=== PATIENT | male | born 1985 | race Hispanic/Latino ===

== ENCOUNTER 2018-01-29 18:46 | Emergency (ER) | payer OTHER ==
[2018-01-29] MEDS ORDERED: NA CHLORIDE 0.9% 1,000 ML ONE (20:06)
[2018-01-29 20:13] LABS: Urine Blood TRACE (NEG); Urine Glucose NEGATIVE (NEG); Urine Protein NEGATIVE (NEG); Urine pH 6.5 (5.0-7.0)
[2018-01-29 20:18] LABS: Absolute Lymphocytes (CBC) 1.5 K/uL (0.7-4.9); Absolute Monocytes 0.7 K/uL (0.1-1.3); Absolute Neutrophil 8.8 K/uL (1.8-8.0); Basophils % 0.4 % (0-1.3); Eosinophils % 1.3 % (0-4.4); Hematocrit 43.5 % (39.6-49.0); Lymphocytes % 13.2 % (15.3-44.8); MCH 30.4 pg (27.0-35.0); MCV 90.3 fL (80-100); MPV 7.7 fL (7.6-11.3); RBC Red Blood Cell Count 4.82 M/uL (4.33-5.43)
[2018-01-29 20:22] LABS: Urine Bacteria <20 /HPF (NONE SEEN); Urine Culture Reflex Order REFLEXED; Urine RBC <5 /HPF (NONE SEEN)
[2018-01-29] MEDS ORDERED: MORPHINE 4 MG/ML SYR ONE (20:40)
[2018-01-29] MEDS ORDERED: ONDANSETRON 4 MG/2 ML VIAL ONE (20:40)
[2018-01-29 20:46] LABS: ALT/SGPT 59 U/L (12-78); AST/SGOT 32 U/L (15-37); Albumin 3.9 g/dL (3.4-5.0); Alkaline Phosphatase 160 U/L (45-117); Amylase Level 64 U/L (25-115); BUN Blood Urea Nitrogen 10 mg/dL (7-18); Bicarbonate 28 mmol/L (21-32); Bilirubin Direct < 0.1 mg/dL (0-0.2); Bilirubin Total 0.4 mg/dL (0.2-1.0); Glucose Level 88 mg/dL (74-106); Lipase 116 U/L (73-393); Potassium 3.8 mmol/L (3.5-5.1); Protein, Total 8.5 g/dL (6.4-8.2); Sodium Level 140 mmol/L (136-145)
--- NOTE | 2018-01-29 21:21 | EDPHYS ---
Physician Documentation [facility] Name: Aidan East Age: 32 yrs Sex: Male : 1985 Arrival Date: 01/29/2018 Time: 18:48 Bed 20 Private MD: ED Physician Manuel Jackson Historical: - Allergies: 01/29 19:04 No Known Allergies; sv - Home Meds: 19:04 None [Active]; sv - PMHx: 19:04 paraplegic; UTI; sv - PSHx: 19:04 T12 vertebrae; sv - Immunization history:: Adult Immunizations up to date. - Social history:: Smoking status: Patient/guardian denies using tobacco. - Ebola Screening: : No symptoms or risks identified at this time. Vital Signs: 19:04 BP 124 / 90; Pulse 126; Resp 18; Temp 98.6(O); Pulse Ox 96% ; Weight 113.4 kg (R); sv 20:18 BP 127 / 84; Pulse 104; Resp 16 S; Pulse Ox 97% on R/A; jd3 21:23 BP 136 / 78; Pulse 100; Resp 15 S; Pulse Ox 96% on R/A; jd3 MDM: 19:08 Medical screening is not applicable. 01/29 19:18 Order name: Amylase, Serum; Complete Time: 20:56 v 01/29 19:18 Order name: Basic Metabolic Panel; Complete Time: 20:56 v 01/29 19:18 Order name: CBC with Diff; Complete Time: 20:56 v 01/29 19:18 Order name: Creatinine for Radiology; Complete Time: 20:56 v 01/29 19:18 Order name: Hepatic Function; Complete Time: 20:56 v 01/29 19:18 Order name: Lipase; Complete Time: 20:56 v 01/29 19:18 Order name: Urine Microscopic Only; Complete Time: 20:25 v 01/29 19:18 Order name: IV Saline Lock; Complete Time: 20:08 v 01/29 19:18 Order name: Labs collected and sent; Complete Time: 20:08 v 01/29 20:04 Order name: Urine Dipstick--Ancillary (enter results); Complete Time: 20:25 rg2 01/29 20:23 Order name: Urine Culture EDVA 01/29 19:18 Order name: Urine Dipstick-Ancillary (obtain specimen); Complete Time: 20:09 kav Administered Medications: 20:08 Drug: NS 0.9% 1000 ml Route: IV; Rate: 1 bolus; Site: right antecubital; jd3 21:24 Follow up: Response: No adverse reaction; IV Status: Completed infusion; IV Intake: jd3 1000ml 20:41 Drug: Zofran 4 mg Route: IVP; Site: right antecubital; jd3 21:24 Follow up: Response: No adverse reaction jd3 20:41 Drug: morphine 4 mg Route: IVP; Site: right antecubital; jd3 21:24 Follow up: Response: No adverse reaction jd3 Disposition: 01/29/18 20:57 Discharged to Home. Impression: Urinary tract infection, site not specified. - Condition is Stable. - Discharge Instructions: Urinary Tract Infection, Adult, [id number], Antibiotic Medicine, [id number]. - Prescriptions for Zofran 4 mg Oral Tablet - take 1 tablet by ORAL route every 12 hours As needed; 20 tablet. Tramadol 50 mg Oral Tablet - take 1 tablet by ORAL route every 8 hours as needed; 12 tablet. - Medication Reconciliation Form, Thank You Letter, Antibiotic Education form. - Follow up: Private Physician; When: 2 - 3 days; Reason: If symptoms return, Recheck today's complaints, Continuance of care, Re-evaluation by your physician. - Problem is new. - Symptoms have improved. - Notes: Continue to take the Cipro antibiotic prescribed to you by your PCP/[facility] Addendum: 02/27/2018 06:19 Addendum: ROS: Constitutional,ENT, Dental, Breast, CV, Respiratory, GI, HEM/ONC, OB, k av Musculoskeletal, Neuro, Endocrine, Infectious Disease, Mental Health, Integumentary are negative. C/O : fever, chills, rigors, urinary urgency. Exam: Head, Eyes, ENT, Mouth/Dental, Neck, Respiratory, CV, GI, Lymphatic, Integumentary, Musculoskeletal, Neuro, Psychiatric. Differential DX: UTI, Pyelonephritis, Cystitis. 03/05/2018 07:05 Co-signature as Attending Physician, Manuel Jackson MD. r n Signatures: Dispatcher [employer] Olive Mckoy RN RN Kristen Flor, PRECISION MECHANICAL INSTRUMENT MAKER PRECISION MECHANICAL INSTRUMENT MAKER Manuel Madrid MD MD rn Davies, Jonathon, RN RN jd3 Corrections: (The following items were deleted from the chart) 01/29 21:25 20:57 01/29/2018 20:57 Discharged to Home. Impression: Urinary tract infection, site jd3 not specified. Condition is Stable. Forms are Medication Reconciliation Form, Thank You Letter, Antibiotic Education, Prescription Opioid Use. Follow up: Private Physician; When: 2 - 3 days; Reason: If symptoms return, Recheck today's complaints, Continuance of care, Re-evaluation by your physician. Problem is new. Symptoms have improved. kav
--- NOTE | 2018-01-29 21:21 | ER ---
Nurse's Notes [facility] Name: Aidan East Age: 32 yrs Sex: Male : 1985 Arrival Date: 01/29/2018 Time: 18:48 Bed 20 Private MD: Diagnosis: Urinary tract infection, site not specified Presentation: 01/29 19:02 Presenting complaint: Patient states: that he uses condom caths and was incontinent sv yesterday. Pt stated that he started having chills today. Hx of urosepsis. Transition of care: patient was not received from another setting of care. Onset of symptoms was January 29, 2018. Care prior to arrival: None. 19:02 Method Of Arrival: Wheelchair sv 19:02 Acuity: SPIKE 3 sv 19:45 Risk Assessment: Do you want to hurt yourself or someone else? Patient reports no jd3 desire to harm self or others. Initial Sepsis Screen: Does the patient meet any 2 criteria? HR > 90 bpm. Yes Does the patient have a suspected source of infection? No. Patient's initial sepsis screen is negative. Historical: - Allergies: 19:04 No Known Allergies; sv - Home Meds: 19:04 None [Active]; sv - PMHx: 19:04 paraplegic; UTI; sv - PSHx: 19:04 T12 vertebrae; sv - Immunization history:: Adult Immunizations up to date. - Social history:: Smoking status: Patient/guardian denies using tobacco. - Ebola Screening: : No symptoms or risks identified at this time. Screenin:44 Abuse screen: Denies threats or abuse. Nutritional screening: No deficits noted. jd3 Tuberculosis screening: No symptoms or risk factors identified. Fall Risk Ambulatory Aid- Crutches/Cane/Walker (15 pts). Gait- Normal/Bed Rest/Wheelchair (0 pts) Mental Status- Oriented to own ability (0 pts). Total Kuhn Fall Scale indicates No Risk (0-24 pts). Assessment: 19:43 General: Appears in no apparent distress. uncomfortable, Behavior is calm, cooperative, jd3 appropriate for age. Pain: Denies pain. Neuro: Level of Consciousness is awake, alert, obeys commands, Oriented to person, place, time, situation, Appropriate for age. Cardiovascular: Capillary refill < 3 seconds Patient's skin is warm and dry. Respiratory: Airway is patent Respiratory effort is even, unlabored, Respiratory pattern is regular, symmetrical. GI: No signs and/or symptoms were reported involving the gastrointestinal system. : Reports burning with urination, incontinence, history of urosepsis. EENT: No signs and/or symptoms were reported regarding the EENT system. Derm: No signs and/or symptoms reported regarding the dermatologic system. 20:30 Reassessment: Patient appears in no apparent distress at this time. Patient and/or jd3 family updated on plan of care and expected duration. Pain level reassessed. Patient is alert, oriented x 3, equal unlabored respirations, skin warm/dry/pink. 21:22 Reassessment: Patient appears in no apparent distress at this time. Patient and/or jd3 family updated on plan of care and expected duration. Pain level reassessed. Patient is alert, oriented x 3, equal unlabored respirations, skin warm/dry/pink. pt reported understanding of discharge instructions. Vital Signs: 19:04 BP 124 / 90; Pulse 126; Resp 18; Temp 98.6(O); Pulse Ox 96% ; Weight 113.4 kg (R); sv 20:18 BP 127 / 84; Pulse 104; Resp 16 S; Pulse Ox 97% on R/A; jd3 21:23 BP 136 / 78; Pulse 100; Resp 15 S; Pulse Ox 96% on R/A; jd3 ED Course: 18:48 Patient arrived in ED. rg4 19:04 Triage completed. sv 19:05 Arm band placed on right wrist. sv 19:08 Kristen Wasserman FNP is PHCP. kav 19:08 Manuel Jackson MD is Attending Physician. kav 19:22 Mitchell Ortiz RN is Primary Nurse. jd3 19:45 Patient has correct armband on for positive identification. Bed in low position. Call jd3 light in reach. Side rails up X 1. 19:57 Inserted saline lock: 20 gauge in right antecubital area, using aseptic technique. jd3 Blood collected. 21:21 No provider procedures requiring assistance completed. IV discontinued, intact, jd3 bleeding controlled, No redness/swelling at site. Pressure dressing applied. Administered Medications: 20:08 Drug: NS 0.9% 1000 ml Route: IV; Rate: 1 bolus; Site: right antecubital; jd3 21:24 Follow up: Response: No adverse reaction; IV Status: Completed infusion; IV Intake: jd3 1000ml 20:41 Drug: Zofran 4 mg Route: IVP; Site: right antecubital; jd3 21:24 Follow up: Response: No adverse reaction jd3 20:41 Drug: morphine 4 mg Route: IVP; Site: right antecubital; jd3 21:24 Follow up: Response: No adverse reaction jd3 Intake: 21:24 IV: 1000ml; Total: 1000ml. jd3 Outcome: 20:57 Discharge ordered by . sukhwinder 21:21 Discharged to home via wheelchair, with family. jd3 21:21 Condition: stable 21:21 Discharge instructions given to patient, Instructed on discharge instructions, follow up and referral plans. medication usage, Demonstrated understanding of instructions, follow-up care, medications, Prescriptions given X 2. 21:25 Patient left the ED. jd3 Signatures: Olive Looney, RN RN Kristen Flor, ASSOCIATE DIRECTOR OF NURSING ASSOCIATE DIRECTOR OF NURSING Margi Rosales 4 Mitchell Ortiz RN RN jd3 Corrections: (The following items were deleted from the chart) 19:05 19:04 BP 124 / 90; Pulse 126bpm; Resp 18bpm; Pulse Ox 96%; 113.4 kg Reported; sv sv
[2018-01-29 22:19] VITALS: TEMP 98.6
[2018-01-29 22:21] VITALS: BP 136/78; O2SAT 96
== END 2018-01-29 21:25 | disposition home or self-care (01) ==
LOC: ER 18:46
DX: N39.0 Urinary tract infection, site not specified (principal)
CPT/HCPCS: 36415; 80048; 80076; 81003; 81015; 82150; 83690; 85025; 87077; 87086; 87088; 87186; 96361; 96374; 96375; 99284; J2405; J7030

== ENCOUNTER 2018-07-11 15:46 | Observation (INO) | payer OTHER ==
[2018-07-11] MEDS ORDERED: ONDANSETRON 4 MG/2 ML VIAL ONE (18:40)
[2018-07-11] MEDS ORDERED: FENTANYL CITR 100 MCG/2 ML ONE (18:40)
[2018-07-11] MEDS ORDERED: NA CHLORIDE 0.9% 1,000 ML ONE ×2 (18:40→20:34)
[2018-07-11 18:46] LABS: Absolute Lymphocytes (CBC) 1.8 K/uL (0.7-4.9); Absolute Monocytes 1.1 K/uL (0.1-1.3); Absolute Neutrophil 16.5 K/uL (1.8-8.0); Basophils % 0.4 % (0-1.3); Eosinophils % 0.4 % (0-4.4); Hematocrit 42.6 % (39.6-49.0); Lymphocytes % 9.2 % (15.3-44.8); MPV 7.6 fL (7.6-11.3); Monocytes % 5.7 % (3.3-12.3); RBC Red Blood Cell Count 4.79 M/uL (4.33-5.43)
[2018-07-11 19:03] LABS: ALT/SGPT 72 U/L (12-78); AST/SGOT 36 U/L (15-37); Alkaline Phosphatase 203 U/L (45-117); BUN Blood Urea Nitrogen 9 mg/dL (7-18); Bicarbonate 24 mmol/L (21-32); Bilirubin Direct 0.2 mg/dL (0-0.2); Bilirubin Total 0.7 mg/dL (0.2-1.0); Glucose Level 99 mg/dL (74-106); Lipase 70 U/L (73-393); Protein, Total 9.2 g/dL (6.4-8.2); Sodium Level 133 mmol/L (136-145)
[2018-07-11 20:20] LABS: Urine Bacteria <20 /HPF (NONE SEEN); Urine Culture Reflex Order REFLEXED; Urine RBC <5 /HPF (NONE SEEN)
[2018-07-11 20:21] LABS: Urine Blood NEGATIVE (NEG); Urine Glucose NEGATIVE (NEG); Urine Protein 1+ (NEG); Urine pH 7.5 (5.0-7.0)
[2018-07-11 20:21] LABS: Urine Mucus 2+ /HPF (NONE SEEN); Urine Sperm PRESENT (NONE SEEN)
[2018-07-11] MEDS ORDERED: ACETAMINOPHEN 500 MG TAB ONE (20:34)
--- NOTE | 2018-07-11 20:49 | EDPHYS ---
Physician Documentation [facility] Name: Aidan East Age: 33 yrs Sex: Male : 1985 Arrival Date: 07/11/2018 Time: 15:51 Bed 15 Private MD: ED Physician Angelo Lopez HPI: 07/11 18:00 This 33 yrs old Male presents to ER via Wheelchair with complaints of Urinary cp Problem, Fever. 18:00 The patient presents with flank pain, urinary symptoms. cp 18:00 Onset: The symptoms/episode began/occurred gradually. cp 18:00 Associated signs and symptoms: Pertinent positives: abdominal pain, fever, Pertinent cp negatives: constipation, diarrhea, vomiting. Severity of symptoms: in the emergency department the symptoms are unchanged, despite home interventions. Patient reports he has been taking prescribed Sulfa antibiotic for symptoms. Historical: - Allergies: 16:00 No Known Allergies; hj - Home Meds: 16:00 Sulfasalazine Oral [Active]; hj - PMHx: 16:00 paraplegic; UTI; hj - PSHx: 16:00 T12 vertebrae; hj - Immunization history:: Adult Immunizations up to date. - Social history:: Smoking status: Patient uses tobacco products, Patient uses alcohol. - Ebola Screening: : Patient negative for fever greater than or equal to 101.5 degrees Fahrenheit, and additional compatible Ebola Virus Disease symptoms Patient denies exposure to infectious person Patient denies travel to an Ebola-affected area in the 21 days before illness onset. ROS: 18:05 Constitutional: Positive for chills, fever, Negative for body aches, poor PO intake. cp 18:05 Eyes: Negative for injury, pain, redness, and discharge. cp 18:05 ENT: Negative for drainage from ear(s), ear pain, sore throat, difficulty swallowing, difficulty handling secretions. 18:05 Cardiovascular: Negative for chest pain. 18:05 Respiratory: Negative for cough, shortness of breath, wheezing. 18:05 Abdomen/GI: Positive for abdominal pain. 18:05 Back: Positive for flank pain. 18:05 : Positive for urinary symptoms. 18:05 Skin: Negative for cellulitis, rash. 18:05 All other systems are negative. Exam: 18:12 Constitutional: The patient appears in no acute distress, alert, awake, non-toxic, well cp developed, well nourished, febrile. 18:12 Head/Face: Normocephalic, atraumatic. Eyes: Pupils equal round and reactive to light, cp extra-ocular motions intact. Lids and lashes normal. Conjunctiva and sclera are non-icteric and not injected. Cornea within normal limits. Periorbital areas with no swelling, redness, or edema. ENT: Nares patent. No nasal discharge, no septal abnormalities noted. Tympanic membranes are normal and external auditory canals are clear. Oropharynx with no redness, swelling, or masses, exudates, or evidence of obstruction, uvula midline. Mucous membranes moist. Chest/axilla: Normal chest wall appearance and motion. Nontender with no deformity. No lesions are appreciated. 18:12 Cardiovascular: Rate: tachycardic, Rhythm: regular. 18:12 Respiratory: the patient does not display signs of respiratory distress, Respirations: normal, no use of accessory muscles, no retractions, no splinting, no tachypnea, Breath sounds: are clear throughout, no decreased breath sounds, no stridor, no wheezing. 18:12 Abdomen/GI: Inspection: abdomen appears normal, Bowel sounds: active, all quadrants, Palpation: soft, in all quadrants, moderate abdominal tenderness, in the right lower quadrant and left lower quadrant, rebound tenderness, is not appreciated, involuntary guarding, is not appreciated. 18:12 Back: CVA tenderness, is noted on the left. 18:12 Skin: cellulitis, is not appreciated, no rash present. 18:12 Neuro: Orientation: to person, place \T\ time. Mentation: is normal. Vital Signs: 16:00 BP 103 / 70; Pulse 118; Resp 18; Temp 100.0(O); Pulse Ox 99% on R/A; Weight 117.93 kg; hj Height 6 ft. 1 in. (185.42 cm); Pain 0/10; 18:20 BP 129 / 82; Pulse 121; Resp 20; Temp 99.8(O); Pulse Ox 97% on R/A; mh5 19:13 BP 128 / 65; Pulse 114; Resp 20 S; Temp 101.6(O); Pulse Ox 96% on R/A; cc3 20:35 BP 126 / 67; Pulse 109; Resp 18 S; Pulse Ox 96% on R/A; cc3 21:18 BP 125 / 73; Pulse 110; Resp 18 S; Pulse Ox 97% on R/A; cc3 22:25 BP 112 / 77; Pulse 108; Resp 19 S; Temp 99.8(O); Pulse Ox 96% on R/A; cc3 16:00 Body Mass Index 34.30 (117.93 kg, 185.42 cm) hj MDM: 17:32 Patient medically screened. cp 18:00 Differential diagnosis: UTI, urinary retention, Tejada catheter problem, prostatitis, cp urethritis, sepsis, pyelonephritis, renal stone. 20:45 Data reviewed: vital signs, nurses notes, lab test result(s), and as a result, I will cp admit patient. 20:45 Counseling: I had a detailed discussion with the patient and/or guardian regarding: the cp historical points, exam findings, and any diagnostic results supporting the discharge/admit diagnosis, lab results. Physician consultation: Melanie Castano MD was called at 20:45, was contacted at 20:45, regarding admission, to the medical/surgical unit. patient's condition. 07/11 17:53 Order name: Urine Microscopic Only; Complete Time: 20:34 cp 07/11 17:53 Order name: Basic Metabolic Panel; Complete Time: 19:57 cp 07/11 17:53 Order name: CBC with Diff; Complete Time: 19:01 cp 07/11 19:01 Interpretation: Normal except: WBC 19.6; MOISE% 84.3; LYM% 9.2; NEUT A 16.5. cp 07/11 17:53 Order name: Creatinine for Radiology; Complete Time: 19:57 cp 07/11 17:53 Order name: Hepatic Function; Complete Time: 19:57 cp 07/11 17:53 Order name: Lipase; Complete Time: 19:57 cp 07/11 17:53 Order name: Blood Culture Adult (2) cp 07/11 17:53 Order name: Procalcitonin; Complete Time: 19:57 cp 07/11 17:53 Order name: Lactate; Complete Time: 19:57 cp 07/11 19:38 Order name: Urine Dipstick--Ancillary (enter results); Complete Time: 20:34 em1 07/11 20:21 Order name: Urine Culture EDMS 07/11 21:19 Order name: Urinalysis EDMS 07/11 21:19 Order name: CBC with Automated Diff EDMS 07/11 21:19 Order name: CBC with Automated Diff EDMS 07/11 17:53 Order name: Urine Dipstick-Ancillary (obtain specimen); Complete Time: 20:09 cp 07/11 17:53 Order name: IV Saline Lock; Complete Time: 18:40 cp 07/11 20:49 Order name: CT Stone Protocol; Complete Time: 21:46 cp 07/11 21:47 Interpretation: Report reviewed. cp 07/11 21:19 Order name: NPO EDMS 07/11 21:19 Order name: Comprehensive Metabolic Panel EDMS 07/11 21:19 Order name: Comprehensive Metabolic Panel EDMS 07/11 21:19 Order name: Magnesium EDMS 07/11 21:19 Order name: Magnesium EDMS 07/11 21:19 Order name: Phosphorus EDMS 07/11 21:19 Order name: Phosphorus EDMS 07/11 17:53 Order name: Labs collected and sent; Complete Time: 18:40 cp Administered Medications: 18:40 Drug: fentaNYL (PF) 50 mcg Route: IVP; Site: right antecubital; la1 19:15 Follow up: Response: No adverse reaction cc3 18:40 Drug: Zofran 4 mg Route: IVP; Site: right antecubital; la1 19:15 Follow up: Response: No adverse reaction cc3 18:40 Drug: NS 0.9% 1000 ml Route: IV; Rate: 1 bolus; Site: right antecubital; la1 19:45 Follow up: Response: No adverse reaction; IV Status: Completed infusion; IV Intake: cc3 1000ml 20:20 Drug: Tylenol 1000 mg Route: PO; cc3 21:00 Follow up: Response: No adverse reaction cc3 20:25 Drug: NS 0.9% 1000 ml Route: IV; Rate: 1 bolus; Site: right antecubital; cc3 21:30 Follow up: Response: No adverse reaction; IV Status: Completed infusion; IV Intake: cc3 1000ml 21:30 Drug: Rocephin - (cefTRIAXone) 1 grams Route: IVPB; Infused Over: 30 mins; Site: right cc3 antecubital; 22:00 Follow up: Response: No adverse reaction; IV Status: Completed infusion; IV Intake: [id number] Disposition: 07/11/18 20:48 Hospitalization ordered by Melanie Castano for Observation. Preliminary diagnosis is Urinary tract infection, site not specified. - Bed requested for Telemetry/MedSurg (observation). - Status is Observation. cc3 - Condition is Stable. - Problem is new. - Symptoms have improved. UTI on Admission? No Addendum: 07/22/2018 08:20 Co-signature as Attending Physician, Angelo Lopez MD I agree with the assessment and k plan of care. Signatures: Dispatcher [employer] EDPA Angelo Lopez MD MD [facility] Richard Atwood RN RN la1 Navjot Gonzalez RN RN Yobany Muse PA PA cp Garcia, Cindy, RN RN Zakiya Lino cc3 Corrections: (The following items were deleted from the chart) 07/11 20:11 20:03 Tejada ordered. cp cc3 21:45 20:48 Hospitalization Ordered by Melanie Castano MD for Observation. Preliminary cg diagnosis is Urinary tract infection, site not specified. Bed requested for Telemetry/MedSurg (observation). Status is Observation. Condition is Stable. Problem is new. Symptoms have improved. UTI on Admission? No. cp 22:48 21:45 07/11/2018 20:48 Hospitalization Ordered by Melanie Castano MD for Observation. cc3 Preliminary diagnosis is Urinary tract infection, site not specified. Bed requested for Telemetry/MedSurg (observation). Status is Observation. Condition is Stable. Problem is new. Symptoms have improved. UTI on Admission? No.
--- NOTE | 2018-07-11 20:49 | ER ---
Nurse's Notes [facility] Name: Aidan East Age: 33 yrs Sex: Male : 1985 Arrival Date: 07/11/2018 Time: 15:51 Bed 15 Private MD: Diagnosis: Urinary tract infection, site not specified Presentation: 07/11 15:57 Presenting complaint: Patient states: im paralyze waist down, i have fever for 2 days, hj i think its UTI, i used condom cath; reports nausea; leonardo been taking sulfa oral for UTI and its seems its not helping;. Transition of care: patient was not received from another setting of care. Onset of symptoms was July 11, 2018. Risk Assessment: Do you want to hurt yourself or someone else? Patient reports no desire to harm self or others. Initial Sepsis Screen: Does the patient meet any 2 criteria? Yes Does the patient have a suspected source of infection? Yes: Catheter related infection ([place]/dialysis/PICC/central line). Care prior to arrival: None. 15:57 Method Of Arrival: Wheelchair 15:57 Acuity: SPIKE 3 hj Triage Assessment: 16:00 General: Appears in no apparent distress. uncomfortable, Behavior is calm, cooperative, hj appropriate for age. Pain: Denies pain. Historical: - Allergies: 16:00 No Known Allergies; hj - Home Meds: 16:00 Sulfasalazine Oral [Active]; hj - PMHx: 16:00 paraplegic; UTI; hj - PSHx: 16:00 T12 vertebrae; hj - Immunization history:: Adult Immunizations up to date. - Social history:: Smoking status: Patient uses tobacco products, Patient uses alcohol. - Ebola Screening: : Patient negative for fever greater than or equal to 101.5 degrees Fahrenheit, and additional compatible Ebola Virus Disease symptoms Patient denies exposure to infectious person Patient denies travel to an Ebola-affected area in the 21 days before illness onset. Screenin:00 Abuse screen: Denies threats or abuse. Denies injuries from another. Nutritional hj screening: No deficits noted. Tuberculosis screening: No symptoms or risk factors identified. Fall Risk None identified. Assessment: 18:39 General: Appears in no apparent distress. Behavior is calm, cooperative. Pain: la1 Complains of pain in left low back Pain. Neuro: Level of Consciousness is awake, alert, obeys commands, Oriented to person, place, time, situation. Cardiovascular: Capillary refill < 3 seconds Patient's skin is warm and dry. Respiratory: Airway is patent Respiratory effort is even, unlabored, Respiratory pattern is regular, symmetrical, Breath sounds are clear bilaterally. GI: Abdomen is non-distended, obese, Bowel sounds present X 4 quads. Abd is soft and non tender X 4 quads. : [place] in place. 19:15 Reassessment: Patient appears in no apparent distress at this time. Patient and/or cc3 family updated on plan of care and expected duration. Pain level reassessed. Patient is alert, oriented x 3, equal unlabored respirations, skin warm/dry/pink. Received this male patient from morning shift LANCE Ramos as a case of fever. 20:20 Reassessment: Patient appears in no apparent distress at this time. Patient and/or cc3 family updated on plan of care and expected duration. Pain level reassessed. Patient is alert, oriented x 3, equal unlabored respirations, skin warm/dry/pink. 21:23 Reassessment: Patient appears in no apparent distress at this time. Patient and/or cc3 family updated on plan of care and expected duration. Pain level reassessed. Patient is alert, oriented x 3, equal unlabored respirations, skin warm/dry/pink. 22:25 Reassessment: Patient appears in no apparent distress at this time. Patient and/or cc3 family updated on plan of care and expected duration. Pain level reassessed. Patient is alert, oriented x 3, equal unlabored respirations, skin warm/dry/pink. Room available to 416, report handed over to LANCE Wheat for continuity of care. 22:40 Reassessment: Patient left ER for admission vitally stable by stretcher escorted by ED cc3 fanta Reddy. Vital Signs: 16:00 BP 103 / 70; Pulse 118; Resp 18; Temp 100.0(O); Pulse Ox 99% on R/A; Weight 117.93 kg; hj Height 6 ft. 1 in. (185.42 cm); Pain 0/10; 18:20 BP 129 / 82; Pulse 121; Resp 20; Temp 99.8(O); Pulse Ox 97% on R/A; 5 19:13 BP 128 / 65; Pulse 114; Resp 20 S; Temp 101.6(O); Pulse Ox 96% on R/A; cc3 20:35 BP 126 / 67; Pulse 109; Resp 18 S; Pulse Ox 96% on R/A; cc3 21:18 BP 125 / 73; Pulse 110; Resp 18 S; Pulse Ox 97% on R/A; cc3 22:25 BP 112 / 77; Pulse 108; Resp 19 S; Temp 99.8(O); Pulse Ox 96% on R/A; cc3 16:00 Body Mass Index 34.30 (117.93 kg, 185.42 cm) hj ED Course: 15:51 Patient arrived in ED. mr 15:59 Triage completed. hj 16:00 Arm band placed on left wrist. hj 16:00 Patient has correct armband on for positive identification. Call light in reach. Side hj rails up X 1. 17:31 Yobany Muse PA is PHCP. cp 17:31 Angelo Lopez MD is Attending Physician. cp 18:19 Richard Atwood RN is Primary Nurse. la1 18:24 Bed in low position. Pulse ox on. NIBP on. mh5 18:39 No provider procedures requiring assistance completed. Inserted saline lock: 20 gauge la1 in right antecubital area, using aseptic technique. Blood collected. 20:48 Melanie Castano MD is Hospitalizing Provider. cp 21:[address] via stretcher. kc3 21:09 CT completed. Patient tolerated procedure well. Patient moved back from CT. kc3 21:09 CT Stone Protocol In Process Unspecified. EDMS 22:25 Patient admitted, IV remains in place. cc3 Administered Medications: 18:40 Drug: fentaNYL (PF) 50 mcg Route: IVP; Site: right antecubital; la1 19:15 Follow up: Response: No adverse reaction cc3 18:40 Drug: Zofran 4 mg Route: IVP; Site: right antecubital; la1 19:15 Follow up: Response: No adverse reaction cc3 18:40 Drug: NS 0.9% 1000 ml Route: IV; Rate: 1 bolus; Site: right antecubital; la1 19:45 Follow up: Response: No adverse reaction; IV Status: Completed infusion; IV Intake: cc3 1000ml 20:20 Drug: Tylenol 1000 mg Route: PO; cc3 21:00 Follow up: Response: No adverse reaction cc3 20:25 Drug: NS 0.9% 1000 ml Route: IV; Rate: 1 bolus; Site: right antecubital; cc3 21:30 Follow up: Response: No adverse reaction; IV Status: Completed infusion; IV Intake: cc3 1000ml 21:30 Drug: Rocephin - (cefTRIAXone) 1 grams Route: IVPB; Infused Over: 30 mins; Site: right cc3 antecubital; 22:00 Follow up: Response: No adverse reaction; IV Status: Completed infusion; IV Intake: [id number] Intake: 19:45 IV: 1000ml; Total: 1000ml. cc3 21:30 IV: 1000ml; Total: 2000ml. cc3 22:00 IV: 50ml; Total: 2050ml. cc3 Outcome: 20:48 Decision to Hospitalize by Provider. cp 22:25 Admitted to Tele accompanied by tech, via stretcher, room 416, with chart, Report cc3 called to LANCE Wheat 22:25 Condition: stable 22:25 Instructed on the need for admit, Demonstrated understanding of instructions. 22:48 Patient left the ED. cc3 Signatures: Dispatcher [employer] LUBA SuttonDidi Lee RN RN Navjot Simeon RN RN Yobany Lin PA PA cp Martinez, Maria Quyen Wood 3 Zakiya Lino cc3 Corrections: (The following items were deleted from the chart) 16:02 16:00 Pulse 118bpm; Resp 18bpm; Pulse Ox 99% RA; Temp 100.0F Oral; 117.93 kg; Height 6 hj ft. 1 in.; BMI: 34.3; Pain 0/10; hj
[2018-07-11] MEDS ORDERED: CEFTRIAXONE 1000 MG/VIAL ONE (21:07)
[2018-07-11] MEDS ORDERED: NA CHLORIDE 0.9% 50 ML IV ONE (21:07)
[2018-07-11] MEDS ORDERED: ONDANSETRON 4 MG/2 ML VIAL IV PRN (21:07)
[2018-07-11] MEDS ORDERED: ACETAMINOPHEN 500 MG TAB PO PRN (21:07)
[2018-07-11] MEDS ORDERED: MAGNESIUM HYDROXIDE 8% 30 ML PO PRN (21:07)
--- NOTE | 2018-07-11 21:35 | RAD REPORT ---
EXAM DESCRIPTION: CT - Stone Protocol - 07/11/2018 9:09 pm CLINICAL HISTORY: Flank pain. FLANK PAIN COMPARISON: <Comparisons> TECHNIQUE: Axial images were obtained without oral or IV contrast. Lack of contrast limits solid org an and vascular assessment. The [id number] spans the entirety of the system partially obscuring uppermost abdomen and lung bases. Coronal reformatted images were obtained and reviewed. All CT scans are performed using dose optimization technique as appropriate and may include automated exposure control or mA/KV adjustment according to patient size. FINDINGS: The lower lung canchola are clear. Imaged portions of the liver and spleen show no suspicious findings on non-contrast imaging. The panc reas and adrenal glands are normal. No pathologic lymphadenopathy in the abdomen or pelvis. No urinary tract stones or obstructive uropathy. No bowel obstruction, free air, free fluid or abscess. Normal appendix noted. Prominent hardware is present spanning T11-L1 with old T12 compression fracture noted. IVC filter is noted. IMPRESSION: No urinary tract stones or obstructive uropathy.
[2018-07-11] MEDS ORDERED: VANCOMYCIN 1.25 GM in NA CHLORIDE 0.9% 250 ML IVPB SCH (22:00)
[2018-07-11] MEDS ORDERED: VANCOMYCIN 1 GM/VIAL ONE (23:37)
[2018-07-11] MEDS ORDERED: VANCOMYCIN 500 MG/VIAL ONE (23:38)
[2018-07-11] MEDS ORDERED: NA CHLORIDE 0.9% 100 ML ONE (23:40)
[2018-07-11] MEDS: NA CHLORIDE 0.9% 1,000 ML IV SCH (23:47)
[2018-07-11] MEDS: Levofloxacin500mg IV 500 MG/100 ML BAG IV SCH (23:47)
[2018-07-12 01:10] VITALS: BMI 36.1
[2018-07-12] MEDS: MORPHINE 4 MG/ML SYR IV PRN ×4 (01:29→22:10)
[2018-07-12 06:03] LABS: ALT/SGPT 51 U/L (12-78); AST/SGOT 21 U/L (15-37); Albumin 3.2 g/dL (3.4-5.0); Alkaline Phosphatase 163 U/L (45-117); BUN Blood Urea Nitrogen 7 mg/dL (7-18); Bicarbonate 23 mmol/L (21-32); Bilirubin Total 0.9 mg/dL (0.2-1.0); Glucose Level 94 mg/dL (74-106); Magnesium 2.3 mg/dL (1.8-2.4); Phosphorus 2.5 mg/dL (2.5-4.9); Potassium 3.8 mmol/L (3.5-5.1); Protein, Total 7.3 g/dL (6.4-8.2); Sodium Level 138 mmol/L (136-145)
[2018-07-12 06:08] LABS: Absolute Lymphocytes (CBC) 2.8 K/uL (0.7-4.9); Absolute Monocytes 1.2 K/uL (0.1-1.3); Absolute Neutrophil 10.2 K/uL (1.8-8.0); Basophils % 0.3 % (0-1.3); Eosinophils % 1.4 % (0-4.4); Hematocrit 36.9 % (39.6-49.0); Lymphocytes % 19.4 % (15.3-44.8); MPV 7.8 fL (7.6-11.3); Monocytes % 8.5 % (3.3-12.3); RBC Red Blood Cell Count 4.18 M/uL (4.33-5.43)
[2018-07-12] MEDS ORDERED: KCL 20 MEQ/100 mL IVPB 20 MEQ/100 ML BAG IV SCH (07:00)
[2018-07-12] MEDS: ENOXAPARIN 40 MG/0.4 ML SQ SCH (08:40)
[2018-07-12] MEDS: VANCOMYCIN 1.75 GM in NA CHLORIDE 0.9% 500 ML IVPB SCH ×2 (10:57→22:09)
[2018-07-12 11:13] LABS: Urine Appearance CLEAR; Urine Bilirubin NEGATIVE (NEG); Urine Blood NEGATIVE (NEG); Urine Color YELLOW; Urine Glucose NEGATIVE (NEG); Urine Protein NEGATIVE (NEG); Urine pH 6.5 (5.0-7.0)
[2018-07-12 11:15] LABS: Urine Microscopic Reflex ORDER UMIC
[2018-07-12 11:23] LABS: Urine Bacteria <20 /HPF (NONE SEEN); Urine Culture Reflex Order REFLEXED; Urine RBC <5 /HPF (NONE SEEN)
[2018-07-12] MEDS: NA CHLORIDE 0.9% 1,000 ML IV SCH ×2 (16:34→22:09)
--- NOTE | 2018-07-12 18:08 | P.PN ---
Subjective Date of Service: 07/12/18 Patient seen and examined at bedside with RN. Chart reviewed. Case discussed with patient at bedside. This morning no complaints to offer. Review of Systems 10-point ROS is otherwise unremarkable Physical Examination - Vital Signs Temperature: 97.6 F Blood Pressure: 116/68 Pulse: 89 Respirations: 22 Pulse Ox (%): 98 - Physical Exam General: Alert, In no apparent distress HEENT: Atraumatic, PERRLA, EOMI Neck: Supple, JVD not distended Respiratory: Clear to auscultation bilaterally, Normal air movement Cardiovascular: Regular rate/rhythm, Normal S1 S2 Gastrointestinal: Normal bowel sounds, No tenderness Musculoskeletal: Other (Paraplegia) Integumentary: No rashes Neurological: Normal speech, Normal affect Lymphatics: No axilla or inguinal lymphadenopathy - Studies Laboratory Data (last 24 hrs) 07/11/18 18:35: Creatinine 0.85 07/11/18 18:35: WBC 19.6 H, Hgb 14.3, Hct 42.6, Plt Count 351 07/11/18 18:35: Sodium 133 L, Potassium 4.0, BUN 9, Creatinine 0.94, Glucose 99 , Total Bilirubin 0.7, AST 36, ALT 72, Alkaline Phosphatase 203 H, Lipase 70 L Medications List Reviewed: Yes Assessment And Plan - Current Problems (Diagnosis) (1) UTI (urinary tract infection) Onset Date: 12/28/15 Current Visit: No Status: Chronic Plan: UTI most likely secondary to frequent catheterization. -past medical history of multi-drug resistant bacteria -currently on IV vancomycin and Levaquin will continue at this time -urine cultures are pending at this time Qualifiers: Urinary tract infection type: acute cystitis Hematuria presence: without hematuria Qualified Code(s): N30.00 - Acute cystitis without hematuria (2) HTN (hypertension) Onset Date: 04/22/17 Current Visit: No Status: Chronic Qualifiers: Hypertension type: essential hypertension (3) History of paraplegia Current Visit: No Status: Chronic (4) Tobacco abuse Onset Date: 06/27/17 Current Visit: No Status: Chronic - Plan Pending clinical improvement at this time. Pending urine culture. Will change antibiotics appropriate to the sensitivity and growth. Discharge Plan: Home Plan to discharge in: 48 Hours - Code Status/Comfort Care Code Status Assessed: Yes Critical Care: No
[2018-07-12] MEDS: Levofloxacin500mg IV 500 MG/100 ML BAG IV SCH (21:02)
--- NOTE | 2018-07-12 21:21 | P.HP ---
Certification for Inpatient Patient admitted to: Observation With expected LOS: <2 Midnights Patient will require the following post-hospital care: None Practitioner: I am a practitioner with admitting privileges, knowledge of patient current condition, hospital course, and medical plan of care. Services: Services provided to patient in accordance with Admission requirements found in Title 42 Section 412.3 of the Code of Federal Regulations Patient History Date of Service: 07/11/18 Reason for admission: [id number] resistant History of Present Illness: patient is a 33-year-old gentleman with a history of paraplegia. He has been having fever, shakes, and chills. He came into the hospital as he has had repeated the UTIs. He felt like that was going on with him. It is in the emergency room his workup did confirm the urinary tract infection. He has had multiple admissions for multi-drug resistant UTI. He will be started on IV antibiotics and will wait for his culture results. Allergies No Known Allergies Allergy (Verified 04/19/17 23:19) Home Medications: NK [No Home Meds] 07/12/18 - Past Medical/Surgical History Has patient received pneumonia vaccine in the past: No Diabetic: No -: Chronic recurrent UTI -: Paraplegia to the lower extremity -: Previous work related injury causing paraplegia -: Tobacco abuse -: T12 fx surgery -: IVC Filter(spine) Psychosocial/ Personal History: He is single. Has no children, he currently lives by himself. - Social History Smoking Status: Current every day smoker Alcohol use: No CD- Drugs: No Caffeine use: No Place of Residence: Home Review of Systems 10-point ROS is otherwise unremarkable Physical Examination - Vital Signs Temperature: 97.6 F Blood Pressure: 116/68 Pulse: 89 Respirations: 22 Pulse Ox (%): 98 - Physical Exam General: Alert, In no apparent distress, Oriented x3 HEENT: Atraumatic, PERRLA, Mucous membr. moist/pink, EOMI, Sclerae nonicteric Neck: Supple, 2+ carotid pulse no bruit, No LAD, Without JVD or thyroid abnormality Respiratory: Clear to auscultation bilaterally, Normal air movement Cardiovascular: Regular rate/rhythm, Normal S1 S2 Gastrointestinal: Normal bowel sounds, Soft and benign, Non-distended, No tenderness Musculoskeletal: No clubbing, No swelling, No tenderness Integumentary: No rashes Neurological: Normal gait, Normal speech, Normal strength at 5/5 x4 extr, Normal tone, Normal affect Lymphatics: No axilla or inguinal lymphadenopathy Assessment & Plan - Problems (Diagnosis) (1) Bacteremia Onset Date: 04/22/17 Current Visit: No Status: Acute (2) Fever Onset Date: 12/28/15 Current Visit: No Status: Acute (3) Leukocytosis Onset Date: 12/28/15 Current Visit: No Status: Acute (4) Sepsis Onset Date: 04/22/17 Current Visit: No Status: Acute Qualifiers: (5) UTI (urinary tract infection) Onset Date: 02/17/16 Current Visit: No Status: Acute Qualifiers: Urinary tract infection type: catheter-associated UTI Indwelling urinary catheter type: unspecified Encounter type: subsequent encounter (6) HTN (hypertension) Onset Date: 04/22/17 Current Visit: No Status: Chronic Qualifiers: Hypertension type: essential hypertension (7) Obesity Onset Date: 06/27/17 Current Visit: No Status: Chronic - Plan Plan: 1. IV antibiotics 2. IV fluids 3. Monitor vitals closely 4. Await urine culture results 5. Blood cultures pending 6. Monitor electrolytes and labs 7. GI and DVT prophylaxis Discharge Plan: Home Plan to discharge in: Greater than 2 days - Advance Directives Does patient have a Living Will: No Does patient have a Durable POA for Healthcare: No - Code Status/Comfort Care Code Status Assessed: Yes Code Status: Full Code Critical Care: No Time Spent Managing PTS Care (In Minutes): 55
[2018-07-12] MEDS: ALPRAZOLAM 0.25 MG TABLET PO PRN (22:10)
[2018-07-13 06:45] LABS: BUN Blood Urea Nitrogen 6 mg/dL (7-18); Bicarbonate 23 mmol/L (21-32); Glucose Level 95 mg/dL (74-106); Potassium 3.7 mmol/L (3.5-5.1); Sodium Level 139 mmol/L (136-145)
[2018-07-13] MEDS: ENOXAPARIN 40 MG/0.4 ML SQ SCH (08:54)
[2018-07-13] MEDS: MORPHINE 4 MG/ML SYR IV PRN ×2 (08:57→21:43)
[2018-07-13] MEDS ORDERED: POTASSIUM 25 MEQ EFFERV TAB PO ONE (09:00)
[2018-07-13] MEDS: VANCOMYCIN 1.75 GM in NA CHLORIDE 0.9% 500 ML IVPB SCH (10:22)
--- NOTE | 2018-07-13 12:35 | P.PN ---
Subjective Date of Service: 07/13/18 Chief Complaint: [id number] resistant Patient seen and examined at bedside with RN. Chart reviewed. Case discussed with patient at bedside. This morning no complaints to offer. Review of Systems 10-point ROS is otherwise unremarkable Physical Examination - Vital Signs Temperature: 97.5 F Blood Pressure: 125/71 Pulse: 84 Respirations: 16 Pulse Ox (%): 96 - Physical Exam General: Alert, In no apparent distress HEENT: Atraumatic, PERRLA, EOMI Neck: Supple, JVD not distended Respiratory: Clear to auscultation bilaterally, Normal air movement Cardiovascular: Regular rate/rhythm, Normal S1 S2 Gastrointestinal: Normal bowel sounds, No tenderness Musculoskeletal: Other (BL parapelgia ) Integumentary: No rashes Neurological: Normal speech, Normal tone, Normal affect Lymphatics: No axilla or inguinal lymphadenopathy - Studies Microbiology Data (last 24 hrs): 07/11/18 19:31 Clean Catch Urine [place] Count - Final BETWEEN 10,000 & 100,000 CFU/ML 07/11/18 19:31 Clean Catch Urine - Final MIXED MELANIA. Medications List Reviewed: Yes Assessment And Plan - Current Problems (Diagnosis) (1) UTI (urinary tract infection) Onset Date: 12/28/15 Current Visit: No Status: Chronic Plan: UTI most likely secondary to frequent catheterization. -past medical history of multi-drug resistant bacteria -currently on IV vancomycin and Levaquin will continue at this time -urine cultures with MIxed Melania. Will Repeat the Urine Culture Qualifiers: Urinary tract infection type: acute cystitis Hematuria presence: without hematuria Qualified Code(s): N30.00 - Acute cystitis without hematuria (2) HTN (hypertension) Onset Date: 04/22/17 Current Visit: No Status: Chronic Qualifiers: Hypertension type: essential hypertension (3) History of paraplegia Current Visit: No Status: Chronic (4) Tobacco abuse Onset Date: 06/27/17 Current Visit: No Status: Chronic - Plan Pending clinical improvement at this time. Pending urine culture. Will change antibiotics appropriate to the sensitivity and growth. Discharge Plan: Home Plan to discharge in: 48 Hours - Code Status/Comfort Care Code Status Assessed: Yes Critical Care: No
[2018-07-13] MEDS: NA CHLORIDE 0.9% 1,000 ML IV SCH (14:00)
[2018-07-13 20:59] VITALS: O2SAT 99
[2018-07-13] MEDS: Levofloxacin500mg IV 500 MG/100 ML BAG IV SCH (21:43)
[2018-07-13] MEDS: ALPRAZOLAM 0.25 MG TABLET PO PRN (21:43)
[2018-07-14] MEDS: VANCOMYCIN 1.75 GM in NA CHLORIDE 0.9% 500 ML IVPB SCH ×3 (00:21→23:39)
[2018-07-14] MEDS: NA CHLORIDE 0.9% 1,000 ML IV SCH ×2 (03:20→18:24)
[2018-07-14 07:10] LABS: BUN Blood Urea Nitrogen 6 mg/dL (7-18); Bicarbonate 26 mmol/L (21-32); Glucose Level 102 mg/dL (74-106); Sodium Level 141 mmol/L (136-145)
[2018-07-14] MEDS: ENOXAPARIN 40 MG/0.4 ML SQ SCH (08:57)
[2018-07-14 10:09] LABS: Absolute Lymphocytes (CBC) 1.8 K/uL (0.7-4.9); Absolute Monocytes 0.5 K/uL (0.1-1.3); Absolute Neutrophil 6.2 K/uL (1.8-8.0); Basophils % 0.4 % (0-1.3); Eosinophils % 3.3 % (0-4.4); Hematocrit 37.8 % (39.6-49.0); Lymphocytes % 20.1 % (15.3-44.8); MPV 7.1 fL (7.6-11.3); Monocytes % 6.1 % (3.3-12.3); RBC Red Blood Cell Count 4.25 M/uL (4.33-5.43)
[2018-07-14] MEDS: MORPHINE 4 MG/ML SYR IV PRN ×2 (13:55→20:34)
--- NOTE | 2018-07-14 14:47 | P.PN ---
Subjective Date of Service: 07/14/18 Chief Complaint: IGD-[id number]-nlxj resistant Patient seen and examined at bedside with RN. Chart reviewed. Case discussed with patient at bedside. This morning no complaints to offer. Review of Systems 10-point ROS is otherwise unremarkable Physical Examination - Vital Signs Temperature: 97.7 F Blood Pressure: 123/71 Pulse: 94 Respirations: 16 Pulse Ox (%): 100 - Physical Exam General: Alert, In no apparent distress HEENT: Atraumatic, PERRLA, EOMI Neck: Supple, JVD not distended Respiratory: Clear to auscultation bilaterally, Normal air movement Cardiovascular: Regular rate/rhythm, Normal S1 S2 Gastrointestinal: Normal bowel sounds, No tenderness Musculoskeletal: Other (Paraplegic) Integumentary: No rashes Neurological: Normal speech, Normal tone, Normal affect Lymphatics: No axilla or inguinal lymphadenopathy - Studies Medications List Reviewed: Yes Assessment And Plan - Current Problems (Diagnosis) (1) UTI (urinary tract infection) Onset Date: 12/28/15 Current Visit: No Status: Chronic Plan: UTI most likely secondary to frequent catheterization. -past medical history of multi-drug resistant bacteria -currently on IV vancomycin and Levaquin will continue at this time -urine cultures with MIxed Melania. -Repeated Urine Culture pending Qualifiers: Urinary tract infection type: acute cystitis Hematuria presence: without hematuria Qualified Code(s): N30.00 - Acute cystitis without hematuria (2) HTN (hypertension) Onset Date: 04/22/17 Current Visit: No Status: Chronic Qualifiers: Hypertension type: essential hypertension (3) History of paraplegia Current Visit: No Status: Chronic (4) Tobacco abuse Onset Date: 06/27/17 Current Visit: No Status: Chronic - Plan Pending clinical improvement at this time. Pending urine culture. Will change antibiotics appropriate to the sensitivity and growth. Discharge Plan: Home Plan to discharge in: 48 Hours - Code Status/Comfort Care Code Status Assessed: Yes Critical Care: No
[2018-07-14] MEDS: Levofloxacin500mg IV 500 MG/100 ML BAG IV SCH (20:34)
[2018-07-15] MEDS: NA CHLORIDE 0.9% 1,000 ML IV SCH (05:39)
[2018-07-15] MEDS: ENOXAPARIN 40 MG/0.4 ML SQ SCH (08:46)
[2018-07-15] MEDS ORDERED: VANCOMYCIN 2 GM in NA CHLORIDE 0.9% 500 ML IVPB SCH (10:00)
[2018-07-15 13:12] VITALS: BP 133/74; TEMP 97.7
--- NOTE | 2018-07-15 14:24 | P.DS ---
Admission Date: 07/11/18 Discharge Date: 07/15/18 Disposition: ROUTINE DISCHARGE Discharge Condition: GOOD Reason for Admission: [id number] resistant - Problems (1) UTI (urinary tract infection) Onset Date: 12/28/15 Current Visit: No Status: Chronic Qualifiers: Urinary tract infection type: acute cystitis Hematuria presence: without hematuria Qualified Code(s): N30.00 - Acute cystitis without hematuria (2) HTN (hypertension) Onset Date: 04/22/17 Current Visit: No Status: Chronic Qualifiers: Hypertension type: essential hypertension (3) History of paraplegia Current Visit: No Status: Chronic (4) Tobacco abuse Onset Date: 06/27/17 Current Visit: No Status: Chronic Brief History of Present Illness: patient is a 33-year-old gentleman with a history of paraplegia. He has been having fever, shakes, and chills. He came into the hospital as he has had repeated the UTIs. He felt like that was going on with him. It is in the emergency room his workup did confirm the urinary tract infection. He has had multiple admissions for multi-drug resistant UTI. He will be started on IV antibiotics and will wait for his culture results. Hospital Course: Overall during the hospital stay patient remained stable Patient was initially admitted to the hospital for elevated white count along with UA consistent with UTI. Given the history of multidrug resistant UTI patient was started on IV vancomycin. Urine cultures were collected. Initial cultures were contaminated and his repeat urine culture was done at that time no growth was noted on the repeat urine culture. Patient however given the extensive history of multi-drug resistant UTI was then discharged home on Augmentin and Macrobid to cover for staph aureus along with E. coli that patient grew before in his urine. Patient had marked improvement in his symptoms and thus was discharged home under stable condition. Vital Signs/Physical Exam: Temp Pulse Resp BP Pulse Ox 97.7 F 78 16 133/74 98 07/15/18 12:00 07/15/18 12:07/15/18 12:07/15/18 12:07/15/18 12:00 General: Alert, In no apparent distress HEENT: Atraumatic, PERRLA, EOMI Neck: Supple, JVD not distended Respiratory: Clear to auscultation bilaterally, Normal air movement Cardiovascular: Regular rate/rhythm, Normal S1 S2 Gastrointestinal: Normal bowel sounds, No tenderness Musculoskeletal: No tenderness Integumentary: No rashes Neurological: Normal speech, Normal tone, Normal affect Lymphatics: No axilla or inguinal lymphadenopathy Laboratory Data at Discharge: WBC 8.9 K/uL (4.3-10.9) D 07/14/18 09:48 Hgb 12.8 g/dL (13.6-17.9) L 07/14/18 09:48 Hct 37.8 % (39.6-49.0) L 07/14/18 09:48 Plt Count 373 K/uL (152-406) 07/14/18 09:48 Sodium 141 mmol/L (136-145) 07/14/18 06:39 Potassium 4.0 mmol/L (3.5-5.1) 07/14/18 06:39 BUN 6 mg/dL (7-18) L 07/14/18 06:39 Creatinine 0.50 mg/dL (0.55-1.3) L 07/14/18 06:39 Glucose 102 mg/dL (74-106) 07/14/18 06:39 Phosphorus 2.5 mg/dL (2.5-4.9) 07/12/18 04:57 Magnesium 2.3 mg/dL (1.8-2.4) 07/12/18 04:57 Total Bilirubin 0.9 mg/dL (0.2-1.0) 07/12/18 04:57 AST 21 U/L (15-37) 07/12/18 04:57 ALT 51 U/L (12-78) 07/12/18 04:57 Alkaline Phosphatase 163 U/L (45-117) H 07/12/18 04:57 Lipase 70 U/L (73-393) L 07/11/18 18:35 Home Medications: Amoxicillin/Potassium Clav [Augmentin 875-125 Tablet] 1 each PO BID #28 tablet 07/15/18 Nitrofuran Macro [Macrobid*] 100 mg PO BID #28 cap 07/15/18 New Medications: Amoxicillin/Potassium Clav [Augmentin 875-125 Tablet] 1 each PO BID #28 tablet Nitrofuran Macro [Macrobid*] 100 mg PO BID #28 cap Patient Discharge Instructions: Please f.u with PCP and Urology in 1 to 2 week post discharge. You initial Urine Culture was contaminated and Repeat Culture was negative. However given the History of past UTI. You will need to take. Augmentin 1 pill BID for 14 days. Macrobid 1pill BID for 14 days Diet: Regular Activity: Ad matthew Followup: Blanquita Lilly MD [ACTIVE - CAN ADMIT] - 1 Week
== END 2018-07-15 15:30 | disposition home or self-care (01) ==
LOC: ER 15:46 → ERHOLD 21:47 → 4TH 22:32
PROVIDERS: ADMIT Hospitalist; ATTEND Hospitalist
DX: N30.00 Acute cystitis without hematuria (principal); I10 Essential (primary) hypertension; F17.210 Nicotine dependence, cigarettes, uncomplicated; G82.20 Paraplegia, unspecified; E66.9 Obesity, unspecified; Z68.36 Body mass index [BMI] 36.0-36.9, adult
CPT/HCPCS: 36415; 74176; 76377; 80048; 80053; 80076; 80202; 81003; 81015; 83605; 83690; 83735; 84100; 84145; 85025; 87040; 87086; 87088; 96361; 96365; 96375; 99285; G0378; J1650; J2405; J3010; J7030

== ENCOUNTER 2018-08-12 15:43 | Emergency (ER) | payer OTHER ==
--- NOTE | 2018-08-12 16:37 | RAD REPORT ---
EXAM DESCRIPTION: US - Scrotum Testicles - 08/12/2018 4:29 pm CLINICAL HISTORY: redness/swelling COMPARISON: Scrotum Testicles dated 07/11/2016 FINDINGS: The right testicle 4.3 x 2.3 x 1.8 cm. No intratesticular masses or evidence of testicular torsion. Microlithiasis noted. The left testicle 5.1 x 3.7 x 3.0 cm. No intratesticular masses or evidence of testicular torsion. Mi crolithiasis noted. Left epididymis is increased in size with elevated Doppler blood flow demonstrated. Right epididymiti s is normal. Moderate chronic left hydrocele suspected. IMPRESSION: Left epididymitis is suspected. No intratesticular mass or evidence of testicular torsio n. Bilateral testicular microlithiasis.
--- NOTE | 2018-08-12 16:50 | ER ---
Nurse's Notes [facility] Name: Aidan East Age: 33 yrs Sex: Male : 1985 Arrival Date: 08/12/2018 Time: 15:46 Bed 25 Private MD: Diagnosis: Epididymitis Presentation: 08/12 15:53 Presenting complaint: Patient states: Left testicle swelling and redness for 2 days. aj Patient reports frequent UTI's. Transition of care: patient was not received from another setting of care. Onset of symptoms was August 10, 2018. Risk Assessment: Do you want to hurt yourself or someone else? Patient reports no desire to harm self or others. Initial Sepsis Screen: Does the patient meet any 2 criteria? No. Patient's initial sepsis screen is negative. Does the patient have a suspected source of infection? No. Patient's initial sepsis screen is negative. Care prior to arrival: None. 15:53 Method Of Arrival: Wheelchair 15:53 Acuity: SPIKE 3 aj Triage Assessment: 15:54 General: Appears in no apparent distress. comfortable, Behavior is calm, cooperative, aj appropriate for age. Pain: Denies pain. Neuro: Level of Consciousness is awake, alert, obeys commands, Oriented to person, place, time, situation, Appropriate for age. Respiratory: Airway is patent Respiratory effort is even, unlabored, Respiratory pattern is regular, symmetrical. Derm: Skin is intact, is healthy with good turgor, Skin is pink, warm \T\ dry. normal. Historical: - Allergies: 15:54 No Known Allergies; aj - Home Meds: 15:54 None [Active]; aj - PMHx: 15:54 paraplegic; UTI; aj - PSHx: 15:54 T12 vertebrae; aj - Immunization history:: Adult Immunizations up to date. - Social history:: Smoking status: Patient/guardian denies using tobacco. - Ebola Screening: : Patient negative for fever greater than or equal to 101.5 degrees Fahrenheit, and additional compatible Ebola Virus Disease symptoms Patient denies exposure to infectious person Patient denies travel to an Ebola-affected area in the 21 days before illness onset No symptoms or risks identified at this time. - Family history:: not pertinent. - Hospitalizations: : No recent hospitalization is reported. Screenin:30 Abuse screen: Denies threats or abuse. Denies injuries from another. Nutritional rv screening: No deficits noted. Tuberculosis screening: No symptoms or risk factors identified. Fall Risk None identified. Assessment: 16:27 General: Appears in no apparent distress. comfortable, Behavior is calm, cooperative. rv Pain: Complains of pain in pelvis. Pain: Pain currently is 5 out of 10 on a pain scale. Neuro: Level of Consciousness is awake, alert, obeys commands, Oriented to person, place, time, situation. Cardiovascular: Capillary refill < 3 seconds. Respiratory: Airway is patent. GI: No signs and/or symptoms were reported involving the gastrointestinal system. : Reports Scrotal pain: sudden onset. EENT: No signs and/or symptoms were reported regarding the EENT system. Derm: Skin is intact. Musculoskeletal: No signs and/or symptoms reported regarding the musculoskeletal system. Vital Signs: 15:54 BP 148 / 78; Pulse 118; Resp 20; Temp 98.0; Pulse Ox 98% on R/A; Weight 117.93 kg; aj Height 6 ft. 1 in. (185.42 cm); 16:30 BP 156 / 92; Pulse 102; Resp 18; Pulse Ox 97% on R/A; rv 15:54 Body Mass Index 34.30 (117.93 kg, 185.42 cm) aj ED Course: 15:46 Patient arrived in ED. rg4 15:54 Triage completed. aj 15:54 Arm band placed on right wrist. Patient placed in an exam room. aj 15:56 Manuel Jackson MD is Attending Physician. rn 16:25 Ultrasound completed. Patient tolerated well. cy 16:30 US Scrotum Testicles In Process Unspecified. EDMS 16:30 Patient has correct armband on for positive identification. Bed in low position. Call rv light in reach. Side rails up X2. Pulse ox on. NIBP on. 16:49 Blanquita Lilly MD is Referral Physician. rn 17:02 No provider procedures requiring assistance completed. Patient did not have IV access rv during this emergency room visit. Administered Medications: 17:02 Drug: LevaQUIN 500 mg Route: PO; rv 17:02 Follow up: Response: Medication administered at discharge. rv Outcome: 16:49 Discharge ordered by . rn 17:02 Discharged to home via wheelchair. rv 17:02 Condition: good 17:02 Discharge instructions given to patient, Instructed on discharge instructions, follow up and referral plans. medication usage, Demonstrated understanding of instructions, follow-up care, medications, Prescriptions given X 2. 17:03 Patient left the ED. rv Signatures: Dispatcher [employer] EDAna Paula Damico, RN RN Manuel Ladd MD MD rn Garcia, Rubi rg4 Zhane Mcmullen Ronaldo, RN RN rv
--- NOTE | 2018-08-12 16:50 | EDPHYS ---
Physician Documentation [facility] Name: Aidan East Age: 33 yrs Sex: Male : 1985 Arrival Date: 08/12/2018 Time: 15:46 Bed 25 Private MD: ED Physician Manuel Jackson HPI: 08/12 16:10 This 33 yrs old Male presents to ER via Wheelchair with complaints of rn Testicular Swelling. 16:10 The patient presents with swelling, tenderness. Onset: The symptoms/episode rn began/occurred 3 day(s) ago. Modifying factors: The symptoms are alleviated by nothing, the symptoms are aggravated by pressure. Severity of symptoms: At their worst the symptoms were mild, in the emergency department the symptoms are unchanged. The patient has not experienced similar symptoms in the past. Reports swelling and pain to left scrotum/testicle, no fever, reports paraplegic and gets frequent UTI. No trauma. . Historical: - Allergies: 15:54 No Known Allergies; aj - Home Meds: 15:54 None [Active]; aj - PMHx: 15:54 paraplegic; UTI; - PSHx: 15:54 T12 vertebrae; aj - Immunization history:: Adult Immunizations up to date. - Social history:: Smoking status: Patient/guardian denies using tobacco. - Ebola Screening: : Patient negative for fever greater than or equal to 101.5 degrees Fahrenheit, and additional compatible Ebola Virus Disease symptoms Patient denies exposure to infectious person Patient denies travel to an Ebola-affected area in the 21 days before illness onset No symptoms or risks identified at this time. - Family history:: not pertinent. - Hospitalizations: : No recent hospitalization is reported. ROS: 16:10 Constitutional: Negative for fever, chills, and weight loss, Eyes: Negative for injury, rn pain, redness, and discharge, Cardiovascular: Negative for chest pain, palpitations, and edema, Respiratory: Negative for shortness of breath, cough, wheezing, and pleuritic chest pain, Abdomen/GI: Negative for abdominal pain, nausea, vomiting, diarrhea, and constipation, : + left scrotal swelling and redness MS/Extremity: Negative for injury and deformity, Skin: Negative for injury, rash, and discoloration, Neuro: Negative for headache, weakness, numbness, tingling, and seizure. Exam: 16:10 Constitutional: This is a well developed, well nourished patient who is awake, alert, rn and in no acute distress. Male : + left hemiscrotum with swelling and firmness, no fluctuance Vital Signs: 15:54 BP 148 / 78; Pulse 118; Resp 20; Temp 98.0; Pulse Ox 98% on R/A; Weight 117.93 kg; aj Height 6 ft. 1 in. (185.42 cm); 16:30 BP 156 / 92; Pulse 102; Resp 18; Pulse Ox 97% on R/A; rv 15:54 Body Mass Index 34.30 (117.93 kg, 185.42 cm) aj MDM: 15:56 Patient medically screened. rn 16:48 Differential diagnosis: UTI, urethritis. Data reviewed: vital signs, nurses notes, environmental laboratory technician test result(s), radiologic studies, ultrasound, and as a result, I will discharge patient. Counseling: I had a detailed discussion with the patient and/or guardian regarding: the historical points, exam findings, and any diagnostic results supporting the discharge/admit diagnosis, lab results, radiology results, the need for outpatient follow up, to return to the emergency department if symptoms worsen or persist or if there are any questions or concerns that arise at home. Special discussion: I discussed with the patient/guardian in detail that at this point there is no indication for admission to the hospital. It is understood, however, that if the symptoms persist or worsen the patient needs to return immediately for re-evaluation. 08/12 15:58 Order name: US Scrotum Testicles; Complete Time: 16:45 rn Administered Medications: 17:02 Drug: LevaQUIN 500 mg Route: PO; rv 17:02 Follow up: Response: Medication administered at discharge. rv Disposition: 08/12/18 16:49 Discharged to Home. Impression: Epididymitis. - Condition is Stable. - Discharge Instructions: Epididymitis. - Prescriptions for Levaquin 500 mg Oral Tablet - take 1 tablet by ORAL route once daily for 10 days; 10 tablet. Tylenol- Codeine #3 300-30 mg Oral Tablet - take 1 tablet by ORAL route every 6 hours As needed; 15 tablet. - Medication Reconciliation Form, Thank You Letter, Antibiotic Education, Prescription Opioid Use form. - Follow up: Blanquita Lilly MD; When: As needed; Reason: Recheck today's complaints, Re-evaluation by your physician. - Problem is new. - Symptoms have improved. Signatures: Dispatcher [employer] Ana Paula Castano RN Manuel Jernigan MD MD rn Vicente, Ronaldo, RN RN rv Corrections: (The following items were deleted from the chart) 17:03 16:49 08/12/2018 16:49 Discharged to Home. Impression: Epididymitis. Condition is rv Stable. Forms are Medication Reconciliation Form, Thank You Letter, Antibiotic Education, Prescription Opioid Use. Follow up: Blanquita Lilly; When: As needed; Reason: Recheck today's complaints, Re-evaluation by your physician. Problem is new. Symptoms have improved. rn
[2018-08-12] MEDS ORDERED: levoFLOXacin 500 MG TAB ONE (17:09)
[2018-08-12 18:29] VITALS: TEMP 98
[2018-08-12 18:30] VITALS: BP 156/92; O2SAT 97
== END 2018-08-12 17:03 | disposition home or self-care (01) ==
LOC: ER 15:43
DX: N45.1 Epididymitis (principal); G82.20 Paraplegia, unspecified
CPT/HCPCS: 76870; 99284

== ENCOUNTER 2018-09-28 12:11 | Observation (INO) | payer OTHER ==
[2018-09-28 13:47] LABS: Absolute Lymphocytes (CBC) 0.9 K/uL (0.7-4.9); Absolute Monocytes 1.2 K/uL (0.1-1.3); Absolute Neutrophil 19.3 K/uL (1.8-8.0); Basophils % 0.1 % (0-1.3); Eosinophils % 0.1 % (0-4.4); Hematocrit 43.1 % (39.6-49.0); Lymphocytes % 4.2 % (15.3-44.8); MPV 7.9 fL (7.6-11.3); Monocytes % 5.6 % (3.3-12.3); RBC Red Blood Cell Count 4.88 M/uL (4.33-5.43)
[2018-09-28] MEDS ORDERED: ONDANSETRON 4 MG/2 ML VIAL ONE (13:51)
[2018-09-28] MEDS ORDERED: MORPHINE 2 MG/ML SYR ONE (13:51)
[2018-09-28] MEDS ORDERED: NA CHLORIDE 0.9% 1,000 ML ONE ×2 (13:51→15:01)
[2018-09-28 13:54] LABS: BUN Blood Urea Nitrogen 10 mg/dL (7-18); Bicarbonate 23 mmol/L (21-32); Glucose Level 105 mg/dL (74-106); Potassium 3.5 mmol/L (3.5-5.1); Sodium Level 138 mmol/L (136-145)
[2018-09-28 14:29] LABS: Blood Morphology Comment NOT SEEN (NOT SEEN); Platelet Estimate ADEQ
--- NOTE | 2018-09-28 14:54 | ER ---
Nurse's Notes [facility] Name: Aidan East Age: 33 yrs Sex: Male : 1985 Arrival Date: 09/28/2018 Time: 12:13 Bed 23 Private MD: Diagnosis: Urinary tract infection, site not specified;Elevated white blood cell count;Dehydration Presentation: 09/28 12:16 Presenting complaint: Patient states: i have condom cath, i woke today with chills and hj nausea and vomiting; i feel weak too; i think i have UTI;. Transition of care: patient was not received from another setting of care. Onset of symptoms was September 28, 2018. Risk Assessment: Do you want to hurt yourself or someone else? Patient reports no desire to harm self or others. Initial Sepsis Screen: Does the patient meet any 2 criteria? RR > 20 per min. HR > 90 bpm. Yes Does the patient have a suspected source of infection? Yes: Dysuria/Frequency/Urgency/UTI. Care prior to arrival: None. 12:16 Method Of Arrival: Ambulatory 12:16 Acuity: SPIKE 3 hj Triage Assessment: 12:18 General: Appears in no apparent distress. uncomfortable, Behavior is calm, cooperative, hj appropriate for age. Pain: Complains of pain in back and pelvis. GI: Reports nausea. Historical: - Allergies: 12:18 No Known Allergies; hj - Home Meds: 12:18 None [Active]; hj - PMHx: 12:18 paraplegic; UTI; hj - PSHx: 12:18 T12 vertebrae; hj - Immunization history:: Adult Immunizations up to date. - Social history:: Smoking status: Patient uses tobacco products, Patient uses alcohol. - Ebola Screening: : Patient negative for fever greater than or equal to 101.5 degrees Fahrenheit, and additional compatible Ebola Virus Disease symptoms Patient denies exposure to infectious person Patient denies travel to an Ebola-affected area in the 21 days before illness onset. Screenin:18 Abuse screen: Denies threats or abuse. Denies injuries from another. Nutritional hj screening: No deficits noted. Tuberculosis screening: No symptoms or risk factors identified. Fall Risk None identified. Assessment: 12:18 GI: Abdomen is non-distended, obese. hj 12:59 General: Appears in no apparent distress. comfortable, Behavior is calm, cooperative, ca1 appropriate for age. Pain: Complains of pain in left low back Pain does not radiate. Pain currently is 7 out of 10 on a pain scale. Quality of pain is described as throbbing, Pain began 4 hours ago. Is continuous. Neuro: Level of Consciousness is awake, alert, obeys commands, Oriented to person, place, time, situation. Cardiovascular: Heart tones S1 S2 Capillary refill < 3 seconds Patient's skin is warm and dry. Respiratory: Airway is patent Respiratory effort is even, unlabored, Breath sounds are clear bilaterally. GI: Abdomen is round non-distended, Bowel sounds present X 4 quads. Abd is soft X 4 quads Abdomen is tender to palpation in left lower quadrant. : condom cath Urine is cloudy. EENT: No deficits noted. No signs and/or symptoms were reported regarding the EENT system. Derm: Skin is intact, is healthy with good turgor, Skin is pink, warm \T\ dry. Musculoskeletal: Capillary refill < 3 seconds, Range of motion: limited in waist down. 13:57 Reassessment: CRITICAL LAB RESULTS: 21.5 WBC reported to LANCE Page and JANUARY Cruz. tw2 13:59 Reassessment: Critical LAB WBC 21.5. Notified provider. ca1 14:30 Reassessment: Patient appears in no apparent distress at this time. Patient and/or ca1 family updated on plan of care and expected duration. Pain level reassessed. Patient is alert, oriented x 3, equal unlabored respirations, skin warm/dry/pink. 14:50 Reassessment: Dr. Moya at bedside discussing plan of care. ca1 15:00 Reassessment: Pt to CT scan. ca1 15:20 Reassessment: Patient appears in no apparent distress at this time. Patient and/or ca1 family updated on plan of care and expected duration. Pain level reassessed. Patient is alert, oriented x 3, equal unlabored respirations, skin warm/dry/pink. Awaiting room assignment. 16:01 Reassessment: Patient appears in no apparent distress at this time. Patient is alert, ca1 oriented x 3, equal unlabored respirations, skin warm/dry/pink. 16:04 Reassessment: Called report at 4th floor. RN will call back as soon as available. She ca1 is still receiving report for another pt. 17:13 Reassessment: Patient appears in no apparent distress at this time. Patient is alert, ca1 oriented x 3, equal unlabored respirations, skin warm/dry/pink. Pt stable Ox4. Voided through straight cath. Patient states feeling better. Vital Signs: 12:19 BP 114 / 60; Pulse 131; Resp 18; Temp 99.6(O); Pulse Ox 98% on R/A; Weight 117.93 kg; hj Height 6 ft. 2 in. (187.96 cm); Pain 8/10; 12:59 BP 122 / 87; Pulse 116; Resp 19; Pulse Ox 97% on R/A; ca1 13:30 BP 105 / 76; Pulse 112; Resp 19; Pulse Ox 98% on R/A; ca1 14:00 BP 106 / 67; Pulse 108; Resp 19; Pulse Ox 96% on R/A; ca1 15:20 BP 133 / 87; Pulse 105; Resp 19; Pulse Ox 98% on R/A; ca1 16:01 BP 138 / 87; Pulse 110; Resp 19; Pulse Ox 95% on R/A; ca1 16:55 BP 128 / 85; Pulse 104; Resp 19; Pulse Ox 99% on R/A; ca1 17:11 Temp 99.2(O); ca1 12:19 Body Mass Index 33.38 (117.93 kg, 187.96 cm) ED Course: 12:13 Patient arrived in ED. mr 12:17 Triage completed. hj 12:18 Arm band placed on right wrist. hj 12:19 Patient has correct armband on for positive identification. Bed in low position. Call light in reach. Side rails up X 1. 12:50 Kaylee Wild, LANCE is Primary Nurse. ca1 12:52 Christiana Ellison FNP-C is PHCP. kb 12:52 Yobany Lord MD is Attending Physician. kb 12:59 Pulse ox on. NIBP on. ca1 13:23 Initial lab(s) drawn, by oh, sent to lab. First set of blood cultures drawn by oh. lt1 13:32 Inserted saline lock: 22 gauge in right antecubital area, using aseptic technique. lt1 13:55 Second set of blood cultures drawn by oh. lt1 14:10 Straight cath inserted, using sterile technique, 16 Fr. Specimen obtained. Returned ca1 cherie urine. Patient tolerated well. 14:53 Cody Moya DO is Hospitalizing Provider. kb 15:12 CT Abd/Pelvis - W/Contrast In Process Unspecified. EDMS 15:13 CT completed. Patient tolerated procedure well. Patient moved back from CT. kw1 15:20 Diet: Patient given water. Tolerated well. ca1 16:03 No provider procedures requiring assistance completed. Patient admitted, IV remains in ca1 place. Administered Medications: 13:42 Drug: NS 0.9% 1000 ml Route: IV; Rate: 1000 ml; Site: right antecubital; ca1 17:15 Follow up: IV Status: Completed infusion ca1 13:44 Drug: Zofran 4 mg Route: IVP; Site: right antecubital; ca1 15:18 Follow up: Response: No adverse reaction; Nausea is decreased ca1 13:46 Drug: morphine 2 mg Route: IVP; Site: right antecubital; ca1 15:18 Follow up: Response: No adverse reaction; Pain is decreased ca1 14:40 Drug: NS 0.9% 1000 ml Route: IV; Rate: 1000 ml; Site: right antecubital; ca1 17:15 Follow up: IV Status: Completed infusion ca1 14:48 Drug: Rocephin 1 grams Route: IV; Rate: calculated rate; Site: right antecubital; ca1 15:17 Follow up: Response: No adverse reaction; IV Status: Completed infusion; IVP per ca1 pharmacy protocol Intake: 16:55 condom cath ca1 Output: 14:10 Urine: 230ml (Straight Cath); Total: 230ml. ca1 16:55 Urine: 650ml (Voided); Total: 880ml. ca1 16:55 condom cath ca1 Outcome: 14:54 Decision to Hospitalize by Provider. kb 17:12 Admitted to Tele accompanied by tech, via stretcher, room 413, with chart, Report ca1 called to Kimmy Marquez RN 17:12 Condition: stable 17:12 Instructed on the need for admit, Demonstrated understanding of instructions. 17:51 Patient left the ED. ca1 Signatures: Dispatcher [employer] EDMS Christiana Ellison, JOSE DEVRIES-Didi Quintana Navjot Gonzalez RN Alyssa Sanchez RN RN 2 Zuleyma Mensah kw1 Kaylee Wild RN RN ca1 Ang, Katie lt1 Corrections: (The following items were deleted from the chart) 12: 12:16 Initial Sepsis Screen: Does the patient meet any 2 criteria? No. Patient's hj initial sepsis screen is negative. Does the patient have a suspected source of infection? No. Patient's initial sepsis screen is negative. 12:16 Acuity: SPIKE 4 hj hj 12:19 Pulse 115bpm; Resp 18bpm; Pulse Ox 98% RA; Temp 99.6F Oral; 117.93 kg; Height 6 hj ft. 2 in.; BMI: 33.3; Pain 8/10; hj 12: 12:19 Pulse 131bpm; Resp 18bpm; Pulse Ox 98% RA; Temp 99.6F Oral; 117.93 kg; Height 6 hj ft. 2 in.; BMI: 33.3; Pain 8/10; hj 12: 12:19 Pulse 131bpm; Resp 18bpm; Pulse Ox 98% RA; Temp 99.6F Oral; 117.93 kg; Height 6 hj ft. 2 in.; BMI: 33.3; Pain 8/10; hj
--- NOTE | 2018-09-28 14:54 | EDPHYS ---
Physician Documentation [facility] Name: Aidan East Age: 33 yrs Sex: Male : 1985 Arrival Date: 09/28/2018 Time: 12:13 Bed 23 Private MD: ED Physician Yobany Lord HPI: 09/28 13:25 This 33 yrs old Male presents to ER via Ambulatory with complaints of Fever, kb Urinary Problem, Vomiting. 13:25 The patient reports fever, not measured (subjective), with an emergency department kb temperature of 99.6 degrees Fahrenheit. Onset: The symptoms/episode began/occurred this morning. Modifying factors: there are no obvious modifying factors. Associated signs and symptoms: Pertinent positives: chills, nausea, vomiting, Pertinent negatives: abdominal pain, altered mental status. Severity of symptoms: At their worst the symptoms were mild in the emergency department the symptoms are unchanged. The patient has experienced similar episodes in the past. The patient has not recently seen a physician. pt reports he has had fever, chills and vomiting this morning. States he believes it is a UTI because this is what normally happens. States he has had urosepsis before so he was trying to catch it before he got septic. . Historical: - Allergies: 12:18 No Known Allergies; hj - Home Meds: 12:18 None [Active]; hj - PMHx: 12:18 paraplegic; UTI; hj - PSHx: 12:18 T12 vertebrae; hj - Immunization history:: Adult Immunizations up to date. - Social history:: Smoking status: Patient uses tobacco products, Patient uses alcohol. - Ebola Screening: : Patient negative for fever greater than or equal to 101.5 degrees Fahrenheit, and additional compatible Ebola Virus Disease symptoms Patient denies exposure to infectious person Patient denies travel to an Ebola-affected area in the 21 days before illness onset. ROS: 13:28 ENT: Negative for injury, pain, and discharge, Neck: Negative for injury, pain, and kb swelling, Cardiovascular: Negative for chest pain, palpitations, and edema, Respiratory: Negative for shortness of breath, cough, wheezing, and pleuritic chest pain, Back: Negative for injury and pain, : Negative for injury, bleeding, discharge, and swelling, MS/Extremity: Negative for injury and deformity, Skin: Negative for injury, rash, and discoloration, Neuro: Negative for headache, weakness, numbness, tingling, and seizure. 13:28 Constitutional: Positive for chills, fever, Negative for body aches, fatigue, malaise, poor PO intake, weight loss. 13:28 Abdomen/GI: Positive for nausea and vomiting, Negative for abdominal pain, diarrhea, constipation, abdominal cramps, abdominal distension, anorexia. Exam: 13:28 Constitutional: This is a well developed, well nourished patient who is awake, alert, kb and in no acute distress. Head/Face: Normocephalic, atraumatic. ENT: Nares patent. No nasal discharge, no septal abnormalities noted. Tympanic membranes are normal and external auditory canals are clear. Oropharynx with no redness, swelling, or masses, exudates, or evidence of obstruction, uvula midline. Mucous membranes moist. Neck: Trachea midline, no thyromegaly or masses palpated, and no cervical lymphadenopathy. Supple, full range of motion without nuchal rigidity, or vertebral point tenderness. No Meningismus. Chest/axilla: Normal chest wall appearance and motion. Nontender with no deformity. No lesions are appreciated. Cardiovascular: Regular rate and rhythm with a normal S1 and S2. No gallops, murmurs, or rubs. Normal PMI, no JVD. No pulse deficits. Respiratory: Lungs have equal breath sounds bilaterally, clear to auscultation and percussion. No rales, rhonchi or wheezes noted. No increased work of breathing, no retractions or nasal flaring. Back: No spinal tenderness. No costovertebral tenderness. Full range of motion. Skin: Warm, dry with normal turgor. Normal color with no rashes, no lesions, and no evidence of cellulitis. MS/ Extremity: Pulses equal, no cyanosis. Neurovascular intact. Full, normal range of motion. 13:28 Abdomen/GI: Inspection: obese Bowel sounds: normal, in all quadrants, Palpation: soft, in all quadrants, mild abdominal tenderness, in the suprapubic area, right lower quadrant and left lower quadrant. 13:29 Neuro: Exam negative for acute changes. kb Vital Signs: 12:19 BP 114 / 60; Pulse 131; Resp 18; Temp 99.6(O); Pulse Ox 98% on R/A; Weight 117.93 kg; hj Height 6 ft. 2 in. (187.96 cm); Pain 8/10; 12:59 BP 122 / 87; Pulse 116; Resp 19; Pulse Ox 97% on R/A; ca1 13:30 BP 105 / 76; Pulse 112; Resp 19; Pulse Ox 98% on R/A; ca1 14:00 BP 106 / 67; Pulse 108; Resp 19; Pulse Ox 96% on R/A; ca1 15:20 BP 133 / 87; Pulse 105; Resp 19; Pulse Ox 98% on R/A; ca1 16:01 BP 138 / 87; Pulse 110; Resp 19; Pulse Ox 95% on R/A; ca1 16:55 BP 128 / 85; Pulse 104; Resp 19; Pulse Ox 99% on R/A; ca1 17:11 Temp 99.2(O); ca1 12:19 Body Mass Index 33.38 (117.93 kg, 187.96 cm) hj MDM: 12:52 Patient medically screened. kb 13:28 Data reviewed: vital signs, nurses notes. Data interpreted: Pulse oximetry: on room air kb is 97 %. Interpretation: normal. 14:49 Counseling: I had a detailed discussion with the patient and/or guardian regarding: the kb historical points, exam findings, and any diagnostic results supporting the discharge/admit diagnosis, lab results, radiology results, the need for further work-up and treatment in the hospital. Physician consultation: Cody Moya DO was contacted at 14:49, regarding admission, to the medical/surgical unit. patient's condition, in the emergency department to see patient at 14:50. 09/28 12:23 Order name: Urine Microscopic Only; Complete Time: 16:25 hj 09/28 12:23 Order name: Urine Culture 09/28 13:05 Order name: CBC with Diff; Complete Time: 14:32 kb 09/28 13:05 Order name: Basic Metabolic Panel; Complete Time: 14:02 kb 09/28 13:05 Order name: Procalcitonin; Complete Time: 14:35 kb 09/28 13:05 Order name: Lactate; Complete Time: 14:02 kb 09/28 13:05 Order name: Blood Culture Adult (2) kb 09/28 13:58 Order name: Manual Differential; Complete Time: 14:32 EDMS 09/28 14:36 Order name: CT Abd/Pelvis - W/Contrast; Complete Time: 15:39 kb 09/28 15:08 Order name: Urine Dipstick--Ancillary (enter results); Complete Time: 16:25 bd 09/28 12:23 Order name: Urine Dipstick-Ancillary (obtain specimen); Complete Time: 14:24 hj 09/28 13:05 Order name: IV Start; Complete Time: 13:28 kb 09/28 14:24 Order name: Straight Cath; Complete Time: 14:24 ca1 Administered Medications: 13:42 Drug: NS 0.9% 1000 ml Route: IV; Rate: 1000 ml; Site: right antecubital; ca1 17:15 Follow up: IV Status: Completed infusion ca1 13:44 Drug: Zofran 4 mg Route: IVP; Site: right antecubital; ca1 15:18 Follow up: Response: No adverse reaction; Nausea is decreased ca1 13:46 Drug: morphine 2 mg Route: IVP; Site: right antecubital; ca1 15:18 Follow up: Response: No adverse reaction; Pain is decreased ca1 14:40 Drug: NS 0.9% 1000 ml Route: IV; Rate: 1000 ml; Site: right antecubital; ca1 17:15 Follow up: IV Status: Completed infusion ca1 14:48 Drug: Rocephin 1 grams Route: IV; Rate: calculated rate; Site: right antecubital; ca1 15:17 Follow up: Response: No adverse reaction; IV Status: Completed infusion; IVP per ca1 pharmacy protocol Disposition: 09/29 07:28 Co-signature as Attending Physician, Yobany Lord MD I agree with the assessment and uyen plan of care. Disposition: 09/28/18 14:54 Hospitalization ordered by Cody Moya for Inpatient Admission. Preliminary diagnosis are Urinary tract infection, site not specified, Elevated white blood cell count, Dehydration. - Bed requested for Telemetry/MedSurg (Inpatient). - Status is Inpatient Admission. ca1 - Condition is Stable. - Problem is new. - Symptoms are unchanged. UTI on Admission? 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 EDAZ EDMS 12: 12:23 Urine Culture ordered. [facility] EDMS 13:29 13:28 Constitutional: This is a well developed, well nourished patient who is awake, kb alert, and in no acute distress. Head/Face: Normocephalic, atraumatic. ENT: Nares patent. No nasal discharge, no septal abnormalities noted. Tympanic membranes are normal and external auditory canals are clear. Oropharynx with no redness, swelling, or masses, exudates, or evidence of obstruction, uvula midline. Mucous membranes moist. Neck: Trachea midline, no thyromegaly or masses palpated, and no cervical lymphadenopathy. Supple, full range of motion without nuchal rigidity, or vertebral point tenderness. No Meningismus. Chest/axilla: Normal chest wall appearance and motion. Nontender with no deformity. No lesions are appreciated. Cardiovascular: Regular rate and rhythm with a normal S1 and S2. No gallops, murmurs, or rubs. Normal PMI, no JVD. No pulse deficits. Respiratory: Lungs have equal breath sounds bilaterally, clear to auscultation and percussion. No rales, rhonchi or wheezes noted. No increased work of breathing, no retractions or nasal flaring. Back: No spinal tenderness. No costovertebral tenderness. Full range of motion. Skin: Warm, dry with normal turgor. Normal color with no rashes, no lesions, and no evidence of cellulitis. MS/ Extremity: Pulses equal, no cyanosis. Neurovascular intact. Full, normal range of motion. Neuro: Awake and alert, GCS 15, oriented to person, place, time, and situation. Cranial nerves II-XII grossly intact. Motor strength 5/5 in all extremities. Sensory grossly intact. Cerebellar exam normal. Normal gait. kb 15:14 14:54 Hospitalization Ordered by Cody Moya DO for Inpatient Admission. Preliminary kb diagnosis is Urinary tract infection, site not specified; Elevated white blood cell count. Bed requested for Telemetry/MedSurg (Inpatient). Status is Inpatient Admission. Condition is Stable. Problem is new. Symptoms are unchanged. UTI on Admission? Yes. kb 15:58 15:14 09/28/2018 14:54 Hospitalization Ordered by Cody Moya DO for Inpatient bd Admission. Preliminary diagnosis is Urinary tract infection, site not specified; Elevated white blood cell count; Dehydration. Bed requested for Telemetry/MedSurg (Inpatient). Status is Inpatient Admission. Condition is Stable. Problem is new. Symptoms are unchanged. UTI on Admission? Yes. kb 17:51 15:58 09/28/2018 14:54 Hospitalization Ordered by Cody Moya DO for Inpatient ca1 Admission. Preliminary diagnosis is Urinary tract infection, site not specified; Elevated white blood cell count; Dehydration. Bed requested for Telemetry/MedSurg (Inpatient). Status is Inpatient Admission. Condition is Stable. Problem is new. Symptoms are unchanged. UTI on Admission? Yes. bd
[2018-09-28] MEDS ORDERED: CEFTRIAXONE/SWI 1gm 1 GM/10 ML SYR ONE (14:55)
--- NOTE | 2018-09-28 15:38 | RAD REPORT ---
EXAM DESCRIPTION: CTAbdomen Pelvis W Contrast - 09/28/2018 3:12 pm CLINICAL HISTORY: Abdominal pain. iv contrast only;Abd pain COMPARISON: Abdomen Pelvis W Contrast dated 02/17/2016; Abdomen Pelvis W Contrast dated 12/27/2015 ; CT ABD PELVIS W CONTRAST dated 05/30/2013 TECHNIQUE: Biphasic CT imaging of the abdomen and pelvis was performed with 100 ml non-ionic IV cont rast. All CT scans are performed using dose optimization technique as appropriate and may include automated exposure control or mA/KV adjustment according to patient size. FINDINGS: The lung bases are clear. The liver demonstrates diffuse fatty infiltration. The spleen, pancreas, adrenal glands and kidneys a re within normal limits. IVC filter in place. No bowel obstruction, free air, free fluid or abscess. The appendix is normal. A few mildly promine nt inguinal lymph nodes are present bilaterally, likely reactive. No suspicious bony findings. Spinal fusion hardware noted upper lumbar spine. IMPRESSION: No acute intra-abdominal or pelvic finding.
[2018-09-28 16:05] LABS: Urine Bacteria 20-50 /HPF (NONE SEEN)
[2018-09-28 16:06] LABS: Urine Culture Reflex Order REFLEXED; Urine RBC <5 /HPF (NONE SEEN)
[2018-09-28 16:06] LABS: Urine Blood TRACE (NEG); Urine Glucose NEGATIVE (NEG); Urine Protein NEGATIVE (NEG); Urine Specific Gravity 1.015 (1.005-1.030)
--- NOTE | 2018-09-28 16:33 | P.HP ---
Certification for Inpatient Patient admitted to: Inpatient With expected LOS: >2 Midnights Patient will require the following post-hospital care: None Practitioner: I am a practitioner with admitting privileges, knowledge of patient current condition, hospital course, and medical plan of care. Services: Services provided to patient in accordance with Admission requirements found in Title 42 Section 412.3 of the Code of Federal Regulations Patient History Date of Service: 09/28/18 Primary Care Provider: Paul Burrell Reason for admission: Chills, UTI like symptoms History of Present Illness: 33-year-old male with history of paraplegia below T12. Patient also reports history of UTI in the past. Patient reports chills, nausea and vomiting today. With his history of UTIs in the past, patient came to the ER for further evaluation. Patient was concerned for UTI. In the ER patient evaluated. White count 21.5, hemoglobin 14. Blood pressure stable. Patient slightly tachycardic. Sodium 138, potassium 3.5, BUN of 10, creatinine 0.7 with a GFR greater than 90. Urinalysis showed bacteria. Patient admitted for treatment. Patient given IV fluids in the emergency room. When I saw the patient ER, he appeared stable. He did not appear septic.. Allergies No Known Allergies Allergy (Verified 04/19/17 23:19) Home medications list reviewed: Yes Home Medications: Amoxicillin/Potassium Clav [Augmentin 875-125 Tablet] 1 each PO BID #28 tablet 07/15/18 Nitrofuran Macro [Macrobid*] 100 mg PO BID #28 cap 07/15/18 - Past Medical/Surgical History Diabetic: No -: Chronic recurrent UTI -: Paraplegia to the lower extremity -: Previous work related injury causing T12 paraplegia -: Tobacco abuse -: History of IVC filter placed -: T12 fx surgery -: IVC Filter(spine) Psychosocial/ Personal History: He is single. Has no children, he currently lives by himself. - Family History Family History: Reviewed- Non-Contributory - Social History Smoking Status: Heavy Tobacco smoker (>10 cigarettes/day) Alcohol use: Yes CD- Drugs: No Caffeine use: No Place of Residence: Home Review of Systems General: Chills, Weakness, As per HPI Eyes: Unremarkable ENT: Unremarkable Respiratory: Unremarkable Cardiovascular: Unremarkable Gastrointestinal: Nausea, Vomiting, As per HPI Genitourinary: Frequency, As per HPI Musculoskeletal: Unremarkable Integumentary: Unremarkable Neurological: Unremarkable Lymphatics: Unremarkable Physical Examination - Physical Exam General: Alert, In no apparent distress, Oriented x3, Cooperative HEENT: Atraumatic, Normocephalic, PERRLA, Mucous membr. moist/pink Neck: Supple, No Thyromegaly Respiratory: Clear to auscultation bilaterally, Normal air movement Cardiovascular: Normal pulses, Regular rate/rhythm Gastrointestinal: Normal bowel sounds, Soft and benign, Non-distended, No tenderness, No masses, No rebound, No guarding Musculoskeletal: No erythema, No tenderness, No warmth Integumentary: No erythema, No warmth, No cyanosis Neurological: Other (paraplegic below T12. Patient uses condom catheter) - Studies Laboratory Data (last 24 hrs) 09/28/18 13:23: Sodium 138, Potassium 3.5, BUN 10, Creatinine 0.76, Glucose 105 09/28/18 13:23: WBC 21.5 H*, Hgb 14.4, Hct 43.1, Plt Count 319 Assessment and Plan - Plan Impression: UTI with history of recurrent UTI complicated with history of T12 paraplegia from prior work accident Nausea and vomiting with dehydration Tobacco abuse Plan: UTI with history of recurrent UTI complicated with history of T12 paraplegia from prior work accident: Patient will be admitted. Will start IV fluids. Antibiotics started. Will await urine and blood culture results. Patient uses condom catheter. Anticipate improvement. Likely discharge in the next 48-72 hr once urine culture obtained. Nausea and vomiting with dehydration: Continue IV fluids. Will monitor closely. Tobacco abuse: Will address lifestyle modification education and tobacco cessation. Discharge Plan: Home Plan to discharge in: Greater than 2 days - Advance Directives Does patient have a Living Will: No Does patient have a Durable POA for Healthcare: No - Code Status/Comfort Care Code Status Assessed: Yes (Patient is full code.) Time Spent Managing Pts Care (In Minutes): 55
[2018-09-28] MEDS ORDERED: ONDANSETRON 4 MG/2 ML VIAL IV PRN (17:17)
[2018-09-28] MEDS ORDERED: HYDROCODONE/APAP 7.5/325 MG TAB PO PRN (17:17)
[2018-09-28 18:06] VITALS: BMI 33.5
[2018-09-28 18:08] LABS: Thyroid Stimulating Hormone 0.61 uIU/mL (0.360-3.740)
[2018-09-28] MEDS: NA CHLORIDE 0.9% 1,000 ML IV SCH (18:25)
[2018-09-28] MEDS: ACETAMINOPHEN 500 MG TAB PO PRN (18:25)
[2018-09-28] MEDS: ENOXAPARIN 40 MG/0.4 ML SQ SCH (18:26)
[2018-09-28] MEDS: TRAMADOL HCL 50 MG TAB PO PRN (18:26)
[2018-09-28] MEDS ORDERED: POTASSIUM CL SA 10 MEQ TAB PO ONE (21:00)
[2018-09-28] MEDS: FAMOTIDINE 20 MG TAB PO SCH (21:59)
[2018-09-29] MEDS: ACETAMINOPHEN 500 MG TAB PO PRN ×2 (01:50→22:02)
[2018-09-29] MEDS: NA CHLORIDE 0.9% 1,000 ML IV SCH ×3 (01:51→17:17)
[2018-09-29 06:37] LABS: Absolute Lymphocytes (CBC) 1.2 K/uL (0.7-4.9); Absolute Monocytes 0.6 K/uL (0.1-1.3); Absolute Neutrophil 10.5 K/uL (1.8-8.0); Basophils % 0.2 % (0-1.3); Eosinophils % 0.3 % (0-4.4); Lymphocytes % 9.7 % (15.3-44.8); Monocytes % 4.9 % (3.3-12.3); RBC Red Blood Cell Count 4.32 M/uL (4.33-5.43)
[2018-09-29 07:21] LABS: BUN Blood Urea Nitrogen 7 mg/dL (7-18); Bicarbonate 24 mmol/L (21-32); Glucose Level 101 mg/dL (74-106); Magnesium 2.1 mg/dL (1.8-2.4); Potassium 3.7 mmol/L (3.5-5.1); Sodium Level 140 mmol/L (136-145)
[2018-09-29] MEDS ORDERED: POTASSIUM 25 MEQ EFFERV TAB PO ONE (09:17)
[2018-09-29] MEDS: ENOXAPARIN 40 MG/0.4 ML SQ SCH (09:23)
[2018-09-29] MEDS: CEFTRIAXONE/SWI 1gm 1 GM/10 ML SYR IVP SCH (09:23)
[2018-09-29] MEDS: FAMOTIDINE 20 MG TAB PO SCH ×2 (09:23→20:24)
[2018-09-29] MEDS: TRAMADOL HCL 50 MG TAB PO PRN ×2 (09:23→18:57)
--- NOTE | 2018-09-29 13:58 | P.PN ---
Subjective Date of Service: 09/29/18 Primary Care Provider: Kake Ashanti Chief Complaint: Chills, UTI like symptoms Subjective: No C/O voiced, Improving Patient seen and examined at bedside. No family at bedside. Chart reviewed and case discussed with nursing staff. No acute events noted overnight. Review of Systems 10-point ROS is otherwise unremarkable Physical Examination - Vital Signs Temperature: 98.4 F Blood Pressure: 124/81 Pulse: 97 Respirations: 16 Pulse Ox (%): 100 - Physical Exam General: Alert, In no apparent distress, Oriented x3 HEENT: Atraumatic, PERRLA, EOMI Neck: Supple, JVD not distended Respiratory: Clear to auscultation bilaterally, Normal air movement Cardiovascular: Regular rate/rhythm, Normal S1 S2 Gastrointestinal: Normal bowel sounds, No tenderness Musculoskeletal: No tenderness Integumentary: No rashes Neurological: Normal affect, Other (Paraplegia below T12, uses condom cath) Lymphatics: No axilla or inguinal lymphadenopathy - Studies Laboratory Data (last 24 hrs) 09/28/18 13:23: Sodium 138, Potassium 3.5, BUN 10, Creatinine 0.76, Glucose 105 09/28/18 13:23: WBC 21.5 H*, Hgb 14.4, Hct 43.1, Plt Count 319 Assessment And Plan - Plan UTI History of recurrent UTI History of T12 paraplegia from prior work accident: Continue IV antibiotics with Rocephin, pending urine cultures. Patient continues to use condom catheter. Doing well otherwise. Anticipate discharge once cultures are finalized. Nausea and vomiting with dehydration: Resolved. Tolerating PO diet. Discontinue IV fluids. Tobacco abuse: counseled on tobacco cessation. DVT prophylaxis: Lovenox GI prophylaxis: None Diet: Regular Dispo: Pending cultures. Discharge Plan: Home Plan to discharge in: 24 Hours
[2018-09-30] MEDS: NA CHLORIDE 0.9% 1,000 ML IV SCH ×2 (04:43→09:17)
[2018-09-30 05:39] LABS: Absolute Lymphocytes (CBC) 1.4 K/uL (0.7-4.9); Absolute Monocytes 0.9 K/uL (0.1-1.3); Absolute Neutrophil 5.8 K/uL (1.8-8.0); Basophils % 0.4 % (0-1.3); Eosinophils % 3.1 % (0-4.4); Hematocrit 38.4 % (39.6-49.0); Lymphocytes % 16.7 % (15.3-44.8); MPV 8.1 fL (7.6-11.3); Monocytes % 11.2 % (3.3-12.3); RBC Red Blood Cell Count 4.35 M/uL (4.33-5.43)
[2018-09-30 05:53] LABS: BUN Blood Urea Nitrogen 6 mg/dL (7-18); Bicarbonate 26 mmol/L (21-32); Glucose Level 106 mg/dL (74-106); Magnesium 2.1 mg/dL (1.8-2.4); Potassium 3.6 mmol/L (3.5-5.1); Sodium Level 141 mmol/L (136-145)
[2018-09-30 08:04] VITALS: O2SAT 98
[2018-09-30] MEDS ORDERED: POTASSIUM 25 MEQ EFFERV TAB PO ONE (09:00)
[2018-09-30] MEDS: ENOXAPARIN 40 MG/0.4 ML SQ SCH (09:43)
[2018-09-30] MEDS: FAMOTIDINE 20 MG TAB PO SCH (09:44)
[2018-09-30] MEDS: CEFTRIAXONE/SWI 1gm 1 GM/10 ML SYR IVP SCH (09:44)
[2018-09-30] MEDS: TRAMADOL HCL 50 MG TAB PO PRN (09:57)
--- NOTE | 2018-09-30 11:14 | P.DS ---
Admission Date: 09/28/18 Discharge Date: 09/30/18 Primary Care Provider: [place] Ashanti Disposition: ROUTINE DISCHARGE Discharge Condition: GOOD Reason for Admission: Chills, UTI like symptoms Procedures: EXAM DESCRIPTION: CTAbdomen Pelvis W Contrast - 09/28/2018 3:12 pm TECHNIQUE: Biphasic CT imaging of the abdomen and pelvis was performed with 100 ml non-ionic IV contrast. All CT scans are performed using dose optimization technique as appropriate and may include automated exposure control or mA/KV adjustment according to patient size. FINDINGS: The lung bases are clear. The liver demonstrates diffuse fatty infiltration. The spleen, pancreas, adrenal glands and kidneys are within normal limits. IVC filter in place. No bowel obstruction, free air, free fluid or abscess. The appendix is normal. A few mildly prominent inguinal lymph nodes are present bilaterally, likely reactive. No suspicious bony findings. Spinal fusion hardware noted upper lumbar spine. IMPRESSION: No acute intra-abdominal or pelvic finding. Brief History of Present Illness: 33-year-old male with history of paraplegia below T12. Patient also reports history of UTI in the past. Patient reports chills, nausea and vomiting today. With his history of UTIs in the past, patient came to the ER for further evaluation. Patient was concerned for UTI. In the ER patient evaluated. White count 21.5, hemoglobin 14. Blood pressure stable. Patient slightly tachycardic. Sodium 138, potassium 3.5, BUN of 10, creatinine 0.7 with a GFR greater than 90. Urinalysis showed bacteria. Patient admitted for treatment. Patient given IV fluids in the emergency room. When I saw the patient ER, he appeared stable. He did not appear septic. Hospital Course: Patient was admitted for chills, nausea and vomiting. He does have a history of recurrent urinary tract infections in the past, likely secondary to his paraplegia below T 12. He was started on IV antibiotics and IV fluids. He did not have any evidence of sepsis. His white count improved with the IV antibiotics, clinically his symptoms also resolved. His urine culture grew Serratia sensitive to oral Bactrim. He was transitioned from IV Rocephin to oral Bactrim for a 5 day course. He was then discharged with prescription for oral antibiotics. He remained hemodynamically stable throughout the stay. Vital Signs/Physical Exam: Temp Pulse Resp BP Pulse Ox 97.1 F 78 18 156/104 H 98 09/30/18 08:00 09/30/18 08:00 09/30/18 08:00 09/30/18 08:00 09/30/18 08:00 General: Alert, In no apparent distress, Oriented x3 HEENT: Atraumatic, PERRLA, EOMI Neck: Supple, JVD not distended Respiratory: Clear to auscultation bilaterally, Normal air movement Cardiovascular: Regular rate/rhythm, Normal S1 S2 Gastrointestinal: Normal bowel sounds, No tenderness Musculoskeletal: No tenderness Integumentary: No rashes Neurological: Normal speech, Normal tone, Normal affect, Other (Paraplegia below T12) Laboratory Data at Discharge: WBC 8.5 K/uL (4.3-10.9) D 09/30/18 04:58 Hgb 12.8 g/dL (13.6-17.9) L 09/30/18 04:58 Hct 38.4 % (39.6-49.0) L 09/30/18 04:58 Plt Count 268 K/uL (152-406) 09/30/18 04:58 Sodium 141 mmol/L (136-145) 09/30/18 04:58 Potassium 3.6 mmol/L (3.5-5.1) 09/30/18 04:58 BUN 6 mg/dL (7-18) L 09/30/18 04:58 Creatinine 0.64 mg/dL (0.55-1.3) 09/30/18 04:58 Glucose 106 mg/dL (74-106) 09/30/18 04:58 Magnesium 2.1 mg/dL (1.8-2.4) 09/30/18 04:58 Home Medications: Sulfamethoxazole/Trimethoprim [Bactrim Ds Tablet] 1 each PO BID #10 tablet 09/30 New Medications: Sulfamethoxazole/Trimethoprim [Bactrim Ds Tablet] 1 each PO BID #10 tablet Patient Discharge Instructions: Please follow up with your primary care physician in 1 week. Please follow up with your urologist in 1-2 weeks. New medications: Bactrim, an antibiotic for your urinary tract infection. Please return to the emergency room for worsening symptoms Diet: AHA Activity: Ad matthew Followup: Luanne Smith MD [Primary Care Provider] - Time spent managing pt's care (in minutes): 55
[2018-09-30 13:55] VITALS: BP 144/98; TEMP 97.8
== END 2018-09-30 13:30 | disposition home or self-care (01) ==
LOC: ER 12:11 → INTOOBSV 15:15 → ERHOLD 15:15 → 4TH 17:14
PROVIDERS: ADMIT Family Medicine; ATTEND Family Medicine
DX: N39.0 Urinary tract infection, site not specified (principal); R11.2 Nausea with vomiting, unspecified; E86.0 Dehydration; G82.20 Paraplegia, unspecified; F17.210 Nicotine dependence, cigarettes, uncomplicated
CPT/HCPCS: 36415; 51702; 74177; 80048; 81003; 81015; 83605; 83735; 84145; 84439; 84443; 85025; 87040; 87077; 87086; 87088; 87186; 96361; 96365; 96375; 99285; G0378; J0696; J1650; J2270; J2405; J7030; Q9967

== ENCOUNTER 2018-11-14 15:20 | Inpatient (IN) | payer OTHER ==
[2018-11-14] MEDS ORDERED: NA CHLORIDE 0.9% 1,000 ML ONE ×3 (17:32→18:46)
[2018-11-14 17:45] LABS: Urine Bacteria >50 /HPF (NONE SEEN); Urine RBC 20-50 /HPF (NONE SEEN)
[2018-11-14 17:46] LABS: Urine Culture Reflex Order NOT NEEDED; Urine White Blood Cell Casts 0-5 /LPF (NONE SEEN)
[2018-11-14 18:01] LABS: Absolute Lymphocytes (CBC) 0.9 K/uL (0.7-4.9); Absolute Monocytes 0.8 K/uL (0.1-1.3); Absolute Neutrophil 19.2 K/uL (1.8-8.0); Basophils % 0.1 % (0-1.3); Eosinophils % 0.2 % (0-4.4); Lymphocytes % 4.3 % (15.3-44.8); MPV 8.1 fL (7.6-11.3); Monocytes % 3.8 % (3.3-12.3); RBC Red Blood Cell Count 4.92 M/uL (4.33-5.43)
[2018-11-14] MEDS ORDERED: FENTANYL CITR 100 MCG/2 ML ONE (18:01)
[2018-11-14] MEDS ORDERED: ACETAMINOPHEN 500 MG TAB ONE (18:16)
[2018-11-14 18:17] LABS: ALT/SGPT 51 U/L (12-78); AST/SGOT 33 U/L (15-37); Alkaline Phosphatase 164 U/L (45-117); BUN Blood Urea Nitrogen 9 mg/dL (7-18); Bicarbonate 23 mmol/L (21-32); Bilirubin Direct 0.1 mg/dL (0-0.2); Bilirubin Total 0.7 mg/dL (0.2-1.0); Glucose Level 94 mg/dL (74-106); Potassium 3.4 mmol/L (3.5-5.1); Protein, Total 8.3 g/dL (6.4-8.2); Sodium Level 139 mmol/L (136-145)
[2018-11-14] MEDS ORDERED: POTASSIUM 25 MEQ EFFERV TAB ONE (18:46)
[2018-11-14] MEDS ORDERED: CEFTRIAXONE/SWI 1gm 1 GM/10 ML SYR ONE (18:46)
[2018-11-14 18:59] LABS: Blood Morphology Comment NOT SEEN (NOT SEEN); Platelet Estimate ADEQ
--- NOTE | 2018-11-14 19:41 | ER ---
Nurse's Notes [facility] Name: Aidan East Age: 33 yrs Sex: Male : 1985 Arrival Date: 11/14/2018 Time: 15:26 Bed 19 Private MD: Diagnosis: Other specified sepsis;Urinary tract infection, site not specified Presentation: 11/14 16:22 Presenting complaint: Patient states: i have fever and the shakes and i think i have a tw2 UTI, i have a chronic uti so i know, frequency urgency burning with urination. Transition of care: patient was not received from another setting of care. Onset of symptoms was November 14, 2018. Risk Assessment: Do you want to hurt yourself or someone else? Patient reports no desire to harm self or others. Initial Sepsis Screen: Does the patient meet any 2 criteria? HR > 90 bpm. No. Patient's initial sepsis screen is negative. Does the patient have a suspected source of infection? Yes: Dysuria/Frequency/Urgency/UTI. Care prior to arrival: None. 16:22 Method Of Arrival: Wheelchair tw2 16:22 Acuity: SPIKE 2 tw2 Triage Assessment: 16:23 General: Appears uncomfortable, Behavior is calm, cooperative, appropriate for age. tw2 Pain: Complains of pain in low back area, left low back and right low back. GI: Reports lower abdominal pain, nausea, vomiting. : Reports burning with urination, urinary frequency, since this morning. Historical: - Allergies: 16:24 No Known Allergies; tw2 - Home Meds: 16:24 None [Active]; tw2 - PMHx: 16:24 paraplegic; UTI; tw2 - PSHx: 16:24 T12 vertebrae; tw2 - Immunization history:: Adult Immunizations up to date. - Social history:: Smoking status: Patient/guardian denies using tobacco, Patient uses alcohol, occasionally. - Ebola Screening: : Patient denies travel to an Ebola-affected area in the 21 days before illness onset. Screenin:05 Abuse screen: Denies threats or abuse. Nutritional screening: No deficits noted. em Tuberculosis screening: No symptoms or risk factors identified. Fall Risk None identified. Assessment: 17:05 General: Appears in no apparent distress. comfortable, Behavior is calm, cooperative, em Reports fever for 0-12 hours. Pain: Complains of pain in low back area Pain currently is 8 out of 10 on a pain scale. Neuro: Level of Consciousness is awake, alert, obeys commands, Oriented to person, place, time, situation. Cardiovascular: Capillary refill < 3 seconds Patient's skin is warm and dry. Respiratory: Airway is patent Respiratory effort is even, unlabored, Respiratory pattern is regular, symmetrical. GI: Abdomen is flat, Reports nausea, vomiting, Patient currently denies abdominal pain. Derm: Skin is intact, is healthy with good turgor, Skin is pink, warm \T\ dry. Musculoskeletal: Capillary refill < 3 seconds, Range of motion: intact in all extremities. 18:10 Reassessment: Patient appears in no apparent distress at this time. Patient and/or em family updated on plan of care and expected duration. Pain level reassessed. Patient is alert, oriented x 3, equal unlabored respirations, skin warm/dry/pink. pending room assignment. 19:21 Reassessment: Patient appears in no apparent distress at this time. Patient and/or cc3 family updated on plan of care and expected duration. Pain level reassessed. Patient is alert, oriented x 3, equal unlabored respirations, skin warm/dry/pink. Received this male patient from morning shift [facility] as a case of UTI for admission, awaiting admission orders. With IV cannula gauge 20 at the left ACV with ongoing 3 liters of NS bolus infusing well. Patient denies pain at this time. Patient states feeling better. 20:30 Reassessment: Patient appears in no apparent distress at this time. Patient and/or cc3 family updated on plan of care and expected duration. Pain level reassessed. Patient is alert, oriented x 3, equal unlabored respirations, skin warm/dry/pink. Repeat lactate level taken and sent to laboratory. 21:20 Reassessment: Patient appears in no apparent distress at this time. Patient and/or cc3 family updated on plan of care and expected duration. Pain level reassessed. Patient is alert, oriented x 3, equal unlabored respirations, skin warm/dry/pink. RT came to do ABG but he said patient refused so RT said he will inform Dr. Castano. 21:28 Reassessment: Room available in 416, report called and handed over to LANCE Flowers cc3 for continuity of care and management. Patient denies pain at this time. Patient states feeling better. 21:50 Reassessment: Patient appears in no apparent distress at this time. Patient and/or cc3 family updated on plan of care and expected duration. Pain level reassessed. Patient is alert, oriented x 3, equal unlabored respirations, skin warm/dry/pink. Patient left ER for admission vitally stable by stretcher escorted by supply tech Charly. Patient denies pain at this time. Patient states feeling better. Vital Signs: 16:24 BP 128 / 86; Pulse 126; Resp 19; Temp 98.9(O); Pulse Ox 98% on R/A; Weight 117.93 kg tw2 (R); Height 6 ft. 2 in. (187.96 cm) (R); Pain 8/10; 17:15 BP 126 / 70; Pulse 134; Resp 20; Pulse Ox 99% on R/A; em 17:55 BP 115 / 75; Pulse 114; Resp 19; Temp 100.7; Pulse Ox 97% on R/A; ms 19:20 BP 119 / 77; Pulse 110; Resp 20 S; Temp 99.9(O); Pulse Ox 96% on R/A; cc3 20:45 BP 100 / 66; Pulse 114; Resp 20 S; Temp 98.5(O); Pulse Ox 97% on R/A; cc3 21:23 BP 122 / 63; Pulse 104; Resp 20 S; Pulse Ox 97% on R/A; cc3 16:24 Body Mass Index 33.38 (117.93 kg, 187.96 cm) tw2 ED Course: 15:26 Patient arrived in ED. mr 16:23 Triage completed. tw2 16:23 Arm band placed on. tw2 16:58 Yobany Muse PA is PHCP. cp 16:58 Angelo Lopez MD is Attending Physician. cp 17:00 Satnam Sandoval LVN is Primary Nurse. em 17:10 Patient has correct armband on for positive identification. Placed in gown. Bed in low em position. Call light in reach. Pulse ox on. NIBP on. 17:47 Second set of blood cultures drawn. ms 19:40 Melanie Castano MD is Hospitalizing Provider. cp 21:28 No provider procedures requiring assistance completed. Patient admitted, IV remains in cc3 place. Administered Medications: 17:31 Drug: NS 0.9% 1000 ml Route: IV; Rate: 1 bolus; Site: left antecubital; em 18:00 Drug: fentaNYL (PF) 25 mcg Route: IVP; Site: left antecubital; iw 18:41 Follow up: Response: No adverse reaction; Pain is decreased em 18:07 Drug: Tylenol 1000 mg Route: PO; em 19:16 Follow up: Response: No adverse reaction; Temperature is decreased cc3 18:08 Drug: NS 0.9% 1000 ml Route: IV; Rate: 1 bolus; Site: left antecubital; em 19:05 Follow up: Response: No adverse reaction; IV Status: Completed infusion; IV Intake: cc3 1000ml 18:40 Drug: NS 0.9% 1000 ml Route: IV; Rate: 1 bolus; Site: left antecubital; em 19:45 Follow up: Response: No adverse reaction; IV Status: Completed infusion; IV Intake: cc3 1000ml 18:40 Drug: Potassium Effervescent Tablet 25 mEq Route: PO; em 19:15 Follow up: Response: No adverse reaction cc3 18:41 Drug: fentaNYL (PF) 25 mcg Route: IVP; Site: left antecubital; em 19:16 Follow up: Response: No adverse reaction; Pain is decreased cc3 18:45 Drug: Rocephin - (cefTRIAXone) 1 grams Route: IVPB; Infused Over: 30 mins; Site: left iw antecubital; 19:15 Follow up: Response: No adverse reaction; IV Status: Completed infusion cc3 20:00 Drug: Zofran 4 mg Route: IVP; Site: left antecubital; cc3 21:00 Follow up: Response: No adverse reaction; Nausea is decreased cc3 Intake: 19:05 IV: 1000ml; Total: 1000ml. cc3 19:45 IV: 1000ml; Total: 2000ml. cc3 Outcome: 19:41 Decision to Hospitalize by Provider. cp 21:28 Admitted to Tele accompanied by fanta, via stretcher, room 416, with chart, Report cc3 called to LANCE Flowers 21:28 Condition: stable 21:28 Instructed on the need for admit, Demonstrated understanding of instructions. 22:01 Patient left the ED. cc3 Signatures: Didi Sutton mr Jaime, Satnam, LINOTYPER LINOTYPER em Angela Morse RN RN Edwina Tolbert ms Yobany Muse PA PA cp Wise, Tara, RN RN tw2 Zakiya Lino cc3 Corrections: (The following items were deleted from the chart) 21:23 21:22 BP 100 / 66; Pulse 114bpm; Resp 20bpm; Spontaneous; Pulse Ox 97% RA; Temp 98.5F cc3 Oral; cc3
--- NOTE | 2018-11-14 19:41 | EDPHYS ---
Physician Documentation [facility] Name: Aidan East Age: 33 yrs Sex: Male : 1985 Arrival Date: 11/14/2018 Time: 15:26 Bed 19 Private MD: ED Physician Angelo Lopez HPI: 11/14 17:35 This 33 yrs old Male presents to ER via Wheelchair with complaints of Urinary cp Problem, Fever, Vomiting. 17:35 The patient presents with urinary symptoms, urinary frequency, burning. cp 17:35 Onset: The symptoms/episode began/occurred yesterday. Associated signs and symptoms: cp Pertinent positives: fever. 17:35 Severity of symptoms: in the emergency department the symptoms are unchanged, despite cp home interventions. Historical: - Allergies: 16:24 No Known Allergies; tw2 - Home Meds: 16:24 None [Active]; tw2 - PMHx: 16:24 paraplegic; UTI; tw2 - PSHx: 16:24 T12 vertebrae; tw2 - Immunization history:: Adult Immunizations up to date. - Social history:: Smoking status: Patient/guardian denies using tobacco, Patient uses alcohol, occasionally. - Ebola Screening: : Patient denies travel to an Ebola-affected area in the 21 days before illness onset. ROS: 17:40 Constitutional: Positive for chills, Negative for fever, poor PO intake. cp 17:40 Eyes: Negative for injury, pain, redness, and discharge. cp 17:40 ENT: Negative for ear pain, sore throat, difficulty swallowing, difficulty handling secretions. 17:40 Cardiovascular: Negative for chest pain. 17:40 Respiratory: Negative for cough, shortness of breath, wheezing. 17:40 Abdomen/GI: Positive for abdominal pain, nausea, Negative for vomiting, diarrhea, constipation, black/tarry stool, rectal bleeding. 17:40 : Positive for urinary frequency, burning with urination, Negative for testicular pain 17:40 Skin: Negative for rash. 17:40 Neuro: Negative for altered mental status, headache, weakness. 17:40 All other systems are negative. Exam: 17:45 Constitutional: The patient appears in no acute distress, alert, awake, non-toxic, well cp developed, well nourished, uncomfortable. 17:45 Head/Face: Normocephalic, atraumatic. cp 17:45 Eyes: Periorbital structures: appear normal, Conjunctiva: normal, no exudate, no injection, Sclera: no appreciated abnormality, Lids and lashes: appear normal, bilaterally. 17:45 ENT: External ear(s): are unremarkable, Ear canal(s): are normal, clear, TM's: dullness, bilaterally, Nose: is normal, Mouth: Lips: moist, Oral mucosa: pink and intact, moist, Posterior pharynx: is normal, airway is patent, no erythema, no exudate. 17:45 Neck: ROM/movement: is normal, is supple, without pain, no range of motions limitations, no meningismus, no nuchal rigidity. 17:45 Chest/axilla: Inspection: normal, Palpation: is normal, no crepitus, no tenderness. 17:45 Cardiovascular: Rate: tachycardic, Rhythm: regular. 17:45 Respiratory: the patient does not display signs of respiratory distress, Respirations: normal, no use of accessory muscles, no retractions, no splinting, no tachypnea, labored breathing, is not present, Breath sounds: are clear throughout, no decreased breath sounds, no stridor, no wheezing. 17:45 Abdomen/GI: Inspection: abdomen appears normal, Palpation: abdomen is soft and non-tender, in all quadrants, rebound tenderness, is not appreciated, voluntary guarding, is not appreciated, involuntary guarding, is not appreciated. 17:45 Skin: no rash present. Vital Signs: 16:24 BP 128 / 86; Pulse 126; Resp 19; Temp 98.9(O); Pulse Ox 98% on R/A; Weight 117.93 kg tw2 (R); Height 6 ft. 2 in. (187.96 cm) (R); Pain 8/10; 17:15 BP 126 / 70; Pulse 134; Resp 20; Pulse Ox 99% on R/A; em 17:55 BP 115 / 75; Pulse 114; Resp 19; Temp 100.7; Pulse Ox 97% on R/A; ms 19:20 BP 119 / 77; Pulse 110; Resp 20 S; Temp 99.9(O); Pulse Ox 96% on R/A; cc3 20:45 BP 100 / 66; Pulse 114; Resp 20 S; Temp 98.5(O); Pulse Ox 97% on R/A; cc3 21:23 BP 122 / 63; Pulse 104; Resp 20 S; Pulse Ox 97% on R/A; cc3 16:24 Body Mass Index 33.38 (117.93 kg, 187.96 cm) tw2 MDM: 16:58 Patient medically screened. 19:40 Data reviewed: vital signs, nurses notes, lab test result(s), I have discussed the patient's presentation/case with the attending Emergency Department Physician; and as a result, I will admit patient. 19:40 Physician consultation: Melanie Castano MD was called at 19:40, was contacted at 19:40, regarding admission, to the medical/surgical unit. patient's condition. 11/14 15:30 Order name: Urine Culture [facility] 11/14 15:30 Order name: Urine Microscopic Only; Complete Time: 18:29 [facility] 11/14 18:29 Interpretation: Normal except: UWBC LOADED; URBC 20-50; UBACT >50; SQEPI 5-10. 11/14 15:31 Order name: Urine Culture [facility] 11/14 17:34 Order name: CBC with Diff 11/14 17:34 Order name: BMP; Complete Time: 18:29 11/14 18:29 Interpretation: Normal except: K 3.4. 11/14 17:34 Order name: LFT's; Complete Time: 18:29 11/14 17:34 Order name: Procalcitonin; Complete Time: 19:36 11/14 19:36 Interpretation: Abnormal: Procalcitonin 0.92; Reviewed. 11/14 17:34 Order name: Blood Culture Adult (2) 11/14 17:34 Order name: Lactate; Complete Time: 18:29 11/14 17:34 Order name: CBC with Automated Diff; Complete Time: 19:36 [facility] 11/14 18:24 Order name: Manual Differential; Complete Time: 19:36 [facility] 11/14 20:39 Order name: Lactate [facility] 11/14 20:41 Order name: ABG Arterial Blood Gas [facility] 11/14 21:01 Order name: Lactate Sepsis 2 HR Follow-up [facility] 11/14 15:30 Order name: Urine Dipstick-Ancillary (obtain specimen); Complete Time: 17:16 snw 11/14 20:40 Order name: CONS Pharmacy Consult [facility] 11/14 20:40 Order name: CONS Infection Control Cons [facility] 11/14 20:40 Order name: Social Service Consult [facility] 11/14 20:42 Order name: CONS Pharmacy Consult EDMS Administered Medications: 17:31 Drug: NS 0.9% 1000 ml Route: IV; Rate: 1 bolus; Site: left antecubital; em 18:00 Drug: fentaNYL (PF) 25 mcg Route: IVP; Site: left antecubital; iw 18:41 Follow up: Response: No adverse reaction; Pain is decreased em 18:07 Drug: Tylenol 1000 mg Route: PO; em 19:16 Follow up: Response: No adverse reaction; Temperature is decreased cc3 18:08 Drug: NS 0.9% 1000 ml Route: IV; Rate: 1 bolus; Site: left antecubital; em 19:05 Follow up: Response: No adverse reaction; IV Status: Completed infusion; IV Intake: cc3 1000ml 18:40 Drug: NS 0.9% 1000 ml Route: IV; Rate: 1 bolus; Site: left antecubital; em 19:45 Follow up: Response: No adverse reaction; IV Status: Completed infusion; IV Intake: cc3 1000ml 18:40 Drug: Potassium Effervescent Tablet 25 mEq Route: PO; em 19:15 Follow up: Response: No adverse reaction cc3 18:41 Drug: fentaNYL (PF) 25 mcg Route: IVP; Site: left antecubital; em 19:16 Follow up: Response: No adverse reaction; Pain is decreased cc3 18:45 Drug: Rocephin - (cefTRIAXone) 1 grams Route: IVPB; Infused Over: 30 mins; Site: left iw antecubital; 19:15 Follow up: Response: No adverse reaction; IV Status: Completed infusion cc3 20:00 Drug: Zofran 4 mg Route: IVP; Site: left antecubital; cc3 21:00 Follow up: Response: No adverse reaction; Nausea is decreased cc3 Disposition: 11/15 19:16 Co-signature as Attending Physician, Angelo Lopez MD I agree with the assessment and kdr plan of care. Disposition: 11/14/18 19:41 Hospitalization ordered by Melanie Castano for Inpatient Admission. Preliminary diagnosis are Other specified sepsis, Urinary tract infection, site not specified. - Bed requested for Telemetry/MedSurg (Inpatient). - Status is Inpatient Admission. cc3 - Condition is Stable. - Problem is new. - Symptoms have improved. UTI on Admission? Yes Signatures: Dispatcher [employer] EDMS Angelo Lopez MD MD [facility] Rashmi Mccullough, AIRPORT LOCATION MANAGER-C AIRPORT LOCATION MANAGER-[employer] Gayla Esposito, RN RN fc Satnam Sandoval, RETAIL COVERAGE MERCHANDISER RETAIL COVERAGE MERCHANDISER em Angela Morse RN RN iw Yobany Muse PA PA cp Alyssa Ramsay RN RN tw2 Zakiya Lino cc3 Corrections: (The following items were deleted from the chart) 11/14 21: 19:41 Hospitalization Ordered by Melanie Castano MD for Inpatient Admission. Preliminary fc diagnosis is Other specified sepsis; Urinary tract infection, site not specified. Bed requested for Telemetry/MedSurg (Inpatient). Status is Inpatient Admission. Condition is Stable. Problem is new. Symptoms have improved. UTI on Admission? Yes. cp 22:01 21:01 11/14/2018 19:41 Hospitalization Ordered by Melanei Castano MD for Inpatient cc3 Admission. Preliminary diagnosis is Other specified sepsis; Urinary tract infection, site not specified. Bed requested for Telemetry/MedSurg (Inpatient). Status is Inpatient Admission. Condition is Stable. Problem is new. Symptoms have improved. UTI on Admission? Yes. fc
[2018-11-14] MEDS ORDERED: ONDANSETRON 4 MG/2 ML VIAL ONE (20:17)
[2018-11-14] MEDS ORDERED: CEFEPIME 1 GM/10 ML SYR IV SCH (20:45)
[2018-11-14 22:03] VITALS: BMI 35.6
[2018-11-14] MEDS: Levofloxacin500mg IV 500 MG/100 ML BAG IV SCH (22:19)
[2018-11-14] MEDS: NA CHLORIDE 0.9% 1,000 ML IV SCH (22:19)
[2018-11-14] MEDS ORDERED: CEFEPIME 1 GM in NA CHLORIDE 0.9% 100 ML IV ONE (23:00)
[2018-11-14] MEDS ORDERED: CEFEPIME 1 GM/100 ML BAG IV ONE (23:24)
[2018-11-15 01:38] LABS: Urine Appearance CLEAR; Urine Bilirubin NEGATIVE (NEG); Urine Blood NEGATIVE (NEG); Urine Color YELLOW; Urine Glucose NEGATIVE (NEG); Urine Protein NEGATIVE (NEG); Urine Urobilinogen 0.2 mg/dL (0.2-1.0); Urine pH 7.5 (5.0-7.0)
[2018-11-15 01:42] LABS: Urine Microscopic Reflex ORDER UMIC
[2018-11-15 01:51] LABS: Urine Bacteria <20 /HPF (NONE SEEN); Urine Culture Reflex Order NOT NEEDED; Urine RBC <5 /HPF (NONE SEEN)
[2018-11-15 06:10] LABS: Absolute Lymphocytes (CBC) 1.5 K/uL (0.7-4.9); Absolute Monocytes 0.9 K/uL (0.1-1.3); Absolute Neutrophil 15.5 K/uL (1.8-8.0); Basophils % 0.2 % (0-1.3); Eosinophils % 0.4 % (0-4.4); Hematocrit 38.2 % (39.6-49.0); Lymphocytes % 8.4 % (15.3-44.8); Monocytes % 4.8 % (3.3-12.3); RBC Red Blood Cell Count 4.34 M/uL (4.33-5.43)
[2018-11-15 06:20] LABS: BUN Blood Urea Nitrogen 6 mg/dL (7-18); Bicarbonate 24 mmol/L (21-32); Glucose Level 99 mg/dL (74-106); Magnesium 1.9 mg/dL (1.8-2.4); Phosphorus 2.1 mg/dL (2.5-4.9); Potassium 3.5 mmol/L (3.5-5.1); Sodium Level 141 mmol/L (136-145)
[2018-11-15] MEDS: FENTANYL CITR 100 MCG/2 ML IV PRN ×3 (06:27→22:13)
[2018-11-15] MEDS: PANTOPRAZOLE 40MG TABLET PO SCH (06:29)
[2018-11-15] MEDS: NA CHLORIDE 0.9% 1,000 ML IV SCH ×3 (06:30→20:39)
[2018-11-15] MEDS: ENOXAPARIN 30 MG/0.3 ML SQ SCH (08:28)
--- NOTE | 2018-11-15 08:41 | P.HP ---
Certification for Inpatient Patient admitted to: Inpatient With expected LOS: >2 Midnights Patient will require the following post-hospital care: None Practitioner: I am a practitioner with admitting privileges, knowledge of patient current condition, hospital course, and medical plan of care. Services: Services provided to patient in accordance with Admission requirements found in Title 42 Section 412.3 of the Code of Federal Regulations Patient History Date of Service: 11/14/18 Reason for admission: UTI/systemic inflammatory response syndrome History of Present Illness: Patient is a 33-year-old gentleman who is well known to me from prior admissions. He suffered a work related injury and suffered a T12 vertebral fracture which resulted in him becoming paraplegic. He would use a condom catheter and he has had bladder dysfunction since this time. He has had frequent UTIs. Yesterday he was also tachycardic and tachypneic along with having fevers and a leukocytosis. Hemodynamically however he remained stable. Patient was given aggressive IV fluid boluses. Patient was given IV antibiotics. Patient is clinically feeling better. Will admit him to the hospital for further treatment. Allergies No Known Allergies Allergy (Verified 04/19/17 23:19) Home Medications: NK [No Home Meds] 11/14/18 - Past Medical/Surgical History Diabetic: No -: Chronic recurrent UTI -: Paraplegia to the lower extremity -: Previous work related injury causing T12 paraplegia -: Tobacco abuse -: History of IVC filter placed -: T12 fx surgery -: IVC Filter(spine) Psychosocial/ Personal History: He is single. Has no children, he currently lives by himself. - Family History Father History Unknown: Yes Mother History Unknown: Yes - Social History Smoking Status: Current some day smoker Alcohol use: Yes CD- Drugs: Yes Caffeine use: Yes Place of Residence: Home Review of Systems 10-point ROS is otherwise unremarkable Physical Examination - Vital Signs Temperature: 98.4 F Blood Pressure: 121/84 Pulse: 100 Respirations: 16 Pulse Ox (%): 99 - Physical Exam General: Alert, In no apparent distress, Oriented x3 HEENT: Atraumatic, PERRLA, Mucous membr. moist/pink, EOMI, Sclerae nonicteric Neck: Supple, 2+ carotid pulse no bruit, No LAD, Without JVD or thyroid abnormality Respiratory: Clear to auscultation bilaterally, Normal air movement Cardiovascular: Regular rate/rhythm, Normal S1 S2, No murmurs Gastrointestinal: Normal bowel sounds, Soft and benign, Non-distended, Tenderness Musculoskeletal: No clubbing, No swelling, No tenderness Integumentary: No rashes Neurological: Normal speech, Sensation intact, Cranial nerves 3-12 intact, Abnormal gait, Abnormal strength, Abnormal tone Lymphatics: No axilla or inguinal lymphadenopathy - Studies Laboratory Data (last 24 hrs) 11/14/18 17:25: Sodium 139, Potassium 3.4 L, BUN 9, Creatinine 0.93, Glucose 94 , Total Bilirubin 0.7, AST 33, ALT 51, Alkaline Phosphatase 164 H 11/14/18 17:25: WBC 21.0 H*, Hgb 14.6, Hct 43.0, Plt Count 347 Assessment & Plan - Plan Plan: 1. Aggressive IV hydration 2. Broad antibiotic coverage 3. Await urine culture 4. Monitor labs closely 5. Repeat procalcitonin and lactic acid as needed 6. Patient hemodynamically stable and is not in shock however patient did have systemic inflammatory response syndrome it will need to be monitor closely 7. GI and DVT prophylaxis Discharge Plan: Home Plan to discharge in: Greater than 2 days - Advance Directives Does patient have a Living Will: No Does patient have a Durable POA for Healthcare: Yes - Code Status/Comfort Care Code Status Assessed: Yes Code Status: Full Code Critical Care: No Time Spent Managing PTS Care (In Minutes): 45
[2018-11-15] MEDS ORDERED: CEFEPIME 1 GM/10 ML SYR IV SCH (09:00)
[2018-11-15] MEDS: CEFEPIME/SWI 1gm 10 ML IV SCH ×2 (09:38→16:08)
[2018-11-15] MEDS ORDERED: POTASSIUM PHOS 30 MM in NA CHLORIDE 0.9% 500 ML IV ONE (10:00)
--- NOTE | 2018-11-15 11:54 | P.PN ---
Subjective Date of Service: 11/15/18 Chief Complaint: UTI/systemic inflammatory response syndrome Pt seen and examined at bedside. Chart Reviewed. Denies fever, chills, N/V at this time Review of Systems 10-point ROS is otherwise unremarkable Physical Examination - Vital Signs Temperature: 98.4 F Blood Pressure: 121/84 Pulse: 100 Respirations: 16 Pulse Ox (%): 99 - Physical Exam General: Alert, In no apparent distress HEENT: Atraumatic, PERRLA, EOMI Neck: Supple, JVD not distended Respiratory: Clear to auscultation bilaterally, Normal air movement Cardiovascular: Regular rate/rhythm, Normal S1 S2 Gastrointestinal: Normal bowel sounds, No tenderness Musculoskeletal: Other (paraplegic) Integumentary: No rashes Neurological: Normal speech, Normal tone, Normal affect Lymphatics: No axilla or inguinal lymphadenopathy - Studies Laboratory Data (last 24 hrs) 11/14/18 17:25: Sodium 139, Potassium 3.4 L, BUN 9, Creatinine 0.93, Glucose 94 , Total Bilirubin 0.7, AST 33, ALT 51, Alkaline Phosphatase 164 H 11/14/18 17:25: WBC 21.0 H*, Hgb 14.6, Hct 43.0, Plt Count 347 Medications List Reviewed: Yes Assessment And Plan - Current Problems (Diagnosis) (1) Sepsis Onset Date: 04/22/17 Current Visit: No Status: Acute Plan: Sepsis 2.2 to UTI. -Elevated WBC and LA on Admission -Started on IV abx - cefepime and Levaquin -IV fluids as well -Blood culture and urine culture collected -Will await Results Qualifiers: Sepsis type: sepsis due to unspecified organism Qualified Code(s): A41.9 - Sepsis, unspecified organism (2) UTI (urinary tract infection) Onset Date: 02/17/16 Current Visit: No Status: Acute Plan: H/o of recurrent UTI -Pt straight Caths due to be paraplegic -Urine culture pending -On IV abx for now Qualifiers: Urinary tract infection type: catheter-associated UTI Indwelling urinary catheter type: unspecified Encounter type: subsequent encounter (3) HTN (hypertension) Onset Date: 04/22/17 Current Visit: No Status: Chronic Qualifiers: Hypertension type: essential hypertension (4) History of paraplegia Current Visit: No Status: Chronic (5) Obesity Onset Date: 06/27/17 Current Visit: No Status: Chronic (6) Tobacco abuse Onset Date: 06/27/17 Current Visit: No Status: Chronic Discharge Plan: Home Plan to discharge in: 48 Hours - Code Status/Comfort Care Code Status Assessed: Yes Critical Care: No
[2018-11-15] MEDS: Levofloxacin500mg IV 500 MG/100 ML BAG IV SCH (20:38)
[2018-11-16] MEDS: CEFEPIME/SWI 1gm 10 ML IV SCH ×2 (01:00→07:52)
[2018-11-16 05:43] LABS: BUN Blood Urea Nitrogen 6 mg/dL (7-18); Bicarbonate 24 mmol/L (21-32); Glucose Level 104 mg/dL (74-106); Magnesium 2.1 mg/dL (1.8-2.4); Phosphorus 2.8 mg/dL (2.5-4.9); Potassium 3.6 mmol/L (3.5-5.1); Sodium Level 142 mmol/L (136-145)
[2018-11-16 05:50] LABS: Absolute Lymphocytes (CBC) 1.6 K/uL (0.7-4.9); Absolute Monocytes 0.9 K/uL (0.1-1.3); Absolute Neutrophil 7.1 K/uL (1.8-8.0); Basophils % 0.4 % (0-1.3); Eosinophils % 1.9 % (0-4.4); Lymphocytes % 16.1 % (15.3-44.8); MPV 8.1 fL (7.6-11.3); Monocytes % 9.1 % (3.3-12.3); RBC Red Blood Cell Count 4.32 M/uL (4.33-5.43)
[2018-11-16] MEDS: FENTANYL CITR 100 MCG/2 ML IV PRN ×2 (06:33→22:32)
[2018-11-16] MEDS: NA CHLORIDE 0.9% 1,000 ML IV SCH ×3 (06:33→20:09)
[2018-11-16] MEDS: PANTOPRAZOLE 40MG TABLET PO SCH (06:34)
[2018-11-16] MEDS: ENOXAPARIN 30 MG/0.3 ML SQ SCH (07:54)
--- NOTE | 2018-11-16 10:02 | P.PN ---
Subjective Date of Service: 11/16/18 Chief Complaint: UTI/systemic inflammatory response syndrome Pt seen and examined at bedside. Chart Reviewed. Denies fever, chills, N/V at this time Review of Systems 10-point ROS is otherwise unremarkable Physical Examination - Vital Signs Temperature: 97.5 F Blood Pressure: 148/89 Pulse: 80 Respirations: 12 Pulse Ox (%): 96 - Physical Exam General: Alert, In no apparent distress HEENT: Atraumatic, PERRLA, EOMI Neck: Supple, JVD not distended Respiratory: Clear to auscultation bilaterally, Normal air movement Cardiovascular: Regular rate/rhythm, Normal S1 S2 Gastrointestinal: Normal bowel sounds, No tenderness Musculoskeletal: Other (Paraplegic) Integumentary: No rashes Neurological: Normal speech, Normal tone, Normal affect Lymphatics: No axilla or inguinal lymphadenopathy - Studies Microbiology Data (last 24 hrs): 11/14/18 17:13 Clean Catch Urine Dazey Count - Final BETWEEN 10,000 & 100,000 CFU/ML 11/14/18 17:13 Clean Catch Urine - Final Serratia Marcescens Medications List Reviewed: Yes Assessment And Plan - Current Problems (Diagnosis) (1) Sepsis Onset Date: 04/22/17 Current Visit: No Status: Acute Plan: Sepsis 2.2 to UTI. -Elevated WBC and LA on Admission -Urine culture + for serrtia sensitive to Levaquin -Blood culture pending at this time -Will await Results Qualifiers: Sepsis type: sepsis due to unspecified organism Qualified Code(s): A41.9 - Sepsis, unspecified organism (2) UTI (urinary tract infection) Onset Date: 02/17/16 Current Visit: No Status: Acute Plan: H/o of recurrent UTI -Pt straight Caths due to be paraplegic -Urine culture + serretia -Switched Levaquin 500mg PO Qualifiers: Urinary tract infection type: catheter-associated UTI Indwelling urinary catheter type: unspecified Encounter type: subsequent encounter (3) HTN (hypertension) Onset Date: 04/22/17 Current Visit: No Status: Chronic Qualifiers: Hypertension type: essential hypertension (4) History of paraplegia Current Visit: No Status: Chronic (5) Obesity Onset Date: 06/27/17 Current Visit: No Status: Chronic (6) Tobacco abuse Onset Date: 06/27/17 Current Visit: No Status: Chronic - Plan Pending Improvement. Blood Culture pending will await results Discharge Plan: Home Plan to discharge in: 24 Hours - Code Status/Comfort Care Code Status Assessed: Yes Critical Care: No
[2018-11-16] MEDS ORDERED: levoFLOXacin 500 MG TAB PO SCH (18:00)
[2018-11-17] MEDS: FENTANYL CITR 100 MCG/2 ML IV PRN (05:32)
[2018-11-17] MEDS: PANTOPRAZOLE 40MG TABLET PO SCH (05:33)
[2018-11-17 06:16] LABS: Absolute Monocytes 0.7 K/uL (0.1-1.3); Absolute Neutrophil 5.4 K/uL (1.8-8.0); Basophils % 0.5 % (0-1.3); Eosinophils % 3.1 % (0-4.4); Hematocrit 36.8 % (39.6-49.0); MPV 7.5 fL (7.6-11.3); Monocytes % 8.2 % (3.3-12.3)
[2018-11-17 06:38] LABS: BUN Blood Urea Nitrogen 8 mg/dL (7-18); Bicarbonate 26 mmol/L (21-32); Glucose Level 99 mg/dL (74-106); Phosphorus 3.1 mg/dL (2.5-4.9); Potassium 3.4 mmol/L (3.5-5.1); Sodium Level 143 mmol/L (136-145)
[2018-11-17] MEDS: ENOXAPARIN 30 MG/0.3 ML SQ SCH (09:20)
[2018-11-17] MEDS: NA CHLORIDE 0.9% 1,000 ML IV SCH (09:20)
[2018-11-17 10:58] VITALS: O2SAT 97
--- NOTE | 2018-11-17 11:11 | P.DS ---
Admission Date: 11/14/18 Discharge Date: 11/17/18 Primary Care Provider: [facility] Disposition: ROUTINE DISCHARGE Discharge Condition: GOOD Reason for Admission: UTI/systemic inflammatory response syndrome Consultations: none Procedures: Medical Problem List: Sepsis secondary to recurrent UTI, urine culture positive for Serratia, complicated with history of paraplegia related to work injury, uses condom catheter Tobacco abuse Obesity, BMI 35 Brief History of Present Illness: 33-year-old male presented to the emergency room with fever. Patient with history of recurrent UTI with underlying paraplegia related to work related accident. Patient found to have sepsis. Patient admitted for treatment. Hospital Course: Patient presented with sepsis secondary to recurrent UTI. Patient with complicated history of paraplegia related to work injury in the distant past. Patient uses condom catheter. Patient was treated for sepsis. Urine culture positive for Serratia. Patient has done well with treatment. No further fever noted. White count improved. Patient remains stable at discharge. At discharge patient will continue with Levaquin 500 mg daily for 7 days. UTI prevention will be enforced. Patient will continue with condom catheter daily. [place] precautions will be taught. Patient will follow up with his PCP in 1-2 weeks to follow up this hospitalization. Tobacco cessation education will be provided. Lifestyle modification education will be provided at discharge. Vital Signs/Physical Exam: Temp Pulse Resp BP Pulse Ox 97.3 F 76 18 138/68 96 11/17/18 08:00 11/17/18 08:00 11/17/18 08:00 11/17/18 08:00 11/17/18 08:00 General: Alert, In no apparent distress, Oriented x3, Cooperative HEENT: Atraumatic Neck: Supple Respiratory: Clear to auscultation bilaterally, Normal air movement Cardiovascular: Normal pulses, Regular rate/rhythm Gastrointestinal: Normal bowel sounds, Soft and benign, Non-distended Other Physical/Emotional Findings: A condom catheter in place. Patient is wheelchair-bound. Laboratory Data at Discharge: WBC 8.5 K/uL (4.3-10.9) 11/17/18 05:57 Hgb 12.8 g/dL (13.6-17.9) L 11/17/18 05:57 Hct 36.8 % (39.6-49.0) L 11/17/18 05:57 Plt Count 281 K/uL (152-406) 11/17/18 05:57 Sodium 143 mmol/L (136-145) 11/17/18 05:57 Potassium 3.4 mmol/L (3.5-5.1) L 11/17/18 05:57 BUN 8 mg/dL (7-18) 11/17/18 05:57 Creatinine 0.57 mg/dL (0.55-1.3) 11/17/18 05:57 Glucose 99 mg/dL (74-106) 11/17/18 05:57 Phosphorus 3.1 mg/dL (2.5-4.9) 11/17/18 05:57 Magnesium 2.0 mg/dL (1.8-2.4) 11/17/18 05:57 Total Bilirubin 0.7 mg/dL (0.2-1.0) 11/14/18 17:25 AST 33 U/L (15-37) 11/14/18 17:25 ALT 51 U/L (12-78) 11/14/18 17:25 Alkaline Phosphatase 164 U/L (45-117) H 11/14/18 17:25 Home Medications: levoFLOXacin [Levaquin*] 500 mg PO DAILY 6PM #7 tab 11/17/18 New Medications: levoFLOXacin [Levaquin*] 500 mg PO DAILY 6PM #7 tab Patient Discharge Instructions: 1. Recommend to follow up with a PCP to establish care and follow up this hospitalization. 2. Patient presented with sepsis secondary to recurrent UTI. Patient with complicated history of paraplegia related to work injury in the distant past. Patient uses condom catheter. Patient was treated for sepsis. Urine culture positive for Serratia. Patient has done well with treatment. No further fever noted. White count improved. Patient remains stable at discharge. At discharge patient will continue with Levaquin 500 mg daily for 7 days. UTI prevention will be enforced. Patient will continue with condom catheter daily. [place] precautions will be taught. Patient will follow up with his PCP in 1-2 weeks to follow up this hospitalization. 3. Tobacco cessation education will be provided. Lifestyle modification education will be provided at discharge. Diet: AHA Activity: Fall precautions Time spent managing pt's care (in minutes): 55
[2018-11-17 13:38] VITALS: BP 144/81; TEMP 97.4
== END 2018-11-17 12:35 | disposition home or self-care (01) | DRG 872 ==
LOC: ER 15:20 → ERHOLD 20:46 → 4TH 21:34
PROVIDERS: ADMIT Hospitalist; ATTEND Hospitalist
DX: A41.9 Sepsis, unspecified organism (principal); N39.0 Urinary tract infection, site not specified; G82.20 Paraplegia, unspecified; E66.9 Obesity, unspecified; Z68.35 Body mass index [BMI] 35.0-35.9, adult; F17.210 Nicotine dependence, cigarettes, uncomplicated; Z99.3 Dependence on wheelchair
CPT/HCPCS: 36415; 80048; 80076; 81003; 81015; 82962; 83605; 83735; 84100; 84145; 85025; 87040; 87077; 87086; 87088; 87186; 94760; 96361; 96365; 96367; 96375; 99285; G0378; J0692; J0696; J1650; J2405; J3010; J7030

== ENCOUNTER 2021-04-17 06:24 | Emergency (ER) | payer OTHER ==
[2021-04-17 06:51] LABS: Absolute Lymphocytes (CBC) 2.1 K/uL (0.7-4.9); Basophils % 0.2 % (0-1.3); Hematocrit 46.7 % (39.6-49.0); Lymphocytes % 11.3 % (15.3-44.8); MPV 6.9 fL (7.6-11.3)
[2021-04-17] MEDS ORDERED: NA CHLORIDE 0.9% 2,000 ML ONE (07:00)
[2021-04-17] MEDS ORDERED: ACETAMINOPHEN 500 MG TAB ONE (07:00)
[2021-04-17 07:17] LABS: Protime INR 1.21
[2021-04-17] MEDS ORDERED: ONDANSETRON 4 MG/2 ML VIAL ONE ×2 (07:21→12:11)
[2021-04-17] MEDS ORDERED: MORPHINE 4 MG/ML SYR ONE ×3 (07:21→12:11)
[2021-04-17 07:23] LABS: ALT/SGPT 29 U/L (12-78); Albumin 3.3 g/dL (3.4-5.0); Alkaline Phosphatase 164 U/L (45-117); Amylase 57 U/L (25-115); BUN Blood Urea Nitrogen 10 mg/dL (7-18); Bicarbonate 27 mmol/L (21-32); Bilirubin Direct 0.1 mg/dL (0-0.2); Bilirubin Total 0.5 mg/dL (0.2-1.0); Creatine Phosphokinase 123 U/L (39-308); Glucose Level 106 mg/dL (74-106); Lipase 88 U/L (73-393); Protein, Total 8.8 g/dL (6.4-8.2); Sodium Level 138 mmol/L (136-145); Troponin (Emerg Dept Use Only) < 0.02 ng/mL (0.0-0.045)
[2021-04-17 07:24] LABS: AST/SGOT 21 U/L (15-37); CKMB Creatine Kinase MB < 1.0 ng/mL (1.0-3.6); Potassium 4.1 mmol/L (3.5-5.1)
[2021-04-17] MEDS ORDERED: CLINDAMYCIN 900MG/D5W 900 MG/50 ML IVPB IV ONE (07:41)
[2021-04-17] MEDS ORDERED: CEFEPIME 1 GM/VIAL ONE (07:41)
[2021-04-17] MEDS ORDERED: NA CHLORIDE 0.9% 100 ML ONE (07:41)
[2021-04-17] MEDS ORDERED: Levofloxacin 750mg IV 750 MG/150 ML BAG IV ONE (07:42)
--- NOTE | 2021-04-17 08:03 | RAD REPORT ---
EXAM DESCRIPTION: CT - Abdomen Pelvis W Contrast - 04/17/2021 7:43 am CLINICAL HISTORY: ABD PAIN COMPARISON: Abdomen Pelvis W Contrast dated 09/28/2018; Scrotum Testicles dated 04/17/2021 TECHNIQUE: Biphasic, helical CT imaging of the abdomen and pelvis was performed following 100 ml non -ionic IV contrast. No oral contrast administered. All CT scans are performed using dose optimization technique as appropriate and may include automated exposure control or mA/KV adjustment according to patient size. FINDINGS: No suspicious findings in the lung bases. The liver, spleen, and pancreas show no suspicious findings. Gallbladder and biliary tree are also wi thout suspicious finding. Symmetric renal function is seen with no hydronephrosis or suspicious renal mass. No pyelonephritis o r acute parenchymal process. No bladder abnormalities. No adrenal abnormalities. Imaging included the scrotum where an enlarged enhancing left epididymis was seen. This epididymitis pattern matches the separately reported ultrasound. Fat extends in the origin of each inguinal canal. No bowel involvemen t. No dilated bowel loops or bowel wall thickening. Appendix is normal. No free air, free fluid or pneum atosis. No mass or bulky lymphadenopathy. Psoas and paraspinal musculature show atrophy changes. Muscles of the pelvis are also atrophic compar ed to what is typically seen. No bone destructive changes are seen. There is increased soft tissue be tween the left ischium and the skin surface. Correlation can be made with physical exam findings rega rding left lower gluteal decubitus ulcer and associated inflammatory change. IVC filter in place. IMPRESSION: Left epididymitis pattern is identified matching the CT finding. Increased soft tissue between the lower left gluteal skin surface and the left ischium. Correlation i s needed with any decubitus ulcer findings. No bone destruction identifiable.
[2021-04-17 08:35] LABS: Urine Blood 2+ (Negative); Urine Glucose Negative (Negative); Urine Protein Negative (Negative)
--- NOTE | 2021-04-17 08:35 | RAD REPORT ---
EXAM DESCRIPTION: RAD - Chest Single View - 04/17/2021 8:02 am CLINICAL HISTORY: FEVER COMPARISON: June 2017 TECHNIQUE: AP portable chest image was obtained 04/17/2021 8:02 am . FINDINGS: No mass or consolidation. Interstitial markings are accentuated by shallow inspiration. In terstitial pattern is not clearly different when adjusting for technique. Minimal interstitial infilt rate is still possible given the baseline pattern. Heart and vasculature are normal. No measurable pl eural effusion and no pneumothorax. No acute bony abnormality seen. No acute aortic findings suspecte d. IMPRESSION: No focal consolidation to suspect bacterial pneumonia. Chest pattern does not raise susp icion for COVID-19 pneumonia. Slight increase in bibasilar opacification present. This is not clearly different from comparison but could potentially mask very minimal interstitial infiltrate.
--- NOTE | 2021-04-17 08:54 | ER ---
Nurse's Notes [facility] Name: Aidan East Age: 36 yrs Sex: Male : 1985 Arrival Date: 04/17/2021 Time: 06:26 Bed 8 Private MD: Diagnosis: UTI/ Urinary tract infection, site not specified;Epididymitis Presentation: 04/17 06:20 Chief complaint: EMS states: Called for patient with complaint of fever, chills, lp1 shaking; Reports hx of sepsis related to urine; Patient has partial paralysis, condom catheter in place; reports testicular swelling that began yesterday. 06:20 Coronavirus screen: chills, fever. Ebola Screen: No symptoms or risks identified at [facility] this time. Initial Sepsis Screen: Does the patient meet any 2 criteria? Temp <36.0*C (96.8*F)) or > 38.3*C (100.9*F). HR > 90 bpm. Yes Does the patient have a suspected source of infection? Yes: Catheter related infection ([place]/dialysis/PICC/central line). Risk Assessment: Do you want to hurt yourself or someone else? Patient reports no desire to harm self or others. Onset of symptoms was April 17, 2021. 06:20 Method Of Arrival: EMS: [place] [id number] 06:20 Acuity: SPIKE 2 lp1 Historical: - Allergies: 06:50 No Known Allergies; lp1 - Home Meds: 06:50 None [Active]; lp1 - PMHx: 06:50 paraplegic; UTI; lp1 - PSHx: 06:50 T12 surgery; lp1 - Immunization history:: Adult Immunizations up to date. - Social history:: Smoking status: Patient reports the use of cigarette tobacco products, smokes one-half pack cigarettes per day. Screenin:51 Abuse screen: Denies threats or abuse. Denies injuries from another. Nutritional lp1 screening: No deficits noted. Tuberculosis screening: No symptoms or risk factors identified. Fall Risk Total Kuhn Fall Scale indicates High Risk Score (45 or more points). Fall prevention measures have been instituted. Side Rails Up X 2 Frequent Obs/Assessments Occuring As available patient and family educated on Fall Prevention Program and Strategies. Assessment: 06:45 General: Appears ill, Behavior is appropriate for age. Pain: Complains of pain in lp1 abdomen Pain currently is 7 out of 10 on a pain scale. Quality of pain is described as sharp. Neuro: Level of Consciousness is awake, alert, obeys commands, Oriented to person, place, situation. Cardiovascular: Patient's skin is warm and dry. Respiratory: Respiratory effort is even, Respiratory pattern is regular, Breath sounds are clear bilaterally. GI: Abdomen is round Reports nausea. : condom catheter in place Reports burning with urination, pain in suprapubic area left testicular swelling. EENT: No signs and/or symptoms were reported regarding the EENT system. Derm: Skin is intact, Skin is dry, Skin is normal. Musculoskeletal: paralysis to lower extremities. 07:37 Reassessment: Pt to CT via stretcher. jl7 08:45 Reassessment: JANUARY Zayas at bedside discussing results and POC. jl7 11:52 Reassessment: [facility] AT B/S FOR TRANSPORT. bp Vital Signs: 06:20 BP 151 / 88; Pulse 120; Resp 19; Temp 101.5(O); Pulse Ox 100% on R/A; Weight 116.12 kg lp1 (R); Height 6 ft. 2 in. (187.96 cm); Pain 7/10; 07:30 BP 137 / 89; Pulse 118; Resp 19; Pulse Ox 97% ; jl7 08:05 BP 128 / 85; Pulse 112; Resp 15; Temp 100.6; Pulse Ox 99% ; Pain 7/10; jl7 08:45 BP 130 / 73; Pulse 117; Resp 15; Pulse Ox 99% ; jl7 09:30 BP 134 / 88; Pulse 122; Resp 15; Temp 100.7; Pulse Ox 100% ; jl7 10:00 BP 146 / 91; Pulse 130; Resp 19; Temp 102.7; Pulse Ox 99% on R/A; jl7 10:45 BP 163 / 86; Pulse 130; Resp 15; Pulse Ox 99% ; jl7 11:15 BP 148 / 84; Pulse 130; Resp 15; Pulse Ox 97% ; jl7 06:20 Body Mass Index 32.87 (116.12 kg, 187.96 cm) lp1 ED Course: 06:26 Patient arrived in ED. wm 06:28 Marquez Mustafa NP is PHCP. pm1 06:28 Yobany Lord MD is Attending Physician. pm1 06:35 Inserted saline lock: 20 gauge in right antecubital area, using aseptic technique. lp1 Blood collected. 06:35 First set of blood cultures drawn. lp1 06:47 Arm band placed on. lp1 06:50 Triage completed. lp1 06:51 Patient has correct armband on for positive identification. Bed in low position. lp1 court monitor on. Pulse ox on. NIBP on. 07:06 Delon Santiago RN is Primary Nurse. jl7 07:30 Bladder scan completed. 563. jl7 07:43 CT Abd/Pelvis - IV Contrast Only In Process Unspecified. EDMS 08:01 Chest Single View XRAY In Process Unspecified. EDMS 08:10 [place] cath inserted, using sterile technique, 16 Fr., by wi, balloon inflated, to jl7 gravity drainage, urine specimen collected. returned cloudy urine. Patient tolerated well. 08:10 Urine collected: [place] catheter specimen, cloudy. jl7 08:30 Inserted saline lock: 22 gauge in right hand, using aseptic technique. jl7 08:38 Attending Physician role handed off by Yobany Lord MD kdr 08:38 Angelo Lopez MD is Attending Physician. kdr 08:50 US Scrotum Testicles In Process Unspecified. EDMS 10:38 Inserted saline lock: 22 gauge in left hand, using aseptic technique. jl7 12:26 No provider procedures requiring assistance completed. Patient transferred, IV remains jl7 in place. intact, No redness/swelling at site. Administered Medications: 06:35 Drug: Acetaminophen 1000 mg Route: PO; lp1 08:53 Follow up: Response: No adverse reaction; Temperature is decreased jl7 06:48 Drug: NS 0.9% (30 ml/kg) 30 ml/kg Route: IV; Rate: bolus; Site: right antecubital; lp1 07:00 Drug: morphine 4 mg Route: IVP; Site: right antecubital; lp1 07:34 Follow up: Response: No adverse reaction; Pain is decreased jl7 07:01 Drug: Zofran (Ondansetron) 4 mg Route: IVP; Site: right antecubital; lp1 07:34 Follow up: Response: No adverse reaction jl7 07:25 Drug: Clindamycin 900 mg Route: IVPB; Infused Over: 30 mins; Site: right antecubital; jl7 07:35 Follow up: IV Pause: 04/17/2021 07:35; IV Pause Reason: Patient to CT jl7 07:50 Follow up: IV Resume: 04/17/2021 07:50; IV Resume Reason: Patient returned from CT jl7 08:10 Follow up: Response: No adverse reaction; IV Status: Completed infusion jl7 08:10 Follow up: IV Intake: 50ml jl7 07:58 Drug: NS 0.9% (30 ml/kg) 30 ml/kg Route: IV; Rate: bolus; Site: right antecubital; jl7 11:51 Follow up: IV Status: Completed infusion; IV Intake: 3500ml bp 08:10 Drug: morphine 4 mg Route: IVP; Site: right antecubital; jl7 08:45 Follow up: Response: No adverse reaction; Pain is decreased jl7 08:20 Drug: Cefepime 1 grams Route: IVPB; Rate: 200 ml/hr; Infused Over: 30 mins; Site: right jl7 antecubital; 08:50 Follow up: IV Status: Completed infusion jl7 08:50 Follow up: IV Intake: 100ml jl7 08:30 Drug: LevaQUIN (levofloxacin) 750 mg Volume: 150 ml; Route: IVPB; Infused Over: 90 jl7 mins; Site: right antecubital; 09:59 Follow up: Response: No adverse reaction; IV Status: Completed infusion jl7 09:59 Follow up: IV Intake: 150ml jl7 10:17 Drug: Ibuprofen 800 mg Route: PO; jl7 11:50 Follow up: Response: Temperature is unchanged bp 12:25 Follow up: Response: No adverse reaction jl7 10:35 Drug: NS 0.9% 1000 ml Route: IV; Rate: 125 ml/hr; Site: left hand; jl7 11:51 Follow up: IV Status: Infusion continued upon transfer bp 12:25 Follow up: IV Status: Infusion continued upon transfer jl7 11:49 Drug: morphine 4 mg Route: IVP; Site: right hand; bp 12:25 Follow up: Response: Medication administered at discharge. jl7 11:50 Drug: Zofran (Ondansetron) 4 mg Route: IVP; Site: right hand; bp 12:25 Follow up: Response: No adverse reaction jl7 Intake: 08:10 IV: 50ml; Total: 50ml. jl7 08:50 IV: 100ml; Total: 150ml. jl7 09:59 IV: 150ml; Total: 300ml. jl7 11:51 IV: 3500ml; Total: 3800ml. bp Outcome: 08:54 ER care complete, transfer ordered by . pm1 12:26 Transferred by ground EMS to [facility], Transfer form completed. jl7 X-rays sent w/ patient. 12:26 Condition: stable 12:26 Discharge instructions given to patient, Instructed on the need for transfer, Demonstrated understanding of instructions. 12:26 Patient left the ED. jl7 Signatures: Dispatcher [employer] EDMS Angelo Lopez MD MD [facility] Katt Chau RN RN lp1 Marquez Mustafa, JANUARY INTERACTIVE DEVELOPER pm1 Delon Santiago RN RN jl7 Matthew Kennedy RN RN Yeni Rubin Corrections: (The following items were deleted from the chart) 09:58 08:45 LevaQUIN (levofloxacin) 750 mg 150 ml IVPB in right antecubital over 90 mins 150 jl7 ml jl7 09:58 08:00 LevaQUIN (levofloxacin) 750 mg 150 ml IVPB in right antecubital over 90 mins 150 jl7 ml jl7
--- NOTE | 2021-04-17 08:55 | EDPHYS ---
Physician Documentation [facility] Name: Aidan East Age: 36 yrs Sex: Male : 1985 Arrival Date: 04/17/2021 Time: 06:26 Bed 8 Private MD: ED Physician Angelo Lopez HPI: 04/17 07:01 This 36 yrs old Male presents to ER via EMS with complaints of Testicular pm1 Swelling. 07:01 The patient presents with swelling, of the left testicle, tenderness, of the left pm1 testicle. Onset: The symptoms/episode began/occurred yesterday. Modifying factors: The symptoms are alleviated by nothing, the symptoms are aggravated by nothing. Associated signs and symptoms: Pertinent positives: abdominal pain, Chills, Pertinent negatives: diarrhea, dysuria, nausea, vomiting. Severity of symptoms: in the emergency department the symptoms are actually worse. The patient has experienced similar episodes in the past, a few times. The patient has not recently seen a physician. Historical: - Allergies: 06:50 No Known Allergies; lp1 - Home Meds: 06:50 None [Active]; lp1 - PMHx: 06:50 paraplegic; UTI; lp1 - PSHx: 06:50 T12 surgery; lp1 - Immunization history:: Adult Immunizations up to date. - Social history:: Smoking status: Patient reports the use of cigarette tobacco products, smokes one-half pack cigarettes per day. ROS: 07:01 Cardiovascular: Negative for chest pain, palpitations, and edema, Respiratory: Negative pm1 for shortness of breath, cough, wheezing, and pleuritic chest pain. 07:01 Back: Negative for injury and pain. 07:01 MS/Extremity: Negative for injury and deformity, Skin: Negative for injury, rash, and discoloration. 07:01 Constitutional: Positive for chills, Negative for poor PO intake. 07:01 Abdomen/GI: Positive for abdominal pain, of the suprapubic area, Negative for nausea, vomiting, and diarrhea. 07:01 : Positive for testicular pain and swelling to left testicle, Negative for urinary symptoms, flank pain. 07:01 All other systems are negative. Exam: 07:01 Constitutional: This is a well developed, well nourished patient who is awake, alert, pm1 and in no acute distress. Head/Face: Normocephalic, atraumatic. 07:01 Back: No spinal tenderness. No costovertebral tenderness. Full range of motion. Skin: Warm, dry with normal turgor. Normal color with no rashes, and no evidence of cellulitis. 07:01 Eyes: Exam is negative for acute changes, Extraocular movements: intact throughout, Sclera: no acute changes, icterus, is not appreciated. 07:01 ENT: Exam is negative for acute changes, Mouth: no acute changes, Lips: normal, moist, Oral mucosa: normal, pink and intact, moist. 07:01 Cardiovascular: Rate: tachycardic, Rhythm: regular, Pulses: no pulse deficits are appreciated, Heart sounds: normal, normal S1and S2, Edema: is not appreciated. 07:01 Respiratory: Exam negative for acute changes, respiratory distress, shortness of breath, Breath sounds: are clear throughout. 07:01 Abdomen/GI: Inspection: abdomen appears normal, Palpation: soft, in all quadrants, mild abdominal tenderness, in the suprapubic area. 07:39 : Bladder: tenderness, suprapubic area, 563 mL. pm1 08:42 Skin: Appearance: normal except for affected area, Stage two pressure ulcer present to pm1 upper left buttocks 3 cm x 2 cm. 3 sub-centimeter stage two pressure ulcers present to coccyx area. No surrounding cellulitis present or discharge from pressure ulcers. Vital Signs: 06:20 BP 151 / 88; Pulse 120; Resp 19; Temp 101.5(O); Pulse Ox 100% on R/A; Weight 116.12 kg lp1 (R); Height 6 ft. 2 in. (187.96 cm); Pain 7/10; 07:30 BP 137 / 89; Pulse 118; Resp 19; Pulse Ox 97% ; jl7 08:05 BP 128 / 85; Pulse 112; Resp 15; Temp 100.6; Pulse Ox 99% ; Pain 7/10; jl7 08:45 BP 130 / 73; Pulse 117; Resp 15; Pulse Ox 99% ; jl7 09:30 BP 134 / 88; Pulse 122; Resp 15; Temp 100.7; Pulse Ox 100% ; jl7 10:00 BP 146 / 91; Pulse 130; Resp 19; Temp 102.7; Pulse Ox 99% on R/A; jl7 10:45 BP 163 / 86; Pulse 130; Resp 15; Pulse Ox 99% ; jl7 11:15 BP 148 / 84; Pulse 130; Resp 15; Pulse Ox 97% ; jl7 06:20 Body Mass Index 32.87 (116.12 kg, 187.96 cm) lp1 MDM: 06:28 Patient medically screened. pm1 07:48 Data reviewed: vital signs. Data interpreted: Pulse oximetry: on room air is 97 %. pm1 Interpretation: normal. 08:38 ED course: I reviewed the lab data and patient presentation with the ELIESER provider. We kdr discussed the need for admission versus transfer. Since we do not have urology salesperson terrazzo tiles today, we will need to transfer the patient for observation and further evaluation and treatment. 08:48 Counseling: I had a detailed discussion with the patient and/or guardian regarding: the pm1 historical points, exam findings, and any diagnostic results supporting the discharge/admit diagnosis, lab results, radiology results, the need to transfer to another facility, [facility] does not immediately have the required specialist, No urology present. 08:48 Differential diagnosis: nonspecific abdominal pain, UTI, urinary retention, [place] pm1 catheter problem, epididymitis, torsion. 09:57 Physician consultation: MD Soriano was contacted at 09:57, regarding regarding transfer, pm1 patient's condition, and will see patient. 18:18 ED course: Contact phone for urologist [phone] for blood and urine cultures. pm1 04/17 06:31 Order name: Amylase, Serum; Complete Time: 07:43 pm1 04/17 06:31 Order name: Basic Metabolic Panel; Complete Time: 07:43 pm1 04/17 06:31 Order name: Blood Culture Adult (2) pm1 04/17 06:31 Order name: CBC with Diff; Complete Time: 06:55 pm1 04/17 06:31 Order name: CPK; Complete Time: 07:43 pm1 04/17 06:31 Order name: Ckmb; Complete Time: 07:43 pm1 04/17 06:31 Order name: LFT's; Complete Time: 07:43 pm1 04/17 06:31 Order name: Lactate; Complete Time: 07:43 pm1 04/17 06:31 Order name: Lipase; Complete Time: 07:43 pm1 10/11 06:31 Order name: Procalcitonin; Complete Time: 07:55 pm1 04/17 06:31 Order name: Protime (+inr); Complete Time: 07:43 pm1 04/17 06:31 Order name: Ptt, Activated; Complete Time: 07:43 pm1 04/17 06:31 Order name: Troponin (emerg Dept Use Only); Complete Time: 07:43 pm1 04/17 06:31 Order name: Urine Culture pm1 04/17 06:29 Order name: US Scrotum Testicles; Complete Time: 09:07 pm1 04/17 06:31 Order name: Urine Microscopic Only; Complete Time: 10:13 pm1 04/17 06:31 Order name: Chest Single View XRAY; Complete Time: 08:41 pm1 04/17 06:35 Order name: CT Abd/Pelvis - IV Contrast Only; Complete Time: 08:10 pm1 04/17 08:35 Order name: Urine Dipstick-Ancillary; Complete Time: 08:41 EDMS 04/17 09:06 Order name: SARS-COV-2 RT PCR; Complete Time: 10:13 EDMS 04/17 06:31 Order name: Accucheck; Complete Time: 07:34 pm1 04/17 06:31 Order name: Cardiac monitoring; Complete Time: 06:46 pm1 04/17 06:31 Order name: Cath; Complete Time: 08:55 pm1 04/17 06:31 Order name: EKG - Nurse/Tech; Complete Time: 06:46 pm1 04/17 06:31 Order name: IV Saline Lock - Large Bore; Complete Time: 06:46 pm1 04/17 06:31 Order name: Labs collected and sent; Complete Time: 06:46 pm1 04/17 06:31 Order name: O2 Per Protocol; Complete Time: 06:46 pm1 04/17 06:31 Order name: O2 Sat Monitoring; Complete Time: 06:46 pm1 04/17 06:31 Order name: Urine Dipstick-Ancillary (obtain specimen); Complete Time: 08:37 pm1 04/17 06:34 Order name: Bladder Scanner; Complete Time: 07:35 pm1 04/17 09:25 Order name: NPO; Complete Time: 09:27 pm1 Administered Medications: 06:35 Drug: Acetaminophen 1000 mg Route: PO; lp1 08:53 Follow up: Response: No adverse reaction; Temperature is decreased jl7 06:48 Drug: NS 0.9% (30 ml/kg) 30 ml/kg Route: IV; Rate: bolus; Site: right antecubital; lp1 07:00 Drug: morphine 4 mg Route: IVP; Site: right antecubital; lp1 07:34 Follow up: Response: No adverse reaction; Pain is decreased jl7 07:01 Drug: Zofran (Ondansetron) 4 mg Route: IVP; Site: right antecubital; lp1 07:34 Follow up: Response: No adverse reaction jl7 07:25 Drug: Clindamycin 900 mg Route: IVPB; Infused Over: 30 mins; Site: right antecubital; jl7 07:35 Follow up: IV Pause: 04/17/2021 07:35; IV Pause Reason: Patient to CT jl7 07:50 Follow up: IV Resume: 04/17/2021 07:50; IV Resume Reason: Patient returned from CT jl7 08:10 Follow up: Response: No adverse reaction; IV Status: Completed infusion jl7 08:10 Follow up: IV Intake: 50ml jl7 07:58 Drug: NS 0.9% (30 ml/kg) 30 ml/kg Route: IV; Rate: bolus; Site: right antecubital; jl7 11:51 Follow up: IV Status: Completed infusion; IV Intake: 3500ml bp 08:10 Drug: morphine 4 mg Route: IVP; Site: right antecubital; jl7 08:45 Follow up: Response: No adverse reaction; Pain is decreased jl7 08:20 Drug: Cefepime 1 grams Route: IVPB; Rate: 200 ml/hr; Infused Over: 30 mins; Site: right jl7 antecubital; 08:50 Follow up: IV Status: Completed infusion jl7 08:50 Follow up: IV Intake: 100ml jl7 08:30 Drug: LevaQUIN (levofloxacin) 750 mg Volume: 150 ml; Route: IVPB; Infused Over: 90 jl7 mins; Site: right antecubital; 09:59 Follow up: Response: No adverse reaction; IV Status: Completed infusion jl7 09:59 Follow up: IV Intake: 150ml jl7 10:17 Drug: Ibuprofen 800 mg Route: PO; jl7 11:50 Follow up: Response: Temperature is unchanged bp 12:25 Follow up: Response: No adverse reaction jl7 10:35 Drug: NS 0.9% 1000 ml Route: IV; Rate: 125 ml/hr; Site: left hand; jl7 11:51 Follow up: IV Status: Infusion continued upon transfer bp 12:25 Follow up: IV Status: Infusion continued upon transfer jl7 11:49 Drug: morphine 4 mg Route: IVP; Site: right hand; bp 12:25 Follow up: Response: Medication administered at discharge. jl7 11:50 Drug: Zofran (Ondansetron) 4 mg Route: IVP; Site: right hand; bp 12:25 Follow up: Response: No adverse reaction jl7 Disposition: 04/18 08:38 Co-signature as Attending Physician, Angelo Lopez MD I agree with the assessment and kdr plan of care. Disposition Summary: 04/17/21 08:54 Transfer Ordered Transfer Location: Other Acute Care Facility pm1 Reason: Specialty pm1 Condition: Stable pm1 Problem: new pm1 Symptoms: have improved pm1 Accepting Physician: (04/17/21 12:26) jl7 Diagnosis - UTI/ Urinary tract infection, site not specified pm1 - Epididymitis pm1 Forms: - Medication Reconciliation Form pm1 - SBAR form pm1 Signatures: Dispatcher [employer] EDAngelo Machado MD MD kdr Katt Chau RN RN lp1 Marquez Mustafa, CONCERT MANAGER CONCERT MANAGER pm1 Delon Santiago RN RN jl7 Matthew Kennedy RN RN bp Corrections: (The following items were deleted from the chart) 04/17 08:48 08:42 Skin: Appearance: normal except for affected area, Stage two pressure ulcer pm1 present to upper left buttocks 3 cm x 2 cm. 3 sub-centimeter stage two pressure ulcers present to coccyx area. pm1 09:07 07:59 CORONAVIRUS+MR.LAB.RUBENZ ordered. EDMS EDMS 12:26 08:54 pmHugo jl7
--- NOTE | 2021-04-17 08:59 | RAD REPORT ---
EXAM DESCRIPTION: US - Scrotum Testicles - 04/17/2021 8:50 am CLINICAL HISTORY: Swelling;Pain COMPARISON: Scrotum Testicles dated 08/12/2018 FINDINGS: Testicular microlithiasis noted. In the central portion of the right testicle there is a 5 mm hypoechoic focus present. On review of prior imaging this was questionably present. No other righ t intratesticular abnormality seen. Blood flow was unremarkable. No left testicular mass. No abnormal blood flow within the left testicle. No right epididymis abnormality. Left epididymis is enlarged and hyperemic. Small left hydrocele is p resent. IMPRESSION: Left epididymitis. Small 5 mm hypoechoic focus in the central right testicle is identified and was questionably present on the 2019 comparison with no change in size. True or worrisome right testicular mass is felt to be unlikely. However, follow-up sonography as emerson anted with re-evaluation in 6 months recommended.
[2021-04-17 09:58] LABS: Urine Bacteria LOADED /HPF (NONE SEEN); Urine Mucus 1+ /HPF (NONE SEEN); Urine Urothelial Cells <5 /HPF (NONE SEEN)
[2021-04-17] MEDS ORDERED: NA CHLORIDE 0.9% 1,000 ML ONE (10:28)
[2021-04-17] MEDS ORDERED: IBUPROFEN 400 MG TAB ONE (10:38)
[2021-04-17 12:43] VITALS: TEMP 102.7
[2021-04-17 12:46] VITALS: BP 148/84; O2SAT 97
--- NOTE | 2021-04-19 16:41 | EKG ---
Test Date: 2021-04-17 Test Time: 06:35:22 Liquid Compounder: CONY MEASUREMENT RESULTS: Intervals: Rate: 118 UT: 170 QRSD: 100 QT: 312 QTc: 437 [place]: P: 47 UT: 170 QRS: 97 T: 40 INTERPRETIVE STATEMENTS: Sinus tachycardia Possible Left atrial enlargement Rightward axis Inferior infarct, age undetermined Abnormal ECG Compared to ECG 02/17/2016 04:45:28 Right-axis deviation now present Myocardial infarct finding now present ST (T wave) deviation no longer present Electronically Signed On 04-19-21 16:36:16 CDT by Yaya Frias
== END 2021-04-17 12:26 ==
LOC: ER 06:24
DX: N45.1 Epididymitis (principal); N39.0 Urinary tract infection, site not specified; F17.210 Nicotine dependence, cigarettes, uncomplicated; Z20.822 Contact with and (suspected) exposure to COVID-19
CPT/HCPCS: 93005; 87040 ×2; 87088; 85025; 87086; 80048; 36415; 82150; 82550; 85610; 80076; 83605; 85730; 87077; 87186; 84484; 82553; 83690; 84145; 74177; 71045; 76870; 51702; 99285; U0003; Q9967; J7030 ×2; J2405 ×2; J0692; 81003; 81015; 96361; 96365; 96367; 96368; 96375

== ENCOUNTER 2022-03-14 00:10 | Inpatient (IN) | payer OTHER ==
--- OUTSIDE RECORDS SUMMARY | 2022-03-14 00:15 | XMS REPORT | Continuity of Care Document ---
:1985 Author Organization [facility] t Address [address] [place] [place] [address] Care Team Providers Name Role Phone Gabriella Giles Primary Care Physician Thee Stein MD Attending Clinician MEGAN PARKER Attending Clinician Unavailable Christie CONNOR, Paulie Attending Clinician Indu Gambino MD Attending Clinician Megan Parker MD Attending Clinician PAULIE SORIANO Attending Clinician Unavailable INDU GAMBINO Admitting Clinician Unavailable Payers Payer Name Policy Type Policy Number Effective Date Expiration Date maryam [facility] [id number] 2021 00:00:00 PLAN Problems Condition Condition Condition Status Onset Resolution Last Treating Co mments Source Name Details Category Date Date Treatment Clinician Date 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 Added automatic ally from request for surgery [id number] History of History of Disease Active U nivers paraplegia paraplegia 1-13 it y of 00:00: [place] 00 Medical Branch Infection Infection Disease Active Uni vers due to due to 1-11 ity of ESBL-produ [place]BL[place]produ [place] Medical [place] Br anch a coli a coli Pressure Pressure Disease Active 2020-07 Unive rs ulcer ulcer 2-27 ity of 00:00: [place] [address] Medical Branch Epididymit Epididymit Disease Active 2020-[address] [facility] is 0-11 [facility] 00:[facility]: [address] Obesity Obesity Disease Active 2016-07 Univers 2-21 ity of 00:00: [place] 00 Medical Branch Tobacco Tobacco Disease Active 2016-07 Univers abuse abuse 2-21 ity of 00:00: [place] 00 Medical Branch HTN HTN Disease Active 2016-07 Univers (hypertens (hypertens 0-16 it y of ion) ion) 00:00: [place] 00 Medical Branch Sepsis Sepsis Disease Active 2016-07 Univers 0-16 ity of 00:00: [place] [facility] Bacteremia Bacteremia Disease Active 2016-07 U nivers 0-16 ity of 00:00: [place] 00 Medical Branch Ureteritis Ureteritis Disease Active U nivers 8-12 ity of 00:00: [place] [address] Medical Branch UTI UTI Disease Active Univers (urinary (urinary 6-22 ity of tract tract 00:00: [place] infection) infection) 00 Ks dical Branch Fever Fever Disease Active Univers 6-22 ity of 00:00: [place] [address] Medical Branch Leukocytos Leukocytos Disease Active U nivers is is 6-22 ity of 00:00: [place] [address] Medical Branch Allergies, Adverse Reactions, Alerts Allergy Allergy Status Severity Reaction(s) Onset Inactive Treating Comm ents Source Name Type Date Date Clinician NO KNOWN Allergy Active [facility] Social History Social Habit Start Date Stop Date Quantity Comments Source History of 2022-02-20 Cigarette Smoker Universi ty of tobacco use 00:00:00 [place] [facility] History SDOH University o f Alcohol Frequency [place] M edical Branch History SDOH University o f Alcohol Std [place] Medical Drinks Branch History SDOH University o f Alcohol Binge [place] Medic al Branch Exposure to 2022-02-13 2022-02-23 Not sure University of SARS-CoV-2 00:00:00 16:02:00 [facility] (event) Branch Tobacco Comment 2022-01-25 2022-01-25 3 cigarettes Univers ity of 00:00:00 00:00:00 daily. Stopped [place] Medi jd 07/18/21. Branch Tobacco use and 2021-04-17 2021-04-[address] Nora kes exposure 00:00:00 00:00:00 [facility] Alcohol intake 2021-04-17 2021-04-17 Ex-drinker GENEVIEVE St Jennifer es 00:00:00 00:00:00 (finding) [facility] Alcohol Comment 2017-06-17 2017-06-17 3 per week Universit y of 00:00:00 00:00:00 [facility] Sex Assigned At [birth year] GENEVIEVE Veras kes 00:00:00 00:00:00 [facility] Center Smoking Status Start Date Stop Date Source Smokes tobacco daily 2022-02-22 00:00:00 Univers ity of [facility] Never smoker GENEVIEVE Veraskeyona [facility] Center Medications Ordered Filled Start Stop Current Ordering Indication Dosage Frequency Signature Comments Components Source Medication Medication Date Date Medication? Clinician (SIG) Name Name [facility] Yes [id number] Apply to [place] [address] [phone] [id number] affected ity of unit/gram 00:00: area(s) [place] ointment 00 daily. Medical Branch ciprofloxac 2020-07- No 500mg Q.5D Take [address] in HCl 0-15 10-25 tablet [facility] (CIPRO) 500 00:00: 23:59 (500 mg Me dical MG tablet 00 :00 total) by Cente r mouth 2 (two) times daily for 10 days. Vital Signs Vital Name Observation Time Observation Value Comments Source HEIGHT 2021-04-18 08:11:00 188 cm WEIGHT 2021-04-18 08:11:00 113.399 kg HEIGHT 2021-04-18 08:11:00 188 cm WEIGHT 2021-04-18 08:11:00 113.399 kg HEIGHT 2021-04-18 08:11:00 188 cm WEIGHT 2021-04-18 08:11:00 113.399 kg Oxygen saturation in 2021-04-20 15:12:00 93 /min GENEVIEVE [facility]ley Arterial blood by Medical Ce nter Pulse oximetry Systolic blood 2021-04-20 15:12:00 121 mm[Hg] GENEVIEVE [facility] pressure [facility] Diastolic blood 2021-04-20 15:12:00 66 mm[Hg] [facility] Heart rate 2021-04-20 15:12:00 87 /min [facility] Body temperature 2021-04-20 15:12:00 35.72 Emma [facility] Respiratory rate 2021-04-20 15:12:00 18 /min [facility] Body height 2021-04-18 08:11:00 188 cm [facility] Body weight 2021-04-18 08:11:00 113.399 kg [facility] BMI 2021-04-18 08:11:00 32.10 kg/m2 [facility] Procedures Procedure Date / Time Performed Performing Clinician [facility] e ECG 12-LEAD 2021-04-20 08:11:57 Unknown, Hl7 Doctor [facility] ECG 12-LEAD 2021-04-20 08:11:57 Unknown, Hl7 Doctor [facility] CBC W/PLT COUNT & AUTO 2021-04-20 05:25:00 Ruel Flores [facility] BASIC METABOLIC PANEL (7) 2021-04-20 05:25:00 Halina Flores [facility] CBC W/PLT COUNT & AUTO 2021-04-20 05:25:00 Ruel Flores [facility] CBC W/PLT COUNT & AUTO 2021-04-19 05:28:00 Ruel Flores [facility] BASIC METABOLIC PANEL (7) 2021-04-19 05:28:00 Halina Flores [facility] CBC W/PLT COUNT & AUTO 2021-04-19 05:28:00 Ruel Flores [facility] STD PANEL - CT/GC RNA 2021-04-18 10:18:00 Indu Gambino [facility] ALPHA FETOPROTEIN (AFP), 2021-04-18 10:17:00 Pushpa Jacobsen [facility] TUMOR MARKER [facility] CBC W/PLT COUNT & AUTO 2021-04-18 05:15:00 Ruel Flores [facility] COMPREHENSIVE METABOLIC 2021-04-18 05:15:00 Ruel Flores [facility] LAB HIV-1 AG W/HIV-1&2 2021-04-18 05:15:00 Halina Flores [facility] RPR 2021-04-18 05:15:00 Ruel Flores [facility] HEPATITIS PANEL, ACUTE 2021-04-18 05:15:00 Ruel Flores [facility] LACTATE DEHYDROGENASE 2021-04-18 05:15:00 [place] (LDH) [facility] HCG, QUANTITATIVE, 2021-04-18 05:15:00 Delmar Push[facility] CBC W/PLT COUNT & AUTO 2021-04-18 05:15:00 Ruel Flores [facility] (CELLAVISION MANUAL DIFF) 2021-04-18 05:15:00 [facility] Plan of Care Planned Activity Planned Date Details Comments Source Future Scheduled 2022-03-[address] [facility] Test 00:00:00 (#1) [code = [facility] INFLUENZA VACCINE (#1)] Future Scheduled 2021-07-[address] [facility] Test 00:00:00 (12+) [code = [facility] DEPRESSION SCREENING (12+)] Future Scheduled [address] [facility] Test 00:00:00 (procedure) [code = [facility] 82657228] Future Scheduled 2004 DTAP/TDAP/TD VACCINES [facility] Test 00:00:00 (1 - Tdap) [code = Medical C enter DTAP/TDAP/TD VACCINES (1 - Tdap)] Future Scheduled 1985 COVID-19 VACCINE (#1) [facility] Test 00:00:00 [code = COVID-[address] VACCINE (#1)] Encounters Start End Encounter Admission Attending Care Care Encounter Source Date/Time Date/Time Type Type Clinicians Facility Department ID 2022-03-09 2022-03-09 Telephone DAYTON SteinRHIANNON [id number] Univers 00:00:00 00:00:00 [facility] [id number] it y of CANCER [id number] [id number] Med ical MDA [id number] Branch 2021-04-20 2021-04-20 [id number] [facility] 00:00:00 23:59:00 Sissy russo of Medicin e 2021-04-17 2021-04-20 Inpatient ER KEITH, [facility] Urology [id number] [facility] 12:53:00 17:18:00 [facility] 2021-04-17 2021-04-[address] [facility] [id number] [facility] 12:53:00 17:18:00 Encounter Indu Gambino [facility] 2021-04-20 2021-04-[address] [facility] [id number] 00:00:00 00:00:00 Only [facility] 2021-04-17 2021-04-17 Travel [facility] [id number] [facility] 00:[facility] 00[facility]00 [facility] Results Test Description Test Time Test Comments Results Result Comments Source STD Panel - CT/GC RNA 2021-04-21 19:20:42 Test Item Value Reference Range Interpretation Comme nts C. trachomatis RNA, TMA NOT DETECTED (test code = 5557386) N. gonorrhoeae RNA, TMA NOT DETECTED REF ERENCE RANGE: NOT DETECTED (test code = 6161685) Method ology: Package Delivery Driver Mediated Amplif ication (TMA)to detect RNA. The analytical performance uyen racteristics of thisassay, when used to test SurePath(TM) sp ecimens havebeen determined by [facility]. Th e modificationsha ve not been cleared or appr garland by the FDA. This assayhas b een validated pursuant to the CLIA regulations and is used for clinical purpos es. For additional info rmation, please refer [email or web address] [email or web address]/faq/F AQ154(This link is being provid ed for informational/e ducational purposes only.) SUMEET (test code = SUMEET) Performing Lab *[facility] [address] [place] [address] Phoebe Dumont MD [facility] Metabolic [id number] 07:12:27 Test Item Value Reference Range Interpretation Comments Sodium (test code = 137 meq/L 277-948 5649-2) Potassium (test code = 3.7 meq/L 3.5-5.1 2823-3) Chloride (test code = 105 meq/L 98-107 2075-0) CO2 (test code = 22 meq/L 22-29 2028-9) BUN (test code = 6 mg/dL 7-21 L 3094-0) Creatinine (test code 0.65 mg/dL 0.57-1.25 = 2160-0) Glucose (test code = 102 mg/dL 70-105 2345-7) Calcium (test code = 9.1 mg/dL 8.4-10.2 03025-6) EGFR (test code = 139 mL/min/1.73 [place] [address]-6) NOT ACCURATE CREATININE CLEARANCE IN PREDICTING GLOMERULAR FILTRATION RATE . ESTIMATED GFR I S NOT APPLICABLE FOR DIALYSIS PATIENTS. SUMEET (test code = SUMEET) Occupational Ther ID - YARED Michael Lab Interpretation Abnormal (test code = 50842-6) [facility] METABOLIC [id number] 07:12:27 Test Item Value Reference Range Interpretation Comments SODIUM (BEAKER) 137 meq/L 136-145 (test code = 381) POTASSIUM (BEAKER) 3.7 meq/L 3.5-5.1 (test code = 379) CHLORIDE (BEAKER) 105 meq/L 98-107 (test code = 382) CO2 (BEAKER) (test 22 meq/L 22-29 code = 355) BLOOD UREA NITROGEN 6 mg/dL 7-21 L (BEAKER) (test code = 354) CREATININE (BEAKER) 0.65 mg/dL 0.57-1.25 (test code = 358) GLUCOSE RANDOM 102 mg/dL 70-105 (BEAKER) (test code = 652) CALCIUM (BEAKER) 9.1 mg/dL 8.4-10.2 (test code = 697) EGFR (VIBHA) (test 139 mL/min/1.73 ESTIM ATED GFR IS code = 1092) sq m NOT ACCURATE CREATININE CLEARANCE IN PREDICTING GLOMERULAR FILTRATION RATE . ESTIMATED GFR I S NOT APPLICABLE FOR DIALYSIS PATIEN TS. Occupational Ther ID - YARED GCBC with platelet count + automated [id number] 05:35:22 Test Item Value Reference Range Interpretation Comments WBC (test code = 6690-2) 9.0 See_Comment [A utomated message] The system [employer] generated this result transmitted ref erence range: 3.5 - 10 .5 K/L. The refe rence range was not u sed to interpret this result as normal/abnor mal. RBC (test code = 789-8) 4.53 See_Comment L [Au tomated message] The system [employer] generated this result transmitted ref erence range: 4.63 - 6 .08 M/L. The refe rence range was not u sed to interpret this result as normal/abnor mal. MCHC (test code = 786-4) 32.7 See_Comment L [A utomated message] The system [employer] generated this result transmitted ref erence range: 32.3 - 3 6.5 GM/DL. The refe rence range was not u sed to interpret this result as normal/abnor mal. Hematocrit (test code = 41.3 % 40.1-51.0 4544-3) MCV (test code = 787-2) 91.2 fL 79.0-92.2 MCH (test code = 785-6) 29.8 pg 25.7-32.2 RDW (test code = 788-0) 14.6 % 11.6-14.4 H Platelets (test code = 396 See_Comment [Aut omated message] 777-3) The system [employer] generated this result transmitted ref erence range: 150 - 45 0 K/CU MM. The referen ce range was not u sed to interpret this result as normal/abnor mal. MPV (test code = 8.6 fL 9.4-12.4 L 39646-2) nRBC (test code = 413) 0 See_Comment [Aut omated message] The system [employer] generated this result transmitted ref erence range: 0 - 0 /1 00 WBC. The refere nce range was not u sed to interpret this result as normal/abnor mal. % Neutros (test code = 70 % 429) % Lymphs (test code = 20 % 430) % Monos (test code = 7 % 431) % Eos (test code = 432) 2 % % Baso (test code = 437) 0 % # Neutros (test code = 6.25 See_Comment H [Aut omated message] 670) The system [employer] generated this result transmitted ref erence range: 1.78 - 5 .38 K/L. The refe rence range was not u sed to interpret this result as normal/abnor mal. # Lymphs (test code = 1.84 See_Comment [Auto mated message] 414) The system [employer] generated this result transmitted ref erence range: 1.32 - 3 .57 K/L. The refe rence range was not u sed to interpret this result as normal/abnor mal. # Monos (test code = 0.64 See_Comment [Autom ated message] 415) The system [employer] generated this result transmitted ref erence range: 0.30 - 0 .82 K/L. The refe rence range was not u sed to interpret this result as normal/abnor mal. # Eos (test code = 416) 0.21 See_Comment [Au tomated message] The system [employer] generated this result transmitted ref erence range: 0.04 - 0 .54 K/L. The refe rence range was not u sed to interpret this result as normal/abnor mal. # Baso (test code = 417) 0.03 See_Comment [A utomated message] The system [employer] generated this result transmitted ref erence range: 0.01 - 0 .08 K/L. The refe rence range was not u sed to interpret this result as normal/abnor mal. Immature 0 % 0-1 Granulocytes-Relative (test code = 2801) Lab Interpretation (test Abnormal code = 02659-8) [facility] W/PLT COUNT & AUTO [id number] 05:35:22 Test Item Value Reference Range Interpretation Comments WHITE BLOOD CELL COUNT (BEAKER) 9.0 K/ L 3.5-10.5 (test code = 775) RED BLOOD CELL COUNT (BEAKER) 4.53 M/ L 4.63-6.08 L (test code = 761) HEMOGLOBIN (BEAKER) (test code = 13.5 GM/DL 13.7-17.5 L 410) HEMATOCRIT (BEAKER) (test code = 41.3 % 40.1-51.0 411) MEAN CORPUSCULAR VOLUME (BEAKER) 91.2 fL 79.0-92.2 (test code = 753) MEAN CORPUSCULAR HEMOGLOBIN 29.8 pg 25.7-32.2 (BEAKER) (test code = 751) MEAN CORPUSCULAR HEMOGLOBIN CONC 32.7 GM/DL 32.3-36.5 (BEAKER) (test code = 752) RED CELL DISTRIBUTION WIDTH 14.6 % 11.6-14.4 H (BEAKER) (test code = 412) PLATELET COUNT (BEAKER) (test 396 K/CU MM 150-450 code = 756) MEAN PLATELET VOLUME (BEAKER) 8.6 fL 9.4-12.4 L (test code = 754) NUCLEATED RED BLOOD CELLS 0 /100 WBC 0-0 (BEAKER) (test code = 413) NEUTROPHILS RELATIVE PERCENT 70 % (BEAKER) (test code = 429) LYMPHOCYTES RELATIVE PERCENT 20 % (BEAKER) (test code = 430) MONOCYTES RELATIVE PERCENT 7 % (BEAKER) (test code = 431) EOSINOPHILS RELATIVE PERCENT 2 % (BEAKER) (test code = 432) BASOPHILS RELATIVE PERCENT 0 % (BEAKER) (test code = 437) NEUTROPHILS ABSOLUTE COUNT 6.25 K/ L 1.78-5.38 H (BEAKER) (test code = 670) LYMPHOCYTES ABSOLUTE COUNT 1.84 K/ L 1.32-3.57 (BEAKER) (test code = 414) MONOCYTES ABSOLUTE COUNT (BEAKER) 0.64 K/ L 0.30-0.82 (test code = 415) EOSINOPHILS ABSOLUTE COUNT 0.21 K/ L 0.04-0.54 (BEAKER) (test code = 416) BASOPHILS ABSOLUTE COUNT (BEAKER) 0.03 K/ L 0.01-0.08 (test code = 417) IMMATURE GRANULOCYTES-RELATIVE 0 % 0-1 PERCENT (BEAKER) (test code = 2801) BASIC METABOLIC [id number] 06:57:58 Test Item Value Reference Range Interpretation Comments SODIUM (BEAKER) 135 meq/L 136-145 L (test code = 381) POTASSIUM (BEAKER) 3.5 meq/L 3.5-5.1 (test code = 379) CHLORIDE (BEAKER) 105 meq/L 98-107 (test code = 382) CO2 (BEAKER) (test 23 meq/L 22-29 code = 355) BLOOD UREA NITROGEN 4 mg/dL 7-21 L (BEAKER) (test code = 354) CREATININE (BEAKER) 0.63 mg/dL 0.57-1.25 (test code = 358) GLUCOSE RANDOM 104 mg/dL 70-105 (BEAKER) (test code = 652) CALCIUM (BEAKER) 8.7 mg/dL 8.4-10.2 (test code = 697) EGFR (BEAKER) (test 144 mL/min/1.73 ESTIM ATED GFR IS code = 1092) sq m NOT ACCURATE CREATININE CLEARANCE IN PREDICTING GLOMERULAR FILTRATION RATE . ESTIMATED GFR I S NOT APPLICABLE FOR DIALYSIS PATIEN TS. Occupational Ther ID - PIAYA LCBC W/PLT COUNT & AUTO [id number] 05:40:05 Test Item Value Reference Range Interpretation Comments WHITE BLOOD CELL COUNT (BEAKER) 15.9 K/ L 3.5-10.5 H (test code = 775) RED BLOOD CELL COUNT (BEAKER) 4.46 M/ L 4.63-6.08 L (test code = 761) HEMOGLOBIN (BEAKER) (test code = 13.1 GM/DL 13.7-17.5 L 410) HEMATOCRIT (BEAKER) (test code = 40.5 % 40.1-51.0 411) MEAN CORPUSCULAR VOLUME (BEAKER) 90.8 fL 79.0-92.2 (test code = 753) MEAN CORPUSCULAR HEMOGLOBIN 29.4 pg 25.7-32.2 (BEAKER) (test code = 751) MEAN CORPUSCULAR HEMOGLOBIN CONC 32.3 GM/DL 32.3-36.5 (BEAKER) (test code = 752) RED CELL DISTRIBUTION WIDTH 14.9 % 11.6-14.4 H (BEAKER) (test code = 412) PLATELET COUNT (BEAKER) (test 357 K/CU MM 150-450 code = 756) MEAN PLATELET VOLUME (BEAKER) 8.8 fL 9.4-12.4 L (test code = 754) NUCLEATED RED BLOOD CELLS 0 /100 WBC 0-0 (BEAKER) (test code = 413) NEUTROPHILS RELATIVE PERCENT 77 % (BEAKER) (test code = 429) LYMPHOCYTES RELATIVE PERCENT 14 % (BEAKER) (test code = 430) MONOCYTES RELATIVE PERCENT 7 % (BEAKER) (test code = 431) EOSINOPHILS RELATIVE PERCENT 1 % (BEAKER) (test code = 432) BASOPHILS RELATIVE PERCENT 0 % (BEAKER) (test code = 437) NEUTROPHILS ABSOLUTE COUNT 12.32 K/ L 1.78-5.38 H (BEAKER) (test code = 670) LYMPHOCYTES ABSOLUTE COUNT 2.15 K/ L 1.32-3.57 (BEAKER) (test code = 414) MONOCYTES ABSOLUTE COUNT (BEAKER) 1.18 K/ L 0.30-0.82 H (test code = 415) EOSINOPHILS ABSOLUTE COUNT 0.17 K/ L 0.04-0.54 (BEAKER) (test code = 416) BASOPHILS ABSOLUTE COUNT (BEAKER) 0.03 K/ L 0.01-0.08 (test code = 417) IMMATURE GRANULOCYTES-RELATIVE 0 % 0-1 PERCENT (BEAKER) (test code = 2801) [id number] 14:40:12 Test Item Value Reference Range Interpretation Comments RPR (test code = 13832-6) Nonreactive Nonreactive Lab Interpretation (test code = Normal 37542-8) [facility] 14:40[facility]12 Test Item Value Reference Range Interpretation Comments RPR SCREEN (BEAKER) (test code = Nonreactive Nonreactive 420) Lactate dehydrogenase (LDH)2021-04-18 12:27:24 Test Item Value Reference Range Interpretation Comments LDH (test code = 2532-0) 219 U/L 125-220 SUMEET (test code = SUMEET) Occupational Ther ID - TERA F Lab Interpretation (test Normal code = 88043-7) [facility]SE (LDH)2021-04-18 12:27:24 Test Item Value Reference Range Interpretation Comments LACTATE DEHYDROGENASE (BEAKER) (test 219 U/L 125-220 code = 635) Occupational Ther KARUNA HALEY FAlpha fetoprotein (AFP), tumor [id number] 11:20:09 Test Item Value Reference Range Interpretation Comments Alpha-Fetoprotein <2.0 See_Comment [Automate d (test code = 1834-1) message ] The system which generated this result transmit olvin reference range : <10.0 ng/mL. Th e reference range was not used to interpret this result as normal/abnormal . SUMEET (test code = SUMEET) Occupational Ther KARUNA Upton Lab Interpretation Normal (test code = 85664-8) [facility] FET[facility]OTE[facility] (AFP), TUMOR [id number] 11:20:09 Test Item Value Reference Range Interpretation Comments ALPHA-FETOPROTEIN (BEAKER) (test code < ng/mL <10.0 = 1094) Occupational Ther KARUNA HALEY FhG, quantitative, [id number] 09:46:47 Test Item Value Reference Range Interpretation Comments hCG Quant (test code 5 mIU/mL = 48904-1) SUMEET (test code = SUMEET) Non- Females: <10 mIU/mL Females: Gestation Age Reference Range(mIU/mL) 0.2-1 Week 5-50 1-2 Weeks 50-500 2-3 Weeks 100-5,000 3-4 Weeks 500-10,000 4-5 Weeks 1,000-50,000 5-6 Weeks 10,000-100,000 6-8 Weeks 15,000-200,000 2-3 Months 10,000-100,000 Occupational Ther KARUNA Upton [facility], QUANTITATIVE, [id number] 09:46:47 Test Item Value Reference Range Interpretation Comments GONADOTROPIN, CHORIONIC (HCG) QUANT 5 mIU/mL (BEAKER) (test code = 649) Non- Females: <10 mIU/mL Females: Gestation Age Reference Range(mIU/mL) 0.2-1 Week 5-50 1-2 Weeks 50-500 2-3 Weeks 100-5,000 3-4 Weeks 500-10,000 4-5 Weeks 1,000-50,000 5-6 Weeks 10,000-100,000 6-8 Weeks 15,000- 200,000 2-3 Months 10,000-100,000 Occupational Ther KARUNA HALEY FComprehensive metabolic [id number] 08:04:37 Test Item Value Reference Range Interpretation Comments Protein, Total (test 7.2 See_Comment [Autom ated code = 2885-2) message] The system which generated this result transmitted reference range : 6.0 - 8.3 gm/dL . The reference range was not used to interpr et this result as normal/abnormal . Albumin (test code = 3.3 g/dL 3.5-5.0 L 84689-3) Alkaline Phosphatase 122 U/L 40-150 (test code = 6768-6) Total Bilirubin (test 0.8 mg/dL 0.2-1.2 code = 1975-2) Sodium (test code = 137 meq/L 982-342 9230-2) Potassium (test code 3.7 meq/L 3.5-5.1 = 2823-3) Chloride (test code = 108 meq/L 98-107 H 2075-0) CO2 (test code = 21 meq/L 22-29 L 2028-9) BUN (test code = 6 mg/dL 7-21 L 3094-0) Creatinine (test code 0.62 mg/dL 0.57-1.25 = 2160-0) Glucose (test code = 120 mg/dL 70-105 H 2345-7) Calcium (test code = 8.9 mg/dL 8.4-10.2 12179-8) AST (test code = 14 U/L 5-34 1920-8) ALT (test code = 13 U/L 6-55 1742-6) EGFR (test code = 147 mL/min/1.73 [place] [address]-8) NOT ACCURATE CREATININE CLEARANCE IN PREDICTING GLOMERULAR FILTRATION RATE . ESTIMATED GFR I S NOT APPLICABLE FOR DIALYSIS PATIENTS. SUMEET (test code = SUMEET) Occupational Ther ID - YARED WOODperator ID - TERA F Lab Interpretation Abnormal (test code = 65049-5) [facility] METABOL[facility] [id number] 08:04:37 Test Item Value Reference Range Interpretation Comments TOTAL PROTEIN 7.2 gm/dL 6.0-8.3 (BEAKER) (test code = 770) ALBUMIN (BEAKER) 3.3 g/dL 3.5-5.0 L (test code = 1145) ALKALINE PHOSPHATASE 122 U/L 40-150 (BEAKER) (test code = 346) BILIRUBIN TOTAL 0.8 mg/dL 0.2-1.2 (BEAKER) (test code = 377) SODIUM (BEAKER) (test 137 meq/L 136-145 code = 381) POTASSIUM (BEAKER) 3.7 meq/L 3.5-5.1 (test code = 379) CHLORIDE (BEAKER) 108 meq/L 98-107 H (test code = 382) CO2 (BEAKER) (test 21 meq/L 22-29 L code = 355) BLOOD UREA NITROGEN 6 mg/dL 7-21 L (BEAKER) (test code = 354) CREATININE (BEAKER) 0.62 mg/dL 0.57-1.25 (test code = 358) GLUCOSE RANDOM 120 mg/dL 70-105 H (BEAKER) (test code = 652) CALCIUM (BEAKER) 8.9 mg/dL 8.4-10.2 (test code = 697) AST (SGOT) (BEAKER) 14 U/L 5-34 (test code = 353) ALT (SGPT) (BEAKER) 13 U/L 6-55 (test code = 347) EGFR (BEAKER) (test 147 ESTIMATE D GFR IS code = 1092) mL/min/1.73 sq NOT ACCURA TE m CREATININE CLEARANCE IN PREDICTING GLOMERULAR FILTRATION RATE . ESTIMATED GFR I S NOT APPLICABLE FOR DIALYSIS PATIEN TS. Occupational Ther ID - YARED GOperator ID - TERA FManual [id number] 07:20:32 Test Item Value Reference Range Interpretation Comments % Neutros (test code = 89 % 2816) % Lymphs (test code = 6 % 2817) % Monos (test code = 3 % 2818) % Eos (test code = 2819) 2 % # Neutros (test code = 25.19 K/ul 1.78-5.38 H 2830) # Lymphs (test code = 1.70 K/ul 1.32-3.57 2831) # Monos (test code = 0.85 K/uL 0.30-0.82 H 2832) # Eos (test code = 2834) 0.57 K/uL 0.04-0.54 H Total Counted (test code 100 = 1351) WBC Morphology (test Normal code = 487) Giant Platelet (test Present code = 313) Polychromasia (test code 1+ few = 478) Artifact (test code = Present 3432) Platelet Conc (test code Adequate = 3438) SUMEET (test code = SUMEET) Occupational Ther ID - ventura balsaraUser comments: Slide comments: Lab Interpretation (test Abnormal code = 56777-6) [facility](CELLAVISION MANUAL DIFF)2021-04-18 07:20:32 Test Item Value Reference Range Interpretation Comments NEUTROPHILS - REL 89 % (CELLAVISION)(BEAKER) (test code = 2816) LYMPHOCYTES - REL 6 % (CELLAVISION)(BEAKER) (test code = 2817) MONOCYTES - REL 3 % (CELLAVISION)(BEAKER) (test code = 2818) EOSINOPHILS - REL 2 % (CELLAVISION)(BEAKER) (test code = 2819) NEUTROPHILS - ABS 25.19 K/ul 1.78-5.38 H (CELLAVISION)(BEAKER) (test code = 2830) LYMPHOCYTES - ABS 1.70 K/ul 1.32-3.57 (CELLAVISION)(BEAKER) (test code = 2831) MONOCYTES - ABS 0.85 K/uL 0.30-0.82 H (CELLAVISION)(BEAKER) (test code = 2832) EOSINOPHILS - ABS 0.57 K/uL 0.04-0.54 H (CELLAVISION)(BEAKER) (test code = 2834) TOTAL COUNTED (BEAKER) (test code 100 = 1351) WBC MORPHOLOGY (BEAKER) (test code Normal = 487) GIANT PLATELETS (BEAKER) (test Present code = 313) POLYCHROMATOPHILLIC RBCS(BEAKER) 1+ few (test code = 478) ARTIFACT (CELLAVISION)(BEAKER) Present (test code = 3432) PLATELET CONCENTRATION Adequate (CELLAVISION)(BEAKER) (test code = 3438) Occupational Ther ID - ventura balsaraUser comments: Slide comments:CBC W/PLT COUNT & AUTO [id number] 07:20:30 Test Item Value Reference Range Interpretation Comments WHITE BLOOD CELL COUNT (BEAKER) 28.3 K/ L 3.5-10.5 H (test code = 775) RED BLOOD CELL COUNT (BEAKER) 4.54 M/ L 4.63-6.08 L (test code = 761) HEMOGLOBIN (BEAKER) (test code = 13.3 GM/DL 13.7-17.5 L 410) HEMATOCRIT (BEAKER) (test code = 41.9 % 40.1-51.0 411) MEAN CORPUSCULAR VOLUME (BEAKER) 92.3 fL 79.0-92.2 H (test code = 753) MEAN CORPUSCULAR HEMOGLOBIN 29.3 pg 25.7-32.2 (BEAKER) (test code = 751) MEAN CORPUSCULAR HEMOGLOBIN CONC 31.7 GM/DL 32.3-36.5 L (BEAKER) (test code = 752) RED CELL DISTRIBUTION WIDTH 14.9 % 11.6-14.4 H (BEAKER) (test code = 412) PLATELET COUNT (BEAKER) (test 347 K/CU MM 150-450 code = 756) MEAN PLATELET VOLUME (BEAKER) 8.6 fL 9.4-12.4 L (test code = 754) NUCLEATED RED BLOOD CELLS 0 /100 WBC 0-0 (BEAKER) (test code = 413) HIV-1 Antigen with HIV-1/2 [id number] 06:43:00 Test Item Value Reference Range Interpretation Comments HIV-1 Antigen with HIV Nonreactive Nonreactive 1&2 Antibody (test code = 57697-6) SUMEET (test code = SUMEET) Occupational Ther ID - PINOE L Lab Interpretation (test Normal code = 56620-9) [facility]TIGEN WITH HIV-1/2 [id number] 06:43:00 Test Item Value Reference Range Interpretation Comments HIV-1 ANTIGEN WITH HIV 1\T\2 Nonreactive Nonreactive ANTIBODY (2) (BEAKER) (test code = 2586) Occupational Ther ID - PINOE LHepatitis panel, [id number] 06:42:59 Test Item Value Reference Range Interpretation Comments Hep A IgM (test code = Nonreactive Nonreactive 35260-3) Hep B C IgM (test code = Nonreactive Nonreactive 22926-9) Hepatitis C Ab (test Nonreactive Nonreactive code = 01648-7) Hepatitis B surface Nonreactive Nonreactive antigen (test code = 5195-3) SUMEET (test code = SUMEET) Occupational Ther ID - PIAYA L Lab Interpretation (test Normal code = 89848-5) [facility] [id number] 06:42:59 Test Item Value Reference Range Interpretation Comments HEPATITIS A IGM ANTIBODY (BEAKER) Nonreactive Nonreactive (test code = 498) HEPATITIS B CORE IGM ANTIBODY Nonreactive Nonreactive (BEAKER) (test code = 645) HEPATITIS C ANTIBODY (BEAKER) Nonreactive Nonreactive (test code = 367) HEPATITIS B SURFACE ANTIGEN (2) Nonreactive Nonreactive (BEAKER) (test code = 2585) Occupational Ther ID - PINOE L
[2022-03-14] MEDS ORDERED: NA CHLORIDE 0.9% 1,000 ML ONE ×3 (01:49→04:39)
[2022-03-14] MEDS ORDERED: ONDANSETRON 4 MG/2 ML VIAL ONE (01:49)
[2022-03-14] MEDS ORDERED: MORPHINE 4 MG/ML SYR ONE (01:49)
[2022-03-14 02:24] LABS: Absolute Lymphocytes (CBC) 2.4 K/uL (0.7-4.9); Hematocrit 39.5 % (39.6-49.0); Lymphocytes % 12.2 % (15.3-44.8); MCV 84.6 fL (80-100); MPV 7.1 fL (7.6-11.3); RBC Red Blood Cell Count 4.67 M/uL (4.33-5.43)
[2022-03-14 02:32] LABS: Albumin 3.3 g/dL (3.4-5.0); Bilirubin Total 0.3 mg/dL (0.2-1.0); Potassium 3.7 mmol/L (3.5-5.1); Protein, Total 8.3 g/dL (6.4-8.2)
--- NOTE | 2022-03-14 03:46 | EDPHYS ---
Physician Documentation [facility] Name: Aidan East Age: 36 yrs Sex: Male : 1985 Arrival Date: 03/14/2022 Time: 00:12 Bed 5 Private MD: ED Physician Yobany Lord HPI: 03/14 01:15 This 36 yrs old Male presents to ER via Wheelchair with complaints of Urinary cp Problem, Wound Check, Fever. 01:15 The patient reports fever, that was measured at 99.7 degrees Fahrenheit. cp 01:15 Onset: The symptoms/episode began/occurred yesterday. cp 01:15 Patient reports having right testicle removed 03-01-2022 by physician at [facility] in [facility]. 01:15 Associated signs and symptoms: Pertinent negatives: cough, diarrhea, sore throat, cp vomiting. Historical: - Allergies: 00:57 No Known Allergies; vc1 - Home Meds: 00:57 None [Active]; vc1 - PMHx: 00:57 paraplegic; UTI; vc1 - PSHx: 00:57 T12 surgery; Testicle removed; vc1 - Immunization history:: Client reports having NOT received the Covid vaccine. - Social history:: Smoking status: Patient reports the use of cigarette tobacco products, 1-2/day. ROS: 01:20 Eyes: Negative for injury, pain, redness, and discharge. cp 01:20 Constitutional: Negative for fever, poor PO intake. 01:20 ENT: Negative for drainage from ear(s), ear pain, sore throat, difficulty swallowing, difficulty handling secretions. 01:20 Cardiovascular: Negative for chest pain, palpitations. 01:20 Respiratory: Negative for cough, shortness of breath, wheezing. 01:20 Abdomen/GI: Positive for abdominal pain, of the anterior aspect of right lateral abdomen, Negative for vomiting, diarrhea, constipation. 01:20 Neuro: Negative for altered mental status, headache. 01:20 All other systems are negative. Exam: 01:25 Constitutional: The patient appears in no acute distress, alert, awake, non-toxic, well cp developed, well nourished. 01:25 Head/Face: Normocephalic, atraumatic. cp 01:25 Eyes: Periorbital structures: appear normal, Conjunctiva: normal, no exudate, no injection, Sclera: no appreciated abnormality, Lids and lashes: appear normal, bilaterally. 01:25 ENT: External ear(s): are unremarkable, Nose: is normal, Mouth: Lips: moist, Oral mucosa: pink and intact, moist, Posterior pharynx: Airway: no evidence of obstruction, patent. 01:25 Chest/axilla: Inspection: normal. 01:25 Cardiovascular: Rate: normal, Rhythm: regular. 01:25 Respiratory: the patient does not display signs of respiratory distress, Respirations: normal, no use of accessory muscles, no retractions, labored breathing, is not present, Breath sounds: are clear throughout, no decreased breath sounds, no stridor, no wheezing. 01:25 Abdomen/GI: Inspection: abdomen appears normal, Bowel sounds: active, all quadrants, Palpation: soft, in all quadrants, mild abdominal tenderness, in the anterior aspect of right lateral abdomen, rebound tenderness, is not appreciated, involuntary guarding, is not appreciated. 01:25 Skin: surgical incision of right inguinal area appears with mild dehiscence, mild swelling noted, no drainage, no erythema. 01:25 Neuro: Orientation: to person, place \T\ time. Mentation: is normal, Motor: history of lower extremity paralysis. Vital Signs: 01:23 BP 117 / 81; Pulse 85; Pulse Ox 97% on R/A; aa9 01:39 Temp 99.1(O); kd3 02:00 BP 116 / 73; Pulse 100; Resp 17 S; Pulse Ox 98% on R/A; Pain 9/10; ha1 02:20 BP 117 / 75; Pulse 95; Resp 17 S; Pulse Ox 98% on R/A; Pain 4/10; ha1 03:40 BP 119 / 77; Pulse 93; Resp 16 S; Pulse Ox 99% on R/A; ha1 04:45 BP 117 / 77; Pulse 89; Resp 18 S; Pulse Ox 98% on R/A; ha1 05:41 BP 122 / 74; Pulse 90; Resp 16 S; Pulse Ox 100% on R/A; ha1 10:17 BP 141 / 92; Pulse 91; Resp 16; Pulse Ox 100% on R/A; jd3 MDM: 00:51 Patient medically screened. cp 03:30 Data reviewed: vital signs, nurses notes, lab test result(s). 03:30 Transition of care: After a detail discussion of the patient's case, care is cp transferred to Yobany Lord MD. 03/14 01:12 Order name: CBC with Diff 03/14 01:12 Order name: CMP 03/14 01:12 Order name: Lipase 03/14 01:14 Order name: Procalcitonin 03/14 02:25 Order name: CBC with Automated Diff; Complete Time: 02:47 EDMS 03/14 02:48 Interpretation: Normal except: WBC 19.60; HGB 13.1; HCT 39.5; MCV 84.6; PLT 510; MPV cp 7.1; MOISE% 81.6; LYM% 12.2; NEUT A 16.0. 03/14 02:32 Order name: Comprehensive Metabolic Panel; Complete Time: 02:47 EDMS 03/14 03:57 Interpretation: Normal except: GLUC 126; AST 12; ALK 168; TP 8.3; ALB 3.3; GLOB 5.0; cp A/G 0.7. 03/14 02:32 Order name: Lipase; Complete Time: 02:47 EDMS 03/14 02:34 Order name: Lactate; Complete Time: 02:47 EDMS 03/14 02:48 Interpretation: Abnormal: LAC 2.2. 03/14 03:41 Order name: Blood Culture Adult (2) [facility] 03/14 03:43 Order name: SARS RAPID; Complete Time: 06:17 [facility] 03/14 03:44 Order name: Procalcitonin; Complete Time: 03:56 EDMS 03/14 03:56 Interpretation: Reviewed. 03/14 03:49 Order name: Urine Dipstick-Ancillary; Complete Time: 03:56 EDVA 03/14 03:56 Interpretation: Normal except: UBLD 1+; UPROT 1+; UESTR 1+. 03/14 01:12 Order name: IV Saline Lock; Complete Time: 02:02 03/14 03:43 Order name: Chest Single View XRAY [facility] 03/14 04:06 Order name: Urine Microscopic Only; Complete Time: 04:47 EDMS 03/14 04:07 Order name: Abdomen EDVA 03/14 04:19 Order name: Lactate Sepsis 2 HR Follow-up; Complete Time: 04:47 EDMS 03/14 04:45 Order name: Urine Culture EDVA 03/14 01:12 Order name: Labs collected and sent; Complete Time: 02:02 cp 03/14 01:12 Order name: Urine Dipstick-Ancillary (obtain specimen); Complete Time: 02:02 cp 03/14 06:10 Order name: IV Saline Lock - Large Bore; Complete Time: 06:13 uyen Administered Medications: 02:02 Drug: Zofran (Ondansetron) 4 mg Route: IVP; Site: left forearm; ha1 02:20 Follow up: Response: No adverse reaction ha1 02:03 Drug: NS 0.9% 1000 ml Route: IV; Rate: 1 bolus; Site: left forearm; ha1 02:03 Drug: morphine 4 mg Route: IVP; Infused Over: 4 mins; Site: left forearm; ha1 02:20 Follow up: Response: No adverse reaction; Pain is decreased; RASS: Alert and Calm (0) ha1 04:38 Drug: Rocephin (cefTRIAXone) 1 grams Route: IV; Rate: per protocol; Site: right forearm;ha1 05:05 Follow up: Response: No adverse reaction; IV Status: Completed infusion; IV Intake: [id number] 04:38 Drug: NS 0.9% 1000 ml Route: IV; Rate: 1 bolus; Site: right forearm; ha1 07:00 Follow up: Response: No adverse reaction; IV Status: Completed infusion jd3 04:39 Drug: NS 0.9% 1000 ml Route: IV; Rate: 1 bolus; Site: right forearm; ha1 04:39 Drug: levofloxacin 750 mg Volume: 150 ml; Route: IVPB; Infused Over: 90 mins; Site: ha1 right forearm; 05:20 Drug: Silver SulfADIAZINE Cream 1 % 1 application Route: Topical; Site: affected area; ha1 07:12 Drug: vancoMYCIN 1.5 grams Route: IVPB; Rate: calculated rate; Site: right forearm; ha1 Disposition: 06:10 Co-signature as Attending Physician, Yobany Lord MD I agree with the assessment and uyen plan of care. 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 cp cp 04:00 03/13 01:20 Constitutional: Negative for fever, poor PO intake, cp cp 03/14 04:00 03/13 01:20 Cardiovascular: Negative for chest pain, palpitations, cp cp 03/14 04:00 0906 01:20 Respiratory: Negative for cough, shortness of breath, wheezing, cp cp 03/14 04:00 0906 01:20 Abdomen/GI: Positive for abdominal pain, of the anterior aspect of right cp lateral abdomen, Negative for vomiting, diarrhea, constipation, cp 03/14 04:00 03/13 01:20 Eyes: Negative for injury, pain, redness, and discharge, cp cp 03/14 04:00 09 01:20 ENT: Negative for drainage from ear(s), ear pain, sore throat, difficulty cp swallowing, difficulty handling secretions, cp 03/14 04:00 0906 01:20 Neuro: Negative for altered mental status, headache, cp cp 03/14 04:00 09 01:20 All other systems are negative, cp cp 03/14 04:14 03:51 LACTATE+C.LAB.BRZ ordered. EDMS EDMS 04:21 03:51 Abdomen Pelvis W Con+CT.RAD.BRZ ordered. EDMS EDMS 04:57 03:51 UA MICROSCOPIC+U.LAB.BRZ ordered. EDMS EDMS 05:18 03:45 Telemetry/MedSurg (Inpatient) uyen cg 05:18 03:45 uyen cg 06:13 03:45 Inpatient Admission uyen uyen 06:13 03:45 BaidoLamberto quinn uyen uyen 06:13 03:45 Stable uyen uyen 06:13 03:45 new uyen uyen 06:13 03:45 have improved uyne uyen 06: 03:45 Standard uyen uyen 06: 03:45 UTI/ Urinary tract infection, site not specified uyen uyen 06:13 03:45 Fever, unspecified uyen uyen 06:13 03:45 Paraplegia uyen uyen 06:13 03:45 Weakness uyen uyen 06:13 05:08 Pressure ulcer of sacral region, unspecified stage uyen uyen 06: 05:18 [facility] ER HOLD cg uyen 06:13 05:18 ERHOLD- cg [facility] 06:18 06:17 dr flores uyen uyen 10:28 06:18 hospitalist, denys qiu jd3
--- NOTE | 2022-03-14 03:46 | ER ---
Nurse's Notes [facility] Name: Aidan East Age: 36 yrs Sex: Male : 1985 Arrival Date: 03/14/2022 Time: 00:12 Bed 5 Private MD: Diagnosis: Severe sepsis without septic shock;Pressure ulcer of sacral region, stage 4;Cutaneous abscess of buttock-left ischial decubitus, with fistula, abscess 2.1x 3.1x 5.4;Osteomyelitis, unspecified;Acute cystitis;Elevated white blood cell count;Paraplegia Presentation: 03/14 00:54 Chief complaint: Patient states: "I had a UTI and took some antibiotics but I am pretty vc1 sure I still have one. I am also running a temperature of 99.7. I have 2 open wounds and I am worried they could be infected causing me to run a fever.". Coronavirus screen: Vaccine status: Patient reports being unvaccinated. At this time, the client does not indicate any symptoms associated with coronavirus-19. Ebola Screen: No symptoms or risks identified at this time. Risk Assessment: Do you want to hurt yourself or someone else? Patient reports no desire to harm self or others. Onset of symptoms is unknown. 00:54 Method Of Arrival: Wheelchair vc1 00:54 Acuity: SPIKE 3 vc1 10:13 Initial Sepsis Screen: Does the patient meet any 2 criteria? No. Patient's initial jd3 sepsis screen is negative. Does the patient have a suspected source of infection? Yes: Skin breakdown/wound. Triage Assessment: 00:57 General: Appears in no apparent distress. uncomfortable, Behavior is calm, cooperative, vc1 appropriate for age. Pain: Denies pain. Historical: - Allergies: 00:57 No Known Allergies; vc1 - Home Meds: 00:57 None [Active]; vc1 - PMHx: 00:57 paraplegic; UTI; vc1 - PSHx: 00:57 T12 surgery; Testicle removed; vc1 - Immunization history:: Client reports having NOT received the Covid vaccine. - Social history:: Smoking status: Patient reports the use of cigarette tobacco products, 1-2/day. Screenin:00 Abuse screen: Denies threats or abuse. Nutritional screening: No deficits noted. vc1 Tuberculosis screening: No symptoms or risk factors identified. Fall Risk None identified. Assessment: 00:42 Neuro: Level of Consciousness is awake, alert, obeys commands, Oriented to person, ha1 place, time, situation, Speech is normal. Respiratory: Airway is patent Trachea midline Respiratory effort is even, unlabored, Respiratory pattern is regular, symmetrical. : Reports burning with urination. EENT: No deficits noted. No signs and/or symptoms were reported regarding the EENT system. 01:30 Reassessment: Patient appears in no apparent distress at this time. Patient and/or ha1 family updated on plan of care and expected duration. Pain level reassessed. Patient is alert, oriented x 3, equal unlabored respirations, skin warm/dry/pink. 02:30 Reassessment: Patient and/or family updated on plan of care and expected duration. Pain ha1 level reassessed. Patient is alert, oriented x 3, equal unlabored respirations, skin warm/dry/pink. talking to family member in the room. states " my pain is not bad now". 03:14 Reassessment: Patient and/or family updated on plan of care and expected duration. Pain ha1 level reassessed. Patient is alert, oriented x 3, equal unlabored respirations, skin warm/dry/pink. going to CT. 03:57 Reassessment: Patient appears in no apparent distress at this time. Patient and/or ha1 family updated on plan of care and expected duration. Pain level reassessed. Patient is alert, oriented x 3, equal unlabored respirations, skin warm/dry/pink. 04:40 Reassessment: Patient appears in no apparent distress at this time. Patient and/or ha1 family updated on plan of care and expected duration. Pain level reassessed. Patient is alert, oriented x 3, equal unlabored respirations, skin warm/dry/pink. 05:20 Reassessment: Patient appears in no apparent distress at this time. Patient and/or ha1 family updated on plan of care and expected duration. Pain level reassessed. Patient is alert, oriented x 3, equal unlabored respirations, skin warm/dry/pink. 05:39 Derm: Wound noted left gluteus nanda Wound is stage three purulent drainage. dressing ha1 changed. 07:30 General: Appears in no apparent distress. comfortable, Behavior is calm, cooperative, jd3 appropriate for age. Neuro: [place]wood Agitation-Sedation Scale (RASS): 0 - Alert and Calm Level of Consciousness is awake, alert, obeys commands, Oriented to person, place, time, situation. Cardiovascular: Capillary refill < 3 seconds Patient's skin is warm and dry. Respiratory: Airway is patent Respiratory effort is even, unlabored, Respiratory pattern is regular, symmetrical. GI: No signs and/or symptoms were reported involving the gastrointestinal system. : Reports burning with urination. EENT: No signs and/or symptoms were reported regarding the EENT system. Derm: Wound noted buttocks. 08:30 Reassessment: No changes from previously documented assessment. Patient and/or family jd3 updated on plan of care and expected duration. Pain level reassessed. Patient is alert, oriented x 3, equal unlabored respirations, skin warm/dry/pink. 09:00 Reassessment: report given to Anni LUCAS. jd3 09:30 Reassessment: No changes from previously documented assessment. Patient and/or family jd3 updated on plan of care and expected duration. Pain level reassessed. Patient is alert, oriented x 3, equal unlabored respirations, skin warm/dry/pink. 10:28 Reassessment: Patient and/or family updated on plan of care and expected duration. Pain jd3 level reassessed. Patient is alert, oriented x 3, equal unlabored respirations, skin warm/dry/pink. report given to [facility] crew. Vital Signs: 01:23 BP 117 / 81; Pulse 85; Pulse Ox 97% on R/A; aa9 01:39 Temp 99.1(O); kd3 02:00 BP 116 / 73; Pulse 100; Resp 17 S; Pulse Ox 98% on R/A; Pain 9/10; ha1 02:20 BP 117 / 75; Pulse 95; Resp 17 S; Pulse Ox 98% on R/A; Pain 4/10; ha1 03:40 BP 119 / 77; Pulse 93; Resp 16 S; Pulse Ox 99% on R/A; ha1 04:45 BP 117 / 77; Pulse 89; Resp 18 S; Pulse Ox 98% on R/A; ha1 05:41 BP 122 / 74; Pulse 90; Resp 16 S; Pulse Ox 100% on R/A; ha1 10:17 BP 141 / 92; Pulse 91; Resp 16; Pulse Ox 100% on R/A; jd3 ED Course: 00:12 Patient arrived in ED. ja2 00:16 Yobany Muse PA is PHCP. cp 00:16 Yobany Lord MD is Attending Physician. cp 00:57 Triage completed. vc1 00:59 Radha Mackenzie, RN is Primary Nurse. ha1 01:00 Arm band placed on. vc1 03:44 Romeo Jackson MD is Hospitalizing Provider. uyen 03:44 Hospitalizing Provider role handed off by Romeo Jackson MD uyen 03:44 Lamberto Weiss is Hospitalizing Provider. uyen 03:56 SARS RAPID Sent. ha1 04:11 Abdomen In Process Unspecified. EDMS 04:16 Chest Single View XRAY In Process Unspecified. EDMS 06:15 Dr. Lord initiated transfer to [facility], per Pt request. 07:28 pt accepted in transfer to [facility] by Dr Godoy admin approval given by Cecily Morocho, pt going to room 1130. 07:30 Patient has correct armband on for positive identification. Bed in low position. Call jd3 light in reach. Side rails up X2. Client placed on continuous cardiac and pulse oximetry monitoring. NIBP monitoring applied. playground monitor on. Pulse ox on. NIBP on. Warm blanket given. 10:14 No provider procedures requiring assistance completed. Patient transferred, IV remains jd3 in place. Administered Medications: 02:02 Drug: Zofran (Ondansetron) 4 mg Route: IVP; Site: left forearm; ha1 02:20 Follow up: Response: No adverse reaction ha1 02:03 Drug: NS 0.9% 1000 ml Route: IV; Rate: 1 bolus; Site: left forearm; ha1 02:03 Drug: morphine 4 mg Route: IVP; Infused Over: 4 mins; Site: left forearm; ha1 02:20 Follow up: Response: No adverse reaction; Pain is decreased; RASS: Alert and Calm (0) ha1 04:38 Drug: Rocephin (cefTRIAXone) 1 grams Route: IV; Rate: per protocol; Site: right forearm;ha1 05:05 Follow up: Response: No adverse reaction; IV Status: Completed infusion; IV Intake: [id number] 04:38 Drug: NS 0.9% 1000 ml Route: IV; Rate: 1 bolus; Site: right forearm; ha1 07:00 Follow up: Response: No adverse reaction; IV Status: Completed infusion jd3 04:39 Drug: NS 0.9% 1000 ml Route: IV; Rate: 1 bolus; Site: right forearm; ha1 04:39 Drug: levofloxacin 750 mg Volume: 150 ml; Route: IVPB; Infused Over: 90 mins; Site: ha1 right forearm; 05:20 Drug: Silver SulfADIAZINE Cream 1 % 1 application Route: Topical; Site: affected area; ha1 07:12 Drug: vancoMYCIN 1.5 grams Route: IVPB; Rate: calculated rate; Site: right forearm; ha1 Medication: 01:00 VIS not applicable for this client. vc1 Intake: 05:05 IV: 50ml; Total: 50ml. ha1 Outcome: 03:45 Decision to Hospitalize by Provider. uyen 06:17 ER care complete, transfer ordered by MD. [facility] 10:14 Condition: stable jd3 10:14 Instructed on the need for transfer, Demonstrated understanding of instructions. 10:28 Transferred by ground EMS to [facility], Transfer form jd3 completed. X-rays sent w/ patient. 10:28 Patient left the ED. jd3 Signatures: Dispatcher [employer] EDMS Mallika Whitley Corey, MD MD cha Page, Corey, PA PA cp Davies, Jonathon, RN RN jd3 Yeni Reilly Jessica ja2 Virginia Moss RN RN kd3 Charity Canales RN RN vc1 Gely Stuart RN RN aa9 Radha Mackenzie RN RN ha1 Corrections: (The following items were deleted from the chart) 05:48 05:48 Response: No adverse reaction; Pain is decreased; RASS: Alert and Calm (0) ha1 ha1 05:49 05:46 Response: No adverse reaction; IV Status: Completed infusion; IV Intake: 50ml ha1 ha1 05:52 02:45 BP 117 / 75; Pulse 95bpm; Resp 17bpm; Spontaneous; Pulse Ox 98% RA; ha1 ha1
[2022-03-14 03:49] LABS: Urine Blood 1+ (Negative); Urine Glucose Negative (Negative); Urine Protein 1+ (Negative); Urine Specific Gravity >=1.030 (1.005-1.030)
[2022-03-14] MEDS ORDERED: CEFTRIAXONE 1000 MG/VIAL ONE (04:14)
[2022-03-14] MEDS ORDERED: NA CHLORIDE 0.9% 50 ML ONE (04:15)
[2022-03-14] MEDS ORDERED: Levofloxacin 750mg IV 750 MG/150 ML BAG IV ONE (04:15)
[2022-03-14] MEDS ORDERED: SILVER SULFADIAZINE 1% 25 GM TOP ONE (04:36)
[2022-03-14 04:41] LABS: Urine Bacteria 20-50 /HPF (<20); Urine Mucus 2+ /HPF (None Seen); Urine RBC 21-50 /HPF (None Seen); Urine WBC Clump Rare /HPF (None Seen)
[2022-03-14 04:48] LABS: SARS-CoV-2 Antigen Rapid Res Negative (Negative)
--- NOTE | 2022-03-14 05:49 | P.HP ---
Certification for Inpatient Patient admitted to: Inpatient With expected LOS: >2 Midnights Patient will require the following post-hospital care: None Practitioner: I am a practitioner with admitting privileges, knowledge of patient current condition, hospital course, and medical plan of care. Services: Services provided to patient in accordance with Admission requirements found in Title 42 Section 412.3 of the Code of Federal Regulations Patient History Date of Service: 03/14/22 Reason for admission: UTI History of Present Illness: Patient is a 36-year-old male with history of paraplegia and recurrent UTI (uses condom catheter chronically) who presented to the ED with complaints of fever and sacral wound. Patient had a right orchectomy 1.5 weeks ago at [facility] and has been recovering well. He has been taking antibiotics. There are no signs of infection around the site. His labs are significant for WBC 19.6 and urine positive for UTI. CT pending. Sacral wound does not appear infected. He was started on rocephin & levaquin and given morphine, zofran, 3L fluid. He is admitted for further evaluation and treatment. Allergies No Known Allergies Allergy (Verified 04/19/17 23:19) Home Medications: levoFLOXacin [Levaquin*] 500 mg PO DAILY 6PM #7 tab 11/17/18 - Past Medical/Surgical History Diabetic: No -: Chronic recurrent UTI -: Paraplegia to the lower extremity -: Previous work related injury causing T12 paraplegia -: Tobacco abuse -: History of IVC filter placed -: T12 fx surgery -: IVC Filter(spine) Psychosocial/ Personal History: He is single. Has no children, he currently lives by himself. - Social History Smoking Status: Current some day smoker Alcohol use: Yes CD- Drugs: Yes Caffeine use: Yes Place of Residence: Home Review of Systems General: Fever, As per HPI Physical Examination - Physical Exam General: Alert, In no apparent distress HEENT: Atraumatic, PERRLA, EOMI, Sclerae nonicteric Neck: Supple, 2+ carotid pulse no bruit, No LAD, Without JVD or thyroid abnormality Respiratory: Clear to auscultation bilaterally, Normal air movement Cardiovascular: Regular rate/rhythm, Normal S1 S2 Gastrointestinal: Normal bowel sounds, No tenderness Musculoskeletal: No tenderness Integumentary: No rashes Neurological: Normal speech, Normal affect - Studies Laboratory Data (last 24 hrs) 03/14/22 01:45: Sodium 137, Potassium 3.7, BUN 12, Creatinine 0.83, Glucose 126 H, Total Bilirubin 0.3, AST 12 L, ALT 26, Alkaline Phosphatase 168 H, Lipase 89 03/14/22 01:45: WBC 19.60 H, Hgb 13.1 L, Hct 39.5 L, Plt Count 510 H 03/14/22 01:12: Sodium Cancelled, Potassium Cancelled, BUN Cancelled, Creatinine Cancelled, Glucose Cancelled, Total Bilirubin Cancelled, AST Cancelled, ALT Cancelled, Alkaline Phosphatase Cancelled, Lipase Cancelled 03/14/22 01:12: WBC Cancelled, Hgb Cancelled, Hct Cancelled, Plt Count Cancelled Assessment and Plan - Problems (Diagnosis) (1) Paraplegia Current Visit: Yes Status: Acute (2) HTN (hypertension) Current Visit: Yes Status: Chronic Qualifiers: Hypertension type: primary hypertension Qualified Code(s): I10 - Essential (primary) hypertension (3) UTI (urinary tract infection) Current Visit: Yes Status: Chronic Qualifiers: Urinary tract infection type: acute cystitis Hematuria presence: without hematuria Qualified Code(s): N30.00 - Acute cystitis without hematuria (4) Fever Current Visit: Yes Status: Acute Qualifiers: Fever type: unspecified Qualified Code(s): R50.9 - Fever, unspecified - Plan -Previous urine culture grew serratia with sensitivity to rocephin. Will continue and follow current culture -Continue gentle IV hydration -Morphine PRN pain -Wound care consult for sacral wound -Monitor and replete electrolytes per protocol -Reconcile and continue home medications -Lovenox for VTE ppx -Full code Discharge Plan: Home Plan to discharge in: 48 Hours - Advance Directives Does patient have a Living Will: No Does patient have a Durable POA for Healthcare: Yes - Code Status/Comfort Care Code Status Assessed: Yes (Full) Critical Care: No Time Spent Managing Pts Care (In Minutes): 50
[2022-03-14] MEDS ORDERED: VANCOMYCIN 1 GM/VIAL ONE (06:30)
[2022-03-14] MEDS ORDERED: VANCOMYCIN 500 MG/VIAL ONE (06:30)
[2022-03-14] MEDS ORDERED: NA CHLORIDE 0.9% 250 ML ONE (06:31)
[2022-03-14 10:55] VITALS: TEMP 99.1
[2022-03-14 11:15] VITALS: O2SAT 100
[2022-03-14 11:17] VITALS: BP 141/92
--- NOTE | 2022-03-14 11:58 | RAD REPORT ---
EXAM DESCRIPTION: RAD - Chest Single View - 03/14/2022 4:14 am CLINICAL HISTORY: The patient is 36 years old and is Male; Cough TECHNIQUE: Frontal view of the chest. COMPARISON: No relevant prior studies available. FINDINGS: Lungs: Prominent interstitial markings which may indicate interstitial edema. No consoli dation. Pleural space: Unremarkable. No pneumothorax. Heart: Unremarkable. Mediastinum: Unremarkable. Bones/joints: Unremarkable. IMPRESSION: Prominent interstitial markings which may indicate interstitial edema. No consolidation. Electronically signed by: Vivek Kumar MD 03/14/2022 5:26 AM CDT Due to temporary technical issues with the PACS/Fluency reporting system, reports are being signed by the in house radiologists without review as a courtesy to insure prompt reporting. The interpreting radiologist is fully responsible for the content of the report.
--- NOTE | 2022-03-14 13:35 | RAD REPORT ---
EXAM DESCRIPTION: CT - Abdomen Pelvis W Contrast - 03/14/2022 6:55 am CLINICAL HISTORY: The patient is 36 years old and is Male; LOWER ABD PAIN TECHNIQUE: Axial computed tomography images of the abdomen and pelvis with intravenous contrast. S agittal and coronal reformatted images were created and reviewed. This CT exam was performed using one or more of the following dose reduction techniques: automated exposure control, adjustment of t he mA and/or kV according to patient size, and/or use of iterative reconstruction technique. COMPARISON: CT abdomen pelvis April 17, 2021. FINDINGS: Lung bases: Unremarkable. No mass. No consolidation. ABDOMEN: Liver: Unremarkable. No mass. Gallbladder and bile ducts: Unremarkable. No calcified stones. No ductal dilation. Pancreas: No findings to suggest acute pancreatitis. No mass visualized. No ductal dilation. Spleen: Unremarkable. No splenomegaly. Adrenals: Unremarkable. No mass. Kidneys and ureters: Unremarkable. No solid mass. No hydronephrosis. Stomach and bowel: No bowel dilatation or obstruction. No bowel wall thickening. PELVIS: Appendix: The visualized appendix is normal. No pericecal inflammation to suggest acute appendici tis. Bladder: Diffuse bladder wall thickening with mild mucosal enhancement. Bladder is not well distended. No stones. Reproductive: Left hydrocele. Postoperative changes in the right inguinal region/scrotum. Skin th ickening in the right groin without abscess. Condom catheter noted. Possible fluid/urine in the proximal penile urethra. ABDOMEN and PELVIS: Intraperitoneal space: Unremarkable. No free air. No significant fluid collection. Bones/joints: Deep posterior left ischial decubitus ulceration with fistulous tract and/or absces s, near the bone, 2.1 x 3.1 x 5.4 cm. Changes in the adjacent left ischium are consistent with osteom yelitis. Bilateral SI joint ankylosis. Old T12 compression fracture with gibbus deformity. T12 laminectomy with thoracolumbar spinal hardware. Soft tissues: Muscular fatty atrophy in the gluteal regions, hips and thighs. Vasculature: IVC filter noted. No abdominal aortic aneurysm. Lymph nodes: No pathologically enlarged lymph nodes. IMPRESSION: 1. Deep left ischial decubitus wound with fistulous tract and/or abscess near the bone , 2.1 x 3.1 x 5.4 cm. Changes in the adjacent left ischium are consistent with osteomyelitis. 2. Diffuse bladder wall thickening with mild mucosal enhancement. Findings may be secondary to cyst itis/UTI and/or neurogenic bladder. 3. Left hydrocele. Postoperative changes in the right inguinal region/scrotum. Skin thickening in t he right groin without abscess. 4. Spine postoperative changes again noted. 5. Additional non-emergent findings as above. Electronically signed by: Olive Juares MD 03/14/2022 5:51 AM CDT Due to temporary technical issues with the PACS/Fluency reporting system, reports are being signed by the in house radiologists without review as a courtesy to insure prompt reporting. The interpreting radiologist is fully responsible for the content of the report.
== END 2022-03-14 11:00 | disposition short-term general hospital (02) | DRG 871 ==
LOC: ER 00:10 → ERHOLD 05:09
PROVIDERS: ADMIT Internal Medicine; ATTEND Internal Medicine
DX: A41.9 Sepsis, unspecified organism (principal); L89.154 Pressure ulcer of sacral region, stage 4; L02.31 Cutaneous abscess of buttock; N30.00 Acute cystitis without hematuria; G82.20 Paraplegia, unspecified; M86.8X8 Other osteomyelitis, other site; I10 Essential (primary) hypertension; R65.20 Severe sepsis without septic shock; F17.210 Nicotine dependence, cigarettes, uncomplicated; Z60.2 Problems related to living alone; Z28.310 Unvaccinated for COVID-19; Z79.899 Other long term (current) drug therapy; Z20.822 Contact with and (suspected) exposure to COVID-19
CPT/HCPCS: 36415; 71045; 74177; 80053; 81003; 81015; 83605; 83690; 84145; 85025; 87086; 87088; 87811; 99285; J2405; J3370; J7030; J7050; Q9967

== ENCOUNTER 2022-05-25 03:40 | Emergency (ER) | payer OTHER ==
--- OUTSIDE RECORDS SUMMARY | 2022-05-25 03:47 | XMS REPORT | Continuity of Care Document ---
:1985 Author Organization [facility] t Address [address] [place] [address] [place] [id number] Care Team Providers Name Role Phone Gabriella Giles Primary Care Physician TIM MORALEZ Attending Clinician Unavailable YUMI BRITO Attending Clinician Unavailable ADRIAN RUIZ Attending Clinician Unavailable ALISE MUÑOZ RP Attending Clinician Unavailable PER HEARN Attending Clinician Unavailable Eran Feliz MD Attending Clinician Per Hearn NP Attending Clinician [facility] Attending Clinician Unavailable Alise Muñoz MD, Rp Attending Clinician JOSE JUAN YA Attending Clinician Unavailable Fina Rogers S Attending Clinician Jose Juan Ya MD Attending Clinician Lab, Ang - Db Attending Clinician Unavailable Gabriella Giles Attending Clinician GABRIELLA PATEL Attending Clinician Unavailable Ramo LUCAS, Elena Reyes Attending Clinician JOSELO BLANCO Attending Clinician Unavailable Cori SIN, Janessa Michael Attending Clinician Joselo Blanco MD Attending Clinician Adrian Ruiz MD Attending Clinician Doctor Unassigned, Delmar Attending Clinician Unavailable THEE DOWNING Attending Clinician Unavailable Salina CONNOR, Thee Attending Clinician Tim Moralez DO Attending Clinician Lani Callahan MD Attending Clinician Yee Neff CRNA Attending Clinician Only, Adc Test Attending Clinician Unavailable Maurizio Carpenter MD Attending Clinician MAURIZIO CARPENTER Attending Clinician Unavailable 2, [facility] Lab Attending Clinician Unavailable EWELINA WHITLEY Attending Clinician Unavailable HASMUKH GAONA Attending Clinician Unavailable Katt Vega LMSW Attending Clinician Yun Oliver MD Attending Clinician YUN OLIVER Attending Clinician Unavailable Padmaja Bradley Attending Clinician Unavailable AB BREAUX Attending Clinician Unavailable Ab Breaux DO Attending Clinician Sarita Trimble RN Attending Clinician Unavailable Carlita Hope Attending Clinician GRAMM, ALICIA A Attending Clinician Unavailable Gramm MUSIC LEADER, Alicia A Attending Clinician MEGAN PARKER Attending Clinician Unavailable Christie CONNOR, García Attending Clinician Indu Gambino MD Attending Clinician Megan Parker MD Attending Clinician Pob, Adc Lab Main Attending Clinician Unavailable SALMA DE LA TORRE Attending Clinician Unavailable Salma De La Torre MD Attending Clinician 1, [facility] Lab Attending Clinician Unavailable TIM MORALEZ Admitting Clinician Unavailable FINA TEJADA Admitting Clinician Unavailable JOSELO LBANCO Admitting Clinician Unavailable Joselo Blanco MD Admitting Clinician Tim Moralez DO Admitting Clinician THEE DOWNING Admitting Clinician Unavailable Thee Downing MD Admitting Clinician EWELINA WHITLEY Admitting Clinician Unavailable YUN OLIVER Admitting Clinician Unavailable INDU GAMBINO Admitting Clinician Unavailable Payers Payer Name Policy Type Policy Number Effective Date Expiration Date Flavia francisco [facility] [place] STAR [id number] 2017 00:00:00 PLUS GWENDOLYN [facility] STAR [id number] 2021 00:00:00 PLAN Problems Condition Condition Condition Status Onset Resolution Last Treating Co mments Source Name Details Category Date Date Treatment Clinician Date Osteomyeli Osteomyeli Disease Active U nivers tis tis 9-07 ity of 00:00: [place] 00 Medical Branch 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 Added automatic ally from request for surgery [id number] History of History of Disease Active U nivers paraplegia paraplegia 1-13 it y of 00:00: [place] [facility] Infection Infection Disease Active Uni vers due to due to 1-11 ity of ESBL-produ ESBL[place]produ [place] 00 Medical [place] Esc[place] Br anch a coli a coli Pressure Pressure Disease Active 2020-07 Unive rs ulcer ulcer 2-27 ity of 00:00: [place] [facility] Pressure Pressure Disease Active 2020-07 Unive rs ulcer ulcer 2-27 ity of 00:00: [place] [facility] Epididymit Epididymit Disease Active 2020-[address] [facility] Obesity Obesity Disease Active 2016-07 Univers 2-21 ity of 00:00: [place] [facility] Tobacco Tobacco Disease Active 2016-07 Univers abuse abuse 2-21 ity of 00:00: [place] [facility] HTN HTN Disease Active 2016-07 Univers (hypertens (hypertens 0-16 it y of ion) ion) 00:00: [place] [facility] Sepsis Sepsis Disease Active 2016-07 Univers 0-16 ity of 00:00: [place] 00 Medical Branch Bacteremia Bacteremia Disease Active 2016-07 U nivers 0-16 ity of 00:00: [place] [facility] Ureteritis Ureteritis Disease Active U nivers 8-12 ity of 00:00: [place] 00 Medical Branch UTI UTI Disease Active Univers (urinary (urinary 6-22 ity of tract tract 00:00: [place] infection) infection) 00 Me dical Branch Fever Fever Disease Active Univers 6-22 ity of 00:00: [place] 00 Medical Branch Leukocytos Leukocytos Disease Active U nivers is is 6-22 ity of 00:00: [place] 00 Medical Branch Allergies, Adverse Reactions, Alerts Allergy Allergy Status Severity Reaction(s) Onset Inactive Treating Comm ents Source Name Type Date Date Clinician NO KNOWN Allergy Active [facility] NO KNOWN Drug Active Univers ALLERGIE Class ity of S [facility] Family History Family Member Diagnosis Comments Start Date Stop Date Source Natural father No Significant Univer sity of [place] Medical Problems Medical Branch Natural mother No Significant [facility] Problems [facility] Branch Social History Social Habit Start Date Stop Date Quantity Comments Source History of tobacco 2022-02-20 Cigarette Smoker University of use 00:00:00 [facility] History [facility] University o f [facility] SDME University o f Alcohol Std Drinks [facility] History [facility] University o f Alcohol Binge [facility] Branch Exposure to 2022-05-04 2022-05-14 Not sure University of SARS-CoV-2 (event) 00:00:00 12:08:00 [facility] Alcohol Comment 2022-04-19 2022-04-19 social Universit y of 00:00:00 00:00:00 [facility] Cigarettes smoked 2022-04-19 2022-04-19 Univers ity of current (pack per 00:00:00 00:00:00 [facility] [place] ) - Reported Branch Cigarette 2022-04-19 2022-04-19 University of pack-years 00:00:00 00:00:00 [facility] Education 2022-04-19 2022-04-19 14 University of 00:00:00 00:00:00 [facility] Tobacco Comment 2022-03-14 2022-03-14 3 cigarettes Univers ity of 00:00:00 00:00:00 daily. [facility] Tobacco use and 2021-04-17 2021-04-17 Never used [facility] exposure 00:00:00 00:00:00 [facility] Alcohol intake 2021-04-17 2021-04-17 Ex-drinker GENEVIEVE Leiva es 00:00:00 00:00:00 (finding) [facility] Sex [birth year] GENEVIEVE Marie 00:00:00 00:00:00 [facility] Smoking Status Start Date Stop Date Source Smokes tobacco daily 2022-04-19 00:00:00 Univers ity of [facility] Never smoker [facility] Medications Ordered Filled Start Stop Current Ordering Indication Dosage Frequency Signature Comments Components Source Medication Medication Date Date Medication? Clinician (SIG) Name Name NaCl 0.9% 2021-07- No 30mL/kg at 999 Un gadiel (NS) bolus 0-28 10-28 mL/hr, ity of infusion 08:45: 09:50 3,498 [place] 3,498 mL 00 :00 (30 mL/kg Medica l ?116.6 Branch kg), IV Infusion, ONCE, 1 dose, On [facility] 05/04/22 at 0345, STAT iopamidol 2021-07- No [id number] 100mL 100 mL, Univers (ISOVUE 0-28 10-28 Intravenou ity o f 370-500 mL) 08:15: 08:15 s, ONCE, 1 [place] injection 00 :00 dose, On Medica l 100 mL [facility] 05/04/22 at 0315, Routine cefTRIAXone 2021-07- No 1000mg 1,000 mg, Univers (ROCEPHIN) 0-28 10-28 IV ity of 1,000 mg in 07:45: 08:29 [place], [place] NaCl 0.9% 00 :00 ONCE, 1 Medical (NS) 50 mL dose, On Branc h MINI-BAG [facility] 05/04/22 at 0245, Administer over 30 Minutes, 50 mL
Reas on for Anti-Infec tive: Documented Infection< br>Documen brook Infection Site: Urine<br&g t;Duration of Therapy: Other (see Comments) ondansetron 2021-07- No 4mg 4 mg, Slow Univers (ZOFRAN 0-28 10-28 IV Push, ity of (PF)) 06:45: 07:01 ONCE, 1 [place] injection 4 00 :00 dose, On Medi jd mg Fri Branch 05/04/22 at 0145, ISABELA morpHINE (4 2021-07- No 4mg 4 mg, Slow Univers mg/mL) 0-28 10-28 IV Push, ity of injection 4 06:45: 07:01 ONCE, 1 [place] mg 00 :00 dose, On Medical Fri Branch 05/04/22 at 0145, STAT traMADoL 50 2021-07 Yes [id number] 50mg Take 1 Univ ers mg tablet 0-28 tablet by ity o f 00:00: mouth [place] 00 every 6 Medical (six) Branch hours as needed (pain). Indication s: acute pain ondansetron 2021-07 Yes [id number] 1 or 2 Univers 4 mg tablet 0-28 tablets ity o f 00:00: every 6 [place] 00 hours as Medical needed for Branch nausea traMADoL 50 2021-07 Yes [id number] 50mg Take 1 Univ ers mg tablet 0-28 tablet by ity o f 00:00: mouth [place] 00 every 6 Medical (six) Branch hours as needed (pain). Indication s: acute pain ondansetron 2021-07 Yes [id number] 1 or 2 Univers 4 mg tablet 0-28 tablets ity o f 00:00: every 6 [place] 00 hours as Medical needed for Branch nausea traMADoL 50 2021-07 Yes [id number] 50mg Take 1 Univ ers mg tablet 0-28 tablet by ity o f 00:00: mouth [place] 00 every 6 Medical (six) Branch hours as needed (pain). Indication s: acute pain ondansetron 2021-07 Yes [id number] 1 or 2 Univers 4 mg tablet 0-28 tablets ity o f 00:00: every 6 [place] 00 hours as Medical needed for Branch nausea traMADoL 50 2021-07 Yes [id number] 50mg Take 1 Univ ers mg tablet 0-28 tablet by ity o f 00:00: mouth [place] 00 every 6 Medical (six) Branch hours as needed (pain). Indication s: acute pain ondansetron 2021-07 Yes [id number] 1 or 2 Univers 4 mg tablet 0-28 tablets ity o f 00:00: every 6 [place] 00 hours as Medical needed for Branch nausea traMADoL 50 2021-07 Yes [id number] 50mg Take 1 Univ ers mg tablet 0-28 tablet by ity o f 00:00: mouth [place] 00 every 6 Medical (six) Branch hours as needed (pain). Indication s: acute pain ondansetron 2021-07 Yes [id number] 1 or 2 Univers 4 mg tablet 0-28 tablets ity o f 00:00: every 6 [place] 00 hours as Medical needed for Branch nausea traMADoL 50 2021-07 Yes [id number] 50mg Take 1 Univ ers mg tablet 0-28 tablet by ity o f 00:00: mouth [place] 00 every 6 Medical (six) Branch hours as needed (pain). Indication s: acute pain ondansetron 2021-07 Yes [id number] 1 or 2 Univers 4 mg tablet 0-28 tablets ity o f 00:00: every 6 [place] 00 hours as Medical needed for Branch nausea traMADoL 50 2021-07 Yes [id number] 50mg Take 1 Univ ers mg tablet 0-28 tablet by ity o f 00:00: mouth [place] 00 every 6 Medical (six) Branch hours as needed (pain). Indication s: acute pain ondansetron 2021-07 Yes [id number] 1 or 2 Univers 4 mg tablet 0-28 tablets ity o f 00:00: every 6 [place] 00 hours as Medical needed for Branch nausea traMADoL 50 2021-07 Yes [id number] 50mg Take 1 Univ ers mg tablet 0-28 tablet by ity o f 00:00: mouth [place] 00 every 6 Medical (six) Branch hours as needed (pain). Indication s: acute pain ondansetron 2021-07 Yes [id number] 1 or 2 Univers 4 mg tablet 0-28 tablets ity o f 00:00: every 6 [place] 00 hours as Medical needed for Branch nausea traMADoL 50 2021-07 Yes [id number] 50mg Take 1 Univ ers mg tablet 0-28 tablet by ity o f 00:00: mouth [place] 00 every 6 Medical (six) Branch hours as needed (pain). Indication s: acute pain ondansetron 2021-07 Yes [id number] 1 or 2 Univers 4 mg tablet 0-28 tablets ity o f 00:00: every 6 [place] 00 hours as Medical needed for Branch nausea cefdinir 2021-07- Yes [id number] 300mg Take 1 U nivers 300 mg 0-28 05-15 capsule by ity of capsule 00:00: 05:59 mouth [place] 00 :00 every 12 Medical (twelve) Branch hours for 10 days. cefdinir 2021-07- Yes [id number] 300mg Take 1 U nivers 300 mg 0-28 11-08 capsule by ity of capsule 00:00: 05:59 mouth [place] 00 :00 every 12 Medical (twelve) Branch hours for 10 days. cefdinir 2021-07- Yes [id number] 300mg Take 1 U nivers 300 mg 0-28 11-08 capsule by ity of capsule 00:00: 05:59 mouth [place] 00 :00 every 12 Medical (twelve) Branch hours for 10 days. cefdinir 2021-07- Yes [id number] 300mg Take 1 U nivers 300 mg 0-28 11-08 capsule by ity of capsule 00:00: 05:59 mouth [place] 00 :00 every 12 Medical (twelve) Branch hours for 10 days. cefdinir 2021-07- Yes [id number] 300mg Take 1 U nivers 300 mg 0-28 11-08 capsule by ity of capsule 00:00: 05:59 mouth [place] 00 :00 every 12 Medical (twelve) Branch hours for 10 days. cefdinir 2021-07- Yes [id number] 300mg Take 1 U nivers 300 mg 0-28 11-08 capsule by ity of capsule 00:00: 05:59 mouth [place] 00 :00 every 12 Medical (twelve) Branch hours for 10 days. ciprofloxac 2021-07- Yes 500mg 500 mg, U nivers in HCl 004-28 Oral, ity of (CIPRO) 23:00: 22:59 Q12HA2, 12 [place] as tablet 500 00 :00 doses, Medical mg First dose Branch on 04/22/22 at 1800, Last dose on 04/28/22 at 0600, ISABELA
Re ason for Anti-Infec tive: Documented Infection< br>Documen brook Infection Site: Blood
D uration of Therapy: 7 days KCL 2021-07- No 40meq 40 mEq, Univers (KLOR-CON 0-16 10-16 Oral, ity of M20) tablet 14:00: 15:03 ONCE, 1 [place] 40 mEq 00 :00 dose, On Medical Sun Branch 04/22/22 at 0900, Routine morpHINE (4 2021-07 Yes 4mg 4 mg, Slow Univers mg/mL) 0-16 IV Push, ity of injection 4 00:44: Q4HPRN, [place] as mg 55 Starting Medical on Sat Branch 04/21/22 at 1944, Until Discontinu ed, Routine, Pain (scale 7-10) HYDROcodone 2021-07- Yes 1{tbl} 1 tablet, Univers -acetaminop 0-16 10-18 Oral, ity of hen (NORCO 00:44: 00:43 Q6HPRN, [place] as 5) 5-325 mg 43 :43 Starting Medi jd tablet 1 on Sat Branch tablet 04/21/22 at 1944, Until 04/23/22 at 1943, Routine, Pain (scale 4-6) sodium 2021-07 Yes [id number] Apply to Univers hypochlorit 0-16 [id number] area(s) 2 i ty of e 0.25% 00:00: (two) [place] solution 00 times Medical daily. Branch sodium 2021-07 Yes [id number] Apply to Univers hypochlorit 0-16 [id number] area(s) 2 i ty of e 0.25% 00:00: (two) [place] solution 00 times Medical daily. Branch sodium 2021-07 Yes [id number] Apply to Univers hypochlorit 0-16 [id number] area(s) 2 i ty of e 0.25% 00:00: (two) [place] solution 00 times Medical daily. Branch sodium 2021-07 Yes [id number] Apply to Univers hypochlorit 0-16 [id number] area(s) 2 i ty of e 0.25% 00:00: (two) [place] solution 00 times Medical daily. Branch sodium 2021-07 Yes [id number] Apply to Univers hypochlorit 0-16 [id number] area(s) 2 i ty of e 0.25% 00:00: (two) [place] solution 00 times Medical daily. Branch sodium 2021-07 Yes [id number] Apply to Univers hypochlorit 0-16 [id number] area(s) 2 i ty of e 0.25% 00:00: (two) [place] solution 00 times Medical daily. Branch sodium 2021-07 Yes [id number] Apply to Univers hypochlorit 0-16 [id number] area(s) 2 i ty of e 0.25% 00:00: (two) [place] solution 00 times Medical daily. Branch sodium 2021-07 Yes [id number] Apply to Univers hypochlorit 0-16 [id number] area(s) 2 i ty of e 0.25% 00:00: (two) [place] solution 00 times Medical daily. Branch sodium 2021-07 Yes [id number] Apply to Univers hypochlorit 0-16 [id number] area(s) 2 i ty of e 0.25% 00:00: (two) [place] solution 00 times Medical daily. Branch sodium 2021-07 Yes [id number] Apply to Univers hypochlorit 0-16 [id number] area(s) 2 i ty of e 0.25% 00:00: (two) [place] solution 00 times Medical daily. Branch sodium 2021-07 Yes [id number] Apply to Univers hypochlorit 0-16 [id number] area(s) 2 i ty of e 0.25% 00:00: (two) [place] solution 00 times Medical daily. Branch sodium 2021-07 Yes [id number] Apply to Univers hypochlorit 0-16 [id number] area(s) 2 i ty of e 0.25% 00:00: (two) [place] solution 00 times Medical daily. Branch sodium 2021-07 Yes [id number] Apply to Univers hypochlorit 0-16 [id number] area(s) 2 i ty of e 0.25% 00:00: (two) [place] solution 00 times Medical daily. Branch sodium 2021-07 Yes [id number] Apply to Univers hypochlorit 0-16 [id number] area(s) 2 i ty of e 0.25% 00:00: (two) [place] solution 00 times Medical daily. Branch sodium 2021-07 Yes [id number] Apply to Univers hypochlorit 0-16 [id number] area(s) 2 i ty of e 0.25% 00:00: (two) [place] solution 00 times Medical daily. Branch ciprofloxac 2021-07- Yes [id number] 500mg Take 1 Univers in HCl 500 0-16 10-24 tablet by ity of mg tablet 00:00: 04:59 mouth [place] 00 :00 every 12 Medical (twelve) Branch hours for 7 days. ciprofloxac 2021-07- Yes [id number] 500mg Take 1 Univers in HCl 500 0-16 10-24 tablet by ity of mg tablet 00:00: 04:59 mouth [place] 00 :00 every 12 Medical (twelve) Branch hours for 7 days. ciprofloxac 2021-07- Yes [id number] 500mg Take 1 Univers in HCl 500 0-16 10-24 tablet by ity of mg tablet 00:00: 04:59 mouth [place] 00 :00 every 12 Medical (twelve) Branch hours for 7 days. ceFEPIme 2021-07- No 2000mg 2,000 mg, U nivers (MAXIPIME) 0-14 10-16 IV ity of 2,000 mg in 21:00: 13:14 [place], [place] NaCl 0.9% 00 :32 Q8H ABX, Medica l (NS) 50 mL 41 doses, Bran ch MINI-BAG First dose (after last modificati on) on Sat04/20/22 at 1600, Last dose on Sat05/04/22 at 0000, Administer over 4 Hours, 50 mL
Reas on for Anti-Infec tive: Documented Infection< br>Documen brook Infection Site: Skin / Soft Tissue
Duration of Therapy: 14 days ceFEPIme 2021-07 No 1000mg 1,000 mg, U nivers (MAXIPIME) 0-14 10-14 IV ity of 1,000 mg in 13:00: 13:29 [place], [place] NaCl 0.9% 00 :41 Q8H ABX, Medica l (NS) 50 mL 42 doses, Bran ch MINI-BAG First dose on Sat04/20/22 at 0800, Last dose on Sat05/04/22 at 0000, Administer over 4 Hours, 50 mL
Reas on for Anti-Infec tive: Documented Infection& lt;br>Docu mented Infection Site: Skin / Soft Tissue
Duration of Therapy: 14 days ceFEPIme 2021-07 No 1000mg 1,000 mg, U nivers (MAXIPIME) 0-14 10-14 IV ity of 1,000 mg in 05:15: 05:51 [place], [place] NaCl 0.9% 00 :00 ONCE, 1 Medical (NS) 50 mL dose, On Branc h MINI-BAG Sat04/20/22 at 0015, Administer over 30 Minutes, 50 mL
Reas on for Anti-Infec tive: Documented Infection< br>Documen brook Infection Site: Skin / Soft Tissue
Duration of Therapy: 14 days lactated 2021-07- No 1000mL at 500 [facility] ers ringers IV 0-14 10-14 mL/hr, ity of infusion 05:00: 04:53 1,000 mL, [place] as 1,000 mL 00 :22 IV Medical Infusion, Branch ONCE, 1 dose, On Sat04/20/22 at 0000, STAT vancomycin 2021-07- No 15mg/kg 1,500 mg Univers (VANCOCIN) 0-14 -15 (rounded ity of 1,500 mg in 04:30: 00:00 from 1,749 [place] NaCl 0.9% 00 :53 mg = 15 Medical (NS) 500 mL mg/kg Branch VIAL-MATE ?116.6 IV kg), IV piggyback Piggyback, Q12H ABX, 28 doses, First dose on Sat04/19/22 at 2330, Last dose on Sat05/03/22 at 1130, Administer over 90 Minutes, 500 mL
R ezio for Anti-Infec tive: Documented Infection< br>Documen brook Infection Site: Skin / Soft Tissue
Duration of Therapy: 14 days ALPRAZolam 2021-07 Yes .5mg 0.5 mg, [facility] ers (XANAX) 0-14 Oral, ity of tablet 0.5 02:35: QHSPRN, [place] mg 13 Starting Medical on [facility] Branch 04/19/22 at 2135, Until Discontinu ed, Routine, Anxiety, Insomnia sodium 2021-07 Yes Topical, Univers hypochlorit 0-14 BID, First it y of e 0.25% 01:00: dose on [place] (DAKIN'S Sat Medical SOLUTION) 04/19/22 Branch solution at 2000, Until Discontinu ed, Routine ibuprofen 2021-07 Yes 400mg 400 mg, [facility] ers (IBU) 0-14 Oral, ity of tablet 400 00:50: Q6HPRN, [place] mg 13 Starting Medical on [facility] 04/19/22 at 1950, Until Discontinu ed, Routine, Temp > 38.5 C enoxaparin 2021-07 Yes 40mg 40 mg, Unive rs (LOVENOX) 0-13 Subcutaneo ity of injection 22:00: [place], DAILY, [place] 40 mg 00 First dose Medical on [facility] 04/19/22 at 1700, Until Discontinu ed, Routine NaCl 0.9% 2021-07 Yes 1000mL at 125 Univ ers (NS) IV 0-13 mL/hr, IV ity of infusion 20:45: Infusion, [place] 1,000 mL 00 CONTINUOUS Medic al , Starting Branch on [facility] 04/19/22 at 1545, Until Discontinu ed, Routine ondansetron 2021-07 Yes 4mg 4 mg, Slow Univers (ZOFRAN 0-13 IV Push, ity of (PF)) 20:34: Q6HPRN, [place] injection 4 03 Starting Medi jd mg on [facility] 04/19/22 at 1534, Until Discontinu ed, Routine, Nausea and Vomiting (N/V) morpHINE (2 2021-07- No 4mg 4 mg, Slow Univers mg/mL) 0-13 10-14 IV Push, ity of injection 4 20:34: 20:33 Q4HPRN, [place] mg 00 :00 Starting Medical on [facility] 04/19/22 at 1534, Until 04/20/22 at 1533, Routine, Pain (scale 7-10) HYDROcodone 2021-07- No 1{tbl} 1 tablet, Univers -acetaminop 0-13 10-15 Oral, ity of hen (NORCO 20:33: 20:32 Q6HPRN, [place] 5) 5-325 mg 59 :59 Starting Medi jd tablet 1 on [facility] tablet 04/19/22 at 1533, Until 04/21/22 at 1532, Routine, Pain (scale 4-6) acetaminoph 2021-07 Yes 650mg 650 mg, Un gadiel en 0-13 Oral, ity of (TYLENOL) 20:33: Q6HPRN, [place] tablet 650 50 Starting Medic al mg on [facility] 04/19/22 at 1533, Until Discontinu ed, Routine, Pain (scale 1-3), Temp > 38.5 C iopamidol 2021-07 No [id number] 75mL 75 mL, Univers (ISOVUE 04-19 Intravenou ity o f 370-500 mL) 18:45: 18:45 s, ONCE, 1 [place] injection 00 :00 dose, On Medica l 75 mL [place] Branch 04/19/22 at 1345, Routine ketorolac 2021-07 No 30mg 30 mg, Unive rs (TORADOL) 04-19 Slow IV ity of injection 16:00: 15:31 Push, [place] 30 mg 00 :00 ONCE, 1 Medical dose, On Branch Gita 04/19/22 at 1100, Routine NaCl 0.9% 2021-07 30mL/kg at 999 Un gadiel (NS) bolus 04-19 mL/hr, ity of infusion 15:45: 17:28 3,498 mL [place] 3,498 mL 00 :00 (30 mL/kg Medica l ?116.6 Branch kg), IV Infusion, ONCE, 1 dose, On [place]ita 04/19/22 at 1045, ISABELA ondansetron 2021-07 No 4mg 4 mg, Slow Univers (ZOFRAN 04-19 IV Push, ity of (PF)) 15:30: 15:30 ONCE, 1 [place] injection 4 00 :00 dose, On Medi jd mg [place] Branch 04/19/22 at 1030, ISABELA morpHINE (4 2021-07 No 4mg 4 mg, Slow Univers mg/mL) 04-19 IV Push, ity of injection 4 15:00: 15:30 ONCE, 1 [place] mg 00 :00 dose, On Medical [place] Branch 04/19/22 at 1000, STAT acetaminoph 2021-07 No 650mg 650 mg, U nivers en 04-19 Oral, ity of (TYLENOL) 15:00: 15:29 ONCE, 1 [place] tablet 650 00 :00 dose, On Medic al mg [place] Branch 04/19/22 at 1000, ISABELA cefTRIAXone 2021-07 No 1000mg 1,000 mg, Univers (ROCEPHIN) 0-13 10-13 IV ity of 1,000 mg in 15:00: 16:01 [place], [place] NaCl 0.9% 00 :00 ONCE, 1 Medical (NS) 50 mL dose, On Branc h MINI-BAG Gita 04/19/22 at 1000, Administer over 30 Minutes, 50 mL
Reas on for Anti-Infec tive: Empiric Therapy for Suspected Infection< br>Empiric Therapy Site: Urine
D uration of therapy: 72 hours multivit-ir 2021- No [id number] 1{tbl} Take 1 Univers on-FA-calci 03-22 tablet by it y of um-mins 9 00:00: 00:00 mouth in [facility] as mg iron-400 00 :00 the Medical mcg tablet morning Branch for 30 days. zinc 2021- Yes [id number] 50mg Take 1 Unive rs sulfate 50 03-21 capsule by it y of mg zinc 00:00: 04:59 mouth in [place] (220 mg) 00 :00 the Medical capsule morning Branch and 1 capsule at noon and 1 capsule in the evening. Do all this for 30 days. sodium 2021- Yes [id number] Apply to U nivers hypochlorit 03-21 area(s) 2 it y of e 0.125 % 00:00: 04:59 (two) [place] (DAKIN'S 00 :00 times Medical SOLUTION) daily for Branc h solution 30 days. zinc 2021- Yes [id number] 50mg Take 1 Unive rs sulfate 50 03-21-15 capsule by it y of mg zinc 00:00: 04:59 mouth in [place] (220 mg) 00 :00 the Medical capsule morning Branch and 1 capsule at noon and 1 capsule in the evening. Do all this for 30 days. sodium 2021- Yes [id number] Apply to U nivers hypochlorit 03-21 1015 area(s) 2 it y of e 0.125 % 00:00: 04:59 (two) [place] (DAKIN'S 00 :00 times Medical SOLUTION) daily for Branc h solution 30 days. zinc 2021- Yes [id number] 50mg Take 1 Unive rs sulfate 50 9-14 10-15 capsule by it y of mg zinc 00:00: :59 mouth in [place] (220 mg) 00 :00 the Medical capsule morning Branch and 1 capsule at noon and 1 capsule in the evening. Do all this for 30 days. sodium 2021- Yes [id number] Apply to U nivers hypochlorit 9-14 10-15 area(s) 2 it y of e 0.125 % 00:00: 04:59 (two) [place] (DAKIN'S 00 :00 times Medical SOLUTION) daily for Branc h solution 30 days. zinc 2021- Yes [id number] 50mg Take 1 Unive rs sulfate 50 9-14 10-15 capsule by it y of mg zinc 00:: :59 mouth in [place] (220 mg) 00 :00 the Medical capsule morning Branch and 1 capsule at noon and 1 capsule in the evening. Do all this for 30 days. sodium 2021- Yes [id number] Apply to U nivers hypochlorit 9-14 10-15 area(s) 2 it y of e 0.125 % 00:00: :59 (two) [place] (DA[facility]S 00 :00 times Medical SOLUTION) daily for Branc h solution 30 days. zinc 2021- Yes [id number] 50mg Take 1 Unive rs sulfate 50 9-14 10-15 capsule by it y of mg zinc 00:: :59 mouth in [place] (220 mg) 00 :00 the Medical capsule morning Branch and 1 capsule at noon and 1 capsule in the evening. Do all this for 30 days. sodium 2021- Yes [id number] Apply to U nivers hypochlorit 9-14 10-15 area(s) 2 it y of e 0.125 % 00:00: 04:59 (two) [place] ([facility] 00 :00 times Medical SOLUTION) daily for Branc h solution 30 days. zinc 2021- Yes [id number] 50mg Take 1 Unive rs sulfate 50 9-14 10-15 capsule by it y of mg zinc 00:00: 04:59 mouth in [place] (220 mg) 00 :00 the Medical capsule morning Branch and 1 capsule at noon and 1 capsule in the evening. Do all this for 30 days. sodium 2021- Yes [id number] Apply to U nivers hypochlorit 9-14 10-15 area(s) 2 it y of e 0.125 % 00:00: 04:59 (two) [place] ([facility] 00 :00 times Medical SOLUTION) daily for Branc h solution 30 days. zinc 2021- Yes [id number] 50mg Take 1 Unive rs sulfate 50 9-14 10-15 capsule by it y of mg zinc 00:00: 04:59 mouth in [place] (220 mg) 00 :00 the Medical capsule morning Branch and 1 capsule at noon and 1 capsule in the evening. Do all this for 30 days. sodium 2021- Yes [id number] Apply to U nivers hypochlorit 9-14 10-15 area(s) 2 it y of e 0.125 % 00:00: :59 (two) [place] ([facility] 00 :00 times Medical SOLUTION) daily for Branc h solution 30 days. zinc 2021- Yes [id number] 50mg Take 1 Unive rs sulfate 50 9-14 10-15 capsule by it y of mg zinc 00:: :59 mouth in [place] (220 mg) 00 :00 the Medical capsule morning Branch and 1 capsule at noon and 1 capsule in the evening. Do all this for 30 days. sodium 2021- Yes [id number] Apply to U nivers hypochlorit 9-14 10-15 area(s) 2 it y of e 0.125 % 00:00: 04:59 (two) [place] ([facility] 00 :00 times Medical SOLUTION) daily for Branc h solution 30 days. zinc 2021- Yes [id number] 50mg Take 1 Unive rs sulfate 50 9-14 10-15 capsule by it y of mg zinc 00:00: 04:59 mouth in [place] (220 mg) 00 :00 the Medical capsule morning Branch and 1 capsule at noon and 1 capsule in the evening. Do all this for 30 days. sodium 2021- Yes [id number] Apply to U nivers hypochlorit 9-14 10-15 area(s) 2 it y of e 0.125 % 00:00: 04:59 (two) [place] ([facility] 00 :00 times Medical SOLUTION) daily for Branc h solution 30 days. zinc 2021-0 2021- Yes [id number] 50mg Take 1 Unive rs sulfate 50 9-14 10-15 capsule by it y of mg zinc 00:00: 04:59 mouth in [place] (220 mg) 00 :00 the Medical capsule morning Branch and 1 capsule at noon and 1 capsule in the evening. Do all this for 30 days. sodium 2021- Yes [id number] Apply to U nivers hypochlorit 9-14 10-15 area(s) 2 it y of e 0.125 % 00:00: :59 (two) [place] ([facility]S 00 :00 times Medical SOLUTION) daily for Branc h solution 30 days. zinc 2021-2021- Yes [id number] 50mg Take 1 Unive rs sulfate 50 9-14 10-15 capsule by it y of mg zinc 00:00: :59 mouth in [place] (220 mg) 00 :00 the Medical capsule morning Branch and 1 capsule at noon and 1 capsule in the evening. Do all this for 30 days. sodium 2021- Yes [id number] Apply to U nivers hypochlorit 9-14 10-15 area(s) 2 it y of e 0.125 % 00:00: 04:59 (two) [place] ([facility] 00 :00 times Medical SOLUTION) daily for Branc h solution 30 days. zinc 2021- Yes [id number] 50mg Take 1 Unive rs sulfate 50 9-14 10-15 capsule by it y of mg zinc 00:00: 04:59 mouth in [place] (220 mg) 00 :00 the Medical capsule morning Branch and 1 capsule at noon and 1 capsule in the evening. Do all this for 30 days. sodium 2021- Yes [id number] Apply to U nivers hypochlorit 9-14 10-15 area(s) 2 it y of e 0.125 % 00:00: 04:59 (two) [place] ([facility] 00 :00 times Medical SOLUTION) daily for Branc h solution 30 days. zinc 2021-0 2021- Yes [id number] 50mg Take 1 Unive rs sulfate 50 9-14 10-15 capsule by it y of mg zinc 00:00: :59 mouth in [place] (220 mg) 00 :00 the Medical capsule morning Branch and 1 capsule at noon and 1 capsule in the evening. Do all this for 30 days. sodium 2021- Yes [id number] Apply to U nivers hypochlorit 9-14 10-15 area(s) 2 it y of e 0.125 % 00:00: 04:59 (two) [place] ([facility] 00 :00 times Medical SOLUTION) daily for Branc h solution 30 days. zinc 2021- Yes [id number] 50mg Take 1 Unive rs sulfate 50 9-14 10-15 capsule by it y of mg zinc 00:: :59 mouth in [place] (220 mg) 00 :00 the Medical capsule morning Branch and 1 capsule at noon and 1 capsule in the evening. Do all this for 30 days. sodium 2021- Yes [id number] Apply to U nivers hypochlorit 9-14 10-15 area(s) 2 it y of e 0.125 % 00:00: :59 (two) [place] ([facility] 00 :00 times Medical SOLUTION) daily for Branc h solution 30 days. zinc 2021- Yes [id number] 50mg Take 1 Unive rs sulfate 50 9-14 10-15 capsule by it y of mg zinc 00:: :59 mouth in [place] (220 mg) 00 :00 the Medical capsule morning Branch and 1 capsule at noon and 1 capsule in the evening. Do all this for 30 days. sodium 2021- Yes [id number] Apply to U nivers hypochlorit 9-14 10-15 area(s) 2 it y of e 0.125 % 00:00: 04:59 (two) [place] ([facility] 00 :00 times Medical SOLUTION) daily for Branc h solution 30 days. zinc 2021- Yes [id number] 50mg Take 1 Unive rs sulfate 50 9-14 10-15 capsule by it y of mg zinc 00:00: 04:59 mouth in [place] (220 mg) 00 :00 the Medical capsule morning Branch and 1 capsule at noon and 1 capsule in the evening. Do all this for 30 days. sodium 2021- Yes [id number] Apply to U nivers hypochlorit 9-14 10-15 area(s) 2 it y of e 0.125 % 00:00: 04:59 (two) [place] ([facility] 00 :00 times Medical SOLUTION) daily for Branc h solution 30 days. zinc 2021-0 2021- Yes [id number] 50mg Take 1 Unive rs sulfate 50 9-14 10-15 capsule by it y of mg zinc 00:00: 04:59 mouth in [place] (220 mg) 00 :00 the Medical capsule morning Branch and 1 capsule at noon and 1 capsule in the evening. Do all this for 30 days. sodium 2021- Yes [id number] Apply to U nivers hypochlorit 9-14 10-15 area(s) 2 it y of e 0.125 % 00:: :59 (two) [place] ([facility] 00 :00 times Medical SOLUTION) daily for Branc h solution 30 days. zinc 2021-2021- No [id number] 50mg Take 1 Unive rs sulfate 50 9-14 10-13 capsule by it y of mg zinc 00:00: 00:00 mouth in [place] (220 mg) 00 :00 the Medical capsule morning Branch and 1 capsule at noon and 1 capsule in the evening. Do all this for 30 days. sodium 2021-2021- No [id number] Apply to U nivers hypochlorit 9-14 10-13 area(s) 2 it y of e 0.125 % 00:00: 00:00 (two) [place] ([facility] 00 :00 times Medical SOLUTION) daily for Branc h solution 30 days. zinc 2021-0 2021- No [id number] 50mg Take 1 Unive rs sulfate 50 9-14 10-13 capsule by it y of mg zinc 00:00: 00:00 mouth in [place] (220 mg) 00 :00 the Medical capsule morning Branch and 1 capsule at noon and 1 capsule in the evening. Do all this for 30 days. sodium 2021-2021- No [id number] Apply to U nivers hypochlorit 9-14 10-13 area(s) 2 it y of e 0.125 % 00:00: 00:00 (two) [place] ([facility] 00 :00 times Medical SOLUTION) daily for Branc h solution 30 days. zinc 2021-0 2- No [id number] 50mg Take 1 Unive rs sulfate 50 03-21 capsule by it y of mg zinc 00:00: 00:00 mouth in [place] (220 mg) 00 :00 the Medical capsule morning Branch and 1 capsule at noon and 1 capsule in the evening. Do all this for 30 days. sodium 2021-0 2021- No [id number] Apply to U nivers hypochlorit 03-21 area(s) 2 it y of e 0.125 % 00:00: 00:00 (two) [place] ([facility] 00 :00 times Medical SOLUTION) daily for Branc h solution 30 days. zinc 2021-2021- No [id number] 50mg Take 1 Unive rs sulfate 50 03-21 capsule by it y of mg zinc 00:00: 00:00 mouth in [place] (220 mg) 00 :00 the Medical capsule morning Branch and 1 capsule at noon and 1 capsule in the evening. Do all this for 30 days. sodium 2021-2021- No [id number] Apply to U nivers hypochlorit 14 -13 area(s) 2 it y of e 0.125 % 00:00: 00:00 (two) [place] ([facility] 00 :00 times Medical SOLUTION) daily for Branc h solution 30 days. sodium 2021-0 2021- No [id number] Apply to U nivers hypochlorit -14 -14 area(s) 2 it y of e 0.025% 00:00: 00:00 (two) [place] Soln 00 :00 times Medical solution daily for Branch 30 days. sulfamethox 2- No [id number] 2{tbl} Take 2 Univers azole-trime 8-25 08-31 tablets by i ty of thoprim 00:00: 04:59 mouth in [place] (BACTRIM) 00 :00 the Medical 400-80 mg morning Branch per tablet and 2 tablets in the evening. Do all this for 5 days. collagenase 2021-2- No [id number] Apply to Univers 250 216 03-14 [id number] affected ity of unit/gram 00:00: 00:00 area(s) [facility] s ointment 00 :00 daily. Medical Branch ciprofloxac 2020-07 500mg Q.5D Take [address] in HCl 0-15 10-25 tablet [facility] (CIPRO) 500 00:00: 23:59 (500 mg Me dical MG tablet 00 :00 total) by Cente r mouth 2 (two) times daily for 10 days. Vital Signs Vital Name Observation Time Observation Value Comments Source Systolic blood 2022-05-14 18:09:00 139 mm[Hg] [facility]iver [facility] of [facility] Diastolic blood 2022-05-14 18:09:00 86 mm[Hg] [facility] Heart rate 2022-05-14 18:09:00 97 /min [facility] Body temperature 2022-05-14 18:09:00 35.94 [facility] Respiratory rate 2022-05-14 18:09:00 16 /min [facility] Body height 2022-05-14 18:09:00 185.4 cm [facility] Body weight 2022-05-14 18:09:00 116.574 kg [facility] BMI 2022-05-14 18:09:00 33.91 kg/m2 [facility] Oxygen saturation in 2022-05-14 18:09:00 98 /min [facility] Arterial blood by [facility] Pulse oximetry Branch Systolic blood 2022-05-04 09:00:00 104 mm[Hg] Univer sity of [facility] Diastolic blood 2022-05-04 09:00:00 61 mm[Hg] Unive rsity of [facility] Respiratory rate 2022-05-04 09:00:00 25 /min [facility] Heart rate 2022-05-04 05:35:00 115 /min [facility] Body temperature 2022-05-04 05:35:00 37.56 [facility] Body height 2022-05-04 05:35:00 185.4 cm [facility] Body weight 2022-05-04 05:35:00 116.574 kg [facility] [place] [facility] BMI 2022-05-04 05:35:00 33.91 kg/m2 [facility] [place] [facility] Oxygen saturation in 2022-05-04 05:35:00 95 /min [facility] of Arterial blood by [place] [facility] Pulse oximetry Branch Heart rate 2022-05-02 19:49:00 95 /min [facility] [place] [facility] Systolic blood 2022-05-02 19:23:00 129 mm[Hg] Univer sity of [facility] [place] [facility] Diastolic blood 2022-05-02 19:23:00 84 mm[Hg] Unive rsity of [facility] [place] [facility] Body temperature 2022-05-02 19:23:00 36.56 Emma [facility] [place] [facility] Body weight 2022-05-02 19:23:00 116.574 kg [facility] [place] [facility] BMI 2022-05-02 19:23:00 33.91 kg/m2 [facility] [place] [facility] Oxygen saturation in 2022-05-02 19:23:00 97 /min [facility] Arterial blood by [place] [facility] Pulse oximetry Branch Systolic blood 2022-04-22 20:13:00 141 mm[Hg] Univer sity of [facility] [place] [facility] Diastolic blood 2022-04-22 20:13:00 88 mm[Hg] Unive rsity of [facility] [place] [facility] Heart rate 2022-04-22 20:13:00 77 /min [facility] [place] [facility] Body temperature 2022-04-22 20:13:00 36.28 Emma [facility] [place] [facility] Respiratory rate 2022-04-22 20:13:00 18 /min [facility] [place] [facility] Oxygen saturation in 2022-04-22 20:13:00 97 /min University of Arterial blood by [place] [facility] Pulse oximetry Branch Body weight 2022-04-21 09:00:00 120.974 kg [facility] [place] [facility] BMI 2022-04-21 09:00:00 35.19 kg/m2 [facility] [place] [facility] Body height 2022-04-19 23:48:00 185.4 cm [facility] [place] [facility] Systolic blood 2022-04-16 18:24:00 138 mm[Hg] Univer sity of [facility] [place] [facility] Diastolic blood 2022-04-16 18:24:00 96 mm[Hg] Unive rsity of [facility] [place] [facility] Heart rate 2022-04-16 18:23:00 98 /min [facility] [place] [facility] Body weight 2022-04-16 18:23:00 116.574 kg [facility] [place] [facility] BMI 2022-04-16 18:23:00 33.91 kg/m2 [facility] [place] [facility] Oxygen saturation in 2022-04-16 18:23:00 97 /min University of Arterial blood by [place] [employer] [facility] Pulse oximetry Branch Systolic blood 2022-04-05 19:31:00 123 mm[Hg] Univer sity of [facility] [place] [facility] Diastolic blood 2022-04-05 19:31:00 79 mm[Hg] Unive rsity of [facility] [place] [facility] Heart rate 2022-04-05 19:31:00 110 /min [facility] [place] [facility] Body temperature 2022-04-05 19:31:00 36.5 Emma [facility] [place] [facility] Respiratory rate 2022-04-05 19:31:00 18 /min [facility] [place] [facility] Body height 2022-04-05 19:31:00 185.4 cm [facility] [place] [facility] Body weight 2022-04-05 19:31:00 116.574 kg [facility] [place] [facility] BMI 2022-04-05 19:31:00 33.91 kg/m2 [facility] [place] [facility] Oxygen saturation in 2022-04-05 19:31:00 96 /min University of Arterial blood by [facility] jd Pulse oximetry Branch Systolic blood 2022-04-04 15:58:00 133 mm[Hg] Univer sity of [facility] [place] [facility] Diastolic blood 2022-04-04 15:58:00 89 mm[Hg] Unive rsity of [facility] [place] [facility] Heart rate 2022-04-04 15:58:00 87 /min [facility] [place] [facility] Body temperature 2022-04-04 15:58:00 36.67 Emma [facility] [place] [facility] Body height 2022-04-04 15:58:00 185.4 cm [facility] [place] [facility] Body weight 2022-04-04 15:58:00 116.574 kg [facility] [place] [facility] BMI 2022-04-04 15:58:00 33.91 kg/m2 [facility] [place] [facility] Oxygen saturation in 2022-04-04 15:58:00 95 /min University of Arterial blood by [facility] Pulse oximetry Branch Systolic blood 2022-03-30 17:45:00 133 mm[Hg] Univer sity of [facility] [place] [facility] Diastolic blood 2022-03-30 17:45:00 83 mm[Hg] Unive rsity of [facility] [place] [facility] Heart rate 2022-03-30 17:45:00 100 /min [facility] [place] [facility] Body temperature 2022-03-30 17:45:00 36.33 Emma [facility] [place] [facility] Respiratory rate 2022-03-30 17:45:00 16 /min [facility] [place] [facility] Body height 2022-03-30 17:45:00 185.4 cm [facility] [place] [facility] Body weight 2022-03-30 17:45:00 116.574 kg [facility] [place] [facility] BMI 2022-03-30 17:45:00 33.91 kg/m2 [facility] [place] [facility] Oxygen saturation in 2022-03-30 17:45:00 97 /min University of Arterial blood by [facility] Pulse oximetry Branch HEIGHT 2021-04-18 08:11:00 188 cm WEIGHT 2021-04-18 08:11:00 113.399 kg HEIGHT 2021-04-18 08:11:00 188 cm WEIGHT 2021-04-18 08:11:00 113.399 kg Systolic blood 2022-03-21 18:14:00 145 mm[Hg] Univer sity of [facility] [place] [facility] Diastolic blood 2022-03-21 18:14:00 99 mm[Hg] Unive rsity of [facility] [place] [facility] Heart rate 2022-03-21 18:14:00 110 /min [facility] [place] [facility] Body temperature 2022-03-21 18:14:00 36 Emma [facility] [place] [facility] Respiratory rate 2022-03-21 18:14:00 18 /min [facility] [place] [facility] Oxygen saturation in 2022-03-21 18:14:00 96 /min [facility] of Arterial blood by [facility] Pulse oximetry Branch Body height 2022-03-14 16:48:00 185.4 cm [facility] Body weight 2022-03-14 16:48:00 116.484 kg [facility] BMI 2022-03-14 16:48:00 33.88 kg/m2 [facility] Systolic blood 2021-04-20 15:12:00 121 mm[Hg] [facility] Diastolic blood 2021-04-20 15:12:00 66 mm[Hg] [facility] Heart rate 2021-04-20 15:12:00 87 /min [facility] Body temperature 2021-04-20 15:12:00 35.72 Emma [facility] Respiratory rate 2021-04-20 15:12:00 18 /min [facility] Oxygen saturation in 2021-04-20 15:12:00 93 /min [facility] Arterial blood by [facility] nter Pulse oximetry Body height 2021-04-18 08:11:00 188 cm [facility] Body weight 2021-04-18 08:11:00 113.399 kg [facility] BMI 2021-04-18 08:11:00 32.10 kg/m2 [facility] Procedures Procedure Date / Time Performing Clinician Source Performed LACTIC ACID WHOLE BLOOD 2022-05-04 07:58:00 F[facility] ABDOMEN PELVIS W 2022-05-04 07:53:24 Fina Tejada [facility] CONTRAST [facility] URINALYSIS 2022-05-04 07:21:00 Fina Te[facility] COMP. METABOLIC PANEL 2022-05-04 06:45:00 Fina Tejada [facility] ([id number]) [facility] CBC WITH DIFF 2022-05-04 06:45:00 Fina Tejada [place] [facility] CONSENT/REFUSAL FOR 2022-05-04 05:28:53 Doctor Unassigned, [facility] DIAGNOSIS AND TREATMENT [place] [facility] URINE CULTURE 2022-05-02 20:05:00 Gabriella Patel [facility] MAGNESIUM 2022-04-22 08:55:00 Joselo Blanco [facility] BASIC METABOLIC PANEL (NA, 2022-04-22 08:55:00 Fina Ott [facility] K, CL, CO2, GLUCOSE, BUN, Medica l Branch CREATININE, CA) CBC WITH DIFF 2022-04-22 08:55:00 Fina Ott [facility] BLOOD CULTURE SCREEN 2022-04-21 19:53:00 Joselo Blanco [facility] BASIC METABOLIC PANEL (NA, 2022-04-21 09:50:00 Fina Ott [facility] K, CL, CO2, GLUCOSE, BUN, Medica l Branch CREATININE, CA) CBC WITH DIFF 2022-04-21 09:50:00 Fina Ott [facility] POCT GLUCOSE (AUTOMATED) 2022-04-20 12:43:00 Joselo Blanco [facility] POCT GLUCOSE (AUTOMATED) 2022-04-20 09:29:00 Joselo Blanco [facility] BASIC METABOLIC PANEL (NA, 2022-04-20 09:03:00 Joselo Blanco [facility] K, CL, CO2, GLUCOSE, BUN, Medica l Branch CREATININE, CA) ALPHA FETOPROTEIN 2022-04-20 09:03:00 Amilcar Lawrence [facility] CBC WITH DIFF 2022-04-20 09:03:00 Joselo Blanco [facility] POCT GLUCOSE (AUTOMATED) 2022-04-20 00:38:00 Joselo Blanco [facility] LACTIC ACID WHOLE BLOOD 2022-04-19 18:51:00 Janessa Persaud [facility] CT ABDOMEN PELVIS W 2022-04-19 17:37:00 Janessa Persaud [facility] LACTIC ACID WHOLE BLOOD 2022-04-19 15:14:00 Janessa Persaud [facility] BLOOD CULTURE SCREEN 2022-04-19 15:12:00 Janessa Persaud [facility] COMP. METABOLIC PANEL 2022-04-19 15:12:00 Janessa Persaud [facility] ([id number]) [facility] CBC WITH DIFF 2022-04-19 15:12:00 Janessa Persaud [facility] URINALYSIS 2022-04-19 15:12:00 Janessa Persaud [facility] URINE CULTURE 2022-04-19 15:12:00 Janessa Persaud [facility] BLOOD CULTURE WORKUP 2022-04-19 15:12:00 Janessa Persaud [facility] GRAM NEGATIVE BLOOD 2022-04-19 15:12:00 Janessa Persaud [facility] PATHOGENS DNA [facility] PROBE-ANAEROBIC CONSENT/REFUSAL FOR 2022-04-19 14:38:43 Doctor Unassigned, [facility] DIAGNOSIS AND TREATMENT [facility] CRITICAL CARE 2022-04-19 14:38:00 Janessa Persaud [facility] DME/SUPPLY JUSTIFICATION 2022-04-11 05:01:00 Doctor Unassdeidra, [facility] Name [facility] AUTHORIZATION FOR RELEASE 2022-03-30 05:01:00 Doctor Unasana, [facility] Name [facility] MAGNESIUM 2022-03-21 09:56:00 Perico Marsh [facility] CBC WITHOUT DIFF 2022-03-21 09:56:00 Perico Marsh [facility] BLOOD CULTURE SCREEN 2022-03-20 18:35:00 Perico Marsh [facility] BASIC METABOLIC PANEL (NA, 2022-03-20 09:51:00 BilPerico koo ad [facility] K, CL, CO2, GLUCOSE, BUN, Medica l Branch CREATININE, CA) MAGNESIUM 2022-03-20 09:51:00 Perico Marsh [facility] CBC WITHOUT DIFF 2022-03-20 09:51:00 Perico Marsh [facility] PREALBUMIN, SERUM 2022-03-20 09:51[facility] 2022-03-20 03:32:00 Perico Marsh [facility] BASIC METABOLIC PANEL (NA, 2022-03-17 09:08:00 BilPerico koo [facility] K, CL, CO2, GLUCOSE, BUN[facility]) MAGNESIUM 2022-03-17 09:08:00 BilPerico koo [facility] CBC WITHOUT DIFF 2022-03-17 09:08:00 Perico Marsh [facility] IR BIOPSY BONE DEEP WITH 2022 20:08:00 [facility] 2022 19:57:00 Lennie [facility] IR DRAINAGE BY CATHETER 2022 19:50:00 Lennie [facility] PERITONEAL OR [facility] RETROPERITONEAL BODY FLUID 2022 19:48:00 Lennie [facility] CULTURE(AEROBIC/ANAEROBIC) [facility] COMP. METABOLIC PANEL 2022 10:23:00 Dung [facility] ([id number]) Medical Yulan CBC WITH DIFF 2022 10:23:00 [facility] MAGNESIUM 2022 10:23:00 [facility] CT ABDOMEN PELVIS W 2022-03-15 13:49:58 Perico Marsh [facility] CONTRAST [facility] CBC WITH DIFF 2022-03-15 10:08:00 BilPerico koo [facility] BASIC METABOLIC PANEL (NA, 2022-03-15 10:08:00 BilPerico koo [facility] K, CL, CO2, GLUCOSE, BUN, [facility], [facility]) MAGNESIUM 2022-03-15 10:08:00 Perico Marsh [facility] HEPATIC FUNCTION PANEL 2022-03-15 10:08:00 Ricardo Marshall [facility] ([id number]) (ALB,T.PRO,BILI [facility] T,BU/BC,ALT,AST,ALK PHOS) PREALBUMIN, SERUM 2022-03-15 10:08:00 Ricardo Marshall [facility] MR PELVIS W WO CONTRAST 2022-03-15 09:30:00 Perico Marsh [facility] URINALYSIS 2022-03-14 22:50:00 BilPerico koo [facility] URINE CULTURE 2022-03-14 22:50:00 BilPerico koo [facility] BLOOD CULTURE SCREEN 2022-03-14 22:49:00 [facility] 2022-03-14 22:49:00 BilPerico koo [facility] BLOOD CULTURE SCREEN 2022-03-14 22:48:00 BilPerico koo [facility] BLOOD CULTURE WORKUP 2022-03-14 22:48:00 BilPerico koo [facility] CBC WITH DIFF 2022-03-14 19:43:00 Perico Marsh [facility] BASIC METABOLIC PANEL (NA, 2022-03-14 19:43:00 Perico Marsh [facility] K, CL, CO2, GLUCOSE, BUN, Medica l Branch CREATININE, CA) SEDIMENTATION RATE 2022-03-14 19:43:[address] [facility] C-REACTIVE PROTEIN 2022-03-14 19:43:[address] [facility] HOSPITAL ADMISSION 2022-03-14 05:01:00 Doctor Unassigned, [facility] SURGICAL PATHOLOGY EXAM 2022-03-01 17:39:00 Thee Downing [facility] INTUBATION 2022-03-01 17:05:00 Yee Neff [facility] RADICAL ORCHIECTOMY 2022-03-01 16:44:00 Thee Downing [facility] DAY SURGERY - ADC 2022-03-01 05:01:00 Doctor Unassigned, [facility] [place] [facility] COVID-19 (ID NOW RAPID 2022-02-28 15:35:00 [facility] TESTING) Medical Branch LAB ONLY COVID 2022-02-28 15:35:00 [facility] INTERPRETATION [facility] CONSENT/REFUSAL FOR 2022-02-28 15:28:50 Doctor Dagmar, [facility] DIAGNOSIS AND TREATMENT [facility] [place] ASSIGNMENT OF BENEFITS 2022-02-28 15:28:29 Doctor Unassdeidra, [facility] Name [facility] LACTATE DEHYDROGENASE 2022-02-22 18:11:00 [facility] ALPHA FETOPROTEIN 2022-02-22 18:11:00 [facility] TOTAL BETA HCG ASSAY 2022-02-22 18:11:00 [facility] COMP. METABOLIC PANEL 2022-02-22 18:11:00 [facility] ([id number]) [facility] DISCLOSURE AND CONSENT, 2022-02-22 05:01:00 Doctor Dagmar [facility] MEDICAL AND SURGICAL [facility] PROCEDURES US SCROTUM AND CONTENTS 2022-02-17 00:06:[address] [facility] URINE CULTURE 2022-02-12 21:19:00 [facility] DME/SUPPLY JUSTIFICATION 2022-02-12 05:01:00 Doctor Dagmar [facility] URINE CULTURE 2022-01-25 19:01:00 Gutierrez [facility] [place] [facility] ECG 12-LEAD 2021-04-20 08:11:57 Unknown, Hl7 [facility] ECG 12-LEAD 2021-04-20 08:11:57 Unknown, Hl7 [facility] CBC W/PLT COUNT & AUTO 2021-04-20 05:25:00 Ruel Flores [facility] BASIC METABOLIC PANEL (7) 2021-04-20 05:25:00 Halina Flores [facility] CBC W/PLT COUNT & AUTO 2021-04-20 05:25:00 Ruel Flores [facility] DIFFERENTIAL Center CBC W/PLT COUNT & AUTO 2021-04-19 05:28:00 Ruel Flores [facility] BASIC METABOLIC PANEL (7) 2021-04-19 05:28:00 Halina Flores [facility] CBC W/PLT COUNT & AUTO 2021-04-19 05:28:00 Ruel Flores [facility] STD PANEL - CT/GC RNA 2021-04-18 10:18:00 Indu Gambino [facility] ALPHA FETOPROTEIN (AFP), 2021-04-18 10:17:00 Pushpa Jacobsen [facility] TUMOR MARKER [facility] CBC W/PLT COUNT & AUTO 2021-04-18 05:15:00 Ruel Flores [facility] COMPREHENSIVE METABOLIC 2021-04-18 05:15:00 Ruel Flores [facility] PANEL Center HC LAB HIV-1 AG W/HIV-1&2 2021-04-18 05:15:00 Halina Flores [facility] AB Center RPR 2021-04-18 05:15:00 Ruel Flores [facility] HEPATITIS PANEL, ACUTE 2021-04-18 05:15:00 Ruel Flores [facility] LACTATE DEHYDROGENASE 2021-04-18 05:15:00 [facility] HCG, QUANTITATIVE, 2021-04-18 05:15:00 Reeder [facility] CBC W/PLT COUNT & AUTO 2021-04-18 05:15:00 Ruel Flores [facility] (CELLAVISION MANUAL DIFF) 2021-04-18 05:15:00 Halina Flores [facility] Plan of Care Planned Activity Planned Date Details Comments Source Future Scheduled 2022-03-[address] [facility] Test 00:00:00 (#1) [code = Medical Center INFLUENZA VACCINE (#1)] Future Scheduled 2022-03-[address] [facility] Test 00:00:00 (#1) [code = Medical Center INFLUENZA VACCINE (#1)] Future Scheduled 2021-07-[address] [facility] Test 00:00:00 (12+) [code = [facility] DEPRESSION SCREENING (12+)] Future Scheduled 2021-07-[address] [facility] Test 00:00:00 (12+) [code = [facility] DEPRESSION SCREENING (12+)] Future Scheduled [address] [facility] 00:00:00 (procedure) [code = [facility] [id number]] Future Scheduled [address] [facility] Test 00:00:00 (procedure) [code = [facility] [id number]] Future Scheduled 2004 DTAP/TDAP/TD VACCINES [facility] 00:00:00 (1 - Tdap) [code = Medical C enter DTAP/TDAP/TD VACCINES (1 - Tdap)] Future Scheduled 2004 DTAP/TDAP/TD VACCINES [facility] 00:00:00 (1 - Tdap) [code = Medical C enter DTAP/TDAP/TD VACCINES (1 - Tdap)] Future Scheduled 1985 COVID-19 VACCINE (#1) [facility] 00:00:00 [code = COVID-[address] VACCINE (#1)] Future Scheduled 1985 COVID-19 VACCINE (#1) [facility] 00:00:00 [code = COVID-[address] VACCINE (#1)] Encounters Start End Encounter Admission Attending Care Care Encounter Source Date/Time Date/Time Type Type Clinicians Facility Department ID 2022-03-14 Inpatient Wilbur MORALEZ [facility] [id number] Univers 11:55:00 TIM phipps [facility] 2022-05-24 2022-05-24 Multidisci LANI Feliz 1.2.840.114 [id number] Univers 00:00:00 00:00:00 yeimy RENE 350.1.13.10 susy [facility] 4.2.7.2.686 [place] [id number] [facility] 007 Branch 2022-05-23 2022-05-23 Case Per Hearn UNIVERS 1.2.840.114 [id number] Univers 00:00:00 00:00:00 Management Y HEALTH 350.1.13.10 [id number] [address] 2022-05-16 2022-05-16 Outpatient R DARYL [facility] [id number] Univers 10:30:00 10:30:00 YUMI quinn f [facility] 2022-05-14 2022-05-14 Shoe Singer [facility] UNIVERS 1.2.840.114 [id number] Univers 13:30:00 13:45:00 Visit Alise Muñoz Rp Y HEALTH 350.1.13.10 ity of [place] [id number] [facility] 316 Y[place] 2022-05-14 2022-05-14 Outpatient R ALISE MUÑOZ [facility] [id number] Univers 11:40:00 12:46:49 ity of [facility] 2022-05-14 2022-05-14 Office Janneth Jose Eliasximena RUIZ 1.2.840.114 [id number] Univers 11:40:00 12:46:49 Visit Rp H 350.1.13.10 it y of BUILDING 4.2.7.2.686 Tamir as [id number] [address] 2022-05-14 2022-05-14 Case Per Hearn 1.2.840.114 [id number] Univers 00:00:00 00:00:00 Management H 350.1.13.10 ity of [place]ILD[place] 4.2.7.2.686 Tamir as [id number] [address] 2022-05-04 2022-05-04 Emergency Wilfredo YA [facility] ERT [id number] Univers 00:39:00 04:59:00 JOSE JUAN ity of [facility] 2022-05-04 2022-05-04 Emergency Fina Tejada [facility] 1.2.840.1 14 [id number] Univers 00:39:00 04:59:00 Jose Juan Ya 350.1.13.10 ity [place].2.[place] [id number] [place] 601074 [place] 2022-05-02 2022-05-02 Shoe Singer Lab, Ang - Db [facility] 1.2.840.1 14 [id number] Univers 14:45:00 15:00:00 Visit Jorge Gabriella Rose [facility] 350.1.13.10 ity of [place] 4.2.7.2.686 Tamir as BRIGETTE?BLEA [id number] [facility] 353 [place] MEDICAL OFFICE [facility] 2022-05-02 2022-05-02 Outpatient [facility] [id number] Univers 14:00:00 14:47:36 [facility] 2022-05-02 2022-05-[address] [facility] 1.2.840.114 [id number] Univers 14:00:00 14:47:36 Visit Gabriella Rose [facility] 350.1.13.10 i ty of [place] 4.2.7.2.686 Tamir as BRIGETTE?BLEA [id number] [facility] [address] [facility] OFFICE [facility] 2022-04-27 2022-04-27 Outpatient R [facility] [id number] Univers 11:00:00 11:00:00 [facility] 2022-04-24 2022-04-24 Transition OSVALDO Ralph 1.2.840.114 [id number] Univers 00:00:00 00:00:00 of Care Elena FRANKLIN 350.1.13.10 i ty of [place] [id number] [facility] 403 Y[place] 2022-04-24 2022-04-24 Telephone Per Hearn 1.2.840.114 [id number] Univers 00:00:00 00:00:00 H 350.1.13.10 it y of [facility] 4.2.7.2.686 Tamir as [id number] [address] 2022-04-19 2022-04-22 Inpatient X TATE [facility] ERIN [id number] Univers 09:48:00 16:30:00 JOSELO phipps [facility] 2022-04-19 2022-04-22 Hospital Janessa Persaud [facility] 1.2.840. 114 [id number] Univers 09:48:00 16:30:00 Encounter Joselo lBanco THELMA 350.1.13.10 ity [place].2.7.[place] [id number] [facility] 081 Yul[place] 2022-04-19 2022-04-19 Telephone Alise Muñoz 1.2.840.114 [id number] Univers 00:00:00 00:00:00 Rp H 350.1.13.10 it y of [facility] 4.2.7.2.686 Tamir as [id number] [address] 2022-04-16 2022-04-16 Outpatient R [facility] [id number] Univers 13:00:00 14:00:58 [facility] 2022-04-16 2022-04-16 Office [facility] 1.2.840.114 [id number] Univers 13:00:00 14:00:58 Visit Adrian RENEE 350.1.13.10 ity [facility] 4.2.7.2.[place] [facility] [id number] Vt dical NAL 201 [address] [facility] 2022-04-11 2022-04-11 Orders Doctor LANI 1.2.840.114 [id number] Univers 00:00:00 00:00:00 Only Unassigned, ANJU 350.1.13.[address] [place] [facility] 4.2.7.2.686 Tamir as [id number] [facility] 009 Yulan 2022-04-05 2022-04-05 Outpatient [facility] [id number] Univers 13:45:00 14:11:53 [facility]E [facility] 2022-04-05 2022-04-05 Office [facility] 1.2.840.114 [id number] Univers 13:45:00 14:11:53 Visit Thee RENEE 350.1.13.10 i ty of [place].2.[place] [id number] Vt dichayes RUIZ 204 [facility] 2022-04-04 2022-04-04 Shoe Singer Lab, Ang - Db [facility] 1.2.840.1 14 [id number] Univers 11:30:00 11:45:00 Visit Gabriella Patel HEALTH 350.1.13.10 ity [facility] 4.2.7.2.686 Tamir as BRIGETTE?BLEA [phone] Vt martha NAQVI [address] [facility] OFFICE [facility] 2022-04-04 2022-04-04 Outpatient R JORGE [facility] [id number] Univers 11:00:00 11:18:52 GABRIELLA ity of [facility] 2022-04-04 2022-04-04 Office Jorge [facility] 1.2.840.114 [id number] Univers 11:00:00 11:18:52 Visit Gabriella Rose [facility] 350.1.13.10 i ty of [place] 4.2.7.2.686 Tamir as BRIGETTE?BLEA [id number] Vt martha MELENDEZ 0[address] [facility] OFFICE [facility] 2022-03-30 2022-03-30 Outpatient R ALISE MUÑOZ [facility] [id number] Univers 12:00:00 13:49:33 ity of [facility] 2022-03-30 2022-03-30 Office Alise Muñoz 1.2.840.114 [id number] Univers 12:00:00 13:49:33 Visit Suri Sandhu 350.1.13.10 it y of [facility] 4.2.7.2.686 Tamir as [id number] [facility] 080 Yulan 2022-03-30 2022-03-30 Orders Doctor GARIBAY 1.2.840.114 [id number] Univers 00:00:00 00:00:00 Only Unassigned, ANJU 350.1.13.[address] [place] [facility] 4.2.7.2.686 Tamir as [id number] [facility] 009 Yulan 2022-03-28 2022-03-28 Telephone [facility] 1.2.840.114 [id number] Univers 00:00:00 00:00:00 Thee RENEE 350.1.13.10 i ty of [place] 4.2.7.2.686 Purnima costello PROFESSIO [id number] Me dical NAL 204 [facility] 2022-03-22 2022-03-22 Transition Ralph, 1.2.840.0 [id number] Univers 00:00:00 00:00:00 of Care Elena Eric 00036.1.1 ity of 3.104.2.7 [place] .3.550759 Medica l .8 Yulan 2022-03-14 2022-03-21 Inpatient [facility] [id number] Univers 11:55:00 15:30:00 TIM phipps [facility] 2022-03-14 2022-03-21 Hospital Naomy, 1.2.840.8 [id number] Univers 11:55:00 15:30:00 Encounter Tim 65816.1.1 it y of 3.104.2.7 [place] .3.705425 Medica l .8 Yulan 2022-03-14 2022-03-14 Travel 1.2.840.1 1.2.142.986 [id number] Univers 00:00:00 00:00:00 42857.1.1 350.1.13.10 ity of 3.104.2.7 4.2.7.3.698 [place] .3.081433 084.8 Medica l .8 [place] 2022-03-09 2022-03-09 Telephone Piper, 1.2.840.1 [id number] Univers 00:00:00 00:00:00 Thee 21871.1.1 ity of 3.104.2.7 [place] .3.653650 Medica l .8 Yul[place] 2022-03-05 2022-03-05 Outpatient R JOSEPH [facility] [id number] Univers 13:00:00 13:00:00 ADRIAN phipps [facility] 2022-03-01 2022-03-01 Outpatient R [facility] [id number] Univers 08:43:00 14:19:00 THEE [facility] [place] [facility] 2022-03-01 2022-03-01 [facility] 1.2.740.181 [id number] Univers 08:43:00 14:19:00 Encounter Thee [place] 350.1.13.10 ity of [place] 4.2.7.2.686 [place] SURGICAL [id number] [facility] 071 Branch 2022-03-01 2022-03-01 [facility], 1.2.840.3 [id number] 38738 Univers 08:43:00 14:19:00 Encounter Thee 28608.1.1 it y of 3.104.2.7 [place] .3.795810 Medica l .8 Branch 2022-03-01 2022-03-01 Anesthesia Lani Callahan 1.2.840.5 [id number] Univers 12:00:00 13:03:00 Event Yee Neff T 51510.1.1 ity of 3.104.2.7 [place] .3.125204 Medica l .8 Branch 2022-03-01 2022-03-01 Surgery [facility] 1.2.840.114 [id number] Univers 11:15:00 12:55:00 Thee [place] 350.1.13.10 i ty of [place] 4.2.7.2.686 [place] SURGICAL [id number] [facility] 020 Branch 2022-03-01 2022-03-01 Surgery [facility] 1.2.840.5 [id number] 3358 Univers 11:15:00 12:55:00 Thee 66379.1.1 ity of 3.104.2.7 [place] .3.194591 Medica l .8 Branch 2022-03-01 2022-03-01 Telephone [facility] 1.2.840.114 [id number] Univers 00:00:00 00:00:00 Thee HEALTH 350.1.13.10 it y of CANCER 4.2.7.2.686 [facility] [place] - [id number] Med ical MDA 204 Branch 2022-03-01 2022-03-01 Telephone [place] 1.2.840.3 [id number] Univers 00:00:00 00:00:00 Thee 37946.1.1 ity of 3.104.2.7 [place] .3.369762 Medica l .8 Branch 2022-02-28 2022-02-28 Laboratory Only, Adc Test [facility] 1.2.840. 114 [id number] Univers 10:15:00 10:30:00 Only Maurizio Carpenter 350.1.13.10 ity of [place] 4.2.7.2.686 [facility] [id number] [facility] 353 Yulan 2022-02-28 2022-02-28 Laboratory Chrisscot Maurizio 1.2.840.3 [id number] Univers 10:15:00 10:30:00 Only Only, Adc Test 42233.1.1 ity of 3.104.2.7 [place] .3.990891 Medica l .8 Branch 2022-02-28 2022-02-28 Outpatient R KALLIE, [facility] [id number] Univers 10:15:00 10:15:00 MAURIZIO itsusy of [facility] 2022-02-23 2022-02-23 Travel 1.2.840.1 1.2.723.555 [id number] Univers 00:00:00 00:00:00 89200.1.1 350.1.13.10 ity of 3.104.2.7 4.2.7.3.698 [place] .3.373760 084.8 Medica l .8 Branch 2022-02-22 2022-02-22 Shoe Singer 2, Adc Lab [facility] 1.2.840.114 [id number] Univers 13:15:00 13:30:00 Visit Thee Downing 350.1.13.10 ity of [place] 4.2.7.2.686 [facility] [id number] Vt dical [facility] 353 [facility] 2022-02-22 2022-02-22 Shoe Singer Thee [place] 1.2.840.2 [id number] Univers 13:15:00 13:30:00 Visit 2, [facility] Lab 40648.1.1 i ty of 3.104.2.7 [place] .3.534163 Medica l .8 Yulan 2022-02-22 2022-02-22 Outpatient [facility] [id number] Univers 13:15:00 13:15:00 THEE ity of [facility] 2022-02-22 2022-02-22 Office [facility] 1.2.840.114 [id number] Univers 12:30:00 12:51:57 Visit [facility] 350.1.13.10 i ty of [place] 4.2.7.2.686 [place] PROFESSIO [id number] Vt dical [facility] 204 [facility] 2022-02-22 2022-02-22 [facility] [id number] Univers 12:30:00 12:51:57 THEE ity of [facility] 2022-02-22 2022-02-22 Office [place], 1.2.840.0 [id number] Univers 12:30:00 12:51:57 Visit [facility] 29227.1.1 ity of 3.104.2.7 [place] .3.610018 Medica l .8 Yulan 2022-02-22 2022-02-22 Travel 1.2.840.1 1.2.739.080 [id number] Univers 00:00:00 00:00:00 91001.1.1 350.1.13.10 ity of 3.104.2.7 4.2.7.3.698 [place] .3.282579 084.8 Medica l .8 Yul[place] 2022-02-20 2022-02-20 [facility]phone [facility] 1.2.840.114 [id number] Univers 00:00:00 00:00:00 [facility] 350.1.13.10 it y of [place].2.7.2.686 [place] CENTER - [id number] [facility] 204 Branch 2022-02-20 2022-02-20 Telephone [place], 1.2.840.7 [id number] Univers 00:00:00 00:00:00 Thee 71086.1.1 ity of 3.104.2.7 [place] .3.744347 Medica l .8 Yulan 2022-02-16 2022-02-16 Outpatient R [facility] [id number] Univers 18:01:45 23:59:00 EWELINA ity of [facility] 2022-02-16 2022-02-16 [facility] 1.2.840.114 [id number] Univers 18:01:45 23:59:00 Encounter Ewelina RENEE 350.1.13.10 ity of [place] 4.2.7.2.[place] [id number] [facility] 806 Yulan 2022-02-16 2022-02-16 [facility], 1.2.840.6 [id number] Univers 18:01:45 23:59:00 Encounter Ewelina 54551.1.1 ity of 3.104.2.7 [place] .3.148106 Medica l .8 Yul[place] 2022-02-12 2022-02-12 Outpatient R [facility] [id number] Univers 14:30:00 15:25:46 THEE ity of [facility] 2022-02-12 2022-02-12 Office [facility] 1.2.840.114 [id number] Univers 14:30:00 15:25:46 Visit Thee RENEE 350.1.13.10 i ty of [place] 4.2.7.2.686 [facility] [id number] Vt dical NAL 204 [address] [facility] 2022-02-12 2022-02-12 Office Piperximena, 1.2.840.2 [id number] Univers 14:30:00 15:25:46 Visit Thee 52893.1.1 ity of 3.104.2.7 [place] .3.403444 Medica l .8 Yulan 2022-02-122022-02-12 [facility] Kley, 1.2.840.2 [id number] 7677 Univers 10:00:00 10:00:00 Encounter Ewelina 56520.1.1 ity of 3.104.2.7 [place] .3.331089 Medica l .8 Yulan 2022-02-12 2022-02-12 Travel 1.2.840.1 1.2.745.006 [id number] Univers 00:00:00 00:00:00 15846.1.1 350.1.13.10 ity of 3.104.2.7 4.2.7.3.698 [place] .3.736686 084.8 Medica l .8 Yulan 2022-02-06 2022-02-06 Outpatient Je [facility] 1041 [id number] Univers 09:30:00 09:30:00 YUMI celissusy o f [facility] 2022-01-25 2022-01-25 Outpatient R [facility] [id number] Univers 13:30:00 14:06:47 [facility] 2022-01-25 2022-01-25 Office [facility] 1.2.840.114 [id number] Univers 13:30:00 14:06:47 Visit [facility] 350.1.13.10 ity [facility] 4.2.7.2.686 Tamir as BRIGETTE?BLEA [id number] [address] MEDICAL OFFICE [facility] 2022-01-25 2022-01-25 Outpatient R [facility] [id number] Univers 13:30:00 14:06:47 EWELINA ity [facility] 2022-01-25 2022-01-25 Office [facility] 1.2.840.114 [id number] Univers 13:30:00 14:06:47 Visit [facility] 350.1.13.10 ity [facility] 4.2.7.2.686 Tamir as BRIGETTE?BLEA [id number] [address] OFFICE [facility] 2022-01-25 2022-01-25 Outpatient [facility] [id number] Univers 13:30:00 14:06:47 EWELINA ity of [facility] 2022-01-25 2022-01-25 Office Kley, 1.2.840.0 [id number] Univers 13:30:00 14:06:47 Visit Ewelina 38352.1.1 it y of 3.104.2.7 [place] .3.803015 Medica l .8 Yulan 2022-01-25 2022-01-25 Travel 1.2.840.1 1.2.834.816 [id number] Univers 00:00:00 00:00:00 26143.1.1 350.1.13.10 ity of 3.104.2.7 4.2.7.3.698 [place] .3.187750 084.8 Medica l .[address] [place] [address] 2022-01-24 2022-01-24 Telephone [facility] 1.2.463.655 [id number] Univers 00:00:00 00:00:00 Gabriella A HEALTH 350.1.13.10 i ty of [place] 4.2.7.2.686 Tamir as BRIGETTE?BLEA [id number] [address] MEDICAL OFFICE [facility] 2022-01-24 2022-01-24 Telephone Jorge, 1.2.840.0 [id number] Univers 00:00:00 00:00:00 Gabriella A 85269.1.1 ity of 3.104.2.7 [place] .3.895857 [facility] [address] 2022-01-22 2022-01-22 Outpatient R CANDELARIA, [facility] [id number] Univers 09:30:00 09:30:00 HASMUKH ity of [facility] 2021-12-25 2021-12-25 Telephone [facility] 1.2.174.220 [id number] Univers 00:00:00 00:00:00 Gabriella A HEALTH 350.1.13.10 i ty of [place] 4.2.7.2.686 Tamir as BRIGETTE?BLEA [phone] [address] [facility] 2021-12-25 2021-12-25 Telephone Jorge, [id number] Univers 00:00:00 00:00:00 Gabriella Rose 63383.1.1 ity of 3.104.2.7 [place] .3.780974 Medica l .8 Yulan 2021-12-01 2021-12-01 Orders Doctor LANI 1.2.840.114 [id number] Univers 00:00:00 00:00:00 Only Unassigned, ANJU 350.1.13.[address] [place] [facility] 4.2.7.2.686 Tamir as [phone] [facility] 009 Yulan 2021-11-20 2021-11-20 Telephone Jorge, [facility] [id number] Univers 00:00:00 00:00:00 Gabriella Rose HEALTH 350.1.13.10 i ty of [place] 4.2.7.2.686 Tamir as BRIGETTE?BLEA [phone] Vt martha [facility] 044 Yulan [facility] 2021-11-14 2021-11-14 Patient Gary, [facility] 1.2.840.114 [id number] Univers 00:00:00 00:00:00 Outreach Katt RENEE 350.1.13.10 [place] [phone] Vt dical NAL 201 [facility] 2021-11-14 2021-11-14 Patient Gary [facility] 1.2.840.114 [id number] Univers 00:00:00 00:00:00 Outreach Kattrose RENEE 350.1.13.10 [place] [phone] Vt dical NAL 201 [facility] 2021-11-13 2021-11-13 Shoe Singer 2, Adc Lab [facility] 1.2.840.114 [id number] Univers 15:15:00 15:30:00 Visit Adrian Ruiz 350.1.13.1 0 ity of [place] [phone] Vt dical NAL 353 [facility] 2021-11-13 2021-11-13 [facility] [id number] Univers 13:30:00 15:02:36 ADRIAN susy [facility] 2021-11-13 2021-11-13 Office [facility] 1.2.840.114 [id number] Univers 13:30:00 15:02:36 Visit Adrian RENEE 350.1.13.10 [place] [phone] Vt dical NAL 201 [facility] 2021-11-13 2021-11-13 [facility] [id number] Univers 13:30:00 15:02:36 [facility] 2021-11-02 2021-11-02 Office [facility] 1.2.432.856 [id number] Univers 15:00:00 15:30:00 Visit Yun RENEE 350.1.13.10 i ty [place] [phone] Vt dical NAL 188 [facility] 2021-11-02 2021-11-02 Outpatient R [facility] [facility] [id number] Univers 15:00:00 15:00:00 [facility] 2021-11-02 2021-11-02 Outpatient R BENITO [facility] [id number] Univers 15:00:00 15:00:00 [facility] 2021-11-02 2021-11-02 Outpatient R BENITO [facility] [id number] Univers 10:30:00 10:30:00 [facility] 2021-10-26 2021-10-26 Outpatient R JORGE [facility] [id number] Univers 12:30:00 12:30:00 GBARIELLA phipps [facility] 2021-10-18 2021-10-18 Telephone [facility] 1.2.187.318 [id number] Univers 00:00:00 00:00:00 [facility] 350.1.13.10 i ty luis RENEE 4.2.7.2.686 Tamir as BRIGETTE?BLEA [phone] Vt martha NAQVI [address] [place] [address] MEDICAL OFFICE BUILDING 2021-10-10 2021-10-10 Out[facility] [id number] Univers 15:30:00 15:30:00 YUN phipps [facility] 2021-10-04 2021-10-04 Orders Doctor LANI 1.2.840.114 [id number] Univers 00:00:00 00:00:00 Only Unassigned, ANJU 350.1.13.10 ity [facility] 4.2.7.2.686 Tamir as [phone] [address] 2021-10-02 2021-10-02 Telephone [facility] 1.2.840.114 [id number] Univers 00:00:00 00:00:00 Adrian [facility]EE [facility].13.10 [facility] [place] [id number] Vt dichayes NAL 201 [facility] 2021-09-18 2021-09-18 Outpatient R [facility] [id number] Univers 15:30:00 16:39:06 ADRIAN susy [facility] 2021-09-18 2021-09-18 Office [facility] 1.2.840.114 [id number] Univers 15:30:00 16:39:06 Visit Adrian RENEE 350.1.13.10 [facility] [place] [phone] Vt dichayes [facility] 201 [facility] 2021-09-14 2021-09-14 [facility] [id number] Univers 11:00:00 11:00:00 YUN susy [facility] 2021-09-04 2021-09-04 Outpatient R [facility] [id number] Univers 13:30:00 13:30:00 ADRIAN susy [facility] 2021-08-22 2021-08-22 Telephone [facility] 1.2.840.114 [id number] Univers 00:00:00 00:00:00 Yun RENEE 350.1.13.10 i ty of [place] [phone] Vt martha NAL 188 [facility] 2021-08-21 2021-08-21 Orders Doctor LANI 1.2.840.114 [id number] Univers 00:00:00 00:00:00 Only Unassigned, ANJU 350.1.13.[address] [place] [facility] 4.2.7.2.686 Tamir as [phone] [address] 2021-08-18 2021-08-18 Telephone [facility] 1.2.334.496 [id number] Univers 00:00:00 00:00:00 [facility] 350.1.13.10 i ty of [place] 4.2.7.2.686 Tamir as BRIGETTE?BLEA [id number] Vt martha NAQVI 044 Yul[address] MEDICAL OFFICE [facility] 2021-08-17 2021-08-17 Outpatient Je [facility] [id number] Univers 10:30:00 11:15:44 YUN lalitasusy [facility] 2021-08-17 2021-08-17 Office [facility] 1.2.326.018 [id number] Univers 10:30:00 11:15:44 Visit Yun THELMA 350.1.13.10 i ty of [place] 4.[place].7.2.[place] [id number] Vt martha RUIZ 188 [facility] 2021-08-17 2021-08-17 Outpatient Je [facility] [id number] Univers 10:30:00 11:15:44 YUN phipps [facility] 2021-08-15 2021-08-15 Outpatient Je OLIVER [facility] [id number] Univers 14:45:00 14:45:00 YUN phipps [facility] 2021-08-15 2021-08-15 Outpatient R BENITO [facility] [id number] Univers 14:45:00 14:45:00 YUN phipps [facility] 2021-08-15 2021-08-15 Outpatient Je OLIVER [facility] [id number] Univers 14:45:00 14:45:00 YUN susy [facility] 2021-08-10 2021-08-10 Hospital Yun Oliver [facility] 1.2.840. 114 [id number] Univers 10:00:00 23:59:00 Encounter Mirna Padmaja A [facility] 350.1.13.10 ity [facility] 4.2.7.2.686 [facility] [place] [id number] [facility] [address] ([facility]) 2021-08-10 2021-08-10 Outpatient [facility] RAD [id number] Univers 08:00:00 23:59:00 YUN susy [facility] 2021-08-10 2021-08-10 Outpatient [facility] [id number] Univers 08:00:00 23:59:[address] [facility] 2021-08-09 2021-08-09 Emergency X [facility] ERT [id number] Univers 13:33:00 18:09:00 AB phipps [facility] 2021-08-09 2021-08-09 Emergency [facility] 1.2.137.257 [id number] Univers 13:33:00 18:09:00 Ab RENEE 350.1.13.10 i ty of [place] 4.2.7.2.686 [facility] [id number] [facility] 084 Yulan 2021-08-09 2021-08-09 Patient LANI Oliver 1.2.738.279 [id number] Univers 00:00:00 00:00:00 Outreach Yun RENE 350.1.13.[address] [facility] 4.2.7.2.686 Tamir [id number] [facility] [address] 2021-08-08 2021-08-08 Telephone [facility] 1.2.840.114 [id number] Univers 00:00:00 00:00:00 Yun RENEE 350.1.13.10 i ty of [place] 4.2.7.2.686 [facility] [id number] [facility] [address] BUILDING 2021-08-07 2021-08-07 Outpatient R [facility] [id number] Univers 13:00:00 13:00:00 ADRIAN susy [facility] 2021-08-07 2021-08-07 Outpatient R [facility] [id number] Univers 13:00:00 13:00:00 ADRIAN susy [facility] 2021-07-25 2021-07-25 Telephone [facility] 1.2.840.114 [id number] Univers 00:00:00 00:00:00 Yun THELMA 350.1.13.10 i ty of [place] 4.2.7.2.[place] [id number] [address] 2021-07-21 2021-07-21 Office [facility] 1.2.840.114 [id number] Univers 15:30:00 16:28:05 Visit Gabriella [facility] 350.1.13.10 i ty of [place] 4.2.7.2.686 Tamir as BRIGETTE?BLEA [phone] [address] OFFICE [facility] 2021-07-21 2021-07-21 Outpatient [facility] [id number] Univers 15:30:00 16:28:05 [facility]LL[facility] 2021-07-21 2021-07-21 Outpatient [facility] [id number] Univers 15:30:00 15:30:00 [facility]LLA [facility] 2021-07-21 2021-07-21 Telephone [facility] 1.2.840.114 [id number] Univers 00:00:00 00:00:00 Yun FLEMINGJANIE 350.1.13.10 i ty of [place] 4.2.7.2.[place] [phone] [address] 2021-07-20 2021-07-[address] [facility] 1.2.840.114 [id number] Univers 13:30:00 14:00:00 Visit Gabriella [facility] 350.1.13.10 i ty [facility] 4.2.7.2.686 Tamir as BRIGETTE?BLEA [phone] Vt martha NAQVI 044 Yul[address] MEDICAL OFFICE BUILDING 2021-07-20 2021-07-20 Outpatient R JORGE, [facility] [id number] Univers 13:30:00 13:30:00 GABRIELLA phipps [facility] 2021-07-20 2021-07-20 Outpatient R [facility] [id number] Univers 13:30:00 13:30:00 GABRIELLA phipps [facility] 2021-07-18 2021-07-18 Office [facility] 1.2.831.107 [id number] Univers 16:30:00 16:54:16 Visit Yun THELMA 350.1.13.10 i ty of [place].2.7.2.[place] [id number] Vt martha [facility] 188 [facility] 2021-07-18 2021-07-18 Outpatient [facility] [id number] Univers 16:30:00 16:54:16 YUN phipps [facility] 2021-07-18 2021-07-18 Outpatient [facility] [id number] Univers 16:30:00 16:54:16 [facility] 2021-07-18 2021-07-18 Outpatient [facility] [id number] Univers 16:30:00 16:30:00 [facility] 2021-07-18 2021-07-18 Orders Doctor GARIBAY 1.2.840.114 [id number] Univers 00:00:00 00:00:00 Only Unassigned, ANJU 350.1.13.10 ity of [place] [facility] 4.2.7.2.686 Tamir as [id number] [facility] [address] 2021-07-07 2021-07-07 Transition OSVALDO Trimble 1.2.840.114 [id number] Univers 00:00:00 00:00:00 of Care Sarita FRANKLIN 350.1.13.10 i ty [place] [id number] [facility] [address] 2021-07-03 2021-07-06 Inpatient X TATE, [facility] ERIN [id number] Univers 00:36:00 16:08:00 JOSELO phipps [facility] 2021-07-03 2021-07-06 [facility] Carlita Thomas [facility] 1.2.840.1 14 [id number] Univers 00:36:00 16:08:00 Encounter Joselo Blanco THELMA 350.1.13.10 ity of [place].2.7.2.[place] [id number] [address] 2021-07-03 2021-07-06 Inpatient X TATE, [facility] ERIN [id number] Univers 00:36:00 16:08:00 JOSELO phipps [facility] 2021-06-07 2021-06-07 Outpatient [facility] [id number] Univers 16:00:00 16:00:00 ALICIA phipps [facility] 2021-05-25 2021-05-25 Telephone [facility] 1.2.490.961 [id number] Univers 00:00:00 00:00:00 Alicia RENEE 350.1.13.10 ity of [place]2.7.2.686 [place] [facility] [id number] [address] 2021-05-22 2021-05-22 Outpatient [facility] [id number] Univers 14:30:00 14:30:00 ALICIA phipps [facility] 2021-04-26 2021-04-26 Office [facility] 1.2.840.114 [id number] Univers 11:31:12 12:29:11 Visit Alicia Renee 350.1.13.10 ity of [place].2.[place] Profess[place] [id number] Vt dic[address] 2021-04-26 2021-04-26 Outpatient R [facility] [id number] Univers 11:30:00 11:30:00 ALICIAÓSCAR phipps [facility] 2021-04-26 2021-04-26 Orders Doctor GARIBAY 1.2.840.114 [id number] Univers 00:00:00 00:00:00 Only Unassigned, ANJU 350.1.13.[address] [place] [facility] 4.2.7.2.686 Tamir as [id number] [address] 2021-04-20 2021-04-20 Outpatient [facility] [id number] [facility] 00:00:00 23:59:00 [facility] 2021-04-17 2021-04-20 Inpatient ER MARIEL [facility] [id number] SLE 12:53:00 17:18:00 MEGAN 2021-04-17 2021-04-20 Hospital ER García Soriano [facility] [id number] [facility] 12:53:00 17:18:00 Encounter Indu Gambino keyona [facility] 2021-04-20 2021-04-20 Orders [facility] [id number] 00:00:00 00:00:00 Only [facility] 2021-04-17 2021-04-17 Travel [facility] [id number] [facility] 00:[facility]:00 00:00:00 [facility] 2021-04-03 2021-04-03 Outpatient R GRAMM, [facility] [id number] Univers 16:00:00 16:00:00 ALICIA lalitasusy [facility] 2021-03-22 2021-03-22 Outpatient R GRAMM, [facility] [id number] Univers 15:30:00 15:30:00 ALICIA lalitasusy [facility] 2020-09-16 2020-09-16 Telephone [facility] 1.2.417.958 [id number] Univers 00:00:00 00:00:00 Alicia Renee 350.1.13.10 ity of [place] 4.2.7.2.686 Purnima costello Professio [id number] [address] 2020-09-16 2020-09-16 Telephone [facility] 1.2.019.158 [id number] Univers 00:00:00 00:00:00 Alicia Renee 350.1.13.10 ity of [place] [id number] Vt dical nal 204 [facility] 2020-09-12 2020-09-12 Lesley [facility] 1.2.661.512 [id number] Univers 00:00:00 00:00:00 Alicia Rose Thelma 350.1.13.10 [place]y of [place]2.[place] [phone] Vt dical nal 204 [facility] 2020-09-08 2020-09-08 Shoe Singer Jeanette, Adc Lab Main [facility] 1.2.8 40.114 [id number] Univers 13:20:27 13:35:27 Visit MirnaAlicia 350.1.13.10 ity of [place].2.[place] [phone] Vt dical nal 353 [facility] 2020-09-08 2020-09-08 Outpatient [facility] [id number] Univers 13:15:00 13:15:00 ALICIA ity of [facility] 2020-09-08 2020-09-08 Case [facility] 1.2.840.114 [id number] Univers 00:00:00 00:00:00 Management Alicia Rose Thelma 350.1.13.10 [place] of [place].2.[place] [id number] Vt dical nal [address] [facility] 2020-07-26 2020-07-26 Outpatient Je [facility] [id number] Univers 13:00:00 13:00:00 BILAL ity of [facility] 2020-07-14 2020-07-14 [facility] 1.2.840.114 [id number] Univers 14:29:58 15:43:[address] [facility] 350.1.13.10 it y of [place] 4.2.7.2.686 [place] [phone] [facility] & [address] [facility] 2020-07-14 2020-07-14 Outpatient Je [facility] [id number] Univers 15:00:00 15:00:00 CYNDINC ity [facility] 2020-07-14 2020-07-14 Orders Doctor LANI 1.2.840.114 [id number] Univers 00:00:00 00:00:00 Only Unassigned, ANJU 350.1.13.10 ity of [place] [facility] 4.2.7.2.686 Tamir as [id number] [address] 2019-10-07 2019-10-07 Outpatient R WIL [facility] [id number] Univers 13:00:00 13:00:00 BILAL ity [facility] 2019-10-02 2019-10-02 Telephone [facility] 1.2.841.678 [id number] Univers 00:00:00 00:00:00 Alicia Renee 350.1.13.10 it[place] [id number] [address] 2019-08-06 2019-08-06 Orders Doctor LANI 1.2.840.114 [id number] Univers 00:00:00 00:00:00 Only Unassigned, ANJU 350.1.13.10 ity of [place] [facility] 4.2.7.2.686 Tamir as [id number] [address] 2019-08-05 2019-08-05 Office [facility] 1.2.840.114 [id number] Univers 10:18:25 10:52:03 Visit Alicia Renee 350.1.13.10 ity of [place]2.[place] [id number] [address] 2019-03-05 2019-03-05 Telephone [facility] 1.2.073.023 [id number] Univers 00:00:00 00:00:00 Alicia Renee 350.1.13.10 ity of [place]2.[place] [id number] [address] 2019-03-03 2019-03-03 Shoe Singer 1, Adc Lab [facility] 1.2.840.114 [id number] Univers 12:49:09 13:04:09 Visit Alicia Marie Thelma 350.1.13.10 ity of [place]2.[place] [id number] [facility] [address] 2019-03-03 2019-03-03 Orders Doctor LANI 1.2.840.114 [id number] Univers 00:00:00 00:00:00 Only Unassigned, ANJU 350.1.13.10 ity of [place] [facility] 4.2.7.2.686 Tamir as [id number] [facility] 00[address] 2019-02-11 2019-02-11 Telephone [facility] 1.2.198.118 [id number] Univers 00:00:00 00:00:00 Alicia Rose Thelma 350.1.13.10 [place] [phone] [facility] [address] [facility] 2019-02-06 2019-02-06 Office [facility] 1.2.840.114 [id number] Univers 09:35:16 10:21:45 Visit Alicia Rose Thelma 350.1.13.10 [place]y of [place]2.[place] [id number] [facility] [address] [facility] 2019-02-06 2019-02-06 Orders Doctor LANI 1.2.840.114 [id number] Univers 00:00:00 00:00:00 Only Unassigned, ANJU 350.1.13.10 ity of [place] [facility] 4.2.7.2.686 Tamir as [phone] [address] Results Test Description Test Time Test Comments Results Result Comments Source BASIC METABOLIC PANEL (NA, K, CL, CO2, GLUCOSE, BUN, 2022-04 11:08:33 CREATININE, CA) Test Item Value Reference Range Interpretation Comme nts NA (test code = 4277356468) 142 mmol/L 135-145 K (test code = 7173357860) 3.5 mmol/L 3.5-5 CL (test code = 8167482546) 106 mmol/L 98-108 CO2 TOTAL (test code = 4322228432) 27 mmol/L 23-31 AGAP (test code = 4272435629) 2-16 BUN (test code = 4377555574) 7 mg/dL 7-23 GLUCOSE (test code = 7688296308) 120 mg/dL 70-110 H CREATININE (test code = 0.52 mg/dL 0.6-1.25 L 3802454737) CALCIUM (test code = 0585621648) 8.6 mg/dL 8.6-10.6 eGFR (test code = 6637332751) mL/min/1.73m2 SUMEET (test code = SUMEET) Association of Glomerular Filtration Rate (GFR) and Staging of Kidney Disease* + +-------- + ------+| GFR (mL/min/1.73 m2) ?| With Kidney Damage ?| ?Without Kidney Damage+ +-- + +| ?>90 ?| ?Stage one ?| ? Normal ?+ +------- + -------+| ?60-89 ?| ?Stage two ?| ? Decreased GFR ? + +-------- + ------+| ?30-59 ?| ?Stage three ?| ? Stage three ? + +-------- + ------+| ?15-29 ?| ?Stage four ? | ? Stage four ?+ +------- + -------+| ?<15 (or dialysis) ? ?| ?Stage five ? | ? Stage five ?+ +------- + -------+ *Each stage assumes the associated GFR level has been in effect for at least three months. ?Stages 1 to 5, with or without kidney disease, indicate chronic kidney disease. Notes: Determination of stages one and two (with eGFR >59mL/min/1.73 m2) requires estimation of kidney damage for at least three months as defined by structural or functional abnormalities of the kidney, manifested by either:Pathological abnormalities or Markers of kidney damage (including abnormalities in the composition of the blood or urine or abnormalities in imaging tests). Lab Interpretation (test code = Abnormal 79272-1) [facility] WITH [id number] 10:21:47 Test Item Value Reference Range Interpretation Comments WBC (test code = See_Comment H [Automated 6690-2) message] The sy stem which generated this result transmitted reference range : 4.20 - 10.70 10*3/?L. The reference range was not used to interpret this result as normal/abnormal . RBC (test code = See_Comment L [Automated 789-8) message] The sy stem which generated this result transmitted reference range : 4.26 - 5.52 10*6/?L. The reference range was not used to interpret this result as normal/abnormal . HGB (test code = 11.8 g/dL 12.2-16.4 L 718-7) HCT (test code = 36.7 % 38.4-49.3 L 4544-3) MCV (test code = 87.6 fL 81.7-95.6 787-2) MCH (test code = 28.2 pg 26.1-32.7 785-6) MCHC (test code = 32.2 g/dL 31.2-35 786-4) RDW-SD (test code = 47.8 fL 38.5-51.6 06821-9) RDW-CV (test code = 14.9 % 12.1-15.4 788-0) PLT (test code = See_Comment H [Automated 777-3) message] The sy stem which generated this result transmitted reference range : 150 - 328 10*3/ ?L. The reference r khadijah was not used to interpret this result as normal/abnormal . MPV (test code = 8.7 fL 9.8-13 L 97069-7) NRBC/100 WBC (test See_Comment [Automat ed code = 5429234985) message] The system which generated this result transmitted reference range : 0.0 - 10.0 /100 WBCs. The refer ence range was not u sed to interpret th is result as normal/abnormal . NRBC x10^3 (test code See_Comment [Auto mated = 1632362612) message] The s ystem which generated this result transmitted reference range : 10*3/?L. The reference range was not used to interpret this result as normal/abnormal . GRAN MAT (NEUT) % 68.6 % (test code = 770-8) IMM GRAN % (test code 0.50 % = 2015246202) LYMPH % (test code = 17.6 % 736-9) MONO % (test code = 11.3 % 5905-5) EOS % (test code = 1.8 % 713-8) BASO % (test code = 0.2 % 706-2) GRAN MAT x10^3(ANC) 8.05 10*3/uL 1.99-6.95 H (test code = 7885447634) IMM GRAN x10^3 (test 0.06 10*3/uL 0-0.06 code = 0030836696) LYMPH x10^3 (test code 2.06 10*3/uL 1.09-3.23 = 731-0) MONO x10^3 (test code 1.32 10*3/uL 0.36-1.02 H = 742-7) EOS x10^3 (test code = 0.21 10*3/uL 0.06-0.53 711-2) BASO x10^3 (test code 0.01-0.09 = 704-7) Lab Interpretation Abnormal (test code = 02914-3) [facility] GLUCOSE (AUTOMATED)2022-04-20 12:58:10 Test Item Value Reference Range Interpretation Comments POCT GLU (test code = 2965857694) 111 mg/dL 70-110 H Lab Interpretation (test code = Abnormal 79303-1) [facility] GLUCOSE (AUTOMATED)2022-04-20 09:45:13 Test Item Value Reference Range Interpretation Comments POCT GLU (test code = 7070673274) 91 mg/dL 70-110 Lab Interpretation (test code = Normal 89229-6) [facility] GLUCOSE (AUTOMATED)2022-04-20 01:57:06 Test Item Value Reference Range Interpretation Comments POCT GLU (test code = 0264231925) 139 mg/dL 70-110 H Lab Interpretation (test code = Abnormal 54341-3) [facility] [id number] 18:58:04 Test Item Value Reference Range Interpretation Comments LACTIC ACID (test code = 1.19 mmol/L 0.5-2.2 5099696296) Lab Interpretation (test code = Normal 55414-3) [facility] [id number] 15:21:49 Test Item Value Reference Range Interpretation Comments LACTIC ACID (test code = 2.43 mmol/L 0.5-2.2 H 7516365437) Lab Interpretation (test code = Abnormal 06580-5) [facility] [id number] 19:13:33 Test Item Value Reference Range Interpretation Comments Blood Culture Workup No organisms (test code = 600-7) isolated Lab Interpretation (test Normal code = 73799-4) [facility] CULTURE [id number] 23:01:39 Test Item Value Reference Range Interpretation Comments Blood Culture-Aerobic No organisms No growth Previo us (test code = 17631-3) isolated prelim inary verified result was Culture In Progress on 03/14/2022 at 210 1 CDTPrevious preliminary verified result was No growth a t 24 hours on 03/15/2022 at 180 1 CDTPrevious preliminary verified result was No growth a t 48 hours on 2022 at 180 1 CDTPrevious preliminary verified result was No growth a t 72 hours on 03/19/2022 at 10 43 CDT Blood No organisms No growth Previous Culture-Anaerobic isolated preliminar y (test code = 97811-4) verifi ed result was Culture In Progress on 03/14/2022 at 210 1 CDTPrevious preliminary verified result was No growth a t 24 hours on 03/15/2022 at 180 1 CDTPrevious preliminary verified result was No growth a t 48 hours on 2022 at 180 1 CDTPrevious preliminary verified result was No growth a t 72 hours on 03/19/2022 at 10 43 CDT Lab Interpretation Normal (test code = 15768-0) [facility] [place]. METABOLIC PANEL (47423)2022 11:10:10 Test Item Value Reference Range Interpretation Comments NA (test code = 137 mmol/L 135-145 [id number]) K (test code = 4.0 mmol/L 3.5-5 3591915942) CL (test code = 107 mmol/L 98-108 5664715367) CO2 TOTAL (test code = 27 mmol/L 23-31 3775146418) AGAP (test code = 2-16 9509617646) BUN (test code = 8 mg/dL 7-23 7580436352) GLUCOSE (test code = 102 mg/dL 70-110 6639087841) CREATININE (test code = 0.58 mg/dL 0.6-1.25 L 3979465166) TOTAL BILI (test code = 0.2 mg/dL 0.1-1.0 3100664603) CALCIUM (test code = 8.4 mg/dL 8.6-10.6 L 2213280923) T PROTEIN (test code = 7.7 g/dL 6.3-8.2 2641900815) ALBUMIN (test code = 4.0 g/dL 3.5-5 6358834319) ALK PHOS (test code = 137 U/L 34-122 H 8784551407) ALTv (test code = 17 U/L 5-50 1742-6) AST(SGOT) (test code = 22 U/L 13-40 9805667452) eGFR (test code = mL/min/1.73m2 5026213855) SUMEET (test code = SUMEET) Association of Glomerular Filtration Rate (GFR) and Staging of Kidney Disease* + --+ --+ ------+| GFR (mL/min/1.73 m2) ?| With Kidney Damage ?| ?Without Kidney Damage+ --------+ --------+ +| ?>90 ?| ?Stage one ?| ? Normal ?+ ---+ ---+ -------+| ?60-89 ?| ?Stage two ?| ? Decreased GFR ? + --+ --+ ------+| ?30-59 ?| ?Stage three ?| ? Stage three ? + --+ --+ ------+| ?15-29 ?| ?Stage four ? | ? Stage four ?+ ---+ ---+ -------+| ?<15 (or dialysis) ? ?| ?Stage five ? | ? Stage five ?+ ---+ ---+ -------+ *Each stage assumes the associated GFR level has been in effect for at least three months. ?Stages 1 to 5, with or without kidney disease, indicate chronic kidney disease. Notes: Determination of stages one and two (with eGFR >59mL/min/1.73 m2) requires estimation of kidney damage for at least three months as defined by structural or functional abnormalities of the kidney, manifested by either:Pathological abnormalities or Markers of kidney damage (including abnormalities in the composition of the blood or urine or abnormalities in imaging tests). Lab Interpretation Abnormal (test code = 31050-3) [facility] WITH [id number] 10:41:06 Test Item Value Reference Range Interpretation Comments WBC (test code = See_Comment [Automated 6690-2) message] The sy stem which generated this result transmitted reference range : 4.20 - 10.70 10*3/?L. The reference range was not used to interpret this result as normal/abnormal . RBC (test code = See_Comment [Automated 789-8) message] The sy stem which generated this result transmitted reference range : 4.26 - 5.52 10*6/?L. The reference range was not used to interpret this result as normal/abnormal . HGB (test code = 12.9 g/dL 12.2-16.4 718-7) HCT (test code = 38.8 % 38.4-49.3 4544-3) MCV (test code = 84.7 fL 81.7-95.6 787-2) MCH (test code = 28.2 pg 26.1-32.7 785-6) MCHC (test code = 33.2 g/dL 31.2-35 786-4) RDW-SD (test code = 44.7 fL 38.5-51.6 10670-7) RDW-CV (test code = 14.5 % 12.1-15.4 788-0) PLT (test code = See_Comment H [Automated 777-3) message] The sy stem which generated this result transmitted reference range : 150 - 328 10*3/ ?L. The reference r khadijah was not used to interpret this result as normal/abnormal . MPV (test code = 8.7 fL 9.8-13 L 51367-3) NRBC/100 WBC (test See_Comment [Automat ed code = 3329435272) message] The system which generated this result transmitted reference range : 0.0 - 10.0 /100 WBCs. The refer ence range was not u sed to interpret th is result as normal/abnormal . NRBC x10^3 (test code See_Comment [Auto mated = 7387498573) message] The s ystem which generated this result transmitted reference range : 10*3/?L. The reference range was not used to interpret this result as normal/abnormal . GRAN MAT (NEUT) % 56.8 % (test code = 770-8) IMM GRAN % (test code 0.40 % = 8371921737) LYMPH % (test code = 33.5 % 736-9) MONO % (test code = 6.2 % 5905-5) EOS % (test code = 2.8 % 713-8) BASO % (test code = 0.3 % 706-2) GRAN MAT x10^3(ANC) 5.06 10*3/uL 1.99-6.95 (test code = 4449253909) IMM GRAN x10^3 (test 0.04 10*3/uL 0-0.06 code = 2296723213) LYMPH x10^3 (test code 2.99 10*3/uL 1.09-3.23 = 731-0) MONO x10^3 (test code 0.55 10*3/uL 0.36-1.02 = 742-7) EOS x10^3 (test code = 0.25 10*3/uL 0.06-0.53 711-2) BASO x10^3 (test code 0.03 10*3/uL 0.01-0.09 = 704-7) Lab Interpretation Abnormal (test code = 51602-1) [facility] (ALB,T.PRO,BILI T,BU/BC,ALT,AST,ALK PHOS)2022-03-15 11:20:14 Test Item Value Reference Range Interpretation Comments TOTAL BILI (test code = 4078414201) 0.3 mg/dL 0.1-1.1 BILI UNCON (test code = 4262154102) 0.1 mg/dL 0.1-1.1 BILI CONJ (test code = 8046841419) 0.0 mg/dL 0-0.3 T PROTEIN (test code = 4847492348) 7.9 g/dL 6.3-8.2 ALBUMIN (test code = 5046028255) 4.1 g/dL 3.5-5 ALK PHOS (test code = 6049410563) 149 U/L 34-122 H ALTv (test code = 1742-6) 19 U/L 5-50 AST(SGOT) (test code = 0506842296) 31 U/L 13-40 Lab Interpretation (test code = Abnormal 43362-0) [facility] [id number] 19:20:42 Test Item Value Reference Interpretation Comments Range C. trachomatis NOT DETECTED RNA, TMA (test code = 1474697) N. gonorrhoeae NOT DETECTED REFERENCE RA NGE: NOT RNA, TMA (test DETECTED Meth odology: code = 3729249) Transcriptio n Mediated Amplification ( TMA)to detect RNA. The analytical perf ormance characteristics of thisassay, when used to test SurePat h(TM) specimens haveb een determined by [employer]. Th e modificationsha ve not been cleared or approved by the FDA. This assayhas b een validated pursu ant to the CLIA regula tions andis used for clinical purpos es. For additional information, pl ease refer tohttps://educa tion.[employer]/faq /XXQ282(This li nk is being provided for informational/e ducatio nal purposes on ly.) SUMEET (test code = Performing Lab SUMEET) *[facility] [employer] [address] [place] [address] Phoebe Dumont MD [facility] Metabolic [id number] 07:12:27 Test Item Value Reference Range Interpretation Comments Sodium (test code = 137 meq/L 145-747 6277-2) Potassium (test code = 3.7 meq/L 3.5-5.1 2823-3) Chloride (test code = 105 meq/L 98-107 2075-0) CO2 (test code = 22 meq/L 22-29 2028-9) BUN (test code = 6 mg/dL 7-21 L 3094-0) Creatinine (test code 0.65 mg/dL 0.57-1.25 = 2160-0) Glucose (test code = 102 mg/dL 70-105 2345-7) Calcium (test code = 9.1 mg/dL 8.4-10.2 54739-6) EGFR (test code = 139 mL/min/1.[place] [address]-8) NOT ACCURATE CREATININE CLEARANCE IN PREDICTING GLOMERULAR FILTRATION RATE . ESTIMATED GFR I S NOT APPLICABLE FOR DIALYSIS PATIENTS. SUMEET (test code = SUMEET) Asset Administrator ID - YARED G Lab Interpretation Abnormal (test code = 54061-1) [facility] [id number] 07:12:27 Test Item Value Reference Range Interpretation [...] (test code = 697) EGFR (BEAKER) (test 139 mL/min/1.73 ESTIM ATED GFR IS code = 1092) sq m NOT ACCURATE CREATININE CLEARANCE IN PREDICTING GLOMERULAR FILTRATION RATE . ESTIMATED GFR I S NOT APPLICABLE FOR DIALYSIS PATIEN TS. Asset Administrator ID - YARED GCBC with platelet count + automated [id number] 05:35:22 Test Item Value Reference Range Interpretation Comments WBC (test code = 6690-2) 9.0 See_Comment [A utomated message] The system [employer] generated this result transmitted ref erence range: 3.5 - 10 .5 K/L. The refe rence range was not u sed to interpret this result as normal/abnor mal. RBC (test code = 789-8) 4.53 See_Comment L [Au tomated message] The system [employer] generated this result transmitted ref erence range: 4.63 - 6 .08 M/L. The refe rence range was not u sed to interpret this result as normal/abnor mal. MCHC (test code = 786-4) 32.7 See_Comment L [A utomated message] The system [employer] generated this result transmitted ref erence range: [...] See_Comment [Aut omated message] 777-3) The system [employer] generated this result transmitted ref erence range: 150 - 45 0 K/CU MM. The referen ce range was not u sed to interpret this result as normal/abnor mal. MPV (test code = 8.6 fL 9.4-12.4 L 18626-8) nRBC (test code = 413) 0 See_Comment [Aut omated message] The system [employer] generated this result transmitted ref erence range: [...] H [Aut omated message] 670) The system [employer] generated this result transmitted ref erence range: 1.78 - 5 .38 K/L. The refe rence range was not u sed to interpret this result as normal/abnor mal. # Lymphs (test code = 1.84 See_Comment [Auto mated message] 414) The system [employer] generated this result transmitted ref erence range: 1.32 - 3 .57 K/L. The refe rence range was not u sed to interpret this result as normal/abnor mal. # Monos (test code = 0.64 See_Comment [Autom ated message] 415) The system [employer] generated this result transmitted ref erence range: 0.30 - 0 .82 K/L. The refe rence range was not u sed to interpret this result as normal/abnor mal. # Eos (test code = 416) 0.21 See_Comment [Au tomated message] The system [employer] generated this result transmitted ref erence range: 0.04 - 0 .54 K/L. The refe rence range was not u sed to interpret this result as normal/abnor mal. # Baso (test code = 417) 0.03 See_Comment [A utomated message] The system [employer] generated this result transmitted ref erence range: 0.01 - 0 .08 K/L. The refe rence range was not u sed to interpret this result as normal/abnor mal. Immature 0 % 0-1 Granulocytes-Relative (test code = 2801) Lab Interpretation (test Abnormal code = 25768-7) [facility] W/PLT COUNT & AUTO [id number] 05:35:22 Test Item Value Reference Range Interpretation [...] (BEAKER) (test code = 2801) BASIC METABOLIC [id number] 06:57:58 Test Item Value Reference Range Interpretation [...] S NOT APPLICABLE FOR DIALYSIS PATIEN TS. Asset Administrator ID - PIAYA LCBC W/PLT COUNT & AUTO [id number] 05:40:05 Test Item Value Reference Range Interpretation [...] 0-1 PERCENT (BEAKER) (test code = 2801) [id number] 14:40:12 Test Item Value Reference Range Interpretation Comments RPR (test code = 71058-6) Nonreactive Nonreactive Lab Interpretation (test code = Normal 24535-1) [facility] 14:[facility]12 Test Item Value Reference Range Interpretation Comments RPR SCREEN (BEAKER) (test code = Nonreactive Nonreactive 420) Lactate dehydrogenase (LDH)2021-04-18 12:27:24 Test Item Value Reference Range Interpretation Comments LDH (test code = 2532-0) 219 U/L 125-220 SUMEET (test code = SUMEET) Asset Administrator ID Joe HALEY F Lab Interpretation (test Normal code = 29766-9) [facility]LDH)2021-04-18 12:27:24 Test Item Value Reference Range Interpretation Comments LACTATE DEHYDROGENASE (BEAKER) (test 219 U/L 125-220 code = 635) Asset Administrator ID Joe TERA FAlpha fetoprotein (AFP), tumor [id number] 11:20:09 Test Item Value Reference Range Interpretation Comments Alpha-Fetoprotein <2.0 See_Comment [Automate d (test code = 1834-1) message ] The system which generated this result transmit brook reference range : <10.0 ng/mL. Th e reference range was not used to interpret this result as normal/abnormal . SUMEET (test code = SUMEET) Asset Administrator ID Joe HALEY F Lab Interpretation Normal (test code = 99083-1) [facility]AFP), TUMOR [id number] 11:20:09 Test Item Value Reference Range Interpretation Comments ALPHA-FETOPROTEIN (BEAKER) (test code < ng/mL <10.0 = 1094) Asset Administrator ID - TERA FhCG, quantitative, [id number] 09:46:47 Test Item Value Reference Range Interpretation Comments hCG Quant (test code 5 mIU/mL = 01079-4) SUMEET (test code = SUMEET) Non- Females: <10 mIU/mL Females: Gestation Age Reference Range(mIU/mL) 0.2-1 Week 5-50 1-2 Weeks 50-500 2-3 Weeks 100-5,000 3-4 Weeks 500-10,000 4-5 Weeks 1,000-50,000 5-6 Weeks 10,000-100,000 6-8 Weeks 15,000-200,000 2-3 Months 10,000-100,000 Asset Administrator ID - TERA [place] [facility], QUANTITATIVE, [id number] 09:46:47 Test Item Value Reference Range Interpretation Comments GONADOTROPIN, CHORIONIC (HCG) QUANT 5 mIU/mL (BEAKER) (test code = 649) Non- Females: <10 mIU/mL Females: Gestation Age Reference Range(mIU/mL) 0.2-1 Week 5-50 1-2 Weeks 50-500 2-3 Weeks 100-5,000 3-4 Weeks 500-10,000 4-5 Weeks 1,000-50,000 5-6 Weeks 10,000-100,000 6-8 Weeks 15,000- 200,000 2-3 Months 10,000-100,000 Asset Administrator ID - TERA FComprehensive metabolic [id number] 08:04:37 Test Item Value Reference Range Interpretation Comments Protein, Total (test 7.2 See_Comment [Autom ated code = 2885-2) message] The system which generated this result transmitted reference range : 6.0 - 8.3 gm/dL . The reference range was not used to interpr et this result as normal/abnormal . Albumin (test code = 3.3 g/dL 3.5-5.0 L 44089-0) Alkaline Phosphatase 122 U/L 40-150 (test code = 6768-6) Total Bilirubin (test 0.8 mg/dL 0.2-1.2 code = 1975-2) Sodium (test code = 137 meq/L 889-729 9549-2) Potassium (test code 3.7 meq/L 3.5-5.1 = 2823-3) Chloride (test code = 108 meq/L 98-107 H 2074-0) CO2 (test code = 21 meq/L 22-29 L 2027-9) BUN (test code = 6 mg/dL 7-21 L 3094-0) Creatinine (test code 0.62 mg/dL 0.57-1.25 = 2160-0) Glucose (test code = 120 mg/dL 70-105 H 2345-7) Calcium (test code = 8.9 mg/dL 8.4-10.2 54648-9) AST (test code = 14 U/L 5-34 1920-8) ALT (test code = 13 U/L 6-55 1742-6) EGFR (test code = 147 mL/min/1.[place] [address]-3) NOT ACCURATE CREATININE CLEARANCE IN PREDICTING GLOMERULAR FILTRATION RATE . ESTIMATED GFR I S NOT APPLICABLE FOR DIALYSIS PATIENTS. SUMEET (test code = SUMEET) Asset Administrator ID - YARED GOperator ID - TERA [place] Lab Interpretation Abnormal (test code = 59988-6) [facility] [id number] 08:04:37 Test Item Value Reference Range Interpretation [...] S NOT APPLICABLE FOR DIALYSIS PATIEN TS. Asset Administrator ID - YARED WOODperator ID - TERA FManual [id number] 07:20:32 Test Item Value Reference Range Interpretation Comments % Neutros (test code = 89 % 2815) % Lymphs (test code = 6 % [...] = 3438) SUMEET (test code = SUMEET) Asset Administrator ID - ventura Yunior comments: Slide comments: Lab Interpretation (test Abnormal code = 54775-3) [facility](CELLAVISION MANUAL DIFF)2021-04-18 07:20:32 Test Item Value Reference [...] CONCENTRATION Adequate (CELLAVISION)(BEAKER) (test code = 3438) Asset Administrator ID - ventura Mojica comments: Slide comments:CBC W/PLT COUNT & AUTO [id number] 07:20:30 Test Item Value Reference Range Interpretation [...] code = 413) HIV-1 Antigen with HIV-1/2 [id number] 06:43:00 Test Item Value Reference Range Interpretation Comments HIV-1 Antigen with HIV Nonreactive Nonreactive 1&2 Antibody (test code = 24009-3) SUMEET (test code = SUMEET) Asset Administrator ID - PB L Lab Interpretation (test Normal code = 25305-6) [facility] ANTIGEN WITH HIV-1/2 [id number] 06:43:00 Test Item Value Reference Range Interpretation Comments HIV-1 ANTIGEN WITH HIV 1\\T\\2 Nonreactive Nonreactive ANTIBODY (2) (BEAKER) (test code = 2586) Asset Administrator ID Joe AMBRIZ LHepatitis panel, [id number] 06:42:59 Test Item Value Reference Range Interpretation Comments Hep A IgM (test code = Nonreactive Nonreactive 42595-5) Hep B C IgM (test code = Nonreactive Nonreactive 88237-2) Hepatitis C Ab (test Nonreactive Nonreactive code = 98262-1) Hepatitis B surface Nonreactive Nonreactive antigen (test code = 5195-3) SUMEET (test code = SUMEET) Asset Administrator ID - PB L Lab Interpretation (test Normal code = 52205-5) [facility], [id number] 06:42:59 Test Item Value Reference Range Interpretation Comments HEPATITIS A IGM ANTIBODY (BEAKER) Nonreactive Nonreactive (test code = 498) HEPATITIS B CORE IGM ANTIBODY Nonreactive Nonreactive (BEAKER) (test code = 645) HEPATITIS C ANTIBODY (BEAKER) Nonreactive Nonreactive (test code = 367) HEPATITIS B SURFACE ANTIGEN (2) Nonreactive Nonreactive (BEAKER) (test code = 2585) Asset Administrator ID - PB L"
[2022-05-25 04:34] LABS: Absolute Lymphocytes (CBC) 2.5 K/uL (0.7-4.9); Hematocrit 37.6 % (39.6-49.0); Lymphocytes % 19.7 % (15.3-44.8); MCV 83.7 fL (80-100); MPV 6.6 fL (7.6-11.3); RBC Red Blood Cell Count 4.49 M/uL (4.33-5.43)
[2022-05-25 04:55] LABS: Albumin 3.2 g/dL (3.4-5.0); Bilirubin Total 0.2 mg/dL (0.2-1.0); Potassium 3.3 mmol/L (3.5-5.1); Protein, Total 9.2 g/dL (6.4-8.2)
[2022-05-25] MEDS ORDERED: ASPIRIN 81 MG CHEWABLE TABLET ONE (06:13)
[2022-05-25] MEDS ORDERED: ONDANSETRON 4 MG/2 ML VIAL ONE (06:14)
[2022-05-25] MEDS ORDERED: FAMOTIDINE 20 MG/2 ML VIAL IV ONE (06:14)
[2022-05-25] MEDS ORDERED: MORPHINE 4 MG/ML SYR ONE (06:14)
[2022-05-25] MEDS ORDERED: NA CHLORIDE 0.9% 1,000 ML ONE (06:14)
--- NOTE | 2022-05-25 08:12 | RAD REPORT ---
EXAM DESCRIPTION: CT - Chest For Pe Angio - 05/25/2022 7:38 am CLINICAL HISTORY: chest pain COMPARISON: Chest Single View dated 05/25/2022; Abdomen Pelvis W Contrast dated 03/14/2022 TECHNIQUE: Dynamically enhanced 3 mm thick images of the chest were obtained during administration o f approximately 150mL Isovue 370 IV contrast. Coronal and oblique MIP reconstruction images were gene rated and reviewed. Exam utilizes a protocol to evaluate the pulmonary arterial tree. All CT scans are performed using dose optimization technique as appropriate and may include automated exposure control or mA/KV adjustment according to patient size. FINDINGS: No pulmonary emboli are identified. The aorta as imaged shows no acute or suspicious finding. No pericardial thickening or effusion. No acute infiltrate is present. The patient has innumerable variably sized rounded noncalcified pulmo nary nodules ranging from a few mm to 2.5 cm in size. These were not present in the lung bases on the 03/14/2022 CT examination. No necrotic component seen. No pleural effusion or pleural thickening. Patient has multiple abnormal mediastinal and hilar lymph nodes. No chest wall masses or abnormal axi llary lymphadenopathy. IMPRESSION: No pulmonary emboli identified. Numerous noncalcified pulmonary nodules have developed throughout the lung canchola new from March 14 imaging. There is mediastinal and hilar abnormal lymphadenopathy. Although the patient is young, a neoplastic process would be a primary consideration.Granulomatous in fectious process is possible. Pattern is not a typical TB presentation.
--- NOTE | 2022-05-25 08:13 | RAD REPORT ---
EXAM DESCRIPTION: US - Extrem Venous W Compress [place] - 05/25/2022 7:53 am CLINICAL HISTORY: PAIN COMPARISON: None. TECHNIQUE: Real-time sonographic evaluation of the bilateral lower extremity common femoral, superfi cial femoral, popliteal and posterior tibial veins was performed. FINDINGS: Normal compressibility, flow augmentation, phasic flow and spontaneous flow are identified in the left and right lower extremity common femoral, superficial femoral, popliteal and posterior t ibial veins. No intraluminal filling defects seen. IMPRESSION: No DVT in either lower extremity.
[2022-05-25] MEDS ORDERED: ENOXAPARIN 100 MG/ML SYR SQ ONE (08:15)
[2022-05-25] MEDS ORDERED: POTASSIUM 25 MEQ EFFERV TAB ONE (08:15)
--- NOTE | 2022-05-25 08:28 | EDPHYS ---
Physician Documentation [facility] Name: Aidan East Age: 37 yrs Sex: Male : 1985 Arrival Date: 05/25/2022 Time: 03:43 Bed 20 Private MD: Yobany Esquivel HPI: 05/25 07:25 This 37 yrs old Male presents to ER via Wheelchair with complaints of Chest uyen Pain > 30 y/o. 07:25 The patient or guardian reports chest pain that is located primarily in the anterior uyen chest wall, left. The pain does not radiate. Associated signs and symptoms: Pertinent positives: shortness of breath. The chest pain is described as sharp. Historical: - Allergies: 04:04 No Known Allergies; bb - Home Meds: 04:04 None [Active]; bb - PMHx: 04:04 paraplegic; Testicular cancer; UTI; bb - PSHx: 04:04 T12 surgery; Testicle removed; bb - Immunization history:: Client reports having NOT received the Covid vaccine. - Social history:: Smoking status: Patient reports the use of cigarette tobacco products. ROS: 07:27 Constitutional: Negative for fever, chills, and weight loss, Eyes: Negative for injury, uyen pain, redness, and discharge, ENT: Negative for injury, pain, and discharge, Neck: Negative for injury, pain, and swelling, Abdomen/GI: Negative for abdominal pain, nausea, vomiting, diarrhea, and constipation, Back: Negative for injury and pain, : Negative for injury, bleeding, discharge, and swelling, MS/Extremity: Negative for injury and deformity, Skin: Negative for injury, rash, and discoloration, Neuro: Negative for headache, weakness, numbness, tingling, and seizure, Psych: Negative for depression, anxiety, suicide ideation, homicidal ideation, and hallucinations, Allergy/Immunology: Negative for hives, rash, and allergies, Endocrine: Negative for neck swelling, polydipsia, polyuria, polyphagia, and marked weight changes, Hematologic/Lymphatic: Negative for swollen nodes, abnormal bleeding, and unusual bruising. 07:27 Cardiovascular: Positive for chest pain. 07:27 Respiratory: Positive for cough, pleurisy, of the anterior aspect of left upper chest, right lateral anterior chest, right lateral posterior chest and left breast. Exam: 07:27 Constitutional: This is a well developed, well nourished patient who is awake, alert, uyen and in no acute distress. Head/Face: Normocephalic, atraumatic. Eyes: Pupils equal round and reactive to light, extra-ocular motions intact. Lids and lashes normal. Conjunctiva and sclera are non-icteric and not injected. Cornea within normal limits. Periorbital areas with no swelling, redness, or edema. ENT: Nares patent. No nasal discharge, no septal abnormalities noted. Tympanic membranes are normal and external auditory canals are clear. Oropharynx with no redness, swelling, or masses, exudates, or evidence of obstruction, uvula midline. Mucous membranes moist. Neck: Trachea midline, no thyromegaly or masses palpated, and no cervical lymphadenopathy. Supple, full range of motion without nuchal rigidity, or vertebral point tenderness. No Meningismus. Cardiovascular: Regular rate and rhythm with a normal S1 and S2. No gallops, murmurs, or rubs. Normal PMI, no JVD. No pulse deficits. Respiratory: Lungs have equal breath sounds bilaterally, clear to auscultation and percussion. No rales, rhonchi or wheezes noted. No increased work of breathing, no retractions or nasal flaring. Abdomen/GI: Soft, non-tender, with normal bowel sounds. No distension or tympany. No guarding or rebound. No evidence of tenderness throughout. Back: No spinal tenderness. No costovertebral tenderness. Full range of motion. Male : Normal genitalia with no discharge or lesions. Skin: Warm, dry with normal turgor. Normal color with no rashes, no lesions, and no evidence of cellulitis. MS/ Extremity: Pulses equal, no cyanosis. Neurovascular intact. Full, normal range of motion. Neuro: Awake and alert, GCS 15, oriented to person, place, time, and situation. Cranial nerves II-XII grossly intact. Motor strength 5/5 in all extremities. Sensory grossly intact. Cerebellar exam normal. Normal gait. Psych: Awake, alert, with orientation to person, place and time. Behavior, mood, and affect are within normal limits. 07:27 Cardiovascular: Exam negative for Rate: tachycardic, actual rate is 115 bpm, Rhythm: regular, Pulses: Pulses are 4+ in bilateral radial, brachial, femoral, popliteal, posterior tibial and and dorsalis pedis arteries.. Heart sounds: normal, normal S1and S2, no S3 or S4, no murmur, no rub, no gallop, Edema: is not appreciated, JVD: is not appreciated. 07:27 ECG was reviewed by the Attending Physician. 08:31 ECG was reviewed by the Attending Physician. uyen Vital Signs: 04:02 BP 125 / 84; Pulse 115; Resp 22 S; Temp 98(O); Pulse Ox 96% on R/A; Weight 113.4 kg bb (R); Height 6 ft. 1 in. (185.42 cm) (R); Pain 10/10; 09:17 Pulse 101; Pulse Ox 96% ; ap3 09:18 BP 113 / 96 LA (auto/); ap3 09:34 BP 127 / 96; Pulse 103; Pulse Ox 100% ; ap3 10:38 BP 124 / 86; Pulse 100; Resp 22; Pulse Ox 100% on R/A; Pain 2/10; ld1 04:02 Body Mass Index 32.98 (113.40 kg, 185.42 cm) MDM: 05:42 Patient medically screened. uyen 07:30 Differential diagnosis: abnormal EKG, acute myocardial infarction, acute pericarditis, uyen coronary artery disease chest wall pain, hiatal hernia, pancreatitis, pulmonary embolus, stable angina, thoracic aortic disection, unstable angina. HEART Score: History: Slightly Suspicious (0), ECG: Non specific repolarization disturbance / LBTB / PM (1), Age: < or = 45 years (0), Risk Factors: 1 or 2 risk factors (1), [+ Family HX] [Obesity] Troponin: < or = 1 x Normal Limit (0). The patient's deep vein thrombosis risk score was calculated as follows: Total Score: 0. This patient was found to be at low risk for a deep vein thrombosis by using the Well's assessment criteria. The patient's pulmonary embolism risk score was calculated as follows: the patients heart rate is greater than 100 beats per minute (1.5 Pts) Total Score: 0-2 points. This patient was found to be at low risk for a pulmonary embolism by using the Well's assessment criteria. MUNIR Risk Score: TOTAL SCORE = 0. Data reviewed: vital signs, nurses notes, lab test result(s), EKG, radiologic studies, CT scan, plain films. Data interpreted: library monitor: rate is 115 beats/min, rhythm is sinus tachycardia, Pulse oximetry: on room air is 96 %. Test interpretation: by ED physician or midlevel provider: ECG, plain radiologic studies. Counseling: I had a detailed discussion with the patient and/or guardian regarding: the historical points, exam findings, and any diagnostic results supporting the discharge/admit diagnosis, lab results, radiology results. 05/25 03:54 Order name: CBC with Diff; Complete Time: 06:53 [facility] 05/25 04:03 Order name: NT PRO-BNP; Complete Time: 06:53 [facility] 05/25 04:03 Order name: Troponin HS; Complete Time: 06:53 [facility] 05/25 04:03 Order name: XRAY Chest (1 view) [facility] 05/25 04:30 Order name: Comprehensive Metabolic Panel; Complete Time: 06:53 [facility] 05/25 04:30 Order name: Lipase; Complete Time: 06:53 [facility] 05/25 05:44 Order name: D-Dimer; Complete Time: 07:29 [facility] 05/25 06:08 Order name: CT Chest For PE Angio; Complete Time: 08:14 05/25 07:24 Order name: Troponin High Sensitivity: 8am; Complete Time: 09:36 [facility] 05/25 07:29 Order name: Blood Culture Adult (2) [facility] 05/25 07:29 Order name: Lactate w/ 2H reflex if indic.; Complete Time: 09:36 [facility] 05/25 03:54 Order name: IV Saline Lock; Complete Time: 04:10 [facility] 05/25 03:54 Order name: Labs collected and sent; Complete Time: 04:10 [facility] 05/25 04:03 Order name: EKG; Complete Time: 04:04 [facility] 05/25 04:03 Order name: Cardiac monitoring; Complete Time: 04:06 [facility] 05/25 04:03 Order name: EKG - Nurse/Tech; Complete Time: 04:06 [facility] 05/25 07:14 Order name: US Extremity Venous W Compression [place]; Complete Time: 08:14 [facility] 05/25 07:24 Order name: EKG; Complete Time: 07:25 [facility] 05/25 04:03 Order name: O2 Per Protocol; Complete Time: 04:06 [facility] 05/25 04:03 Order name: O2 Sat Monitoring; Complete Time: 04:05 [facility] 05/25 07:24 Order name: EKG - Nurse/Tech; Complete Time: 08:28 uyen EC: Rate is 111 beats/min. Rhythm is regular. QRS [place] is Normal. IN interval is normal. uyen QRS interval is normal. QT interval is normal. No Q waves. T waves are Normal. No ST changes noted. Clinical impression: Sinus tachycardia. Interpreted by me. Reviewed by me. 08:31 Rate is 102 beats/min. Rhythm is regular. QRS [place] is Normal. IN interval is normal. uyen QRS interval is normal. QT interval is normal. No Q waves. T waves are Normal. No ST changes noted. Clinical impression: NSR w/ Non-specific ST/T Changes, Sinus tachycardia, and No evidence of ischemia. Interpreted by me. Reviewed by me. Administered Medications: 06:09 CANCELLED (Other Intervention Used): morphine 4 mg IM once bb 06:21 Drug: morphine 4 mg Route: IVP; Infused Over: 4 mins; Site: right antecubital; vc1 08:55 Follow up: Response: No adverse reaction ap3 06:21 Drug: Zofran (Ondansetron) 4 mg Route: IVP; Site: right antecubital; vc1 08:56 Follow up: Response: No adverse reaction; Nausea is decreased ap3 06:22 Drug: Aspirin Chewable Tablet 162 mg Route: PO; vc1 08:55 Follow up: Response: No adverse reaction ap3 06:22 Drug: NS 0.9% 1000 ml Route: IV; Rate: 1 bolus; Site: right antecubital; vc1 08:56 Follow up: IV Status: Completed infusion ap3 06:22 Drug: Pepcid (famotidine) 20 mg Route: IVP; Site: right antecubital; vc1 08:28 Drug: Potassium Effervescent Tablet 50 mEq Route: PO; ap3 09:17 Follow up: Response: No adverse reaction ap3 08:28 Drug: Lovenox (enoxaparin) 100 mg Route: Sub-Q; Site: abdomen; ap3 08:55 Follow up: Response: No adverse reaction ap3 Disposition Summary: 05/25/22 08:27 Discharge Ordered Location: Home uyen Problem: new uyen Symptoms: have improved uyen Condition: Stable uyen Diagnosis - Disseminated malignant neoplasm, unspecified - pulmonary, testicular uyen - Pleurisy uyen Followup: uyen - With: Private Physician - When: 1 - 2 days - Reason: Recheck today's complaints, Re-evaluation by your physician Followup: uyen - With: Jenni Gonzalez MD - When: 2 - 3 days - Reason: Recheck today's complaints, Re-evaluation by your physician Discharge Instructions: - Discharge Summary Sheet uyen - Pleurisy uyen - Chemotherapy uyen - Metastatic Cancer uyen - Pleurisy, [id number] [facility] Forms: - Medication Reconciliation Form uyen - Thank You Letter uyen - Antibiotic Education uyen - Prescription Opioid Use [facility] Prescriptions: - Pepcid 20 mg Oral Tablet - take 1 tablet by ORAL route every 12 hours for 14 days; 28 tablet; Refills: 0, uyen Product Selection Permitted - Diclofenac Sodium 75 mg Oral tablet,delayed release (DR/EC) - take 1 tablet by ORAL route 2 times per day; 20 tablet; Refills: 0, Product uyen Selection Permitted Signatures: Dispatcher [employer] EDYobany Ricci MD MD cha Rittger, Kevin, MD MD kdr Ballard, Brenda, RN RN Ana Paula Dickey RN RN ap3 Charity Canales RN RN vc1 Corrections: (The following items were deleted from the chart) 04:29 03:55 COMPREHENSIVE METABOLIC PANEL+C.LAB.BRZ ordered. EDMS EDMS 04:29 03:55 LIPASE+C.LAB.BRZ ordered. EDMS EDMS 04:30 04:03 BASIC METABOLIC PANEL+C.LAB.BRZ ordered. EDMS EDMS 06:09 06:08 morphine 4 mg IM once ordered. alina fuller
--- NOTE | 2022-05-25 08:28 | ER ---
Nurse's Notes [facility] Name: Aidan East Age: 37 yrs Sex: Male : 1985 Arrival Date: 05/25/2022 Time: 03:43 Bed 20 Private MD: Diagnosis: Disseminated malignant neoplasm, unspecified-pulmonary, testicular;Pleurisy Presentation: 05/25 04:02 Chief complaint: Patient states: he started having chest pain about 45 mins ago pain is bb 10/10 does not radiate the pain is a stabbing pain. Coronavirus screen: At this time, the client does not indicate any symptoms associated with coronavirus-19. Ebola Screen: No symptoms or risks identified at this time. Initial Sepsis Screen: Does the patient meet any 2 criteria? No. Patient's initial sepsis screen is negative. Does the patient have a suspected source of infection? No. Patient's initial sepsis screen is negative. Risk Assessment: Do you want to hurt yourself or someone else? Patient reports no desire to harm self or others. Onset of symptoms was May 25, 2022. 04:02 Method Of Arrival: Wheelchair bb 04:02 Acuity: SPIKE 3 bb Historical: - Allergies: 04:04 No Known Allergies; bb - Home Meds: 04:04 None [Active]; bb - PMHx: 04:04 paraplegic; Testicular cancer; UTI; bb - PSHx: 04:04 T12 surgery; Testicle removed; bb - Immunization history:: Client reports having NOT received the Covid vaccine. - Social history:: Smoking status: Patient reports the use of cigarette tobacco products. Screenin:06 Abuse screen: Denies threats or abuse. Nutritional screening: No deficits noted. bb Tuberculosis screening: No symptoms or risk factors identified. Fall Risk Secondary diagnosis (15 points) impaired mobility, IV access (20 points). Gait- Impaired (20 pts.). Mental Status- Oriented to own ability (0 pts). Total Kuhn Fall Scale indicates High Risk Score (45 or more points). Fall prevention measures have been instituted. Family Present and informed to notify staff if the need to leave the bedside As available patient and family educated on Fall Prevention Program and Strategies. Assessment: 04:06 General: Appears uncomfortable, Behavior is cooperative, anxious. Pain: Complains of bb pain in chest Pain does not radiate. Pain currently is 10 out of 10 on a pain scale. Quality of pain is described as stabbing, Pain began suddenly. Neuro: Level of Consciousness is awake, alert, obeys commands, Oriented to person, place, time, situation. Cardiovascular: Capillary refill < 3 seconds Patient's skin is warm and dry. Rhythm is sinus tachycardia. Respiratory: Respiratory effort is unlabored. GI: No signs and/or symptoms were reported involving the gastrointestinal system. Derm: Skin is pink, warm \T\ dry. Musculoskeletal: lower extremities paralyzed. 09:14 General: awaiting for patients repeat troponin levels to result prior to patient being ap3 discharged.. 09:17 Reassessment: Patient and/or family updated on plan of care and expected duration. Pain ap3 level reassessed. Patient is alert, oriented x 3, equal unlabored respirations, skin warm/dry/pink. Vital Signs: 04:02 BP 125 / 84; Pulse 115; Resp 22 S; Temp 98(O); Pulse Ox 96% on R/A; Weight 113.4 kg bb (R); Height 6 ft. 1 in. (185.42 cm) (R); Pain 10/10; 09:17 Pulse 101; Pulse Ox 96% ; ap3 09:18 BP 113 / 96 LA (auto/); ap3 09:34 BP 127 / 96; Pulse 103; Pulse Ox 100% ; ap3 10:38 BP 124 / 86; Pulse 100; Resp 22; Pulse Ox 100% on R/A; Pain 2/10; ld1 04:02 Body Mass Index 32.98 (113.40 kg, 185.42 cm) bb ED Course: 03:43 Patient arrived in ED. bp1 03:54 Angelo Lopez MD is Attending Physician. kdr 04:04 Triage completed. bb 04:04 Arm band placed on Patient placed in an exam room, on a stretcher, on pvc monitor, bb on pulse oximetry. EKG completed in triage. Results shown to MD. Family accompanied patient. 04:06 Patient has correct armband on for positive identification. property assessment monitor on. Pulse bb ox on. NIBP on. 04:06 Patient maintains SpO2 saturation greater than 95% on room air. bb 04:10 Initial lab(s) drawn, by me, sent to lab. Inserted saline lock: 22 gauge in right ll3 antecubital area, using aseptic technique. Blood collected. 04:37 XRAY Chest (1 view) In Process Unspecified. EDMS 04:37 Charity Canales RN is Primary Nurse. vc1 05:42 Attending Physician role handed off by Angelo Lopez MD uyen 05:42 Yobany Lord MD is Attending Physician. uyen 07:40 CT Chest For PE Angio In Process Unspecified. EDMS 07:54 US Extremity Venous W Compression [place] In Process Unspecified. EDMS 08:27 Jenni Gonzalez MD is Referral Physician. uyen 08:37 Primary Nurse role handed off by Charity Canales RN eb 08:55 Ana Paula Francois RN is Primary Nurse. ap3 10:39 No provider procedures requiring assistance completed. IV discontinued, intact, ld1 bleeding controlled, No redness/swelling at site. Administered Medications: 06:09 CANCELLED (Other Intervention Used): morphine 4 mg IM once bb 06:21 Drug: morphine 4 mg Route: IVP; Infused Over: 4 mins; Site: right antecubital; vc1 08:55 Follow up: Response: No adverse reaction ap3 06:21 Drug: Zofran (Ondansetron) 4 mg Route: IVP; Site: right antecubital; vc1 08:56 Follow up: Response: No adverse reaction; Nausea is decreased ap3 06:22 Drug: Aspirin Chewable Tablet 162 mg Route: PO; vc1 08:55 Follow up: Response: No adverse reaction ap3 06:22 Drug: NS 0.9% 1000 ml Route: IV; Rate: 1 bolus; Site: right antecubital; vc1 08:56 Follow up: IV Status: Completed infusion ap3 06:22 Drug: Pepcid (famotidine) 20 mg Route: IVP; Site: right antecubital; vc1 08:28 Drug: Potassium Effervescent Tablet 50 mEq Route: PO; ap3 09:17 Follow up: Response: No adverse reaction ap3 08:28 Drug: Lovenox (enoxaparin) 100 mg Route: Sub-Q; Site: abdomen; ap3 08:55 Follow up: Response: No adverse reaction ap3 Medication: 04:06 VIS not applicable for this client. bb Outcome: 08:27 Discharge ordered by MD. uyen 10:39 Discharged to home via wheelchair, with family. ld1 10:39 Condition: stable 10:39 Discharge instructions given to patient, Instructed on discharge instructions, follow up and referral plans. medication usage, Demonstrated understanding of instructions, follow-up care, medications, Prescriptions given X 2. 10:39 Patient left the ED. ld1 Signatures: Dispatcher [employer] EDMS Yobany Lord MD MD cha Rittger, Kevin, MD MD kdr Ballard, Brenda RN RN Ana Paula Dickey RN RN ap3 Sheri Barton Brittany bp1 Dibbern, Lauren, RN RN ld1 Jacqueline Meier RN RN ll3 Charity Canales RN RN vc1
[2022-05-25 10:51] VITALS: TEMP 98
[2022-05-25 10:54] VITALS: O2SAT 100
[2022-05-25 10:55] VITALS: BP 124/86
--- NOTE | 2022-05-25 18:40 | RAD REPORT ---
EXAM DESCRIPTION: RAD - Chest Single View - 05/25/2022 4:35 am CLINICAL HISTORY: The patient is 37 years old and is Male; CHEST PAIN TECHNIQUE: Single view of the chest. COMPARISON: March 14, 2022. FINDINGS: Limitations: Evaluation limited by body habitus. Lungs: Somewhat nodular airspace opacities in the bilateral lung bases, suspicious for pulmonary lesions. No pulmonary vascular congestion. Pleural space: No pleural effusion or pneumothorax. Heart: Unremarkable. No cardiomegaly. Mediastinum: Unremarkable. Bones/joints: No acute fracture. Upper abdomen: No free air in the visualized upper abdomen. IMPRESSION: Somewhat nodular airspace opacities in the bilateral lung bases, suspicious for pulmonar y lesions. CT chest follow-up recommended. Electronically signed by: Olive Juares MD 05/25/2022 6:00 AM BARREL DRILLER Due to temporary technical issues with the PACS/Fluency reporting system, reports are being signed by the in house radiologists without review as a courtesy to insure prompt reporting. The interpreting radiologist is fully responsible for the content of the report.
--- NOTE | 2022-05-26 19:14 | EKG ---
Test Date: 2022-05-25 Test Time: 03:54:06 Industrial Machine Assembler: BISI MEASUREMENT RESULTS: Intervals: Rate: 111 ME: 180 QRSD: 102 QT: 342 QTc: 465 [place]: P: 64 ME: 180 QRS: 64 T: 47 INTERPRETIVE STATEMENTS: Sinus tachycardia Possible Inferior infarct, age undetermined Abnormal ECG Compared to ECG 04/17/2021 06:35:22 Right-axis deviation no longer present Myocardial infarct finding still present Electronically Signed On 05-26-22 19:10:40 SHUTTLE FILLER by Yaya Frias
--- NOTE | 2022-05-28 15:37 | EKG ---
Test Date: 2022-05-25 Test Time: 08:25:15 Equine Pharmacology Technician: ALP MEASUREMENT RESULTS: Intervals: Rate: 102 MO: 196 QRSD: 104 QT: 370 QTc: 482 [place]: P: 56 MO: 196 QRS: 50 T: 35 INTERPRETIVE STATEMENTS: Sinus tachycardia Possible Left atrial enlargement Inferior infarct, age undetermined Abnormal ECG Compared to ECG 05/25/2022 03:54:06 No significant changes Electronically Signed On 05-28-22 15:32:08 BLENDING TECHNICIAN by Warner White
== END 2022-05-25 10:39 | disposition home or self-care (01) ==
LOC: ER 03:40
DX: C80.0 Disseminated malignant neoplasm, unspecified (principal); R09.1 Pleurisy; Z85.47 Personal history of malignant neoplasm of testis
CPT/HCPCS: 96361; 93005 ×2; 87040 ×2; 85025; 36415; 85379; 83605; 84484 ×2; 83690; 80053; 83880; 71275; 71045; 93970; 96375; 96372; 96374; 99285; Q9967; J1650; J7030; J2405

== ENCOUNTER 2022-08-08 00:13 | Emergency (ER) | payer OTHER ==
--- OUTSIDE RECORDS SUMMARY | 2022-08-08 00:32 | XMS REPORT | Continuity of Care Document ---
:1985 Author Organization [facility] t Address [address] [place] [address] Care Team Providers Name Role Phone Gabriella Giles Primary Care Physician TIM MORALEZ Attending Clinician Unavailable YUMI BRITO Attending Clinician Unavailable ADRIAN RUIZ Attending Clinician Unavailable FRANKO OLIVA Attending Clinician Unavailable EDWINA ROJAS Attending Clinician Unavailable Lazaro Garcia MD Attending Clinician Enid Butt MD Attending Clinician Darius CONNOR, Pacheco Davis Attending Clinician Edwina Rojas DO Attending Clinician Efrain Fontenot MD Attending Clinician Norm King MD Attending Clinician Unavailable SENTHIL BOYD Attending Clinician Unavailable Maurizio Mathew MD Attending Clinician Carol CONNOR, Beth Mary Attending Clinician [phone] Amberly Thomson MD Attending Clinician Jamel Pittman MD Attending Clinician Uriel Wagner MD Attending Clinician Senthil Boyd MD Attending Clinician [phone] ALISE MUÑOZ RP Attending Clinician Unavailable Zulay SIN, Per Attending Clinician Gabriella Giles Attending Clinician Sukhwinder CONNOR, Felipa Attending Clinician PER HEARN Attending Clinician Unavailable Mary CONNOR, Johnathan Attending Clinician Rocael YACHT MASTER, Sid Garvey Attending Clinician [phone] Virtual, Surgeon Attending Clinician Unavailable Ruth Miller MD Attending Clinician Gus YACHT MASTER, Marianne Alas Attending Clinician Unavailable Ministerio CONNOR, Marianne Attending Clinician Socorro CONNOR, Ami Attending Clinician EZEKIEL VOGEL Attending Clinician Unavailable Atilio LUCAS, Sarita Pascual Attending Clinician Unavailable VAL LANGE Attending Clinician Unavailable Ab Breaux DO Attending Clinician Val Lange MD Attending Clinician Ramo LUCAS, Elena Reyes Attending Clinician JOSELO BLANCO Attending Clinician Unavailable Rufus White MD Attending Clinician Joselo Blanco MD Attending Clinician GABRIELLA PATEL Attending Clinician Unavailable Doctor Unassigned, [place] Attending Clinician Unavailable Alise Muñoz MD, Rp Attending Clinician Eran Feliz MD Attending Clinician [facility] Attending Clinician Unavailable JOSE JUAN YA Attending Clinician Unavailable Terrell SHARMA, Fina S Attending Clinician Jose Juan Ya MD Attending Clinician Lab, Ang - Db Attending Clinician Unavailable Cori SIN, Janessa Michael Attending Clinician Adrian Ruiz MD Attending Clinician THEE DOWNING Attending Clinician Unavailable Thee Downing MD Attending Clinician Tim Moralez DO Attending Clinician Lani Callahan MD Attending Clinician Yee Neff CRNA Attending Clinician Only, Adc Test Attending Clinician Unavailable Maurizio Carpenter MD Attending Clinician MAURIZIO CARPENTER Attending Clinician Unavailable 2, [facility] Lab Attending Clinician Unavailable EWELINA WHITLEY Attending Clinician Unavailable HASMUKH GAONA Attending Clinician Unavailable [facility]ending Clinician Yun Oliver MD Attending Clinician YUN OLIVER Attending Clinician Unavailable Padmaja Bradley Attending Clinician Unavailable AB BREAUX Attending Clinician Unavailable William SHARMA, K Mirella Attending Clinician MIRNA ALICIA A Attending Clinician Unavailable Gramm HOME MORTGAGE DISCLOSURE ACT SPECIALIST, Alicia A Attending Clinician MEGAN PARKER Attending Clinician Unavailable García Soriano MD Attending Clinician Indu Gambino MD Attending Clinician Megan Parker MD Attending Clinician Po, [facility] Lab Main Attending Clinician Unavailable SALMA DE LA TORRE Attending Clinician Unavailable Salma De La Torre MD Attending Clinician 1, [facility] Lab Attending Clinician Unavailable TIM MORALEZ Admitting Clinician Unavailable EFRAIN FONTENOT Admitting Clinician Unavailable AMBERLY THOMSON Admitting Clinician Unavailable VAL LANGE Admitting Clinician Unavailable Val Lange MD Admitting Clinician JOSELO BLANCO Admitting Clinician Unavailable Joselo Blanco MD Admitting Clinician FINA TEJADA Admitting Clinician Unavailable Tim Moralez DO Admitting Clinician THEE DOWNING Admitting Clinician Unavailable Thee Downing MD Admitting Clinician EWELINA WHITLEY Admitting Clinician Unavailable YUN OLIVER Admitting Clinician Unavailable INDU GAMBINO Admitting Clinician Unavailable Payers Payer Name Policy Type Policy Number Effective Date Expiration Date S maryam [facility] [id number] 2017 PLUS 00:00:00 COMMUNITY PLAN [id number] [place] [facility] [id number] 2021 PLAN 00:00:00 Problems Condition Condition Condition Status Onset Resolution Last Treating Co mments Source Name Details Category Date Date Treatment Clinician Date Neutropeni Neutropeni Disease Active [facility] a, 1[facility]18 [facility] unspecifie unspecifie 00:00: Me dical d type d type 00 Center Malignant Malignant Disease Active 2021-[address] [facility] neoplasm neoplasm 2-27 [facility] of of 00:00: Medical testicle, testicle, 00 Cent er unspecifie unspecifie d d laterality laterality , , unspecifie unspecifie d whether d whether descended descended or or undescende undescende d d Malignancy Malignancy Disease Active 2021-[address] 2-20 [facility] 00:00: Medical 00 Center UTI UTI Disease Active 2021-[address] [facility] (urinary (urinary 2-20 [facility] tract tract 00:00: Medical infection) infection) 00 Ce nter Pyelonephr Pyelonephr Disease Active 2021-07 U nivers itis itis 2-05 ity of 00:00: [place] [address] Medical Branch Osteomyeli Osteomyeli Disease Active U nivers tis tis 9-07 ity of 00:00: [place] [address] Medical Branch 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 Added automatic ally from request for surgery [id number] History of History of Disease Active U nivers paraplegia paraplegia 1-13 it y of 00:00: [place] [address] Medical Branch Infection Infection Disease Active Uni vers due to due to 1-11 ity of ESBL-produ ESBL[place]produ [place]ing 00 Medical [place] Br anch a coli a coli Pressure Pressure Disease Active 2020-07 Unive rs ulcer ulcer 2-27 ity of 00:00: [place] [facility] Pressure Pressure Disease Active 2020-07 Unive rs ulcer ulcer 2-27 ity of 00:00: [place] [facility] Epididymit Epididymit Disease Active 2020-[address] is is 0-11 [facility] 00:00: [place] [address] Center Obesity Obesity Disease Active 2016-07 Univers 2-21 ity of 00:00: [place] [facility] Tobacco Tobacco Disease Active 2016-07 Univers abuse abuse 2-21 ity of 00:00: [place] [facility] HTN HTN Disease Active 2016-07 Univers (hypertens (hypertens 0-16 it y of ion) ion) 00:00: [place] [facility] Sepsis Sepsis Disease Active 2016-07 Univers 0-16 ity of 00:00: [place] [facility] Bacteremia Bacteremia Disease Active 2016-07 U nivers 0-16 ity of 00:00: [place] [facility] Ureteritis Ureteritis Disease Active U nivers 8-12 ity of 00:00: [place] [facility] Branch UTI UTI Disease Active Univers (urinary (urinary 6-22 ity of tract tract 00:00: [place] infection) infection) 00 Mi dical Branch Fever Fever Disease Active Univers 6-22 ity of 00:00: [place] [facility] Leukocytos Leukocytos Disease Active U nivers is is 6-22 ity of 00:00: [place] [facility] Branch Allergies, Adverse Reactions, Alerts Allergy Allergy Status Severity Reaction(s) Onset Inactive Treating Comm ents Source Name Type Date Date Clinician NO KNOWN Allergy Active [facility] NO KNOWN Drug Active Univers ALLERGIE Class ity of S [facility] Family History Family Member Diagnosis Comments Start Date Stop Date Source Natural father No Significant Univer [facility]ity [facility] [place] [facility] Natural mother No Significant Univer s[facility] [place] [facility] Social History Social Habit Start Date Stop Date Quantity Comments Source History of tobacco 2022-02-20 Cigarette Smoker University of use 00:00:00 [place] [facility] History SDOH University o f Alcohol Frequency [place] M ed[facility] History SDOH University o f Alcohol Std Drinks [place] [facility] History SDOH University o f Alcohol Binge [place] [facility] History SDOH [facility] History SDOH [facility] Medical Ce nter Lived Exposure to 2022-07-14 2022-07-[address] [facility] SARS-CoV-2 (event) 00:00:00 20:48:00 Medica l Center Alcohol intake 2022-07-24 2022-07-24 Ex-drinker [facility] 00:00:00 00:00:00 (finding) Medical Center History [facility] 2022-06-27 2022-06-[address] [facility] Transport Med 00:00:00 00:00:[address] History [facility] 2022-06-27 2022-06-[address] [facility] Housing Unable to 00:00:00 00:00:00 Medical Center Pay History [facility] 2022-06-27 2022-06-[address] [facility] Housing Homeless 00:00:00 00:00:00 Medical Center Last Year Alcohol Comment 2022-04-19 2022-04-19 social Universit y of 00:00:00 00:00:00 [facility] Cigarettes smoked 2022-04-19 2022-04-19 Univers ity of current (pack per 00:00:00 00:00:00 [facility] ) - Reported Branch Cigarette 2022-04-19 2022-04-19 University of pack-years 00:00:00 00:00:00 [facility] Education 2022-04-19 2022-04-19 14 University of 00:00:00 00:00:00 [facility] Tobacco Comment 2022-03-14 2022-03-14 3 cigarettes Univers ity of 00:00:00 00:00:00 daily. [facility] Tobacco use and 2021-04-17 2021-04-[address] [facility] [address] [facility] exposure 00:00:00 00:00:00 Medical Center Sex Assigned At [address] [facility] 00:00:00 00:00:00 Medical Center Smoking Status Start Date Stop Date Source Smokes tobacco daily 2022-04-19 00:00:00 Univers ity of [facility] Never smoker [facility] Center Medications Ordered Filled Start Stop Current Ordering Indication Dosage Frequency Signature Comments Components Source Medication Medication Date Date Medication? Clinician (SIG) Name Name doxycycline 2022- Yes 100mg Take [address] (MONODOX) 07-27 capsule [facility] 100 MG 00:00: 23:59 (100 mg Medical capsule 00 :00 total) by Center mouth every 12 (twelve) hours for 60 days. doxycycline 2022- Yes 100mg Take [address] (MONODOX) 07-27 capsule [facility] 100 MG 00:00: 23:59 (100 mg Medical capsule 00 :00 total) by Center mouth every 12 (twelve) hours for 60 days. doxycycline 2022- Yes 100mg Take [address] (MONODOX) 07-27 capsule [facility] 100 MG 00:00: 23:59 (100 mg Medical capsule 00 :00 total) by Center mouth every 12 (twelve) hours for 60 days. allopurinoL 2023- Yes 100mg Q.5D Take [address] (ZYLOPRIM) 07-19 tablet [facility] 100 MG 00:00: 23:59 (100 mg Medical tablet 00 :00 total) by Center mouth 2 (two) times daily. allopurinoL 2023- Yes 100mg Q.5D Take [address] (ZYLOPRIM) 07-19 tablet [facility] 100 MG 00:00: 23:59 (100 mg Medical tablet 00 :00 total) by Center mouth 2 (two) times daily. allopurinoL 2023- Yes 100mg Q.5D Take [address] (ZYLOPRIM) 07-19 tablet [facility] 100 MG 00:00: 23:59 (100 mg Medical tablet 00 :00 total) by Center mouth 2 (two) times daily. lactobacill 2022- Yes 1{capsu QD Take [address] [facility] us 07-19 le} capsule by [facility]ukes rhamnosus, 00:00: 23:59 mouth Medic al GG, 00 :00 daily for Center ([facility] 30 days. ) 10 billion cell capsule doxycycline 2022- Yes 100mg Q.5D Take [address] (MONODOX) 07-19 capsule [facility] 100 MG 00:00: 23:59 (100 mg Medical capsule 00 :00 total) by Center mouth 2 (two) times daily for 30 days. lactobacill 2022- Yes 1{capsu QD Take [address] [facility] [address] us 07-19 le} capsule by Lu[place]ona rhamnosus, 00:00: 23:59 mouth Medic al GG, 00 :00 daily for Center ([facility] 30 days. ) 10 billion cell capsule doxycycline 2022- Yes 100mg Q.5D Take [address] (MONODOX) 07-19 capsule [facility] 100 MG 00:00: 23:59 (100 mg Medical capsule 00 :00 total) by Center mouth 2 (two) times daily for 30 days. lactobacill 2022- Yes 1{capsu QD Take [address] [facility] [address] us 07-19 le} capsule by Lukeyona rhamnosus, 00:00: 23:59 mouth Medic al GG, 00 :00 daily for Center ([facility] 30 days. ) 10 billion cell capsule doxycycline 2022- Yes 100mg Q.5D Take [address] (MONODOX) 07-19 capsule [facility] 100 MG 00:00: 23:59 (100 mg Medical capsule 00 :00 total) by Center mouth 2 (two) times daily for 30 days. loperamide 2022- No 2mg Take [address] [facility] [address] (IMODIUM) 2 07-18 capsule (2 L ukes mg capsule 00:00: 23:59 mg total) M edical 00 :00 by mouth 4 Center (four) times daily as needed for Diarrhea for up to 10 days. HYDROcodone 2022- No 1{tbl} Take [address] -acetaminop 07-18 tablet by Nora bueno (NORCO 00:00: 23:59 mouth Medic al 10-325) 00 :00 every 6 Center 10-325 mg (six) per tablet hours as needed for Pain for up to 10 days. Max Daily Amount: 4 tablets loperamide 2022- No 2mg Take [address] [facility] (IMODIUM) 2 07-18 capsule (2 L ukes mg capsule 00:00: 23:59 mg total) M edical 00 :00 by mouth 4 Center (four) times daily as needed for Diarrhea for up to 10 days. HYDROcodone 2022- No 1{tbl} Take [address] -acetaminop 07-18 tablet by Nora bueno (NORCO 00:00: 23:59 mouth Medic al 10-325) 00 :00 every 6 Center 10-325 mg (six) per tablet hours as needed for Pain for up to 10 days. Max Daily Amount: 4 tablets loperamide 2022- No 2mg Take [address] [facility] (IMODIUM) 2 07-18 capsule (2 L ukes mg capsule 00:00: 23:59 mg total) M edical 00 :00 by mouth 4 Center (four) times daily as needed for Diarrhea for up to 10 days. HYDROcodone 2022- No 1{tbl} Take [address] -acetaminop 07-18 tablet by Nora bueno (NORCO 00:00: 23:59 mouth Medic al 10-325) 00 :00 every 6 Center 10-325 mg (six) per tablet hours as needed for Pain for up to 10 days. Max Daily Amount: 4 tablets promethazin 2022-2022- No 12.5mg Take [address] e 07-18 tablet [facility] (PHENERGAN) 00:00: 00:00 (12.5 mg M edical 12.5 MG 00 :00 total) by Center tablet mouth every 6 (six) hours as needed for Nausea for up to 8 days. promethazin 2022-0 2022- No 12.5mg Take [address] e 07-18 tablet [facility] (PHENERGAN) 00:00: 00:00 (12.5 mg M edical 12.5 MG 00 :00 total) by Center tablet mouth every 6 (six) hours as needed for Nausea for up to 8 days. promethazin 2022-0 2022- No 12.5mg Take [address] e 07-18 tablet [facility] (PHENERGAN) 00:00: 00:00 (12.5 mg M edical 12.5 MG 00 :00 total) by Center tablet mouth every 6 (six) hours as needed for Nausea for up to 8 days. doxycycline 2022-2022- No 100mg Q.5D Take [address] (MONODOX) 07-18 capsule [facility] 100 MG 00:00: 00:00 (100 mg Medical capsule 00 :00 total) by Center mouth 2 (two) times daily for 30 days. allopurinoL 2022- No 100mg Q.5D Take [address] (ZYLOPRIM) 07-18 tablet [facility] 100 MG 00:00: 00:00 (100 mg Medical tablet 00 :00 total) by Center mouth 2 (two) times daily. doxycycline 2022- No 100mg Q.5D Take [address] (MONODOX) 07-18 capsule [facility] 100 MG 00:00: 00:00 (100 mg Medical capsule 00 :00 total) by Center mouth 2 (two) times daily for 30 days. allopurinoL 2022- No 100mg Q.5D Take [address] (ZYLOPRIM) 07-18 tablet [facility] 100 MG 00:00: 00:00 (100 mg Medical tablet 00 :00 total) by Center mouth 2 (two) times daily. doxycycline 2022- No 100mg Q.5D Take [address] (MONODOX) 07-18 capsule [facility] 100 MG 00:00: 00:00 (100 mg Medical capsule 00 :00 total) by Center mouth 2 (two) times daily for 30 days. allopurinoL 2022- No 100mg Q.5D Take [address] (ZYLOPRIM) 07-18 tablet [facility] 100 MG 00:00: 00:00 (100 mg Medical tablet 00 :00 total) by Center mouth 2 (two) times daily. cefTRIAXone 2021-07- Yes 1g 1 g, IV Un gadiel (ROCEPHIN) 08-27 12 Piggyback, it y of 1 g in NaCl 05:00: 04:59 Q24H ABX, [place] 0.9% (NS) 00 :00 5 doses, Medica l 50 mL First dose Branch MINI-BAG on Sat06/25/22 at 2300, Last dose on Sat06/29/22 at 2300, Administer over 30 Minutes, 50 mL
Reas on for Anti-Infec tive: Empiric Therapy for Suspected Infection< br>Empiric Therapy Site: Urine
D uration of therapy: 72 hours enoxaparin 2021-07 Yes 40mg 40 mg, Unive rs (LOVENOX) 08-26 Subcutaneo ity of injection 15:00: [place], [place]ILY, [place] 40 mg 00 First dose Medical on Sat06/25/22 at 0900, Until Discontinu ed, Routine NaCl 0.9% 2021-07 Yes 1000mL at 125 Univ ers (NS) IV 2-19 mL/hr, IV ity of infusion 07:45: Infusion, [place] 1,000 mL 00 CONTINUOUS Medic al , Starting Branch on Sat06/25/22 at 0145, Until Discontinu ed, Routine morpHINE (2 2021-07 Yes 2mg 2 mg, Slow Univers mg/mL) 08-26 IV Push, ity of injection 2 06:33: Q4HPRN, [place] mg 12 Starting Medical on Sat06/25/22 at 0033, Until Discontinu ed, Routine, Pain (scale 7-10) ondansetron 2021-07 Yes 4mg 4 mg, Slow Univers (ZOFRAN 08-26 IV Push, ity of (PF)) 06:31: Q6HPRN, [place] injection 4 39 Starting Medi jd mg on Sat06/25/22 at 0031, Until Discontinu ed, Routine, Nausea and Vomiting (N/V) traMADoL 2021-07- Yes 50mg 50 mg, Univer s (ULTRAM) 08-26 Oral, ity of tablet 50 06:31: 06:30 Q8HPRN, [place] mg 32 :32 Starting Medical on Sat06/25/22 at 0031, Until Sat06/27/22 at 0030, Routine, Pain (scale 4-6) acetaminoph 2021-07 Yes 650mg 650 mg, Un gadiel en 08-26 Oral, ity of (TYLENOL) 06:31: Q6Dola, [place] tablet 650 28 Starting Medic al mg on Sat06/25/22 at 0031, Until Discontinu ed, Routine, Pain (scale 1-3) busPIRone 2021-07 Yes 5mg 5 mg, Univers (BUSPAR) 08-26 Oral, ity of tablet 5 mg 06:29: BIDPRN, [place] 37 Starting Medical on Sat06/25/22 at 0029, Until Discontinu ed, Routine, anxiety cefTRIAXone 2021-07- No 1000mg 1,000 mg, Univers (ROCEPHIN) 08-26 Slow IV ity o f injection 05:15: 16:24 Push, Q24H [place] 1,000 mg 00 :05 ABX, First Medic al dose on [facility] 06/24/22 at 2315, Until Discontinu ed, ISABELA<br&gt ;Reason for Anti-Infec tive: Empiric Therapy for Suspected Infection< br>Empiric Therapy Site: Urine
D uration of therapy: 72 hours NaCl 0.9% 2021-07 No 1000mL at 999 Uni vers (NS) bolus 08-26 mL/hr, ity of infusion 05:15: 06:15 1,000 mL, [place] 1,000 mL 00 :00 IV [facility], [facility] dose, On [place] 06/24/22 at 2315, STAT ondansetron 2021-07 No 4mg 4 mg, Slow Univers (ZOFRAN 08-26 IV Push, ity of (PF)) 04:45: 04:32 ONCE, 1 [place] injection 4 00 :00 dose, On Medi jd mg [facility] 06/24/22 at 2245, ISABELA morpHINE (4 2021-07 No 4mg 4 mg, Slow Univers mg/mL) 08-26 IV Push, ity of injection 4 04:45: 04:32 ONCE, 1 [place] mg 00 :00 dose, On [facility] 06/24/22 at 2245, STAT iopamidol 2021-07- No [id number] 140mL 140 mL, Univers (ISOVUE 08-26 Intravenou ity o f 370-500 mL) 03:45: 03:45 s, ONCE, 1 [place] injection 00 :00 dose, On Medica l 140 mL [facility] 06/24/22 at 2145, Routine ondansetron 2021-07 No 4mg 4 mg, Slow Univers (ZOFRAN 08-26 IV Push, ity of (PF)) 03:00: 02:46 ONCE, 1 [place] injection 4 00 :00 dose, On Medi jd mg [facility] 06/24/22 at 2100, Routine acetaminoph 2021-07- No 650mg 650 mg, U nivers en -25 06- Oral, ity of (TYLENOL) 02:30: 02:54 ONCE, 1 [place] tablet 650 00 :00 dose, On Medic al mg [place] [facility] 06/24/22 at 2030, ISABELA amoxicillin 2021-07- No 1{tbl} Q.5D Take [address] -clavulanat 2-19 07-18 tablet by Nora kes e 00:00: 00:00 mouth 2 Medical (AUGMENTIN) 00 :00 (two) Center 875-125 mg times per tablet daily. amoxicillin 2021-07- No 1{tbl} Q.5D Take [address] -clavulanat 2-26 07- tablet by Nora kes e 00:00: 00:00 mouth 2 Medical (AUGMENTIN) 00 :00 (two) Center 875-125 mg times per tablet daily. amoxicillin 2021-07- No 1{tbl} Q.5D Take [address] -clavulanat 2-07-18 tablet by Nora kes e 00:00: 00:00 mouth 2 Medical (AUGMENTIN) 00 :00 (two) Center 875-125 mg times per tablet daily. amoxicillin 2021-07- Yes [id number] 1{tbl} Take 1 Univers -clavulanat 2-19 -27 tablet by it y of e 00:00: 05:59 mouth in [place] (AUGMENTIN) 00 :00 the Medical 875-125 mg morning Branch per tablet and 1 tablet in the evening. Do all this for 7 days. amoxicillin 2021-07- Yes [id number] 1{tbl} Take 1 Univers -clavulanat 2-19 12-27 tablet by it y of e 00:00: 05:59 mouth in [place] (AUGMENTIN) 00 :00 the Medical 875-125 mg morning Branch per tablet and 1 tablet in the evening. Do all this for 7 days. amoxicillin 2021-07- No 1{tbl} Q.5D Take [address] -clavulanat 2-19 - tablet by Nora kes e 00:00: 23:59 mouth 2 Medical (AUGMENTIN) 00 :00 (two) Center 875-125 mg times per tablet daily. amoxicillin 2021-07- No 1{tbl} Q.5D Take [address] -clavulanat -07-02 tablet by Nora rand e 00:00: 23:59 mouth 2 Medical (AUGMENTIN) 00 :00 (two) Center 875-125 mg times per tablet daily. amoxicillin 2021-07- No 1{tbl} Q.5D Take [address] -clavulanat -07-02 tablet by Nora mcintyres e 00:00: 23:59 mouth 2 Medical (AUGMENTIN) 00 :00 (two) Center 875-125 mg times per tablet daily. doxycycline 2021-07- Yes [id number] 100mg Take 1 Univers hyclate 100 08-25 capsule by i ty of mg capsule 00:00: 05:59 mouth in [place] 00 :00 the Medical morning Branch and 1 capsule in the evening. Do all this for 10 days. morpHINE (4 2021-07- Yes 2mg 2 mg, Slow Univers mg/mL) 08-15 IV Push, ity of injection 2 22:20: 21:56 Q4HPRN, [place] mg 48 :55 Starting Medical on Sat Branch 06/14/22 at 1620, Until Sat06/15/22 at 1556, Routine, Pain (scale 7-10) levoFLOXaci 2021-07- Yes [id number] 750mg Take 1 Univers n 750 mg 08-15 tablet by ity o f tablet 00:00: 05:59 mouth [place] 00 :00 every 24 Medical ([facility] Branch ur) hours for 5 days. levoFLOXaci 2021-07- Yes [id number] 750mg Take 1 Univers n 750 mg 08-15- tablet by ity o f tablet 00:00: 05:59 mouth [place] 00 :00 every 24 Medical ([facility]- Branch ur) hours for 5 days. morpHINE (4 2021-07- No 4mg 4 mg, Slow Univers mg/mL) 2-01 16- IV Push, ity of injection 4 07:41: 07:40 Q4HPRN, [place] mg 51 :51 Starting Medical on Sat Branch 06/13/22 at 0141, Until Gita 06/14/22 at 0140, Routine, Pain (scale 7-10) cefTRIAXone 2021-07- Yes 1000mg 1,000 mg, Univers (ROCEPHIN) 08-1413 IV ity of 1,000 mg in 05:00: 04:59 PiggyHansen, [place] NaCl 0.9% 00 :00 Q24H ABX, Medic al (NS) 50 mL 6 doses, Branc h MINI-BAG First dose on Sat06/12/22 at 2300, Last dose on Sat06/17/22 at 2300, Administer over 30 Minutes, 50 mL
Reas on for Anti-Infec tive: Documented Infection< br>Documen brook Infection Site: Urine
D uration of Therapy: 7 days enoxaparin 2021-07 Yes 40mg 40 mg, Unive rs (LOVENOX) 2 Subcutaneo ity of injection 23:00: [place], DAILY, [place] 40 mg 00 First dose Medical on [facility] 06/12/22 at 1700, Until Discontinu ed, Routine NaCl 0.9% 2021-07- No 1000mL at 125 Uni vers (NS) IV 08-13-07 mL/hr, IV ity of infusion 07:15: 20:01 Infusion, [place] 1,000 mL 00 :29 CONTINUOUS Medic al , Starting Branch on Sat06/12/22 at 0115, Until Sat06/13/22 at 1401, Routine ondansetron 2021-07 Yes 4mg 4 mg, Slow Univers (ZOFRAN 08-13 IV Push, ity of (PF)) 07:09: Q6HPRN, [place] injection 4 06 Starting Medi jd mg on [facility] 06/12/22 at 0109, Until Discontinu ed, Routine, Nausea and Vomiting (N/V) morpHINE (4 2021-07- No 4mg 4 mg, Slow Univers mg/mL) 2 12-07 IV Push, ity of injection 4 07:09: 07:08 Q4HPRN, [place] mg 03 :03 Starting Medical on Sat [place] 06/12/22 at 0109, Until Sat06/13/22 at 0108, Routine, Pain (scale 7-10) HYDROcodone 2021-07- No 1{tbl} 1 tablet, Univers -acetaminop 08-13 12-08 Oral, ity of hen (NORCO 07:09: 07:08 Q6HPRN, [place] 5) 5-325 mg 01 :01 Starting Medi jd tablet 1 on Sat [place] tablet 06/12/22 at 0109, Until Gita 06/14/22 at 0108, Routine, Pain (scale 4-6) acetaminoph 2021-07 Yes 650mg 650 mg, Un gadiel en 2-06 Oral, ity of (TYLENOL) 07:08: Q6HPRN, [place] tablet 650 55 Starting Medic al mg on Sat Branch 06/12/22 at 0108, Until Discontinu ed, Routine, Pain (scale 1-3), Temp > 38.5 C busPIRone 2021-07 Yes 5mg 5 mg, Univers (BUSPAR) 206 Oral, ity of tablet 5 mg 07:06: BIDPRN, [place] 03 Starting Medical on Sat Branch 06/12/22 at 0106, Until Discontinu ed, Routine, anxiety NaCl 0.9% 2021-07 No 1000mL at 999 Uni vers (NS) bolus 08-1306 mL/hr, ity of infusion 07:00: 07:11 1,000 mL, [place] 1,000 mL 00 :00 IV Medical Infusion, Branch ONCE, 1 dose, On Sat06/12/22 at 0100, STAT FENTanyl PF 2021-07 No 50ug 50 mcg, Un gadiel (SUBLIMAZE 08-13 Slow IV ity o f (PF)) 07:00: 06:04 Push, [place] injection 00 :00 ONCE, 1 Medical 50 mcg dose, On Branch Sat06/12/22 at 0100, Routine NaCl 0.9% 2021-07 No 1000mL at 999 Uni vers (NS) bolus 2 12-06 mL/hr, ity of infusion 04:45: 06:10 1,000 mL, Tamir as 1,000 mL 00 :00 IV Medical Infusion, Branch ONCE, 1 dose, On 06/11/22 at 2245, STAT cefTRIAXone 2021-07- No 1000mg 1,000 mg, [facility] (ROCEPHIN) 2- 12-06 IV ity of 1,000 mg in 04:45: 05:19 Piggyback, [place] NaCl 0.9% 00 :00 ONCE, 1 Medical (NS) 50 mL dose, On Branc h MINI-BAG 06/11/22 at 2245, Administer over 30 Minutes, 50 mL
Reas on for Anti-Infec tive: Documented Infection< br>Documen brook Infection Site: Urine<br&g t;Duration of Therapy: 7 days busPIRone 2021-07 Yes 5mg Q.5D Take [address] [facility] (BUSPAR) 5 1-30 by mouth 2 Jennifer es MG tablet 00:00: (two) Medical 00 times Center daily. diclofenac 2021-07 Yes [id number] Take 1 tab [facility] 75 mg EC 1-30 po daily ity of tablet 00:00: as needed [place] 00 for pain Medical not Branch relieved by tylenol. Take with food. busPIRone 2021-07 Yes [id number] 5mg Take 1 [facility] mg tablet 1-30 tablet by ity o f 00:00: mouth 2 [place] 00 (two) Medical times Branch daily as needed (anxiety). diclofenac 2021-07 Yes [id number] Take 1 tab [facility] 75 mg EC 1-30 po daily ity of tablet 00:00: as needed [place] 00 for pain Medical not Branch relieved by tylenol. Take with food. busPIRone 2021-07 Yes [id number] 5mg Take 1 [facility] mg tablet 1-30 tablet by ity o f 00:00: mouth 2 [place] 00 (two) Medical times Branch daily as needed (anxiety). diclofenac 2021-07 Yes [id number] Take 1 tab [facility] 75 mg EC 1-30 po daily ity of tablet 00:00: as needed [place] 00 for pain Medical not Branch relieved by tylenol. Take with food. busPIRone 2021-07 Yes [id number] 5mg Take 1 [facility] mg tablet 1-30 tablet by ity o f 00:00: mouth 2 [place] 00 (two) Medical times Branch daily as needed (anxiety). diclofenac 2021-07 Yes [id number] Take 1 tab [facility] 75 mg EC 1-30 po daily ity of tablet 00:00: as needed [place] 00 for pain Medical not Branch relieved by tylenol. Take with food. busPIRone 2021-07 Yes [id number] 5mg Take 1 [facility] mg tablet 1-30 tablet by ity o f 00:00: mouth 2 [place] 00 (two) Medical times Branch daily as needed (anxiety). diclofenac 2021-07 Yes [id number] Take 1 tab [facility] 75 mg EC 1-30 po daily ity of tablet 00:00: as needed [place] 00 for pain Medical not Branch relieved by tylenol. Take with food. busPIRone 2021-07 Yes [id number] 5mg Take 1 [facility] mg tablet 1-30 tablet by ity o f 00:00: mouth 2 [place] 00 (two) Medical times Branch daily as needed (anxiety). diclofenac 2021-07 Yes [id number] Take 1 tab [facility] 75 mg EC 1-30 po daily ity of tablet 00:00: as needed [place] 00 for pain Medical not Branch relieved by tylenol. Take with food. busPIRone 2021-07 Yes [id number] 5mg Take 1 [facility] mg tablet 1-30 tablet by ity o f 00:00: mouth 2 [place] 00 (two) Medical times Branch daily as needed (anxiety). diclofenac 2021-07 Yes [id number] Take 1 tab [facility] 75 mg EC 1-30 po daily ity of tablet 00:00: as needed [place] 00 for pain Medical not Branch relieved by tylenol. Take with food. busPIRone 2021-07 Yes [id number] 5mg Take 1 [facility] mg tablet 1-30 tablet by ity o f 00:00: mouth 2 [place] 00 (two) Medical times Branch daily as needed (anxiety). diclofenac 2021-07 Yes [id number] Take 1 tab [facility] 75 mg EC 1-30 po daily ity of tablet 00:00: as needed [place] 00 for pain Medical not Branch relieved by tylenol. Take with food. busPIRone 2021-07 Yes [id number] 5mg Take 1 [facility] mg tablet 1-30 tablet by ity o f 00:00: mouth 2 [place] 00 (two) Medical times Branch daily as needed (anxiety). diclofenac 2021-07 Yes [id number] Take 1 tab [facility] 75 mg EC 1-30 po daily ity of tablet 00:00: as needed [place] 00 for pain Medical not Branch relieved by tylenol. Take with food. busPIRone 2021-07 Yes [id number] 5mg Take 1 [facility] mg tablet 1-30 tablet by ity o f 00:00: mouth 2 [place] 00 (two) Medical times Branch daily as needed (anxiety). diclofenac 2021-07 Yes [id number] Take 1 tab [facility] 75 mg EC 1-30 po daily ity of tablet 00:00: as needed [place] 00 for pain Medical not Branch relieved by tylenol. Take with food. busPIRone 2021-07 Yes [id number] 5mg Take 1 [facility] mg tablet 1-30 tablet by ity o f 00:00: mouth 2 [place] 00 (two) Medical times Branch daily as needed (anxiety). diclofenac 2021-07 Yes [id number] Take 1 tab [facility] 75 mg EC 1-30 po daily ity of tablet 00:00: as needed [place] 00 for pain Medical not Branch relieved by tylenol. Take with food. busPIRone 2021-07 Yes [id number] 5mg Take 1 [facility] mg tablet 1-30 tablet by ity o f 00:00: mouth 2 [place] 00 (two) Medical times Branch daily as needed (anxiety). diclofenac 2021-07 Yes [id number] Take 1 tab [facility] 75 mg EC 1-30 po daily ity of tablet 00:00: as needed [place] 00 for pain Medical not Branch relieved by tylenol. Take with food. busPIRone 2021-07 Yes [id number] 5mg Take 1 [facility] mg tablet 1-30 tablet by ity o f 00:00: mouth 2 [place] 00 (two) Medical times Branch daily as needed (anxiety). diclofenac 2021-07 Yes [id number] Take 1 tab [facility] 75 mg EC 1-30 po daily ity of tablet 00:00: as needed [place] 00 for pain Medical not Branch relieved by tylenol. Take with food. busPIRone 2021-07 Yes [id number] 5mg Take 1 [facility] mg tablet 1-30 tablet by ity o f 00:00: mouth 2 [place] 00 (two) Medical times Branch daily as needed (anxiety). diclofenac 2021-07 Yes [id number] Take 1 tab [facility] 75 mg EC 1-30 po daily ity of tablet 00:00: as needed [place] 00 for pain Medical not Branch relieved by tylenol. Take with food. busPIRone 2021-07 Yes [id number] 5mg Take 1 [facility] mg tablet 1-30 tablet by ity o f 00:00: mouth 2 00 (two) Medical times Branch daily as needed (anxiety). diclofenac 2021-07 Yes [id number] Take 1 tab [facility] 75 mg EC 1-30 po daily ity of tablet 00:00: as needed [place] for pain Medical not Branch relieved by tylenol. Take with food. busPIRone 5 2021-07 Yes [id number] 5mg Take 1 [facility] mg tablet 1-30 tablet by ity o f 00:00: mouth 2 (two) Medical times Branch daily as needed (anxiety). busPIRone 2021-07 Yes 5mg Q.5D Take [address] [facility] (BUSPAR) 5 1-30 by mouth 2 [place] es MG tablet 00:00: (two) Medical 00 times Center daily. busPIRone 2021-07 Yes 5mg Q.5D Take [address] [facility] (BUSPAR) 5 1-30 by mouth 2 [place] es MG tablet 00:00: (two) Medical 00 times Center daily. busPIRone 2021-07 Yes 5mg Q.5D Take [address] [facility] (BUSPAR) 5 1-30 by mouth 2 [place] es MG tablet 00:00: ([facility]) Medical 00 times Center daily. busPIRone 2021-07 Yes 5mg Q.5D Take [address] [facility] (BUSPAR) 5 1-30 by mouth 2 [place] es MG tablet 00:00: (two) Medical 00 times Center daily. busPIRone 2021-07 Yes 5mg Q.5D Take [address] [facility] (BUSPAR) 5 1-30 by mouth 2 [place] es MG tablet 00:00: (two) Medical 00 times Center daily. famotidine 2021-07 Yes TAKE 1 Unive rs 20 mg 1-18 TABLET BY ity of tablet 00:00: MOUTH [place] 00 EVERY 12 Medical HOURS FOR Branch 14 DAYS diclofenac 2021-07 Yes 75mg Take 75 mg U nivers 75 mg EC 1-18 by mouth ity of tablet 00:00: in the [place] 00 morning Medical and 75 mg Branch in the evening. famotidine 2021-07 Yes TAKE 1 Unive rs 20 mg 1-18 TABLET BY ity of tablet 00:00: MOUTH [place] [address] EVERY 12 Medical HOURS FOR Branch 14 DAYS diclofenac 2021-07 Yes 75mg Take 75 mg U nivers 75 mg EC 1-18 by mouth ity of tablet 00:00: in the [place] 00 morning Medical and 75 mg Branch in the evening. famotidine 2021-07 Yes TAKE 1 Unive rs 20 mg 1-18 TABLET BY ity of tablet 00:00: MOUTH [place] 00 EVERY 12 Medical HOURS FOR Branch 14 DAYS famotidine 2021-07 Yes TAKE 1 Unive rs 20 mg 1-18 TABLET BY ity of tablet 00:00: MOUTH [place] 00 EVERY 12 Medical HOURS FOR Branch 14 DAYS famotidine 2021-07 Yes TAKE 1 Unive rs 20 mg 1-18 TABLET BY ity of tablet 00:00: MOUTH [place] 00 EVERY 12 Medical HOURS FOR Branch 14 DAYS famotidine 2021-07 Yes TAKE 1 Unive rs 20 mg 1-18 TABLET BY ity of tablet 00:00: MOUTH [place] 00 EVERY 12 Medical HOURS FOR Branch 14 DAYS famotidine 2021-07- No TAKE 1 Univ ers 20 mg 1-18 12-06 TABLET BY ity of tablet 00:00: 00:00 MOUTH [place] 00 :00 EVERY 12 Medical HOURS FOR Branch 14 DAYS diclofenac 2021-07 No 75mg Take 75 mg [facility] 75 mg EC 1-18 11-30 by mouth ity of tablet 00:00: 00:00 in the [place] 00 :00 morning Medical and 75 mg Branch in the evening. diclofenac 2021-07- No 75mg Take 75 mg [facility] 75 mg EC 1-18 11-30 by mouth ity of tablet 00:00: 00:00 in the [place] 00 :00 morning Medical and 75 mg Branch in the evening. NaCl 0.9% 2021-07- No 30mL/kg at 999 Un gadiel (NS) bolus 0-28 10-28 mL/hr, ity of infusion 08:45: 09:50 3,498 mL [place] 3,498 mL 00 :00 (30 mL/kg Medica l ?116.6 Branch kg), IV Infusion, ONCE, 1 dose, On Sat05/04/22 at 0345, STAT iopamidol 2021-07- No [id number] 100mL 100 mL, Univers (ISOVUE 0-28 10-28 Intravenou ity o f 370-500 mL) 08:15: 08:15 s, ONCE, 1 [place] injection 00 :00 dose, On Medica l 100 mL Fri Branch 05/04/22 at 0315, Routine cefTRIAXone 2021-07- No 1000mg 1,000 mg, Univers (ROCEPHIN) 0-04 05- IV ity of 1,000 mg in 07:45: 08:29 Piggyback, [place] NaCl 0.9% 00 :00 ONCE, 1 Medical (NS) 50 mL dose, On Branc h MINI-BAG 05/04/22 at 0245, Administer over 30 Minutes, 50 mL
Reas on for Anti-Infec tive: Documented Infection< br>Documen brook Infection Site: Urine<br&g t;Duration of Therapy: Other (see Comments) ondansetron 2021-07 No 4mg 4 mg, Slow [facility] (ZOFRAN 005-04 IV Push, ity of (PF)) 06:45: 07:01 ONCE, 1 [place] injection 4 00 :00 dose, On Medi jd mg Fri Branch 05/04/22 at 0145, ISABELA morpHINE (4 2021-07 No 4mg 4 mg, Slow [facility] mg/mL) 005-04 IV Push, ity of injection 4 06:45: 07:01 ONCE, 1 [place] mg 00 :00 dose, On Medical Fri Branch 05/04/22 at 0145, STAT traMADoL 50 2021-07 Yes [id number] 50mg Take 1 Univ ers mg tablet 0-28 tablet by ity o f 00:00: mouth [place] 00 every 6 Medical (six) Branch hours as needed (pain). Indication s: acute pain ondansetron 2021-07 Yes [id number] 1 or 2 Univers 4 mg tablet 0-28 tablets ity o f 00:00: every 6 [place] 00 hours as Medical needed for Branch nausea traMADoL 50 2021-07 Yes [id number] 50mg Take 1 Univ ers mg tablet 0-28 tablet by ity o f 00:00: mouth [place] 00 every 6 Medical (six) Branch hours as needed (pain). Indication s: acute pain ondansetron 2021-07 Yes [id number] 1 or 2 Univers 4 mg tablet 0-28 tablets ity o f 00:00: every 6 [place] 00 hours as Medical needed for Branch nausea traMADoL 50 2021-07 Yes [id number] 50mg Take 1 Univ ers mg tablet 0-28 tablet by ity o f 00:00: mouth [place] 00 every 6 Medical (six) Branch hours as needed (pain). Indication s: acute pain ondansetron 2021-07 Yes [id number] 1 or 2 Univers 4 mg tablet 0-28 tablets ity o f 00:00: every 6 [place] 00 hours as Medical needed for Branch nausea traMADoL 50 2021-07 Yes [id number] 50mg Take 1 Univ ers mg tablet 0-28 tablet by ity o f 00:00: mouth [place] 00 every 6 Medical (six) Branch hours as needed (pain). Indication s: acute pain ondansetron 2021-07 Yes [id number] 1 or 2 Univers 4 mg tablet 0-28 tablets ity o f 00:00: every 6 [place] 00 hours as Medical needed for Branch nausea traMADoL 50 2021-07 Yes [id number] 50mg Take 1 Univ ers mg tablet 0-28 tablet by ity o f 00:00: mouth [place] 00 every 6 Medical (six) Branch hours as needed (pain). Indication s: acute pain ondansetron 2021-07 Yes [id number] 1 or 2 Univers 4 mg tablet 0-28 tablets ity o f 00:00: every 6 [place] 00 hours as Medical needed for Branch nausea traMADoL 50 2021-07 Yes [id number] 50mg Take 1 Univ ers mg tablet 0-28 tablet by ity o f 00:00: mouth [place] 00 every 6 Medical (six) Branch hours as needed (pain). Indication s: acute pain ondansetron 2021-07 Yes [id number] 1 or 2 Univers 4 mg tablet 0-28 tablets ity o f 00:00: every 6 [place] 00 hours as Medical needed for Branch nausea traMADoL 50 2021-07 Yes [id number] 50mg Take 1 Univ ers mg tablet 0-28 tablet by ity o f 00:00: mouth [place] 00 every 6 Medical (six) Branch hours as needed (pain). Indication s: acute pain ondansetron 2021-07 Yes [id number] 1 or 2 Univers 4 mg tablet 0-28 tablets ity o f 00:00: every 6 [place] 00 hours as Medical needed for Branch nausea traMADoL 50 2021-07 Yes [id number] 50mg Take 1 Univ ers mg tablet 0-28 tablet by ity o f 00:00: mouth [place] 00 every 6 Medical (six) Branch hours as needed (pain). Indication s: acute pain ondansetron 2021-07 Yes [id number] 1 or 2 Univers 4 mg tablet 0-28 tablets ity o f 00:00: every 6 [place] 00 hours as Medical needed for Branch nausea traMADoL 50 2021-07 Yes [id number] 50mg Take 1 Univ ers mg tablet 0-28 tablet by ity o f 00:00: mouth [place] 00 every 6 Medical (six) Branch hours as needed (pain). Indication s: acute pain ondansetron 2021-07 Yes [id number] 1 or 2 Univers 4 mg tablet 0-28 tablets ity o f 00:00: every 6 [place] 00 hours as Medical needed for Branch nausea traMADoL 50 2021-07 Yes [id number] 50mg Take 1 Univ ers mg tablet 0-28 tablet by ity o f 00:00: mouth [place] 00 every 6 Medical (six) Branch hours as needed (pain). Indication s: acute pain ondansetron 2021-07 Yes [id number] 1 or 2 Univers 4 mg tablet 0-28 tablets ity o f 00:00: every 6 [place] 00 hours as Medical needed for Branch nausea traMADoL 50 2021-07 Yes [id number] 50mg Take 1 Univ ers mg tablet 0-28 tablet by ity o f 00:00: mouth [place] 00 every 6 Medical (six) Branch hours as needed (pain). Indication s: acute pain ondansetron 2021-07 Yes [id number] 1 or 2 Univers 4 mg tablet 0-28 tablets ity o f 00:00: every 6 [place] 00 hours as Medical needed for Branch nausea traMADoL 50 2021-07 Yes [id number] 50mg Take 1 Univ ers mg tablet 0-28 tablet by ity o f 00:00: mouth [place] 00 every 6 Medical (six) Branch hours as needed (pain). Indication s: acute pain ondansetron 2021- Yes [id number] 1 or 2 Univers 4 mg tablet 0-28 tablets ity o f 00:00: every 6 [place] 00 hours as Medical needed for Branch nausea traMADoL 50 2021-07 Yes [id number] 50mg Take 1 Univ ers mg tablet 0-28 tablet by ity o f 00:00: mouth [place] 00 every 6 Medical (six) Branch hours as needed (pain). Indication s: acute pain ondansetron 2021-07 Yes [id number] 1 or 2 Univers 4 mg tablet 0-28 tablets ity o f 00:00: every 6 [place] 00 hours as Medical needed for Branch nausea traMADoL 50 2021-07 Yes [id number] 50mg Take 1 Univ ers mg tablet 0-28 tablet by ity o f 00:00: mouth [place] 00 every 6 Medical (six) Branch hours as needed (pain). Indication s: acute pain ondansetron 2021-07 Yes [id number] 1 or 2 Univers 4 mg tablet 0-28 tablets ity o f 00:00: every 6 [place] 00 hours as Medical needed for Branch nausea traMADoL 50 2021-07 Yes [id number] 50mg Take 1 Univ ers mg tablet 0-28 tablet by ity o f 00:00: mouth [place] 00 every 6 Medical (six) Branch hours as needed (pain). Indication s: acute pain ondansetron 2021-07 Yes [id number] 1 or 2 Univers 4 mg tablet 0-28 tablets ity o f 00:00: every 6 [place] 00 hours as Medical needed for Branch nausea traMADoL 50 2021-07- No [id number] 50mg Take 1 Uni vers mg tablet 0-28 12-06 tablet by ity of 00:00: 00:00 mouth [place] 00 :00 every 6 Medical (six) Branch hours as needed (pain). Indication s: acute pain ondansetron 2021-07- No [id number] 1 or 2 Univers 4 mg tablet 0-28 12-06 tablets ity of 00:00: 00:00 every 6 [place] 00 :00 hours as Medical needed for Branch nausea cefdinir 2021-07- No [id number] 300mg Take 1 U nivers 300 mg 0-28 11-08 capsule by ity of capsule 00:00: 05:59 mouth [place] 00 :00 every 12 Medical (twelve) Branch hours for 10 days. cefdinir 2021-07- No [id number] 300mg Take 1 U nivers 300 mg 0-28 11-08 capsule by ity of capsule 00:00: 05:59 mouth [place] 00 :00 every 12 Medical (twelve) Branch hours for 10 days. cefdinir 2021-07- No [id number] 300mg Take 1 U nivers 300 mg 0-28 11-08 capsule by ity of capsule 00:00: 05:59 mouth [place] 00 :00 every 12 Medical (twelve) Branch hours for 10 days. cefdinir 2021-07 No [id number] 300mg Take 1 U nivers 300 mg 0-28 11-08 capsule by ity of capsule 00:00: 05:59 mouth [place] 00 :00 every 12 Medical (twelve) Branch hours for 10 days. cefdinir 2021-07 No [id number] 300mg Take 1 U nivers 300 mg 0-28 11-08 capsule by ity of capsule 00:00: 05:59 mouth [place] 00 :00 every 12 Medical (twelve) Branch hours for 10 days. cefdinir 2021-07 [id number] 300mg Take 1 U nivers 300 mg 0-28 11-08 capsule by ity of capsule 00:00: 05:59 mouth [place] 00 :00 every 12 Medical (twelve) Branch hours for 10 days. ciprofloxac 2021-07 500mg 500 mg, U nivers in HCl 0-16 04-28 Oral, ity of (CIPRO) 23:00: 22:59 Q12HA2, 12 [place] as tablet 500 00 :00 doses, Medical mg First dose Branch on 04/22/22 at 1800, Last dose on [facility] 04/28/22 at 0600, ISABELA
Re ason for Anti-Infec tive: Documented Infection< br>Documen brook Infection Site: Blood
D uration of Therapy: 7 days KCL 2021-07 40meq 40 mEq, Univers (KLOR-CON 0-16 10-16 [...] ed, Routine, Pain (scale 7-10) HYDROcodone 2021-07- No 1{tbl} 1 tablet, Univers -acetaminop 0-16 10-18 Oral, ity of hen (NORCO 00:44: 00:43 Q6HPRN, Tamir as 5) 5-325 mg 43 :43 Starting Medi jd tablet 1 on Sat Branch tablet 04/21/22 at 1944, Until 04/23/22 at 1943, Routine, Pain (scale 4-6) sodium 2021-07 Yes [id number] Apply to Univers hypochlorit 0-16 [id number] area(s) 2 i ty of e 0.25% 00:00: (two) [place] solution 00 times Medical daily. Branch sodium 2021-07 Yes [id number] Apply to Univers hypochlorit 0-16 [id number] area(s) 2 i ty of e 0.25% 00:00: (two) [place] solution 00 times Medical daily. Branch sodium 2021-07 Yes [id number] Apply to Univers hypochlorit 0-16 [id number] area(s) 2 i ty of e 0.25% 00:00: (two) [place] solution 00 times Medical daily. Branch sodium 2021-07 Yes [id number] Apply to Univers hypochlorit 0-16 [id number] area(s) 2 i ty of e 0.25% 00:00: (two) [place] solution 00 times Medical daily. Branch sodium 2021-07 Yes [id number] Apply to Univers hypochlorit 0-16 [id number] area(s) 2 i ty of e 0.25% 00:00: (two) [place] solution 00 times Medical daily. Branch sodium 2021-07 Yes [id number] Apply to Univers hypochlorit 0-16 [id number] area(s) 2 i ty of e 0.25% 00:00: (two) [place] solution 00 times Medical daily. Branch sodium 2021-07 Yes [id number] Apply to Univers hypochlorit 0-16 [id number] area(s) 2 i ty of e 0.25% 00:00: (two) [place] solution 00 times Medical daily. Branch sodium 2021-07 Yes [id number] Apply to Univers hypochlorit 0-16 [id number] area(s) 2 i ty of e 0.25% 00:00: (two) [place] solution 00 times Medical daily. Branch sodium 2021-07 Yes [id number] Apply to Univers hypochlorit 0-16 [id number] area(s) 2 i ty of e 0.25% 00:00: (two) [place] solution 00 times Medical daily. Branch sodium 2021-07 Yes [id number] Apply to Univers hypochlorit 0-16 [id number] area(s) 2 i ty of e 0.25% 00:00: (two) [place] solution 00 times Medical daily. Branch sodium 2021-07 Yes [id number] Apply to Univers hypochlorit 0-16 [id number] area(s) 2 i ty of e 0.25% 00:00: (two) [place] solution 00 times Medical daily. Branch sodium 2021-07 Yes [id number] Apply to Univers hypochlorit 0-16 [id number] area(s) 2 i ty of e 0.25% 00:00: (two) [place] solution 00 times Medical daily. Branch sodium 2021-07 Yes [id number] Apply to Univers hypochlorit 0-16 [id number] area(s) 2 i ty of e 0.25% 00:00: (two) [place] solution 00 times Medical daily. Branch sodium 2021-07 Yes [id number] Apply to Univers hypochlorit 0-16 [id number] area(s) 2 i ty of e 0.25% 00:00: (two) [place] solution 00 times Medical daily. Branch sodium 2021-07 Yes [id number] Apply to Univers hypochlorit 0-16 [id number] area(s) 2 i ty of e 0.25% 00:00: (two) [place] solution 00 times Medical daily. Branch sodium 2021-07 Yes [id number] Apply to Univers hypochlorit 0-16 [id number] area(s) 2 i ty of e 0.25% 00:00: (two) [place] solution 00 times Medical daily. Branch sodium 2021-07 Yes [id number] Apply to Univers hypochlorit 0-16 [id number] area(s) 2 i ty of e 0.25% 00:00: (two) [place] solution 00 times Medical daily. Branch sodium 2021-07 Yes [id number] Apply to Univers hypochlorit 0-16 [id number] area(s) 2 i ty of e 0.25% 00:00: (two) [place] solution 00 times Medical daily. Branch sodium 2021-07 Yes [id number] Apply to Univers hypochlorit 0-16 [id number] area(s) 2 i ty of e 0.25% 00:00: (two) [place] solution 00 times Medical daily. Branch sodium 2021-07 Yes [id number] Apply to Univers hypochlorit 0-16 [id number] area(s) 2 i ty of e 0.25% 00:00: (two) [place] solution 00 times Medical daily. Branch sodium 2021-07 Yes [id number] Apply to Univers hypochlorit 0-16 [id number] area(s) 2 i ty of e 0.25% 00:00: (two) [place] solution 00 times Medical daily. Branch sodium 2021-07- No [id number] Apply to Univers hypochlorit 0-16 12-06 [id number] area(s) 2 ity of e 0.25% 00:00: 00:00 (two) [place] solution 00 :00 times Medical daily. [place] ciprofloxac 2021-07- No [id number] 500mg Take 1 Univers in HCl 500 0-16 10-24 tablet by ity of mg tablet 00:00: 04:59 mouth [place] 00 :00 every 12 Medical (twelve) Branch hours for 7 days. ciprofloxac 2021-07- No [id number] 500mg Take 1 Univers in HCl 500 0-16 10-24 tablet by ity of mg tablet 00:00: 04:59 mouth [place] 00 :00 every 12 Medical (twelve) Branch hours for 7 days. ciprofloxac 2021-07- No [id number] 500mg Take 1 Univers in HCl 500 0-16 10-24 tablet by ity of mg tablet 00:00: 04:59 mouth [place] 00 :00 every 12 Medical (twelve) Branch hours for 7 days. ceFEPIme 2021-07- No 2000mg 2,000 mg, U nivers (MAXIPIME) 0 10-16 IV ity of 2,000 mg in 21:00: 13:14 Piggyback, [place] NaCl 0.9% 00 :32 Q8H ABX, [...] ity of 1,000 mg in 13:00: 13:29 [place], [place] NaCl 0.9% 00 :41 Q8H ABX, [...] No 1000mg 1,000 mg, U nivers (MAXIPIME) 0-20 04-14 IV ity of 1,000 mg in 05:15: 05:51 [place], [place] NaCl 0.9% 00 :00 ONCE, 1 Medical (NS) 50 mL dose, On Bran h MINI-BAG Sat04/20/22 at 0015, Administer over 30 Minutes, 50 mL
Reas on for Anti-Infec tive: Documented Infection< br>Documen brook Infection Site: Skin / Soft Tissue
Duration of Therapy: 14 days lactated 2021-07 No 1000mL at 500 Univ ers [place] IV 0-14 10-14 mL/hr, ity of infusion 05:00: 04:53 1,000 mL, Tam[place] as 1,000 mL 00 :22 IV Medical Infusion, Branch ONCE, 1 dose, On Sat04/20/22 at 0000, STAT vancomycin 2021-07 No 15mg/kg 1,500 mg Univers (VANCOCIN) 0-14 10-15 (rounded ity of 1,500 mg in 04:30: 00:00 from 1,749 [place] NaCl 0.9% 00 :53 mg = 15 Medical (NS) 500 mL mg/kg Branch VIAL-MATE ?116.6 IV kg), IV piggyback Piggyback, Q12H ABX, 28 doses, First dose on [facility] 04/19/22 at 2330, Last dose on [facility] 05/03/22 at 1130, Administer over 90 Minutes, 500 mL
R ezio for Anti-Infec tive: Documented Infection< br>Documen brook Infection Site: Skin / Soft Tissue
Duration of Therapy: 14 days ALPRAZolam 2021-07 Yes .5mg 0.5 mg, Univ ers (XANAX) 0-14 Oral, ity of tablet 0.5 02:35: QHSPRN, [place] mg 13 Starting Medical on [facility] Branch 04/19/22 at 2135, Until Discontinu ed, Routine, Anxiety, Insomnia sodium 2021-07 Yes Topical, Univers hypochlorit 0-14 BID, First it y of e 0.25% 01:00: dose on [place] (DAKIN'S 00 [facility] Medical SOLUTION) 04/19/22 Branch solution at 2000, Until Discontinu ed, Routine ibuprofen 2021-07 Yes 400mg 400 mg, Univ ers (IBU) 0-14 Oral, ity of tablet 400 00:50: Q6HPRN, [place] mg 13 Starting Medical on [facility] 04/19/22 at 1950, Until Discontinu ed, Routine, Temp > 38.5 C enoxaparin 2021-07 Yes 40mg 40 mg, Unive rs (LOVENOX) 0-13 Subcutaneo ity of injection 22:00: [place], DAILY, [place] 40 mg 00 First dose Medical on [facility] 04/19/22 at 1700, Until Discontinu ed, Routine NaCl 0.9% 2021-07 Yes 1000mL at 125 Univ ers (NS) IV 0-13 mL/hr, IV ity of infusion 20:45: Infusion, [place] 1,000 mL 00 CONTINUOUS Medic al , Starting Branch on [facility] 04/19/22 at 1545, Until Discontinu ed, Routine ondansetron 2021-07 Yes 4mg 4 mg, Slow [facility] (ZOFRAN 0-13 IV Push, ity of (PF)) 20:34: Q6HPRN, [place] injection 4 03 Starting Medi jd mg on [facility] Branch 04/19/22 at 1534, Until Discontinu ed, Routine, Nausea and Vomiting (N/V) morpHINE (2 2021-07- No 4mg 4 mg, Slow [facility] mg/mL) 0 10-14 IV Push, ity of injection 4 20:34: 20:33 Q4HPRN, [place] mg 00 :00 Starting Medical on [facility] Branch 04/19/22 at 1534, Until 04/20/22 at 1533, Routine, Pain (scale 7-10) HYDROcodone 2021-07- No 1{tbl} 1 tablet, [facility] -acetaminop 0- 10-15 Oral, ity of hen (NORCO 20:33: 20:32 Q6HPRN, [place] as 5) 5-325 mg 59 :59 Starting Medi jd tablet 1 on [facility] Branch tablet 04/19/22 at 1533, Until 04/21/22 at 1532, Routine, Pain (scale 4-6) acetaminoph 2021-07 Yes 650mg 650 mg, Un gadiel en 0 Oral, ity of (TYLENOL) 20:33: Q6HPRN, [place] tablet 650 50 Starting Medic al mg on [facility] 04/19/22 at 1533, Until Discontinu ed, Routine, Pain (scale 1-3), Temp > 38.5 C iopamidol 2021-07- No [id number] 75mL 75 mL, Univers (ISOVUE 004-19 Intravenou ity o f 370-500 mL) 18:45: 18:45 s, ONCE, 1 [place] injection 00 :00 dose, On Medica l 75 mL [facility] 04/19/22 at 1345, Routine ketorolac 2021-07- No 30mg 30 mg, Unive rs (TORADOL) 0- Slow IV ity of injection 16:00: 15:31 Push, [place] 30 mg 00 :00 ONCE, 1 Medical dose, On Branch [facility] 04/19/22 at 1100, Routine NaCl 0.9% 2021-07- No 30mL/kg at 999 Un gadiel (NS) bolus 0-13 10-13 mL/hr, ity of infusion 15:45: 17:28 3,498 mL [place] 3,[place] 00 :00 (30 mL/kg Medica l ?116.6 Branch kg), IV Infusion, ONCE, 1 dose, On [facility] 04/19/22 at 1045, ISABELA ondansetron 2021-07 No 4mg 4 mg, Slow Univers (ZOFRAN 04-19 IV Push, ity of (PF)) 15:30: 15:30 ONCE, 1 [place] injection 4 00 :00 dose, On Medi jd mg [facility] 04/19/22 at 1030, ISABELA morpHINE (4 2021-07 No 4mg 4 mg, Slow Univers mg/mL) 04-19 IV Push, ity of injection 4 15:00: 15:30 ONCE, 1 [place] mg 00 :[place] dose, On Medical [facility] 04/19/22 at 1000, STAT acetaminoph 2021-07 No 650mg 650 mg, U nivers en 04-19 Oral, ity of (TYLENOL) 15:00: 15:29 ONCE, [place] 650 [place] :00 dose, On Medic al mg [facility] 04/19/22 at 1000, ISABELA cefTRIAXone 2021-07 No 1000mg 1,000 mg, Univers (ROCEPHIN) 04-19 IV ity of 1,000 mg in 15:00: 16:01 [place], [place] NaCl 0.9% 00 :00 ONCE, 1 Medical (NS) 50 mL dose, On Branc h MINI-BAG [facility] 04/19/22 at 1000, Administer over 30 Minutes, 50 mL
Reas on for Anti-Infec tive: Empiric Therapy for Suspected Infection< br>Empiric Therapy Site: Urine
D uration of therapy: 72 hours multivit-ir 2021- No [id number] 1{tbl} Take 1 Univers on-FA-calci 03-22 tablet by it y of um-mins 9 00:00: 00:00 mouth in [facility] as mg iron-400 00 :00 the Medical mcg tablet morning Branch for 30 days. zinc 2021- No [id number] 50mg Take 1 Unive rs sulfate 50 03-21 capsule by it y of mg zinc 00:00: 04:59 mouth in [place] (220 mg) 00 :00 the Medical capsule morning Branch and 1 capsule at noon and 1 capsule in the evening. Do all this for 30 days. sodium 202-0 2022- No [id number] Apply to U nivers hypochlorit 9-14 10-15 area(s) 2 it y of e 0.125 % 00:00: :59 (two) [place] (DAKIN'S 00 :00 times Medical SOLUTION) daily for Branc h solution 30 days. zinc 202-0 2022- No [id number] 50mg Take 1 Unive rs sulfate 50 9-14 10-15 capsule by it y of mg zinc 00:00: :59 mouth in [place] (220 mg) 00 :00 the Medical capsule morning Branch and 1 capsule at noon and 1 capsule in the evening. Do all this for 30 days. sodium 2021-0 2021- No [id number] Apply to U nivers hypochlorit 9-14 10-15 area(s) 2 it y of e 0.125 % 00:: :59 (two) [place] (DAKIN'S 00 :00 times Medical SOLUTION) daily for Branc h solution 30 days. zinc 2021-0 2021- No [id number] 50mg Take 1 Unive rs sulfate 50 9-14 10-15 capsule by it y of mg zinc 00:: :59 mouth in [place] (220 mg) 00 :00 the Medical capsule morning Branch and 1 capsule at noon and 1 capsule in the evening. Do all this for 30 days. sodium 2021-0 2021- No [id number] Apply to U nivers hypochlorit 9-14 10-15 area(s) 2 it y of e 0.125 % 00:00: :59 (two) [place] ([facility]S 00 :00 times Medical SOLUTION) daily for Branc h solution 30 days. zinc 2022-0 2022- No [id number] 50mg Take 1 Unive rs sulfate 50 9-14 10-15 capsule by it y of mg zinc 00:00: :59 mouth in [place] (220 mg) 00 :00 the Medical capsule morning Branch and 1 capsule at noon and 1 capsule in the evening. Do all this for 30 days. sodium 2022-0 2022- No [id number] Apply to U nivers hypochlorit 9-14 10-15 area(s) 2 it y of e 0.125 % 00:00: 04:59 (two) [place] ([facility] 00 :00 times Medical SOLUTION) daily for Branc h solution 30 days. zinc 2021-0 2022- No [id number] 50mg Take 1 Unive rs sulfate 50 9-14 10-15 capsule by it y of mg zinc 00:00: 04:59 mouth in [place] (220 mg) 00 :00 the Medical capsule morning Branch and 1 capsule at noon and 1 capsule in the evening. Do all this for 30 days. sodium 2021-0 202- No [id number] Apply to U nivers hypochlorit 9-14 10-15 area(s) 2 it y of e 0.125 % 00:00: :59 (two) [place] ([facility] 00 :00 times Medical SOLUTION) daily for Branc h solution 30 days. zinc 2021-0 202- No [id number] 50mg Take 1 Unive rs sulfate 50 9-14 10-15 capsule by it y of mg zinc 00:00: :59 mouth in [place] (220 mg) 00 :00 the Medical capsule morning Branch and 1 capsule at noon and 1 capsule in the evening. Do all this for 30 days. sodium 2021-0 2021- No [id number] Apply to U nivers hypochlorit 9-14 10-15 area(s) 2 it y of e 0.125 % 00:00: 04:59 (two) [place] ([facility] 00 :00 times Medical SOLUTION) daily for Branc h solution 30 days. zinc 2021-0 202- No [id number] 50mg Take 1 Unive rs sulfate 50 9-14 10-15 capsule by it y of mg zinc 00:00: 04:59 mouth in [place] (220 mg) 00 :00 the Medical capsule morning Branch and 1 capsule at noon and 1 capsule in the evening. Do all this for 30 days. sodium 2021-0 202- No [id number] Apply to U nivers hypochlorit 9-14 10-15 area(s) 2 it y of e 0.125 % 00:00: 04:59 (two) [place] ([facility] 00 :00 times Medical SOLUTION) daily for Branc h solution 30 days. zinc 2022-0 2022- No [id number] 50mg Take 1 Unive rs sulfate 50 9-14 10-15 capsule by it y of mg zinc 00:00: :59 mouth in [place] (220 mg) 00 :00 the Medical capsule morning Branch and 1 capsule at noon and 1 capsule in the evening. Do all this for 30 days. sodium 2022-0 2022- No [id number] Apply to U nivers hypochlorit 9-14 10-15 area(s) 2 it y of e 0.125 % 00:00: 04:59 (two) [place] ([facility] 00 :00 times Medical SOLUTION) daily for Branc h solution 30 days. zinc 2022-0 2022- No [id number] 50mg Take 1 Unive rs sulfate 50 9-14 10-15 capsule by it y of mg zinc 00:: :59 mouth in [place] (220 mg) 00 :00 the Medical capsule morning Branch and 1 capsule at noon and 1 capsule in the evening. Do all this for 30 days. sodium 2022-0 2022- No [id number] Apply to U nivers hypochlorit 9-14 10-15 area(s) 2 it y of e 0.125 % 00:: :59 (two) [place] ([facility] 00 :00 times Medical SOLUTION) daily for Branc h solution 30 days. zinc 2022-0 2022- No [id number] 50mg Take 1 Unive rs sulfate 50 9-14 10-15 capsule by it y of mg zinc 00:: :59 mouth in [place] (220 mg) 00 :00 the Medical capsule morning Branch and 1 capsule at noon and 1 capsule in the evening. Do all this for 30 days. sodium 2022-0 2022- No [id number] Apply to U nivers hypochlorit 9-14 10-15 area(s) 2 it y of e 0.125 % 00:00: 04:59 (two) [place] ([facility] 00 :00 times Medical SOLUTION) daily for Branc h solution 30 days. zinc 2022-0 2022- No [id number] 50mg Take 1 Unive rs sulfate 50 9-14 10-15 capsule by it y of mg zinc 00:00: 04:59 mouth in [place] (220 mg) 00 :00 the Medical capsule morning Branch and 1 capsule at noon and 1 capsule in the evening. Do all this for 30 days. sodium 202-0 2022- No [id number] Apply to U nivers hypochlorit 9-14 10-15 area(s) 2 it y of e 0.125 % 00:00: :59 (two) [place] ([facility] 00 :00 times Medical SOLUTION) daily for Branc h solution 30 days. zinc 202-0 2022- No [id number] 50mg Take 1 Unive rs sulfate 50 9-14 10-15 capsule by it y of mg zinc 00:00: :59 mouth in [place] (220 mg) 00 :00 the Medical capsule morning Branch and 1 capsule at noon and 1 capsule in the evening. Do all this for 30 days. sodium 2021-0 2021- No [id number] Apply to U nivers hypochlorit 9-14 10-15 area(s) 2 it y of e 0.125 % 00:: :59 (two) [place] ([facility] 00 :00 times Medical SOLUTION) daily for Branc h solution 30 days. zinc 2021-0 2021- No [id number] 50mg Take 1 Unive rs sulfate 50 9-14 10-15 capsule by it y of mg zinc 00:: :59 mouth in [place] (220 mg) 00 :00 the Medical capsule morning Branch and 1 capsule at noon and 1 capsule in the evening. Do all this for 30 days. sodium 2021-0 2021- No [id number] Apply to U nivers hypochlorit 9-14 10-15 area(s) 2 it y of e 0.125 % 00:00: :59 (two) [place] ([facility] 00 :00 times Medical SOLUTION) daily for Branc h solution 30 days. zinc 2022-0 2022- No [id number] 50mg Take 1 Unive rs sulfate 50 9-14 10-15 capsule by it y of mg zinc 00:00: :59 mouth in [place] (220 mg) 00 :00 the Medical capsule morning Branch and 1 capsule at noon and 1 capsule in the evening. Do all this for 30 days. sodium 2022-0 2022- No [id number] Apply to U nivers hypochlorit 9-14 10-15 area(s) 2 it y of e 0.125 % 00:00: 04:59 (two) [place] ([facility] 00 :00 times Medical SOLUTION) daily for Branc h solution 30 days. zinc 2021-0 2022- No [id number] 50mg Take 1 Unive rs sulfate 50 9-14 10-15 capsule by it y of mg zinc 00:00: 04:59 mouth in [place] (220 mg) 00 :00 the Medical capsule morning Branch and 1 capsule at noon and 1 capsule in the evening. Do all this for 30 days. sodium 2021-0 202- No [id number] Apply to U nivers hypochlorit 9-14 10-15 area(s) 2 it y of e 0.125 % 00:00: :59 (two) [place] ([facility] 00 :00 times Medical SOLUTION) daily for Branc h solution 30 days. zinc 2021-0 202- No [id number] 50mg Take 1 Unive rs sulfate 50 9-14 10-15 capsule by it y of mg zinc 00:00: :59 mouth in [place] (220 mg) 00 :00 the Medical capsule morning Branch and 1 capsule at noon and 1 capsule in the evening. Do all this for 30 days. sodium 2021-0 2021- No [id number] Apply to U nivers hypochlorit 9-14 10-15 area(s) 2 it y of e 0.125 % 00:00: 04:59 (two) [place] ([facility] 00 :00 times Medical SOLUTION) daily for Branc h solution 30 days. zinc 2021-0 202- No [id number] 50mg Take 1 Unive rs sulfate 50 9-14 10-15 capsule by it y of mg zinc 00:00: 04:59 mouth in [place] (220 mg) 00 :00 the Medical capsule morning Branch and 1 capsule at noon and 1 capsule in the evening. Do all this for 30 days. sodium 2021-0 202- No [id number] Apply to U nivers hypochlorit 9-14 10-15 area(s) 2 it y of e 0.125 % 00:00: 04:59 (two) [place] ([facility] 00 :00 times Medical SOLUTION) daily for Branc h solution 30 days. zinc 2022-0 2022- No [id number] 50mg Take 1 Unive rs sulfate 50 9-14 10-13 capsule by it y of mg zinc 00:00: 00:00 mouth in [place] (220 mg) 00 :00 the Medical capsule morning Branch and 1 capsule at noon and 1 capsule in the evening. Do all this for 30 days. sodium 2022-0 2022- No [id number] Apply to U nivers hypochlorit 9-14 10-13 area(s) 2 it y of e 0.125 % 00:00: 00:00 (two) [place] ([facility] 00 :00 times Medical SOLUTION) daily for Branc h solution 30 days. zinc 2022-0 2022- No [id number] 50mg Take 1 Unive rs sulfate 50 9-14 10-13 capsule by it y of mg zinc 00:00: 00:00 mouth in [place] (220 mg) 00 :00 the Medical capsule morning Branch and 1 capsule at noon and 1 capsule in the evening. Do all this for 30 days. sodium 2022-0 2022- No [id number] Apply to U nivers hypochlorit 9-14 10-13 area(s) 2 it y of e 0.125 % 00:00: 00:00 (two) [place] ([facility] 00 :00 times Medical SOLUTION) daily for Branc h solution 30 days. zinc 2022-0 2022- No [id number] 50mg Take 1 Unive rs sulfate 50 9-14 10-13 capsule by it y of mg zinc 00:00: 00:00 mouth in [place] (220 mg) 00 :00 the Medical capsule morning Branch and 1 capsule at noon and 1 capsule in the evening. Do all this for 30 days. sodium 2022-0 2022- No [id number] Apply to U nivers hypochlorit 9-14 10-13 area(s) 2 it y of e 0.125 % 00:00: 00:00 (two) [place] ([facility] 00 :00 times Medical SOLUTION) daily for Branc h solution 30 days. zinc 2022-0 2022- No [id number] 50mg Take 1 Unive rs sulfate 50 9-14 10-13 capsule by it y of mg zinc 00:00: 00:00 mouth in [place] (220 mg) 00 :00 the Medical capsule morning Branch and 1 capsule at noon and 1 capsule in the evening. Do all this for 30 days. sodium 2021- No [id number] Apply to [facility] hypochlorit 03-21 area(s) 2 it y of e 0.125 % 00:00: 00:00 (two) [place] ([facility] 00 :00 times Medical SOLUTION) daily for Branc h solution 30 days. sodium 2021- No [id number] Apply to [facility] hypochlorit 03-21 area(s) 2 it y of e 0.025% 00:00: 00:00 (two) [place] Soln 00 :00 times Medical solution daily for Branch 30 days. sulfamethox 2021- No [id number] 2{tbl} Take 2 Univers azole-trime 8-25 08-31 tablets by i ty of thoprim 00:00: 04:59 mouth in [place] (BACTRIM) 00 :00 the Medical 400-80 mg morning Branch per tablet and 2 tablets in the evening. Do all this for 5 days. collagenase 2021- No [id number] Apply to [facility] 250 2-16 09-07 [id number] affected ity of unit/gram 00:00: 00:00 area(s) [facility] s ointment 00 :00 daily. Medical Branch ciprofloxac 2020-07- No 500mg Q.5D Take [address] in HCl 0-15 10-25 tablet [facility] (CIPRO) 500 00:00: 23:59 (500 mg Me dical MG tablet 00 :00 total) by Cente r mouth 2 (two) times daily for 10 days. Vital Signs Vital Name Observation Time Observation Value Comments Source HEIGHT 2022-07-24 20:50:00 185.4 cm WEIGHT 2022-07-24 20:50:00 113.399 kg HEIGHT 2022-07-24 20:50:00 185.4 cm WEIGHT 2022-07-24 20:50:00 113.399 kg HEIGHT 2022-07-24 20:50:00 185.4 cm WEIGHT 2022-07-24 20:50:00 113.399 kg HEIGHT 2022-07-13 11:21:00 185.4 cm WEIGHT 2022-07-13 11:21:00 111.812 kg HEIGHT 2022-06-26 12:32:00 185.4 cm WEIGHT 2022-06-26 12:32:00 117.028 kg HEIGHT 2022-07-13 11:21:00 185.4 cm WEIGHT 2022-07-13 11:21:00 111.812 kg HEIGHT 2022-06-26 12:32:00 185.4 cm WEIGHT 2022-06-26 12:32:00 117.028 kg HEIGHT 2022-07-13 11:21:00 185.4 cm WEIGHT 2022-07-13 11:21:00 111.812 kg HEIGHT 2022-06-26 12:32:00 185.4 cm WEIGHT 2022-06-26 12:32:00 117.028 kg Systolic blood 2022-06-25 18:22:00 147 mm[Hg] Univer sity of pressure [facility] Diastolic blood 2022-06-25 18:22:00 89 mm[Hg] Unive rsity of [facility] Heart rate 2022-06-25 18:22:00 101 /min Universi ty [facility] Body temperature 2022-06-25 18:22:00 36.67 [facility] [place] [facility] 2022-06-25 18:22:00 18 /min [facility] [place] [facility] Oxygen saturation in 2022-06-25 18:22:00 94 /min [facility] Arterial blood by [facility] Pulse oximetry Branch Body weight 2022-06-25 09:17:00 116.983 kg Universi ty of [facility] BMI 2022-06-25 09:17:00 34.03 kg/m2 Universi ty [facility] Body height 2022-06-25 05:22:00 185.4 cm Universi ty [facility] Systolic blood 2022-06-14 20:32:00 130 mm[Hg] Univer sity of pressure [facility] Diastolic blood 2022-06-14 20:32:00 73 mm[Hg] Unive rsity of pressure [facility] Heart rate 2022-06-14 20:32:00 103 /min Universi ty [facility] Body temperature 2022-06-14 20:32:00 36.89 Emma Univ ersity of [place] [facility] Respiratory rate 2022-06-14 20:32:00 18 /min Univ ersity of [place] [facility] Oxygen saturation in 2022-06-14 20:32:00 93 /min University of Arterial blood by [facility] Pulse oximetry Branch Body weight 2022-06-14 10:11:00 115.486 kg [facility] [place] [facility] BMI 2022-06-14 10:11:00 33.59 kg/m2 [facility] [place] [facility] Body height 2022-06-13 10:37:00 185.4 cm [facility] [place] [facility] Heart rate 2022-06-06 21:28:00 95 /min [facility] [place] [facility] Systolic blood 2022-06-06 21:03:00 121 mm[Hg] Univer sity of pressure [place] [facility] Diastolic blood 2022-06-06 21:03:00 87 mm[Hg] Unive rsity of pressure [place] [facility] Body temperature 2022-06-06 21:03:00 37.11 Emma Univ ersity [facility] [place] [facility] Body height 2022-06-06 21:03:00 185.4 cm [facility] [place] [facility] Body weight 2022-06-06 21:03:00 117.028 kg [facility] [place] [facility] BMI 2022-06-06 21:03:00 34.04 kg/m2 [facility] [place] [facility] Oxygen saturation in 2022-06-06 21:03:00 95 /min University of Arterial blood by [facility] Pulse oximetry Branch Systolic blood 2022-05-14 18:09:00 139 mm[Hg] Univer sity of pressure [place] [facility] Diastolic blood 2022-05-14 18:09:00 86 mm[Hg] Unive rsity of pressure [place] [facility] Heart rate 2022-05-14 18:09:00 97 /min [facility] [place] [facility] Body temperature 2022-05-14 18:09:00 35.94 Emma [facility] [place] [facility] Respiratory rate 2022-05-14 18:09:00 16 /min Univ ersity [facility] [place] [facility] Body height 2022-05-14 18:09:00 185.4 cm [facility] [place] [facility] Body weight 2022-05-14 18:09:00 116.574 kg [facility] [place] [facility] BMI 2022-05-14 18:09:00 33.91 kg/m2 [facility] [place] [facility] Oxygen saturation in 2022-05-14 18:09:00 98 /min University of Arterial blood by [facility] jd Pulse oximetry Branch Systolic blood 2022-05-04 09:00:00 104 mm[Hg] Univer sity of pressure [place] [facility] Diastolic blood 2022-05-04 09:00:00 61 mm[Hg] Unive rsity of pressure [place] [facility] Respiratory rate 2022-05-04 09:00:00 25 /min Univ ersity [facility] [place] [facility] Heart rate 2022-05-04 05:35:00 115 /min [facility] [place] [facility] Body temperature 2022-05-04 05:35:00 37.56 Emma [facility] [place] [facility] Body height 2022-05-04 05:35:00 185.4 cm [facility] [place] [facility] Body weight 2022-05-04 05:35:00 116.574 kg [facility] [place] [facility] BMI 2022-05-04 05:35:00 33.91 kg/m2 [facility] [place] [facility] Oxygen saturation in 2022-05-04 05:35:00 95 /min University of Arterial blood by [facility] Pulse oximetry Branch Heart rate 2022-05-02 19:49:00 95 /min [facility] [place] [facility] Systolic blood 2022-05-02 19:23:00 129 mm[Hg] Univer sity of pressure [place] [facility] Diastolic blood 2022-05-02 19:23:00 84 mm[Hg] Unive rsity of pressure [place] [facility] Body temperature 2022-05-02 19:23:00 36.56 Emma Univ ers[facility] [place] [facility] Body weight 2022-05-02 19:23:00 116.574 kg [facility] [place] [facility] BMI 2022-05-02 19:23:00 33.91 kg/m2 [facility] [place] [facility] Oxygen saturation in 2022-05-02 19:23:00 97 /min University of Arterial blood by [facility] Pulse oximetry Branch Systolic blood 2022-04-22 20:13:00 141 mm[Hg] Univer sity of pressure [place] [facility] Diastolic blood 2022-04-22 20:13:00 88 mm[Hg] Unive rsity of pressure [place] [facility] Heart rate 2022-04-22 20:13:00 77 /min [facility] [place] [facility] Body temperature 2022-04-22 20:13:00 36.28 Emma Univ ers[facility] [place] [facility] Respiratory rate 2022-04-22 20:13:00 18 /min Univ ersity [facility] [place] [facility] Oxygen saturation in 2022-04-22 20:13:00 97 /min University of Arterial blood by [place] [employer] [facility] Pulse oximetry Branch Body weight 2022-04-21 09:00:00 120.974 kg [facility]i ty [facility] [place] [facility] BMI 2022-04-21 09:00:00 35.19 kg/m2 [facility] [place] [facility] Body height 2022-04-19 23:48:00 185.4 cm [facility] [place] [facility] Systolic blood 2022-04-16 18:24:00 138 mm[Hg] Univer sity of pressure [place] [facility] Diastolic blood 2022-04-16 18:24:00 96 mm[Hg] Unive rsity of pressure [place] [facility] Heart rate 2022-04-16 18:23:00 98 /min [facility] [place] [facility] Body weight 2022-04-16 18:23:00 116.574 kg [facility] [place] [facility] BMI 2022-04-16 18:23:00 33.91 kg/m2 [facility] [place] [facility] Oxygen saturation in 2022-04-16 18:23:00 97 /min University of Arterial blood by [facility] jd Pulse oximetry Branch Systolic blood 2022-04-05 19:31:00 123 mm[Hg] Univer sity of pressure [place] [facility] Diastolic blood 2022-04-05 19:31:00 79 mm[Hg] Unive rsity of pressure [place] [facility] Heart rate 2022-04-05 19:31:00 110 /min [facility] [place] [facility] Body temperature 2022-04-05 19:31:00 36.5 Emma Univ ers[facility] [place] [facility] Respiratory rate 2022-04-05 19:31:00 18 /min Univ ersity [facility] [place] [facility] Body height 2022-04-05 19:31:00 185.4 cm [facility] [place] [facility] Body weight 2022-04-05 19:31:00 116.574 kg [facility] [place] [facility] BMI 2022-04-05 19:31:00 33.91 kg/m2 [facility] [place] [facility] Oxygen saturation in 2022-04-05 19:31:00 96 /min University of Arterial blood by [facility] jd Pulse oximetry Branch Systolic blood 2022-04-04 15:58:00 133 mm[Hg] Univer sity of pressure [place] [facility] Diastolic blood 2022-04-04 15:58:00 89 mm[Hg] Unive rsity of pressure [place] [facility] Heart rate 2022-04-04 15:58:00 87 /min [facility] [place] [facility] Body temperature 2022-04-04 15:58:00 36.67 Emma [facility] [place] [facility] Body height 2022-04-04 15:58:00 185.4 cm [facility] [place] [facility] Body weight 2022-04-04 15:58:00 116.574 kg [facility] [place] [facility] BMI 2022-04-04 15:58:00 33.91 kg/m2 [facility] [place] [facility] Oxygen saturation in 2022-04-04 15:58:00 95 /min University of Arterial blood by [facility] Pulse oximetry Branch Systolic blood 2022-03-30 17:45:00 133 mm[Hg] Univer sity of pressure [place] [facility] Diastolic blood 2022-03-30 17:45:00 83 mm[Hg] Unive rsity of pressure [place] [facility] Heart rate 2022-03-30 17:45:00 100 /min [facility] [place] [facility] Body temperature 2022-03-30 17:45:00 36.33 Emma [facility] [place] [facility] Respiratory rate 2022-03-30 17:45:00 16 /min Univ ersity [facility] [place] [facility] Body height 2022-03-30 17:45:00 185.4 cm [facility] [place] [facility] Body weight 2022-03-30 17:45:00 116.574 kg [facility] [place] [facility] BMI 2022-03-30 17:45:00 33.91 kg/m2 [facility] [place] [facility] Oxygen saturation in 2022-03-30 17:45:00 97 /min University of Arterial blood by [facility] Pulse oximetry Branch HEIGHT 2021-04-18 08:11:00 188 cm WEIGHT 2021-04-18 08:11:00 113.399 kg HEIGHT 2021-04-18 08:11:00 188 cm WEIGHT 2021-04-18 08:11:00 113.399 kg Heart rate 2022-07-27 13:03:34 110 /min [facility] Respiratory rate 2022-07-27 13:03:34 17 /min [facility] Oxygen saturation in 2022-07-27 13:03:34 98 /min [facility] Arterial blood by Medical Ce nter Pulse oximetry Systolic blood 2022-07-27 13:02:45 108 mm[Hg] [facility] Diastolic blood 2022-07-27 13:02:45 79 mm[Hg] [facility] Body temperature 2022-07-27 07:48:46 36.83 Emma [facility] Body height 2022-07-24 20:50:[address] [facility] Body weight 2022-07-24 20:50:[address] [facility] BMI 2022-07-24 20:50:00 32.98 kg/m2 [facility] Heart rate 2022-07-13 07:58:35 117 /min [facility] Oxygen saturation in 2022-07-13 07:58:35 97 /min [facility] Arterial blood by Medical Ce nter Pulse oximetry Body temperature 2022-07-13 07:58:26 36.78 Emma [facility] Systolic blood 2022-07-13 07:57:00 110 mm[Hg] [facility] Diastolic blood 2022-07-13 07:57:00 66 mm[Hg] [facility] Respiratory rate 2022-07-13 04:31:00 19 /min [facility] Heart rate 2022-07-10 10:50:21 102 /min [facility] Respiratory rate 2022-07-10 10:50:21 18 /min [facility] Oxygen saturation in 2022-07-10 10:50:21 95 /min [facility] Arterial blood by Medical Ce nter Pulse oximetry Body temperature 2022-07-10 10:49:38 36.83 Emma [facility] Systolic blood 2022-07-10 10:49:30 114 mm[Hg] [facility] Diastolic blood 2022-07-10 10:49:30 73 mm[Hg] [facility] Systolic blood 2022-07-04 16:18:00 121 mm[Hg] [facility] Diastolic blood 2022-07-04 16:18:00 78 mm[Hg] [facility] Heart rate 2022-07-04 16:18:00 87 /min [facility] Body temperature 2022-07-04 16:18:00 36.44 Emma [facility] Respiratory rate 2022-07-04 16:18:00 17 /min [facility] Oxygen saturation in 2022-07-04 16:18:00 93 /min [place] Health Arterial blood by Medical Ce nter Pulse oximetry Body height 2022-07-01 15:54:[address] [facility] Body weight 2022-07-01 15:54:[address] [facility] BMI 2022-07-01 15:54:00 34.04 kg/m2 [facility] Systolic blood 2022-06-26 12:32:00 136 mm[Hg] [facility] Diastolic blood 2022-06-26 12:32:00 97 mm[Hg] [facility] Heart rate 2022-06-26 12:32:00 106 /min [facility] Body temperature 2022-06-26 12:32:00 36.67 Emma [facility] Respiratory rate 2022-06-26 12:32:00 18 /min [facility] Body height 2022-06-26 12:32:[address] [facility] Body weight 2022-06-26 12:32:[address] [facility] BMI 2022-06-26 12:32:00 34.04 kg/m2 [facility] Oxygen saturation in 2022-06-26 12:32:00 93 /min [facility] Arterial blood by Medical Ce nter Pulse oximetry Systolic blood 2022-03-21 18:14:00 145 mm[Hg] [facility] Diastolic blood 2022-03-21 18:14:00 99 mm[Hg] [facility] Heart rate 2022-03-21 18:14:00 110 /min [facility] Body temperature 2022-03-21 18:14:00 36 Emma [facility] ers[facility] Respiratory rate 2022-03-21 18:14:00 18 /[facility] in 2022-03-21 18:14:00 96 /min University Arterial blood by [facility] Pulse oximetry Branch Body height 2022-03-14 16:48:00 [facility]4 [facility] Body weight 2022-03-14 16:48:00 116.484 kg [facility] BMI 2022-03-14 16:48:00 33.88 kg/m2 [facility] Systolic blood 2021-04-20 15:12:00 121 mm[Hg] [facility] Diastolic blood 2021-04-20 15:12:00 66 mm[Hg] [facility] S [facility] Heart rate 2021-04-20 15:12:00 87 /min [facility] Body temperature 2021-04-20 15:12:00 35.72 Emma [facility] Respiratory rate 2021-04-20 15:12:00 18 /min [facility] Oxygen saturation in 2021-04-20 15:12:00 93 /min [facility] Arterial blood by Medical Ce nter Pulse oximetry Body height 2021-04-18 08:11:[address] [facility] Body weight 2021-04-18 08:11:[address] [facility] BMI 2021-04-18 08:11:00 32.10 kg/m2 [facility] Procedures Procedure Date / Time Performing Clinician Source Performed MAGNESIUM 2022-07-31 13:36:00 [facility] CBC W/AUTO DIFF WITH 2022-07-31 13:36:00 [facility] Medicine COMPREHENSIVE METABOLIC 2022-07-31 13:36:00 [facility] POCT-GLUCOSE METER 2022-07-27 08:17:00 Edwina Rojas [facility] CBC W/PLT COUNT & AUTO 2022-07-27 03:36:00 Norm King [facility] DIFFERENTIAL Center TYPE AND SCREEN, AUTOMATED 2022-07-27 03:36:00 Norm King [facility] CBC W/PLT COUNT & AUTO 2022-07-27 03:36:00 Norm King [facility] (CELLAVISION MANUAL DIFF) 2022-07-27 03:36:00 Norm King [facility] POCT-GLUCOSE METER 2022-07-26 07:54:00 [facility] W/[facility]T COUNT & AUTO 2022-07-26 04:34:00 DariusPacheco [facility] CBC W/PLT COUNT & AUTO 2022-07-26 04:34:00 DariusPacheco C [facility] (CELLAVISION MANUAL DIFF) 2022-07-26 04:34:00 DariusPacheco [facility] BASIC METABOLIC PANEL 2022-07-26 03:26:00 DariusPacheco [facility] MAGNESIUM 2022-07-26 03:26:[address] [facility] PHOSPHORUS 2022-07-26 03:26:00 Darius [facility] VANCOMYCIN LEVEL, TROUGH 2022-07-25 21:39:00 Angela Ramos [facility] URINE CULTURE 2022-07-25 19:27:00 Angela Ramos [facility] POCT-GLUCOSE METER 2022-07-25 06:19:00 Enid Butt [facility] BASIC METABOLIC PANEL 2022-07-25 04:24:00 [facility] CBC W/PLT COUNT & AUTO 2022-07-25 04:24:00 [facility] DIFFERENTIAL Center MAGNESIUM 2022-07-25 04:24:00 [facility] PHOSPHORUS 2022-07-25 04:24:00 [facility] HEPATIC FUNCTION PANEL 2022-07-25 04:24:00 [facility] CBC W/PLT COUNT & AUTO 2022-07-25 04:24:00 [facility] (CELLAVISION MANUAL DIFF) 2022-07-25 04:24:00 [facility] CTA CHEST FOR PULMONARY 2022-07-25 03:38:00 [place] [facility] EMBOLUS Center ED ECG INTERPRETATION 2022-07-25 01:09:15 Jose [facility] HIGH SENSITIVITY TROPONIN 2022-07-25 00:54:00 Jose [facility] URINALYSIS W/ REFLEX URINE 2022-07-24 22:40:00 Lazaro Garcia [facility] CULTURE Center BLOOD CULTURE 2022-07-24 22:08:00 Jose [facility] SARS-COV2/INFLUENZA/RSV 2022-07-24 21:49:00 Jose [facility] RT-PCR Center CBC W/PLT COUNT & AUTO 2022-07-24 21:48:00 Jose [facility] LACTIC ACID, VENOUS 2022-07-24 21:48:00 Jose [facility] COMPREHENSIVE METABOLIC 2022-07-24 21:48:00 Jose [facility] PANEL Center PROTHROMBIN TIME/INR 2022-07-24 21:48:00 Jose [facility] APTT 2022-07-24 21:48:00 Jose [facility] LACTATE DEHYDROGENASE 2022-07-24 21:48:00 [facility] [place] URIC ACID 2022-07-24 21:48:00 [facility] PHOSPHORUS 2022-07-24 21:48:00 [facility] CBC W/PLT COUNT & AUTO 2022-07-24 21:48:00 Jose [facility] (CELLAVISION MANUAL DIFF) 2022-07-24 21:48:00 [facility] BLOOD CULTURE 2022-07-24 21:47:00 Jose, [facility] XR CHEST 1 VIEW PORTABLE / 2022-07-24 21:22:00 Lazaro Garcia [facility] BEDSIDE Center ECG 12-LEAD 2022-07-24 20:59:35 MercJamel ibrahim [facility] ECG 12-LEAD 2022-07-24 20:59:35 Unknown, Hl7 [facility] ECG 12-LEAD 2022-07-24 20:59:35 Unknown, Hl7 [facility] EKG-SCANNED 2022-07-24 00:00:00 Padmini Jones [facility] BASIC METABOLIC PANEL 2022-07-18 04:03:00 Se Horton [facility] PHOSPHORUS 2022-07-18 04:03:00 Fernando [facility] URIC ACID 2022-07-18 04:03:00 Fernando [facility] CBC W/PLT COUNT & AUTO 2022-07-18 04:03:[address] [facility] HEPATIC FUNCTION PANEL 2022-07-18 04:03:00 Fernando [facility] CBC W/PLT COUNT & AUTO 2022-07-18 04:03:00 Fernando [facility] DIFFERENTIAL [place] (CELLAVISION MANUAL DIFF) 2022-07-18 04:03:00 Norm King [facility] BASIC METABOLIC PANEL 2022-07-17 04:20:00 [facility] PHOSPHORUS 2022-07-17 04:20:00 [facility] URIC ACID 2022-07-17 04:20:00 Fernando [facility] CBC W/PLT COUNT & AUTO 2022-07-17 04:20:00 [facility]EL 2022-07-17 04:20[facility] W/[facility]T COUNT & AUTO 2022-07-17 04:20:00 [facility] SARS-COV2/RT-PCR ([facility] & 2022-07-16 22:19:00 Jamel Pittman [facility] LABS) [place] SPUTUM CULTURE + GRAM 2022-07-16 15:23:00 Amilcar Main [facility] BASIC METABOLIC PANEL 2022-07-16 04:54:00 [facility] PHOSPHORUS 2022-07-16 04:54:00 [facility] URIC ACID 2022-07-16 04:54:00 Fernando [facility] CBC W/PLT COUNT & AUTO 2022-07-16 04:54:00 [facility] HEPATIC FUNCTION PANEL 2022-07-16 04:54:00 [facility] CBC W/PLT COUNT & AUTO 2022-07-16 04:54:00 [facility] BASIC METABOLIC PANEL 2022-07-15 05:35:00 [facility] PHOSPHORUS 2022-07-15 05:35:00 [facility] URIC ACID 2022-07-15 05:35:00 Fernando [facility] CBC W/PLT COUNT & AUTO 2022-07-15 05:35:00 [facility] HEPATIC FUNCTION PANEL 2022-07-15 05:35:00 [facility] CBC W/PLT COUNT & AUTO 2022-07-15 05:35:[address] [facility] MR PELVIS WITHOUT IV 2022-07-14 11:14:00 Edwina Rojas [facility] VANCOMYCIN LEVEL, TROUGH 2022-07-14 07:47:00 Warren Eden [facility] MRSA SCREEN 2022-07-14 05:16:00 Amilcar Main [facility] BASIC METABOLIC PANEL 2022-07-14 04:36:00 [facility] PHOSPHORUS 2022-07-14 04:36:00 [facility] URIC ACID 2022-07-14 04:36:00 Fernando [facility] CBC W/PLT COUNT & AUTO 2022-07-14 04:36:00 [facility] HEPATIC FUNCTION PANEL 2022-07-14 04:36:00 Fernando [facility] CBC W/PLT COUNT & AUTO 2022-07-14 04:36:[address] [facility] BASIC METABOLIC PANEL 2022-07-13 04:41:00 Wayant[facility] CBC W/PLT COUNT & AUTO 2022-07-13 04:41:[address] [facility] HEPATIC FUNCTION PANEL 2022-07-13 04:41:00 Fernando [facility] URIC ACID 2022-07-13 04:41:00 Fernando [facility] PHOSPHORUS 2022-07-13 04:41:00 Fernando [facility] CBC W/PLT COUNT & AUTO 2022-07-13 04:41:00 [facility] MAGNESIUM 2022-07-13 04:41:00 Eyad [facility] BASIC METABOLIC PANEL 2022-07-12 04:20:00 Wayant, [facility] CBC W/PLT COUNT & AUTO 2022-07-12 04:20:[address] [facility] HEPATIC FUNCTION PANEL 2022-07-12 04:20:00 Fernando [facility] URIC ACID 2022-07-12 04:20:00 Fernando [facility] PHOSPHORUS 2022-07-12 04:20:00 Fernando [facility] CBC W/PLT COUNT & AUTO 2022-07-12 04:20:00 [facility] BLOOD CULTURE, ROUTINE 2022-07-11 22:47:00 Kranthi Rehman [facility] ISOLATOR [place] URINALYSIS W/ REFLEX URINE 2022-07-11 22:39:00 Kranthi Rehman [facility] CULTURE Center URINE CULTURE 2022-07-11 22:39:00 Sherie [facility] BASIC METABOLIC PANEL 2022-07-11 05:40:00 Se Horton [facility] Raymon [place] CBC W/PLT COUNT & AUTO 2022-07-11 05:40:[address] [facility] HEPATIC FUNCTION PANEL 2022-07-11 05:40:00 Fernando [facility] HEPATITIS B SURFACE 2022-07-11 05:40:00 [facility] [place] HEPATITIS B SURFACE 2022-07-11 05:40:00 [facility] ANTIBODY [place] HEPATITIS C ANTIBODY 2022-07-11 05:40:00 [facility] HEPATITIS B CORE ANTIBODY, 2022-07-11 05:40:00 Norm King [facility] TOTAL Center URIC ACID 2022-07-11 05:40:00 [facility] PHOSPHORUS 2022-07-11 05:40:00 [facility] LACTATE DEHYDROGENASE 2022-07-11 05:40:00 [facility] ([facility] [place] VANCOMYCIN LEVEL, TROUGH 2022-07-11 05:40:00 Swati River [facility] CBC W/PLT COUNT & AUTO 2022-07-11 05:40:[address] [facility] CTA CHEST FOR PULMONARY 2022-07-11 05:04:00 Jamel Pittman [facility] EMBOLUS Center ECG 12-LEAD 2022-07-10 18:37:56 [facility] BASIC METABOLIC PANEL 2022-07-10 05:21:00 [facility] BLOOD CULTURE 2022-07-09 16:47:00 [facility], [facility] BLOOD CULTURE 2022-07-09 16:36:00 [facility], [facility] XR CHEST 1 VIEW PORTABLE / 2022-07-09 14:33:00 Salome, Brianne [facility] XR CHEST 1 VIEW PORTABLE / 2022-07-09 12:44:00 Salome, [facility] SARS-[facility]OV[facility] ([facility] & 2022-07-09 11:44:00 [facility], [facility] REF LABS) [place] CT BIOPSY LUNG 2022-07-09 10:30:00 [facility], [facility] CT BIOPSY LUNG 2022-07-09 10:30:00 [facility], [facility] TISSUE EXAM 2022-07-09 10:28:00 [facility] BASIC METABOLIC PANEL 2022-07-09 03:39:00 [facility] CBC (HEMOGRAM ONLY) 2022-07-09 03:39:00 [facility] URINALYSIS W/ REFLEX URINE 2022-07-08 14:10:00 [facility] BASIC METABOLIC PANEL 2022-07-08 02:16:00 [facility] CBC (HEMOGRAM ONLY) 2022-07-08 02:16:00 [facility] PT/APTT 2022-07-08 02:16:00 [facility] BASIC METABOLIC PANEL 2022-07-07 05:46:00 [facility] PT/APTT 2022-07-07 05:46:00 [facility] CBC (HEMOGRAM ONLY) 2022-07-07 05:46:00 [facility] PROCEDURE, IN 2022-07-06 16:00:00 Jacqueline [facility] NON-OPERATING ROOM SETTING Mark r MR BRAIN WITH & WITHOUT IV 2022-07-06 12:13:00 [facility] POCT-GLUCOSE METER 2022-07-06 09:14:00 [facility], [facility] BASIC METABOLIC PANEL 2022-07-06 04:58:00 [facility] PT/APTT 2022-07-06 04:58:00 [facility] CBC (HEMOGRAM ONLY) 2022-07-06 04:58:00 [facility] SARS-COV2/RT-PCR ([facility] & 2022-07-05 13:02:00 [facility], [facility] REF LABS) [place] BASIC METABOLIC PANEL 2022-07-05 03:55:00 [facility] PT/APTT 2022-07-05 03:55:00 [facility] CBC (HEMOGRAM ONLY) 2022-07-05 03:55:00 [facility] B-TYPE NATRIURETIC FACTOR 2022-07-05 03:55:00 [facility] (BNP) Center PROCEDURE, IN 2022-07-04 18:35:00 Jacqueline [facility] NON-OPERATING ROOM SETTING Mark r XR CHEST 1 VIEW PORTABLE / 2022-07-04 17:20:00 Ruth Miller [facility] BASIC METABOLIC PANEL 2022-07-04 04:07:00 [facility] CBC W/PLT COUNT & AUTO 2022-07-04 04:07:00 [facility] PROT[facility]/INR 2022-07-04 04:07:00 Edwina Rojas [facility] CBC W/PLT COUNT & AUTO 2022-07-04 04:07:00 [facility] DIFFERENTIAL [facility] BASIC METABOLIC PANEL 2022-07-03 05:16:00 [facility] CBC W/PLT COUNT & AUTO 2022-07-03 05:16:00 [facility] CBC W/PLT COUNT & AUTO 2022-07-03 05:16:00 [facility] XR CHEST 1 VIEW PORTABLE / 2022-07-02 17:47:00 Socorro, C HI [facility] BEDSIDE [facility] FL FLUORO NON-SPECIFIC UP 2022-07-02 17:45:00 Socorro, CH I [facility] TO 1 HOUR [facility] INSERTION,INTRAHEPATIC 2022-07-02 16:23:00 Socorro [facility] PORTACATH [facility] ABORH, MANUAL 2022-07-02 10:34:00 Sharri Anderson [facility] ABORH, MANUAL 2022-07-02 10:19:00 Manisha Sorto [facility] Ashia [place] FERRITIN 2022-07-02 10:18:00 [facility] IRON, TIBC, % SAT. 2022-07-02 10:18:00 [facility] (WITHOUT FERRITIN) [place] BASIC METABOLIC PANEL 2022-07-02 05:45:00 [facility] CBC W/PLT COUNT & AUTO 2022-07-02 05:45:00 [facility] CBC W/PLT COUNT & AUTO 2022-07-02 05:45:00 [facility] BASIC METABOLIC PANEL 2022-07-01 04:27:00 [facility] CBC W/PLT COUNT & AUTO 2022-07-01 04:27:00 [facility] CBC W/PLT COUNT & AUTO 2022-07-01 04:27:00 [facility] BASIC METABOLIC PANEL 2022-06-30 05:37:00 [facility] CBC W/PLT COUNT & AUTO 2022-06-30 05:37:00 [facility] CBC W/PLT COUNT & AUTO 2022-06-30 05:37:00 [facility] BASIC METABOLIC PANEL 2022-06-29 03:52:00 [facility] CBC W/PLT COUNT & AUTO 2022-06-29 03:52:00 [facility] CBC W/PLT COUNT & AUTO 2022-06-29 03:52:[address] [facility] [address] ABDOMEN/PELVIS WITH IV 2022-06-28 16:53:00 [facility] CONTRAST [place] CT CHEST WITH IV CONTRAST 2022-06-28 16:53:00 [facility] BASIC METABOLIC PANEL 2022-06-28 03:30:00 [facility] CBC W/PLT COUNT & AUTO 2022-06-28 03:30:00 [facility] CBC W/PLT COUNT & AUTO 2022-06-28 03:30:00 [facility] ALPHA FETOPROTEIN (AFP), 2022-06-27 19:29:00 [facility] TUMOR MARKER [place] HCG, QUANTITATIVE, 2022-06-27 19:29:00 [facility] [place] LACTATE DEHYDROGENASE 2022-06-27 19:29:00 [facility] ([facility]) [place] BASIC METABOLIC PANEL 2022-06-27 04:33:00 [facility]UM 2022-06-27 [facility] & AUTO 2022-06-27 04:33:00 [facility] PROTHROMBIN TIME/INR 2022-06-27 04:33:00 Se Horton [facility] CBC W/PLT COUNT & AUTO 2022-06-27 04:33:00 Se Horton [facility] DIFFERENTIAL Raymon [place] URINE CULTURE 2022-06-26 13:10:00 Maurizio Mathew [facility] URINALYSIS W/ REFLEX URINE 2022-06-26 13:10:00 Maurizio Mathew Se [facility] CULTURE Center BLOOD CULTURE 2022-06-26 13:08:00 Maurizio Mathew [facility] CBC W/PLT COUNT & AUTO 2022-06-26 13:02:00 Maurizio Mathew [facility] DIFFERENTIAL [place] CBC W/PLT COUNT & AUTO 2022-06-26 13:02:00 Maurizio Mathew [facility] DIFFERENTIAL Center SARS-COV2/INFLUENZA/RSV 2022-06-26 13:02:00 Maurizio Mathew [facility] RT-PCR Center BLOOD CULTURE 2022-06-26 13:02:00 Maurizio Mathew [facility] COMPREHENSIVE METABOLIC 2022-06-26 13:02:00 Maurizio Mathew [facility] PANEL Center PROTHROMBIN TIME/INR 2022-06-26 13:02:00 Maurizio Mathew [facility] HIGH SENSITIVITY TROPONIN 2022-06-26 13:02:00 Maurizio Mathew [facility] B-TYPE NATRIURETIC FACTOR 2022-06-26 13:02:00 Maurizio Mathew [facility] (BNP) Center LACTIC ACID, VENOUS 2022-06-26 13:02:00 Maurizio Mathew [facility] ED ECG INTERPRETATION 2022-06-26 12:34:29 Maurizio Mathew [facility] XR CHEST 1 VIEW PORTABLE / 2022-06-26 12:32:00 Maurizio Mathew Se [facility] BEDSIDE Center ECG 12-LEAD 2022-06-26 12:30:54 Unknown, Hl7 [facility] ECG 12-LEAD 2022-06-26 12:30:54 Unknown, Hl7 [facility] ECG 12-LEAD 2022-06-26 12:30:54 Unknown, Hl7 [facility] URINALYSIS 2022-06-25 03:41:00 Singer [facility] [address] ABDOMEN PELVIS W 2022-06-25 02:58:23 Singer [facility] CONTRAST [facility] Branch CT CHEST PULMONARY 2022-06-25 02:58:23 Singer [facility] ANGIOGRAM Medical Branch RAPID INFLUENZA A/B 2022-06-25 02:45:00 Singer [facility] COVID-19 (ID NOW RAPID 2022-06-25 02:45:00 Singer Ab [facility] TESTING) Medical Branch LAB ONLY COVID 2022-06-25 02:45:[address] [facility] INTERPRETATION [facility] BLOOD CULTURE SCREEN 2022-06-25 02:07:00 Ab Breaux [facility] TROPONIN I 2022-06-25 02:07:00 Singer [facility] COMP. METABOLIC PANEL 2022-06-25 02:07:00 Ab Breaux [facility] ([id number]) [facility] CBC WITH DIFF 2022-06-25 02:07:00 Singer [facility] HB ECG ROUTINE & RHYTHM 2022-06-25 02:02:41 Singer Ab [facility] STRIP Medical Branch CONSENT/REFUSAL FOR 2022-06-25 01:53:26 Doctor Unassigned, [facility] DIAGNOSIS AND TREATMENT [facility] BASIC METABOLIC PANEL (NA, 2022-06-14 12:23:00 Fina tOt [facility] K, CL, CO2, GLUCOSE, BUN, Medica l Branch CREATININE, CA) CBC WITH DIFF 2022-06-14 12:23:00 Fina Ott [facility] BASIC METABOLIC PANEL (NA, 2022-06-13 09:54:00 Ronald Patel [facility] K, CL, CO2, GLUCOSE, BUN, Medica l Branch CREATININE, CA) CBC WITH DIFF 2022-06-13 09:54:[address] [facility] BASIC METABOLIC PANEL (NA, 2022-06-12 10:41:00 Joselo lBanco [facility] K, CL, CO2, GLUCOSE, BUN, Medica l Branch CREATININE, CA) CBC WITH DIFF 2022-06-12 10:41:00 Joselo Blanco [facility] LACTIC ACID WHOLE BLOOD 2022-06-12 04:40:00 Rufus White [facility] BLOOD CULTURE SCREEN 2022-06-12 04:39:00 Rufus White [facility] BASIC METABOLIC PANEL (NA, 2022-06-12 04:37:00 Rufus White [facility] K, CL, CO2, GLUCOSE, BUN, Medica l Branch CREATININE, CA) CBC WITH DIFF 2022-06-12 04:37:00 Rufus White [facility] URINALYSIS 2022-06-12 04:37:00 Rufus White [facility] URINE CULTURE 2022-06-12 04:37:00 Rufus White [facility] AUTHORIZATION TO RELEASE 2022-06-07 06:01:00 Doctor Unassdeidra, [facility] PHI TO [facility] [place] LACTIC ACID WHOLE BLOOD 2022-05-04 07:58:00 Fina Tejada [facility] CT ABDOMEN PELVIS W 2022-05-04 07:53:24 Fina Tejada [facility] CONTRAST [facility] URINALYSIS 2022-05-04 07:21:00 Fina Tejada [facility] COMP. METABOLIC PANEL 2022-05-04 06:45:00 Fina Tejada [facility] ([id number]) [facility] [place] CBC WITH DIFF 2022-05-04 06:45:00 Fina Tejada [facility] CONSENT/REFUSAL FOR 2022-05-04 05:28:53 Doctor Unassigned, [facility] DIAGNOSIS AND TREATMENT [facility] [place] URINE CULTURE 2022-05-02 20:05:[address] [facility] MAGNESIUM 2022-04-22 08:55:00 Joselo Blanco [facility] BASIC METABOLIC PANEL (NA, 2022-04-22 08:55:00 Fina Ott [facility] K, CL, CO2, GLUCOSE, BUN, Medica l Branch CREATININE, CA) CBC WITH DIFF 2022-04-22 08:55:00 Fina Ott [facility] BLOOD CULTURE SCREEN 2022-04-21 19:53:00 Joselo Blanco [facility] BASIC METABOLIC PANEL (NA, 2022-04-21 09:50:00 Fina Ott [facility] K, CL, CO2, GLUCOSE, BUN, Medica l Branch CREATININE, CA) CBC WITH DIFF 2022-04-21 09:50:00 Tru Fina [facility] POCT GLUCOSE (AUTOMATED) 2022-04-20 12:43:00 Joselo Blanco [facility] POCT GLUCOSE (AUTOMATED) 2022-04-20 09:29:00 Joselo Blanco [facility] BASIC METABOLIC PANEL (NA, 2022-04-20 09:03:00 Joselo Blanco [facility] K, CL, CO2, GLUCOSE, BUN, Medica l Branch CREATININE, CA) ALPHA FETOPROTEIN 2022-04-20 09:03:[address] [facility] CBC WITH DIFF 2022-04-20 09:03:00 Joselo Blanco [facility] POCT GLUCOSE (AUTOMATED) 2022-04-20 00:38:00 Joselo Blanco [facility] LACTIC ACID WHOLE BLOOD 2022-04-19 18:51:00 Janessa Persaud [facility] CT ABDOMEN PELVIS W 2022-04-19 17:37:00 Janessa Persaud [facility] LACTIC ACID WHOLE BLOOD 2022-04-19 15:14:00 Janessa Persaud [facility] BLOOD CULTURE SCREEN 2022-04-19 15:12:00 Janessa Persaud [facility] COMP. METABOLIC PANEL 2022-04-19 15:12:00 Janessa Persaud [facility] [id number] CBC WITH DIFF 2022-04-19 15:12:[address] [facility] URINALYSIS 2022-04-19 15:12:[address] [facility] URINE CULTURE 2022-04-19 15:12:[address] [facility] BLOOD CULTURE WORKUP 2022-04-19 15:12:00 Janessa Persaud [facility] GRAM NEGATIVE BLOOD 2022-04-19 15:12:00 Janessa Persaud [facility] PATHOGENS DNA [facility] PROBE-ANAEROBIC CONSENT/REFUSAL FOR 2022-04-19 14:38:43 Doctor Unassigned, [facility] DIAGNOSIS AND TREATMENT [facility] CRITICAL CARE 2022-04-19 14:38:[address] [facility] DME/SUPPLY JUSTIFICATION 2022-04-11 05:01:00 Doctor Unassdeidra, [facility] Name [facility] AUTHORIZATION FOR RELEASE 2022-03-30 05:01:00 Doctor Unasana[facility] MAGNESIUM 2022-03-21 09:56:00 Perico Marsh [facility] CBC WITHOUT DIFF 2022-03-21 09:56:00 Perico Marsh [facility] BLOOD CULTURE SCREEN 2022-03-20 18:35:00 Perico Marsh [facility] BASIC METABOLIC PANEL (NA, 2022-03-20 09:51:00 BilPerico koo ad [facility] K, CL, CO2, GLUCOSE, BUN, Medica l Branch CREATININE, CA) MAGNESIUM 2022-03-20 09:51:00 Perico Marsh [facility] CBC WITHOUT DIFF 2022-03-20 09:51:00 Perico Marsh [facility] PREALBUMIN, SERUM 2022-03-20 09:51:00 Victory[facility] PEL[facility] W CONTRAST 2022-03-20 03:32:00 BilPerico koo [facility] BASIC METABOLIC PANEL (NA, 2022-03-17 09:08:00 BilPerico koo [facility] K, CL, CO2, GLUCOSE, BUN, Medica l Branch CREATININE, CA) MAGNESIUM 2022-03-17 09:08:00 BilPerico koo [facility] CBC WITHOUT DIFF 2022-03-17 09:08:00 BilPerico koo [facility] IR BIOPSY BONE DEEP WITH 2022 20:08:00 Herminia Razo [facility] SURGICAL PATHOLOGY EXAM 2022 19:57:00 Lennie [facility] IR DRAINAGE BY CATHETER 2022 19:50:00 Lennie [facility] PERITONEAL OR [facility] [place] RETROPERITONEAL BODY FLUID 2022 19:48:00 Lennie [facility] CULTURE(AEROBIC/ANAEROBIC) [facility] COMP. METABOLIC PANEL 2022 10:23:00 [id number] CBC WITH DIFF 2022 10:23:00 [place] [facility] MAGNESIUM 2022 10:23:00 [facility] CT ABDOMEN PELVIS W 2022-03-15 13:49:58 BilPerico koo [facility] CONTRAST [facility] CBC WITH DIFF 2022-03-15 10:08:00 BilPerico koo [facility] BASIC METABOLIC PANEL (NA, 2022-03-15 10:08:00 BilPerico koo [facility] K, CL, CO2, GLUCOSE, BUN, Medica l Branch CREATININE, CA) MAGNESIUM 2022-03-15 10:08:00 BilPerico koo [facility] HEPATIC FUNCTION PANEL 2022-03-15 10:08:00 Ricardo Marshall [facility] ([id number]) (ALB,T.PRO,[facility] T,BU/BC,ALT,AST,ALK PHOS) PREALBUMIN, SERUM 2022-03-15 10:08:00 Joanna, Ricardo [facility] MR PELVIS W WO CONTRAST 2022-03-15 09:30:[address] [facility] URINALYSIS 2022-03-14 22:50:00 Perico Marsh [facility] URINE CULTURE 2022-03-14 22:50:00 BilPreico koo [facility] BLOOD CULTURE SCREEN 2022-03-14 22:49:00 [facility] 2022-03-14 22:49:00 BilPerico koo [facility] BLOOD CULTURE SCREEN 2022-03-14 22:48:00 BilPerico koo [facility] BLOOD CULTURE WORKUP 2022-03-14 22:48:00 BilPerico koo [facility] CBC WITH DIFF 2022-03-14 19:43:00 Perico Marsh [facility] BASIC METABOLIC PANEL (NA, 2022-03-14 19:43:00 Perico Marsh [facility] K, CL, CO2, GLUCOSE, BUN, Medica l Branch CREATININE, CA) SEDIMENTATION RATE 2022-03-14 19:43:00 Perico Marsh [facility] C-REACTIVE PROTEIN 2022-03-14 19:43:00 Perico Marsh [facility] HOSPITAL ADMISSION 2022-03-14 05:01:00 Doctor Unassigned, [facility] SURGICAL PATHOLOGY EXAM 2022-03-01 17:39:00 Thee Downing [facility] INTUBATION 2022-03-01 17:05:[address] [facility] RADICAL ORCHIECTOMY 2022-03-01 16:44:00 Thee Downing [facility] DAY SURGERY - ADC 2022-03-01 05:01:00 Doctor Unassigned, [facility] [place] [facility] COVID-19 (ID NOW RAPID 2022-02-28 15:35:00 [facility] TESTING) Medical Branch LAB ONLY COVID 2022-02-28 15:35:00 [facility] INTERPRETATION [facility] CONSENT/REFUSAL FOR 2022-02-28 15:28:50 Doctor Dagmar, [facility] DIAGNOSIS AND TREATMENT [facility] [place] ASSIGNMENT OF BENEFITS 2022-02-28 15:28:29 Doctor Unassdeidra, [facility] Name [facility] LACTATE DEHYDROGENASE 2022-02-22 18:11:00 [facility] ALPHA FETOPROTEIN 2022-02-22 18:11:00 [facility] TOTAL BETA HCG ASSAY 2022-02-22 18:11:00 [facility] COMP. METABOLIC PANEL 2022-02-22 18:11:00 [facility] ([id number]) Medical Branch DISCLOSURE AND CONSENT, 2022-02-22 05:01:00 Doctor Dagmar [facility] MEDICAL AND SURGICAL [facility] PROCEDURES US SCROTUM AND CONTENTS 2022-02-17 00:06:00 Gutierrez [facility] URINE CULTURE 2022-02-12 21:19:00 [facility] DME/SUPPLY JUSTIFICATION 2022-02-12 05:01:00 Doctor Dagmar [facility] URINE CULTURE 2022-01-25 19:01:00 Gutierrez [facility] ECG 12-LEAD 2021-04-20 08:11:57 Unknown, [facility] ECG 12-LEAD 2021-04-20 08:11:57 Unknown, [facility] CBC W/PLT COUNT & AUTO 2021-04-20 05:25:00 Ruel Flores [facility] BASIC METABOLIC PANEL (7) 2021-04-20 05:25:00 Halina Flores [facility] CBC W/PLT COUNT & AUTO 2021-04-20 05:25:00 Ruel Flores [facility] DIFFERENTIAL Center CBC W/PLT COUNT & AUTO 2021-04-19 05:28:00 Ruel Flores [facility] BASIC METABOLIC PANEL (7) 2021-04-19 05:28:00 Halina Flores [facility] CBC W/PLT COUNT & AUTO 2021-04-19 05:28:00 Ruel Flores [facility] STD PANEL - CT/GC RNA 2021-04-18 10:18:00 Indu Gambino [facility] ALPHA FETOPROTEIN (AFP), 2021-04-18 10:17:00 [place] [facility] TUMOR MARKER [facility] CBC W/PLT COUNT & AUTO 2021-04-18 05:15:00 Ruel Flores [facility] COMPREHENSIVE METABOLIC 2021-04-18 05:15:00 Ruel Flores [facility] PANEL Center HC LAB HIV-1 AG W/HIV-1&2 2021-04-18 05:15:00 Halina Flores [facility] AB Center RPR 2021-04-18 05:15:[address] [facility] HEPATITIS PANEL, ACUTE 2021-04-18 05:15:00 [facility] LACTATE DEHYDROGENASE 2021-04-18 05:15:00 [facility] HCG, QUANTITATIVE, 2021-04-18 05:15:00 [facility] CBC W/PLT COUNT & AUTO 2021-04-18 05:15:00 Ruel Flores [facility] (CELLAVISION MANUAL DIFF) 2021-04-18 05:15:00 Hernandoselect [facility] shawHalina simons [facility] Plan of Care Planned Activity Planned Date Details Comments Source Future Scheduled Test 2023-07-[address] [facility] 00:[facility]00 [facility] Scre[facility] (12+) [code = Tobacco Cessation Counseling and Screening (12+)] Future Scheduled Test 2023-07-[address] [facility] 00:00:00 [facility] Screening (12+) [code = Tobacco Cessation Counseling and Screening (12+)] Future Scheduled Test 2023-07-[address] [facility] 00:00:00 [facility] Screening (12+) [code = Tobacco Cessation Counseling and Screening (12+)] Future Scheduled Test 2023-06-[address] [facility] 00:00:00 [facility] r Screening (12+) [code = Tobacco Cessation Counseling and Screening (12+)] Future Scheduled Test 2023-06-[address] [facility] 00:00:00 [facility] r Screening (12+) [code = Tobacco Cessation Counseling and Screening (12+)] Future Scheduled Test 2023-06-[address] [facility] 00:00:00 [facility] r Screening (12+) [code = Tobacco Cessation Counseling and Screening (12+)] Future Scheduled Test 2022-07-[address] [facility] 00:00:00 (12+) [code = Medical Center DEPRESSION SCREENING (12+)] Future Scheduled Test 2022-07-[address] [facility] 00:00:00 (12+) [code = Medical Center DEPRESSION SCREENING (12+)] Future Scheduled Test 2022-07-[address] [facility] 00:00:00 (12+) [code = Medical Center DEPRESSION SCREENING (12+)] Future Scheduled Test 2022-07-[address] [facility] 00:00:00 (12+) [code = Medical Center DEPRESSION SCREENING (12+)] Future Scheduled Test 2022-07-[address] [facility] 00:00:00 (12+) [code = Medical Center DEPRESSION SCREENING (12+)] Future Scheduled Test 2022-04-[address] [facility] 00:00:00 [facility] Cente r Screening (12+) [code = Tobacco Cessation Counseling and Screening (12+)] Future Scheduled Test 2022-04-[address] [facility] 00:00:00 [facility] Cent[facility] r Screening (12+) [code = Tobacco Cessation Counseling and Screening (12+)] Future Scheduled Test 2022-04-[address] [facility] 00:00:00 [facility] Cent[facility] r Screening (12+) [code = Tobacco Cessation Counseling and Screening (12+)] Future Scheduled Test 2022-03-08 INFLUENZA VACCINE (#1) [facility] 00:00:00 [code = INFLUENZA Medical Ce nter VACCINE (#1)] Future Scheduled Test 2022-03-08 INFLUENZA VACCINE (#1) [facility] 00:00:00 [code = INFLUENZA Medical Ce nter VACCINE (#1)] Future Scheduled Test 2022-03-08 INFLUENZA VACCINE (#1) [facility] 00:00:00 [code = INFLUENZA Medical Ce nter VACCINE (#1)] Future Scheduled Test 2022-03-08 INFLUENZA VACCINE (#1) [facility] 00:00:00 [code = INFLUENZA Medical Ce nter VACCINE (#1)] Future Scheduled Test 2022-03-08 INFLUENZA VACCINE (#1) [facility] 00:00:00 [code = INFLUENZA Medical Ce nter VACCINE (#1)] Future Scheduled Test 2022-03-08 INFLUENZA VACCINE (#1) [facility] 00:00:00 [code = INFLUENZA Medical Ce nter VACCINE (#1)] Future Scheduled Test 2022-03-08 INFLUENZA VACCINE (#1) [facility] 00:00:00 [code = INFLUENZA Medical Ce nter VACCINE (#1)] Future Scheduled Test 2022-03-08 INFLUENZA VACCINE (#1) [facility] 00:00:00 [code = INFLUENZA Medical Ce nter VACCINE (#1)] Future Scheduled Test 2022-03-08 INFLUENZA VACCINE (#1) [facility] 00:00:00 [code = INFLUENZA Medical Ce nter VACCINE (#1)] Future Scheduled Test 2022-03-08 INFLUENZA VACCINE (#1) [facility] 00:00:00 [code = INFLUENZA Medical Ce nter VACCINE (#1)] Future Scheduled Test 2022-03-08 INFLUENZA VACCINE (#1) [facility] 00:00:00 [code = INFLUENZA Medical Ce nter VACCINE (#1)] Future Scheduled Test 2021-07-[address] [facility] 00:00:00 (12+) [code = Medical Center DEPRESSION SCREENING (12+)] Future Scheduled Test 2021-07-[address] [facility] 00:00:00 (12+) [code = Medical Center DEPRESSION SCREENING (12+)] Future Scheduled Test 2021-07-[address] [facility] 00:00:00 (12+) [code = Medical Center DEPRESSION SCREENING (12+)] Future Scheduled Test 2021-07-[address] [facility] 00:00:00 (12+) [code = Medical Center DEPRESSION SCREENING (12+)] Future Scheduled Test 2021-07-[address] [facility] 00:00:00 (12+) [code = Medical Center DEPRESSION SCREENING (12+)] Future Scheduled Test 2021-07-[address] [facility] 00:00:00 (12+) [code = Medical Center DEPRESSION SCREENING (12+)] Future Scheduled Test [address] [facility] 00:00:00 (procedure) [code = [facility] [id number]] Future Scheduled Test [address] [facility] 00:00:00 (procedure) [code = [facility] [id number]] Future Scheduled Test [address] [facility] 00:00:00 (procedure) [code = [facility] [id number]] Future Scheduled Test [address] [facility] 00:00:00 (procedure) [code = [facility] [id number]] Future Scheduled Test [address] [facility] 00:00:00 (procedure) [code = [facility] [id number]] Future Scheduled Test [address] [facility] 00:00:00 (procedure) [code = [facility] [id number]] Future Scheduled Test [address] [facility] 00:00:00 (procedure) [code = [facility] [id number]] Future Scheduled Test [address] [facility] 00:00:00 (procedure) [code = [facility] [id number]] Future Scheduled Test [address] [facility] 00:00:00 (procedure) [code = [facility] [id number]] Future Scheduled Test [address] [facility] 00:00:00 (procedure) [code = Medical Center [id number]] Future Scheduled Test [address] [facility] 00:00:00 (procedure) [code = [facility] [id number]] Future Scheduled Test 2004 DTAP/TDAP/TD VACCINES [facility] 00:00:00 (1 - Tdap) [code = Medical C enter DTAP/TDAP/TD VACCINES (1 - Tdap)] Future Scheduled Test 2004 DTAP/TDAP/TD VACCINES [facility] 00:00:00 (1 - Tdap) [code = Medical C enter DTAP/TDAP/TD VACCINES (1 - Tdap)] Future Scheduled Test 2004 DTAP/TDAP/TD VACCINES [facility] 00:00:00 (1 - Tdap) [code = Medical C enter DTAP/TDAP/TD VACCINES (1 - Tdap)] Future Scheduled Test 2004 DTAP/TDAP/TD VACCINES [facility] 00:00:00 (1 - Tdap) [code = Medical C enter DTAP/TDAP/TD VACCINES (1 - Tdap)] Future Scheduled Test 2004 DTAP/TDAP/TD VACCINES [facility] 00:00:00 (1 - Tdap) [code = Medical C enter DTAP/TDAP/TD VACCINES (1 - Tdap)] Future Scheduled Test 2004 DTAP/TDAP/TD VACCINES [facility] 00:00:00 (1 - Tdap) [code = Medical C enter DTAP/TDAP/TD VACCINES (1 - Tdap)] Future Scheduled Test 2004 DTAP/TDAP/TD VACCINES [facility] 00:00:00 (1 - Tdap) [code = Medical C enter DTAP/TDAP/TD VACCINES (1 - Tdap)] Future Scheduled Test 2004 DTAP/TDAP/TD VACCINES [facility] 00:00:00 (1 - Tdap) [code = Medical C enter DTAP/TDAP/TD VACCINES (1 - Tdap)] Future Scheduled Test 2004 DTAP/TDAP/TD VACCINES [facility] 00:00:00 (1 - Tdap) [code = Medical C enter DTAP/TDAP/TD VACCINES (1 - Tdap)] Future Scheduled Test 2004 DTAP/TDAP/TD VACCINES [facility] 00:00:00 (1 - Tdap) [code = Medical C enter DTAP/TDAP/TD VACCINES (1 - Tdap)] Future Scheduled Test 2004 DTAP/TDAP/TD VACCINES [facility] 00:00:00 (1 - Tdap) [code = Medical C enter DTAP/TDAP/TD VACCINES (1 - Tdap)] Future Scheduled Test [address] [facility] 00:00:00 0-64 YRS (1 - PCV) Medical C enter [code = PNEUMOCOCCAL VACCINE 0-64 YRS (1 - PCV)] Future Scheduled Test [address] [facility] 00:00:00 0-64 YRS (1 - PCV) Medical C enter [code = PNEUMOCOCCAL VACCINE 0-64 YRS (1 - PCV)] Future Scheduled Test [address] [facility] 00:00:00 0-64 YRS (1 - PCV) Medical C enter [code = PNEUMOCOCCAL VACCINE 0-64 YRS (1 - PCV)] Future Scheduled Test [address] [facility] 00:00:00 0-64 YRS (1 - PCV) Medical C enter [code = PNEUMOCOCCAL VACCINE 0-64 YRS (1 - PCV)] Future Scheduled Test [address] [facility] 00:00:00 0-64 YRS (1 - PCV) Medical C enter [code = PNEUMOCOCCAL VACCINE 0-64 YRS (1 - PCV)] Future Scheduled Test [address] [facility] 00:00:00 0-64 YRS (1 - PCV) Medical C enter [code = PNEUMOCOCCAL VACCINE 0-64 YRS (1 - PCV)] Future Scheduled Test 1985 COVID-19 VACCINE (#1) [facility] 00:00:00 [code = COVID-[address] VACCINE (#1)] Future Scheduled Test 1985 COVID-19 VACCINE (#1) [facility] 00:00:00 [code = COVID-[address] VACCINE (#1)] Future Scheduled Test 1985 COVID-19 VACCINE (#1) [facility] 00:00:00 [code = COVID-[address] VACCINE (#1)] Future Scheduled Test 1985 COVID-19 VACCINE (#1) [facility] 00:00:00 [code = COVID-[address] VACCINE (#1)] Future Scheduled Test 1985 COVID-19 VACCINE (#1) [facility] 00:00:00 [code = COVID-[address] VACCINE (#1)] Future Scheduled Test 1985 COVID-19 VACCINE (#1) [facility] 00:00:00 [code = COVID-[address] VACCINE (#1)] Future Scheduled Test 1985 COVID-19 VACCINE (#1) [facility] 00:00:00 [code = COVID-[address] VACCINE (#1)] Future Scheduled Test 1985 COVID-19 VACCINE (#1) [facility] 00:00:00 [code = COVID-[address] VACCINE (#1)] Future Scheduled Test 1985 COVID-19 VACCINE (#1) [facility] 00:00:00 [code = COVID-[address] VACCINE (#1)] Future Scheduled Test 1985 COVID-19 VACCINE (#1) [facility] 00:00:00 [code = COVID-[address] VACCINE (#1)] Future Scheduled Test 1985 COVID-19 VACCINE (#1) [facility] 00:00:00 [code = COVID-[address] VACCINE (#1)] Future Appointment 2022-08-10 Chad Collazo MD, [facility] 00:00:00 [facility] [place] [address]; Fam[address] [facility] [address], [place] [address] Encounters Start End Encounter Admission Attending Care Care Encounter Source Date/Time Date/Time Type Type Clinicians Facility Department ID 2022-03-14 Inpatient U NAOMY [facility] [id number] Univers 11:55:00 TIM phipps [facility] 2022-08-06 2022-08-06 Outpatient Je RUIZ [facility] [id number] Univers 13:00:00 13:00:00 ADRIAN phipps [facility] 2022-07-31 2022-07-31 Outpatient FRANKO OLIVA [facility] [id number] [facility] [place] 11:58:02 14:24:59 Ruth 2022-07-24 2022-07-27 Inpatient ER EDWINA ROJAS [facility] Emergency [id number] [facility] 20:58:00 14:21:00 2022-07-24 2022-07-27 [facility] [id number] 20:58:00 14:21:00 Encounter Enid [facility], Edw[facility] er Efrain Fontenot Lamberto 2022-07-24 2022-07-27 [facility] [id number] 20:58:00 14:21:00 Encounter Enid Butt[facility] Efrain Fontenot 2022-07-24 2022-07-24 Orders [facility] [id number] 00:00:00 00:00:00 Only [facility] 2022-07-24 2022-07-24 Travel [facility] [id number] [facility] 00:[facility]00 00:00:00 [facility] 2022-07-24 2022-07-24 Orders [facility] [id number] 00:00:00 00:00:00 Only [facility] 2022-07-24 2022-07-24 Travel [facility] [id number] [facility] 00:[facility]00 00:00:00 [facility] 2022-07-19 2022-07-19 Orders Norm King [facility] [id number] 00:00:00 00:00:00 Only [facility] 2022-07-19 2022-07-19 Orders Norm King [facility] [id number] 00:00:00 00:00:00 Only [facility] 2022-06-26 2022-07-18 Inpatient ER [facility] Emergency [id number] [facility] 12:22:00 13:33:00 SENTHIL 2022-06-26 2022-07-18 [facility] Maurizio Mathew [facility] [id number] 12:22:00 13:33:00 Encounter Carol Beth Thomson, [facility], [facility], Jamel Wagner, Uriel Boyd, Senthil Marvin 2022-06-26 2022-07-18 [facility] Maurizio aMthew [facility] [id number] 12:22:00 13:33:00 Encounter Carol Beth Goodson, [facility], [facility], Jamelgeorge Wagner, Uriel Boyd, Senthil Marvin 2022-07-13 2022-07-13 Outpatient R ALISE MUÑOZ [facility] [id number] Univers 10:40:00 10:40:00 ity of [facility] 2022-07-12 2022-07-12 Telephone [place] [id number] Univers 00:00:00 00:00:00 Y HEALTH [id number] i ty of [facility] [id number] [address] 2022-07-11 2022-07-11 [facility]phone [facility] [id number] Univers 00:00:00 00:00:00 Gabriella A HEALTH [id number] i ty of [place] [id number] Tamir as BRIGETTE?BLEA [id number] [address] MEDICAL OFFICE BUILDING 2022-07-07 2022-07-07 Documentat Sukhwinder [facility] [id number] 00:00:00 00:00:00 [facility] 2022-07-07 2022-07-07 Documentat Sukhwinder [facility] [id number] 00:00:00 00:00:00 ion [facility] 2022-07-06 2022-07-06 Anesthesia Johnathan Hernandez [facility] [id number] 10:50:00 12:43:00 Event Rocael [facility] 2022-07-06 2022-07-06 Anesthesia Johnathan Hernandez [facility] [id number] 10:50:00 12:43:00 Event Rocael [facility] 2022-07-06 2022-07-06 Outpatient R ALISE MUÑOZ [facility] [id number] Univers 10:00:00 10:00:00 [facility] 2022-07-06 2022-07-06 Surgery Virtual, [facility] [id number] 08:00:00 08:37:00 [facility] 2022-07-06 2022-07-06 [facility] [id number] 08:00:00 08:37:00 [facility] 2022-07-05 2022-07-[address] [facility] [id number] [facility] 00:00:00 00:00:00 HEALTH [id number] i [facility] [id number] [id number] [address] 2022-07-04 2022-07-04 Anesthesia Ruth Miller [facility] [id number] 16:23:00 16:23:00 Event Marianne Weber [facility] 2022-07-04 2022-07-04 Anesthesia Ruth Miller [facility] [id number] 16:23:00 16:23:00 Event Weber Indaniloisabelle [facility] 2022-07-04 2022-07-04 Surgery Virtual, [facility] [id number] 15:30:00 16:07:00 [facility] 2022-07-04 2022-07-04 Surgery Virtual, [facility] [id number] 15:30:00 16:07:00 Surgeon [facility] 2022-07-04 2022-07-04 Telephone Per Hearn [id number] [facility] 00:00:00 00:00:00 Y HEALTH [id number] i ty of [facility] [id number] [facility] [address] 2022-07-02 2022-07-02 Anesthesia [facility] [id number] 16:38:00 18:50:00 Event [facility] 2022-07-02 2022-07-02 Anesthesia [facility] [id number] 16:38:00 18:50:00 Event [facility] 2022-07-02 2022-07-02 Surgery [facility] [id number] 16:30:00 18:01:00 l, [facility] 2022-07-02 2022-07-02 Surgery [facility] [facility] [id number] [facility] 16:30:00 18:01:00 l, [facility] 2022-06-26 2022-06-26 Outpatient [facility] [id number] [facility] [place] 12:22:00 23:59:00 [facility] 2022-06-26 2022-06-26 Outpatient VOGEL, [facility] [place] [id number] [facility] [place] 09:41:48 15:01:20 EZEKIEL [facility] 2022-06-26 2022-06-26 Outpatient [facility] [place] [id number] [facility] [place] 12:22:00 12:22:00 [facility] 2022-06-26 2022-06-26 Outpatient [facility] [place] [id number] [facility] [place] 00:00:00 12:21:00 [facility] 2022-06-26 2022-06-26 Travel [facility] [id number] [facility] 00:[facility] 00[facility]:00 [facility] 2022-06-26 2022-06-26 Orders [facility] [id number] 00:00:00 00:00:00 Only [facility] 2022-06-26 2022-06-26 Travel [facility] [id number] [facility] 00:00:00 [facility] 2022-06-26 2022-06-26 Orders [facility] [id number] 00:00:00 00:00:00 Only [facility] 2022-06-26 2022-06-26 Transition OSVALDO Trimble 1.2.840.114 [id number] Univers 00:00:00 00:00:00 of Care Sraitaximena FRANKLIN 350.1.13.10 i ty of [place] [place] [id number] [facility] [address] [place] 2022-06-24 2022-06-25 [facility] [id number] Univers 19:55:00 18:38:00 [facility] 2022-06-24 2022-06-25 [facility] Ab Breaux [facility] 1.2.840.1 14 [id number] Univers 19:55:00 18:38:00 Encounter Val LangeJANIE 350.1.13.10 it[place] [id number] [facility] [address] 2022-06-15 2022-06-15 Transition OSVALDO Ralph 1.2.840.114 [id number] [id number] Univers 00:00:00 00:00:00 of Care Elena FRANKLIN 350.1.13.10 i ty of [place] 4[place]2.7.2.[address] [place] [id number] [facility] [address] 2022-06-11 2022-06-14 [facility] [id number] Univers 22:14:00 17:27:00 JOSELO [facility] 2022-06-11 2022-06-14 [facility] Rufus White [facility] 1.2.840.11 [id number] Univers 22:14:00 17:27:00 Encounter Joselo Blanco 350.1.13.10 ity of [place] [id number] [facility] [address] [place] 2022-06-14 2022-06-14 Outpatient R [facility] [id number] Univers 11:00:00 11:00:00 GABRIELLA ity [facility] 2022-06-13 2022-06-13 [facility] 1.2.687.115 [id number] 3628 Univers 00:00:00 00:00:00 Gabriella A HEALTH 350.1.13.10 i ty of [place] 4.2.7.2.686 Tamir as BRIGETTE?BLEA [id number] [address] MEDICAL OFFICE [facility] 2022-06-07 2022-06-07 Orders Doctor LANI 1.2.840.114 [id number] Univers 00:00:00 00:00:00 Only Unassigned, ANJU 350.1.13.10 ity of [place] [facility] 4.2.7.2.[id number] [facility] [address] [place] 2022-06-07 2022-06-07 Telephone [facility] 1.2.947.490 [id number] 3451 Univers 00:00:00 00:00:00 Gabriella A HEALTH 350.1.13.10 i ty of [place] 4.2.7.2.686 Tamir as BRIGETTE?BLEA [id number] [address] MEDICAL OFFICE [facility] 2022-06-06 2022-06-06 Outpatient R JORGE, [facility] [id number] Univers 15:00:00 15:38:26 [facility] 2022-06-06 2022-06-06 [facility] 1.2.840.114 [id number] Univers 15:00:00 15:38:26 Visit Gabriella A HEALTH 350.1.13.10 i ty of [place] 4.2.7.2.686 Tamir as BRIGETTE?BLEA [id number] [facility] [address] [place] MEDICAL OFFICE BUILDING 2022-06-06 2022-06-06 Telephone Alise Muñoz [facility] 1.2.840.114 [id number] Univers 00:00:00 00:00:00 Rp Y HEALTH 350.1.13.10 i ty of [place] [id number] [place] [address] [place] 2022-06-05 2022-06-05 [facility] 1.2.268.077 2612 9248 Univers 00:00:00 00:00:00 Gabriella A HEALTH 350.1.13.10 i ty of [place] 4.2.7.2.686 Tamir as BRIGETTE?BLEA [id number] [address] MEDICAL OFFICE [facility] 2022-05-24 2022-05-24 Multidisci LANI Feliz 1.2.840.114 [id number] [id number] Univers 00:00:00 00:00:00 plinary Eran ANJU 350.1.13.10 it y of [facility] 4.2.7.2.[address] [place] [id number] [facility] [address] [place] 2022-05-23 2022-05-23 Case Per Hearn UNIVERS 1.2.840.114 9 [id number] Univers 00:00:00 00:00:00 Management Y HEALTH 350.1.13.10 ity of [place] [id number] [place] [address] [place] 2022-05-16 2022-05-16 Outpatient R DARYL [facility] [id number] Univers 10:30:00 10:30:00 YUMI upton [facility] 2022-05-14 2022-05-14 Supervisor Wood Crew [facility] UN[facility]ERSIT 1.2.840.114 9 [id number] Univers 13:30:00 13:45:00 Visit Alise Muñoz Rp Y HEALTH 350.1.13.10 it[facility] 4.2.7.2.[address] [place] [id number] [facility] [address] [place] 2022-05-14 2022-05-14 Outpatient R ALISE MUÑOZ [facility] 1042 [id number] Univers 11:40:00 12:46:49 ity of [facility] 2022-05-14 2022-05-14 Office Alise Muñoz SARA 1.2.840.114 9 [id number] Univers 11:40:00 12:46:49 Visit Rp H 350.1.13.10 it y of BUILDING 4.2.7.2.686 Tamir as [id number] [address] 2022-05-14 2022-05-14 Case Per Hearn SARA 1.2.840.114 9 [id number] Univers 00:00:00 00:00:00 Management H 350.1.13.10 ity of BUILDING 4.2.7.2.686 Tamir as [id number] [address] 2022-05-04 2022-05-04 Emergency X CHATO [facility] ERT [id number] Univers 00:39:00 04:59:00 JOSE JUAN phipps [facility] 2022-05-04 2022-05-04 Emergency Fina Tejada [facility] 1.2.840.1 14 [id number] Univers 00:39:00 04:59:00 Jose Juan Ya [place] 350.1.13.10 ity of [place] 4.2.7.2.686 [place] [facility] [phone] [address] 2022-05-02 2022-05-02 Supervisor Wood [employer] Lab, Ang - Db [facility] 1.2.840.1 14 [id number] Univers 14:45:00 15:00:00 Visit Gabriella Patel 350.1.13.10 ity of [place] 4.2.7.2.686 Tamir as BRIGETTE?BLEA [id number] [address] MEDICAL OFFICE BUILDING 2022-05-02 2022-05-02 Outpatient R JORGE [facility] [id number] Univers 14:00:00 14:47:36 GABRIELLA phipps [facility] 2022-05-02 2022-05-02 Office Jorge [facility] 1.2.840.114 [id number] Univers 14:00:00 14:47:36 Visit Gabriella MALLOY 350.1.13.10 i ty of [place] 4.2.7.2.686 Tamir as BRIGETTE?BLEA [id number] Mi martha NAQVI [address] [place] [address] MEDICAL OFFICE BUILDING 2022-04-27 2022-04-27 Outpatient R JORGE, [facility] [id number] Univers 11:00:00 11:00:00 GABRIELLA phipps [facility] 2022-04-24 2022-04-24 Transition OSVALDO Ralph 1.2.840.114 [id number] Univers 00:00:00 00:00:00 of Care Elena FRANKLIN 350.1.13.10 i ty of [place] 4.2.7.2.[address] [id number] [facility] [address] [place] 2022-04-24 2022-04-24 Telephone Per Hearn 1.2.840.114 [id number] Univers 00:00:00 00:00:00 H 350.1.13.10 it y of BUILDING 4.2.7.2.686 Tamir as [id number] [address] 2022-04-19 2022-04-22 Inpatient X [facility] [id number] Univers 09:48:00 16:30:00 JOSELO moise [facility] 2022-04-19 2022-04-22 [facility] 1.2.840. 114 [id number] Univers 09:48:00 16:30:00 Encounter Joselo Blanco 350.1.13.10 ity of [place] [id number] [facility] [address] [place] 2022-04-19 2022-04-19 Telephone Alise Muñoz 1.2.840.114 [id number] Univers 00:00:00 00:00:00 Rp H 350.1.13.10 it y of BUILDING 4.2.7.2.686 Tamir as [id number] [place] [address] [place] 2022-04-16 2022-04-16 Outpatient R JOSEPH, [facility] [id number] Univers 13:00:00 14:00:58 ADRIAN phipps of [facility] 2022-04-16 2022-04-16 Office [facility] 1.2.840.114 [id number] Univers 13:00:00 14:00:58 Visit Adrian RENEE 350.1.13.10 ity of [place] [id number] Mi dical [facility] 201 [facility] 2022-04-11 2022-04-11 Orders Doctor LANI 1.2.840.114 [id number] Univers 00:00:00 00:00:00 Only Unassigned, ANJU 350.1.13.10 ity of [place] [facility] 4.2.7.2.686 Tamir as [id number] [address] 2022-04-05 2022-04-05 Outpatient R SALINA [facility] [id number] Univers 13:45:00 14:11:53 THEE [facility] 2022-04-05 2022-04-05 Office [facility] 1.2.840.114 [id number] Univers 13:45:00 14:11:53 Visit Theearnav RENEE 350.1.13.10 i ty of [place] [id number] [facility] 204 [facility] 2022-04-04 2022-04-04 Supervisor Wood Crew Lab, Ang - Db [facility] 1.2.840.1 14 [id number] Univers 11:30:00 11:45:00 Visit Gabriella Patel 350.1.13.10 ity of [place] 4.2.7.2.686 Tamir as BRIGETTE?BLEA [id number] [facility] [address] [place] MEDICAL OFFICE BUILDING 2022-04-04 2022-04-04 Outpatient R JORGE [facility] [id number] Univers 11:00:00 11:18:52 GABRIELLA phipps [facility] 2022-04-04 2022-04-04 Office [facility] 1.2.840.114 [id number] Univers 11:00:00 11:18:52 Visit Gabriella MALLOY 350.1.13.10 i ty of [facility] 4.2.7.2.686 Tamir as BRIGETTE?BLEA [id number] Mi dical DONYA [address] [place] MEDICAL OFFICE [facility] 2022-03-30 2022-03-30 Outpatient R KEVYN MUÑOZXimena [facility] [id number] [id number] Univers 12:00:00 13:49:33 ity of [facility] 2022-03-30 2022-03-30 Office Alise Muñoz SARA 1.2.840.114 9 [id number] Univers 12:00:00 13:49:33 Visit Rp H 350.1.13.10 it y of [facility] 4.2.7.2.[id number] [facility] [address] [place] 2022-03-30 2022-03-30 Orders Doctor LANI 1.2.840.114 [id number] Univers 00:00:00 00:00:00 Only Unassigned, ANJU 350.1.13.10 ity of [place] [facility] 4.2.7.2.[address] [facility] [address] [place] 2022-03-28 2022-03-28 Telephone [facility] 1.2.840.114 [id number] Univers 00:00:00 00:00:00 Theearnav RENEE 350.1.13.10 i ty [facility] 4.2.7.2.[place] 413.9024176 Mi dical NAL 204 [facility] 2022-03-22 2022-03-22 Transition Ramo, 1.2.840.9 [id number] Univers 00:00:00 00:00:00 of Care Elena Reyes 00653.1.1 ity of 3.104.2.7 [place] .3.824124 Medica l .[address] [place] 2022-03-14 2022-03-21 Inpatient U NAOMY [facility] ERIN [id number] Univers 11:55:00 15:30:00 TIM ity of [facility] 2022-03-14 2022-03-21 Hospital Naomy, 1.2.840.0 [id number] 4369 Univers 11:55:00 15:30:00 Encounter Tim 78953.1.1 it y of 3.104.2.7 [place] .3.668794 Medica l .8 [address] 2022-03-14 2022-03-14 Travel 1.2.840.1 1.2.130.011 6916 3120 Univers 00:00:00 00:00:00 71382.1.1 350.1.13.10 ity of 3.104.2.7 4.[place]7.3.698 [place] .3.632275 084.8 Medica l .8 [place] 2022-03-09 2022-03-09 Telephone [facility] 1.2.840.0 [id number] Univers 00:00:00 00:00:00 Thee 37049.1.1 ity of 3.104.2.7 [place] .3.874529 Medica l .[address] [place] 2022-03-05 2022-03-05 Outpatient R [facility] [id number] Univers 13:00:00 13:00:00 ADRIAN ity [facility] 2022-03-01 2022-03-01 Out[facility] SU[facility] [id number] Univers 08:43:00 14:19:00 THEE ity [facility] 2022-03-01 2022-03-01 [facility] 1.2.349.644 7387 4181 Univers 08:43:00 14:19:00 Encounter Thee RENEE 350.1.13.10 ity of [facility] 4.2.7.2.[place] SURGICAL 650.0645996 [facility] CENTER [address] [place] 2022-03-01 2022-03-01 [facility] 1.2.840.6 [id number] 959 22918 Univers 08:43:00 14:19:00 Encounter Thee 98128.1.1 it y of 3.104.2.7 [place] .3.153298 Medica l .8 [place] 2022-03-01 2022-03-01 Anesthesia Lani Callahan 1.2.840.1 [id number] [id number] Univers 12:00:00 13:03:00 Event Alviza, Shirnyl T 22830.1.1 ity of 3.104.2.7 [place] .3.492111 Medica l .8 [place] 2022-03-01 2022-03-01 Surgery [facility] 1.2.840.114 [id number] Univers 11:15:00 12:55:00 [facility] 350.1.13.10 i ty of [place] 4.2.7.2.686 [facility] 991.5155858 Med ical CENTER [address] 2022-03-01 2022-03-01 Surgery [facility], 1.2.840.7 [id number] 9595 3358 Univers 11:15:00 12:55:00 Thee 56117.1.1 ity of 3.104.2.7 [place] .3.981998 Medica l .8 [place] 2022-03-01 2022-03-01 Telephone [facility] 1.2.840.114 961 [id number] Univers 00:00:00 00:00:00 [facility] 350.1.13.10 it y of CANCER 4.2.7.2.686 [facility] - [id number] [facility] [address] 2022-03-01 2022-03-01 Telephone [facility], 1.2.840.9 [id number] Univers 00:00:00 00:00:00 Thee 75539.1.1 ity of 3.104.2.7 [place] .3.329322 Medica l .8 [place] 2022-02-28 2022-02-28 Laboratory Only, Adc Test [facility] 1.2.840. 114 [id number] Univers 10:15:00 10:30:00 Only Maurizio Carpenter 350.1.13.10 ity of [place] 4.2.7.2.686 [facility] 677.6734797 [facility] jd [address] 2022-02-28 2022-02-28 Laboratory Maurizio Carpenter 1.2.840.8 534 [id number] Univers 10:15:00 10:30:00 Only Only, Adc Test 82727.1.1 ity of 3.104.2.7 [place] .3.973285 Medica l .8 [place] 2022-02-28 2022-02-28 Outpatient R KALLIE [facility] [id number] Univers 10:15:00 10:15:00 [facility]IZIO [facility] 2022-02-23 2022-02-23 Travel 1.2.840.1 1.2.601.335 2964 2385 Univers 00:00:00 00:00:00 25075.1.1 350.1.13.10 ity of 3.104.2.7 4.2.7.3.698 [place] .3.525662 084.8 Medica l .8 [place] 2022-02-22 2022-02-22 Supervisor Wood Crew 2, Adc Lab [facility] 1.2.840.114 [id number] Univers 13:15:00 13:30:00 Visit Thee Downing 350.1.13.10 ity of [facility] 4.2.7.2.[place] 425.8366917 Mi dical NAL 353 [facility] 2022-02-22 2022-02-22 Supervisor Wood Crew Thee Downing 1.2.840.3 [id number] 8940 [id number] Univers 13:15:00 13:30:00 Visit 2, Adc Lab 74767.1.1 i ty of 3.104.2.7 [place] .3.797110 Medica l .8 [place] 2022-02-22 2022-02-22 Outpatient R SALIN[facility]LECT [facility] [id number] 3183 Univers 13:15:00 13:15:00 [facility] 2022-02-22 2022-02-22 [facility] 1.2.840.114 [id number] 070 Univers 12:30:00 12:51:57 Visit Thee RENEE 350.1.13.10 i ty of [facility] 4.2.7.2.686 [place] 988.5426696 Mi dical NAL 204 [facility] 2022-02-22 2022-02-22 Outpatient R SALINASELECT [facility] [id number] 0237 Univers 12:30:00 12:51:57 [facility] 2022-02-22 2022-02-22 Office [place], 1.2.840.3 [id number] 9594 7070 Univers 12:30:00 12:51:57 Visit Thee 80783.1.1 ity of 3.104.2.7 [place] .3.121899 Medica l .8 [place] 2022-02-22 2022-02-22 Travel 1.2.840.1 1.2.393.817 6886 0771 Univers 00:00:00 00:00:00 94205.1.1 350.1.13.10 ity of 3.104.2.7 4.2.7.3.698 [place] .3.630957 084.8 Medica l .8 [place] 2022-02-20 2022-02-20 Telephone [facility] 1.2.840.114 958 91485 Univers 00:00:00 00:00:00 [facility] 350.1.13.10 it y of CANCER 4.2.7.2.686 [facility] [place] [facility] [id number] Med ical [facility] [address] [place] 2022-02-20 2022-02-20 Telephone [facility], 1.2.840.1 [id number] Univers 00:00:00 00:00:00 Thee 58018.1.1 ity of 3.104.2.7 [place] .3.676248 Medica l .8 [place] 2022-02-16 2022-02-16 Outpatient R GUTIERREZSELECT [facility]ICAL [facility] [id number] 027 Univers 18:01:45 23:59:00 EWELINA ity of [facility] 2022-02-16 2022-02-16 [facility] 1.2.840.114 [id number] 873 Univers 18:01:45 23:59:00 Encounter Ewelina RENEE 350.1.13.10 ity of [place] 4.2.7.2.686 [facility] 860.0871814 [facility] jd [address] [place] 2022-02-16 2022-02-16 [facility], 1.2.840.5 [id number] 9570 4873 Univers 18:01:45 23:59:00 Encounter Ewelina 48050.1.1 ity of 3.104.2.7 [place] .3.330582 Medica l .8 [place] 2022-02-12 2022-02-12 Outpatient R SALINA [facility] [id number] Univers 14:30:00 15:25:46 THEE ity [facility] 2022-02-12 2022-02-12 [facility] 1.2.840.114 [id number] Univers 14:30:00 15:25:46 [facility] 350.1.13.10 i ty of [place] 4.2.7.2.686 [place] 564.0029514 Me dical NAL 204 [facility] 2022-02-12 2022-02-12 Office [place], 1.2.840.1 [id number] 7573 Univers 14:30:00 15:25:46 Visit Thee 65184.1.1 ity of 3.104.2.7 [place] .3.671451 Medica l .8 [place] 2022-02-12 2022-02-12 Hospital Kley, 1.2.840.6 [id number] 7677 Univers 10:00:00 10:00:00 Encounter Ewelina 45245.1.1 ity of 3.104.2.7 [place] .3.503679 Medica l .8 [place] 2022-02-12 2022-02-12 Travel 1.2.840.1 1.2.890.945 5704 0715 Univers 00:00:00 00:00:00 34844.1.1 350.1.13.10 ity of 3.104.2.7 4.2.7.3.698 [place] .3.570462 084.8 Medica l .8 [place] 2022-02-06 2022-02-06 Outpatient R DARYL [facility] 1041 [id number] Univers 09:30:00 09:30:00 YUMI phipps o f [facility] 2022-01-25 2022-01-25 Outpatient R GUTIERREZ [facility] [id number] 180 Univers 13:30:00 14:06:47 BYRON ity [facility] 2022-01-25 2022-01-25 Office [facility] 1.2.840.114 [id number] Univers 13:30:00 14:06:47 Visit [place] [facility]ALTH 350.1.13.10 ity of [place] 4.2.7.2.686 Tamir as BRIGETTE?BLEA [id number] [address] OFFICE [facility] 2022-01-25 2022-01-25 Outpatient R [facility] [id number] 180 Univers 13:30:00 14:06:47 [facility] 2022-01-25 2022-01-25 Office [facility] 1.2.840.114 [id number] Univers 13:30:00 14:06:47 Visit [facility] 350.1.13.10 ity of [place] 4.2.7.2.686 Tamir as BRIGETTE?BLEA [id number] [address] OFFICE [facility] 2022-01-25 2022-01-25 Outpatient R [facility] [id number] 180 Univers 13:30:00 14:06:47 BYRON ity [facility] 2022-01-25 2022-01-25 Office Finessesusy, 1.2.840.6 [id number] 35205 400 Univers 13:30:00 14:06:47 Visit [place] 67826.1.1 it y of 3.104.2.7 [place] .3.907437 Medica l .8 [place] 2022-01-25 2022-01-25 Travel 1.2.840.1 1.2.239.364 4256 8503 Univers 00:00:00 00:00:00 12204.1.1 350.1.13.10 ity of 3.104.2.7 4.2.7.3.698 [place] .3.158805 084.8 Medica l .8 [place] 2022-01-24 2022-01-24 Telephone [facility] 1.2.379.470 9326 1947 Univers 00:00:00 00:00:00 Gabriella A HEALTH 350.1.13.10 i ty of [place] 4.2.7.2.686 Tamir as BRIGETTE?BLEA [id number] [address] OFFICE [facility] 2022-01-24 2022-01-24 Telephone Jorge, 1.2.840.9 [id number] 951 24241 Univers 00:00:00 00:00:00 Gabriella A 98042.1.1 ity of 3.104.2.7 [place] .3.805457 [address] 2022-01-22 2022-01-22 Outpatient R CANDELARIA [facility] [id number] Univers 09:30:00 09:30:00 HASMUKH itsusy [facility] 2021-12-25 2021-12-25 [facility] 1.2.087.583 6278 5617 Univers 00:00:00 00:00:00 Gabriella A HEALTH 350.1.13.10 i ty of [place] 4.2.7.2.686 Tamir as BRIGETTE?BLEA [id number] [address] 2021-12-25 2021-12-25 Telephone Jorge, 1.2.840.4 [id number] Univers 00:00:00 00:00:00 Gabriella A 83899.1.1 ity of 3.104.2.7 [place] .[phone] [address] 2021-12-01 2021-12-01 Orders Doctor LANI 1.2.840.114 [id number] Univers 00:00:00 00:00:00 Only Unassigned, ANJU 350.1.13.10 ity of [place] [facility] 4.2.7.2.686 Tamir as [phone] [address] 2021-11-20 2021-11-20 [facility]phone [facility] [id number] Univers 00:00:00 00:00:00 Gabriella A HEALTH 350.1.13.10 i ty of [facility] 4.2.7.2.686 Tamir as BRIGETTE?BLEA [phone] [address] 2021-11-14 2021-11-14 Patient Gary [facility] 1.2.840.114 [id number] Univers 00:00:00 00:00:00 Outreach Katt Pascual THELMA 350.1.13.10 [facility] 4[place]2.[place] [phone] Mi dical NAL 201 [facility] 2021-11-14 2021-11-14 Patient Gary, [facility] 1.2.840.114 [id number] Univers 00:00:00 00:00:00 Outreach Katt Pascual THELMA 350.1.13.10 [facility] 4[place] [phone] Mi dical NAL 201 [facility] 2021-11-13 2021-11-13 Supervisor Wood Crew 2, Adc Lab [facility] 1.2.840.114 [id number] Univers 15:15:00 15:30:00 Visit Adrian Ruiz 350.1.13.1 0 [facility] 4[place] [phone] Mi dical NAL 353 [facility] 2021-11-13 2021-11-13 Outpatient R [facility] [id number] Univers 13:30:00 15:02:36 ADRIAN phipps [facility] 2021-11-13 2021-11-13 Office [facility] 1.2.840.114 [id number] Univers 13:30:00 15:02:36 Visit Adrian RENEE 350.1.13.10 [facility] 4[place] [phone] Mi dical NAL [address] [place] [address] 2021-11-13 2021-11-13 Out[facility] [id number] Univers 13:30:00 15:02:36 ADRIAN phipps [facility] 2021-11-02 2021-11-02 [facility] [id number] Univers 15:00:00 15:30:00 Visit Yun RENEE 350.1.13.10 i ty [facility] 4[place] [phone] Mi dical NAL 188 [facility] 2021-11-02 2021-11-02 Outpatient R [facility] [place] [id number] Univers 15:00:00 15:00:00 YUN susy [facility] 2021-11-02 2021-11-02 Outpatient R [facility] [place] [id number] Univers 15:00:00 15:00:00 YUN susy [facility] 2021-11-02 2021-11-02 Outpatient R [facility] [place] [id number] Univers 10:30:00 10:30:00 YUN susy [facility] 2021-10-26 2021-10-26 Outpatient R [facility]LECT [facility] [place] [id number] Univers 12:30:00 12:30:00 GABRIELLA [facility] 2021-10-18 2021-10-18 Telephone [facility] [id number] Univers 00:00:00 00:00:00 Gabriella [facility] 350.1.13.10 i ty of THEL[place] 4.2.7.2.686 Tamir as BRIGETTE?BLEA [phone] Mi martha ALEY [address] [place] [facility] 2021-10-10 2021-10-10 [facility] [id number] Univers 15:30:00 15:30:00 [facility] 2021-10-04 2021-10-04 Orders Doctor LANI 1.2.840.114 [id number] Univers 00:00:00 00:00:00 Only Unassigned, ANJU 350.1.13.10 ity of [place] [facility] 4.2.7.2.686 Tamir as [phone] [address] 2021-10-02 2021-10-02 Telephone [facility] 1.2.840.114 [id number] Univers 00:00:00 00:00:00 Adrian RENEE 350.1.13.10 it[place] of [place] [phone] Mi dical NAL [address] BUILDING 2021-09-18 2021-09-18 Outpatient R [facility] [id number] Univers 15:30:00 16:39:06 ADRIAN [facility] 2021-09-18 2021-09-18 Office [facility] 1.2.840.114 [id number] Univers 15:30:00 16:39:06 Visit Adrian RENEE 350.1.13.10 [facility] 4.2.7.2.[place] [phone] Mi martha GOODSON [address] [facility] 2021-09-14 2021-09-14 Outpatient [facility] [id number] Univers 11:00:00 11:00:00 YUN susy [facility] 2021-09-04 2021-09-04 Outpatient R [facility] [id number] Univers 13:30:00 13:30:00 [facility] 2021-08-22 2021-08-22 [facility]phone [facility] 1.2.840.114 [id number] Univers 00:00:00 00:00:00 Yun RENEE 350.1.13.10 i ty of [place] [phone] Mi martha GOODSON 188 [facility] 2021-08-21 2021-08-21 Orders Doctor LANI 1.2.840.114 [id number] Univers 00:00:00 00:00:00 Only Unassigned, ANJU 350.1.13.10 ity of [place] [facility] 4.2.7.2.686 Tamir as [phone] [address] 2021-08-18 2021-08-18 Telephone [facility] 1.2.183.150 [id number] Univers 00:00:00 00:00:00 Gabriella A [facility] 350.1.13.10 i ty of [place] 4.2.7.2.686 Tamir as BRIGETTE?BLEA [phone] Mi martha NAQVI [address] [place] MEDICAL OFFICE [facility] 2021-08-17 2021-08-17 Outpatient R [facility] [place] [id number] Univers 10:30:00 11:15:44 YUN [facility] 2021-08-17 2021-08-17 Office [facility] 1.2.728.245 [id number] Univers 10:30:00 11:15:44 Visit Yun RENEE 350.1.13.10 i ty of [place] 4.2.7.2.686 [place] HOLLYIO [phone] Mi dic[address] 2021-08-17 2021-08-17 Outpatient Je OLIVER [facility] [id number] Univers 10:30:00 11:15:44 YUN [facility] 2021-08-15 2021-08-15 Outpatient Je OLIVER [facility] [id number] Univers 14:45:00 14:45:00 YUN [facility] 2021-08-15 2021-08-15 Outpatient Je OLIVER [facility] [id number] Univers 14:45:00 14:45:00 YUN [facility] 2021-08-15 2021-08-15 Outpatient Je OLIVER [facility] [id number] Univers 14:45:00 14:45:00 YUN [facility] 2021-08-10 2021-08-10 [facility] Yun Oliver [facility] 1.2.840. 114 [id number] Univers 10:00:00 23:59:00 Encounter Padmaja Bradley [facility] 350.1.13.10 ity of [place] 4.2.7.2.686 [place] cost[place] JOSHI [phone] [facility] [address] ([facility]) 2021-08-10 2021-08-10 Out[facility] [id number] Univers 08:00:00 23:59:00 YUN [facility] 2021-08-10 2021-08-10 Outpatient Je [facility] [id number] Univers 08:00:00 23:59:00 YUN [facility] 2021-08-09 2021-08-09 Emergency X , [facility] ERT [id number] Univers 13:33:00 18:09:00 AB [facility] 2021-08-09 2021-08-09 [facility] 1.2.222.505 [id number] Univers 13:33:00 18:09:00 Ab THELMA 350.1.13.10 i ty of [place].2.7.2.[place] [address] [phone] [facility] [address] [place] 2021-08-09 2021-08-09 Patient LANI Oliver 1.2.241.882 [id number] Univers 00:00:00 00:00:00 Outreach Yun RENE 350.1.13.10 i ty of [facility] 4.2.7.2.[phone] [facility] [address] [place] 2021-08-08 2021-08-08 Telephone [facility] 1.2.840.114 [id number] Univers 00:00:00 00:00:00 Yun RENEE 350.1.13.10 i ty of [place] [phone] Mi dical NAL [address] [place] [address] 2021-08-07 2021-08-07 Outpatient [facility] [id number] Univers 13:00:00 13:00:00 [facility] 2021-08-07 2021-08-07 Outpatient [facility] [id number] Univers 13:00:00 13:00:00 [facility] 2021-07-25 2021-07-25 Telephone [facility] 1.2.840.114 [id number] Univers 00:00:00 00:00:00 Yun RENEE 350.1.13.10 i ty of [place] [phone] Mi dical NAL 188 [facility] 2021-07-21 2021-07-21 Office [facility] 1.2.840.114 [id number] Univers 15:30:00 16:28:05 Visit Gabriella Rose [facility] 350.1.13.10 i ty of [place] 4.2.7.2.686 Tamir as BRIGETTE?BLEA [phone] Mi dichayes KNEY 044 [facility] 2021-07-21 2021-07-21 Outpatient R [facility] [place] [id number] Univers 15:30:00 16:28:05 GABRIELLA phipps [facility] 2021-07-21 2021-07-21 Outpatient R [facility] [place] [id number] Univers 15:30:00 15:30:00 GABRIELLA phipps [facility] 2021-07-21 2021-07-21 Telephone [facility] 1.2.840.114 [id number] Univers 00:00:00 00:00:00 Yun THELMA 350.1.13.10 i ty [facility] 4.2.7.2.[place] [phone] Mi dical NAL 188 [facility] 2021-07-20 2021-07-20 Office [facility] 1.2.840.114 [id number] Univers 13:30:00 14:00:00 Visit Gabriella Rose [facility] 350.1.13.10 i ty of [facility] 4.2.7.2.686 Tamir as BRIGETTE?BLEA [phone] Mi dical KNEY 044 [facility] 2021-07-20 2021-07-20 Outpatient R [facility] [place] [id number] Univers 13:30:00 13:30:00 GABRIELLA phipps [facility] 2021-07-20 2021-07-20 Outpatient R [facility] [place] [id number] Univers 13:30:00 13:30:00 GABRIELLA phipps [facility] 2021-07-18 2021-07-18 Office [facility] 1.2.038.713 [id number] Univers 16:30:00 16:54:16 Visit Yunruth RENEE 350.1.13.10 i ty [facility] 4.2.7.2.[place] [phone] Mi dical NAL 188 [facility] 2021-07-18 2021-07-18 Outpatient R [facility] [place] [id number] Univers 16:30:00 16:54:16 YUN ity [facility] 2021-07-18 2021-07-18 Outpatient R OLIVER, [facility] [id number] Univers 16:30:00 16:54:16 YUN susy [facility] 2021-07-18 2021-07-18 Outpatient R [facility] [place] [id number] Univers 16:30:00 16:30:00 YUN susy [facility] 2021-07-18 2021-07-18 Orders Doctor GARIBAY 1.2.840.114 [id number] Univers 00:00:00 00:00:00 Only Unassigned, ANJU 350.1.13.10 ity of [facility] 4.2.7.2.[phone] [facility] [address] 2021-07-07 2021-07-07 Transition OSVALDO Trimble 1.2.840.114 [id number] Univers 00:00:00 00:00:00 of Care Sarita FRANKLIN 350.1.13.10 i ty of [place] 4.2.7.2.[phone] [facility] [address] 2021-07-03 2021-07-06 Inpatient [facility] ERIN [id number] Univers 00:36:00 16:08:00 JOSELO [facility] 2021-07-03 2021-07-06 [facility] William Carlita Mirella [facility] 1.2.840.1 [id number] Univers 00:36:00 16:08:00 Encounter Joselo Blanco 350.1.13.10 ity [facility] [place].2.7.2.[place] [id number] [facility] [address] 2021-07-03 2021-07-06 Inpatient X TATE [facility] ERIN [id number] Univers 00:36:00 16:08:00 JOSELO [facility] 2021-06-07 2021-06-07 Outpatient R [facility] [place] [id number] Univers 16:00:00 16:00:00 ALICIA phipps [facility] 2021-05-25 2021-05-25 Telephone [facility] 1.2.300.980 [id number] Univers 00:00:00 00:00:00 Alicia RENEE 350.1.13.10 ity [facility] [place]2.7.2.[place] [phone] Mi dical NAL [address] [place] [address] 2021-05-22 2021-05-22 [facility] [id number] Univers 14:30:00 14:30:00 ALICIA phipps [facility] 2021-04-26 2021-04-26 Office [facility] 1.2.840.114 [id number] Univers 11:31:12 12:29:11 Visit Alicia Renee 350.1.13.10 ity [facility] 4.2.7.2.[place] [phone] Mi dical nal [address] [place] [address] 2021-04-26 2021-04-26 Outpatient R [facility] [place] [id number] Univers 11:30:00 11:30:00 ALICIA moise [facility] 2021-04-26 2021-04-26 Orders Doctor GARIBAY 1.2.840.114 [id number] Univers 00:00:00 00:00:00 Only Unassigned, ANJU 350.1.13.10 ity of [place] [facility] 4.2.7.2.686 Tamir as [phone] [address] 2021-04-20 2021-04-20 Outpatient [facility] [id number] [facility] [place] 00:00:00 23:59:00 Ruth 2021-04-17 2021-04-20 Inpatient ER MARIEL PARKER [facility] [id number] [facility] 12:53:00 17:18:00 MEGAN 2021-04-17 2021-04-20 Hospital ER Regina Sorianog [facility] [id number] [facility] 12:53:00 17:18:00 Encounter Indu Gambino [facility] 2021-04-20 2021-04-20 Orders [facility] [id number] 00:00:00 00:00:00 Only [facility] 2021-04-17 2021-04-17 Travel [facility] [id number] [facility] 00:[facility] 00:00:00 [facility] 2021-04-03 2021-04-03 Outpatient R MIRNA, [facility] [id number] Univers 16:00:00 16:00:00 ALICIA moise [facility] 2021-03-22 2021-03-22 Outpatient R [facility] [id number] Univers 15:30:00 15:30:00 ALICIA moise [facility] 2020-09-16 2020-09-16 Telephone [facility] 1.2.708.327 [id number] Univers 00:00:00 00:00:00 Alicia Brunsonton 350.1.13.10 ity of [place].2.[place] [phone] Mi dical nal 204 [facility] 2020-09-16 2020-09-16 Telephone [facility] 1.2.013.672 [id number] Univers 00:00:00 00:00:00 Alicia Bruns[place]on 350.1.13.10 ity of [place].2.[place] [phone] Mi dical nal 204 [facility] 2020-09-12 2020-09-12 Telephone [facility] 1.2.468.253 [id number] Univers 00:00:00 00:00:00 Alicia [place]uns[place]on 350.1.13.10 ity of [place].2.[place] [phone] Mi dical nal 204 [facility] 2020-09-08 2020-09-08 Supervisor Wood Crew Jeanette, Adc Lab Main [facility] 1.2.8 40.114 [id number] Univers 13:20:27 13:35:27 Visit Alicia Marie 350.1.13.10 ity of [place]2.7.2.686 [place] [phone] Mi dical nal 353 [facility] 2020-09-08 2020-09-08 Outpatient R [facility] [id number] Univers 13:15:00 13:15:00 ALICIA moise [facility] 2020-09-08 2020-09-08 Case [facility] 1.2.840.114 [id number] Univers 00:00:00 00:00:00 Management Alicia Renee 350.1.13.10 ity of [place].2.686 [place] [phone] Mi dical nal [address] Building 2020-07-26 2020-07-26 Outpatient [facility] [id number] Univers 13:00:00 13:00:00 BILAL ity [facility] 2020-07-14 2020-07-14 Office [facility] 1.2.840.114 [id number] Univers 14:29:58 15:43:06 Visit [facility] 350.1.13.10 it [facility] 4.2.7.2.686 [facility] s [facility] [phone] [facility] Primary & [address] Specialty Care 2020-07-14 2020-07-14 Outpatient Je [facility] [place] [id number] Univers 15:00:00 15:00:00 BILAL ity [facility] 2020-07-14 2020-07-14 Orders Doctor LANI 1.2.840.114 [id number] Univers 00:00:00 00:00:00 Only Unassigned, ANJU 350.1.13.10 ity of [place] [facility] 4.2.7.2.686 Tamir [phone] [place] [address] [address] 2019-10-07 2019-10-07 Outpatient Je [facility] [id number] Univers 13:00:00 13:00:00 BILAL ity [facility] 2019-10-02 2019-10-02 [facility] 1.2.625.788 [id number] Univers 00:00:00 00:00:00 Alicia Renee 350.1.13.10 ity of [place].2.[place] [phone] Mi dical nal [address] Building 2019-08-06 2019-08-06 Orders Doctor GARIBAY 1.2.840.114 [id number] Univers 00:00:00 00:00:00 Only Unassigned, ANJU 350.1.13.10 ity of [place] [facility] 4.2.7.2.[phone] [facility] [address] [place] 2019-08-05 2019-08-05 Office Gramm, [facility] 1.2.840.114 [id number] [facility] 10:18:25 10:52:03 Visit Alicia Renee 350.1.13.10 ity of [place].2.[place] [phone] [address] 2019-03-05 2019-03-05 Telephone Gramm, [facility] 1.2.017.154 [id number] [facility] 00:00:00 00:00:00 Alicia Rose Thelma 350.1.13.10 ity of [place].2.[place] [phone] [address] 2019-03-03 2019-03-03 Supervisor Wood Crew 1, Adc Lab [facility] 1.2.840.114 [id number] Univers 12:49:09 13:04:09 Visit Alicia Marie 350.1.13.10 ity of [place].7.2.[place] [phone] [facility] [address] [place] 2019-03-03 2019-03-03 Orders Doctor LANI 1.2.840.114 [id number] Univers 00:00:00 00:00:00 Only Unassigned, ANJU 350.1.13.10 ity of [place] [facility] 4.2.7.2.[phone] [facility] [address] [place] 2019-02-11 2019-02-11 Telephone Gramm, [facility] 1.2.092.441 [id number] Univers 00:00:00 00:00:00 Alicia Rose Thelma 350.1.13.10 ity of [place].2.[place] [phone] [address] 2019-02-06 2019-02-06 Office Gramm, [facility] 1.2.840.114 [id number] Univers 09:35:16 10:21:45 Visit Alicia Renee 350.1.13.10 ity of [place] 4.2.7.2.686 Purnima Angulo [phone] Mi dical nal [address] Building 2019-02-06 2019-02-06 Orders Doctor LANI 1.2.840.114 [id number] Univers 00:00:00 00:00:00 Only Unassigned, ANJU 350.1.13.10 ity of [place] [facility] 4.2.7.2.686 Tamir as [phone] [address] Results Test Description Test Time Test Comments Results Result Comments Source BLOOD CULTURE 2022-07-29 23:00:54 Test Item Value Reference Range Interpretation Comme nts CULTURE (BEAKER) (test code = 1095) No growth in 5 days BLOOD [id number] 23:00:54 Test Item Value Reference Range Interpretation Comments CULTURE (BEAKER) (test No growth in 5 days code = 1095) The specimen volume collected for this blood culture was below the optimum (10 mL per bottle or 20 mL total). Use of lower volumes may adversely affect recovery and/or detection times of some organisms.Urine [id number] 09:39:06 Test Item Value Reference Range Interpretation Comments Result (test code = 10-19,000 col/mL A 6463-4) Melvina albicans Lab Interpretation (test Abnormal code = 51335-0) [facility] [id number] 09:39:06 Test Item Value Reference Range Interpretation Comments Result (test code = 10-19,000 col/mL A 6463-4) Melvina albicans Lab Interpretation (test Abnormal code = 26812-7) [facility] [id number] 09:39:06 Test Item Value Reference Range Interpretation Comments Result (test code = 10-19,000 col/mL A 6463-4) Melvina albicans Lab Interpretation (test Abnormal code = 67142-8) [facility] [id number] 09:39:06 Test Item Value Reference Range Interpretation Comments CULTURE (BEAKER) (test A 10-19 ,000 col/mL Melvina code = 1095) albicans POC-Glucose [id number] 08:29:07 Test Item Value Reference Range Interpretation Comments POC-Glucose Meter (test 94 mg/dL 70-110 : TE STED AT [facility] code = 1538) [address] [facility], 770 30: Sales And Operations Trainee/Techni kain ID = [id number] for Caren Flowers a Lab Interpretation (test Normal code = 45088-2) [facility]-Glucose [id number] 08:29:07 Test Item Value Reference Range Interpretation Comments POC-Glucose Meter (test 94 mg/dL 70-110 : TE STED AT [facility] code = 1538) [address] [facility], 770 30: Sales And Operations Trainee/Techni kain ID = [id number] for Caren Flowers a Lab Interpretation (test Normal code = 87073-4) [facility]-Glucose [id number] 08:29:07 Test Item Value Reference Range Interpretation Comments POC-Glucose Meter (test 94 mg/dL 70-110 : TE STED AT [facility] code = 1538) [address] [place] [address], 770 30: Sales And Operations Trainee/Techni kain ID = [id number] for Caren Flowers a Lab Interpretation (test Normal code = 08997-7) [facility]-GLUCOSE [id number] 08:29:07 Test Item Value Reference Range Interpretation Comments POC-GLUCOSE METER 94 mg/dL 70-110 : TESTED A T [facility] 6720 (BEAKER) (test code = TABBY Wooten [facility], 1538) 93735: Sales And Operations Trainee/Techni kain ID = [id number] for Caren Pepea (CELLAVISION MANUAL DIFF)2022-07-27 06:49:08 Test Item Value Reference Range Interpretation Comments NEUTROPHILS - REL 54 % (CELLAVISION)(BEAKER) (test code = 2816) LYMPHOCYTES - REL 36 % (CELLAVISION)(BEAKER) (test code = 2817) MONOCYTES - REL 7 % (CELLAVISION)(BEAKER) (test code = 2818) EOSINOPHILS - REL 1 % (CELLAVISION)(BEAKER) (test code = 2819) MYELOCYTES - REL 1 % 0-0 H (CELLAVISION)(BEAKER) (test code = 2822) BANDS - REL (CELLAVISION)(BEAKER) 1 % 0-10 (test code = 2826) NEUTROPHILS - ABS 1.94 K/ul 1.78-5.38 (CELLAVISION)(BEAKER) (test code = 2830) LYMPHOCYTES - ABS 1.30 K/ul 1.32-3.57 L (CELLAVISION)(BEAKER) (test code = 2831) MONOCYTES - ABS 0.25 K/uL 0.30-0.82 L (CELLAVISION)(BEAKER) (test code = 2832) EOSINOPHILS - ABS 0.04 K/uL 0.04-0.54 (CELLAVISION)(BEAKER) (test code = 2834) MYELOCYTES-ABS 0.04 K/uL 0.00-0.00 H (CELLAVISION)(BEAKER) (test code = 2837) BANDS - ABS (CELLAVISION)(BEAKER) 0.04 K/uL 0.00-0.80 (test code = 2840) TOTAL COUNTED (BEAKER) (test code 100 = 1351) MANUAL NRBC PER 100 CELLS 2 /100 WBC 0-0 H (BEAKER) (test code = 1353) WBC MORPHOLOGY (BEAKER) (test Normal code = 487) GIANT PLATELETS (BEAKER) (test Present code = 313) POLYCHROMATOPHILLIC RBCS(BEAKER) 2+ moderate (test code = 478) HYPOCHROMIA (BEAKER) (test code = 1+ few 963) ANISOCYTOSIS (BEAKER) (test code 2+ moderate = 961) MICROCYTES (BEAKER) (test code = 1+ few 965) ARTIFACT (CELLAVISION)(BEAKER) Present (test code = 3432) PLATELET CONCENTRATION Adequate (CELLAVISION)(BEAKER) (test code = 3438) Sales And Operations Trainee ID - [email or web address] comments: Slide comments:CBC W/PLT COUNT & AUTO [id number] 06:49:07 Test Item Value Reference Range Interpretation Comments WHITE BLOOD CELL COUNT (BEAKER) 3.6 K/ L 3.5-10.5 (test code = 775) RED BLOOD CELL COUNT (BEAKER) 3.05 M/ L 4.63-6.08 L (test code = 761) HEMOGLOBIN (BEAKER) (test code = 7.7 GM/DL 13.7-17.5 L 410) HEMATOCRIT (BEAKER) (test code = 25.0 % 40.1-51.0 L 411) MEAN CORPUSCULAR VOLUME (BEAKER) 82 fL 79-92 (test code = 753) MEAN CORPUSCULAR HEMOGLOBIN 25.2 pg 25.7-32.2 L (BEAKER) (test code = 751) MEAN CORPUSCULAR HEMOGLOBIN CONC 30.8 GM/DL 32.3-36.5 L (BEAKER) (test code = 752) RED CELL DISTRIBUTION WIDTH 14.2 % 11.6-14.4 (BEAKER) (test code = 412) PLATELET COUNT (BEAKER) (test 174 K/CU MM 150-450 code = 756) MEAN PLATELET VOLUME (BEAKER) 9.0 fL 9.4-12.4 L (test code = 754) NUCLEATED RED BLOOD CELLS 0 /100 WBC 0-0 (BEAKER) (test code = 413) POCT-GLUCOSE [id number] 08:07:16 Test Item Value Reference Range Interpretation Comments POC-GLUCOSE METER 91 mg/dL 70-110 : TESTED A T [facility] 6720 (BEAKER) (test code = [facility], 1538) 66067: Sales And Operations Trainee/Techni kain ID = [id number] for HECTOR SIMMONS (CELLAVISION MANUAL DIFF)2022-07-26 07:01:58 Test Item Value Reference Range Interpretation Comments NEUTROPHILS - REL 45 % (CELLAVISION)(BEAKER) (test code = 2816) LYMPHOCYTES - REL 37 % (CELLAVISION)(BEAKER) (test code = 2817) MONOCYTES - REL 16 % (CELLAVISION)(BEAKER) (test code = 2818) BANDS - REL (CELLAVISION)(BEAKER) 3 % 0-10 (test code = 2826) NEUTROPHILS - ABS 1.08 K/ul 1.78-5.38 L (CELLAVISION)(BEAKER) (test code = 2830) LYMPHOCYTES - ABS 0.89 K/ul 1.32-3.57 L (CELLAVISION)(BEAKER) (test code = 2831) MONOCYTES - ABS 0.38 K/uL 0.30-0.82 (CELLAVISION)(BEAKER) (test code = 2832) BANDS - ABS (CELLAVISION)(BEAKER) 0.07 K/uL 0.00-0.80 (test code = 2840) TOTAL COUNTED (BEAKER) (test code = 100 1351) RBC MORPHOLOGY (BEAKER) (test code Normal = 762) PLT MORPHOLOGY (BEAKER) (test code Normal = 486) DOHLE BODIES (BEAKER) (test code = Present 359) TOXIC GRANULATION (BEAKER) (test Present code = 771) ARTIFACT (CELLAVISION)(BEAKER) Present (test code = 3432) PLATELET CONCENTRATION Decreased (CELLAVISION)(BEAKER) (test code = 3438) Sales And Operations Trainee ID - [place] Clarisa comments: Slide comments:CBC W/PLT COUNT & AUTO [id number] 07:01:57 Test Item Value Reference Range Interpretation Comments WHITE BLOOD CELL COUNT (BEAKER) 2.4 K/ L 3.5-10.5 L (test code = 775) RED BLOOD CELL COUNT (BEAKER) 2.82 M/ L 4.63-6.08 L (test code = 761) HEMOGLOBIN (BEAKER) (test code = 7.2 GM/DL 13.7-17.5 L 410) HEMATOCRIT (BEAKER) (test code = 22.7 % 40.1-51.0 L 411) MEAN CORPUSCULAR VOLUME (BEAKER) 81 fL 79-92 (test code = 753) MEAN CORPUSCULAR HEMOGLOBIN 25.5 pg 25.7-32.2 L (BEAKER) (test code = 751) MEAN CORPUSCULAR HEMOGLOBIN CONC 31.7 GM/DL 32.3-36.5 L (BEAKER) (test code = 752) RED CELL DISTRIBUTION WIDTH 14.3 % 11.6-14.4 (BEAKER) (test code = 412) PLATELET COUNT (BEAKER) (test 134 K/CU MM 150-450 L code = 756) MEAN PLATELET VOLUME (BEAKER) 9.4 fL 9.4-12.4 (test code = 754) NUCLEATED RED BLOOD CELLS 0 /100 WBC 0-0 (BEAKER) (test code = 413) [id number] 03:56:45 Test Item Value Reference Range Interpretation Comments MAGNESIUM (BEAKER) 1.8 mg/dL 1.6-2.6 Specimen slightly (test code = 627) hemolyzed Sales And Operations Trainee ID - YARED [id number] 03:56:45 Test Item Value Reference Range Interpretation Comments PHOSPHORUS (BEAKER) 2.4 mg/dL 2.3-4.7 Specimen slightly (test code = 604) hemolyzed Sales And Operations Trainee ID - YARED GBASIC METABOLIC [id number] 03:56:45 Test Item Value Reference Range Interpretation Comments SODIUM (BEAKER) 134 meq/L 136-145 L (test code = 381) POTASSIUM 3.3 meq/L 3.5-5.1 L Specimen slight ly (BEAKER) (test hemolyzed code = 379) CHLORIDE (BEAKER) 105 meq/L 98-107 (test code = 382) CO2 (BEAKER) 21 meq/L 22-29 L (test code = 355) BLOOD UREA 4 mg/dL 7-21 L NITROGEN (BEAKER) (test code = 354) CREATININE 0.54 mg/dL 0.57-1.25 L Specimen slight ly (BEAKER) (test hemolyzed code = 358) GLUCOSE RANDOM 121 mg/dL 70-105 H (BEAKER) (test code = 652) CALCIUM (BEAKER) 8.5 mg/dL 8.4-10.2 (test code = 697) EGFR (BEAKER) 129 Interpretatio n of eGFR (test code = mL/min/1.73 values Stage De scription 1092) sq m Result G1 Francine l or high >=90 G2 Mildly decreased 60-89 G3a Mildl y to moderately 45-5 9 G3b Moderately to s everely 30-44 G4 Severl y decreased 15-29 G5 Kidney failure <15Reported eGF R is based on the CKD-EPI 2020 equation that d oes not use a race coefficientEsti mated GFR is not as accur ate as Creatinine Em grayson in predicting glom erular filtration rate . Estimated GFR is not appl icable for dialysis patien ts Sales And Operations Trainee ID - YARED GVANCOMYCIN LEVEL, [id number] 21:58:17 Test Item Value Reference Range Interpretation Comments VANCOMYCIN TROUGH (BEAKER) (test 12.3 ug/mL 10.0-20.0 code = 522) Sales And Operations Trainee ID - BSPOCT-GLUCOSE [id number] 06:31:40 Test Item Value Reference Range Interpretation Comments POC-GLUCOSE METER 115 mg/dL 70-110 H : TESTED A T [facility] 6720 (BEAKER) (test code = AL[place]ADONNA JARAM[place]O [place], 1538) [address]: Sales And Operations Trainee/Techni kain ID = [id number] for Cl Gabriele donovan (CELLAVISION MANUAL DIFF)2022-07-25 06:09:55 Test Item Value Reference Range Interpretation Comments NEUTROPHILS - REL 18 % (CELLAVISION)(BEAKER) (test code = 2816) LYMPHOCYTES - REL 68 % (CELLAVISION)(BEAKER) (test code = 2817) MONOCYTES - REL 12 % (CELLAVISION)(BEAKER) (test code = 2818) BANDS - REL (CELLAVISION)(BEAKER) 2 % 0-10 (test code = 2826) NEUTROPHILS - ABS 0.13 K/ul 1.78-5.38 L (CELLAVISION)(BEAKER) (test code = 2830) LYMPHOCYTES - ABS 0.48 K/ul 1.32-3.57 L (CELLAVISION)(BEAKER) (test code = 2831) MONOCYTES - ABS 0.08 K/uL 0.30-0.82 L (CELLAVISION)(BEAKER) (test code = 2832) BANDS - ABS (CELLAVISION)(BEAKER) 0.01 K/uL 0.00-0.80 (test code = 2840) TOTAL COUNTED (BEAKER) (test code 100 = 1351) MANUAL NRBC PER 100 CELLS (BEAKER) 1 /100 WBC 0-0 H (test code = 1353) RBC MORPHOLOGY (BEAKER) (test code Normal = 762) PLT MORPHOLOGY (BEAKER) (test code Normal = 486) SMUDGE CELLS (BEAKER) (test code = Present 1371) DOHLE BODIES (BEAKER) (test code = Present 359) ARTIFACT (CELLAVISION)(BEAKER) Present (test code = 3432) PLATELET CONCENTRATION Decreased (CELLAVISION)(BEAKER) (test code = 3438) Sales And Operations Trainee ID - [id number] ID - Chau comments: Slide comments:CBC W/PLT COUNT & AUTO [id number] 06:09:54 Test Item Value Reference Range Interpretation Comments WHITE BLOOD CELL COUNT (BEAKER) 0.7 K/ L 3.5-10.5 LL (test code = 775) RED BLOOD CELL COUNT (BEAKER) 3.12 M/ L 4.63-6.08 L (test code = 761) HEMOGLOBIN (BEAKER) (test code = 8.1 GM/DL 13.7-17.5 L 410) HEMATOCRIT (BEAKER) (test code = 25.3 % 40.1-51.0 L 411) MEAN CORPUSCULAR VOLUME (BEAKER) 81 fL 79-92 (test code = 753) MEAN CORPUSCULAR HEMOGLOBIN 26.0 pg 25.7-32.2 (BEAKER) (test code = 751) MEAN CORPUSCULAR HEMOGLOBIN CONC 32.0 GM/DL 32.3-36.5 L (BEAKER) (test code = 752) RED CELL DISTRIBUTION WIDTH 14.2 % 11.6-14.4 (BEAKER) (test code = 412) PLATELET COUNT (BEAKER) (test 118 K/CU MM 150-450 L code = 756) MEAN PLATELET VOLUME (BEAKER) 9.2 fL 9.4-12.4 L (test code = 754) NUCLEATED RED BLOOD CELLS 0 /100 WBC 0-0 (BEAKER) (test code = 413) CT, CHEST WITH IV CONTRAST- PE TEST [id number] 05:32:00Unlisted Reason for Exam - Click Yes and Enter Reason Below->No [facility] : 1985 Sex: MFINAL REPORT EXAMINATION: CT, CT, chest (PE protocol) CLINICAL DATA: Fever and nausea. There is clinical concern for possible pulmonary embolic disease. COMPARISON: July 11, 2022 TECHNIQUE: Spiral CT imaging was performed from the lung apices through the lung bases after bolus administration of intravenous contrast. The technologist did not transmit the data regarding the type ofcontrast given and the amount into to the PACS system. Please review the technologist note if that information is needed. 3-D angiographic image post processing was performed according to CTA protocol.Images with MIP technique were created. The estimated radiation dose was equal to a total DLP of 422 mGy*cm. Individualized radiation dose reduction techniques were employed. FINDINGS: Metastases: Thispatient with known metastatic testicular cancer continues to present with numerous bilateral pulmonary nodules too numerous to count. As many as 50 or more are present on each side. Some are small measuring under a centimeter in size. Some are larger measuring up to over 3 cm wide at each lung base against the pleura. These nodules were solid on the previous study of July 11, 2022 and were larger. They are now starting to cavitate in some areas and the largest lesion in the right middle lobe previously on image 66 from July 11, 2022 that measured 33 mm in size is now closer to 18 mm on axial image 69 today. This actually appears to be metastatic testicular cancer that may be responding to treatment. Pulmonary arteries: There is good opacification of the pulmonary arteries from the pulmonary artery outflow tract through the main pulmonary arteries to the subsegmental level. There is no evidence of filling defects, saddle thrombus, or any pulmonary embolic disease. Thoracic aorta/great vessels: The thoracic aorta shows no evidence for dissection or aneurysm. No aberrant right subclavian artery is seen. The great vessels are unremarkable. The superior vena cava is normal in size . Heart/peric ardium: The heart is normal in size. No pericardial thickening or fluid is seen. No coronary artery calcification is noted Mediastinum/hilar structures: There is some mediastinal lymphadenopathy underneath the samantha and in the right peritracheal region. The lymph nodes have also decreased in size in just the last two weeks. They appear to be responding to some type of therapy. No pneumomediastinum is seen. Diaphragms/pleura: No pleural fluid is seen. No pleural plaque or calcification is seen. No pneumothorax is seen. No pleural based triangular opacity is seen to suggest a lung infarct Lungs and airways: The metastases are still widely scattered throughout all lung canchola but most numerous at each lung base posteriorly. I do not see any new pneumonia or edema or lung infarct or a pattern of viral pneumonitis. Chest wall/axillary region/lower neck: No significant chest wall abnormality is seen.There is no axillary adenopathy. The visualized portions of the lower thyroid are unremarkable Upperabdominal structures: No adrenal mass is seen. The gallbladder is still present. The patient had surgery in the spine. No hiatal hernia is noted. Bony Thorax: Visualized bony structures are intact. No rib fracture or deformity seen. No postsurgical changes are seen in the sternum. The thoracic spine shows no evidence for any compression fracture or lytic or blastic tumor metastases.. IMPRESSION: 1. CTA of the chest does not show any pulmonary emboli.2. Widespread metastatic nodules from testicular cancer actually are decreasing in size and starting to cavitate compared with the previous study two weeks ago. This could be a response to chemotherapy or immune therapy.3. No new pneumonia or edema or infarct pattern or viral pneumonitis is seen.4. No pleural fluid or pneumothorax complication is seen.5. The mediastinal adenopathy seen two weeks ago is also improved over the interval of only 14 days.Signed: Karlee Little MDReport Verified Date/Time: 07/25/2022 05:32:35 [id number] 04:52:12 Test Item Value Reference Range Interpretation Comments PHOSPHORUS (BEAKER) (test code = 1.6 mg/dL 2.3-4.7 L 604) Sales And Operations Trainee ID - KRISTINA WHEPATIC FUNCTION [id number] 04:52:12 Test Item Value Reference Range Interpretation Comments TOTAL PROTEIN (BEAKER) (test code = 7.0 gm/dL 6.0-8.3 770) ALBUMIN (BEAKER) (test code = 1145) 3.2 g/dL 3.5-5.0 L BILIRUBIN TOTAL (BEAKER) (test code 0.6 mg/dL 0.2-1.2 = 377) BILIRUBIN DIRECT (BEAKER) (test 0.3 mg/dL 0.1-0.5 code = 706) ALKALINE PHOSPHATASE (BEAKER) (test 151 U/L 40-150 H code = 346) AST (SGOT) (BEAKER) (test code = 19 U/L 5-34 353) ALT (SGPT) (BEAKER) (test code = 31 U/L 6-55 347) Sales And Operations Trainee ID Joe ACEVEDO WBASIC METABOLIC [id number] 04:52:11 Test Item Value Reference Range Interpretation Comments SODIUM (BEAKER) 130 meq/L 136-145 L (test code = 381) POTASSIUM 3.4 meq/L 3.5-5.1 L (BEAKER) (test code = 379) CHLORIDE (BEAKER) 99 meq/L 98-107 (test code = 382) CO2 (BEAKER) 24 meq/L 22-29 (test code = 355) BLOOD UREA 5 mg/dL 7-21 L NITROGEN (BEAKER) (test code = 354) CREATININE 0.59 mg/dL 0.57-1.25 (BEAKER) (test code = 358) GLUCOSE RANDOM 110 mg/dL 70-105 H (BEAKER) (test code = 652) CALCIUM (BEAKER) 8.8 mg/dL 8.4-10.2 (test code = 697) EGFR (BEAKER) 126 Interpretatio n of eGFR (test code = mL/min/1.73 values Stage D escription 1092) sq m Result G1 Francine l or high >=90 G2 Mildly decreased 60-89 G3a Mildl y to moderately 45-5 9 G3b Moderately to s everely 30-44 G4 Severl y decreased 15-29 G5 Kidney failure <15Reported eGF R is based on the CKD-EPI 2020 equation that d oes not use a race coefficientEsti mated GFR is not as accur ate as Creatinine Em grayson in predicting glom erular filtration rate . Estimated GFR is not appl icable for dialysis patien ts Sales And Operations Trainee ID Joe ACEVEDO [id number] 04:52:11 Test Item Value Reference Range Interpretation Comments MAGNESIUM (BEAKER) (test code = 1.5 mg/dL 1.6-2.6 L 627) Sales And Operations Trainee ID Joe ACEVEDO [id number] 03:26:15 Test Item Value Reference Range Interpretation Comments PHOSPHORUS (BEAKER) (test code = 1.4 mg/dL 2.3-4.7 LL 604) Sales And Operations Trainee ID Joe ACEVEDO WURIC [id number] 03:00:17 Test Item Value Reference Range Interpretation Comments URIC ACID (BEAKER) (test code = 2.6 mg/dL 2.6-7.2 773) Sales And Operations Trainee ID - KRISTINA WLACTATE DEHYDROGENASE (LDH)2022-07-25 03:00:17 Test Item Value Reference Range Interpretation Comments LACTATE DEHYDROGENASE (BEAKER) (test 373 U/L 125-220 H code = 635) Sales And Operations Trainee ID - KRISTINA WHIGH SENSITIVITY TROPONIN [id number] 02:31:44 Test Item Value Reference Range Interpretation Comments HIGH SENSITIVITY < pg/ml See_Comment [Automated message] TROPONIN I (test code = The system which 8583622) generated this result transmitted ref erence range: <=53. Th e reference range was not used to interpr et this result as normal/abnormal . The High-Sensitivity Troponin I assay is performed on QBE IM Analyzer. Results of this assay should always be interpreted in conjunction with the patient's medical history, clinical presentation, and other findings. (CELLAVISION MANUAL DIFF)2022-07-25 00:46:40 Test Item Value Reference Range Interpretation Comments NEUTROPHILS - REL 12 % (CELLAVISION)(BEAKER) (test code = 2816) LYMPHOCYTES - REL 50 % (CELLAVISION)(BEAKER) (test code = 2817) MONOCYTES - REL 15 % (CELLAVISION)(BEAKER) (test code = 2818) EOSINOPHILS - REL 2 % (CELLAVISION)(BEAKER) (test code = 2819) METAMYELOCYTES - REL 2 % 0-0 H (CELLAVISION)(BEAKER) (test code = 2821) BANDS - REL (CELLAVISION)(BEAKER) 2 % 0-10 (test code = 2826) ATYPICAL LYMPHOCYTES - REL 18 % 0-0 H (CELLAVISION)(BEAKER) (test code = 2829) NEUTROPHILS - ABS 0.10 K/ul 1.78-5.38 L (CELLAVISION)(BEAKER) (test code = 2830) LYMPHOCYTES - ABS 0.40 K/ul 1.32-3.57 L (CELLAVISION)(BEAKER) (test code = 2831) MONOCYTES - ABS 0.12 K/uL 0.30-0.82 L (CELLAVISION)(BEAKER) (test code = 2832) EOSINOPHILS - ABS 0.02 K/uL 0.04-0.54 L (CELLAVISION)(BEAKER) (test code = 2834) METAMYELOCYTES - ABS 0.02 K/uL 0.00-0.00 H (CELLAVISION)(BEAKER) (test code = 2836) BANDS - ABS (CELLAVISION)(BEAKER) 0.02 K/uL 0.00-0.80 (test code = 2840) ATYPICAL LYMPHOCYTES - ABS 0.14 K/uL 0.00-0.00 H (CELLAVISION)(BEAKER) (test code = 2858) TOTAL COUNTED (BEAKER) (test code = 100 1351) SMUDGE CELLS (BEAKER) (test code = Present 1371) GIANT PLATELETS (BEAKER) (test code Present = 313) POLYCHROMATOPHILLIC RBCS(BEAKER) 1+ few (test code = 478) MACROCYTES (BEAKER) (test code = 1+ few 964) ARTIFACT (CELLAVISION)(BEAKER) Present (test code = 3432) PLATELET CONCENTRATION Adequate (CELLAVISION)(BEAKER) (test code = 3438) Sales And Operations Trainee ID - [id number] ID - [id number] ID - Obed Ardon comments: Slide comments:CBC W/PLT COUNT & AUTO [id number] 00:46:39 Test Item Value Reference Range Interpretation Comments WHITE BLOOD CELL COUNT (BEAKER) 0.8 K/ L 3.5-10.5 LL (test code = 775) RED BLOOD CELL COUNT (BEAKER) 3.40 M/ L 4.63-6.08 L (test code = 761) HEMOGLOBIN (BEAKER) (test code = 8.5 GM/DL 13.7-17.5 L 410) HEMATOCRIT (BEAKER) (test code = 27.3 % 40.1-51.0 L 411) MEAN CORPUSCULAR VOLUME (BEAKER) 80 fL 79-92 (test code = 753) MEAN CORPUSCULAR HEMOGLOBIN 25.0 pg 25.7-32.2 L (BEAKER) (test code = 751) MEAN CORPUSCULAR HEMOGLOBIN CONC 31.1 GM/DL 32.3-36.5 L (BEAKER) (test code = 752) RED CELL DISTRIBUTION WIDTH 14.0 % 11.6-14.4 (BEAKER) (test code = 412) PLATELET COUNT (BEAKER) (test 161 K/CU MM 150-450 code = 756) MEAN PLATELET VOLUME (BEAKER) 9.5 fL 9.4-12.4 (test code = 754) NUCLEATED RED BLOOD CELLS 0 /100 WBC 0-0 (BEAKER) (test code = 413) Urinalysis w/Microscopic + Reflex to [id number] 23:49:44 Test Item Value Reference Range Interpretation Comments Color, UA (test code Dark Yellow = 5778-6) Clarity, UA (test Slightly Hazy code = 5767-9) Specific [place], UA 1.020 1.001-1.035 (test code = 5811-5) pH, UA (test code = 7.0 5.0-8.0 5803-2) Protein, UA (test 30 mg/dL negative A code = 05485-2) Glucose, UA (test Negative Negative code = 365) Ketones, UA (test Negative negative code = 2514-8) Bilirubin, UA (test Negative Negative code = 83600-8) Blood, UA (test code Trace Negative A = 61505-7) Nitrite, UA (test Negative Negative code = 5802-4) Leukocytes, UA (test Negative Negative code = 5799-2) Urobilinogen, UA 0.2 (test code = 38324-4) RBC, UA (test code = 9 See_Comment [Autom ated 69403-0) message] The system which generated this result transmitted reference range : /HPF. The reference range was not used to interpret this result as normal/abnormal . WBC, UA (test code = 4 See_Comment [Autom ated 5821-4) message] The system which generated this result transmitted reference range : /HPF. The reference range was not used to interpret this result as normal/abnormal . Bacteria, UA (test Rare code = 94508-4) Mucus (test code = Rare 8247-9) Squam Epithel, UA 5 See_Comment [Automate d (test code = 05864-8) messag e] The system which generated this result transmitted reference range : /HPF. The reference range was not used to interpret this result as normal/abnormal . Crystals, Urine (test Occasional None Seen A code = 52922-9) Specimen Source (test code = 2795) SUMEET (test code = SUMEET) Sales And Operations Trainee ID - tech Lab Interpretation Abnormal (test code = 73978-4) [facility] to Culture 2022-07-24 23:49:44 Test Item Value Reference Range Interpretation Comments Color, UA (test code Dark Yellow = 5778-6) Clarity, UA (test Slightly Hazy code = 5767-9) Specific [place], UA 1.020 1.001-1.035 (test code = 5811-5) pH, UA (test code = 7.0 5.0-8.0 5803-2) Protein, UA (test 30 mg/dL negative A code = 32946-1) Glucose, UA (test Negative Negative code = 365) Ketones, UA (test Negative negative code = 2514-8) Bilirubin, UA (test Negative Negative code = 78299-9) Blood, UA (test code Trace Negative A = 87916-2) Nitrite, UA (test Negative Negative code = 5802-4) Leukocytes, UA (test Negative Negative code = 5799-2) Urobilinogen, UA 0.2 (test code = 28439-3) RBC, UA (test code = 9 See_Comment [Autom ated 60746-9) message] The system which generated this result transmitted reference range : /HPF. The reference range was not used to interpret this result as normal/abnormal . WBC, UA (test code = 4 See_Comment [Autom ated 5821-4) message] The system which generated this result transmitted reference range : /HPF. The reference range was not used to interpret this result as normal/abnormal . Bacteria, UA (test Rare code = 34738-7) Mucus (test code = Rare 8247-9) Squam Epithel, UA 5 See_Comment [Automate d (test code = 13177-8) messag e] The system which generated this result transmitted reference range : /HPF. The reference range was not used to interpret this result as normal/abnormal . Crystals, Urine (test Occasional None Seen A code = 32408-3) Specimen Source (test code = 2795) SUMEET (test code = SUMEET) Sales And Operations Trainee ID - tech Lab Interpretation Abnormal (test code = 54226-2) [facility] + Reflex to Culture 2022-07-24 23:49:44 Test Item Value Reference Range Interpretation Comments Color, UA (test code Dark Yellow = 5778-6) Clarity, UA (test Slightly Hazy code = 5767-9) Specific [place], UA 1.020 1.001-1.035 (test code = 5811-5) pH, UA (test code = 7.0 5.0-8.0 5803-2) Protein, UA (test 30 mg/dL negative A code = 39473-0) Glucose, UA (test Negative Negative code = 365) Ketones, UA (test Negative negative code = 2514-8) Bilirubin, UA (test Negative Negative code = 21516-5) Blood, UA (test code Trace Negative A = 58963-9) Nitrite, UA (test Negative Negative code = 5802-4) Leukocytes, UA (test Negative Negative code = 5799-2) Urobilinogen, UA 0.2 (test code = 86811-2) RBC, UA (test code = 9 See_Comment [Autom ated 19541-6) message] The system which generated this result transmitted reference range : /HPF. The reference range was not used to interpret this result as normal/abnormal . WBC, UA (test code = 4 See_Comment [Autom ated 5821-4) message] The system which generated this result transmitted reference range : /HPF. The reference range was not used to interpret this result as normal/abnormal . Bacteria, UA (test Rare code = 49892-2) Mucus (test code = Rare 8247-9) Squam Epithel, UA 5 See_Comment [Automate d (test code = 94060-5) messag e] The system which generated this result transmitted reference range : /HPF. The reference range was not used to interpret this result as normal/abnormal . Crystals, Urine (test Occasional None Seen A code = 70918-0) Specimen Source (test code = 2795) SUMEET (test code = SUMEET) Sales And Operations Trainee ID - tech Lab Interpretation Abnormal (test code = 23687-3) [facility] URINE [id number] 23:49:44 Test Item Value Reference Range Interpretation Comments COLOR (BEAKER) (test code = Dark Yellow 470) CLARITY (BEAKER) (test code = Slightly Hazy 469) SPECIFIC GRAVITY UA (BEAKER) 1.020 1.001-1.035 (test code = 468) PH UA (BEAKER) (test code = 7.0 5.0-8.0 467) PROTEIN UA (BEAKER) (test code 30 mg/dL negative A = 464) GLUCOSE UA (BEAKER) (test code Negative Negative = 365) KETONES UA (BEAKER) (test code Negative negative = 371) BILIRUBIN UA (BEAKER) (test Negative Negative code = 462) BLOOD UA (BEAKER) (test code = Trace Negative A 461) NITRITE UA (BEAKER) (test code Negative Negative = 465) LEUKOCYTE ESTERASE UA (BEAKER) Negative Negative (test code = 466) UROBILINOGEN UA (BEAKER) (test 0.2 code = 463) RBC UA (BEAKER) (test code = 9 /HPF 519) WBC UA (BEAKER) (test code = 4 /HPF 520) BACTERIA (BEAKER) (test code = Rare 517) MUCUS (BEAKER) (test code = Rare 1574) SQUAMOUS EPITHELIAL (BEAKER) 5 /HPF (test code = 516) CRYSTALS, URINE (BEAKER) (test Occasional None Seen A code = 1521) SOURCE(BEAKER) (test code = 7697) Sales And Operations Trainee ID - techSARS-CoV2/Influenza/RSV RT-PCR (Symptomatic ONLY)2022-07-24 22:41:59 Test Item Value Reference Interpretation Comments Range SARS-COV2/RT-PCR Negative Negative The SARS-Co V-2 (test code = target nucleic 44980-0) acids are not detected in [facility] s specimen. Negat leonardo results do not preclude SARS-C oV-2 infection and should not be u sed as the sole bas is for patient management decisions. Nega tive results must be combined with clinical observations, patient history , and epidemiolog ical information. A false negative result may occu r if a specimen is improperly collected, transported or handled. This S ARS CoV-2 test is a rapid, real-lavern e RT-PCR test intended for e qualitative detection of nucleic acid fr om SARS-CoV-2 in a nasopharyngeal swab specimen [place] [place] from individual s suspected of COVID-19 by the healthcare provider. Influenza A RT-PCR Negative Negative The Flu A target (test code = [place] re 13527-2) not detected in this specimen. Influenza B RT-PCR Negative Negative The Flu B target (test code = [place] 18584-5) not detected in this specimen. RSV by RT-PCR (test Negative Negative The RSV target code = 13783-3) nucleic acid s are not detected in this specimen. SUMEET (test code = The presence of SUMEET) SARS-CoV-2/FLU/RSV viral nucleic acids cannot rule out co-infections or disease caused by other viral or bacterial pathogens. As with any molecular test, mutations within the target regions of the Xpert Xpress SARS-CoV-2/Flu/RSV test could affect primer and/or probe binding resulting in failure to detect the presence of virus or the virus being detected less predictably. False negative results may occur if the virus is present at levels below the analytical limit of detection in this specimen. This Xpert Xpress SARS-CoV-2/Flu/RSV test is a rapid, real-time RT-PCR test intended for the qualitative detection of nucleic acid from Xpert Xpress SARS-CoV-2/Flu/RSV in a nasopharyngeal swab specimen collected from individuals suspected of Xpert Xpress SARS-CoV-2/Flu/RSV by their healthcare provider. Results from braden Xpert Xpress SARS-CoV-2/Flu/RSV test should be correlated with the clinical history, epidemiological data, and other data available to the clinician evaluating the patient. Viral nucleic acid may persist in vivo, independent of virus viability. Detection of analyte target(s) does not imply that the corresponding virus(es) are infectious or are the causative agents for clinical symptoms. This test has not been Food and Drug Administration (FDA) cleared or approved and has been authorized by FDA under an Emergency Use Authorization (EUA). This EUA will be effective until the declaration that circumstances exist justifying the authorization of the emergency use of in vitro diagnostic tests for detection and/or diagnosis of COVID-19 is terminated under Section 564(b)(2) of the Act or the EUA is revoked under Section 564(g) of the Act. Fact Sheet for Healthcare Providers:https://w ww.[employer].[facility]/Docu ments/Xpert%20Xpres s%20SARS%20CoV-2/Fa ct%20Sheets/302-390 2%15MGHO-HLY-7%20HE ALTHCARE%20PROVIDER S%20FACT%20SHEET.pd f Fact Sheet for Healthcare Patients:https://ww w.[employer]/Docum ents/Xpert%20Xpress %20SARS%20Cov-2/Fac t%20Sheets/302-3801 %49QBOU-NXY-4%20PAT IENT%20FACT%20SHEET .pdf Lab Interpretation Normal (test code = 07684-0) [facility] (Symptomatic ONLY) 2022-07-24 22:41:59 Test Item Value Reference Interpretation Comments Range SARS-COV2/RT-PCR Negative Negative The SARS-Co V-2 (test code = target nucleic 43198-6) acids are not detected in thi s specimen. Negat leonardo results do not preclude SARS-C oV-2 infection and should not be u sed as the sole bas is for patient management decisions. Nega tive results must be combined with clinical observations, patient history , and epidemiolog ical information. A false negative result may occu r if a specimen is improperly collected, transported or handled. This S ARS CoV-2 test is a rapid, real-lavern e RT-PCR test intended for th e qualitative detection of nucleic acid fr om SARS-CoV-2 in a nasopharyngeal swab specimen [facility] from individual s suspected of COVID-19 by the ir healthcare provider. Influenza A RT-PCR Negative Negative The Flu A target (test code = [place] [address]-7) not detected in this specimen. Influenza B RT-PCR Negative Negative The Flu B target (test code = [place] 51048-3) not detected in this specimen. RSV by RT-PCR (test Negative Negative The RSV target code = 99511-0) nucleic acid s are not detected in this specimen. SUMEET (test code = The presence of SUMEET) SARS-CoV-2/FLU/RSV viral nucleic acids cannot rule out co-infections or disease caused by other viral or bacterial pathogens. As with any molecular test, mutations within the target regions of the Xpert Xpress SARS-CoV-2/Flu/RSV test could affect primer and/or probe binding resulting in failure to detect the presence of virus or the virus being detected less predictably. False negative results may occur if the virus is present at levels below the analytical limit of detection in this specimen. This Xpert Xpress SARS-CoV-2/Flu/RSV test is a rapid, real-time RT-PCR test intended for the qualitative detection of nucleic acid from Xpert Xpress SARS-CoV-2/Flu/RSV in a nasopharyngeal swab specimen collected from individuals suspected of Xpert Xpress SARS-CoV-2/Flu/RSV by their healthcare provider. Results from [facility] Xpert Xpress SARS-CoV-2/Flu/RSV test should be correlated with the clinical history, epidemiological data, and other data available to the clinician evaluating the patient. Viral nucleic acid may persist in vivo, independent of virus viability. Detection of analyte target(s) does not imply that the corresponding virus(es) are infectious or are the causative agents for clinical symptoms. This test has not been Food and Drug Administration (FDA) cleared or approved and has been authorized by FDA under an Emergency Use Authorization (EUA). This EUA will be effective until the declaration that circumstances exist justifying the authorization of the emergency use of in vitro diagnostic tests for detection and/or diagnosis of COVID-19 is terminated under Section 564(b)(2) of the Act or the EUA is revoked under Section 564(g) of the Act. Fact Sheet for Healthcare Providers:https://w [employer]/Docu ments/Xpert%20Xpres s%20SARS%20CoV-2/Fa ct%20Sheets/302-390 2%70KUCD-SKM-6%20HE ALTHCARE%20PROVIDER S%20FACT%20SHEET.pd f Fact Sheet for Healthcare Patients:https://[employer]/Docum ents/Xpert%20Xpress %20SARS%20Cov-2/Fac t%20Sheets/302-3801 %75SOHS-VST-7%20PAT IENT%20FACT%20SHEET .pdf Lab Interpretation Normal (test code = 97660-5) [facility]Symptomatic ONLY) 2022-07-24 22:41:59 Test Item Value Reference Interpretation Comments Range SARS-COV2/RT-PCR Negative Negative The SARS-Co V-2 (test code = target nucleic 43494-6) acids are not detected in thi s specimen. Negat leonardo results do not preclude SARS-C oV-2 infection and should not be u sed as the sole bas is for patient management decisions. Nega tive results must be combined with clinical observations, patient history , and epidemiolog ical information. A false negative result may occu r if a specimen is improperly collected, transported or handled. This S ARS CoV-2 test is a rapid, real-lavern e RT-PCR test intended for e qualitative detection of nucleic acid fr om SARS-CoV-2 in a nasopharyngeal swab specimen collec brook from individual s suspected of COVID-19 by the ir healthcare provider. Influenza A RT-PCR Negative Negative The Flu A target (test code = [place] [address]-7) not detected in this specimen. Influenza B RT-PCR Negative Negative The Flu B target (test code = [place] 34605-8) not detected in this specimen. RSV by RT-PCR (test Negative Negative The RSV target code = 59072-1) nucleic acid s are not detected in this specimen. SUMEET (test code = The presence of SUMEET) SARS-CoV-2/FLU/RSV viral nucleic acids cannot rule out co-infections or disease caused by other viral or bacterial pathogens. As with any molecular test, mutations within the target regions of the Xpert Xpress SARS-CoV-2/Flu/RSV test could affect primer and/or probe binding resulting in failure to detect the presence of virus or the virus being detected less predictably. False negative results may occur if the virus is present at levels below the analytical limit of detection in this specimen. This Xpert Xpress SARS-CoV-2/Flu/RSV test is a rapid, real-time RT-PCR test intended for the qualitative detection of nucleic acid from Xpert Xpress SARS-CoV-2/Flu/RSV in a nasopharyngeal swab specimen collected from individuals suspected of Xpert Xpress SARS-CoV-2/Flu/RSV by their healthcare provider. Results from [facility] Xpert Xpress SARS-CoV-2/Flu/RSV test should be correlated with the clinical history, epidemiological data, and other data available to the clinician evaluating the patient. Viral nucleic acid may persist in vivo, independent of virus viability. Detection of analyte target(s) does not imply that the corresponding virus(es) are infectious or are the causative agents for clinical symptoms. This test has not been Food and Drug Administration (FDA) cleared or approved and has been authorized by FDA under an Emergency Use Authorization (EUA). This EUA will be effective until the declaration that circumstances exist justifying the authorization of the emergency use of in vitro diagnostic tests for detection and/or diagnosis of COVID-19 is terminated under Section 564(b)(2) of the Act or the EUA is revoked under Section 564(g) of the Act. Fact Sheet for Healthcare Providers:https://w [employer]/Docu ments/Xpert%20Xpres s%20SARS%20CoV-2/Fa ct%20Sheets/302-390 2%48WSXK-YHI-4%20HE ALTHCARE%20PROVIDER S%20FACT%20SHEET.pd f Fact Sheet for Healthcare Patients:https://[employer]/Docum ents/Xpert%20Xpress %20SARS%20Cov-2/Fac t%20Sheets/302-3801 %95IPBT-EAJ-8%20PAT IENT%20FACT%20SHEET .pdf Lab Interpretation Normal (test code = 23092-1) [facility]RSV [id number] 22:41:59 Test Item Value Reference Range Interpretation Comments SARS-COV2/RT-PCR Negative Negative The SARS-Co V-2 target (test code = nucleic acids a re not 8837444) detected in thi s specimen. Negat leonardo results do not preclude SARS-CoV-2 infe ction and should not be u sed as the sole basis for patient management deci sions. Negative result s must be combined with c linical observations, p atient history, and epidemiological information. A false negative result may occur if a specimen i s improperly joseph ected, transported or handled. This SARS CoV-2 test is a rapid, real-lavern e RT-PCR test intended f or the qualitative det ection of nucleic acid fr om SARS-CoV-2 in a nasopharyngeal swab specimen collec brook from individuals emperatriz pected of COVID-19 by the [employer] [facility] ide. INFLUENZA A RT-PCR Negative Negative The Flu A target nucleic (test code = acids are not d etected in 19100811) this specimen. INFLUENZA B RT-PCR Negative Negative The Flu B target nucleic (test code = acids are not d etected in 19100812) this specimen. RSV RT-PCR (test Negative Negative The RSV tar get nucleic code = 9190538) acids are no t detected in this specimen. The presence of SARS-CoV-2/FLU/RSV viral nucleic acids cannot rule out co- infections or disease caused by other viral or bacterial pathogens. As with any molecular test, mutations within the target regions of the Xpert Xpress SARS-CoV-2/Flu/RSV test could affect primer and/or probe binding resulting in failure to detect the presence of virus or the virus being detected less predictably. False negative results may occur if the virus is present at levels below the analytical limit of detection in thisspecimen.This Xpert Xpress SARS-CoV-2/Flu/RSV test is a rapid, real-time RT-PCR test intended for the qualitative detection of nucleic acid from Xpert Xpress SARS-CoV-2/Flu/RSV in a nasopharyngeal swabspecimen collected from individuals suspected of Xpert Xpress SARS-CoV-2/Flu/RSV by their healthcareprovider. Results from [facility] Xpert Xpress SARS-CoV-2/Flu/RSV test should be correlated with the clinical history, epidemiological data, and other data available to the clinician evaluating the patient. Viral nucleic acid may persist in vivo, independent of virus viability. Detection of analyte target(s)does not imply that the corresponding virus(es) are infectious or are the causative agents for clinical symptoms.This test has not been Food and Drug Administration (FDA) cleared or approved and has been authorized by FDA under an Emergency Use Authorization (EUA). This EUA will be effective until thedeclaration that circumstances exist justifying the authorization of the emergency use of in vitro diagnostic tests for detection and/or diagnosis of COVID-19 is terminated under Section 564(b)(2) of the Act or the EUA is revoked under Section 564(g) of the Act.Fact Sheet for Healthcare Providers:https ://www.[employer]/Documents/Xpert%20Xpress%20SARS%20CoV-2/Fact%20Sheets/302-390 2%90KSVN-HXY-1%20HEALTHCARE%20PROVIDERS%20FACT%20SHEET.pdfFact Sheet for Healthcare Patients:https://www.[employer]/Docum ents/Xpert%20Xpress%20SARS%20Cov-2/Fact%20Sheets/3023801%72WMRJ-BSJ-3%20PATIENT %20FACT%20SHEET.pdfCOMPREHENSIVE METABOLIC [id number] 22:16:49 Test Item Value Reference Range Interpretation Comments TOTAL PROTEIN 7.6 gm/dL 6.0-8.3 (BEAKER) (test code = 770) ALBUMIN (BEAKER) 3.5 g/dL 3.5-5.0 (test code = 1145) ALKALINE 170 U/L 40-150 H PHOSPHATASE (BEAKER) (test code = 346) BILIRUBIN TOTAL 0.4 mg/dL 0.2-1.2 (BEAKER) (test code = 377) SODIUM (BEAKER) 128 meq/L 136-145 L (test code = 381) POTASSIUM (BEAKER) 3.2 meq/L 3.5-5.1 L (test code = 379) CHLORIDE (BEAKER) 97 meq/L 98-107 L (test code = 382) CO2 (BEAKER) (test 20 meq/L 22-29 L code = 355) BLOOD UREA 8 mg/dL 7-21 NITROGEN (BEAKER) (test code = 354) CREATININE 0.59 mg/dL 0.57-1.25 (BEAKER) (test code = 358) GLUCOSE RANDOM 114 mg/dL 70-105 H (BEAKER) (test code = 652) CALCIUM (BEAKER) 8.4 mg/dL 8.4-10.2 (test code = 697) AST (SGOT) 14 U/L 5-34 (BEAKER) (test code = 353) ALT (SGPT) 32 U/L 6-55 (BEAKER) (test code = 347) EGFR (BEAKER) 126 Interpretatio n of eGFR (test code = 1092) mL/min/1.[address] age Description sq m Result G1 Francine l or high >=90 G2 Mildly decreased 60-89 G3a Mildl y to moderately 45-5 9 G3b Moderately to s everely 30-44 G4 Sever ly decreased 15-29 G5 Kidney failure <15Repo rted eGFR is based on the CKD-EPI 2020 equation t hat does not use a race coefficientEsti mated GFR is not as accur ate as Creatinine Em kenan in predicting glom erular filtration rate . Estimated GFR is not appl icable for dialysis patien ts Sales And Operations Trainee ID - BSLACTIC ACID, [id number] 22:15:29 Test Item Value Reference Range Interpretation Comments LACTATE BLOOD VENOUS (2) (BEAKER) 1.62 mmol/L 0.50-2.20 (test code = 2872) Sales And Operations Trainee ID - [id number] 22:08:09 Test Item Value Reference Range Interpretation Comments PARTIAL THROMBOPLASTIN TIME 35.1 seconds 22.5-36.0 (BEAKER) (test code = 760) PROTHROMBIN TIME/[id number] 22:07:28 Test Item Value Reference Range Interpretation Comments PROTIME (BEAKER) 16.1 seconds 11.9-14.2 H (test code = 759) INR (BEAKER) (test 1.37 See_Comment [Automat ed message] code = 370) The system [employer] generated this result transmitted ref erence range: <=5.90. The reference range was not used to int erpret this result as normal/abnormal . RECOMMENDED COUMADIN/WARFARIN INR THERAPY RANGESSTANDARD DOSE: 2.0 - 3.0 Includes: PROPHYLAXIS for venous thrombosis, systemic embolization; TREATMENT for venous thrombosis and/or pulmonary embolus.HIGH RISK: Target INR is 2.5-3.5 for patients with mechanical heart valves.RAD, CHEST, 1 VIEW, NON [id number] 22:05:00Reason for exam:->FEVERReason for exam:->NAUSEAShould this be performed at the bedside?->Yes [facility] 1985 Sex: MFINAL REPORT TECHNIQUE: Frontal view of the chest. INDICATION: FEVERNAUSEA. COMPARISON: 07/09/2022. FINDINGS: LINES/TUBES: Right IJ port with catheter tip projecting over the distal SVC. HEART AND MEDIASTINUM: Cardiomediastinal contour is stable. LUNGS: Numerous scattered pulmonary nodules of varying sizes decreasing conspicuity and likely slightly decreased in size compared to theprior examination. No consolidation or pulmonary edema. PLEURA: No pneumothorax. No significant pleural effusion. SOFT TISSUES AND BONES: Incompletely included thoracolumbar spinal fixation hardware.. I MPRESSION:Numerous scattered pulmonary nodules/metastases, decreasing conspicuity and likely slightly decreased in size. No pulmonary edema or focal consolidative process. Signed: Mitch Segovia MDReport Verified Date/Time: 07/24/2022 22:05:41 Electronically signed by: Sruthi DUFFY 07/24/2022 10:05 PMCBC W/PLT COUNT & AUTO [id number] 07:53:20 Test Item Value Reference Range Interpretation Comments WHITE BLOOD CELL COUNT (BEAKER) 11.1 K/ L 3.5-10.5 H (test code = 775) RED BLOOD CELL COUNT (BEAKER) 3.65 M/ L 4.63-6.08 L (test code = 761) HEMOGLOBIN (BEAKER) (test code = 9.3 GM/DL 13.7-17.5 L 410) HEMATOCRIT (BEAKER) (test code = 29.8 % 40.1-51.0 L 411) MEAN CORPUSCULAR VOLUME (BEAKER) 82 fL 79-92 (test code = 753) MEAN CORPUSCULAR HEMOGLOBIN 25.5 pg 25.7-32.2 L (BEAKER) (test code = 751) MEAN CORPUSCULAR HEMOGLOBIN CONC 31.2 GM/DL 32.3-36.5 L (BEAKER) (test code = 752) RED CELL DISTRIBUTION WIDTH 14.3 % 11.6-14.4 (BEAKER) (test code = 412) PLATELET COUNT (BEAKER) (test 536 K/CU MM 150-450 H code = 756) MEAN PLATELET VOLUME (BEAKER) 8.6 fL 9.4-12.4 L (test code = 754) NUCLEATED RED BLOOD CELLS 0 /100 WBC 0-0 (BEAKER) (test code = 413) (CELLAVISION MANUAL DIFF)2022-07-18 07:53:20 Test Item Value Reference Range Interpretation Comments NEUTROPHILS - REL 94 % (CELLAVISION)(BEAKER) (test code = 2816) LYMPHOCYTES - REL 6 % (CELLAVISION)(BEAKER) (test code = 2817) NEUTROPHILS - ABS 10.43 K/ul 1.78-5.38 H (CELLAVISION)(BEAKER) (test code = 2830) LYMPHOCYTES - ABS 0.67 K/ul 1.32-3.57 L (CELLAVISION)(BEAKER) (test code = 2831) TOTAL COUNTED (BEAKER) (test code 100 = 1351) RBC MORPHOLOGY (BEAKER) (test code Normal = 762) WBC MORPHOLOGY (BEAKER) (test code Normal = 487) GIANT PLATELETS (BEAKER) (test Present code = 313) ARTIFACT (CELLAVISION)(BEAKER) Present (test code = 3432) PLATELET CONCENTRATION Increased (CELLAVISION)(BEAKER) (test code = 3438) Sales And Operations Trainee ID - giovanny Mojica comments: Slide comments:URIC [id number] 04:52:45 Test Item Value Reference Range Interpretation Comments URIC ACID (BEAKER) (test code = 1.7 mg/dL 2.6-7.2 L 773) Sales And Operations Trainee ID - YARED [id number] 04:52:16 Test Item Value Reference Range Interpretation Comments PHOSPHORUS (BEAKER) (test code = 2.5 mg/dL 2.3-4.7 604) Sales And Operations Trainee ID - YARED GHEPATIC FUNCTION [id number] 04:52:16 Test Item Value Reference Range Interpretation Comments TOTAL PROTEIN (BEAKER) (test code = 7.8 gm/dL 6.0-8.3 770) ALBUMIN (BEAKER) (test code = 1145) 3.2 g/dL 3.5-5.0 L BILIRUBIN TOTAL (BEAKER) (test code 0.4 mg/dL 0.2-1.2 = 377) BILIRUBIN DIRECT (BEAKER) (test 0.2 mg/dL 0.1-0.5 code = 706) ALKALINE PHOSPHATASE (BEAKER) (test 108 U/L 40-150 code = 346) AST (SGOT) (BEAKER) (test code = 18 U/L 5-34 353) ALT (SGPT) (BEAKER) (test code = 14 U/L 6-55 347) Sales And Operations Trainee ID - YARED GBASIC METABOLIC [id number] 04:52:15 Test Item Value Reference Range Interpretation Comments SODIUM (BEAKER) 130 meq/L 136-145 L (test code = 381) POTASSIUM 4.2 meq/L 3.5-5.1 (BEAKER) (test code = 379) CHLORIDE (BEAKER) 102 meq/L 98-107 (test code = 382) CO2 (BEAKER) 19 meq/L 22-29 L (test code = 355) BLOOD UREA 11 mg/dL 7-21 NITROGEN (BEAKER) (test code = 354) CREATININE 0.58 mg/dL 0.57-1.25 (BEAKER) (test code = 358) GLUCOSE RANDOM 104 mg/dL 70-105 (BEAKER) (test code = 652) CALCIUM (BEAKER) 8.6 mg/dL 8.4-10.2 (test code = 697) EGFR (BEAKER) 127 Interpretatio n of eGFR (test code = mL/min/1.73 values Stage De scription 1092) sq m Result G1 Francine l or high >=90 G2 Mildly decreased 60-89 G3a Mildl y to moderately 45-5 9 G3b Moderately to s everely 30-44 G4 Sever ly decreased 15-29 G5 Kidney failure <15Repo rted eGFR is based on the CKD-EPI 2020 equation t hat does not use a race coefficientEsti mated GFR is not as accur ate as Creatinine Em grayson in predicting glom erular filtration rate . Estimated GFR is not appl icable for dialysis patien ts Sales And Operations Trainee ID - YARED GHEPATIC FUNCTION [id number] 05:41:39 Test Item Value Reference Range Interpretation Comments TOTAL PROTEIN (BEAKER) (test code = 8.2 gm/dL 6.0-8.3 770) ALBUMIN (BEAKER) (test code = 1145) 3.4 g/dL 3.5-5.0 L BILIRUBIN TOTAL (BEAKER) (test code 0.4 mg/dL 0.2-1.2 = 377) BILIRUBIN DIRECT (BEAKER) (test 0.2 mg/dL 0.1-0.5 code = 706) ALKALINE PHOSPHATASE (BEAKER) (test 138 U/L 40-150 code = 346) AST (SGOT) (BEAKER) (test code = 16 U/L 5-34 353) ALT (SGPT) (BEAKER) (test code = 14 U/L 6-55 347) Sales And Operations Trainee ID - PIAYA [id number] 05:41:38 Test Item Value Reference Range Interpretation Comments PHOSPHORUS (BEAKER) (test code = 2.8 mg/dL 2.3-4.7 604) Sales And Operations Trainee ID - PIAYA LURIC [id number] 05:41:38 Test Item Value Reference Range Interpretation Comments URIC ACID (BEAKER) (test code = 2.3 mg/dL 2.6-7.2 L 773) Sales And Operations Trainee ID - PIAYA LBASIC METABOLIC [id number] 05:41:37 Test Item Value Reference Range Interpretation Comments SODIUM (BEAKER) 131 meq/L 136-145 L (test code = 381) POTASSIUM 4.2 meq/L 3.5-5.1 (BEAKER) (test code = 379) CHLORIDE (BEAKER) 102 meq/L 98-107 (test code = 382) CO2 (BEAKER) 20 meq/L 22-29 L (test code = 355) BLOOD UREA 11 mg/dL 7-21 NITROGEN (BEAKER) (test code = 354) CREATININE 0.59 mg/dL 0.57-1.25 (BEAKER) (test code = 358) GLUCOSE RANDOM 104 mg/dL 70-105 (BEAKER) (test code = 652) CALCIUM (BEAKER) 9.1 mg/dL 8.4-10.2 (test code = 697) EGFR (BEAKER) 126 Interpretatio n of eGFR (test code = mL/min/1.73 values Stage De scription 1092) sq m Result G1 Francine l or high >=90 G2 Mildly decreased 60-89 G3a Mildl y to moderately 45-5 9 G3b Moderately to s everely 30-44 G4 Severl y decreased 15-29 G5 Kidney failure <15Reported eGF R is based on the CKD-EPI 202 equation that d oes not use a race coefficientEsti mated GFR is not as accur ate as Creatinine Em grayson in predicting glom erular filtration rate . Estimated GFR is not appl icable for dialysis patien ts Sales And Operations Trainee ID - PIAYA LCBC W/PLT COUNT & AUTO [id number] 05:13:44 Test Item Value Reference Range Interpretation Comments WHITE BLOOD CELL COUNT (BEAKER) 12.8 K/ L 3.5-10.5 H (test code = 775) RED BLOOD CELL COUNT (BEAKER) 3.82 M/ L 4.63-6.08 L (test code = 761) HEMOGLOBIN (BEAKER) (test code = 9.8 GM/DL 13.7-17.5 L 410) HEMATOCRIT (BEAKER) (test code = 31.5 % 40.1-51.0 L 411) MEAN CORPUSCULAR VOLUME (BEAKER) 83 fL 79-92 (test code = 753) MEAN CORPUSCULAR HEMOGLOBIN 25.7 pg 25.7-32.2 (BEAKER) (test code = 751) MEAN CORPUSCULAR HEMOGLOBIN CONC 31.1 GM/DL 32.3-36.5 L (BEAKER) (test code = 752) RED CELL DISTRIBUTION WIDTH 14.5 % 11.6-14.4 H (BEAKER) (test code = 412) PLATELET COUNT (BEAKER) (test 547 K/CU MM 150-450 H code = 756) MEAN PLATELET VOLUME (BEAKER) 8.7 fL 9.4-12.4 L (test code = 754) NUCLEATED RED BLOOD CELLS 0 /100 WBC 0-0 (BEAKER) (test code = 413) NEUTROPHILS RELATIVE PERCENT 91 % (BEAKER) (test code = 429) LYMPHOCYTES RELATIVE PERCENT 8 % (BEAKER) (test code = 430) MONOCYTES RELATIVE PERCENT 1 % (BEAKER) (test code = 431) EOSINOPHILS RELATIVE PERCENT 0 % (BEAKER) (test code = 432) BASOPHILS RELATIVE PERCENT 0 % (BEAKER) (test code = 437) NEUTROPHILS ABSOLUTE COUNT 11.65 K/ L 1.78-5.38 H (BEAKER) (test code = 670) LYMPHOCYTES ABSOLUTE COUNT 0.96 K/ L 1.32-3.57 L (BEAKER) (test code = 414) MONOCYTES ABSOLUTE COUNT (BEAKER) 0.09 K/ L 0.30-0.82 L (test code = 415) EOSINOPHILS ABSOLUTE COUNT 0.00 K/ L 0.04-0.54 L (BEAKER) (test code = 416) BASOPHILS ABSOLUTE COUNT (BEAKER) 0.01 K/ L 0.01-0.08 (test code = 417) IMMATURE GRANULOCYTES-RELATIVE 0.70 % 0.00-1.00 PERCENT (BEAKER) (test code = 2801) SARS-CoV2/RT-PCR (Asymptomatic ONLY)2022-07-16 23:26:07 Test Item Value Reference Interpretation Comments Range SARS-COV2/RT-PCR Negative Negative The SARS-Co V-2 (test code = target nucleic 19225-0) acids are not detected in thi s specimen. Negat leonardo results do not preclude SARS-C oV-2 infection and should not be u sed as the sole bas is for patient management decisions. Nega tive results must be combined with clinical observations, patient history , and epidemiolog ical information. A false negative result may occu r if a specimen is improperly collected, transported or handled. This S ARS CoV-2 test is a rapid, real-lavern e RT-PCR test intended for th e qualitative detection of nucleic acid fr om SARS-CoV-2 in a nasopharyngeal swab specimen colle brook from individual s suspected of COVID-19 by the ir healthcare provider. SUMEET (test code = This test has been SUMEET) authorized by FDA under an EUA for use by authorized laboratories. This test is only authorized for the duration of the declaration that circumstances exist justifying the authorization of emergency use of in vitro diagnostic tests for detection and/or diagnosis of COVID-19 under Section 564(b)(1) of the Federal Food, Drug and Cosmetic Act, 21 U.S.C. 360bbb-3(b)(1), unless the authorization is terminated or revoked sooner. Fact Sheet for Healthcare Providers: https://www.[employer]/Documents/Xp ert%20Xpress%20SAR S%20CoV-2/Fact%20S heets/260-7396%20S ARS-COV-2%20HEALTH CARE%20PROVIDERS%2 0FACT%20SHEET.pdf Fact Sheet for Healthcare Patients: https://www.[employer]/Documents/Xp ert%20Xpress%20SAR S%20CoV-2/Fact%20S heets/302-3801%20S ARS-COV-2%20PATIEN T%20FACT%20SHEET.p df Lab Interpretation Normal (test code = 81919-6) [facility]16 23:26:07 Test Item Value Reference Interpretation Comments Range SARS-COV2/RT-PCR Negative Negative The SARS-Co V-2 (test code = target nucleic 79079-8) acids are not detected in thi s specimen. Negat leonardo results do not preclude SARS-C oV-2 infection and should not be u sed as the sole bas is for patient management decisions. Nega tive results must be combined with clinical observations, patient history , and epidemiolog ical information. A false negative result may occu r if a specimen is improperly collected, transported or handled. This S ARS CoV-2 test is a rapid, real-lavern e RT-PCR test intended for th e qualitative detection of nucleic acid fr om SARS-CoV-2 in a nasopharyngeal swab specimen collec brook from individual s suspected of COVID-19 by the ir healthcare provider. SUMEET (test code = This test has been SUMEET) authorized by FDA under an EUA for use by authorized laboratories. This test is only authorized for the duration of the declaration that circumstances exist justifying the authorization of emergency use of in vitro diagnostic tests for detection and/or diagnosis of COVID-19 under Section 564(b)(1) of the Federal Food, Drug and Cosmetic Act, 21 U.S.C. 360bbb-3(b)(1), unless the authorization is terminated or revoked sooner. Fact Sheet for Healthcare Providers: https://www.[employer]/Documents/Xp ert%20Xpress%20SAR S%20CoV-2/Fact%20S heets/3023802%20S ARS-COV-2%20HEALTH CARE%20PROVIDERS%2 0FACT%20SHEET.pdf Fact Sheet for Healthcare Patients: https://www.[employer]/Documents/Xp ert%20Xpress%20SAR S%20CoV-2/Fact%20S heets/302-3801%20S ARS-COV-2%20PATIEN T%20FACT%20SHEET.p df Lab Interpretation Normal (test code = 20789-7) [facility]-16 23:26:07 Test Item Value Reference Interpretation Comments Range SARS-COV2/RT-PCR Negative Negative The SARS-Co V-2 (test code = target nucleic 22754-6) acids are not detected in thi s specimen. Negat leonardo results do not preclude SARS-C oV-2 infection and should not be u sed as the sole bas is for patient management decisions. Nega tive results must be combined with clinical observations, patient history , and epidemiolog ical information. A false negative result may occu r if a specimen is improperly collected, transported or handled. This S ARS CoV-2 test is a rapid, real-lavern e RT-PCR test intended for th e qualitative detection of nucleic acid fr om SARS-CoV-2 in a nasopharyngeal swab specimen collec brook from individual s suspected of COVID-19 by the ir healthcare provider. SUMEET (test code = This test has been SUMEET) authorized by FDA under an EUA for use by authorized laboratories. This test is only authorized for the duration of the declaration that circumstances exist justifying the authorization of emergency use of in vitro diagnostic tests for detection and/or diagnosis of COVID-19 under Section 564(b)(1) of the Federal Food, Drug and Cosmetic Act, 21 U.S.C. 360bbb-3(b)(1), unless the authorization is terminated or revoked sooner. Fact Sheet for Healthcare Providers: https://www.[employer]/Documents/Xp ert%20Xpress%20SAR S%20CoV-2/Fact%20S heets/302-3802%20S ARS-COV-2%20HEALTH CARE%20PROVIDERS%2 0FACT%20SHEET.pdf Fact Sheet for Healthcare Patients: https://www.[employer]/Documents/Xp ert%20Xpress%20SAR S%20CoV-2/Fact%20S heets/302-3801%20S ARS-COV-2%20PATIEN T%20FACT%20SHEET.p df Lab Interpretation Normal (test code = 78587-6) [facility]2022-07-16 23:26:07 Test Item Value Reference Range Interpretation Comments SARS-COV2/RT-PCR Negative Negative The SARS-Co V-2 target (test code = nucleic acids a re not 6318929) detected in thi s specimen. Negative result s do not preclude SARS-C oV-2 infection and s hould not be used as the anthony e basis for patient managem ent decisions. Nega tive results must be combine d with clinical observ ations, patient history , and epidemiological information. A false negativ e result may occur if a spec imen is improperly joseph ected, transported or handled. This SARS CoV-2 test is a rapid, real-time RT-PC R test intended for th e qualitative detection of nu cleic acid from SARS-CoV-2 in a nasopharyngeal swab specimen collected from individuals suspected of CO VID-19 by their healthcar e provider. This test has been authorized by FDA under an EUA for use by authorized laboratories. This test is only authorized for the duration of the declaration that circumstances exist justifying the authorization of emergency use of in vitro diagnostic tests for detection and/or diagnosis of COVID-19 under Section 564(b)(1) of the Federal Food, Drug and Cosmetic Act, 21 U.S.C. 360bbb-3(b)(1), unless the authorization is terminated or revoked sooner. Fact Sheet for Healthcare Providers: https://www.[employer]/Documents/Xpert%20Xpress%20SARS%20CoV-2/Fact%20Sheets/302-3802%33PATC-VEV-6%20 HEALTHCARE%20PROVIDERS%20FACT%20SHEET.pdf Fact Sheet for Healthcare Patients: https://www.[employer]/Documents/Xpert%20Xp ress%20SARS%20CoV-2/Fact%20Sheets/302-3801%29FTPO-PAB-5%20PATIENT%20FACT%20SHEET .pdfSputum Culture + Gram [id number] 21:52:47 Test Item Value Reference Range Interpretation Comments Result (test code = Oropharyngeal 6463-4) contamination, specimen rejected. Recollect requested. Gram Stain Result 3+ gram variable rods (test code = 1123) [facility] [id number] 21:52:47 Test Item Value Reference Range Interpretation Comments Result (test code = Oropharyngeal 6463-4) contamination, specimen rejected. Recollect requested. Gram Stain Result 3+ gram variable rods (test code = 1123) [facility] [id number] 21:52:47 Test Item Value Reference Range Interpretation Comments Result (test code = Oropharyngeal 6463-4) contamination, specimen rejected. Recollect requested. Gram Stain Result 3+ gram variable rods (test code = 1123) [facility] [id number] 21:52:47 Test Item Value Reference Range Interpretation Comments CULTURE (BEAKER) Oropharyngeal (test code = 1095) contamination, specimen rejected. Recollect requested. GRAM STAIN RESULT <1+ WBCs (BEAKER) (test code = 1123) GRAM STAIN RESULT >25/LPF epithelial cells (BEAKER) (test code = 45024) GRAM STAIN RESULT 3+ gram positive cocci in (BEAKER) (test code pairs and clusters = 22099) GRAM STAIN RESULT 1+ yeast (BEAKER) (test code = 425217) GRAM STAIN RESULT 3+ gram variable rods (BEAKER) (test code = 890954) MR, PELVIS, WITHOUT [id number] 10:39:00Unlisted Reason for Exam - Click Yes and Enter Reason Below->No [facility] 1985 Sex: MFINAL REPORT MRI pelvis without contrast. INDICATION: Osteomyelitis suspected, pelvis, xray done COMPARISON: CT dated June 28, 2022 TECHNIQUE: Multiplanar multisequence MRI examination of the pelvis was performed without intravenous gadolinium. FINDINGS: There is a sacral decubitus ulcer in the left buttock region, measuring approximately 5 cm deep, extending to the ischial tuberosity,where soft tissue thickening and trace fluid is noted, but no drainable collection is present. Thereis cortical erosion, mild marrow edema, as well as reactive sclerosis and periosteal reaction at theleft ischial tuberosity, likely reflecting chronic osteomyelitis. At the remaining levels, marrow signal is normal. There is no fracture or malalignment. No hip joint effusion. Symphysis pubis is congruent, SI joints appear unremarkable. There is patchy edema as well as atrophy of the pelvic musculature. Within the pelvis, bladder appears slightly trabeculated. Prostate and seminal vesicles are unrema rkable. No ascites. A few marginally prominent external iliac chain lymph nodes are probably reactive. IMPRESSION: Findings favor chronic osteomyelitis of the left ischial tuberosity. Left decubitus ulcer, no drainable fluid collection Signed: Danis Gordon Verified Date/Time: 07/16/2022 10:39:44 Reading Location: [facility] [id number] Ortho Consult Reading Room MRSA [id number] 10:00:43 Test Item Value Reference Range Interpretation Comments Result (test code = 6463-4) No [facility] [id number] 10:00:43 Test Item Value Reference Range Interpretation Comments Result (test code = 6463-4) No [facility] [id number] 10:00:43 Test Item Value Reference Range Interpretation Comments Result (test code = 6463-4) No [facility] [id number] 10:00:43 Test Item Value Reference Range Interpretation Comments CULTURE (BEAKER) (test code No MRSA isolated = 1095) [id number] 05:30:09 Test Item Value Reference Range Interpretation Comments PHOSPHORUS (BEAKER) (test code = 2.9 mg/dL 2.3-4.7 604) Sales And Operations Trainee ID - MARCOURIC [id number] 05:30:09 Test Item Value Reference Range Interpretation Comments URIC ACID (BEAKER) (test code = 2.9 mg/dL 2.6-7.2 773) Sales And Operations Trainee ID - MARCOHEPATIC FUNCTION [id number] 05:30:09 Test Item Value Reference Range Interpretation Comments TOTAL PROTEIN (BEAKER) (test code = 8.3 gm/dL 6.0-8.3 770) ALBUMIN (BEAKER) (test code = 1145) 3.3 g/dL 3.5-5.0 L BILIRUBIN TOTAL (BEAKER) (test code 0.5 mg/dL 0.2-1.2 = 377) BILIRUBIN DIRECT (BEAKER) (test 0.2 mg/dL 0.1-0.5 code = 706) ALKALINE PHOSPHATASE (BEAKER) (test 126 U/L 40-150 code = 346) AST (SGOT) (BEAKER) (test code = 15 U/L 5-34 353) ALT (SGPT) (BEAKER) (test code = 16 U/L 6-55 347) Sales And Operations Trainee ID - MARCOBASIC METABOLIC [id number] 05:30:08 Test Item Value Reference Range Interpretation Comments SODIUM (BEAKER) 132 meq/L 136-145 L (test code = 381) POTASSIUM 4.2 meq/L 3.5-5.1 (BEAKER) (test code = 379) CHLORIDE (BEAKER) 102 meq/L 98-107 (test code = 382) CO2 (BEAKER) 21 meq/L 22-29 L (test code = 355) BLOOD UREA 11 mg/dL 7-21 NITROGEN (BEAKER) (test code = 354) CREATININE 0.63 mg/dL 0.57-1.25 (BEAKER) (test code = 358) GLUCOSE RANDOM 92 mg/dL 70-105 (BEAKER) (test code = 652) CALCIUM (BEAKER) 9.2 mg/dL 8.4-10.2 (test code = 697) EGFR (BEAKER) 124 Interpretatio n of eGFR (test code = mL/min/1.73 values Stage De scription 1092) sq m Result G1 Francine l or high >=90 G2 Mildly decreased 60-89 G3a Mildl y to moderately 45-5 9 G3b Moderately to s everely 30-44 G4 Severl y decreased 15-29 G5 Kidney failure <15Reported eGF R is based on the CKD-EPI 2020 equation that d oes not use a race coefficientEsti mated GFR is not as accur ate as Creatinine Em kenan in predicting glom erular filtration rate . Estimated GFR is not appl icable for dialysis patien ts Sales And Operations Trainee ID - MARCOCBC W/PLT COUNT & AUTO [id number] 05:14:04 Test Item Value Reference Range Interpretation Comments WHITE BLOOD CELL COUNT (BEAKER) 15.3 K/ L 3.5-10.5 H (test code = 775) RED BLOOD CELL COUNT (BEAKER) 3.97 M/ L 4.63-6.08 L (test code = 761) HEMOGLOBIN (BEAKER) (test code = 10.2 GM/DL 13.7-17.5 L 410) HEMATOCRIT (BEAKER) (test code = 32.6 % 40.1-51.0 L 411) MEAN CORPUSCULAR VOLUME (BEAKER) 82 fL 79-92 (test code = 753) MEAN CORPUSCULAR HEMOGLOBIN 25.7 pg 25.7-32.2 (BEAKER) (test code = 751) MEAN CORPUSCULAR HEMOGLOBIN CONC 31.3 GM/DL 32.3-36.5 L (BEAKER) (test code = 752) RED CELL DISTRIBUTION WIDTH 14.3 % 11.6-14.4 (BEAKER) (test code = 412) PLATELET COUNT (BEAKER) (test 564 K/CU MM 150-450 H code = 756) MEAN PLATELET VOLUME (BEAKER) 8.5 fL 9.4-12.4 L (test code = 754) NUCLEATED RED BLOOD CELLS 0 /100 WBC 0-0 (BEAKER) (test code = 413) NEUTROPHILS RELATIVE PERCENT 87 % (BEAKER) (test code = 429) LYMPHOCYTES RELATIVE PERCENT 10 % (BEAKER) (test code = 430) MONOCYTES RELATIVE PERCENT 2 % (BEAKER) (test code = 431) EOSINOPHILS RELATIVE PERCENT 0 % (BEAKER) (test code = 432) BASOPHILS RELATIVE PERCENT 0 % (BEAKER) (test code = 437) NEUTROPHILS ABSOLUTE COUNT 13.33 K/ L 1.78-5.38 H (BEAKER) (test code = 670) LYMPHOCYTES ABSOLUTE COUNT 1.54 K/ L 1.32-3.57 (BEAKER) (test code = 414) MONOCYTES ABSOLUTE COUNT (BEAKER) 0.33 K/ L 0.30-0.82 (test code = 415) EOSINOPHILS ABSOLUTE COUNT 0.00 K/ L 0.04-0.54 L (BEAKER) (test code = 416) BASOPHILS ABSOLUTE COUNT (BEAKER) 0.01 K/ L 0.01-0.08 (test code = 417) IMMATURE GRANULOCYTES-RELATIVE 0.60 % 0.00-1.00 PERCENT (BEAKER) (test code = 2801) HEPATIC FUNCTION [id number] 06:46:19 Test Item Value Reference Range Interpretation Comments TOTAL PROTEIN (BEAKER) (test code = 8.3 gm/dL 6.0-8.3 770) ALBUMIN (BEAKER) (test code = 1145) 3.3 g/dL 3.5-5.0 L BILIRUBIN TOTAL (BEAKER) (test code 0.2 mg/dL 0.2-1.2 = 377) BILIRUBIN DIRECT (BEAKER) (test 0.1 mg/dL 0.1-0.5 code = 706) ALKALINE PHOSPHATASE (BEAKER) (test 143 U/L 40-150 code = 346) AST (SGOT) (BEAKER) (test code = 16 U/L 5-34 353) ALT (SGPT) (BEAKER) (test code = 18 U/L 6-55 347) Sales And Operations Trainee ID - PIAYA LBASIC METABOLIC [id number] 06:46:18 Test Item Value Reference Range Interpretation Comments SODIUM (BEAKER) 135 meq/L 136-145 L (test code = 381) POTASSIUM 4.3 meq/L 3.5-5.1 (BEAKER) (test code = 379) CHLORIDE (BEAKER) 106 meq/L 98-107 (test code = 382) CO2 (BEAKER) 19 meq/L 22-29 L (test code = 355) BLOOD UREA 9 mg/dL 7-21 NITROGEN (BEAKER) (test code = 354) CREATININE 0.55 mg/dL 0.57-1.25 L (BEAKER) (test code = 358) GLUCOSE RANDOM 111 mg/dL 70-105 H (BEAKER) (test code = 652) CALCIUM (BEAKER) 9.0 mg/dL 8.4-10.2 (test code = 697) EGFR (BEAKER) 129 Interpretatio n of eGFR (test code = mL/min/1.73 values Stage De scription 1092) sq m Result G1 Francine l or high >=90 G2 Mildly decreased 60-89 G3a Mildl y to moderately 45-5 9 G3b Moderately to s everely 30-44 G4 Severl y decreased 15-29 G5 Kidney failure <15Reported eGF R is based on the CKD-EPI 2020 equation that d oes not use a race coefficientEsti mated GFR is not as accur ate as Creatinine Em kenan in predicting glom erular filtration rate . Estimated GFR is not appl icable for dialysis patien ts Sales And Operations Trainee ID - PB [id number] 06:46:18 Test Item Value Reference Range Interpretation Comments PHOSPHORUS (BEAKER) (test code = 2.8 mg/dL 2.3-4.7 604) Sales And Operations Trainee ID - SURJITNOE LURIC [id number] 06:46:18 Test Item Value Reference Range Interpretation Comments URIC ACID (BEAKER) (test code = 2.9 mg/dL 2.6-7.2 773) Sales And Operations Trainee ID - PB LCBC W/PLT COUNT & AUTO [id number] 06:22:27 Test Item Value Reference Range Interpretation Comments WHITE BLOOD CELL COUNT (BEAKER) 20.9 K/ L 3.5-10.5 H (test code = 775) RED BLOOD CELL COUNT (BEAKER) 3.78 M/ L 4.63-6.08 L (test code = 761) HEMOGLOBIN (BEAKER) (test code = 9.8 GM/DL 13.7-17.5 L 410) HEMATOCRIT (BEAKER) (test code = 31.4 % 40.1-51.0 L 411) MEAN CORPUSCULAR VOLUME (BEAKER) 83 fL 79-92 (test code = 753) MEAN CORPUSCULAR HEMOGLOBIN 25.9 pg 25.7-32.2 (BEAKER) (test code = 751) MEAN CORPUSCULAR HEMOGLOBIN CONC 31.2 GM/DL 32.3-36.5 L (BEAKER) (test code = 752) RED CELL DISTRIBUTION WIDTH 14.2 % 11.6-14.4 (BEAKER) (test code = 412) PLATELET COUNT (BEAKER) (test 566 K/CU MM 150-450 H code = 756) MEAN PLATELET VOLUME (BEAKER) 8.7 fL 9.4-12.4 L (test code = 754) NUCLEATED RED BLOOD CELLS 0 /100 WBC 0-0 (BEAKER) (test code = 413) NEUTROPHILS RELATIVE PERCENT 92 % (BEAKER) (test code = 429) LYMPHOCYTES RELATIVE PERCENT 5 % (BEAKER) (test code = 430) MONOCYTES RELATIVE PERCENT 3 % (BEAKER) (test code = 431) EOSINOPHILS RELATIVE PERCENT 0 % (BEAKER) (test code = 432) BASOPHILS RELATIVE PERCENT 0 % (BEAKER) (test code = 437) NEUTROPHILS ABSOLUTE COUNT 19.09 K/ L 1.78-5.38 H (BEAKER) (test code = 670) LYMPHOCYTES ABSOLUTE COUNT 0.97 K/ L 1.32-3.57 L (BEAKER) (test code = 414) MONOCYTES ABSOLUTE COUNT (BEAKER) 0.68 K/ L 0.30-0.82 (test code = 415) EOSINOPHILS ABSOLUTE COUNT 0.00 K/ L 0.04-0.54 L (BEAKER) (test code = 416) BASOPHILS ABSOLUTE COUNT (BEAKER) 0.01 K/ L 0.01-0.08 (test code = 417) IMMATURE GRANULOCYTES-RELATIVE 0.60 % 0.00-1.00 PERCENT (BEAKER) (test code = 2801) BLOOD [id number] 18:00:54 Test Item Value Reference Range Interpretation Comments CULTURE (BEAKER) (test No growth in 5 days code = 1095) BLOOD [id number] 18:00:53 Test Item Value Reference Range Interpretation Comments CULTURE (BEAKER) (test No growth in 5 days code = 1095) BLOOD CULTURE, ROUTINE [id number] 13:35:06 Test Item Value Reference Range Interpretation Comments CULTURE (BEAKER) (test code = 1095) No growth VANCOMYCIN LEVEL, [id number] 09:17:30 Test Item Value Reference Range Interpretation Comments VANCOMYCIN TROUGH (BEAKER) (test 13.6 ug/mL 10.0-20.0 code = 522) Sales And Operations Trainee ID - MARCOURIC [id number] 05:30:07 Test Item Value Reference Range Interpretation Comments URIC ACID (BEAKER) (test code = 3.5 mg/dL 2.6-7.2 773) Sales And Operations Trainee ID - PB LHEPATIC FUNCTION [id number] 05:30:07 Test Item Value Reference Range Interpretation Comments TOTAL PROTEIN (BEAKER) (test code = 8.9 gm/dL 6.0-8.3 H 770) ALBUMIN (BEAKER) (test code = 1145) 3.4 g/dL 3.5-5.0 L BILIRUBIN TOTAL (BEAKER) (test code 0.3 mg/dL 0.2-1.2 = 377) BILIRUBIN DIRECT (BEAKER) (test 0.1 mg/dL 0.1-0.5 code = 706) ALKALINE PHOSPHATASE (BEAKER) (test 169 U/L 40-150 H code = 346) AST (SGOT) (BEAKER) (test code = 20 U/L 5-34 353) ALT (SGPT) (BEAKER) (test code = 21 U/L 6-55 347) Sales And Operations Trainee ID - PINOE LBASIC METABOLIC [id number] 05:30:06 Test Item Value Reference Range Interpretation Comments SODIUM (BEAKER) 136 meq/L 136-145 (test code = 381) POTASSIUM 4.2 meq/L 3.5-5.1 (BEAKER) (test code = 379) CHLORIDE (BEAKER) 106 meq/L 98-107 (test code = 382) CO2 (BEAKER) 22 meq/L 22-29 (test code = 355) BLOOD UREA 7 mg/dL 7-21 NITROGEN (BEAKER) (test code = 354) CREATININE 0.59 mg/dL 0.57-1.25 (BEAKER) (test code = 358) GLUCOSE RANDOM 124 mg/dL 70-105 H (BEAKER) (test code = 652) CALCIUM (BEAKER) 9.3 mg/dL 8.4-10.2 (test code = 697) EGFR (BEAKER) 126 Interpretatio n of eGFR (test code = mL/min/1.73 values Stage De scription 1092) sq m Result G1 Francine l or high >=90 G2 Mildly decreased 60-89 G3a Mildl y to moderately 45-5 9 G3b Moderately to s everely 30-44 G4 Severl y decreased 15-29 G5 Kidney failure <15Reported eGF R is based on the CKD-EPI 2020 equation that d oes not use a race coefficientEsti mated GFR is not as accur ate as Creatinine Em kenan in predicting glom erular filtration rate . Estimated GFR is not appl icable for dialysis patien ts Sales And Operations Trainee ID - PB [id number] 05:30:06 Test Item Value Reference Range Interpretation Comments PHOSPHORUS (BEAKER) (test code = 3.0 mg/dL 2.3-4.7 604) Sales And Operations Trainee ID - PB LCBC W/PLT COUNT & AUTO [id number] 05:29:51 Test Item Value Reference Range Interpretation Comments WHITE BLOOD CELL COUNT (BEAKER) 9.2 K/ L 3.5-10.5 (test code = 775) RED BLOOD CELL COUNT (BEAKER) 3.88 M/ L 4.63-6.08 L (test code = 761) HEMOGLOBIN (BEAKER) (test code = 10.1 GM/DL 13.7-17.5 L 410) HEMATOCRIT (BEAKER) (test code = 32.5 % 40.1-51.0 L 411) MEAN CORPUSCULAR VOLUME (BEAKER) 84 fL 79-92 (test code = 753) MEAN CORPUSCULAR HEMOGLOBIN 26.0 pg 25.7-32.2 (BEAKER) (test code = 751) MEAN CORPUSCULAR HEMOGLOBIN CONC 31.1 GM/DL 32.3-36.5 L (BEAKER) (test code = 752) RED CELL DISTRIBUTION WIDTH 14.0 % 11.6-14.4 (BEAKER) (test code = 412) PLATELET COUNT (BEAKER) (test 521 K/CU MM 150-450 H code = 756) MEAN PLATELET VOLUME (BEAKER) 8.5 fL 9.4-12.4 L (test code = 754) NUCLEATED RED BLOOD CELLS 0 /100 WBC 0-0 (BEAKER) (test code = 413) NEUTROPHILS RELATIVE PERCENT 91 % (BEAKER) (test code = 429) LYMPHOCYTES RELATIVE PERCENT 7 % (BEAKER) (test code = 430) MONOCYTES RELATIVE PERCENT 2 % (BEAKER) (test code = 431) EOSINOPHILS RELATIVE PERCENT 0 % (BEAKER) (test code = 432) BASOPHILS RELATIVE PERCENT 0 % (BEAKER) (test code = 437) NEUTROPHILS ABSOLUTE COUNT 8.32 K/ L 1.78-5.38 H (BEAKER) (test code = 670) LYMPHOCYTES ABSOLUTE COUNT 0.63 K/ L 1.32-3.57 L (BEAKER) (test code = 414) MONOCYTES ABSOLUTE COUNT (BEAKER) 0.18 K/ L 0.30-0.82 L (test code = 415) EOSINOPHILS ABSOLUTE COUNT 0.00 K/ L 0.04-0.54 L (BEAKER) (test code = 416) BASOPHILS ABSOLUTE COUNT (BEAKER) 0.01 K/ L 0.01-0.08 (test code = 417) IMMATURE GRANULOCYTES-RELATIVE 0.40 % 0.00-1.00 PERCENT (BEAKER) (test code = 2801) [id number] 11:42:41 Test Item Value Reference Range Interpretation Comments MAGNESIUM (BEAKER) (test code = 2.0 mg/dL 1.6-2.6 627) Sales And Operations Trainee ID - [id number] 05:38:07 Test Item Value Reference Range Interpretation Comments PHOSPHORUS (BEAKER) (test code = 3.4 mg/dL 2.3-4.7 604) Sales And Operations Trainee ID - ADMINURIC [id number] 05:38:07 Test Item Value Reference Range Interpretation Comments URIC ACID (BEAKER) (test code = 5.5 mg/dL 2.6-7.2 773) Sales And Operations Trainee ID - ADMINHEPATIC FUNCTION [id number] 05:38:07 Test Item Value Reference Range Interpretation Comments TOTAL PROTEIN (BEAKER) (test code = 8.6 gm/dL 6.0-8.3 H 770) ALBUMIN (BEAKER) (test code = 1145) 3.4 g/dL 3.5-5.0 L BILIRUBIN TOTAL (BEAKER) (test code 0.3 mg/dL 0.2-1.2 = 377) BILIRUBIN DIRECT (BEAKER) (test 0.2 mg/dL 0.1-0.5 code = 706) ALKALINE PHOSPHATASE (BEAKER) (test 182 U/L 40-150 H code = 346) AST (SGOT) (BEAKER) (test code = 28 U/L 5-34 353) ALT (SGPT) (BEAKER) (test code = 25 U/L 6-55 347) Sales And Operations Trainee ID - ADMINBASIC METABOLIC [id number] 05:38:06 Test Item Value Reference Range Interpretation Comments SODIUM (BEAKER) 132 meq/L 136-145 L (test code = 381) POTASSIUM 3.9 meq/L 3.5-5.1 (BEAKER) (test code = 379) CHLORIDE (BEAKER) 101 meq/L 98-107 (test code = 382) CO2 (BEAKER) 22 meq/L 22-29 (test code = 355) BLOOD UREA 6 mg/dL 7-21 L NITROGEN (BEAKER) (test code = 354) CREATININE 0.59 mg/dL 0.57-1.25 (BEAKER) (test code = 358) GLUCOSE RANDOM 97 mg/dL 70-105 (BEAKER) (test code = 652) CALCIUM (BEAKER) 9.2 mg/dL 8.4-10.2 (test code = 697) EGFR (BEAKER) 126 Interpretatio n of eGFR (test code = mL/min/1.73 values Stage De scription 1092) sq m Result G1 Francine l or high >=90 G2 Mildly decreased 60-89 G3a Mildl y to moderately 45-5 9 G3b Moderately to s everely 30-44 G4 Severl y decreased 15-29 G5 Kidne y failure <15Reported eGF R is based on the CKD-EPI 2020 equation that d oes not use a race coefficientEsti mated GFR is not as accur ate as Creatinine Em grayson in predicting glom erular filtration rate . Estimated GFR is not appl icable for dialysis patien ts Sales And Operations Trainee ID - ADMINCBC W/PLT COUNT & AUTO [id number] 05:28:25 Test Item Value Reference Range Interpretation Comments WHITE BLOOD CELL COUNT (BEAKER) 9.7 K/ L 3.5-10.5 (test code = 775) RED BLOOD CELL COUNT (BEAKER) 4.04 M/ L 4.63-6.08 L (test code = 761) HEMOGLOBIN (BEAKER) (test code = 10.5 GM/DL 13.7-17.5 L 410) HEMATOCRIT (BEAKER) (test code = 33.5 % 40.1-51.0 L 411) MEAN CORPUSCULAR VOLUME (BEAKER) 83 fL 79-92 (test code = 753) MEAN CORPUSCULAR HEMOGLOBIN 26.0 pg 25.7-32.2 (BEAKER) (test code = 751) MEAN CORPUSCULAR HEMOGLOBIN CONC 31.3 GM/DL 32.3-36.5 L (BEAKER) (test code = 752) RED CELL DISTRIBUTION WIDTH 14.2 % 11.6-14.4 (BEAKER) (test code = 412) PLATELET COUNT (BEAKER) (test 504 K/CU MM 150-450 H code = 756) MEAN PLATELET VOLUME (BEAKER) 8.4 fL 9.4-12.4 L (test code = 754) NUCLEATED RED BLOOD CELLS 0 /100 WBC 0-0 (BEAKER) (test code = 413) NEUTROPHILS RELATIVE PERCENT 71 % (BEAKER) (test code = 429) LYMPHOCYTES RELATIVE PERCENT 18 % (BEAKER) (test code = 430) MONOCYTES RELATIVE PERCENT 9 % (BEAKER) (test code = 431) EOSINOPHILS RELATIVE PERCENT 1 % (BEAKER) (test code = 432) BASOPHILS RELATIVE PERCENT 0 % (BEAKER) (test code = 437) NEUTROPHILS ABSOLUTE COUNT 6.87 K/ L 1.78-5.38 H (BEAKER) (test code = 670) LYMPHOCYTES ABSOLUTE COUNT 1.76 K/ L 1.32-3.57 (BEAKER) (test code = 414) MONOCYTES ABSOLUTE COUNT (BEAKER) 0.86 K/ L 0.30-0.82 H (test code = 415) EOSINOPHILS ABSOLUTE COUNT 0.12 K/ L 0.04-0.54 (BEAKER) (test code = 416) BASOPHILS ABSOLUTE COUNT (BEAKER) 0.01 K/ L 0.01-0.08 (test code = 417) IMMATURE GRANULOCYTES-RELATIVE 0.50 % 0.00-1.00 PERCENT (BEAKER) (test code = 2801) [id number] 05:23:00 Test Item Value Reference Range Interpretation Comments PHOSPHORUS (BEAKER) (test code = 3.7 mg/dL 2.3-4.7 604) Sales And Operations Trainee ID - MARCOURIC [id number] 05:23:00 Test Item Value Reference Range Interpretation Comments URIC ACID (BEAKER) (test code = 6.6 mg/dL 2.6-7.2 773) Sales And Operations Trainee ID - MARCOHEPATIC FUNCTION [id number] 05:23:00 Test Item Value Reference Range Interpretation Comments TOTAL PROTEIN (BEAKER) (test code = 8.5 gm/dL 6.0-8.3 H 770) ALBUMIN (BEAKER) (test code = 1145) 3.3 g/dL 3.5-5.0 L BILIRUBIN TOTAL (BEAKER) (test code 0.3 mg/dL 0.2-1.2 = 377) BILIRUBIN DIRECT (BEAKER) (test 0.2 mg/dL 0.1-0.5 code = 706) ALKALINE PHOSPHATASE (BEAKER) (test 153 U/L 40-150 H code = 346) AST (SGOT) (BEAKER) (test code = 31 U/L 5-34 353) ALT (SGPT) (BEAKER) (test code = 29 U/L 6-55 347) Sales And Operations Trainee ID - MARCOBASIC METABOLIC [id number] 05:22:59 Test Item Value Reference Range Interpretation Comments SODIUM (BEAKER) 133 meq/L 136-145 L (test code = 381) POTASSIUM 3.9 meq/L 3.5-5.1 (BEAKER) (test code = 379) CHLORIDE (BEAKER) 101 meq/L 98-107 (test code = 382) CO2 (BEAKER) 22 meq/L 22-29 (test code = 355) BLOOD UREA 7 mg/dL 7-21 NITROGEN (BEAKER) (test code = 354) CREATININE 0.61 mg/dL 0.57-1.25 (BEAKER) (test code = 358) GLUCOSE RANDOM 95 mg/dL 70-105 (BEAKER) (test code = 652) CALCIUM (BEAKER) 9.2 mg/dL 8.4-10.2 (test code = 697) EGFR (BEAKER) 125 Interpretatio n of eGFR (test code = mL/min/1.73 values Stage De scription 1092) sq m Result G1 Francine l or high >=90 G2 Mildly decreased 60-89 G3a Mildl y to moderately 45-5 9 G3b Moderately to s everely 30-44 G4 Severl y decreased 15-29 G5 Kidney failure <15Reported eGF R is based on the CKD-EPI 2020 equation that d oes not use a race coefficientEsti mated GFR is not as accur ate as Creatinine Em kenan in predicting glom erular filtration rate . Estimated GFR is not appl icable for dialysis patien ts Sales And Operations Trainee ID - MARCOCBC W/PLT COUNT & AUTO [id number] 04:54:47 Test Item Value Reference Range Interpretation Comments WHITE BLOOD CELL COUNT (BEAKER) 8.6 K/ L 3.5-10.5 (test code = 775) RED BLOOD CELL COUNT (BEAKER) 3.92 M/ L 4.63-6.08 L (test code = 761) HEMOGLOBIN (BEAKER) (test code = 10.2 GM/DL 13.7-17.5 L 410) HEMATOCRIT (BEAKER) (test code = 32.5 % 40.1-51.0 L 411) MEAN CORPUSCULAR VOLUME (BEAKER) 83 fL 79-92 (test code = 753) MEAN CORPUSCULAR HEMOGLOBIN 26.0 pg 25.7-32.2 (BEAKER) (test code = 751) MEAN CORPUSCULAR HEMOGLOBIN CONC 31.4 GM/DL 32.3-36.5 L (BEAKER) (test code = 752) RED CELL DISTRIBUTION WIDTH 14.0 % 11.6-14.4 (BEAKER) (test code = 412) PLATELET COUNT (BEAKER) (test 498 K/CU MM 150-450 H code = 756) MEAN PLATELET VOLUME (BEAKER) 8.5 fL 9.4-12.4 L (test code = 754) NUCLEATED RED BLOOD CELLS 0 /100 WBC 0-0 (BEAKER) (test code = 413) NEUTROPHILS RELATIVE PERCENT 71 % (BEAKER) (test code = 429) LYMPHOCYTES RELATIVE PERCENT 18 % (BEAKER) (test code = 430) MONOCYTES RELATIVE PERCENT 9 % (BEAKER) (test code = 431) EOSINOPHILS RELATIVE PERCENT 1 % (BEAKER) (test code = 432) BASOPHILS RELATIVE PERCENT 0 % (BEAKER) (test code = 437) NEUTROPHILS ABSOLUTE COUNT 6.11 K/ L 1.78-5.38 H (BEAKER) (test code = 670) LYMPHOCYTES ABSOLUTE COUNT 1.58 K/ L 1.32-3.57 (BEAKER) (test code = 414) MONOCYTES ABSOLUTE COUNT (BEAKER) 0.80 K/ L 0.30-0.82 (test code = 415) EOSINOPHILS ABSOLUTE COUNT 0.11 K/ L 0.04-0.54 (BEAKER) (test code = 416) BASOPHILS ABSOLUTE COUNT (BEAKER) 0.01 K/ L 0.01-0.08 (test code = 417) IMMATURE GRANULOCYTES-RELATIVE 0.30 % 0.00-1.00 PERCENT (BEAKER) (test code = 2801) Urinalysis w/Microscopic + Reflex to [id number] 00:52:51 Test Item Value Reference Range Interpretation Comments Color, UA (test code Yellow = 5778-6) Clarity, UA (test Cloudy code = 5767-9) Specific [place], UA 1.026 1.001-1.035 (test code = 5811-5) pH, UA (test code = 6.0 5.0-8.0 5803-2) Protein, UA (test 70 mg/dL Negative A code = 46483-5) Glucose, UA (test Negative Negative code = 365) Ketones, UA (test Negative Negative code = 2514-8) Bilirubin, UA (test Negative Negative code = 87701-6) Blood, UA (test code Small Negative A = 19062-0) Nitrite, UA (test Negative Negative code = 5802-4) Leukocytes, UA (test Large Negative A code = 5799-2) Urobilinogen, UA 0.2 0.2-1.0 (test code = 87116-5) RBC, UA (test code = 33 See_Comment [Autom ated 45426-9) message] The system which generated this result transmit brook reference range : /HPF. The reference range was not used to interpret this result as normal/abnormal . WBC, UA (test code = 73 See_Comment [Autom ated 5821-4) message] The system which generated this result transmit brook reference range : /HPF. The reference range was not used to interpret this result as normal/abnormal . Mucus (test code = Rare 8247-9) Squam Epithel, UA 20 See_Comment [Automate d (test code = 30453-6) messag e] The system which generated this result transmit brook reference range : /HPF. The reference range was not used to interpret this result as normal/abnormal . Hyaline Casts, UA 5 See_Comment [Automate d (test code = 03036-7) messag e] The system which generated this result transmit brook reference range : /LPF. The reference range was not used to interpret this result as normal/abnormal . Crystals, Urine (test Few None Seen A code = 87426-9) Yeast (test code = Rare 47745-9) Specimen Source (test code = 2795) SUMEET (test code = SUMEET) Sales And Operations Trainee ID - [auto]Sales And Operations Trainee ID - tech Lab Interpretation Abnormal (test code = 07280-8) [facility] [id number] 00:52:51 Test Item Value Reference Range Interpretation Comments COLOR (BEAKER) (test code = 470) Yellow CLARITY (BEAKER) (test code = 469) Cloudy SPECIFIC GRAVITY UA (BEAKER) (test 1.026 1.001-1.035 code = 468) PH UA (BEAKER) (test code = 467) 6.0 5.0-8.0 PROTEIN UA (BEAKER) (test code = 70 mg/dL Negative A 464) GLUCOSE UA (BEAKER) (test code = Negative Negative 365) KETONES UA (BEAKER) (test code = Negative Negative 371) BILIRUBIN UA (BEAKER) (test code = Negative Negative 462) BLOOD UA (BEAKER) (test code = 461) Small Negative A NITRITE UA (BEAKER) (test code = Negative Negative 465) LEUKOCYTE ESTERASE UA (BEAKER) (test Large Negative A code = 466) UROBILINOGEN UA (BEAKER) (test code 0.2 0.2-1.0 = 463) RBC UA (BEAKER) (test code = 519) 33 /HPF WBC UA (BEAKER) (test code = 520) 73 /HPF MUCUS (BEAKER) (test code = 1574) Rare SQUAMOUS EPITHELIAL (BEAKER) (test 20 /HPF code = 516) HYALINE CASTS (BEAKER) (test code = 5 /LPF 514) CRYSTALS, URINE (BEAKER) (test code Few None Seen A = 1521) YEAST (BEAKER) (test code = 1585) Rare SOURCE(BEAKER) (test code = 2795) Sales And Operations Trainee ID - [auto]Sales And Operations Trainee ID - techTissue [id number] 16:58:06 Test Item Value Reference Range Interpretation Comments Case Report (test code = Surgical Pathology 104) Report Case: [id number] Authorizing Provider: Jamel Pittman MD Collected: 07/09/2022 10:28 AM Ordering Location: [address] Received: 07/10/2022 08:03 AM Service Pathologist: Kerry Cooper MD Specimen: Lung, Right DIAGNOSIS (test code = g0vnfDOoMSIfk3dlEOEld 3220) GFuZzEwMzNcZnRuYmpcdW MxIHtccnRmMVxlcGljOTY qTtwajzCgCRHafKImB5Dr euqdXKpwWR0eQH1dzOtjl FMniERiNCFeKfJdv0zgo0 73mHEfr3ziAENWkrrcdLh 3eMfvM68ay7U8DxjaP53l wVQeDDB8IRDfKWJijOWpB AMjMLC7PWIgmDPsY4veZG FaHH6ihlkkVKmlZLmkIRA egHM5ZRChhAPuT1MeEXZo MGjpADLrsmu7ImSoWk0dy GVyeTcyMFxwYXJkXHBsYW yiTJVlTaWhBU0oTBRKNdt gUklHSFQsIENUIEdVSURF RCBORUVETEUgQklPUFNZO sqeNGArFQ6rVV9UUMBZIX LEUQPlZ8YDJNFZRQpVZUA GSIlqXNUNV1DwVSXZPYOM JIfIVT5IDGxdKA7ZHgwKC pQIUMSLGnRKOk4SHVQpfW YbsHwnrrFnMLvzf6RtIWw jWXUvMW5ycZzjAJCcLR1p SRUjE7tunP9wpel8LtCnT OKxJqB0HKHgyfE6Uai5YS GuIPkze6iui4XmSGWcTCd 4jCryKnWoLDMly2jyafRw ZmNoYXJzZXQwIEFyaWFsO 296j3qdm3qzkeLdwBP4FI LgWXF1NFkphqNasbB5XDv qsZLeGzX4KCprnzSpEGzn jqCcpwSiBxk1LJWqS834A IQ3uZavc2pzNHD2CVViLR TsUfOsKv6grJLiJ310PCZ wSQDPWSYqsRc9YRCvslYb vcHzhQRMu313P870a4wmN RRuahSblKjPfmokw2jsW4 19XHBhcGVydzEyMjQwXHB gsAVxsWD7BWEuPX5bpczy XOuxOYkwDQLygjA9BEUvg GDyB6QrLKMrQB2jancyIN S1GRnoUDXjBZB6SvIxSZP kh0Gkfeo3TpIodt6myw77 FHO0t8FmiJuoSWB2BBB7C yZnSs7qiQBaLKCcEX0rOr VweUDiTHZnzh73wEmsSCs uHZP5JLJeygGmw5Jrw0sq XuGjaiGqQ3zdK5KwXEKrD ZEhQROgDjWuldQhr4Ihl2 FsjKIwkMm9i7aiNXKsWNZ naNgmk8mhBXV3SQUjgTDh A5xhgN5eGRPiRF2isbxwp 3qmMQqgIGxxWDPprVL9js O0JPOrrHMdF0RwrZ7pVQP fBArzRADbvjv2JqJfBl5s dGVyeTcyMFxzYmtwYWdlX HBnbmNvbnRccGduZGVjXH BsYWluXHBsYWluXGYwXGZ zMjRccWxcbGFuZzEwMzNc aGljaFxmMVxkYmNoXGYxX ErpN2vrVhNtQyOzNre1VC OfgVUkWJUcKst2CVKdnAD yQZUSkFcmaK1nXWHviRxn sL5jyMW9FBRdgrHyvKIMf U4rHZDDzT4oNjJ0HPGzHx p6DCL1AuJdyVTtoN2= COMMENT (test code = p6nflLZvQKHcmMP5QkUtJ 3359) MYhh0vpf8FruRWqeKRcBY dihJYhkfCddi84kXO3eJ3 3YM1qWVLrKiR8IHWvlrR2 Utu8KGPsUJTigNFqR515a 4uig3iaxxAceWW1uAfzIS XodyroJgZ2XEcrYRKsnrn qTSu5XVeyDBVozQX0TVXl rUBxB3LuLOAmEY7kprh6Q VM6MLvvVVAjShT8TZGraE CoETYzxBtpOYcon173YZF 9GpGvDNWrjpWekCklaJ9i ZnMyMCBQZXIgRXBpYywgc YC2yJYekBQ3ULWhGDsuT9 6ve5ShXWxatFwmtSj6XSK zA3IvjZNqQUuqBOU5sZ2h KLdohFslOT4vxzkffvKiW LDiATX1g8nnKOToYvCfa4 8do06wxlVrOcTEqSU2n9r bV5vrFChvoMeowCdgVAQ0 nX2tDRtycdKsl56joWvaK MvtXnOpUQ50kTF9WOUgP6 mqdjS2rBWrWNOqaVAbax6 eRV4yGLMmsW8kTL93JS6l Y0Fpq1ekSfVMiF2cseCeG McvtmXhpTMwjoEzr2UsjB o8OJH4bPIeNO0GCEJrFHu dC4NiAYXzcvJhfbBgVMOe vuKio2k1lLWNBpMgVD4iS TZSTf5jUbPMADEiDUmgCX KmAKlkFK12CS2iAH37rW7 lmqSoYU7nJPBzdauoz2Tn z20eNGztYAYxUT5ea7g3c B71dKTfvnNqnAMsrRvytR EsIHdoaWNoIGlzIGZhdm9 bTYNlsE1mUyUmlvRuE4Iz ckFhXR59SLNtkAuvSNToU LYxw4TmdK5zc9v3ZOUyIQ KuqQ18ds1xqz7vyDqyPRJ 9rXYmljNrGQAaUNMoZu21 BDFywCJiig9jbWYdRHMpa ihpKUQbCKOUTbCWhg1mA4 41UYLyydV7qeBdXBKjal7 = CPT Code(s) (test code = d4zycAOvPHPktUK0EvDhD 3357) ABec0idk8IefULpvBMfXG isaJFrylGbxe12jEU7kZ5 9LH0kFLCvAzS2ZQZtyjU3 Wyt4MRBzHEQxvYGxQ867e 3bcy8kfihVpbQN1lApkPL WgtoinWnV3NYxvURUhumx hZMq6ORnlYBLriFX6NTRs lWObD9WbWPUgMH0gnzr2X EV4GUugANIgHmM4IHBxlF QmUEJjrKnwNYkyh493QMN 7AuXrRHDmuvLtgMllaD1x QgGjHOQ8YKDxTYtbCMGtD JjcFFViiAEkFRl6GyNuCH NccGFyfQ== CLINICAL HISTORY (test a2pirVTrNBNgbUQ4PgRtS code = 3356) KKwq3ozu2XyiVGmvOVbAR grkJXssgIzne12sRU8gF4 1QB3sXATcMwI3SSHonsB9 Ejz6PXZsYUZaqLFqG729e 1qxy0zpqlPwjGT5lZhyEZ MgvltxRiV7PKfxSGVhyka gOOb7TBhaLSXtfVU5KYTq aLGcS6EzJREuKP3winp6E FZ7QSneKFQhWjW2DEPkiB PdWPYbdNheVQwex564IEH 3EjIqISQngeDgsUvruK0a XrVzCNJyVoE3Nt0yHG75F THtDG7qMXIsFUvgYL3coe IgLV34dP0jUEnylIjeGGd 4SH6jtFMkDAZ5aD9labVx tCRzAGWzs3Bmx6VhYVPgk yUnpF6yWXQ6ZyZGtCzgRT XBQXUfMXHqgVyzOOAkg6Z pv9z7kJPcqYXhaI7iVLlh S0AoM9lfj50wFACoDLV7a 1bqRJKmTcC0kG5mwyCqs0 9so41lccYzUlqxWUX4 GROSS DESCRIPTION (test h5mbmPQzRAFxeZRBYYEbU code = [id number]) 4yxewRpYQQssHSwD8Oyyw qzJKgwKW5fMA2xrGtjoEO seWJjML9RZWUjJrBmAYWp cGVydzEyMjQwXHBhcGVya OU7KPRgNQ5mkrksZBziTR doONQmnmG6OIAprULrO6V oAGMnGF7doqvmNOX9HVdn mK7tybDKQizbHw6klGZop HtcZjFcZmNoYXJzZXQwXG DrfKfnUWJzYMa4fQ7MAjk nU84rv0F1Wzt0BYQgYZBx V0HkLM6lLPMscQZwA47PM iyuIIG2TYRRGbhdLCRmEE 3Ui0ddTLVbhGUsXJI3VBw vnTPgTKSwUFNmCAh9UGOk NLccmXDkEE7aqNgiUgnbg Dsrn4UtgQUsQQpaCQRmNI OqEUfdSGOgYU2NCkRmUGD dKDH5RHVrACs9ABf2DU9L WyEoCBOaRKe5VBK5ILYvW Eg7GKkgXQ4QAJR6ZYg5Yv O6IsP6HBZ2ODWoEXGfFnJ cXGYgQXJpYWwgXFxmbCBc HH3ebWjkwYGntiTGVbCBq Q4mINVZbEouiK8qrSOsFF 7TIBStkWWNEMX4HA4bUYN NClxsdHJwYXJcbGluMFxy qM6aOZ8WQNk5heQrRZCwL MyfqoBrBAWcJ8WnmuQfDZ tuGCXohp4jiVkjMKjnKdE sLHHnh6x9nDG3zEWwnTD8 xRJcaUieJzMiTK6kgHUiM D6tWExbRSrzeoGqo5MoXY 25qBMilySoxzWmRKF5OuH gVMmzRBEjtK8sFBYcbXrw zOWpCHGyCF68mNEmuWibW ZqzEAojl7hfiEBus71ueV R9dSXkiECoI64fDPEztcZ jF5ywGvPkAeHzZZ4dROQz BDumWQdlidy8vXMvsWHmh ZH8OCSdhX8mqG47mfVkbv VCGV6BBh7vaRRnRX0RKSR rhxGODsGcVNlfKXFmF2Ls gV3lRJ7UVtjiJQDlBQMDL 3LmT80aoOVfWI4CGNDmkg ANClxjZjBcZnMyMiANClx wbGFpblxlcGljTmVzdERv QoPpoHbdqB11ZUGvgFAvM TN7UU9uJWXhtmzcTPQmDR FtPAJ9OFjmyF11zODmVEJ aVRNcxTHkgR3BSNXsPUP1 RPdgpO49qUVeVX7PXNLjU CA0GLCieVPlIPD4LU4sbL 0KfQ== INTRAOPERATIVE u7rnuSBeIVMkdTK5UsJqR CONSULTATION (test code YDqd4qrg4WroYWsbIYlXC = [id number]) hvrMDyjzOonq82mBE4sP2 4DY5lKJNoKgF5ZFTnvhU6 Suq1VQGoIMYytRYhE215r 5wzx9uicjGuxNE8uPovPQ PnwuqsNqM9KXrlOEQqdga hNHv8HRmjQXRopOR9GNMz zIOaA0QpMKArSX0evue4K VK9EFvyYLYoMbW4OSYkuB WdFOBehXlbUWerf845EOW 5WsGjSEXhcdG3JYnzCEVh C5RsP8VqDLuvGSK0PWYhT SBcXHQgMSBcXGZsIFxcbm V1v3gdUDOsiXOdWZD0IYe caWQgNTEwMDIgXFxkYiBP VzOmCmC4XtYfBHy0KtS8D Vn9SMMRBxRpZmLdHqB1IE w5RIRsUEj9ECg9FIgTUlN 5GRP1BPI0LXfaPJUjYUPm ZDl1VKVkUTamjANpYFCpF SDdUChlEVrgJ97zoQoveF 9aIbLvLPDBQaYCzG7dVRA QmDrmgG1anLBmYWHnZmQs OSABSuZaCU35FwpzAAKwK CAgLSBBREVRVUFURVxwYX FsNQTuFDEEK5IMUGmPEJM WK9XfBIFKEQhLUM3DJKPC RMhLIDgqUQa5GLDAUQQlE S1vYm0wLLUjFZUVTBr5QK QhtMMbASX8VH1yiOvjXBQ aN3VxD7AhwhW6ZDXmli7= MICROSCOPIC DESCRIPTION p9mmtQPfLDSlmHG9HkOkU (test code = 3371) HSdi4edd5QcyFHpyIKaFZ okvMRqngCnlu51xAS1zC5 7UE5lWKNyVxP7BXKgaoD9 Ntg8QUAjSYKaaUUxT607q 2opl9ikhiFunCZ5tBwaDZ FtsmcdWyQ9BOygZAXodou hHVj5HTgsSFCotYA7ENEq eWFiQ4WpBZYgTQ1fjdq3H BA5FRdzZQJvGdQ3ZKQigN FbNYEauGixLVrbh982RBS 0KoDeFSOwnqYfcWodvG9t DjFwAAGSNIFjf8LwCYVsP HBhclxwYXJkXHBhcn0= SPECIAL STUDIES (test a9eibTJbAONfrCR2ZuFlP code = 3376) DQyt1gbl9FqsOPbbZEwYV tgeIAbxvSupl72hGN5kJ3 0CB3jZQSsBrV4LSWlqfD1 Btg8XUUtIGSuvVPpV298P HYzXNNxnVmwmdg7eZ66NB AczO3ipYUiCCipyvBvOSf pusApyaXyJcw4ENN9lJzb EPGljtkyYjS5GRcjCYSod gnpLUd2EXdeXXOjaTJ1FR NtiGBtJ6AzGEFhBO3olfk 8ZFB9RHkhHTVrIaQ4WAEr jNOoNJVduEiaOVica250X PB5BdMkLFFnecShbRhkqO 5cZjFcZnMyMlxjZjEgVGh qMUoucKJfyRTrrVL8iU7f TH5yFTLozAPrB1FbILAmo uHdrQVkMGE0fGXbkPTjZL 7nGChcxLSxz7zey0OfG3v gxKtuaBB8HN8oOIHvYFJn CLhcv1HqoZ7vYvvhLNOmk BEuLATdgkFzl7veO9reJJ BrCXE4TX3zpfLgDmJoAE9 beC32f0Hxg31gg26fsI9x dBCqmzMlI95grOJanYOzp 9BkIKGfjpKrdNY4GUWdDX xulvisa2q0fCE9yDEneRW fbJA4xPAbdPOyAYVSyLQw TZNkb127rl7gXZCxjRPld kQzmC4hWVcmeqigyNFaGI 2wZGJyHNOuNYEbJH30guK oII2hlSPth5kprbQsxGOk p3QkiQC2PRYyyOTyudnfR e7cWA05GFLpPVbcaD2wsZ LlkbRkXB2uVM1hZ1G0hHZ rECScvlEmt6voUEmmLD5y YXZhaWxhYmxlIGFyZSBld zLvvLR2EYEgxNAyQXKepQ ArPTqtzUEss1txw1OtO4o znNiloJJ7NISaQ2gkrWVo wPP8UCP2uI6wKBrezkExM ICyj3UpXUDgKIGhBkA3tF 0fTDC2DvJMqImfNKM9UtP 0LTxjNWZkEA2vGHqfMGde A9FuoGIiKUGSFDGrx6hoH 6gsTTIre6WmjA3nrGH7uP YgGLChbOO5GAIhYHK9OVn vcGVkIGFuZCBpdHMgcGVy Uh9kcDSuS1MxV3yzcqDrm VVleOP7uSZcESqussBnCM D0ZMJrsN8dTQ7pQGExyBA oZQ7orFQyZJDeMLSzJCLi HRTgy3TxJBGwde08AGBkK lkytIifYPKbWh8aUg8oQA RsshMoYNJ8EyTGUZ2gnts ikNUonByvog5zSAxkLSHG DUDhQDNcRGH1EXZdvC1xR JQ0tPP6IEG7T0foG4qaVD EjbxMsDU5vJJXmyKNgklC gQTmkGS7ttYToPTJyi6Ac fofiJTJcETM0BOX1SCqyM DVoGWRoKv7aRVLtuX1bT6 PbEZL9fsMqq7OeBkNUaLV jsI93gWCezt87YHHpBDPm Z7YvMZWcEJUxUAcekkKqv TxiRPKcq13pzTGmgySdh6 NydiWfNOKjZ1tlDGKpiRT dtZIml4PpiD8tgTMezxSm TQS1xGPvEVZerH2oAUPjg RptBWEgkM1zX0DnTDmbFx 5cURWgruupCK4rie74UF9 iptSgWD2zadJrIW74seYl IcWdSFh3TCyLJHkPZKo5H SBhcyBxdWFsaWZpZWQgdG 3usJPaKz1xrFYayPhbKWQ zmMLnCZnnxChxZ4lewvjx EPwjpLWcm2DjxM6pzQQ6E ZT5dQ6cJsrlXNF6 [facility] [id number] 16:58:06 Test Item Value Reference Range Interpretation Comments Case Report (test code = Surgical Pathology 104) Report Case: [id number] Authorizing Provider: Jamel Pittman MD Collected: 07/09/2022 10:28 AM Ordering Location: [address] Received: 07/10/2022 08:03 AM Service Pathologist: Kerry Cooper MD Specimen: Lung, Right DIAGNOSIS (test code = s7refOWhABOat6orMTYuc 3220) GFuZzEwMzNcZnRuYmpcdW MxIHtccnRmMVxlcGljOTY yFbyatxOzEHUcvFJrE0Dt xxnyUXezNI1gHA8kgIeez QIosXEqZVPoWiQhp0whn1 49mCObo7plPPHMyzfoaRh 9hKpdC88bp1E2WuluI22b oYPfOPI0IFEsNQVzrEKpF LVuJOI9NSCtpZUxJ9giNJ CkCT7bswvfASrhKDbzQHN vlGG3RFUnaWTpY7YoSMPk QEjnWIYlwyn9SfBoTx2lc GVyeTcyMFxwYXJkXHBsYW zzYUAoLfKwMS1oBCXGXgo gUklHSFQsIENUIEdVSURF RCBORUVETEUgQklPUFNZO fmyWHAvLX1vHR4IYQWJXH MOXFPgN2XKLUNQBWfUIIN VZKnzFIFRC8NrXFLGEWKI TZxDDD0FQOgcQN2SBtwOF jMCVGGYYyCIBi3DNNVvjQ JjmDmpngYdLJftc3TeEEh wJPClWI9waKwbJOFhOI6w GZJyL6ccrY4aelt6MgHxT KZsQqV7RQXpztY2Hkq3DM KuIEhth4kkq1MkSNOuBRr 8mGqoAcGsKXXkg6hgkxGl ZmNoYXJzZXQwIEFyaWFsO 375n4oej0yvnaZwvSC6XT WmEYQ6WQyfguEbnyL9NSt iqHXvToK4HYwoedUuJTjx pbRvurXiXrg3REHcV639B SX4yYngk3rsKEM8AFJbKD VtQeZgRv7ntADkW761ZME pYWBIOEBwoBy2XIKojoAd xxKhoUBIb165I118x1xkC LLeoaLzcNkWoceef1etO4 19XHBhcGVydzEyMjQwXHB usSWalIS4UGPmIU5opclk ZTqrWDujQAKcicB3MEKgs QQjS3AnPRLcXU6fpqfwRN P5RWrjPQVpODK6GhRjOKD np4Yixbp1HyQzhq8vvd66 ARZ9g4PjeKdkKZF8PGJ9B pZrAa9iiQZsZGXnXQ3gKw UfvDVrHPSvjp88eGtuBGs eCZN2CUGruyJkg5Hcr9qy KcYhxxDtD6xtG6NgAWOaT LTbOJZmQrNbuoYbx8Fdb3 PziHVzfZl9e2wiWLObTSO dgFohe0zaYER2GLPjmRXh D3lznU2xPYHhCA5atanga 8yeTLkrYJlqRYGfqFC4lq Y9KJUjwVHdK2WpaH1rWYY yIYbaRAItvjw9OsFuVj4z dGVyeTcyMFxzYmtwYWdlX HBnbmNvbnRccGduZGVjXH BsYWluXHBsYWluXGYwXGZ zMjRccWxcbGFuZzEwMzNc aGljaFxmMVxkYmNoXGYxX IchK0tmHbUpFvQkCxr7DL AmnPNiVBMwGem3UGYrlVL pFQPUtRkuoS9mVROjhSzm qM6pdAB0YRWyyhQtvAUFe D9eVCGThK1kCcY2PCOuUs a4JKR6UfZoyJQwjW7= COMMENT (test code = e7qsgEBqEWMzxRI4DvEnR 3359) ESto8nvy7KjqEZvlGIqPQ oeySVgfsMshj24rGF9qR0 7JA7vOZMlUtD2TOQbkcL8 Cvx6XKJrOJJqwEXgA543o 8hoe2kqmpGotNK7tNarHD LpmianFbS9JQatFJRwqdk nGQo6RUqwFUXetIF9RGPa eUUpH3VlSTXdFR9wykk3F CT6ANplAXRcFrA8JRLhqB WrWNEbhVxoSOtsk242PYK 3KfUvRZSnggHdmLzwoE1w ZnMyMCBQZXIgRXBpYywgc GK4xMDtzKW1RMFiVGhzJ2 2zd1BbVXicdIjrkFi1SIY mY2VyqARkJIfuZCQ8tI8r EOqicQeoQZ7zjjspldRoB ZMxVZX7a0rtMMQlJcDjt2 6qq06btwRxQzGPlXM7o4d kE3fdSKlxdYflvJilKMW4 uR7sQRajjfTwf50znDbzN ZfmLdQlOR48aTE7TELlJ4 gasaG5gNHzQONybEXrie2 wSQ2mXRBotK0aHD41XV9d S9Ecm1dzPvPYrJ1rxjTeQ NwfhnDivMPdwxKcf2IskR c9KDS2nCNjRI8FLWGiBGq cT3IsXRDrxtLyfvIqUMYo tfNad1x1qFYKFzAgTP4fP FPTIp3rZwITCQXnPRwcTS AsGOfwRP78DL2wKX75fQ0 dptTeAF5lGWAxxsppg5Kr a26oCQscDGYhRT3na0o2l Q86qRTjvkFkpBUigSdnlT EsIHdoaWNoIGlzIGZhdm9 kPWQamT8gNgZqnvEfL5Ud bmYzNK20XQPyqPvhZYLkZ EJan2DplM2ad3p0HRCqQE KcpL33ox9btn8gsIivZDX 7kGEhnyEbEURpXXRlXg55 LCIprHQkrd5sdWWvHADsk zouXIVqYOYXInNWed2rG5 23BXXlrjM9zqPbAJSeeh6 = CPT Code(s) (test code = t7jtsFEdHLHtaNB1XhZxS 3357) ULbo0tki5OhlZQpmGOoOQ pqrIHpluCkdi09rWZ5eU4 7TV5tCNFkWrJ7JKLxswT7 Rsr3DFZrPHUieNJpS867n 4pho2dasfTetWB7sJvfCS CgpdkbHnM9ARrqYVDaowl fGKi9IQvtSIVapKT6UKNt wFDeC6ExVXVuDO7oidu6M PK7YJorLYGqEqZ5OZOnmT QoYDAjiDooIHyta140DHE 4InTaTRDqdrNjiHosaI2u LgGbCNF6RFAiRFfhGXEzZ FwbJJPgcYAdBXv1XqLwIM NccGFyfQ== CLINICAL HISTORY (test l8ideLCgOLYhcRB4SnTnU code = 3356) LAlv4qin0TvrPXusGJkNT eqjIVzlzSxve92tRI4oZ0 7CB8mULKdWvO2QUNcgrF7 Ldn3SOWcKXUtnSRdY685x 8tqi0dumkSkaSX9nLnfNO FstkziApJ7AFkyRLRrbot gHOx4GXseUAXqbAP3RBJt sQZfE0UnTDZdJZ2jaix6B NW2XGsaTTRiFuM2ZFBliW UgXUZucEzaADyef503AUS 1NhFeZCCripZwbFgjtY9j KyBlSFNhPtW1Ij1dHM49V HDqOP0pSHUkASuqAW7alw LtFP69vR6xRLsosSotNGc 8UO7cdDPqTFL8rG9igtTc sZEmTPShe9Wpw6NgHOWet kMqbN0cLTZ5BzFObAoyGT TJQWHdNDSqyCnnEBHog9K ao7m3tNJtfFYeiD8pBBup L5RiQ5abo91jQORpOLN8q 2phHCZkMaK3mS6ibxHtt5 8ty34ytvZfLediCXE0 GROSS DESCRIPTION (test k3ejjEFsHTEloKRMREKtT code = [id number]) 6ujocHyDDOjwCJeY1Oiml coGYhyDB9tPM9wbCekmAI axJOzGM1FOLUkCvXmIBUd cGVydzEyMjQwXHBhcGVya OW4LNNzAT1tbpdyWUlvDQ qdGMOpwlA3RKYvpMHpP7W yPCUqZE8jlbliIMY8ECdg pR3krjGJKfujVb0ekYGvj HtcZjFcZmNoYXJzZXQwXG XcdTzkFSCmYDg3mC6BAsv wZ14se5H4Aba4SVVwZKUw K8YjCW9fJUAkeNSbV75SF vesHXI0LRWAInkuYXTbNG 7Mx7tfYILmeBOqQST9FKh exXWcLRBsSDAdFUy7VBYv LZlmaRQlYY0etEfeKzqqw Xief2GjoFGyLOrxMEDuYI VzCSgyRNLzVS2KObBnDHU pIYR3DMHzCYw1NFc6PD4L NfRxJOLsVRq5XGU5NLCaB Dw8OWqxPX1NDNE5RLb6So Y0HtV3VRF3KDPgMOQcNgM cXGYgQXJpYWwgXFxmbCBc NR0zpWfjlZSlkjCJVpOZx R7nRDOAoEiyvA1vxLRwNM 7KMUBlhHHZLEP4XI3nXBN NClxsdHJwYXJcbGluMFxy dY2aDS6UOFs3tjKkTUPcT JgoikAeGWLdN1DigtPyDH bvZOKedx3igSrfBPfbLlE fMWMqj9l0qYX2bGKcsVZ3 aXEgwIduIuPkJQ2fwTSqW J1dGMumUDfizgYkt1LwQI 33bEHpiqBdlwJdEWR6OuU oNBmyDXZtaW7wISLruGhv uHWnBGNnNO46jAGgbDsjK CbyLMvon8xgaHIvg52xjO J3fOOqoFWkX11eOAXwmfD tP3nrPkIpHgShCF5cCJUf ZVbhHKvvnuc2rOWclNOhw QK0CCFdcS7vdD54vtOhib IBKN8MVc5czGIuLQ6MKOA qmlQHAlDlYLqzOFNfH2Rh oT6eLH3OGblmIZEeHFCGE 9PxB62aqGOlMX2IPTRljb ANClxjZjBcZnMyMiANClx wbGFpblxlcGljTmVzdERv GpAmoXbqlZ36NRDvhWOpG CS5PU4cIQIriyctERUaDQ AgMMJ9JNdbaL95sIEqVMC iWXAmtFSxxA3IJPJaGOK2 XLhzyV52qFRnBO0GWDBmT QA5YPKdzZYiHYG7YV7ewP 0KfQ== INTRAOPERATIVE m5nuuXHgUOAkfUJ8AdYmR CONSULTATION (test code DHwk2aya6GvtFNhpALuPX = [id number]) srbORusnEnoy98uPJ1xH0 7QC3aEUIxZvU0FAPppnF2 Xau9ZAMwLQIusUGyT599v 0ieu4xuedHunXC3zRtjCQ AkxicjUdG3PCkaALGytmz vWAa6RSgcJSFtqYY0IZIe aGWkV8GwCRUbHS2jcsc9W OQ9TNqgUKGhCfF3VRJeuO PsHKTzrIewAGfaq094GBM 1DuFuWYUjjyO3ZFdtGOEr T9FrN2IfJPmxABH8YAVdG SBcXHQgMSBcXGZsIFxcbm Z9e9kuAEYlyTDbLQS6HPi caWQgNTEwMDIgXFxkYiBP IbGuUxT2HlTvHXg1GbK9R Or1KDXDAqNuQhPhJnL5KR i4NFCmXEs4BFs0KKdABnW 8HQE4AZD8JQawPYGbLJQw JYy9ESFpCKakhWGvAVNwP BLtBUbnZRtpC53ohTfgwK 5qPePqMEBCZqJBvV5aCGZ KqDjvkD1epFXwOKNqIcJs DATWMmOcAN67GghlZBVnO CAgLSBBREVRVUFURVxwYX JeRAMgVQUHS2RIMXxPJVL UG9IqFYCFSVsNWL2WPWLE VMfXQFpyLKb2YRACMQCfU U9dVx4lFESvHXUSMCm6RQ WrhIEsNLB5GT1jcCnfULW qF7KfW5CtzvS6NPIskn1= MICROSCOPIC DESCRIPTION m9ezzEWqQNTpaUJ2HpEmB (test code = 3371) FAyr9jdg2OxhDEfpECkBJ bgyMDjvaNime92mWM1yQ9 3DV0hXPZuFlM1ZMLwhyU8 Uao3RCTrOGJqjJHjJ416y 0vlv8tgxkTovJV4aBmgIV OnednyIfM6VIdfCKHvqsx iHEp0DTefITUbrFO6KWIq fYEkX2VwZLMbOZ6kymj6X IP1RMoaLRSbZuI6VGRsoA NhIWStmFqlFLbzv047VSZ 4RuKlFLQbnnSgzCngyT0z HhApLOTUIKVei6LhLRWtY HBhclxwYXJkXHBhcn0= SPECIAL STUDIES (test s3rxpDBbUOYphDA2VzMvL code = 3376) YQvd4mxd0GnjLAfpZZuXN qciQPkmzSnsk24wHG8qX1 0LC1eJIFsDgZ7THAopzE0 Wpb5SJCePRCtkTCbV946O SWnWXVuzVxrprb9gB52ZG PltU0kkSOeNQrjwfKjPHx jteYqyzNnUbn4RPQ0kLbw KXJcvsloXbC2UMlgJCGcv eetSLj4XDtqJFOipZH7QK CgzKDgP6XoWJRpUQ1huvd 7OIA8UCmxBNXdQjQ2FXEa iRBaZHYmdZmuOMzhc689U UU2YsJqDNUaytDlsZfxqG 5cZjFcZnMyMlxjZjEgVGh qKWqkzWPnzSNfaSK9mW8l HE5pZPZzxTThX8DiJJFzm eIrnIZiGLD4iIFnpGWdPA 8xAVopwKBpa7brp5PdZ3w srAgnjOL2FQ4eXTYaRGKm AWulk7LwbO6dXcmuXLSef IEoYQJalcArn7cbF5sbPU JfIZE9AW7hphQgEqPwSQ3 ieA52p5Gee87pr36uxI1e tQBlvfZqZ96erNBwfVNfq 9BmUTDcxoBnrXH6ANTeCT njjuzsq7f9eZW2rDYvhEC paKG5jOOxkVRxSVKQiPFg YSLmm554xw8jSVOvbIFjq eBgaE4gVOiypldluZPuDP 3wGXJlVWBfCEUvKU79adL mMJ7zpXZzd2ndolGixKXi f5KhsFA7CLOuiJIexnheJ b3vAL21SZHfDKxziZ2wfU TcaaCqVB0eSE2iQ9S6dQM bVSLyqcLly4tcVClrWV5v YXZhaWxhYmxlIGFyZSBld rVgjFS9THKmrUFyRMRfvO BtQOnzjCWdh2vim5CxQ8b rmGfcwNY6KCDyC6wfeRHo bXJ7KTN2aL7eOVivonGiW ZTok9VoAKRaYXVoOgG2sW 4hQQN7KtBZsTouLBB5FxW 9RGetXFHuDZ7pIUcsBTxj P9GpsQEaMASUNYNzx6biP 9xnRDEgd5YldL2kzJT3dL KgDBMdcSU1TYYjXOC8TZl vcGVkIGFuZCBpdHMgcGVy Ru6wnBUuB9DcS3jjhpUtq WIcdKW2xOZwEGwymzHtIF E0DWJhgJ2vKW5qOFEjlRN fRC6xdIDxVYDcCVXtMTVp YUJyo8NjLPYpge91BTJmH zpqkJseDDJiZp3gKg8jIQ HgqnGoIRN7VmLCYE9swoj iqESvfCkagq6hGZfqJQWN PAXhKIYaYWH6LZVwgJ1xT FX3aZT6FNU2F2yeW5yfAO JoisKlMV4lLZBlfMZvtdB gIIqzNH1pdIWcAEXon8Hk aqlvHOUfBAY5GQC8LMjsB JLjQBDpWi9bDQMvoD9jU5 LuHBL0foEpb8CpImTQpDZ nvW17dJXblo81MWZqGDFs E0ZwVEBrNXCmNBvusvHvj IbzFMApf68itQNbjpPau8 SjeqMxRZYxK9szYZRgyXW pnNCye5UxmD8hdORoywOn NOB7oBSsZXElqU4yXMZjk UlkDVGzjR6pV5WjHLbrQk 0hRYJlsrruBF9idb94HN2 djkKfRL1awhDaYB32hrMv ZzPjNQz9KNjKTWwVHHp5A SBhcyBxdWFsaWZpZWQgdG 1qxSLaMv6opCQhpAzpYAE bsQUmEWujnGkdQ3uqgeil AYcccFDys3GbhA9loAP0O UN0lW7zNvccYHH0 [id number] 16:58:06 Test Item Value Reference Range Interpretation Comments Case Report (test code = Surgical Pathology 104) Report Case: [id number] Authorizing Provider: Jamel Pittman MD Collected: 07/09/2022 10:28 AM Ordering Location: [address] Received: 07/10/2022 08:03 AM Service Pathologist: Kerry Cooper MD Specimen: Lung, Right DIAGNOSIS (test code = s3ojyDVsVYIwf4wxDYPpg 3220) GFuZzEwMzNcZnRuYmpcdW MxIHtccnRmMVxlcGljOTY sDztdioAiDJCcdRRgU3Cq ftfkZMluVH3gMR6grHewa EDyeFRjFWXkXyDbe5npl5 83gIXwl8nmZJTIawsuuYi 3mWdiU38mr5W2JopqA93r wPJiNTC8TWVoYSLrtXHwR DInROZ6VBNrqFQbN3bwIL SnVW9witsuYEnnLKhuFTH uzOJ9ZBXyfBBxM3KtMRHi QMsjAZUowba5RzNjSq8uk GVyeTcyMFxwYXJkXHBsYW ujUNCiMuIjGI6eNWRLYjv gUklHSFQsIENUIEdVSURF RCBORUVETEUgQklPUFNZO jlqHARdLX2aBN5UYWFRSR HQEMToN0MOFXKMHSlTASX IPHwzEPPQY7XsPDNTIHVW ZNbDIV4EQTweQW3JUzlMZ lRFEGVLKuDYWf7XMQEgdW UngAqsroWoQYxjb0VaXAn dDLKtIR3ntWsfRZXeCA0t JNXkD7yurN4ujjp4GfDbS BQpIeT8ZPDrxsJ2Lgn0PK ThIVvey2krw1WfIAPeQEl 3rLjoQzJuRWBhz5slhrSj ZmNoYXJzZXQwIEFyaWFsO 956j3bcq2pfkxPcnAI7QO OcUSI9NJgisiOblkV8QFh jhJPpLvC5EYfnugAlFPuw ayXtdgGkIfp9DQRoD088N SC3fUqim1ubSFT4KFHfOF PgEcIrEj4wjBOkW749SFG rRWQLIIVchWm6PFEziqTu wtUwaIEKo647R378m6hhS JZvavUlaFsQawewq1sjP9 19XHBhcGVydzEyMjQwXHB vuBQfoFK8KNOkAC6yevot OSebFCefQIPnxvA9VCTcc DEsI7MjLAJgWB0pcaqvKW I3PNnkSVXrTEY1DtZzUCO zn9Othba9DdFbsd3tlw63 XKP2e8BczTnjHHU1RMY4V kRiCb1duEUeSXOrJH6zVj JksYIgEKZheb58fLvtOGv nVMO1QUZcppKdl3Ard1ls JaZcryGmR8jrZ5CnRVDuI QTxNVQgYpDcogGop9Fmu0 SvlZWbuSw7l3hoFAVaIJX ejCclv0vgVYC9TGGqwXXo Q8rcwV6eIIOdDI8htxalr 9ctCFycPTfiNPHkaYO5ma Y8PBQanWMxL0GgpC7zRNR sKXvjQWCzbkb1JlFnGe9o dGVyeTcyMFxzYmtwYWdlX HBnbmNvbnRccGduZGVjXH BsYWluXHBsYWluXGYwXGZ zMjRccWxcbGFuZzEwMzNc aGljaFxmMVxkYmNoXGYxX UwqO3ehCvKgXzMvUau1BO OwoPIhKVBzXxt9BRCgkLR yYVHPhWymiN0pKNZqoNdr pE9rzQW4HMJckzCkxNINs K4eOFZNpP4lMyK5CJXaBg v1YQA7QmRhsKFnaK5= COMMENT (test code = l1rxhRZlILMtlQF7NzHiH 3359) WPoi0pcm0WlqGFrjGOsEB wkbTToraLqmr50kXT6oL1 9GQ8pZUWrOdP3ECCwgkN5 Qnq0AHDvKFWvrATxF318q 8qsk6vuieDfrXE1bMcjCZ LjbdmvKlC0DGjlWUDdhcq dQZa4USnaOZKjcGT2NMFe lPOtX9BhCEOmHL0udak2O OY4BYvhUEEiWcP1NKPlsL WeNEAxgPhdDMuex216NXV 6QhQeTEJscmTjeJvitA9r ZnMyMCBQZXIgRXBpYywgc UW5sKHwmWW5QWMoNRufM4 2xe1NaPBsciEdljAo1WEH eG0TmhZOlCVbdYMB0sA2h BQhzjDfjKW2bnousxuWuB UNsNJH7w6tvYUYuOtEjd9 6fn43qsoGkJxDMtHJ8e4u eE8dkZKxtnYqvgHblMYL1 pQ0kXJebduUbs74csFhrQ RtnFjPdRU96eLA1NEUiF6 ifhyU3vCAuGDBasAMhae4 vQA4bNDUxhP9oQS74GH2r X8Doi2ewKaQNyO0ewyXtJ BdxokGniEBmbbFye1KfvO b6NQS7gYPlKU3MJQHnWQq xF6YpGGCwohLjlrOjFQUs fiZhb4v5zBKRDvKvKW3mI OXAYb4wEjRMBPKaPYcmXS QbNGetJI05VE8qSS21zA4 adsTjEV3wJZBfbaimt6Qa n20iQKnaQTHtEX6iq0p9o G03qAHbzvDryACceHrxpZ EsIHdoaWNoIGlzIGZhdm9 nXQDbyH5mUtKvhqVbU2Ls ekLsCK03JDAmlHllZBAlH TXha6ScwF6uk6z5LRJsFM IygL08xx7bre1hvGlaXNG 0uNErppSpELJcHOGtOj62 AYEfxCBnvw7jzVUxTSZfe gdiFQUdXARJHqQLfb5xH9 94JJTbthQ7rlCtACTlsb9 = CPT Code(s) (test code = s6lvhFJfMWFcbPP8MfUnA 3357) MPdt5ugz5LhjYTyhWZcSY htuKTluxFual30rUN6cN9 2SU7zWXWaStT8SXBrphY1 Zdy4SUSeNQMlsBQlN961e 3zjn9bmlqIhoYN4hAwnLY HupuuvFnJ9RBinZLSukes eHQh9RIwwVRCbaUE7WJLi mKMeK6IpYCHzRM3rimi2V WX7SYrmUZSdCxY5ZEAzzP TdQYEfqHctIJvms271XOI 7TvEoEDSpkoFnySvueQ5s MnSvQIC5YPFzLRvnCJNmB ErcVYSdzISpRQb4PlQvHE NccGFyfQ== CLINICAL HISTORY (test l8zbrZXhIFDrcVG1TgXvP code = 3356) TEmc4iuo3PytBDrhODbMW mumMOdwtHext00oSL1kF9 7HB5jCSTbUpZ7FINdopC4 Gde6ZPUsNNKggPFbS030i 7nfo8rgxoRltGB1yNzgFL LhbxmtIvZ7TVplDUFonni lSXu6VVptVWGmmRM6FUMe sJQyI4IuSNHeUD8fdyd3K AW4USseEATeVjS0PWIzrJ CbOCNtwRpeLIgfu721BOR 0YmBfQDXlcuKsnKgncJ3u OkWxOFDhKfT7Ea1tVP04G WRjRX2bMQWcCEhjXX2bkt YxMY94qY0zLDaybSsmOGi 7LA5qxPAaAOK8pY1uytIa tHRfTBMgo8Wyr0CzQWNgl mIysW8oETP6DlOKvHozBA LXZAJiTNGijKkmKJRdj2T mf8n7bYPerDTvhO4fJYpe P6QpX6xac43tHYDoNWJ4t 8ajXYGaElG9xX6kswHbf2 0na16zejFdAfytZSH1 GROSS DESCRIPTION (test g9ygwPSnJCLstEQGIQVbH code = [id number]) 2hkysSmVRRtiGVzA4Pbck uhYRwrBN4bPU0ygHuiiEF pjGUzRJ9GFCQaAjRjEZWc cGVydzEyMjQwXHBhcGVya BN5RXBvII8nwjrcSKbcQG zyCZTfdgC2VYOrbTUqY0G iGTEoCR1qorimQAN9TFas aB4dxeECNtyhZg2ynUXto HtcZjFcZmNoYXJzZXQwXG KqgXkoGLQgOGr5gE0WOtq oV90bj4G6Gcl3LTKmEHRy J6IpII1kRLTkkTQbL34WB nqcSCJ6QHMAJlpaHPIlPA 8Lk4ddYNDehGXtVDJ0MXq rxKLgOERfFMAtGJm9UYJy FRorkIXfUY6nkYdnAssil Cacw0NhxVVqCEtcXEYzKF UoELtlXHJhGE1YClRtNEG bBVZ3YMEhHFf3CSq6JC3U BzLnMBVvXWl8XHH3SQYvS Xz5WZuiKA7FBXE3GKy5Kv R5HwP0XRG5PDClRBUyLmD cXGYgQXJpYWwgXFxmbCBc EP7vlTjhkFCrafTNVfKSf D0pBNZLzZarzS8zlGAdUO 3EAGDfbKCUVGM0AO7vSOP NClxsdHJwYXJcbGluMFxy xW9yTH6THYk9vdDyLGUfY DciqqLtGYCxT8BtmhKiQJ ghVNVsip2evRmnIJooIcV uZSRjn6x7xJP7mEKhiPZ1 xMDqoMsmHnAtPR7sgHPjI I2yQTqaCCdqwrKxe5KdXJ 82pDLpksRqlzUsJJR4AvI cDAmsDHAqhN6zEYNosBlk eKIuVGBtHO87lPEjbGxsU ZlaIZmhi6fhmVVgw34szO E0lDLhwAPvG27kQLRrkgR rJ9nfJrGtYmUiRK6iXGIp CZfyUPjkrng6bAHemPJzg AL8TDBegV8goM14tiLevi LMGD0ACi2yhHQyFU2OIVH zqbCVQlImCNpaUSNtS8Hy eI6mIV0FCvvaDVGmBSJHZ 0YvS30ehQBkIS6OUKFfpt ANClxjZjBcZnMyMiANClx wbGFpblxlcGljTmVzdERv YyPqtVlvvK86OHVysJKiE FM3ER0tQEQpwdbwCDCrON QrTGQ7PXzmzI42iDDqQDR zTEApbPWmwU3CAHYpHZL0 LGmuyZ29iUPuGP5IABQlA MK6NTVwkWFxNAA6JC3joU 0KfQ== INTRAOPERATIVE y1ldwPYxTQOajWQ0RyPlX CONSULTATION (test code DYfg1fsm3PdfCBiyQVuTY = [id number]) nkmQPymmZotm56aJE4qO0 8IH8dESFmTpR9BYUxfsZ1 Pyy5VIOzPJQyoFAaX999c 9htw4wrfjBkfKK9rKxgUY KqldanEqE3WTlbSSJsasr rEAk6LQliGFYmqZO9KTHx uPBjP3JeWQQiXE9mghk8N JK6QMwaPBEjIlF0SGGdvT NkQSJveQxfYCofl660BGY 7UjPnJIAudyQ0HHxtHEZq V7AuO9NuFDaxFKS3QYOcB SBcXHQgMSBcXGZsIFxcbm C7a0ajUSUhhWHaGRF6IUk caWQgNTEwMDIgXFxkYiBP RnVpUgD4JdRsPYm9ItM4W Pt8BROKYlEtCdIyYqP1VB o8BADkHHq9OVk1BDsSWlL 7ROE1ILM8AUxtBCNnDTZp ZZb7PRPrOGzudCKlCHFvP AOcXJplRLruO15nzUnulY 3cOqLrQJSQEkIRlV2oFPJ YlKnoyV0bnSGwNNTdRwQh TKOGAaWoRZ82DysqSHAxH CAgLSBBREVRVUFURVxwYX LtGGRoAVGUO0NEKJeSULO WQ8LcHYKWCWrLPW0DWPTT WCnBAXtxVZb6ECLYELAnL V9oUt5sCDLxZDBYBTe6GN TsdEPiUJW8IK1mxPeoHAT mT0SbD4QmnuG0UCXljh4= MICROSCOPIC DESCRIPTION v9osrOTaXVHikSN2JcXkA (test code = 3371) FFyq0npu9KvfJXveBWnEW ansFLcrpAbdh08wCZ3sY7 5DY3gYEKfRnB0DHUgqtV0 Kpp6UXGgVOTgjXAoT626f 3ndw7lauyXmsYN9jKiiKR DvmsexVjB9WTqpVJQzffi gVSy7EBzeZICngVR2CIWr uZGuR9KqQPQvKU1ytto4B ZP7ZRpcUXWtXzR9DHWjfU LdVZXbpXnaELpwx151JPC 2GsXbMOBdkwVckFccmK8l XjTyZQFNJRUmg2EgCIGyS HBhclxwYXJkXHBhcn0= SPECIAL STUDIES (test x4dzzKOwXYVpzYM3BfBtT code = 3376) QDrg2pte5QsaTHywTHfRG kqaCCqrvFjsu15vXA7vH4 7KI2kDAByKuA6JIVjpcT0 Faf0JXOyJJPemEVwV362F YJpJJHezPwxhyj2lR95CN FslK2daDUxIMfgjtJkZSt idbHsytNyZfq4BLP7zFup OGThwyhuPjB4MHvwBITug gerNVd5ZTynOVGhhJD8YE UvdBBoE2TbJZRcFU9yazc 0RPK4OJraRJAfIvN6IDYi oIJrHHTvyPddEUkbp178F CP6VqNiTOGadrKwdFjfnC 5cZjFcZnMyMlxjZjEgVGh vQZlhtWPncVXwgYG2jL9d VK8pZCFssWAsL0PgLPEep wIfaFNmKEL5yCBbbOSrNO 2qSRdwyYXvy3wtt5AiC0w hmHqzqUK0NJ3zHYUkSTRj DUtpx0XzhZ0nVnnaEGBde QJsZWNezsUqm1pnX4yyNC FuOXZ0NS9ycxTlYhIdAX4 mlN32f4Tuw71qc92udO4h qGJdmlAgE68xlVKvvFHin 0MkOZIvtrVdqOF2ONNxNJ oslggqw3j5nIS2cAEmrXF tsUZ6hDLvgYLjKDCTgJUe FFNzr861ib0pFNZriOSfl rZuxI2wTKenapmheSElQR 8yZEJiFGVkCNMrDT86mpF hBP9feXTkp6nirfUqmBWg v5KlxYN1BFWzyMJydmssT l8eWD07CBVoCUcfyE8nxD BlyvXiMZ9fBJ3pL1M9zNE tSEAeogIfe7azTXmyHQ3s YXZhaWxhYmxlIGFyZSBld qVygQD5HZZubZLkIONbpK XrQQgplTHyd9jjs7IuQ3y mhOtpsBE1KXUfW6vwqRTu sSA8LZD9kA8sYHxvjjEsE BFot4XbWXIzPJDoEcX5jP 4xVIO6IeDRcJsjNWJ5VfR 7WJlhPINgLH5fBPleETgu F5ZpkQZhYPAAPONgl6ycA 1syDMNgm7ViaB9jdIA4aK RjYISpfJR8YJYkTZN4RWa vcGVkIGFuZCBpdHMgcGVy Df2hrBOnW5AwS1dmgtCdo RDhnQL1pHSbLYlqwcEuXC I3HBElrW0kCW8mUQChpKL lRZ9qhHVzJUQhQOAlLGJw YXWpk4GtLXSolp40COWlY vrtqAhcYLVoPz7lLh4lIO YcayDnQQU2LeXAFL1deph seMLasBnofc4cJIprPQJV WVPgICQkGZX8BYZrhA8xH BY9jAB9RDA7D3myV9czQB RzknIeTU0oNFYmmGKoqlN bSVxvJG3tuUKqRNUtk8Hu rejsGQFoJOX9WPJ1SYrzG KCySFQsHh4eIKQvjK4oA7 RuTUK0spUvm4EbVyTAyCG cwF55eKRdhw96JCLxSXQg G1OlYQQiSIDbBQzyowHba BnyKZDic26szBZcwsKgk8 SfezOqPSRhD0vhBJQwdDU pdNYes1ZckF4tjIQiyiZq FBB6uZCiMCRkjU5pDGXiw FyiOVEcoO3oY4HqXQizSo 2xZJOnxatmAC4txa87IZ8 kouWbOY5vjiKfMS38doSr KvQvRQt3AUvTDSeCDOm8M SBhcyBxdWFsaWZpZWQgdG 0mvZWxEh4xhPKhtGaeRVV erJUcWLfbqZosV5fagpob ESwnqTZdz4BgkN6zuAO2R RM6iA3zTxhfDXH6 [id number] 16:58:06 Test Item Value Reference Range Interpretation Comments Case Report (test code = Surgical Pathology 104) Report Case: [id number] Authorizing Provider: Jamel Pittman MD Collected: 07/09/2022 10:28 AM Ordering Location: [address] Received: 07/10/2022 08:03 AM Service Pathologist: Kerry Cooper MD Specimen: Lung, Right DIAGNOSIS (test code = k7mesMGoCVPyr7orBZQmg 3220) GFuZzEwMzNcZnRuYmpcdW MxIHtccnRmMVxlcGljOTY nHuogmhBmXUKnuVTnR5Gu wwoxHScuCD8oAR6zxPufh SDqnVOwUEUpAeYzb7nbe2 54vZHsw1irCYQYofpsrSe 6wUftO62sp5D7TqbhQ63w hAVhFUT6UMYeRVDsrJSpT WPmLKD3CPVfnFCsS7lyNR QvGG7zaqbbNCmmQHtcTYY noSK4SHHciDYmA4FxSRFw JDxdIQMveff5IvGbEw9ga GVyeTcyMFxwYXJkXHBsYW kzKWPyHjVhPW6fMUTBAmu gUklHSFQsIENUIEdVSURF RCBORUVETEUgQklPUFNZO yxfPPGvLR1dRJ9CAUZNLS TWGULkU2OEHFNVPQbASQM BDPbnTPHWP2WhAUGLAVRU MOhGIF4ZWVmoHH3VJbsXG nAJKJIKAcHCKx9TMYXpyV SsgAtewnJdIZuxt3RsTCs pDSQvQK4pmNlrIJBmLX7v FVZtB3lpfB1kwsn3XcLgF UWqVqP9GTRyhgO6Pbl9GD MxHUkzf6rij8EzUXRtPOz 8jBscWuVeWYGnx9jqfzEs ZmNoYXJzZXQwIEFyaWFsO 526l5xdj3jgcuDyiWJ9SA VgWYY2LAzdhoWeesY7AUk hhLUtJgY3XIjgvqJrHAzv fnZttuOgMch4FMNoX358K CZ1aVdgh7csLML5OTKnQU VpVkZgCn3twXMaF225YUZ iNSGJPTXjhEh6HHVkfoMq cwPurCBRd638O389h3voV WFgnkHurYjKzcpmy6hzY1 19XHBhcGVydzEyMjQwXHB xnVVuhNO5JCGrCM7qnbxm IHifQPuaEAIfmwS0LEGad FIqL8VdQPNcVS2nfhpoDA L3JLxeILNgGSB2FkQcCRH ub7Kmbas4VuNjdf0qgr62 WAA5h6VcvLjdWKF8UIR8O vZfIi4msUMmULTzXI3yXm GynKEyWDSctl48cWrlXSy wEHR7ZVTursVvm3Gko1rs IvPeeeZpE9mfK6LuDMXgQ QFwAYKyMbHcqsHiq1Cue0 ImdFDozWf3r6woQVDvZRY skVebi2ruHVF3BFPglNPx R2yoyF0sRFHpWY8xokujw 3kdTBfvCJppZUZghSU4vb S5SQIuwMUwW7CpjE5nDUJ gYZgwCLKxrgi5RcHmMo5m dGVyeTcyMFxzYmtwYWdlX HBnbmNvbnRccGduZGVjXH BsYWluXHBsYWluXGYwXGZ zMjRccWxcbGFuZzEwMzNc aGljaFxmMVxkYmNoXGYxX KxdC5tzCfCvYpOgZub1OP HkoGBxCTZaApy7PSNuiGS cQCWKmIvetJ7nWAQqhMml zV2kkHO0KRRvhbEazGQAc G8hFOUUvP7gRgY9YHZdSe j4WWP7QmTptDUzpY3= COMMENT (test code = c9qnlCPpGONcgIP3GvZwH 3359) GIcn2akg7GhcAYepXWnQX wryTCxyiOmzw63zWO4gG5 1KY8eERNgIlK1PVMshqG8 Qtn9JXMkTMHmrPVoO859y 0eph2regkNgxAM6wKrcXI KrszunZgN7WKndZSQtvru jLZm6FCiqQAVcrZE4UYNq qNIlY0FbTRJwDN5cgdp7H NN1NNlgRPVjEiT7BEMjkR KjGNKnzBqtZUwmc816OWE 8WvTfNIZuqoWrgUwtxW1q ZnMyMCBQZXIgRXBpYywgc EA8xQYftPW0YMZpVRpxV9 8zd0GaARwyiEyllJi3KLK fP6QikRJhVGcjEAK4nV7l VFcnuDzuPA7tvqfpvwWfP OElRCJ3i5raNSPpZgXoj0 1bk26sddTlMxODtCJ0j1v tT3aqGHjktKdonMyrYNC4 oG6hITdlblGcv91mkZqtG PzkMzRjGE27cQE2EPPcG8 wdenR4rNMiBMJmfEWnfw5 zJS0eBJYdpB7mRU52PX3x O0Anr0qxMdWSoY5rlgTjU LiejyUfcBNtddTmv9ZlfR a1HGR2uXSqNU0CQCVbYAe oY7KrJKTeooUdagPzKTIm ftRcx4a7zULAZxIuWS8oQ ZXMBo0zTfOKNBMpORnmKC CgDJsoKS47KC1hNF01iH1 brlJxAC4zDDRzqcfyn1Jf z28zXOltXVRlDW1ta5w2r A95cEDehkJmiOVngQyciV EsIHdoaWNoIGlzIGZhdm9 tOFMsfA2tHjEwjeMyQ8Sg ytIoJP52VVHqpZezEBZzM VNfm7GgeB6oa6a2HKEsXL ZeiP88cw4xcf0dvEdhOPY 6gTSxajIsKELiESFcQd90 FGHleJFiwf6jaNYyHJNmh bluQQScOAAVNqIQkd8kR9 70LEGjtqR5yvOkWOZnty8 = CPT Code(s) (test code = g7odeOAaDNOpvFB1WzFqL 3357) CKya8aje5NfcZMegNPyVR ckuSRsyhSqax40aBQ4pG4 8DT7gTLMiVaE2ZVRbqiO4 Fre6XNOoKXSllDAlF276l 5qoj2yagnHefJU5nEyaNY OdhlbtFvQ1ANcwXGUzqnl uEMe2DTlzOUTiqGF6NZDh rNZjR0FgKTMpEY9dfyh1V CB7HBmfTIUkXnS5RJXnqO DjDTYekCjwYTszj879VNV 1RnDrENLoezDssTzqmW6p YtRoEQL5BXFsUDepYYRaO NqjIIUawNXdRWx0MiTsDO NccGFyfQ== CLINICAL HISTORY (test r8rjsYIbCWCmqWA8HcZkS code = 3356) GRwa9czf8CkiZLftAZwLU gneTWnjcEidy06jNH4dK8 9KN9rPAVkJaD3IGUrbrE6 Wps9XPFkLKOntENtY242l 1whc5immjMsbTD7xVtbSS GmystjOcZ6ILruOWXuykc vJLs1OHwpRJTudAS3RZLq wOOkL2GpEOYgAM6vemo4N XQ0ONxqFTUcEzA2AJSvzZ QtULMufKipPHjft974UQL 4TzCaQKGtxgNdzNpjlE2u HiAnFUNgVzH2Sq7bRO26U GHuQH0sYRSkEZntCY7quh ZyDG51uG6oZEaivMmmYHd 5CX2dyXFzRJX1qV8jpkIp bVXcFQNpq4Cfm4DmDZVma rSflC8jZDF9UsVHqMvuIJ FBQCNmGYFdzFlxNBFgd2T ey0w9iOUloONjjH2mJAbd Z8VaJ9rnz00dRKGyCEO6t 0dkORWuKfD9tJ4zouVjl3 8dc83qglLzTydmDMO3 GROSS DESCRIPTION (test v8sosINaXWWsbUHKTCCwJ code = 6431849436) 2hyqkQuJHDjkVTnL4Smud fqMGxfTQ7fSC1upQflaRG oeIQtNX6IKDIpQfFcDNYw cGVydzEyMjQwXHBhcGVya BJ4YYPjWI7kbxahDQqyTB buCRAuaaN5DAAgzRWtJ8T cIBMyEM0izyinDBW3DIve jJ6zssQZKstwOx6cqQQcb HtcZjFcZmNoYXJzZXQwXG PcjQlvFLJjGNb6aI2UMmj zL45wt7X0Ayo5PPHyTYYg M8UyST7pTYWnlIZnE31UO rxeGKW7NAHCLrhfTVLzZD 4Uq1hqOSMjhHAaNDD6AYy brKUrEVQrFSQmVWi0KHHd XJixeYSkUD0miEbdCafuc Mbpd9RpjPZxVDeeYZWkBY GyQJdpNMLrMX0ZPqCpHLT nEYS4LXCpBPm1TSc3IH4H KiDgAOMhTKv5TGM4HCLpT Wy7LWpiVB0VCNQ3QDh9To F1SpE0DVN8SOBlSWReJaN cXGYgQXJpYWwgXFxmbCBc GF0zpUacsQOdtaGIJvHMz Y4mPZVBmHwsiZ0xaGDsCQ 0KZXVunVDBZXC3JB2kWIN NClxsdHJwYXJcbGluMFxy gO2rVC7TDVf9buAnEUOnG KikznGeKCIpD9UuuuZqAF lvGBSpku5uzHloFQshDtG nOCUto5w4qBS6eJQjyAB2 kDUnnTebKsUnCK0obBFnX M1iOGzsZGdubhCeh5LkCV 50sEXlvxYkacJqJGN0HyP mUXyoWKZxoX5bOPSyrTwo nXXpBIJcHU01dNPslUfjQ QawABkcb9nszAXhm50mfP E4xIBebGLvI38yBABqupM kZ8dvJhPaKtZnBK0nHJEm ZEjpNJhujzx6pOGmhXLmj TO7FNKjpW3tuV81frEijl LJUP0PDh3wnYDjUJ1SEIZ fnjYMRvUpIBuwELOcN1Hl aZ9rWD5EZebnYPUeVGAWF 7KgM89fpXUeOK9IEZDrvc ANClxjZjBcZnMyMiANClx wbGFpblxlcGljTmVzdERv HgZmvMxpiJ31NZBcbTYkH JE2MO5tBCYdwcfvCUZxCT AnXDX4AVkbvT04jPOqGLG qKXJkrFFylU8WBEGbDCH6 JGbfiD89eMBqHI5WQOVzN YK3FHCtwXDhPVU2JF2feI 0KfQ== INTRAOPERATIVE h9kupKKwZVKwmEW9PdCiT CONSULTATION (test code HNhn4lcr1MxkNCxhWTeKT = [id number]) wgeYEubuSltc79zCN0sK2 4JI4sMFFjPyT2NNQfwcL1 Deb1BYSoYAKnmZWhO660x 2puc3hegiSxpIN1zZgkRJ XxwbodJsO6WDhcEXZyzpn aQHi3MZcwXLXwrNZ1GGYv eTGjM3StEFVfQD0ahnl2I PN5XIenVFPxIuH2SURshM AaIQZgyCxcEJzws642ODL 5FlLdSTDawfQ4BMliWXAp H2PvT3DwBLgpJQP7CHCqU SBcXHQgMSBcXGZsIFxcbm I6r0plQMOnuHZtMRO9LJp caWQgNTEwMDIgXFxkYiBP IgZvIcW7WhAqUQo5TkU4N Je5FMQSGmAhVbUjXoW2PQ y9MYLbUWz5FPh8WLjHErT 1CVD9ZBH3SNqyBOZtQPVw DYc4EJQsZPhroEUyWNAnZ MZnHDrdUXflW56tcEgcfT 4jXxGmAPQDXyLZfA0sDZB RiAmeaM9cjQPtCYDgUjSk MIKRTyCkUL35GunrJXLrD CAgLSBBREVRVUFURVxwYX EgWLVkEPMSS5GSDEoNECI RK9OuKURDBXaQQW4CHRVQ MEqTVPjnUWy1NMNMJGFcI F2mZx1zZQMjVPRLDUt4PL NcdAGqSCK2ON6wmBzyNSP mO0YaI1DjxmU5KQJtgm3= MICROSCOPIC DESCRIPTION y5swnOQjGCYwnKT2ZkYyA (test code = 3371) JEmk6lwv3OwyMCnlFWqDG ejhFVwvxPiwe50cOX2pE0 9WA5tAHLnWdE6XZFrwmC0 Yzv0PGTeSLTldLFuC352o 8wgl4xjwfKukPW4zMnoIU OxogydGwO2LFkmEDHjuty wYAo1YZruKOEnpCE8LKFv gHJkQ6TqIZWuHW5oxvi6W CT7RYevANBePeC9YXIuiX BrMABhuCxdGHxqo283PBL 6ZkNyVPWwvuLhhZhjfV8o NbEhABSLNYQup1AtWAZbV HBhclxwYXJkXHBhcn0= SPECIAL STUDIES (test w1zzfLKbGKAfbNX6HrDcH code = 3376) IZxf5pvl1WlhADtmMGtVL alyJSramNnbv86sOW5mH4 6EA8uZVQoWcR5VRRvyuF2 Yex7GRKcQMDmeFAaF864V AWkUBOtaEkjicc1yP92GV UwkP2upGIpPMbyxxXiSTn ztmYugbXcLwf5THM4dKcf BFCwkhiqJvJ7GQpkCAYqf wrrVMu3FDdwFMXhhGH5TK EufLJoL9VpYWXfBJ2fabp 5KSF1ONzhPOIhUyC7HLYe fJSfMIIjeGbmGMxcw926I SW3ZxOxPWHwakEmjOdnmF 5cZjFcZnMyMlxjZjEgVGh pAKyrvIIofKFoeQY5oI1z UB0lEDBqlFYfD3NlZAVgm oPuhESeQNR2gCSviWBpTL 8nWHwrpHIpe6uka5YmH5t yuUattUV6ED5iKILnJUVu GQike0HrbA6wYbypSZYlo ABkXEPqzuWjt0loW7zgIF WvSLM8WW4sgjIiIvIfLD4 hrH82j8Nmn78jd74gvH1y nCHjrgVxW33idMAdjZVro 6TtFVQaucXmwXV6KVLkRM ziuvbjg4q5hSL9oBTcsZX qhTE5dRFmoBXjUBEOgSWw JFSgq466hc3dGFNsxGTvu xKshV8nSAjbjiuzvSKlDI 4tGMCwLAQrABOaIT07xqB lHM3mjTBpj3dunwRiyDJv r1NafHA2HQHgfXUekhpgI k1hMJ73NFFnJEefjS4lqK DtbcZzPE1cCW9qM1R0eUJ kAOIqprMzr0dcASclUN3j YXZhaWxhYmxlIGFyZSBld eXstXC8ZSBcoBEtBHChiU ArGQaqtXApf3dra9QbR8z glSmyzBG7NHOoT3kbwPXs qTV0QLL4wS0wOQtzhlMpQ NLop8CcXBVbCVFiHjR1mO 2jVJW8ScHYiKijASO3SuN 3THmyCGKnMF0rHVnjSXev N6UswGVcMYLHNFGey0vkE 0exZWXeg6VglI9btWA6cP VyWWEliTM1XAJeMFM4JHd vcGVkIGFuZCBpdHMgcGVy Mj3aaPYhN2TkX0akutGtm VQnvFC3oBMuNYvcmxVxZK M8CLGeoY3rNV0bVJXqxBI cMB8gkBMrARPtDXNgSLIx UFNmq7RoBRSvlz88GIArS txowAdyLDLkPn5gUu5qVE KodvPqKDE5VzFKTL2xezq qhHEtmOszkb9wDZlaFCNK CXKdAEEiNZE1AUXnfG5zB JO7nAT6YDB9F1epY5xyZB YnmvQrJV8yQCUxwZXuxjV vCXuaYD7sfINvEALsa3Dd jaoyFTYoUKE5LFZ9NKdrU TSbDEQwNu9lKNAekJ7aU4 IqKWK2txCqx5PhNlRTgML frA39oCAkel24VWHgIFYh M9PdZRHzZWBbPCfqstLev BrsWPHvs84efZSehgMgj5 XqhvKfHPUaC3nuLKIctIN ypPXix1UguN7odHHuzxWu HOD1nMBzDVGxpS2mJQEht EwqNTYvwR5vF3GcYCmtJg 3zRIQdcjbvOE8xkd78JM4 xshZaTF5gbcQyAG75dcYn TdHeHNt7IOwTMCkUGKx0D SBhcyBxdWFsaWZpZWQgdG 7djSQqBg6cqXPjsSofQET fhCBaUZjtjXreO8qjxboe JRmxcIJkd0TucQ8abLP6R UG6iE7jJtamNRQ0 [id number] 16:58:06Surgical Pathology Report Case: [id number] Authorizing Provider: Jamel Pittman MD Collected: 07/09/2022 10:28 AM Ordering Location: [address] Received: 07/10/2022 08:03 AM Service Pathologist: Kerry Cooper MD Specimen: Lung, Right A. 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 Histologically, the tumor has poorly differentiated glandular pattern and abundant necrosis. Tumor cells stain positive with OCT3/4,CD30 and negative with AFP and TTF-1. A small fragment of myxoinflammatory stroma is seen without overt atypia, which is favored to be reactive. Overall, the morphology and immunoprofile supports the above diagnosis.IDC: Dr. Case lyons.[id number] y.o. 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 Lung, Right.PASS# 1- 5: - ADEQUATE - POSITIVE FOR MALIGNANT CELLS (10:45 AM 07/09/2022, [place])Performed.The interpretation of this case included the use of im munohistochemistry or special stains.Control Slides Examined: In-house known positive controls were evaluated along with the test tissue. These control slides run alongside of the patients sample show appropriate staining. Internal positive and negative controls when available are evaluated Immunohistochemistry technical testing was performed at [facility], Pathology Laboratory where it was developed and its performance characteristics were determined. It has not been cleared or approved by the U.S. Food and Drug Administration. The FDA has determined that such clearance or approval is not necessary. The test is used for clinical purposes. It should not be regarded as investigational or for research. This laboratory is certified under the Clinical Laboratory Improvement Amendments of 1988 (CLIA-88) as qualified to perform high complexity clinical laboratory testing.CT, CHEST WITH IV CONTRAST- PE TEST [id number] 07:21:00Unlisted Reason for Exam - Click Yes and Enter Reason Below->No[facility] : 1985 Sex: MFINAL REPORT CT Chest with contrast (PE protocol) History: Pulmonary embolism suspected, high pretest probability Comparison: CT chest performed on 06/28/2022 Technique: serial axial imagingwas performed following up to 100cc of non ionic iodinated intravenous contrast as per departmental protocol. Multiplanar, and maximum intensity projection images are reconstructed and reviewed. This CT examination is performed using one or more of the following dose reduction techniques: Automated exposure control, adjustment of the mA and /or kV according to patient size, and/or use of iterative reconstruction technique. Findings:Mild progression of mediastinal and bilateral hilar lymphadenopathy.Normal size heart. No pericardial effusion. No thoracic aortic aneurysm or dissection. No pulmonaryarterial filling defect. Patent central airways. No pleural effusion or pneumothorax. Extensive bilateral pulmonary metastases have progressed. Interval development of a dependent consolidation within the left lower lobe. No significant findings in the partially imaged abdomen. No aggressive osseous lesion. Impression: 1. No evidence of pulmonary embolus.2. Extensive bilateral pulmonary metastases have progressed from 06/28/2022. Mild progression of mediastinal and bilateral hilar lymphadenopathy.3.Interval development of a dependent consolidation within the left lower lobe. Clinical correlation required to exclude pneumonia. Signed: Matt Patel [facility] Verified Date/Time: 07/11/2022 07:21:37 LACTATE DEHYDROGENASE (LDH) 2022-07-11 06:53:39 Test Item Value Reference Range Interpretation Comments LACTATE DEHYDROGENASE (BEAKER) (test 1140 U/L 125-220 H code = 635) Sales And Operations Trainee ID - YARED [id number] 06:53:38 Test Item Value Reference Range Interpretation Comments PHOSPHORUS (BEAKER) (test code = 3.1 mg/dL 2.3-4.7 604) Sales And Operations Trainee ID - YARED GURIC [id number] 06:53:38 Test Item Value Reference Range Interpretation Comments URIC ACID (BEAKER) (test code = 6.3 mg/dL 2.6-7.2 773) Sales And Operations Trainee ID - YAERD GHEPATIC FUNCTION [id number] 06:53:38 Test Item Value Reference Range Interpretation Comments TOTAL PROTEIN (BEAKER) (test code = 8.0 gm/dL 6.0-8.3 770) ALBUMIN (BEAKER) (test code = 1145) 3.2 g/dL 3.5-5.0 L BILIRUBIN TOTAL (BEAKER) (test code 0.4 mg/dL 0.2-1.2 = 377) BILIRUBIN DIRECT (BEAKER) (test 0.2 mg/dL 0.1-0.5 code = 706) ALKALINE PHOSPHATASE (BEAKER) (test 147 U/L 40-150 code = 346) AST (SGOT) (BEAKER) (test code = 33 U/L 5-34 353) ALT (SGPT) (BEAKER) (test code = 28 U/L 6-55 347) Sales And Operations Trainee ID - YARED GBASIC METABOLIC [id number] 06:53:37 Test Item Value Reference Range Interpretation Comments SODIUM (BEAKER) 131 meq/L 136-145 L (test code = 381) POTASSIUM 3.9 meq/L 3.5-5.1 (BEAKER) (test code = 379) CHLORIDE (BEAKER) 103 meq/L 98-107 (test code = 382) CO2 (BEAKER) 20 meq/L 22-29 L (test code = 355) BLOOD UREA 7 mg/dL 7-21 NITROGEN (BEAKER) (test code = 354) CREATININE 0.61 mg/dL 0.57-1.25 (BEAKER) (test code = 358) GLUCOSE RANDOM 101 mg/dL 70-105 (BEAKER) (test code = 652) CALCIUM (BEAKER) 8.9 mg/dL 8.4-10.2 (test code = 697) EGFR (BEAKER) 125 Interpretatio n of eGFR (test code = mL/min/1.73 values Stage De scription 1092) sq m Result G1 Francine l or high >=90 G2 Mildly decreased 60-89 G3a Mildl y to moderately 45-5 9 G3b Moderately to s everely 30-44 G4 Severl y decreased 15-29 G5 Kidney failure <15Reported eGF R is based on the CKD-EPI 2021 equation that d oes not use a race coefficientEsti mated GFR is not as accur ate as Creatinine Em kenan in predicting glom erular filtration rate . Estimated GFR is not appl icable for dialysis patien ts Sales And Operations Trainee ID - YARED GHEPATITIS B CORE ANTIBODY, [id number] 06:51:15 Test Item Value Reference Range Interpretation Comments HEPATITIS B CORE TOTAL ANTIBODY Nonreactive Nonreactive (BEAKER) (test code = 497) Sales And Operations Trainee ID - BSHEPATITIS C [id number] 06:51:14 Test Item Value Reference Range Interpretation Comments HEPATITIS C ANTIBODY (BEAKER) Nonreactive Nonreactive (test code = 367) Sales And Operations Trainee ID - BSHEPATITIS B SURFACE [id number] 06:51:09 Test Item Value Reference Range Interpretation Comments HEPATITIS B SURFACE ANTIBODY 246.7 mIU/mL <8.0 H (BEAKER) (test code = 647) Sales And Operations Trainee ID - BSHEPATITIS B SURFACE [id number] 06:51:08 Test Item Value Reference Range Interpretation Comments HEPATITIS B SURFACE ANTIGEN (2) Nonreactive Nonreactive (BEAKER) (test code = 2585) Specimen is considered negative for HBsAg.VANCOMYCIN LEVEL, [id number] 06:26:36 Test Item Value Reference Range Interpretation Comments VANCOMYCIN TROUGH (BEAKER) (test 12.8 ug/mL 10.0-20.0 code = 522) Sales And Operations Trainee ID - BSCBC W/PLT COUNT & AUTO [id number] 06:08:41 Test Item Value Reference Range Interpretation Comments WHITE BLOOD CELL COUNT (BEAKER) 9.8 K/ L 3.5-10.5 (test code = 775) RED BLOOD CELL COUNT (BEAKER) 3.82 M/ L 4.63-6.08 L (test code = 761) HEMOGLOBIN (BEAKER) (test code = 9.9 GM/DL 13.7-17.5 L 410) HEMATOCRIT (BEAKER) (test code = 31.8 % 40.1-51.0 L 411) MEAN CORPUSCULAR VOLUME (BEAKER) 83 fL 79-92 (test code = 753) MEAN CORPUSCULAR HEMOGLOBIN 25.9 pg 25.7-32.2 (BEAKER) (test code = 751) MEAN CORPUSCULAR HEMOGLOBIN CONC 31.1 GM/DL 32.3-36.5 L (BEAKER) (test code = 752) RED CELL DISTRIBUTION WIDTH 14.1 % 11.6-14.4 (BEAKER) (test code = 412) PLATELET COUNT (BEAKER) (test 474 K/CU MM 150-450 H code = 756) MEAN PLATELET VOLUME (BEAKER) 8.4 fL 9.4-12.4 L (test code = 754) NUCLEATED RED BLOOD CELLS 0 /100 WBC 0-0 (BEAKER) (test code = 413) NEUTROPHILS RELATIVE PERCENT 79 % (BEAKER) (test code = 429) LYMPHOCYTES RELATIVE PERCENT 12 % (BEAKER) (test code = 430) MONOCYTES RELATIVE PERCENT 8 % (BEAKER) (test code = 431) EOSINOPHILS RELATIVE PERCENT 1 % (BEAKER) (test code = 432) BASOPHILS RELATIVE PERCENT 0 % (BEAKER) (test code = 437) NEUTROPHILS ABSOLUTE COUNT 7.71 K/ L 1.78-5.38 H (BEAKER) (test code = 670) LYMPHOCYTES ABSOLUTE COUNT 1.14 K/ L 1.32-3.57 L (BEAKER) (test code = 414) MONOCYTES ABSOLUTE COUNT (BEAKER) 0.77 K/ L 0.30-0.82 (test code = 415) EOSINOPHILS ABSOLUTE COUNT 0.14 K/ L 0.04-0.54 (BEAKER) (test code = 416) BASOPHILS ABSOLUTE COUNT (BEAKER) 0.02 K/ L 0.01-0.08 (test code = 417) IMMATURE GRANULOCYTES-RELATIVE 0.50 % 0.00-1.00 PERCENT (BEAKER) (test code = 2801) BASIC METABOLIC [id number] 06:19:54 Test Item Value Reference Range Interpretation Comments SODIUM (BEAKER) 132 meq/L 136-145 L (test code = 381) POTASSIUM 4.0 meq/L 3.5-5.1 (BEAKER) (test code = 379) CHLORIDE (BEAKER) 102 meq/L 98-107 (test code = 382) CO2 (BEAKER) 21 meq/L 22-29 L (test code = 355) BLOOD UREA 8 mg/dL 7-21 NITROGEN (BEAKER) (test code = 354) CREATININE 0.61 mg/dL 0.57-1.25 (BEAKER) (test code = 358) GLUCOSE RANDOM 113 mg/dL 70-105 H (SANTIAKER) (test code = 652) CALCIUM (SANTIAKER) 9.3 mg/dL 8.4-10.2 (test code = 697) EGFR (SANTIAKER) 125 Interpretatio n of eGFR (test code = mL/min/1.73 values Stage D escription 1092) sq m Result G1 Francine l or high >=90 G2 Mildly decreased 60-89 G3a Mildl y to moderately 45-5 9 G3b Moderately to s everely 30-44 G4 Severl y decreased 15-29 G5 Kidney failure <15Reported eGF R is based on the CKD-EPI 2020 equation that d oes not use a race coefficientEsti mated GFR is not as accur ate as Creatinine Em kenan in predicting glom erular filtration rate . 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 The patient expressed understanding and informed written consent was obtained. TIME OUT: A pre-procedure time out was performed in order to confirm the appropriate site of the procedure. CONSCIOUS SEDATION: Moderatesedation was administered. One mg of midazolam and 50 mcg of fentanyl IV was used for moderate sedation, monitored under my direction. Total interservice time of sedation was 30 minutes. The patient's vital signs were monitored throughout the procedure and recorded in the patient's medical record by the nurse. LOCAL ANESTHESIA: 10 cc 2% lidocaine TECHNIQUE: This exam was performed according to our departmental dose optimization program which includes automated exposure control, adjustment of the mA and/or kV according to patient's size and/or use of iterative reconstructive technique. The patient'sCT is reviewed, and the lung abnormality is localized. With the patient supine, the area is scanned,without intravenous contrast administration. After the skin over the area is marked, the skin is prepped and draped in the usual sterile manner. After local anesthesia is achieved, a 19 gauge needle isadvanced into the abnormality under CT guidance. Six 20 gauge core needle biopsies were obtained. Postprocedure CT evaluation of the area reveals no evidence of pneumothorax or hemorrhage. Patient disposition: Stable to post-procedure area for recovery IMPRESSION: Successful and uncomplicated CT-guided right upper lobe core biopsy. Severe and extensive pulmonary metastases. Signed: Brianne Pedersen [facility] Verified Date/Time: 07/09/2022 19:29:10 RAD, CHEST, 1 VIEW, NON [id number] 17:27:00Reason for exam:->s/p right lung biopsyShould this be performed at the bedside?->Yes [facility] 1985 Sex: MFINAL REPORT RAD, CHEST, 1 VIEW, NON DEPT INDICATION: s/p right lung biopsy COMPARISON: Prior day's exam FINDINGS: Portable frontal view of the chest. IMPRESSION: Support Lines: Port-A-Cath tip overlies the SVC Lungs and pleura: Bilateral metastases are redemonstrated. No superimposed airspace disease or pneumonia. No significant pneumothorax. Heart and mediastinum: Normal contours. Additional findings: None. Signed: Kaycee Del Real Verified Date/Time: 07/09/2022 17:27:04 RAD, CHEST, 1 VIEW, NON [id number] 16:59:00Reason for exam:->2nd cxr post lung biopsyShould this be performed at the bedside?->[facility] 1985 Sex: MFINAL REPORT RAD, CHEST, 1 VIEW, NON DEPT INDICATION: 2nd cxr post lung biopsy COMPARISON: Prior day's exam FINDINGS: Portable frontal view of the chest. IMPRESSION: Support Lines: Port-A-Cath tip overlies the SVC Lungs and pleura: Bilateral metastases are redemonstrated. No superimposed airspace disease or pneumonia. No significant pneumothorax. Heart and mediastinum: Normal contours. Additional findings: None. Signed: Kaycee Del Real Verified Date/Time: 07/09/2022 16:59:14 SARS-CoV2/RT-PCR (Asymptomatic ONLY) 2022-07-09 13:21:39 Test Item Value Reference Interpretation Comments Range SARS-COV2/RT-PCR Negative Negative The SARS-Co V-2 (test code = target nucleic 63183-6) acids are not detected in thi s specimen. Negat leonardo results do not preclude SARS-C oV-2 infection and should not be u sed as the sole bas is for patient management decisions. Nega tive results must be combined with clinical observations, patient history , and epidemiolog ical information. A false negative result may occu r if a specimen is improperly collected, transported or handled. This S ARS CoV-2 test is a rapid, real-lavern e RT-PCR test intended for th e qualitative detection of nucleic acid fr om SARS-CoV-2 in a nasopharyngeal swab specimen collec brook from individual s suspected of COVID-19 by the ir healthcare provider. SUMEET (test code = This test has been SUMEET) authorized by FDA under an EUA for use by authorized laboratories. This test is only authorized for the duration of the declaration that circumstances exist justifying the authorization of emergency use of in vitro diagnostic tests for detection and/or diagnosis of COVID-19 under Section 564(b)(1) of the Federal Food, Drug and Cosmetic Act, 21 U.S.C. 360bbb-3(b)(1), unless the authorization is terminated or revoked sooner. Fact Sheet for Healthcare Providers: https://www.[employer]/Documents/Xp ert%20Xpress%20SAR S%20CoV-2/Fact%20S heets/3023802%20S ARS-COV-2%20HEALTH CARE%20PROVIDERS%2 0FACT%20SHEET.pdf Fact Sheet for Healthcare Patients: https://www.[employer]/Documents/Xp ert%20Xpress%20SAR S%20CoV-2/Fact%20S heets/302-3801%20S ARS-COV-2%20PATIEN T%20FACT%20SHEET.p df Lab Interpretation Normal (test code = 11252-8) [facility]2022-07-09 13:21:39 Test Item Value Reference Interpretation Comments Range SARS-COV2/RT-PCR Negative Negative The SARS-Co V-2 (test code = target nucleic 33043-4) acids are not detected in thi s specimen. Negat leonardo results do not preclude SARS-C oV-2 infection and should not be u sed as the sole bas is for patient management decisions. Nega tive results must be combined with clinical observations, patient history , and epidemiolog ical information. A false negative result may occu r if a specimen is improperly collected, transported or handled. This S ARS CoV-2 test is a rapid, real-lavern e RT-PCR test intended for th e qualitative detection of nucleic acid fr om SARS-CoV-2 in a nasopharyngeal swab specimen colle brook from individual s suspected of COVID-19 by the ir healthcare provider. SUMEET (test code = This test has been SUMEET) authorized by FDA under an EUA for use by authorized laboratories. This test is only authorized for the duration of the declaration that circumstances exist justifying the authorization of emergency use of in vitro diagnostic tests for detection and/or diagnosis of COVID-19 under Section 564(b)(1) of the Federal Food, Drug and Cosmetic Act, 21 U.S.C. 360bbb-3(b)(1), unless the authorization is terminated or revoked sooner. Fact Sheet for Healthcare Providers: https://www.[employer]/Documents/Xp ert%20Xpress%20SAR S%20CoV-2/Fact%20S heets/302-3802%20S ARS-COV-2%20HEALTH CARE%20PROVIDERS%2 0FACT%20SHEET.pdf Fact Sheet for Healthcare Patients: https://www.[employer]/Documents/Xp ert%20Xpress%20SAR S%20CoV-2/Fact%20S heets/302-3801%20S ARS-COV-2%20PATIEN T%20FACT%20SHEET.p df Lab Interpretation Normal (test code = 92763-1) [facility]2022-07-09 13:21:39 Test Item Value Reference Range Interpretation Comments SARS-COV2/RT-PCR Negative Negative The SARS-Co V-2 target (test code = nucleic acids a re not 2103438) detected in thi s specimen. Negative result s do not preclude SARS-C oV-2 infection and s hould not be used as the anthony e basis for patient managem ent decisions. Nega tive results must be combine d with clinical observ ations, patient history , and epidemiological information. A false negativ e result may occur if a spec imen is improperly joseph ected, transported or handled. This SARS CoV-2 test is a rapid, real-time RT-PC R test intended for th e qualitative detection of nu cleic acid from SARS-CoV-2 in a nasopharyngeal swab specimen collected from individuals suspected of CO VID-19 by their healthcar e provider. This test has been authorized by FDA under an EUA for use by authorized laboratories. This test is only authorized for the duration of the declaration that circumstances exist justifying the authorization of emergency use of in vitro diagnostic tests for detection and/or diagnosis of COVID-19 under Section 564(b)(1) of the Federal Food, Drug and Cosmetic Act, 21 U.S.C. 360bbb-3(b)(1), unless the authorization is terminated or revoked sooner. Fact Sheet for Healthcare Providers: https://www.[employer]/Documents/Xpert%20Xpress%20SARS%20CoV-2/Fact%20Sheets/3023802%80WIVT-JPU-6%20 HEALTHCARE%20PROVIDERS%20FACT%20SHEET.pdf Fact Sheet for Healthcare Patients: https://www.[employer]/Documents/Xpert%20Xp ress%20SARS%20CoV-2/Fact%20Sheets/3023801%72SAIK-HON-9%20PATIENT%20FACT%20SHEET .pdfBASI METABOLIC [id number] 04:41:10 Test Item Value Reference Range Interpretation Comments SODIUM (BEAKER) 130 meq/L 136-145 L (test code = 381) POTASSIUM 3.8 meq/L 3.5-5.1 (BEAKER) (test code = 379) CHLORIDE (BEAKER) 99 meq/L 98-107 (test code = 382) CO2 (BEAKER) 21 meq/L 22-29 L (test code = 355) BLOOD UREA 7 mg/dL 7-21 NITROGEN (BEAKER) (test code = 354) CREATININE 0.60 mg/dL 0.57-1.25 (BEAKER) (test code = 358) GLUCOSE RANDOM 102 mg/dL 70-105 (BEAKER) (test code = 652) CALCIUM (BEAKER) 9.2 mg/dL 8.4-10.2 (test code = 697) EGFR (BEAKER) 126 Interpretatio n of eGFR (test code = mL/min/1.73 values Stage De scription 1092) sq m Result G1 Francine l or high >=90 G2 Mildly decreased 60-89 G3a Mildl y to moderately 45-5 9 G3b Moderately to s everely 30-44 G4 Severl y decreased 15-29 G5 Kidney failure <15Reported eGF R is based on the CKD-EPI 2020 equation that d oes not use a race coefficientEsti mated GFR is not as accur ate as Creatinine Em kenan in predicting glom erular filtration rate . Estimated GFR is not appl icable for dialysis patien ts Sales And Operations Trainee ID - GIOVANNY BCBC (HEMOGRAM ONLY)2022-07-09 04:02:23 Test Item Value Reference Range Interpretation Comments WHITE BLOOD CELL COUNT (BEAKER) 12.0 K/ L 3.5-10.5 H (test code = 775) RED BLOOD CELL COUNT (BEAKER) 4.16 M/ L 4.63-6.08 L (test code = 761) HEMOGLOBIN (BEAKER) (test code = 10.9 GM/DL 13.7-17.5 L 410) HEMATOCRIT (BEAKER) (test code = 34.0 % 40.1-51.0 L 411) MEAN CORPUSCULAR VOLUME (BEAKER) 82 fL 79-92 (test code = 753) MEAN CORPUSCULAR HEMOGLOBIN 26.2 pg 25.7-32.2 (BEAKER) (test code = 751) MEAN CORPUSCULAR HEMOGLOBIN CONC 32.1 GM/DL 32.3-36.5 L (BEAKER) (test code = 752) RED CELL DISTRIBUTION WIDTH 14.2 % 11.6-14.4 (BEAKER) (test code = 412) PLATELET COUNT (BEAKER) (test 540 K/CU MM 150-450 H code = 756) MEAN PLATELET VOLUME (BEAKER) 8.4 fL 9.4-12.4 L (test code = 754) NUCLEATED RED BLOOD CELLS 0 /100 WBC 0-0 (BEAKER) (test code = 413) Urinalysis w/Microscopic + Reflex to [id number] 15:11:47 Test Item Value Reference Range Interpretation Comments Color, UA (test code Yellow = 5778-6) Clarity, UA (test Clear code = 5767-9) Specific [place], UA 1.018 1.001-1.035 (test code = 5811-5) pH, UA (test code = 8.0 5.0-8.0 5803-2) Protein, UA (test 100 mg/dL Negative A code = 37143-5) Glucose, UA (test Negative Negative code = 365) Ketones, UA (test Negative Negative code = 2514-8) Bilirubin, UA (test Negative Negative code = 81805-2) Blood, UA (test code Moderate Negative A = 74442-0) Nitrite, UA (test Negative Negative code = 5802-4) Leukocytes, UA (test Negative Negative code = 5799-2) Urobilinogen, UA 0.2 0.2-1.0 (test code = 75832-7) RBC, UA (test code = 10 See_Comment [Autom ated 49244-8) message] The system which generated this result transmit brook reference range : /HPF. The reference range was not used to interpret this result as normal/abnormal . WBC, UA (test code = 5 See_Comment [Autom ated 5821-4) message] The system which generated this result transmit brook reference range : /HPF. The reference range was not used to interpret this result as normal/abnormal . Squam Epithel, UA 5 See_Comment [Automate d (test code = 04476-4) messag e] The system which generated this result transmit brook reference range : /HPF. The reference range was not used to interpret this result as normal/abnormal . Specimen Source (test code = 2795) SUMEET (test code = SUMEET) Sales And Operations Trainee ID - [auto] Lab Interpretation Abnormal (test code = 64609-1) [facility] [id number] 15:11:47 Test Item Value Reference Range Interpretation Comments COLOR (BEAKER) (test code = 470) Yellow CLARITY (BEAKER) (test code = 469) Clear SPECIFIC GRAVITY UA (BEAKER) (test 1.018 1.001-1.035 code = 468) PH UA (BEAKER) (test code = 467) 8.0 5.0-8.0 PROTEIN UA (BEAKER) (test code = 100 mg/dL Negative A 464) GLUCOSE UA (BEAKER) (test code = Negative Negative 365) KETONES UA (BEAKER) (test code = Negative Negative 371) BILIRUBIN UA (BEAKER) (test code = Negative Negative 462) BLOOD UA (BEAKER) (test code = 461) Moderate Negative A NITRITE UA (BEAKER) (test code = Negative Negative 465) LEUKOCYTE ESTERASE UA (BEAKER) Negative Negative (test code = 466) UROBILINOGEN UA (BEAKER) (test code 0.2 0.2-1.0 = 463) RBC UA (BEAKER) (test code = 519) 10 /HPF WBC UA (BEAKER) (test code = 520) 5 /HPF SQUAMOUS EPITHELIAL (BEAKER) (test 5 /HPF code = 516) SOURCE(BEAKER) (test code = 2795) Sales And Operations Trainee ID - [auto]BASIC METABOLIC [id number] 02:53:38 Test Item Value Reference Range Interpretation Comments SODIUM (BEAKER) 135 meq/L 136-145 L (test code = 381) POTASSIUM 3.7 meq/L 3.5-5.1 (BEAKER) (test code = 379) CHLORIDE (BEAKER) 103 meq/L 98-107 (test code = 382) CO2 (BEAKER) 23 meq/L 22-29 (test code = 355) BLOOD UREA 10 mg/dL 7-21 NITROGEN (BEAKER) (test code = 354) CREATININE 0.64 mg/dL 0.57-1.25 (BEAKER) (test code = 358) GLUCOSE RANDOM 97 mg/dL 70-105 (BEAKER) (test code = 652) CALCIUM (BEAKER) 8.8 mg/dL 8.4-10.2 (test code = 697) EGFR (BEAKER) 124 Interpretatio n of eGFR (test code = mL/min/1.73 values Stage De scription 1092) sq m Result G1 Francine l or high >=90 G2 Mildly decreased 60-89 G3a Mildl y to moderately 45- 59 G3b Moderately to s everely 30-44 G4 Severl y decreased 15-29 G5 Kidney failure <15Reported eGF R is based on the CKD-EPI 2021 equation that d oes not use a race coefficientEsti mated GFR is not as accur ate as Creatinine Em grayson in predicting glom erular filtration rate . Estimated GFR is not appl icable for dialysis patien ts Sales And Operations Trainee ID - PIAYA LCBC (HEMOGRAM ONLY)2022-07-08 02:35:29 Test Item Value Reference Range Interpretation Comments WHITE BLOOD CELL COUNT (BEAKER) 12.5 K/ L 3.5-10.5 H (test code = 775) RED BLOOD CELL COUNT (BEAKER) 3.84 M/ L 4.63-6.08 L (test code = 761) HEMOGLOBIN (BEAKER) (test code = 10.1 GM/DL 13.7-17.5 L 410) HEMATOCRIT (BEAKER) (test code = 32.0 % 40.1-51.0 L 411) MEAN CORPUSCULAR VOLUME (BEAKER) 83 fL 79-92 (test code = 753) MEAN CORPUSCULAR HEMOGLOBIN 26.3 pg 25.7-32.2 (BEAKER) (test code = 751) MEAN CORPUSCULAR HEMOGLOBIN CONC 31.6 GM/DL 32.3-36.5 L (BEAKER) (test code = 752) RED CELL DISTRIBUTION WIDTH 13.9 % 11.6-14.4 (BEAKER) (test code = 412) PLATELET COUNT (BEAKER) (test 521 K/CU MM 150-450 H code = 756) MEAN PLATELET VOLUME (BEAKER) 8.2 fL 9.4-12.4 L (test code = 754) NUCLEATED RED BLOOD CELLS 0 /100 WBC 0-0 (BEAKER) (test code = 413) [id number] 02:33:56 Test Item Value Reference Range Interpretation Comments PROTIME (BEAKER) (test 16.1 seconds 11.9-14.2 H code = 759) INR (BEAKER) (test 1.37 See_Comment [Automat ed code = 370) message] The sy stem which generated this result transmitted reference range : <=5.90. The reference range was not used to interpret this result as normal/abnormal . PARTIAL THROMBOPLASTIN 35.4 seconds 22.5-36.0 TIME (BEAKER) (test code = 760) RECOMMENDED COUMADIN/WARFARIN INR THERAPY RANGESSTANDARD DOSE: 2.0 - 3.0 Includes: PROPHYLAXIS for venous thrombosis, systemic embolization; TREATMENT for venous thrombosis and/or pulmonary embolus.HIGH RISK: Target INR is 2.5-3.5 for patients with mechanical heart valves.BASIC METABOLIC [id number] 06:31:06 Test Item Value Reference Range Interpretation Comments SODIUM (BEAKER) 137 meq/L 136-145 (test code = 381) POTASSIUM 3.6 meq/L 3.5-5.1 (BEAKER) (test code = 379) CHLORIDE (BEAKER) 104 meq/L 98-107 (test code = 382) CO2 (BEAKER) 22 meq/L 22-29 (test code = 355) BLOOD UREA 8 mg/dL 7-21 NITROGEN (BEAKER) (test code = 354) CREATININE 0.66 mg/dL 0.57-1.25 (BEAKER) (test code = 358) GLUCOSE RANDOM 116 mg/dL 70-105 H (BEAKER) (test code = 652) CALCIUM (BEAKER) 9.2 mg/dL 8.4-10.2 (test code = 697) EGFR (BEAKER) 123 Interpretatio n of eGFR (test code = mL/min/1.73 values Stage De scription 1092) sq m Result G1 Francine l or high >=90 G2 Mildly decreased 60-89 G3a Mildl y to moderately 45-5 9 G3b Moderately to s everely 30-44 G4 Severl y decreased 15-29 G5 Kidney failure <15Reported eGF R is based on the CKD-EPI 2020 equation that d oes not use a race coefficientEsti mated GFR is not as accur ate as Creatinine Em grayson in predicting glom erular filtration rate . Estimated GFR is not appl icable for dialysis patien ts Sales And Operations Trainee ID - [id number] (HEMOGRAM ONLY)2022-07-07 06:21:12 Test Item Value Reference Range Interpretation Comments WHITE BLOOD CELL COUNT (BEAKER) 12.8 K/ L 3.5-10.5 H (test code = 775) RED BLOOD CELL COUNT (BEAKER) 3.87 M/ L 4.63-6.08 L (test code = 761) HEMOGLOBIN (BEAKER) (test code = 10.3 GM/DL 13.7-17.5 L 410) HEMATOCRIT (BEAKER) (test code = 32.3 % 40.1-51.0 L 411) MEAN CORPUSCULAR VOLUME (BEAKER) 84 fL 79-92 (test code = 753) MEAN CORPUSCULAR HEMOGLOBIN 26.6 pg 25.7-32.2 (BEAKER) (test code = 751) MEAN CORPUSCULAR HEMOGLOBIN CONC 31.9 GM/DL 32.3-36.5 L (BEAKER) (test code = 752) RED CELL DISTRIBUTION WIDTH 14.1 % 11.6-14.4 (BEAKER) (test code = 412) PLATELET COUNT (BEAKER) (test 539 K/CU MM 150-450 H code = 756) MEAN PLATELET VOLUME (BEAKER) 8.4 fL 9.4-12.4 L (test code = 754) NUCLEATED RED BLOOD CELLS 0 /100 WBC 0-0 (BEAKER) (test code = 413) [id number] 06:20:27 Test Item Value Reference Range Interpretation Comments PROTIME (BEAKER) (test 15.1 seconds 11.9-14.2 H code = 759) INR (BEAKER) (test 1.21 See_Comment [Automat ed code = 370) message] The sy stem which generated this result transmitted reference range : <=5.90. The reference range was not used to interpret this result as normal/abnormal . PARTIAL THROMBOPLASTIN 37.2 seconds 22.5-36.0 H TIME (BEAKER) (test code = 760) RECOMMENDED COUMADIN/WARFARIN INR THERAPY RANGESSTANDARD DOSE: 2.0 - 3.0 Includes: PROPHYLAXIS for venous thrombosis, systemic embolization; TREATMENT for venous thrombosis and/or pulmonary embolus.HIGH RISK: Target INR is 2.5-3.5 for patients with mechanical heart valves.MR, BRAIN, [id number] 16:00:00With anesthesia Unlisted Reason for Exam - Click Yes and Enter Reason Below->No [facility] 1985 Sex: MFINAL REPORT MR, BRAIN, WITH \\T\\ WITHOUT CONTRAST INDICATION: Urologic cancer, staging Technique: MRI of the brain utilizing axial T1, T2, FLAIR, GRE, DWI, sagittal T1; and postgadolinium axial, sagittal, and coronal T1-weighted images. COMPARISON: None FINDINGS:Punctate focus of hyperdensity within the right temporal lobe (axial postcontrast image #12) cannot be confirmed on additional. And is favored to be artifactual. No restricted diffusion to suggest recent ischemic insult. No abnormal susceptibility. Scattered T2/FLAIR hyperintense foci within the periventricular and subcortical white matter are nonspecific, however, statistically represent chronic microvascular ischemic changes. No hydrocephalus. Orbits are within normal limits. No obstructive paranasal sinus disease. Additionalfindings: None. IMPRESSION: No enhancing intraparenchymal metastases. Signed: Kaycee Del Real Verified Date/Time: 07/06/2022 16:00:17 POC-Glucose [id number] 09:27:22 Test Item Value Reference Range Interpretation Comments POC-Glucose Meter (test 116 mg/dL 70-110 H : TE STED AT [facility] code = 1538) [address] [place] [address], [facility] 30: Sales And Operations Trainee/Techni kain ID = [id number] for MAMENTA, JANET Lab Interpretation (test Abnormal code = 05272-0) [facility] [id number] 09:27:22 Test Item Value Reference Range Interpretation Comments POC-Glucose Meter (test 116 mg/dL 70-110 H : TE STED AT [facility] code = 1538) [address] [place] [address], [address] 30: Sales And Operations Trainee/Techni kain ID = [id number] for MAMENTA, JANET Lab Interpretation (test Abnormal code = 48255-2) [facility]-GLUCOSE [id number] 09:27:22 Test Item Value Reference Range Interpretation Comments POC-GLUCOSE METER 116 mg/dL 70-110 H : TESTED A T [facility] 6720 (BEAKER) (test code = [place], 1538) [address]: Sales And Operations Trainee/Techni kain ID = [id number] for JANET ROSE BASIC METABOLIC [id number] 05:51:57 Test Item Value Reference Range Interpretation Comments SODIUM (BEAKER) 136 meq/L 136-145 (test code = 381) POTASSIUM 3.5 meq/L 3.5-5.1 (BEAKER) (test code = 379) CHLORIDE (BEAKER) 103 meq/L 98-107 (test code = 382) CO2 (BEAKER) 23 meq/L 22-29 (test code = 355) BLOOD UREA 9 mg/dL 7-21 NITROGEN (BEAKER) (test code = 354) CREATININE 0.60 mg/dL 0.57-1.25 (BEAKER) (test code = 358) GLUCOSE RANDOM 111 mg/dL 70-105 H (BEAKER) (test code = 652) CALCIUM (BEAKER) 9.1 mg/dL 8.4-10.2 (test code = 697) EGFR (BEAKER) 126 Interpretatio n of eGFR (test code = mL/min/1.73 values Stage De scription 1092) sq m Result G1 Francine l or high >=90 G2 Mildly decreased 60-89 G3a Mildl y to moderately 45-5 9 G3b Moderately to s everely 30-44 G4 Severl y decreased 15-29 G5 Kidney failure <15Reported eGF R is based on the CKD-EPI 2021 equation that d oes not use a race coefficientEsti mated GFR is not as accur ate as Creatinine Em kenan in predicting glom erular filtration rate . Estimated GFR is not appl icable for dialysis patien ts Sales And Operations Trainee ID - MARCOPT/[id number] 05:27:33 Test Item Value Reference Range Interpretation Comments PROTIME (BEAKER) (test 15.7 seconds 11.9-14.2 H code = 759) INR (BEAKER) (test 1.33 See_Comment [Automat ed code = 370) message] The sy stem which generated this result transmitted reference range : <=5.90. The reference range was not used to interpret this result as normal/abnormal . PARTIAL THROMBOPLASTIN 36.1 seconds 22.5-36.0 H TIME (BEAKER) (test code = 760) RECOMMENDED COUMADIN/WARFARIN INR THERAPY RANGESSTANDARD DOSE: 2.0 - 3.0 Includes: PROPHYLAXIS for venous thrombosis, systemic embolization; TREATMENT for venous thrombosis and/or pulmonary embolus.HIGH RISK: Target INR is 2.5-3.5 for patients with mechanical heart valves.CBC (HEMOGRAM ONLY)2022-07-06 05:12:14 Test Item Value Reference Range Interpretation Comments WHITE BLOOD CELL COUNT (BEAKER) 13.4 K/ L 3.5-10.5 H (test code = 775) RED BLOOD CELL COUNT (BEAKER) 4.12 M/ L 4.63-6.08 L (test code = 761) HEMOGLOBIN (BEAKER) (test code = 10.7 GM/DL 13.7-17.5 L 410) HEMATOCRIT (BEAKER) (test code = 33.8 % 40.1-51.0 L 411) MEAN CORPUSCULAR VOLUME (BEAKER) 82 fL 79-92 (test code = 753) MEAN CORPUSCULAR HEMOGLOBIN 26.0 pg 25.7-32.2 (BEAKER) (test code = 751) MEAN CORPUSCULAR HEMOGLOBIN CONC 31.7 GM/DL 32.3-36.5 L (BEAKER) (test code = 752) RED CELL DISTRIBUTION WIDTH 14.1 % 11.6-14.4 (BEAKER) (test code = 412) PLATELET COUNT (BEAKER) (test 532 K/CU MM 150-450 H code = 756) MEAN PLATELET VOLUME (BEAKER) 8.1 fL 9.4-12.4 L (test code = 754) NUCLEATED RED BLOOD CELLS 0 /100 WBC 0-0 (BEAKER) (test code = 413) SARS-COV2/RT-PCR ([facility])2022-07-05 14:20:23 Test Item Value Reference Range Interpretation Comments SARS-COV2/RT-PCR Negative Negative The SARS-Co V-2 target (test code = nucleic acids a re not 2693808) detected in thi s specimen. Negative result s do not preclude SARS-C oV-2 infection and s hould not be used as the anthony e basis for patient managem ent decisions. Nega tive results must be combine d with clinical observ ations, patient history , and epidemiological information. A false negativ e result may occur if a spec imen is improperly joseph ected, transported or handled. This SARS CoV-2 test is a rapid, real-time RT-PC R test intended for th e qualitative detection of nu cleic acid from SARS-CoV-2 in a nasopharyngeal swab specimen collected from individuals suspected of CO VID-19 by their healthcar e provider. This test has been authorized by FDA under an EUA for use by authorized laboratories. This test is only authorized for the duration of the declaration that circumstances exist justifying the authorization of emergency use of in vitro diagnostic tests for detection and/or diagnosis of COVID-19 under Section 564(b)(1) of the Federal Food, Drug and Cosmetic Act, 21 U.S.C. 360bbb-3(b)(1), unless the authorization is terminated or revoked sooner. Fact Sheet for Healthcare Providers: https://www.[employer]/Documents/Xpert%20Xpress%20SARS%20CoV-2/Fact%20Sheets/3023802%04VMCZ-UVD-6%20 HEALTHCARE%20PROVIDERS%20FACT%20SHEET.pdf Fact Sheet for Healthcare Patients: https://www.[employer]/Documents/Xpert%20Xp ress%20SARS%20CoV-2/Fact%20Sheets/3023801%41MPCR-VMI-5%20PATIENT%20FACT%20SHEET .pdfBASI METABOLIC [id number] 04:42:20 Test Item Value Reference Range Interpretation Comments SODIUM (BEAKER) 136 meq/L 136-145 (test code = 381) POTASSIUM 3.6 meq/L 3.5-5.1 (BEAKER) (test code = 379) CHLORIDE (BEAKER) 102 meq/L 98-107 (test code = 382) CO2 (BEAKER) 21 meq/L 22-29 L (test code = 355) BLOOD UREA 11 mg/dL 7-21 NITROGEN (BEAKER) (test code = 354) CREATININE 0.67 mg/dL 0.57-1.25 (BEAKER) (test code = 358) GLUCOSE RANDOM 98 mg/dL 70-105 (BEAKER) (test code = 652) CALCIUM (BEAKER) 9.3 mg/dL 8.4-10.2 (test code = 697) EGFR (BEAKER) 123 Interpretatio n of eGFR (test code = mL/min/1.73 values Stage De scription 1092) sq m Result G1 Francine l or high >=90 G2 Mildly decreased 60-89 G3a Mildl y to moderately 45-5 9 G3b Moderately to s everely 30-44 G4 Severl y decreased 15-29 G5 Kidney failure <15Reported eGF R is based on the CKD-EPI 2020 equation that d oes not use a race coefficientEsti mated GFR is not as accur ate as Creatinine Em kenan in predicting glom erular filtration rate . Estimated GFR is not appl icable for dialysis patien ts Sales And Operations Trainee ID - YARED GB-TYPE NATRIURETIC FACTOR (BNP)2022-07-05 04:36:02 Test Item Value Reference Range Interpretation Comments B-TYPE NATRIURETIC PEPTIDE (BEAKER) 12 pg/mL 0-100 (test code = 700) Sales And Operations Trainee ID - BSCBC (HEMOGRAM ONLY)2022-07-05 04:35:15 Test Item Value Reference Range Interpretation Comments WHITE BLOOD CELL COUNT (BEAKER) 13.0 K/ L 3.5-10.5 H (test code = 775) RED BLOOD CELL COUNT (BEAKER) 4.21 M/ L 4.63-6.08 L (test code = 761) HEMOGLOBIN (BEAKER) (test code = 11.1 GM/DL 13.7-17.5 L 410) HEMATOCRIT (BEAKER) (test code = 34.5 % 40.1-51.0 L 411) MEAN CORPUSCULAR VOLUME (BEAKER) 82 fL 79-92 (test code = 753) MEAN CORPUSCULAR HEMOGLOBIN 26.4 pg 25.7-32.2 (BEAKER) (test code = 751) MEAN CORPUSCULAR HEMOGLOBIN CONC 32.2 GM/DL 32.3-36.5 L (BEAKER) (test code = 752) RED CELL DISTRIBUTION WIDTH 14.1 % 11.6-14.4 (BEAKER) (test code = 412) PLATELET COUNT (BEAKER) (test 604 K/CU MM 150-450 H code = 756) MEAN PLATELET VOLUME (BEAKER) 8.4 fL 9.4-12.4 L (test code = 754) NUCLEATED RED BLOOD CELLS 0 /100 WBC 0-0 (BEAKER) (test code = 413) [id number] 04:28:54 Test Item Value Reference Range Interpretation Comments PROTIME (BEAKER) (test 15.0 seconds 11.9-14.2 H code = 759) INR (BEAKER) (test 1.20 See_Comment [Automat ed code = 370) message] The sy stem which generated this result transmitted reference range : <=5.90. The reference range was not used to interpret this result as normal/abnormal . PARTIAL THROMBOPLASTIN 33.9 seconds 22.5-36.0 TIME (BEAKER) (test code = 760) RECOMMENDED COUMADIN/WARFARIN INR THERAPY RANGESSTANDARD DOSE: 2.0 - 3.0 Includes: PROPHYLAXIS for venous thrombosis, systemic embolization; TREATMENT for venous thrombosis and/or pulmonary embolus.HIGH RISK: Target INR is 2.5-3.5 for patients with mechanical heart valves.RAD, CHEST, 1 VIEW, NON [id number] 18:33:00Reason for exam:->desaturationShould this be performed at the bedside?->[facility] : 1985 Sex: MFINAL REPORT EXAMINATION: RAD, CHEST, 1 VIEW, NON DEPT INDICATION: Desaturation COMPARISON: CXR 07/02/2022 FINDINGS: LINES/TUBES:Right chest port unchanged. LUNGS:The lungs are moderately inflated. Innumerable bilateral pulmonary metastases. There is perihilar fullness and indistinctness ofthe pulmonary vasculature. No new airspace consolidation. PLEURA:No pleural effusion or pneumothorax. MEDIASTINUM:The cardiomediastinal silhouette appears normal in size and shape. BONES/SOFT TISSUES:No acute osseous injury. Stable spinal fusion hardware. ABDOMEN:No free air under the diaphragm. IMPRESSION: No new airspace consolidation. Unchanged bilateral pulmonary metastases. Signed: Kevon Frazier MD Report Verified Date/Time: 07/04/2022 18:33:48 BASIC METABOLIC [id number] 05:51:36 Test Item Value Reference Range Interpretation Comments SODIUM (BEAKER) 139 meq/L 136-145 (test code = 381) POTASSIUM 3.6 meq/L 3.5-5.1 (BEAKER) (test code = 379) CHLORIDE (BEAKER) 105 meq/L 98-107 (test code = 382) CO2 (BEAKER) 23 meq/L 22-29 (test code = 355) BLOOD UREA 13 mg/dL 7-21 NITROGEN (BEAKER) (test code = 354) CREATININE 0.61 mg/dL 0.57-1.25 (BEAKER) (test code = 358) GLUCOSE RANDOM 102 mg/dL 70-105 (BEAKER) (test code = 652) CALCIUM (BEAKER) 9.1 mg/dL 8.4-10.2 (test code = 697) EGFR (BEAKER) 125 Interpretatio n of eGFR (test code = mL/min/1.73 values Stage De scription 1092) sq m Result G1 Francine l or high >=90 G2 Mildly decreased 60-89 G3a Mildl y to moderately 45-5 9 G3b Moderately to s everely 30-44 G4 Severl y decreased 15-29 G5 Kidney failure <15Reported eGF R is based on the CKD-EPI 202 equation that d oes not use a race coefficientEsti mated GFR is not as accur ate as Creatinine Em grayson in predicting glom erular filtration rate . Estimated GFR is not appl icable for dialysis patien ts Sales And Operations Trainee ID - KRISTINA WPROTHROMBIN TIME/[id number] 05:40:12 Test Item Value Reference Range Interpretation Comments PROTIME (BEAKER) 15.2 seconds 11.9-14.2 H (test code = 759) INR (BEAKER) (test 1.27 See_Comment [Automat ed message] code = 370) The system [employer] generated this result transmitted ref erence range: <=5.90. The reference range was not used to int erpret this result as normal/abnormal . RECOMMENDED COUMADIN/WARFARIN INR THERAPY RANGESSTANDARD DOSE: 2.0 - 3.0 Includes: PROPHYLAXIS for venous thrombosis, systemic embolization; TREATMENT for venous thrombosis and/or pulmonary embolus.HIGH RISK: Target INR is 2.5-3.5 for patients with mechanical heart valves.CBC W/PLT COUNT & AUTO [id number] 05:31:27 Test Item Value Reference Range Interpretation Comments WHITE BLOOD CELL COUNT (BEAKER) 11.2 K/ L 3.5-10.5 H (test code = 775) RED BLOOD CELL COUNT (BEAKER) 4.07 M/ L 4.63-6.08 L (test code = 761) HEMOGLOBIN (BEAKER) (test code = 10.5 GM/DL 13.7-17.5 L 410) HEMATOCRIT (BEAKER) (test code = 34.4 % 40.1-51.0 L 411) MEAN CORPUSCULAR VOLUME (BEAKER) 85 fL 79-92 (test code = 753) MEAN CORPUSCULAR HEMOGLOBIN 25.8 pg 25.7-32.2 (BEAKER) (test code = 751) MEAN CORPUSCULAR HEMOGLOBIN CONC 30.5 GM/DL 32.3-36.5 L (BEAKER) (test code = 752) RED CELL DISTRIBUTION WIDTH 13.8 % 11.6-14.4 (BEAKER) (test code = 412) PLATELET COUNT (BEAKER) (test 591 K/CU MM 150-450 H code = 756) MEAN PLATELET VOLUME (BEAKER) 8.6 fL 9.4-12.4 L (test code = 754) NUCLEATED RED BLOOD CELLS 0 /100 WBC 0-0 (BEAKER) (test code = 413) NEUTROPHILS RELATIVE PERCENT 73 % (BEAKER) (test code = 429) LYMPHOCYTES RELATIVE PERCENT 20 % (BEAKER) (test code = 430) MONOCYTES RELATIVE PERCENT 6 % (BEAKER) (test code = 431) EOSINOPHILS RELATIVE PERCENT 0 % (BEAKER) (test code = 432) BASOPHILS RELATIVE PERCENT 0 % (BEAKER) (test code = 437) NEUTROPHILS ABSOLUTE COUNT 8.22 K/ L 1.78-5.38 H (BEAKER) (test code = 670) LYMPHOCYTES ABSOLUTE COUNT 2.22 K/ L 1.32-3.57 (BEAKER) (test code = 414) MONOCYTES ABSOLUTE COUNT (BEAKER) 0.66 K/ L 0.30-0.82 (test code = 415) EOSINOPHILS ABSOLUTE COUNT 0.04 K/ L 0.04-0.54 (BEAKER) (test code = 416) BASOPHILS ABSOLUTE COUNT (BEAKER) 0.02 K/ L 0.01-0.08 (test code = 417) IMMATURE GRANULOCYTES-RELATIVE 0.40 % 0.00-1.00 PERCENT (BEAKER) (test code = 2801) BASIC METABOLIC [id number] 06:35:44 Test Item Value Reference Range Interpretation Comments SODIUM (BEAKER) 136 meq/L 136-145 (test code = 381) POTASSIUM 4.3 meq/L 3.5-5.1 (BEAKER) (test code = 379) CHLORIDE (BEAKER) 103 meq/L 98-107 (test code = 382) CO2 (BEAKER) 22 meq/L 22-29 (test code = 355) BLOOD UREA 10 mg/dL 7-21 NITROGEN (BEAKER) (test code = 354) CREATININE 0.65 mg/dL 0.57-1.25 (BEAKER) (test code = 358) GLUCOSE RANDOM 119 mg/dL 70-105 H (BEAKER) (test code = 652) CALCIUM (BEAKER) 9.7 mg/dL 8.4-10.2 (test code = 697) EGFR (BEAKER) 123 Interpretatio n of eGFR (test code = mL/min/1.73 values Stage De scription 1092) sq m Result G1 Francine l or high >=90 G2 Mildly decreased 60-89 G3a Mildl y to moderately 45-5 9 G3b Moderately to s everely 30-44 G4 Severl y decreased 15-29 G5 Kidney failure <15Reported eGF R is based on the CKD-EPI 2020 equation that d oes not use a race coefficientEsti mated GFR is not as accur ate as Creatinine Em kenan in predicting glom erular filtration rate . Estimated GFR is not appl icable for dialysis patien ts Sales And Operations Trainee ID - PIAYA LCBC W/PLT COUNT & AUTO [id number] 05:49:18 Test Item Value Reference Range Interpretation Comments WHITE BLOOD CELL COUNT (BEAKER) 12.2 K/ L 3.5-10.5 H (test code = 775) RED BLOOD CELL COUNT (BEAKER) 4.19 M/ L 4.63-6.08 L (test code = 761) HEMOGLOBIN (BEAKER) (test code = 11.0 GM/DL 13.7-17.5 L 410) HEMATOCRIT (BEAKER) (test code = 34.9 % 40.1-51.0 L 411) MEAN CORPUSCULAR VOLUME (BEAKER) 83 fL 79-92 (test code = 753) MEAN CORPUSCULAR HEMOGLOBIN 26.3 pg 25.7-32.2 (BEAKER) (test code = 751) MEAN CORPUSCULAR HEMOGLOBIN CONC 31.5 GM/DL 32.3-36.5 L (BEAKER) (test code = 752) RED CELL DISTRIBUTION WIDTH 13.7 % 11.6-14.4 (BEAKER) (test code = 412) PLATELET COUNT (BEAKER) (test 586 K/CU MM 150-450 H code = 756) MEAN PLATELET VOLUME (BEAKER) 8.4 fL 9.4-12.4 L (test code = 754) NUCLEATED RED BLOOD CELLS 0 /100 WBC 0-0 (BEAKER) (test code = 413) NEUTROPHILS RELATIVE PERCENT 85 % (BEAKER) (test code = 429) LYMPHOCYTES RELATIVE PERCENT 9 % (BEAKER) (test code = 430) MONOCYTES RELATIVE PERCENT 6 % (BEAKER) (test code = 431) EOSINOPHILS RELATIVE PERCENT 0 % (BEAKER) (test code = 432) BASOPHILS RELATIVE PERCENT 0 % (BEAKER) (test code = 437) NEUTROPHILS ABSOLUTE COUNT 10.43 K/ L 1.78-5.38 H (BEAKER) (test code = 670) LYMPHOCYTES ABSOLUTE COUNT 1.07 K/ L 1.32-3.57 L (BEAKER) (test code = 414) MONOCYTES ABSOLUTE COUNT (BEAKER) 0.67 K/ L 0.30-0.82 (test code = 415) EOSINOPHILS ABSOLUTE COUNT 0.00 K/ L 0.04-0.54 L (BEAKER) (test code = 416) BASOPHILS ABSOLUTE COUNT (BEAKER) 0.01 K/ L 0.01-0.08 (test code = 417) IMMATURE GRANULOCYTES-RELATIVE 0.30 % 0.00-1.00 PERCENT (BEAKER) (test code = 2801) RAD, CHEST, 1 VIEW, NON [id number] 19:25:00Reason for exam:->[facility] : 1985 Sex: MFINAL REPORT Chest one view. Clinical history: ILA CATH PLACEMENT Comparison: June 26, 2022 Discussion: A frontal chest is provided. Cardiac silhouette may be magnified by portable technique. There is widening of the mediastinum, suggestive of adenopathy. ET is 3.5 cm above the samantha. A right central line projects over the distal SVC. Low lung volume. There are numerous pulmonary nodules bilaterally, compatible with extensive metastasis. No pneumothorax. No large effusion. Signed: Danis Gordon Verified Date/Time: 07/02/2022 19:25:12 Reading Location: [facility] B1 [id number] Ortho Consult Reading Room FL, FLUOR[place], NON- SPECIFIC, UP TO 1 [id number] 17:45:00Reason for exam:->Need port placement for treatment of testicular cancer [facility] : 1985 Sex: MAn imaging unit was utilized for this procedure. No radiologist interpretation was requested. Refer to the EMR for findings. Refer to PACS for any patient radiation dose information.[id number] 11:21:39 Test Item Value Reference Range Interpretation Comments FERRITIN (BEAKER) (test code = 217.42 ng/mL 5.00-275.00 361) Sales And Operations Trainee ID - albertina PradipRON, TIBC, % SAT. (WITHOUT FERRITIN)2022-07-02 11:00:36 Test Item Value Reference Range Interpretation Comments IRON (BEAKER) (test code = 547) 15.0 ug/dL 40.0-160.0 L TOTAL IRON BINDING CAPACITY 210 ug/dL 250-450 L (BEAKER) (test code = 769) IRON % SATURATION (2) (BEAKER) 7 % 20-55 L (test code = 2590) Sales And Operations Trainee ID - albertina wBASIC METABOLIC [id number] 06:32:35 Test Item Value Reference Range Interpretation Comments SODIUM (BEAKER) 134 meq/L 136-145 L (test code = 381) POTASSIUM 4.1 meq/L 3.5-5.1 (BEAKER) (test code = 379) CHLORIDE (BEAKER) 103 meq/L 98-107 (test code = 382) CO2 (BEAKER) 20 meq/L 22-29 L (test code = 355) BLOOD UREA 9 mg/dL 7-21 NITROGEN (BEAKER) (test code = 354) CREATININE 0.67 mg/dL 0.57-1.25 (BEAKER) (test code = 358) GLUCOSE RANDOM 100 mg/dL 70-105 (BEAKER) (test code = 652) CALCIUM (BEAKER) 9.2 mg/dL 8.4-10.2 (test code = 697) EGFR (BEAKER) 123 Interpretatio n of eGFR (test code = mL/min/1.73 values Stage De scription 1092) sq m Result G1 Francine l or high >=90 G2 Mildly decreased 60-89 G3a Mildl y to moderately 45-5 9 G3b Moderately to s everely 30-44 G4 Severl y decreased 15-29 G5 Kidney failure <15Reported eGF R is based on the CKD-EPI 2020 equation that d oes not use a race coefficientEsti mated GFR is not as accur ate as Creatinine Em kenan in predicting glom erular filtration rate . Estimated GFR is not appl icable for dialysis patien ts Sales And Operations Trainee ID - KRISTINA WCBC W/PLT COUNT & AUTO [id number] 06:18:50 Test Item Value Reference Range Interpretation Comments WHITE BLOOD CELL COUNT (BEAKER) 11.3 K/ L 3.5-10.5 H (test code = 775) RED BLOOD CELL COUNT (BEAKER) 4.01 M/ L 4.63-6.08 L (test code = 761) HEMOGLOBIN (BEAKER) (test code = 10.6 GM/DL 13.7-17.5 L 410) HEMATOCRIT (BEAKER) (test code = 33.5 % 40.1-51.0 L 411) MEAN CORPUSCULAR VOLUME (BEAKER) 84 fL 79-92 (test code = 753) MEAN CORPUSCULAR HEMOGLOBIN 26.4 pg 25.7-32.2 (BEAKER) (test code = 751) MEAN CORPUSCULAR HEMOGLOBIN CONC 31.6 GM/DL 32.3-36.5 L (BEAKER) (test code = 752) RED CELL DISTRIBUTION WIDTH 13.9 % 11.6-14.4 (BEAKER) (test code = 412) PLATELET COUNT (BEAKER) (test 566 K/CU MM 150-450 H code = 756) MEAN PLATELET VOLUME (BEAKER) 8.4 fL 9.4-12.4 L (test code = 754) NUCLEATED RED BLOOD CELLS 0 /100 WBC 0-0 (BEAKER) (test code = 413) NEUTROPHILS RELATIVE PERCENT 78 % (BEAKER) (test code = 429) LYMPHOCYTES RELATIVE PERCENT 15 % (BEAKER) (test code = 430) MONOCYTES RELATIVE PERCENT 6 % (BEAKER) (test code = 431) EOSINOPHILS RELATIVE PERCENT 1 % (BEAKER) (test code = 432) BASOPHILS RELATIVE PERCENT 0 % (BEAKER) (test code = 437) NEUTROPHILS ABSOLUTE COUNT 8.80 K/ L 1.78-5.38 H (BEAKER) (test code = 670) LYMPHOCYTES ABSOLUTE COUNT 1.65 K/ L 1.32-3.57 (BEAKER) (test code = 414) MONOCYTES ABSOLUTE COUNT (BEAKER) 0.71 K/ L 0.30-0.82 (test code = 415) EOSINOPHILS ABSOLUTE COUNT 0.07 K/ L 0.04-0.54 (BEAKER) (test code = 416) BASOPHILS ABSOLUTE COUNT (BEAKER) 0.03 K/ L 0.01-0.08 (test code = 417) IMMATURE GRANULOCYTES-RELATIVE 0.50 % 0.00-1.00 PERCENT (BEAKER) (test code = 2801) BLOOD [id number] 15:01:58 Test Item Value Reference Range Interpretation Comments CULTURE (BEAKER) (test No growth in 5 days code = 1095) The specimen volume collected for this blood culture was below the optimum (10 mL per bottle or 20 mL total). Use of lower volumes may adversely affect recovery and/or detection times of some organisms.BLOOD [id number] 15:01:58 Test Item Value Reference Range Interpretation Comments CULTURE (BEAKER) (test No growth in 5 days code = 1095) BASIC METABOLIC [id number] 06:26:58 Test Item Value Reference Range Interpretation Comments SODIUM (BEAKER) 136 meq/L 136-145 (test code = 381) POTASSIUM 4.1 meq/L 3.5-5.1 Specimen slight ly (BEAKER) (test hemolyzed code = 379) CHLORIDE (BEAKER) 104 meq/L 98-107 (test code = 382) CO2 (BEAKER) 20 meq/L 22-29 L (test code = 355) BLOOD UREA 7 mg/dL 7-21 NITROGEN (BEAKER) (test code = 354) CREATININE 0.62 mg/dL 0.57-1.25 Specimen slight ly (BEAKER) (test hemolyzed code = 358) GLUCOSE RANDOM 94 mg/dL 70-105 (BEAKER) (test code = 652) CALCIUM (BEAKER) 9.2 mg/dL 8.4-10.2 (test code = 697) EGFR (BEAKER) 125 Interpretatio n of eGFR (test code = mL/min/1.73 values Stage De scription 1092) sq m Result G1 Francine l or high >=90 G2 Mildly decreased 60-89 G3a Mildl y to moderately 45-5 9 G3b Moderately to s everely 30-44 G4 Severl y decreased 15-29 G5 Kidney failure <15Reported eGF R is based on the CKD-EPI 2020 equation that d oes not use a race coefficientEsti mated GFR is not as accur ate as Creatinine Em kenan in predicting glom erular filtration rate . Estimated GFR is not appl icable for dialysis patien ts Sales And Operations Trainee ID - PIAYA LCBC W/PLT COUNT & AUTO [id number] 05:39:06 Test Item Value Reference Range Interpretation Comments WHITE BLOOD CELL COUNT (BEAKER) 10.2 K/ L 3.5-10.5 (test code = 775) RED BLOOD CELL COUNT (BEAKER) 4.02 M/ L 4.63-6.08 L (test code = 761) HEMOGLOBIN (BEAKER) (test code = 10.7 GM/DL 13.7-17.5 L 410) HEMATOCRIT (BEAKER) (test code = 33.5 % 40.1-51.0 L 411) MEAN CORPUSCULAR VOLUME (BEAKER) 83 fL 79-92 (test code = 753) MEAN CORPUSCULAR HEMOGLOBIN 26.6 pg 25.7-32.2 (BEAKER) (test code = 751) MEAN CORPUSCULAR HEMOGLOBIN CONC 31.9 GM/DL 32.3-36.5 L (BEAKER) (test code = 752) RED CELL DISTRIBUTION WIDTH 13.8 % 11.6-14.4 (BEAKER) (test code = 412) PLATELET COUNT (BEAKER) (test 576 K/CU MM 150-450 H code = 756) MEAN PLATELET VOLUME (BEAKER) 8.3 fL 9.4-12.4 L (test code = 754) NUCLEATED RED BLOOD CELLS 0 /100 WBC 0-0 (BEAKER) (test code = 413) NEUTROPHILS RELATIVE PERCENT 74 % (BEAKER) (test code = 429) LYMPHOCYTES RELATIVE PERCENT 17 % (BEAKER) (test code = 430) MONOCYTES RELATIVE PERCENT 7 % (BEAKER) (test code = 431) EOSINOPHILS RELATIVE PERCENT 1 % (BEAKER) (test code = 432) BASOPHILS RELATIVE PERCENT 0 % (BEAKER) (test code = 437) NEUTROPHILS ABSOLUTE COUNT 7.50 K/ L 1.78-5.38 H (BEAKER) (test code = 670) LYMPHOCYTES ABSOLUTE COUNT 1.76 K/ L 1.32-3.57 (BEAKER) (test code = 414) MONOCYTES ABSOLUTE COUNT (BEAKER) 0.71 K/ L 0.30-0.82 (test code = 415) EOSINOPHILS ABSOLUTE COUNT 0.12 K/ L 0.04-0.54 (BEAKER) (test code = 416) BASOPHILS ABSOLUTE COUNT (BEAKER) 0.02 K/ L 0.01-0.08 (test code = 417) IMMATURE GRANULOCYTES-RELATIVE 0.40 % 0.00-1.00 PERCENT (BEAKER) (test code = 2801) BASIC METABOLIC [id number] 07:06:17 Test Item Value Reference Range Interpretation Comments SODIUM (BEAKER) 137 meq/L 136-145 (test code = 381) POTASSIUM 3.5 meq/L 3.5-5.1 (BEAKER) (test code = 379) CHLORIDE (BEAKER) 104 meq/L 98-107 (test code = 382) CO2 (BEAKER) 21 meq/L 22-29 L (test code = 355) BLOOD UREA 7 mg/dL 7-21 NITROGEN (BEAKER) (test code = 354) CREATININE 0.66 mg/dL 0.57-1.25 (BEAKER) (test code = 358) GLUCOSE RANDOM 95 mg/dL 70-105 (BEAKER) (test code = 652) CALCIUM (BEAKER) 9.2 mg/dL 8.4-10.2 (test code = 697) EGFR (BEAKER) 123 Interpretatio n of eGFR (test code = mL/min/1.73 values Stage De scription 1092) sq m Result G1 Francine l or high >=90 G2 Mildly decreased 60-89 G3a Mildl y to moderately 45-5 9 G3b Moderately to s everely 30-44 G4 Severl y decreased 15-29 G5 Kidney failure <15Reported eGF R is based on the CKD-EPI 2021 equation that d oes not use a race coefficientEsti mated GFR is not as accur ate as Creatinine Em kenan in predicting glom erular filtration rate . Estimated GFR is not appl icable for dialysis patien ts Sales And Operations Trainee ID - PIAYA LCBC W/PLT COUNT & AUTO [id number] 06:25:33 Test Item Value Reference Range Interpretation Comments WHITE BLOOD CELL COUNT (BEAKER) 10.1 K/ L 3.5-10.5 (test code = 775) RED BLOOD CELL COUNT (BEAKER) 4.04 M/ L 4.63-6.08 L (test code = 761) HEMOGLOBIN (BEAKER) (test code = 10.7 GM/DL 13.7-17.5 L 410) HEMATOCRIT (BEAKER) (test code = 33.8 % 40.1-51.0 L 411) MEAN CORPUSCULAR VOLUME (BEAKER) 84 fL 79-92 (test code = 753) MEAN CORPUSCULAR HEMOGLOBIN 26.5 pg 25.7-32.2 (BEAKER) (test code = 751) MEAN CORPUSCULAR HEMOGLOBIN CONC 31.7 GM/DL 32.3-36.5 L (BEAKER) (test code = 752) RED CELL DISTRIBUTION WIDTH 13.9 % 11.6-14.4 (BEAKER) (test code = 412) PLATELET COUNT (BEAKER) (test 576 K/CU MM 150-450 H code = 756) MEAN PLATELET VOLUME (BEAKER) 8.3 fL 9.4-12.4 L (test code = 754) NUCLEATED RED BLOOD CELLS 0 /100 WBC 0-0 (BEAKER) (test code = 413) NEUTROPHILS RELATIVE PERCENT 72 % (BEAKER) (test code = 429) LYMPHOCYTES RELATIVE PERCENT 19 % (BEAKER) (test code = 430) MONOCYTES RELATIVE PERCENT 8 % (BEAKER) (test code = 431) EOSINOPHILS RELATIVE PERCENT 1 % (BEAKER) (test code = 432) BASOPHILS RELATIVE PERCENT 0 % (BEAKER) (test code = 437) NEUTROPHILS ABSOLUTE COUNT 7.24 K/ L 1.78-5.38 H (BEAKER) (test code = 670) LYMPHOCYTES ABSOLUTE COUNT 1.86 K/ L 1.32-3.57 (BEAKER) (test code = 414) MONOCYTES ABSOLUTE COUNT (BEAKER) 0.79 K/ L 0.30-0.82 (test code = 415) EOSINOPHILS ABSOLUTE COUNT 0.10 K/ L 0.04-0.54 (BEAKER) (test code = 416) BASOPHILS ABSOLUTE COUNT (BEAKER) 0.02 K/ L 0.01-0.08 (test code = 417) IMMATURE GRANULOCYTES-RELATIVE 0.40 % 0.00-1.00 PERCENT (BEAKER) (test code = 2801) BASIC METABOLIC [id number] 05:39:31 Test Item Value Reference Range Interpretation Comments SODIUM (BEAKER) 138 meq/L 136-145 (test code = 381) POTASSIUM 3.6 meq/L 3.5-5.1 (BEAKER) (test code = 379) CHLORIDE (BEAKER) 104 meq/L 98-107 (test code = 382) CO2 (BEAKER) 21 meq/L 22-29 L (test code = 355) BLOOD UREA 8 mg/dL 7-21 NITROGEN (BEAKER) (test code = 354) CREATININE 0.63 mg/dL 0.57-1.25 (BEAKER) (test code = 358) GLUCOSE RANDOM 99 mg/dL 70-105 (BEAKER) (test code = 652) CALCIUM (BEAKER) 9.3 mg/dL 8.4-10.2 (test code = 697) EGFR (BEAKER) 124 Interpretatio n of eGFR (test code = mL/min/1.73 values Stage De scription 1092) sq m Result G1 Francine l or high >=90 G2 Mildly decreased 60-89 G3a Mildl y to moderately 45-5 9 G3b Moderately to s everely 30-44 G4 Severl y decreased 15-29 G5 Kidney failure <15Reported eGF R is based on the CKD-EPI 2020 equation that d oes not use a race coefficientEsti mated GFR is not as accur ate as Creatinine Em grayson in predicting glom erular filtration rate . Estimated GFR is not appl icable for dialysis patien ts Sales And Operations Trainee ID - PIAYA LCBC W/PLT COUNT & AUTO [id number] 05:03:48 Test Item Value Reference Range Interpretation Comments WHITE BLOOD CELL COUNT (BEAKER) 9.3 K/ L 3.5-10.5 (test code = 775) RED BLOOD CELL COUNT (BEAKER) 4.07 M/ L 4.63-6.08 L (test code = 761) HEMOGLOBIN (BEAKER) (test code = 10.8 GM/DL 13.7-17.5 L 410) HEMATOCRIT (BEAKER) (test code = 34.4 % 40.1-51.0 L 411) MEAN CORPUSCULAR VOLUME (BEAKER) 85 fL 79-92 (test code = 753) MEAN CORPUSCULAR HEMOGLOBIN 26.5 pg 25.7-32.2 (BEAKER) (test code = 751) MEAN CORPUSCULAR HEMOGLOBIN CONC 31.4 GM/DL 32.3-36.5 L (BEAKER) (test code = 752) RED CELL DISTRIBUTION WIDTH 13.9 % 11.6-14.4 (BEAKER) (test code = 412) PLATELET COUNT (BEAKER) (test 589 K/CU MM 150-450 H code = 756) MEAN PLATELET VOLUME (BEAKER) 8.5 fL 9.4-12.4 L (test code = 754) NUCLEATED RED BLOOD CELLS 0 /100 WBC 0-0 (BEAKER) (test code = 413) NEUTROPHILS RELATIVE PERCENT 71 % (BEAKER) (test code = 429) LYMPHOCYTES RELATIVE PERCENT 20 % (BEAKER) (test code = 430) MONOCYTES RELATIVE PERCENT 8 % (BEAKER) (test code = 431) EOSINOPHILS RELATIVE PERCENT 2 % (BEAKER) (test code = 432) BASOPHILS RELATIVE PERCENT 0 % (BEAKER) (test code = 437) NEUTROPHILS ABSOLUTE COUNT 6.57 K/ L 1.78-5.38 H (BEAKER) (test code = 670) LYMPHOCYTES ABSOLUTE COUNT 1.84 K/ L 1.32-3.57 (BEAKER) (test code = 414) MONOCYTES ABSOLUTE COUNT (BEAKER) 0.71 K/ L 0.30-0.82 (test code = 415) EOSINOPHILS ABSOLUTE COUNT 0.15 K/ L 0.04-0.54 (BEAKER) (test code = 416) BASOPHILS ABSOLUTE COUNT (BEAKER) 0.02 K/ L 0.01-0.08 (test code = 417) IMMATURE GRANULOCYTES-RELATIVE 0.30 % 0.00-1.00 PERCENT (BEAKER) (test code = 2801) CT, [id number] 17:18:00Unlisted Reason for Exam - Click Yes and Enter Reason Below->NoProtocol Please Specify:->Standard ProtocolWill this procedure require oral contrast?->No [facility] : 1985 Sex: MFINAL REPORT CT of the Chest, abdomen and pelvis dated 06/28/2022 Clinical information: Urologic cancer, staging Comment: Axial images of the chest, abdomen, and pelvis were obtained from thoracic inlet to the pubic symphysis with intravenous contrast. This exam was performed according to our departmental dose-optimization program, which includes automated exposure control, adjustment of the mA and/or kV according to patient size and/or use of interactive reconstruction technique. Both thyroid lobes are normal in appearance. Heart is normal in size. Great vessels are unremarkable. Adenopathy is seen in the paratracheal, precarinal, subcarinal, and prevascular mediastinum. Enlarged lymph nodes are seen also seen in the bilateral perihilar region. Largest mediastinal lymph node measuresapproximately 1.8 x 2.7 cm. Largest perihilar lymph node measures approximately 2.2 x 2.8 cm. Trachea and mainstem bronchi are patent. Numerous nodular and mass lesions are seen in both lungs with the largest measuring 2.4 x 3 cm. No pleural effusion or pleural based mass is seen. Liver and spleen arenormal in size. No focal lesion is seen in the liver or the spleen. Gallbladder is contracted. No gallstone or biliary dilatation is noted. Pancreas and adrenals are unremarkable. Both kidneys are normal in size and functioning. No hydronephrosis, hydroureter, or urolithiasis is noted. The small and large bowel are unremarkable. Appendix is normal in caliber. Enlarged lymph nodes are seen in the periaortic, aortocaval, and paracaval retroperitoneum. Largest lymph node measures approximately 2.7 x 3.3 cm. Prostate is normal in size. The urinary bladder is contracted. Air- containing soft tissue mass is seen in the left gluteal region measuring approximately 4.5 x 5.8 cm adjacent to the left ischium.Osteosclerotic changes is seen in the left ischium. Impression: 1. Mediastinal, perihilar, and retrop eritoneal adenopathy.2. Pulmonary metastasis.3. Air continues soft tissue mass in the left gluteal region with osteoblastic changes in the adjacent ischium suggestive of infectious or neoplastic process. Please correlate clinically. Signed: Jorje Santos MDReport Verified Date/Time: 06/28/2022 17:18:11 Reading Location: [facility] B1 C013Y CT Body Reading Room CT, CHEST, WITH [id number] 17:18:00 Unlisted Reason for Exam - Click Yes and Enter Reason Below->No [facility] : 1985 Sex: MFINAL REPORT CT of the Chest, abdomen and pelvis dated 06/28/2022 Clinical information: Urologic cancer, staging Comment: Axial images of the chest, abdomen, and pelvis were obtained from thoracic inlet to the pubic symphysis with intravenous contrast. This exam was performed according to our departmental dose-optimization program, which includes automated exposure control, adjustment of the mA and/or kV according to patient size and/or use of interactive reconstruction technique. Both thyroid lobes are normal in appearance. Heart is normal in size. Great vessels are unremarkable. Adenopathy is seen in the paratracheal, precarinal, subcarinal, and prevascular mediastinum. Enlarged lymphnodes are seen also seen in the bilateral perihilar region. Largest mediastinal lymph node measures approximately 1.8 x 2.7 cm. Largest perihilar lymph node measures approximately 2.2 x 2.8 cm. Tracheaand mainstem bronchi are patent. Numerous nodular and mass lesions are seen in both lungs with the largest measuring 2.4 x 3 cm. No pleural effusion or pleural based mass is seen. Liver and spleen are normal in size. No focal lesion is seen in the liver or the spleen. Gallbladder is contracted. No gallstone or biliary dilatation is noted. Pancreas and adrenals are unremarkable. Both kidneys are normal in size and functioning. No hydronephrosis, hydroureter, or urolithiasis is noted. The small and large bowel are unremarkable. Appendix is normal in caliber. Enlarged lymph nodes are seen in the periaortic, aortocaval, and paracaval retroperitoneum. Largest lymph node measures approximately 2.7 x 3.3 cm. Prostate is normal in size. The urinary bladder is contracted. Air- containing soft tissue mass is seen in the left gluteal region measuring approximately 4.5 x 5.8 cm adjacent to the left ischium. Osteosclerotic changes is seen in the left ischium. Impression: 1. Mediastinal, perihilar, and retrope ritoneal adenopathy.2. Pulmonary metastasis.3. Air continues soft tissue mass in the left gluteal region with osteoblastic changes in the adjacent ischium suggestive of infectious or neoplastic process. Please correlate clinically. Signed: Jorje Santos MDReport Verified Date/Time: 06/28/2022 17:18:11 Reading Location: [address] Body Reading Room Urine [id number] 11:13:57 Test Item Value Reference Range Interpretation Comments Result (test code = 6463-4) [facility] [id number] 11:13:57 Test Item Value Reference Range Interpretation Comments Result (test code = 6463-4) No growth [facility] [id number] 11:13:57 Test Item Value Reference Range Interpretation Comments Result (test code = 6463-4) No growth [facility]OL[facility] [id number] 07:08:03 Test Item Value Reference Range Interpretation Comments SODIUM (BEAKER) 135 meq/L 136-145 L (test code = 381) POTASSIUM 3.7 meq/L 3.5-5.1 (BEAKER) (test code = 379) CHLORIDE (BEAKER) 104 meq/L 98-107 (test code = 382) CO2 (BEAKER) 20 meq/L 22-29 L (test code = 355) BLOOD UREA 6 mg/dL 7-21 L NITROGEN (BEAKER) (test code = 354) CREATININE 0.57 mg/dL 0.57-1.25 (BEAKER) (test code = 358) GLUCOSE RANDOM 93 mg/dL 70-105 (BEAKER) (test code = 652) CALCIUM (BEAKER) 8.9 mg/dL 8.4-10.2 (test code = 697) EGFR (BEAKER) 127 Interpretatio n of eGFR (test code = mL/min/1.73 values Stage De scription 1092) sq m Result G1 Francine l or high >=90 G2 Mildly decreased 60-89 G3a Mildl y to moderately 45-5 9 G3b Moderately to s everely 30-44 G4 Severl y decreased 15-29 G5 Kidney failure <15Reported eGF R is based on the CKD-EPI 2021 equation that d oes not use a race coefficientEsti mated GFR is not as accur ate as Creatinine Em grayson in predicting glom erular filtration rate . Estimated GFR is not appl icable for dialysis patien ts Sales And Operations Trainee ID - BSCBC W/PLT COUNT & AUTO [id number] 05:07:24 Test Item Value Reference Range Interpretation Comments WHITE BLOOD CELL COUNT (BEAKER) 9.6 K/ L 3.5-10.5 (test code = 775) RED BLOOD CELL COUNT (BEAKER) 4.05 M/ L 4.63-6.08 L (test code = 761) HEMOGLOBIN (BEAKER) (test code = 10.7 GM/DL 13.7-17.5 L 410) HEMATOCRIT (BEAKER) (test code = 34.1 % 40.1-51.0 L 411) MEAN CORPUSCULAR VOLUME (BEAKER) 84 fL 79-92 (test code = 753) MEAN CORPUSCULAR HEMOGLOBIN 26.4 pg 25.7-32.2 (BEAKER) (test code = 751) MEAN CORPUSCULAR HEMOGLOBIN CONC 31.4 GM/DL 32.3-36.5 L (BEAKER) (test code = 752) RED CELL DISTRIBUTION WIDTH 14.0 % 11.6-14.4 (BEAKER) (test code = 412) PLATELET COUNT (BEAKER) (test 584 K/CU MM 150-450 H code = 756) MEAN PLATELET VOLUME (BEAKER) 8.4 fL 9.4-12.4 L (test code = 754) NUCLEATED RED BLOOD CELLS 0 /100 WBC 0-0 (BEAKER) (test code = 413) NEUTROPHILS RELATIVE PERCENT 72 % (BEAKER) (test code = 429) LYMPHOCYTES RELATIVE PERCENT 19 % (BEAKER) (test code = 430) MONOCYTES RELATIVE PERCENT 7 % (BEAKER) (test code = 431) EOSINOPHILS RELATIVE PERCENT 2 % (BEAKER) (test code = 432) BASOPHILS RELATIVE PERCENT 0 % (BEAKER) (test code = 437) NEUTROPHILS ABSOLUTE COUNT 6.92 K/ L 1.78-5.38 H (BEAKER) (test code = 670) LYMPHOCYTES ABSOLUTE COUNT 1.78 K/ L 1.32-3.57 (BEAKER) (test code = 414) MONOCYTES ABSOLUTE COUNT (BEAKER) 0.69 K/ L 0.30-0.82 (test code = 415) EOSINOPHILS ABSOLUTE COUNT 0.14 K/ L 0.04-0.54 (BEAKER) (test code = 416) BASOPHILS ABSOLUTE COUNT (BEAKER) 0.02 K/ L 0.01-0.08 (test code = 417) IMMATURE GRANULOCYTES-RELATIVE 0.30 % 0.00-1.00 PERCENT (BEAKER) (test code = 2801) ALPHA FETOPROTEIN (AFP), TUMOR [id number] 20:38:58 Test Item Value Reference Range Interpretation Comments ALPHA-FETOPROTEIN (BEAKER) (test 20.9 ng/mL <10.0 H code = 1094) Sales And Operations Trainee ID - BSHCG, QUANTITATIVE, [id number] 20:38:57 Test Item Value Reference Range Interpretation Comments GONADOTROPIN, CHORIONIC (HCG) QUANT 1 mIU/mL (BEAKER) (test code = 649) Non- Females: <10 mIU/mL Females: Gestation Age Reference Range(mIU/mL) 0.2-1 Week 5-50 1-2 Weeks 50-500 2-3 Weeks 100-5,000 3-4 Weeks 500-10,000 4-5 Weeks 1,000-50,000 5-6 Weeks 10,000-100,000 6-8 Weeks 15,000- 200,000 2-3 Months 10,000-100,000 Sales And Operations Trainee ID - BSLACTATE DEHYDROGENASE (LDH) 2022-06-27 20:14:18 Test Item Value Reference Range Interpretation Comments LACTATE DEHYDROGENASE (BEAKER) (test 959 U/L 125-220 H code = 635) Sales And Operations Trainee ID - BSBASIC METABOLIC [id number] 06:01:24 Test Item Value Reference Range Interpretation Comments SODIUM (BEAKER) 138 meq/L 136-145 (test code = 381) POTASSIUM 3.6 meq/L 3.5-5.1 (BEAKER) (test code = 379) CHLORIDE (BEAKER) 105 meq/L 98-107 (test code = 382) CO2 (BEAKER) 22 meq/L 22-29 (test code = 355) BLOOD UREA 7 mg/dL 7-21 NITROGEN (BEAKER) (test code = 354) CREATININE 0.61 mg/dL 0.57-1.25 (BEAKER) (test code = 358) GLUCOSE RANDOM 98 mg/dL 70-105 (BEAKER) (test code = 652) CALCIUM (BEAKER) 8.9 mg/dL 8.4-10.2 (test code = 697) EGFR (BEAKER) 125 Interpretatio n of eGFR (test code = mL/min/1.73 values Stage De scription 1092) sq m Result G1 Francine l or high >=90 G2 Mildly decreased 60-89 G3a Mildl y to moderately 45-5 9 G3b Moderately to s everely 30-44 G4 Severl y decreased 15-29 G5 Kidney failure <15Reported eGF R is based on the CKD-EPI 2020 equation that d oes not use a race coefficientEsti mated GFR is not as accur ate as Creatinine Em kenan in predicting glom erular filtration rate . Estimated GFR is not appl icable for dialysis patien ts Sales And Operations Trainee ID - YARED [id number] 06:01:24 Test Item Value Reference Range Interpretation Comments MAGNESIUM (BEAKER) (test code = 2.1 mg/dL 1.6-2.6 627) Sales And Operations Trainee ID - YARED GPROTHROMBIN TIME/[id number] 05:57:59 Test Item Value Reference Range Interpretation Comments PROTIME (BEAKER) 15.8 seconds 11.9-14.2 H (test code = 759) INR (BEAKER) (test 1.34 See_Comment [Automat ed message] code = 370) The system [employer] generated this result transmitted ref erence range: <=5.90. The reference range was not used to int erpret this result as normal/abnormal . RECOMMENDED COUMADIN/WARFARIN INR THERAPY RANGESSTANDARD DOSE: 2.0 - 3.0 Includes: PROPHYLAXIS for venous thrombosis, systemic embolization; TREATMENT for venous thrombosis and/or pulmonary embolus.HIGH RISK: Target INR is 2.5-3.5 for patients with mechanical heart valves.CBC W/PLT COUNT & AUTO [id number] 05:42:05 Test Item Value Reference Range Interpretation Comments WHITE BLOOD CELL COUNT (BEAKER) 10.6 K/ L 3.5-10.5 H (test code = 775) RED BLOOD CELL COUNT (BEAKER) 4.00 M/ L 4.63-6.08 L (test code = 761) HEMOGLOBIN (BEAKER) (test code = 10.6 GM/DL 13.7-17.5 L 410) HEMATOCRIT (BEAKER) (test code = 33.5 % 40.1-51.0 L 411) MEAN CORPUSCULAR VOLUME (BEAKER) 84 fL 79-92 (test code = 753) MEAN CORPUSCULAR HEMOGLOBIN 26.5 pg 25.7-32.2 (BEAKER) (test code = 751) MEAN CORPUSCULAR HEMOGLOBIN CONC 31.6 GM/DL 32.3-36.5 L (BEAKER) (test code = 752) RED CELL DISTRIBUTION WIDTH 14.1 % 11.6-14.4 (BEAKER) (test code = 412) PLATELET COUNT (BEAKER) (test 591 K/CU MM 150-450 H code = 756) MEAN PLATELET VOLUME (BEAKER) 8.5 fL 9.4-12.4 L (test code = 754) NUCLEATED RED BLOOD CELLS 0 /100 WBC 0-0 (BEAKER) (test code = 413) NEUTROPHILS RELATIVE PERCENT 75 % (BEAKER) (test code = 429) LYMPHOCYTES RELATIVE PERCENT 16 % (BEAKER) (test code = 430) MONOCYTES RELATIVE PERCENT 7 % (BEAKER) (test code = 431) EOSINOPHILS RELATIVE PERCENT 2 % (BEAKER) (test code = 432) BASOPHILS RELATIVE PERCENT 0 % (BEAKER) (test code = 437) NEUTROPHILS ABSOLUTE COUNT 8.00 K/ L 1.78-5.38 H (BEAKER) (test code = 670) LYMPHOCYTES ABSOLUTE COUNT 1.72 K/ L 1.32-3.57 (BEAKER) (test code = 414) MONOCYTES ABSOLUTE COUNT (BEAKER) 0.70 K/ L 0.30-0.82 (test code = 415) EOSINOPHILS ABSOLUTE COUNT 0.17 K/ L 0.04-0.54 (BEAKER) (test code = 416) BASOPHILS ABSOLUTE COUNT (BEAKER) 0.01 K/ L 0.01-0.08 (test code = 417) IMMATURE GRANULOCYTES-RELATIVE 0.40 % 0.00-1.00 PERCENT (BEAKER) (test code = 2801) SARS-CoV2/Influenza/RSV RT-PCR (Symptomatic ONLY)2022-06-26 15:40:09 Test Item Value Reference Interpretation Comments Range SARS-COV2/RT-PCR Negative Negative The SARS-Co V-2 (test code = target nucleic 11626-8) acids are not detected in thi s specimen. Negat leonardo results do not preclude SARS-C oV-2 infection and should not be u sed as the sole bas is for patient management decisions. Nega tive results must be combined with clinical observations, patient history , and epidemiolog ical information. A false negative result may occu r if a specimen is improperly collected, transported or handled. This S ARS CoV-2 test is a rapid, real-lavern e RT-PCR test intended for th e qualitative detection of nucleic acid fr om SARS-CoV-2 in a nasopharyngeal swab specimen [facility] from individual s suspected of COVID-19 by the ir healthcare provider. Influenza A RT-PCR Negative Negative The Flu A target (test code = [place] [address]-1) not detected in this specimen. Influenza B RT-PCR Negative Negative The Flu B target (test code = [place] [address]-9) not detected in this specimen. RSV by RT-PCR (test Negative Negative The RSV target code = 05018-1) nucleic acid s are not detected in this specimen. SUMEET (test code = The presence of SUMEET) SARS-CoV-2/FLU/RSV viral nucleic acids cannot rule out co-infections or disease caused by other viral or bacterial pathogens. As with any molecular test, mutations within the target regions of the Xpert Xpress SARS-CoV-2/Flu/RSV test could affect primer and/or probe binding resulting in failure to detect the presence of virus or the virus being detected less predictably. False negative results may occur if the virus is present at levels below the analytical limit of detection in this specimen. This Xpert Xpress SARS-CoV-2/Flu/RSV test is a rapid, real-time RT-PCR test intended for the qualitative detection of nucleic acid from Xpert Xpress SARS-CoV-2/Flu/RSV in a nasopharyngeal swab specimen collected from individuals suspected of Xpert Xpress SARS-CoV-2/Flu/RSV by their healthcare provider. Results from [facility] Xpert Xpress SARS-CoV-2/Flu/RSV test should be correlated with the clinical history, epidemiological data, and other data available to the clinician evaluating the patient. Viral nucleic acid may persist in vivo, independent of virus viability. Detection of analyte target(s) does not imply that the corresponding virus(es) are infectious or are the causative agents for clinical symptoms. This test has not been Food and Drug Administration (FDA) cleared or approved and has been authorized by FDA under an Emergency Use Authorization (EUA). This EUA will be effective until the declaration that circumstances exist justifying the authorization of the emergency use of in vitro diagnostic tests for detection and/or diagnosis of COVID-19 is terminated under Section 564(b)(2) of the Act or the EUA is revoked under Section 564(g) of the Act. Fact Sheet for Healthcare Providers:https://w [employer]/Docu ments/Xpert%20Xpres s%20SARS%20CoV-2/Fa ct%20Sheets/302-390 2%90CPOG-NEV-3%20HE ALTHCARE%20PROVIDER S%20FACT%20SHEET.pd f Fact Sheet for Healthcare Patients:https://maria teresa [employer]/Docum ents/Xpert%20Xpress %20SARS%20Cov-2/Fac t%20Sheets/302-3801 %07NZDO-IBI-3%20PAT IENT%20FACT%20SHEET .pdf Lab Interpretation Normal (test code = 68881-9) [facility]Symptomatic ONLY) 2022-06-26 15:40:09 Test Item Value Reference Interpretation Comments Range SARS-COV2/RT-PCR Negative Negative The SARS-Co V-2 (test code = target nucleic 52028-2) acids are not detected in thi s specimen. Negat leonardo results do not preclude SARS-C oV-2 infection and should not be u sed as the sole bas is for patient management decisions. Nega tive results must be combined with clinical observations, patient history , and epidemiolog ical information. A false negative result may occu r if a specimen is improperly collected, transported or handled. This S ARS CoV-2 test is a rapid, real-lavern e RT-PCR test intended for th e qualitative detection of nucleic acid fr om SARS-CoV-2 in a nasopharyngeal swab specimen [facility] from individual s suspected of COVID-19 by the ir healthcare provider. Influenza A RT-PCR Negative Negative The Flu A target (test code = [place] [address]-9) not detected in this specimen. Influenza B RT-PCR Negative Negative The Flu B target (test code = [place] 43163-9) not detected in this specimen. RSV by RT-PCR (test Negative Negative The RSV target code = 09062-4) nucleic acid s are not detected in this specimen. SUMEET (test code = The presence of SUMEET) SARS-CoV-2/FLU/RSV viral nucleic acids cannot rule out co-infections or disease caused by other viral or bacterial pathogens. As with any molecular test, mutations within the target regions of the Xpert Xpress SARS-CoV-2/Flu/RSV test could affect primer and/or probe binding resulting in failure to detect the presence of virus or the virus being detected less predictably. False negative results may occur if the virus is present at levels below the analytical limit of detection in this specimen. This Xpert Xpress SARS-CoV-2/Flu/RSV test is a rapid, real-time RT-PCR test intended for the qualitative detection of nucleic acid from Xpert Xpress SARS-CoV-2/Flu/RSV in a nasopharyngeal swab specimen collected from individuals suspected of Xpert Xpress SARS-CoV-2/Flu/RSV by their healthcare provider. Results from [facility] Xpert Xpress SARS-CoV-2/Flu/RSV test should be correlated with the clinical history, epidemiological data, and other data available to the clinician evaluating the patient. Viral nucleic acid may persist in vivo, independent of virus viability. Detection of analyte target(s) does not imply that the corresponding virus(es) are infectious or are the causative agents for clinical symptoms. This test has not been Food and Drug Administration (FDA) cleared or approved and has been authorized by FDA under an Emergency Use Authorization (EUA). This EUA will be effective until the declaration that circumstances exist justifying the authorization of the emergency use of in vitro diagnostic tests for detection and/or diagnosis of COVID-19 is terminated under Section 564(b)(2) of the Act or the EUA is revoked under Section 564(g) of the Act. Fact Sheet for Healthcare Providers:https://w [employer]/Docu ments/Xpert%20Xpres s%20SARS%20CoV-2/Fa ct%20Sheets/302-390 2%58WEUO-YJU-2%20HE ALTHCARE%20PROVIDER S%20FACT%20SHEET.pd f Fact Sheet for Healthcare Patients:https://[employer]/Docum ents/Xpert%20Xpress %20SARS%20Cov-2/Fac t%20Sheets/302-3801 %79LATA-LHP-9%20PAT IENT%20FACT%20SHEET .pdf Lab Interpretation Normal (test code = 24924-0) [facility] (Symptomatic ONLY) 2022-06-26 15:40:09 Test Item Value Reference Interpretation Comments Range SARS-COV2/RT-PCR Negative Negative The SARS-Co V-2 (test code = target nucleic 17672-9) acids are not detected in thi s specimen. Negat leonardo results do not preclude SARS-C oV-2 infection and should not be u sed as the sole bas is for patient management decisions. Nega tive results must be combined with clinical observations, patient history , and epidemiolog ical information. A false negative result may occu r if a specimen is improperly collected, transported or handled. This S ARS CoV-2 test is a rapid, real-lavern e RT-PCR test intended for th e qualitative detection of nucleic acid fr om SARS-CoV-2 in a nasopharyngeal swab specimen [facility] from individual s suspected of COVID-19 by the ir healthcare provider. Influenza A RT-PCR Negative Negative The Flu A target (test code = [place] [address]-3) not detected in this specimen. Influenza B RT-PCR Negative Negative The Flu B target (test code = [place] 16329-8) not detected in this specimen. RSV by RT-PCR (test Negative Negative The RSV target code = 39259-6) nucleic acid s are not detected in this specimen. SUMEET (test code = The presence of SUMEET) SARS-CoV-2/FLU/RSV viral nucleic acids cannot rule out co-infections or disease caused by other viral or bacterial pathogens. As with any molecular test, mutations within the target regions of the Xpert Xpress SARS-CoV-2/Flu/RSV test could affect primer and/or probe binding resulting in failure to detect the presence of virus or the virus being detected less predictably. False negative results may occur if the virus is present at levels below the analytical limit of detection in this specimen. This Xpert Xpress SARS-CoV-2/Flu/RSV test is a rapid, real-time RT-PCR test intended for the qualitative detection of nucleic acid from Xpert Xpress SARS-CoV-2/Flu/RSV in a nasopharyngeal swab specimen collected from individuals suspected of Xpert Xpress SARS-CoV-2/Flu/RSV by their healthcare provider. Results from [facility] Xpert Xpress SARS-CoV-2/Flu/RSV test should be correlated with the clinical history, epidemiological data, and other data available to the clinician evaluating the patient. Viral nucleic acid may persist in vivo, independent of virus viability. Detection of analyte target(s) does not imply that the corresponding virus(es) are infectious or are the causative agents for clinical symptoms. This test has not been Food and Drug Administration (FDA) cleared or approved and has been authorized by FDA under an Emergency Use Authorization (EUA). This EUA will be effective until the declaration that circumstances exist justifying the authorization of the emergency use of in vitro diagnostic tests for detection and/or diagnosis of COVID-19 is terminated under Section 564(b)(2) of the Act or the EUA is revoked under Section 564(g) of the Act. Fact Sheet for Healthcare Providers:https://w [employer]/Docu ments/Xpert%20Xpres s%20SARS%20CoV-2/Fa ct%20Sheets/302-390 2%87NSEV-SWE-1%20HE ALTHCARE%20PROVIDER S%20FACT%20SHEET.pd f Fact Sheet for Healthcare Patients:https://ww [employer]/Docum ents/Xpert%20Xpress %20SARS%20Cov-2/Fac t%20Sheets/302-3801 %77FACQ-BFQ-9%20PAT IENT%20FACT%20SHEET .pdf Lab Interpretation Normal (test code = 90413-9) [facility]RSV [id number] 15:40:09 Test Item Value Reference Range Interpretation Comments SARS-COV2/RT-PCR Negative Negative The SARS-Co V-2 target (test code = nucleic acids a re not ) detected in thi s specimen. Negat leonardo results do not preclude SARS-CoV-2 infe ction and should not be u sed as the sole basis for patient management deci sions. Negative result s must be combined with c linical observations, p atient history, and epidemiological information. A false negative result may occur if a specimen i s improperly joseph ected, transported or handled. This SARS CoV-2 test is a rapid, real-lavern e RT-PCR test intended f or the qualitative det ection of nucleic acid fr om SARS-CoV-2 in a nasopharyngeal swab specimen [facility] from individuals emperatriz pected of COVID-[address] [facility] ider. INFLUENZA A RT-PCR Negative Negative The Flu A target nucleic (test code = acids are not d etected in 19100811) this specimen. INFLUENZA B RT-PCR Negative Negative The Flu B target nucleic (test code = acids are not d etected in 19100812) this specimen. RSV RT-PCR (test Negative Negative The RSV tar get nucleic code = 4527828) acids are no t detected in this specimen. The presence of SARS-CoV-2/FLU/RSV viral nucleic acids cannot rule out co- infections or disease caused by other viral or bacterial pathogens. As with any molecular test, mutations within the target regions of the Xpert Xpress SARS-CoV-2/Flu/RSV test could affect primer and/or probe binding resulting in failure to detect the presence of virus or the virus being detected less predictably. False negative results may occur if the virus is present at levels below the analytical limit of detection in thisspecimen.This Xpert Xpress SARS-CoV-2/Flu/RSV test is a rapid, real-time RT-PCR test intended for the qualitative detection of nucleic acid from Xpert Xpress SARS-CoV-2/Flu/RSV in a nasopharyngeal swabspecimen collected from individuals suspected of Xpert Xpress SARS-CoV-2/Flu/RSV by their healthcareprovider. Results from [facility] Xpert Xpress SARS-CoV-2/Flu/RSV test should be correlated with the clinical history, epidemiological data, and other data available to the clinician evaluating the patient. Viral nucleic acid may persist in vivo, independent of virus viability. Detection of analyte target(s)does not imply that the corresponding virus(es) are infectious or are the causative agents for clinical symptoms.This test has not been Food and Drug Administration (FDA) cleared or approved and has been authorized by FDA under an Emergency Use Authorization (EUA). This EUA will be effective until thedeclaration that circumstances exist justifying the authorization of the emergency use of in vitro diagnostic tests for detection and/or diagnosis of COVID-19 is terminated under Section 564(b)(2) of the Act or the EUA is revoked under Section 564(g) of the Act.Fact Sheet for Healthcare Providers:https ://www.[employer]/Documents/Xpert%20Xpress%20SARS%20CoV-2/Fact%20Sheets/302-390 2%37RJZW-PUZ-7%20HEALTHCARE%20PROVIDERS%20FACT%20SHEET.pdfFact Sheet for Healthcare Patients:https://www.[employer]/Docum ents/Xpert%20Xpress%20SARS%20Cov-2/Fact%20Sheets/302-3801%36GZLD-GAC-5%20PATIENT %20FACT%20SHEET.pdfB-TYPE NATRIURETIC FACTOR (BNP)2022-06-26 14:06:23 Test Item Value Reference Range Interpretation Comments B-TYPE NATRIURETIC PEPTIDE (BEAKER) < pg/mL 0-100 (test code = 700) Sales And Operations Trainee ID - GIOVANNY BHIGH SENSITIVITY TROPONIN [id number] 13:51:07 Test Item Value Reference Range Interpretation Comments HIGH SENSITIVITY < pg/ml See_Comment [Automated message] TROPONIN I (test code = The system which 8970516) generated this result transmitted ref erence range: <=35. Th e reference range was not used to interpr et this result as normal/abnormal . Sales And Operations Trainee ID - GIOVANNY BThe SHELL MAKER LOCKSTITCH STAT High Sensitivity Troponin-I results should be used in conjunction with other diagnostic information such as ECG, clinical observations and information, and patient symptoms to aid in the diagnosis of GA.COMPREHENSIVE METABOLIC [id number] 13:44:50 Test Item Value Reference Range Interpretation Comments TOTAL PROTEIN 8.8 gm/dL 6.0-8.3 H (BEAKER) (test code = 770) ALBUMIN (BEAKER) 3.8 g/dL 3.5-5.0 (test code = 1145) ALKALINE 167 U/L 40-150 H PHOSPHATASE (BEAKER) (test code = 346) BILIRUBIN TOTAL 0.4 mg/dL 0.2-1.2 (BEAKER) (test code = 377) SODIUM (BEAKER) 137 meq/L 136-145 (test code = 381) POTASSIUM (BEAKER) 3.8 meq/L 3.5-5.1 (test code = 379) CHLORIDE (BEAKER) 104 meq/L 98-107 (test code = 382) CO2 (BEAKER) (test 23 meq/L 22-29 code = 355) BLOOD UREA 7 mg/dL 7-21 NITROGEN (BEAKER) (test code = 354) CREATININE 0.68 mg/dL 0.57-1.25 (BEAKER) (test code = 358) GLUCOSE RANDOM 86 mg/dL 70-105 (BEAKER) (test code = 652) CALCIUM (BEAKER) 9.5 mg/dL 8.4-10.2 (test code = 697) AST (SGOT) 23 U/L 5-34 (BEAKER) (test code = 353) ALT (SGPT) 19 U/L 6-55 (BEAKER) (test code = 347) EGFR (BEAKER) 122 Interpretatio n of eGFR (test code = 1092) mL/min/1.[address] age Description sq m Result G1 Francine l or high >=90 G2 Mildly decreased 60-89 G3a Mildl y to moderately 45-5 9 G3b Moderately to s everely 30-44 G4 Severl y decreased 15-29 G5 Kidney failure <15Reported eGF R is based on the CKD-EPI 2020 equation that d oes not use a race coefficientEsti mated GFR is not as accur ate as Creatinine Em grayson in predicting glom erular filtration rate . Estimated GFR is not appl icable for dialysis patien ts Sales And Operations Trainee ID - GIOVANNY BUrinalysis w/Microscopic + Reflex to [id number] 13:44:21 Test Item Value Reference Range Interpretation Comments Color, UA (test code Light Yellow = 5778-6) Clarity, UA (test Hazy code = 5767-9) Specific [place], UA 1.010 1.001-1.035 (test code = 5811-5) pH, UA (test code = 7.0 5.0-8.0 5803-2) Protein, UA (test Negative Negative code = 36421-5) Glucose, UA (test Negative Negative code = 365) Ketones, UA (test Negative Negative code = 2514-8) Bilirubin, UA (test Negative Negative code = 10309-3) Blood, UA (test code Negative Negative = 15659-3) Nitrite, UA (test Negative Negative code = 5802-4) Leukocytes, UA (test Large Negative A code = 5799-2) Urobilinogen, UA 0.2 0.2-1.0 (test code = 34298-8) RBC, UA (test code = 7 See_Comment [Autom ated 76212-0) message] The system which generated this result transmit brook reference range : /HPF. The reference range was not used to interpret this result as normal/abnormal . WBC, UA (test code = 65 See_Comment [Autom ated 5821-4) message] The system which generated this result transmit brook reference range : /HPF. The reference range was not used to interpret this result as normal/abnormal . Mucus (test code = Rare 8247-9) Squam Epithel, UA 2 See_Comment [Automate d (test code = 43342-1) volodymyr e] The system which generated this result transmit brook reference range : /HPF. The reference range was not used to interpret this result as normal/abnormal . Specimen Source (test code = 2795) SUMEET (test code = SUMEET) Sales And Operations Trainee ID - [auto]Sales And Operations Trainee ID - tech Lab Interpretation Abnormal (test code = 84155-1) [facility] [id number] 13:44:21 Test Item Value Reference Range Interpretation Comments COLOR (BEAKER) (test code = 470) Light Yellow CLARITY (BEAKER) (test code = Hazy 469) SPECIFIC GRAVITY UA (BEAKER) 1.010 1.001-1.035 (test code = 468) PH UA (BEAKER) (test code = 467) 7.0 5.0-8.0 PROTEIN UA (BEAKER) (test code = Negative Negative 464) GLUCOSE UA (BEAKER) (test code = Negative Negative 365) KETONES UA (BEAKER) (test code = Negative Negative 371) BILIRUBIN UA (BEAKER) (test code Negative Negative = 462) BLOOD UA (BEAKER) (test code = Negative Negative 461) NITRITE UA (BEAKER) (test code = Negative Negative 465) LEUKOCYTE ESTERASE UA (BEAKER) Large Negative A (test code = 466) UROBILINOGEN UA (BEAKER) (test 0.2 0.2-1.0 code = 463) RBC UA (BEAKER) (test code = 7 /HPF 519) WBC UA (BEAKER) (test code = 65 /HPF 520) MUCUS (BEAKER) (test code = Rare 1574) SQUAMOUS EPITHELIAL (BEAKER) 2 /HPF (test code = 516) SOURCE(BEAKER) (test code = 2795) Sales And Operations Trainee ID - [auto]Sales And Operations Trainee ID - techPROTHROMBIN TIME/[id number] 13:34:27 Test Item Value Reference Range Interpretation Comments PROTIME (BEAKER) 15.2 seconds 11.9-14.2 H (test code = 759) INR (BEAKER) (test 1.22 See_Comment [Automat ed message] code = 370) The system [employer] generated this result transmitted ref erence range: <=5.90. The reference range was not used to int erpret this result as normal/abnormal . RECOMMENDED COUMADIN/WARFARIN INR THERAPY RANGESSTANDARD DOSE: 2.0 - 3.0 Includes: PROPHYLAXIS for venous thrombosis, systemic embolization; TREATMENT for venous thrombosis and/or pulmonary embolus.HIGH RISK: Target INR is 2.5-3.5 for patients with mechanical heart valves.LACTIC ACID, [id number] 13:33:05 Test Item Value Reference Range Interpretation Comments LACTATE BLOOD VENOUS 0.96 mmol/L 0.50-2.20 Specime n slightly (2) (BEAKER) (test hemolyzed code = 3900) Sales And Operations Trainee ID - GIOVANNY BCBC W/PLT COUNT & AUTO [id number] 13:27:53 Test Item Value Reference Range Interpretation Comments WHITE BLOOD CELL COUNT (BEAKER) 11.9 K/ L 3.5-10.5 H (test code = 775) RED BLOOD CELL COUNT (BEAKER) 4.32 M/ L 4.63-6.08 L (test code = 761) HEMOGLOBIN (BEAKER) (test code = 11.4 GM/DL 13.7-17.5 L 410) HEMATOCRIT (BEAKER) (test code = 35.9 % 40.1-51.0 L 411) MEAN CORPUSCULAR VOLUME (BEAKER) 83 fL 79-92 (test code = 753) MEAN CORPUSCULAR HEMOGLOBIN 26.4 pg 25.7-32.2 (BEAKER) (test code = 751) MEAN CORPUSCULAR HEMOGLOBIN CONC 31.8 GM/DL 32.3-36.5 L (BEAKER) (test code = 752) RED CELL DISTRIBUTION WIDTH 14.1 % 11.6-14.4 (BEAKER) (test code = 412) PLATELET COUNT (BEAKER) (test 650 K/CU MM 150-450 H code = 756) MEAN PLATELET VOLUME (BEAKER) 8.3 fL 9.4-12.4 L (test code = 754) NUCLEATED RED BLOOD CELLS 0 /100 WBC 0-0 (BEAKER) (test code = 413) NEUTROPHILS RELATIVE PERCENT 79 % (BEAKER) (test code = 429) LYMPHOCYTES RELATIVE PERCENT 13 % (BEAKER) (test code = 430) MONOCYTES RELATIVE PERCENT 7 % (BEAKER) (test code = 431) EOSINOPHILS RELATIVE PERCENT 1 % (BEAKER) (test code = 432) BASOPHILS RELATIVE PERCENT 0 % (BEAKER) (test code = 437) NEUTROPHILS ABSOLUTE COUNT 9.35 K/ L 1.78-5.38 H (BEAKER) (test code = 670) LYMPHOCYTES ABSOLUTE COUNT 1.56 K/ L 1.32-3.57 (BEAKER) (test code = 414) MONOCYTES ABSOLUTE COUNT (BEAKER) 0.77 K/ L 0.30-0.82 (test code = 415) EOSINOPHILS ABSOLUTE COUNT 0.15 K/ L 0.04-0.54 (BEAKER) (test code = 416) BASOPHILS ABSOLUTE COUNT (BEAKER) 0.03 K/ L 0.01-0.08 (test code = 417) IMMATURE GRANULOCYTES-RELATIVE 0.30 % 0.00-1.00 PERCENT (BEAKER) (test code = 2801) RAD, CHEST, 1 VIEW, NON [id number] 13:07:00Reason for exam:->Shortness of breathShould this be performed at the bedside?->Yes [facility] 1985 Sex: MFINAL REPORT RAD, CHEST, 1 VIEW, NON DEPT CLINICAL HISTORY: Shortness of breath TECHNIQUE: Single view of the chest. COMPARISON: None IMPRESSION:Innumerable pulmonary nodules concerning for metastatic disease. Correlation CT chest with IV contrast recommended, if not previously characterized. Cardiomediastinal silhouette is magnified by technique. No pneumothorax. Possible small left pleural effusion versus atelectasis or pleural thickening. No large pleural effusion. Posterior spinal fixation hardware noted at the thoracolumbar junction. No destructive osseous lesion identified. Critical findings were relayed to MAURIZIO MATHEW on 06/26/2022 1:05 PM. Signed: Darrius Richardson Verified Date/Time: 06/26/2022 13:07:00 ECG/EKG [id number] 12:34:29 Test Item Value Reference Range Interpretation Comments SUMEET (test code = SUMEET) Maurizio Mathew MD 06/26/2022 1:59 PMECG/EKG Interpretation Date/Time: 06/26/2022 12:34 PMPerformed by: Maurizio Mathew MDAuthorized by: Maurizio Mathew MD The ECG was interpreted by ED physician. This ECG was not compared with previous ECG(s).The ECG is interpreted as sinus tachycardia. Heart rate is 105 BPM.Conduction: conduction normal. ST segments normal. T waves abnormal. Q-waves are present in lead(s) III and aVF. Clinical Impression: abnormal ECGECG reviewed and does not meet STEMI criteria. Lab Interpretation Abnormal (test code = 99841-0) [facility] [id number] 12:34:29 Test Item Value Reference Range Interpretation Comments SUMEET (test code = SUMEET) Maurizio Mathew MD 06/26/2022 1:59 PMECG/EKG Interpretation Date/Time: 06/26/2022 12:34 PMPerformed by: Maurizio Mathew MDAuthorized by: Maurizio Mathew MD The ECG was interpreted by ED physician. This ECG was not compared with previous ECG(s).The ECG is interpreted as sinus tachycardia. Heart rate is 105 BPM.Conduction: conduction normal. ST segments normal. T waves abnormal. Q-waves are present in lead(s) III and aVF. Clinical Impression: abnormal ECGECG reviewed and does not meet STEMI criteria. Lab Interpretation Abnormal (test code = 30819-4) [facility] [id number] 12:34:29 Test Item Value Reference Range Interpretation Comments SUMEET (test code = SUMEET) Maurizio Mathew MD 06/26/2022 1:59 PMECG/EKG Interpretation Date/Time: 06/26/2022 12:34 PMPerformed by: Maurizio Mathew MDAuthorized by: Maurizio Mathew MD The ECG was interpreted by ED physician. This ECG was not compared with previous ECG(s).The ECG is interpreted as sinus tachycardia. Heart rate is 105 BPM.Conduction: conduction normal. ST segments normal. T waves abnormal. Q-waves are present in lead(s) III and aVF. Clinical Impression: abnormal ECGECG reviewed and does not meet STEMI criteria. Lab Interpretation Abnormal (test code = 99501-5) [facility] (NA, K, CL, CO2, GLUCOSE, BUN, CREATININE, CA)2022-06-13 12:39:24 Test Item Value Reference Range Interpretation Comments NA (test code = 138 mmol/L 135-145 4501650726) K (test code = 3.8 mmol/L 3.5-5.0 8819287368) CL (test code = 106 mmol/L 98-108 8350542594) CO2 TOTAL (test code = 24 mmol/L 23-31 0635240610) AGAP (test code = 2-16 5236688375) BUN (test code = 3 mg/dL 7-23 L 4009420379) GLUCOSE (test code = 114 mg/dL 70-110 H 9034906523) CREATININE (test code = 0.50 mg/dL 0.60-1.25 L 8973803803) CALCIUM (test code = 8.8 mg/dL 8.6-10.6 4465018305) eGFR (test code = mL/min/1.73m2 0199743375) SUMEET (test code = SUMEET) Association of [...] tests). Lab Interpretation Abnormal (test code = 45318-5) [facility] WITH [id number] 10:36:11 Test Item Value Reference Range Interpretation Comments WBC (test code = See_Comment H [Automated 3190-2) message] The sy stem which generated this result transmitted reference range : 4.20 - 10.70 10*3/?L. The reference range was not used to interpret this result as normal/abnormal . RBC (test code = See_Comment L [Automated 359-8) message] The sy stem which generated this result transmitted reference range : 4.26 - 5.52 10*6/?L. The reference range was not used to interpret this result as normal/abnormal . HGB (test code = 10.4 g/dL 12.2-16.4 L 718-7) HCT (test code = 33.1 % 38.4-49.3 L 4544-3) MCV (test code = 85.1 fL 81.7-95.6 787-2) MCH (test code = 26.7 pg 26.1-32.7 785-6) MCHC (test code = 31.4 g/dL 31.2-35.0 786-4) RDW-SD (test code = 44.1 fL 38.5-51.6 65275-4) RDW-CV (test code = 14.1 % 12.1-15.4 788-0) PLT (test code = See_Comment H [Automated 777-3) message] The sy stem which generated this result transmitted reference range : 150 - 328 10*3/ ?L. The reference r khadijah was not used to interpret this result as normal/abnormal . MPV (test code = 8.6 fL 9.8-13.0 L 16395-1) NRBC/100 WBC (test See_Comment [Automat ed code = 1121092222) message] The system which generated this result transmitted reference range : 0.0 - 10.0 /100 WBCs. The refer ence range was not u sed to interpret th is result as normal/abnormal . NRBC x10^3 (test code See_Comment [Auto mated = 3518919910) message] The s ystem which generated this result transmitted reference range : 10*3/?L. The reference range was not used to interpret this result as normal/abnormal . GRAN MAT (NEUT) % 75.9 % (test code = 770-8) IMM GRAN % (test code 0.40 % = 0959553658) LYMPH % (test code = 14.9 % 736-9) MONO % (test code = 7.1 % 5905-5) EOS % (test code = 1.4 % 713-8) BASO % (test code = 0.3 % 706-2) GRAN MAT x10^3(ANC) 8.97 10*3/uL 1.99-6.95 H (test code = 7365477755) IMM GRAN x10^3 (test 0.05 10*3/uL 0.00-0.06 code = 8435553259) LYMPH x10^3 (test code 1.76 10*3/uL 1.09-3.23 = 731-0) MONO x10^3 (test code 0.84 10*3/uL 0.36-1.02 = 742-7) EOS x10^3 (test code = 0.16 10*3/uL 0.06-0.53 711-2) BASO x10^3 (test code 0.03 10*3/uL 0.01-0.09 = 704-7) Lab Interpretation Abnormal (test code = 21913-5) [facility] (NA, K, CL, CO2, GLUCOSE, BUN, CREATININE, CA)2022-06-12 11:51:51 Test Item Value Reference Range Interpretation Comments NA (test code = 137 mmol/L 135-145 7698650009) K (test code = 3.7 mmol/L 3.5-5.0 9972266488) CL (test code = 106 mmol/L 98-108 5342559135) CO2 TOTAL (test code = 26 mmol/L 23-31 2082064916) AGAP (test code = 2-16 6780864091) BUN (test code = 8 mg/dL 7-23 8374586827) GLUCOSE (test code = 111 mg/dL 70-110 H 8730282319) CREATININE (test code = 0.60 mg/dL 0.60-1.25 6355893973) CALCIUM (test code = 8.6 mg/dL 8.6-10.6 0572342759) eGFR (test code = mL/min/1.73m2 9803530274) SUMEET (test code = SUMEET) Association of [...] tests). Lab Interpretation Abnormal (test code = 33606-8) [facility] WITH [id number] 10:58:09 Test Item Value Reference Range Interpretation Comments [...] as normal/abnormal . HGB (test code = 10.9 g/dL 12.2-16.4 L 718-7) HCT (test code = 34.4 % 38.4-49.3 L 4544-3) MCV (test code = 85.8 fL 81.7-95.6 787-2) MCH (test code = 27.2 pg 26.1-32.7 785-6) MCHC (test code = 31.7 g/dL 31.2-35.0 786-4) RDW-SD (test code = 44.3 fL 38.5-51.6 60268-2) RDW-CV (test code = 14.1 % 12.1-15.4 788-0) PLT (test code = See_Comment H [Automated 777-3) message] The sy stem which generated this result transmitted reference range : 150 - 328 10*3/ ?L. The reference r khadijah was not used to interpret this result as normal/abnormal . MPV (test code = 8.5 fL 9.8-13.0 L 17579-6) NRBC/100 WBC (test See_Comment [Automat ed code = 6372440003) message] The system which generated this result transmitted reference range : 0.0 - 10.0 /100 WBCs. The refer ence range was not u sed to interpret th is result as normal/abnormal . NRBC x10^3 (test code See_Comment [Auto mated = 3266182685) message] The s ystem which generated this result transmitted reference range : 10*3/?L. The reference range was not used to interpret this result as normal/abnormal . GRAN MAT (NEUT) % 71.9 % (test code = 770-8) IMM GRAN % (test code 0.20 % = 9663022543) LYMPH % (test code = 17.7 % 736-9) MONO % (test code = 8.7 % 5905-5) EOS % (test code = 1.3 % 713-8) BASO % (test code = 0.2 % 706-2) GRAN MAT x10^3(ANC) 8.93 10*3/uL 1.99-6.95 H (test code = 3438831790) IMM GRAN x10^3 (test 0.03 10*3/uL 0.00-0.06 code = 6764102828) LYMPH x10^3 (test code 2.20 10*3/uL 1.09-3.23 = 731-0) MONO x10^3 (test code 1.08 10*3/uL 0.36-1.02 H = 742-7) EOS x10^3 (test code = 0.16 10*3/uL 0.06-0.53 711-2) BASO x10^3 (test code 0.03 10*3/uL 0.01-0.09 = 704-7) Lab Interpretation Abnormal (test code = 36152-7) [facility] METABOLIC PANEL (NA, K, CL, CO2, GLUCOSE, BUN, CREATININE, CA)2022-06-12 05:04:00 Test Item Value Reference Range Interpretation Comments NA (test code = 134 mmol/L 135-145 L 5680597304) K (test code = 4.3 mmol/L 3.5-5.0 3352979764) CL (test code = 101 mmol/L 98-108 0605668286) CO2 TOTAL (test code = 23 mmol/L 23-31 1875778396) AGAP (test code = 2-16 4954212135) BUN (test code = 12 mg/dL 7-23 2628427000) GLUCOSE (test code = 118 mg/dL 70-110 H 5685654431) CREATININE (test code = 0.67 mg/dL 0.60-1.25 7597819777) CALCIUM (test code = 9.5 mg/dL 8.6-10.6 3658006263) eGFR (test code = mL/min/1.73m2 8303742493) SUMEET (test code = SUMEET) Association of [...] tests). Lab Interpretation Abnormal (test code = 92555-1) [facility] WITH [id number] 04:49:21 Test Item Value Reference Range Interpretation Comments WBC (test code = See_Comment H [Automated 5990-2) message] The system which generated this result transmit brook reference range : 4.20 - 10.70 10*3/?L. The reference range was not used to interpret this result as normal/abnormal . RBC (test code = See_Comment [Automated 789-8) message] The system which generated this result transmit brook reference range : 4.26 - 5.52 10*6/?L. The reference range was not used to interpret this result as normal/abnormal . HGB (test code = 12.0 g/dL 12.2-16.4 L 718-7) HCT (test code = 36.9 % 38.4-49.3 L 4544-3) MCV (test code = 84.1 fL 81.7-95.6 787-2) MCH (test code = 27.3 pg 26.1-32.7 785-6) MCHC (test code = 32.5 g/dL 31.2-35.0 786-4) RDW-SD (test code = 43.4 fL 38.5-51.6 21025-6) RDW-CV (test code = 14.0 % 12.1-15.4 788-0) PLT (test code = See_Comment H [Automated 777-3) message] The system which generated this result transmit brook reference range : 150 - 328 10*3/ ?L. The reference range was not u sed to interpret th is result as normal/abnormal . MPV (test code = 8.3 fL 9.8-13.0 L 21280-8) NRBC/100 WBC (test See_Comment [Automat ed code = 4429117018) message] The system which generated this result transmit brook reference range : 0.0 - 10.0 /100 WBCs. The reference range was not used to interpret this result as normal/abnormal . NRBC x10^3 (test code See_Comment [Auto mated = 5575053761) message] The system which generated this result transmit brook reference range : 10*3/?L. The reference range was not used to interpret this result as normal/abnormal . GRAN MAT (NEUT) % 78.4 % (test code = 770-8) IMM GRAN % (test code 0.60 % = 3663740385) LYMPH % (test code = 12.8 % 736-9) MONO % (test code = 6.8 % 5905-5) EOS % (test code = 1.0 % 713-8) BASO % (test code = 0.4 % 706-2) GRAN MAT x10^3(ANC) 12.66 10*3/uL 1.99-6.95 H (test code = 3907299379) IMM GRAN x10^3 (test 0.10 10*3/uL 0.00-0.06 H code = 3583161272) LYMPH x10^3 (test code 2.07 10*3/uL 1.09-3.23 = 731-0) MONO x10^3 (test code 1.10 10*3/uL 0.36-1.02 H = 742-7) EOS x10^3 (test code = 0.16 10*3/uL 0.06-0.53 711-2) BASO x10^3 (test code 0.06 10*3/uL 0.01-0.09 = 704-7) Lab Interpretation Abnormal (test code = 56673-5) [facility] METABOLIC PANEL (NA, K, CL, CO2, GLUCOSE, BUN, CREATININE, CA)2022-04-21 11:08:33 Test Item Value Reference Range Interpretation Comments NA (test code = 142 mmol/L 135-145 1226162591) K (test code = 3.5 mmol/L 3.5-5 0490780386) CL (test code = 106 mmol/L 98-108 8583613756) CO2 TOTAL (test code = 27 mmol/L 23-31 5709487990) AGAP (test code = 2-16 8909342176) BUN (test code = 7 mg/dL 7-23 0842622284) GLUCOSE (test code = 120 mg/dL 70-110 H 5173721681) CREATININE (test code = 0.52 mg/dL 0.6-1.25 L 6528265979) CALCIUM (test code = 8.6 mg/dL 8.6-10.6 6274503687) eGFR (test code = mL/min/1.73m2 1111917558) SUMEET (test code = SUMEET) Association of [...] tests). Lab Interpretation Abnormal (test code = 78892-9) [facility] WITH [id number] 10:21:47 Test Item Value Reference Range Interpretation Comments WBC (test code = See_Comment H [Automated 9990-2) message] The sy stem which generated this result transmitted reference range : 4.20 - 10.70 10*3/?L. The reference range was not used to interpret this result as normal/abnormal . RBC (test code = See_Comment L [Automated 019-8) message] The sy stem which generated this [...] RDW-SD (test code = 47.8 fL 38.5-51.6 46741-5) RDW-CV (test code = 14.9 % 12.1-15.4 788-0) PLT (test code = See_Comment H [Automated 777-3) message] The sy stem which generated this result transmitted reference range : 150 - 328 10*3/ ?L. The reference r khadijah was not used to interpret this result as normal/abnormal . MPV (test code = 8.7 fL 9.8-13 L 61907-5) NRBC/100 WBC (test See_Comment [Automat ed code = 0368158589) message] The system which generated this result transmitted reference range : 0.0 - 10.0 /100 WBCs. The refer ence range was not u sed to interpret th is result as normal/abnormal . NRBC x10^3 (test code See_Comment [Auto mated = 8798149653) message] The s ystem which generated this result transmitted reference range : 10*3/?L. The reference range was not used to interpret this result as normal/abnormal . GRAN MAT (NEUT) % 68.6 % (test code = 770-8) IMM GRAN % (test code 0.50 % = 7311020076) LYMPH % (test code = 17.6 % 736-9) MONO % (test code = 11.3 % 5905-5) EOS % (test code = 1.8 % 713-8) BASO % (test code = 0.2 % 706-2) GRAN MAT x10^3(ANC) 8.05 10*3/uL 1.99-6.95 H (test code = 8372221303) IMM GRAN x10^3 (test 0.06 10*3/uL 0-0.06 code = 1100673714) LYMPH x10^3 (test code 2.06 10*3/uL 1.09-3.23 = 731-0) MONO x10^3 (test code 1.32 10*3/uL 0.36-1.02 H = 742-7) EOS x10^3 (test code = 0.21 10*3/uL 0.06-0.53 711-2) BASO x10^3 (test code 0.01-0.09 = 704-7) Lab Interpretation Abnormal (test code = 14195-4) [facility] GLUCOSE (AUTOMATED)2022-04-20 12:58:10 Test Item Value Reference Range Interpretation Comments POCT GLU (test code = 6117160331) 111 mg/dL 70-110 H Lab Interpretation (test code = Abnormal 33967-4) [facility] GLUCOSE (AUTOMATED)2022-04-20 09:45:13 Test Item Value Reference Range Interpretation Comments POCT GLU (test code = 2680198492) 91 mg/dL 70-110 Lab Interpretation (test code = Normal 08737-1) [facility] GLUCOSE (AUTOMATED)2022-04-20 01:57:06 Test Item Value Reference Range Interpretation Comments POCT GLU (test code = 3540270122) 139 mg/dL 70-110 H Lab Interpretation (test code = Abnormal 81115-0) [facility] [id number] 18:58:04 Test Item Value Reference Range Interpretation Comments LACTIC ACID (test code = 1.19 mmol/L 0.5-2.2 9992834345) Lab Interpretation (test code = Normal 15727-1) [facility] [id number] 15:21:49 Test Item Value Reference Range Interpretation Comments LACTIC ACID (test code = 2.43 mmol/L 0.5-2.2 H 9551626569) Lab Interpretation (test code = Abnormal 03116-7) [id number]:13:33 Test Item Value Reference Range Interpretation Comments Blood Culture Workup No organisms (test code = 600-7) isolated Lab Interpretation (test Normal code = 49247-5) [facility] [id number] 23:01:39 Test Item Value Reference Range Interpretation Comments Blood Culture-Aerobic No organisms No growth Previo us (test code = 69314-4) isolated prelim inary verified result was Culture [...] Culture-Anaerobic isolated preliminar y (test code = 34668-8) verifi ed result was Culture In Progress [...] CDT Lab Interpretation Normal (test code = 11513-5) [facility]. METABOLIC PANEL ([id number] 11:10:10 Test Item Value Reference Range Interpretation Comments NA (test code = 137 mmol/L 135-145 [id number]) K (test code = 4.0 mmol/L 3.5-5 2549216174) CL (test code = 107 mmol/L 98-108 6549609830) CO2 TOTAL (test code = 27 mmol/L 23-31 6720977903) AGAP (test code = 2-16 9901335956) BUN (test code = 8 mg/dL 7-23 6485738781) GLUCOSE (test code = 102 mg/dL 70-110 6799434263) CREATININE (test code = 0.58 mg/dL 0.6-1.25 L 6463465636) TOTAL BILI (test code = 0.2 mg/dL 0.1-1.4 8781601890) CALCIUM (test code = 8.4 mg/dL 8.6-10.6 L 1689330276) T PROTEIN (test code = 7.7 g/dL 6.3-8.2 [id number]) ALBUMIN (test code = 4.0 g/dL 3.5-5 4675829759) ALK PHOS (test code = 137 U/L 34-122 H 8848814080) ALTv (test code = 17 U/L 5-50 1742-6) AST(SGOT) (test code = 22 U/L 13-40 3402604453) eGFR (test code = mL/min/1.73m2 7421890185) SUMEET (test code = SUMEET) Association of [...] tests). Lab Interpretation Abnormal (test code = 82809-0) [facility] WITH [id number] 10:41:06 Test Item Value Reference Range Interpretation Comments WBC (test code = See_Comment [Automated 2650-2) message] The sy stem which generated this result transmitted reference range : 4.20 - 10.70 10*3/?L. The reference range was not used to interpret this result as normal/abnormal . RBC (test code = See_Comment [Automated 052-8) message] The sy stem which generated this result transmitted reference range : 4.26 - 5.52 10*6/?L. The reference range was not used to interpret this result as normal/abnormal . HGB (test code = 12.9 g/dL 12.2-16.4 798-7) HCT (test code = 38.8 % 38.4-49.3 4544-3) MCV (test code = 84.7 fL 81.7-95.6 787-2) MCH (test code = 28.2 pg 26.1-32.7 785-6) MCHC (test code = 33.2 g/dL 31.2-35 786-4) RDW-SD (test code = 44.7 fL 38.5-51.6 05267-1) RDW-CV (test code = 14.5 % 12.1-15.4 788-0) PLT (test code = See_Comment H [Automated 777-3) message] The sy stem which generated this result transmitted reference range : 150 - 328 10*3/ ?L. The reference r khadijah was not used to interpret this result as normal/abnormal . MPV (test code = 8.7 fL 9.8-13 L 04831-6) NRBC/100 WBC (test See_Comment [Automat ed code = 5894207356) message] The system which generated this result transmitted reference range : 0.0 - 10.0 /100 WBCs. The refer ence range was not u sed to interpret th is result as normal/abnormal . NRBC x10^3 (test code See_Comment [Auto mated = 6336729370) message] The s ystem which generated this result transmitted reference range : 10*3/?L. The reference range was not used to interpret this result as normal/abnormal . GRAN MAT (NEUT) % 56.8 % (test code = 770-8) IMM GRAN % (test code 0.40 % = 9992653891) LYMPH % (test code = 33.5 % 736-9) MONO % (test code = 6.2 % 5905-5) EOS % (test code = 2.8 % 713-8) BASO % (test code = 0.3 % 706-2) GRAN MAT x10^3(ANC) 5.06 10*3/uL 1.99-6.95 (test code = 0956545236) IMM GRAN x10^3 (test 0.04 10*3/uL 0-0.06 code = 8753309276) LYMPH x10^3 (test code 2.99 10*3/uL 1.09-3.23 = 731-0) MONO x10^3 (test code 0.55 10*3/uL 0.36-1.02 = 742-7) EOS x10^3 (test code = 0.25 10*3/uL 0.06-0.53 711-2) BASO x10^3 (test code 0.03 10*3/uL 0.01-0.09 = 704-7) Lab Interpretation Abnormal (test code = 57113-6) [facility] (ALB,T.PRO,BILI T,BU/BC,ALT,AST,ALK PHOS)2022-03-15 11:20:14 Test Item Value Reference Range Interpretation Comments TOTAL BILI (test code = 6280819203) 0.3 mg/dL 0.1-1.1 BILI UNCON (test code = 4351843344) 0.1 mg/dL 0.1-1.1 BILI CONJ (test code = 2762966368) 0.0 mg/dL 0-0.3 T PROTEIN (test code = 3092979543) 7.9 g/dL 6.3-8.2 ALBUMIN (test code = 8423008413) 4.1 g/dL 3.5-5 ALK PHOS (test code = 1628161115) 149 U/L 34-122 H ALTv (test code = 1742-6) 19 U/L 5-50 AST(SGOT) (test code = 8923888810) 31 U/L 13-40 Lab Interpretation (test code = Abnormal 99752-4) [facility] [id number] 19:20:42 Test Item Value Reference Interpretation Comments Range C. trachomatis NOT DETECTED RNA, TMA (test code = 3657748) N. gonorrhoeae NOT DETECTED REFERENCE RA NGE: NOT RNA, TMA (test DETECTED Meth odology: code = 2859721) Transcriptio n Mediated Amplification ( TMA)to detect RNA. The analytical perf ormance characteristics of thisassay, when used to test SurePat h(TM) specimens haveb een determined by [facility]. Th e modificationsha ve not been cleared or approved by the FDA. This assayhas b een validated pursu ant to the CLIA regula tions andis used for clinical purpos es. For additional information, pl ease refer [email or web address] [place].Futon. [facility]/faq /YOC886(This li nk is being provided for informational/e ducatio nal purposes on ly.) SUMEET (test code = Performing Lab SUMEET) *[facility] [address] [place] [address] Phoebe Dumont MD [facility] Metabolic [id number] 07:12:27 Test Item Value Reference Range Interpretation Comments Sodium (test code = 137 meq/L 563-797 9330-2) Potassium (test code = 3.7 meq/L 3.5-5.1 2823-3) Chloride (test code = 105 meq/L 98-107 2075-0) CO2 (test code = 22 meq/L 22-29 2028-9) BUN (test code = 6 mg/dL 7-21 L 3094-0) Creatinine (test code 0.65 mg/dL 0.57-1.25 = 2160-0) Glucose (test code = 102 mg/dL 70-105 2345-7) Calcium (test code = 9.1 mg/dL 8.4-10.2 94080-7) EGFR (test code = 139 mL/min/1.73 [place] [address]-1) NOT ACCURATE CREATININE CLEARANCE IN PREDICTING GLOMERULAR FILTRATION RATE . ESTIMATED GFR I S NOT APPLICABLE FOR DIALYSIS PATIENTS. SUMEET (test code = SUMEET) Sales And Operations Trainee ID - YARED Alec Lab Interpretation Abnormal (test code = 20716-0) [facility] METABOLIC [id number] 07:12:27 Test Item Value Reference Range Interpretation [...] S NOT APPLICABLE FOR DIALYSIS PATIEN TS. Sales And Operations Trainee ID - YARED GCBC with platelet count + automated [id number] 05:35:22 Test Item Value Reference Range Interpretation Comments WBC (test code = 6690-2) 9.0 See_Comment [A utomated message] The system [employer] generated this result transmitted ref erence range: 3.5 - 10 .5 K/L. The refe rence range was not u sed to interpret this result as normal/abnor mal. RBC (test code = 789-8) 4.53 See_Comment L [Au tomated message] The system [employer] generated this result transmitted ref erence range: 4.63 - 6 .08 M/L. The refe rence range was not u sed to interpret this result as normal/abnor mal. MCHC (test code = 786-4) 32.7 See_Comment L [A utomated message] The system [employer] generated this result transmitted ref erence range: [...] See_Comment [Aut omated message] 777-3) The system [employer] generated this result transmitted ref erence range: 150 - 45 0 K/CU MM. The referen ce range was not u sed to interpret this result as normal/abnor mal. MPV (test code = 8.6 fL 9.4-12.4 L 80464-7) nRBC (test code = 413) 0 See_Comment [Aut omated message] The system [employer] generated this result transmitted ref erence range: [...] H [Aut omated message] 670) The system [employer] generated this result transmitted ref erence range: 1.78 - 5 .38 K/L. The refe rence range was not u sed to interpret this result as normal/abnor mal. # Lymphs (test code = 1.84 See_Comment [Auto mated message] 414) The system [employer] generated this result transmitted ref erence range: 1.32 - 3 .57 K/L. The refe rence range was not u sed to interpret this result as normal/abnor mal. # Monos (test code = 0.64 See_Comment [Autom ated message] 415) The system [employer] generated this result transmitted ref erence range: 0.30 - 0 .82 K/L. The refe rence range was not u sed to interpret this result as normal/abnor mal. # Eos (test code = 416) 0.21 See_Comment [Au tomated message] The system [employer] generated this result transmitted ref erence range: 0.04 - 0 .54 K/L. The refe rence range was not u sed to interpret this result as normal/abnor mal. # Baso (test code = 417) 0.03 See_Comment [A utomated message] The system [employer] generated this result transmitted ref erence range: 0.01 - 0 .08 K/L. The refe rence range was not u sed to interpret this result as normal/abnor mal. Immature 0 % 0-1 Granulocytes-Relative (test code = 2801) Lab Interpretation (test Abnormal code = 19224-6) [facility] W/PLT COUNT & AUTO [id number] 05:35:22 Test Item Value Reference Range Interpretation [...] (BEAKER) (test code = 2801) BASIC METABOLIC [id number] 06:57:58 Test Item Value Reference Range Interpretation [...] S NOT APPLICABLE FOR DIALYSIS PATIEN TS. Sales And Operations Trainee ID - PIAYA LCBC W/PLT COUNT & AUTO [id number] 05:40:05 Test Item Value Reference Range Interpretation [...] 0-1 PERCENT (BEAKER) (test code = 2801) [id number] 14:40:12 Test Item Value Reference Range Interpretation Comments RPR (test code = 31966-4) Nonreactive Nonreactive Lab Interpretation (test code = Normal 74786-3) [facility]12 Test Item Value Reference Range Interpretation Comments RPR SCREEN (BEAKER) (test code = Nonreactive Nonreactive 420) Lactate dehydrogenase (LDH)2021-04-18 12:27:24 Test Item Value Reference Range Interpretation Comments LDH (test code = 2532-0) 219 U/L 125-220 SUMEET (test code = SUMEET) Sales And Operations Trainee ID - CAROLINA F Lab Interpretation (test Normal code = 77703-9) [facility]LDH)2021-04-18 12:27:24 Test Item Value Reference Range Interpretation Comments LACTATE DEHYDROGENASE (BEAKER) (test 219 U/L 125-220 code = 635) Sales And Operations Trainee KARUNA HALEY FAlpha fetoprotein (AFP), tumor [id number] 11:20:09 Test Item Value Reference Range Interpretation Comments Alpha-Fetoprotein <2.0 See_Comment [Automate d (test code = 1834-1) message ] The system which generated this result transmit brook reference range : <10.0 ng/mL. Th e reference range was not used to interpret this result as normal/abnormal . SUMEET (test code = SUMEET) Sales And Operations Trainee ID Joe Upton Lab Interpretation Normal (test code = 96427-1) [facility]AFP), TUMOR [id number] 11:20:09 Test Item Value Reference Range Interpretation Comments ALPHA-FETOPROTEIN (BEAKER) (test code < ng/mL <10.0 = 1094) Sales And Operations Trainee KARUNA HALEY FhCG, quantitative, [id number] 09:46:47 Test Item Value Reference Range Interpretation Comments hCG Quant (test code 5 mIU/mL = 88382-5) SUMEET (test code = SUMEET) Non- Females: <10 mIU/mL Females: Gestation Age Reference Range(mIU/mL) 0.2-1 Week 5-50 1-2 Weeks 50-500 2-3 Weeks 100-5,000 3-4 Weeks 500-10,000 4-5 Weeks 1,000-50,000 5-6 Weeks 10,000-100,000 6-8 Weeks 15,000-200,000 2-3 Months 10,000-100,000 Sales And Operations Trainee KARUNA Upton [facility], QUANTITATIVE, [id number] 09:46:47 Test Item Value Reference Range Interpretation Comments GONADOTROPIN, CHORIONIC (HCG) QUANT 5 mIU/mL (BEAKER) (test code = 649) Non- Females: <10 mIU/mL Females: Gestation Age Reference Range(mIU/mL) 0.2-1 Week 5-50 1-2 Weeks 50-500 2-3 Weeks 100-5,000 3-4 Weeks 500-10,000 4-5 Weeks 1,000-50,000 5-6 Weeks 10,000-100,000 6-8 Weeks 15,000- 200,000 2-3 Months 10,000-100,000 Sales And Operations Trainee ID - TERA FComprehensive metabolic [id number] 08:04:37 Test Item Value Reference Range Interpretation Comments Protein, Total (test 7.2 See_Comment [Autom ated code = 2885-2) message] The system which generated this result transmitted reference range : 6.0 - 8.3 gm/dL . The reference range was not used to interpr et this result as normal/abnormal . Albumin (test code = 3.3 g/dL 3.5-5.0 L 78650-2) Alkaline Phosphatase 122 U/L 40-150 (test code = 6768-6) Total Bilirubin (test 0.8 mg/dL 0.2-1.2 code = 1975-2) Sodium (test code = 137 meq/L 550-386 4217-2) Potassium (test code 3.7 meq/L 3.5-5.1 = 2823-3) Chloride (test code = 108 meq/L 98-107 H 2075-0) CO2 (test code = 21 meq/L 22-29 L 2028-9) BUN (test code = 6 mg/dL 7-21 L 3094-0) Creatinine (test code 0.62 mg/dL 0.57-1.25 = 2160-0) Glucose (test code = 120 mg/dL 70-105 H 2345-7) Calcium (test code = 8.9 mg/dL 8.4-10.2 16451-3) AST (test code = 14 U/L 5-34 1920-8) ALT (test code = 13 U/L 6-55 1742-6) EGFR (test code = 147 mL/min/1.[place] [address]-5) NOT ACCURATE CREATININE CLEARANCE IN PREDICTING GLOMERULAR FILTRATION RATE . ESTIMATED GFR I S NOT APPLICABLE FOR DIALYSIS PATIENTS. SUMEET (test code = SUMEET) Sales And Operations Trainee ID - YARED WOODperator ID - TERA Upton Lab Interpretation Abnormal (test code = 00835-7) [facility] [id number] 08:04:37 Test Item Value Reference Range Interpretation [...] S NOT APPLICABLE FOR DIALYSIS PATIEN TS. Sales And Operations Trainee ID - YARED GOperator ID - TERA FManual [id number] 07:20:32 Test Item Value Reference Range Interpretation Comments % Neutros (test code = 89 % 281) % Lymphs (test code = 6 % 2816) % Monos (test code = 3 % 8) % Eos (test code = 2819) 2 [...] = 3438) SUMEET (test code = SUMEET) Sales And Operations Trainee ID - giovanny rosendoraUser comments: Slide comments: Lab Interpretation (test Abnormal code = 60877-9) [facility](CELLAVISION MANUAL DIFF)2021-04-18 07:20:32 Test Item Value [...] CONCENTRATION Adequate (CELLAVISION)(BEAKER) (test code = 3438) Sales And Operations Trainee ID - giovanny balsaraUser comments: Slide comments:CBC W/PLT COUNT & AUTO [id number] 07:20:30 Test Item Value Reference Range Interpretation [...] code = 413) HIV-1 Antigen with HIV-1/2 [id number] 06:43:00 Test Item Value Reference Range Interpretation Comments HIV-1 Antigen with HIV Nonreactive Nonreactive 1&2 Antibody (test code = 43957-6) SUMEET (test code = SUMEET) Sales And Operations Trainee ID - PIAYA L Lab Interpretation (test Normal code = 42810-7) [facility] ANTIGEN WITH HIV-1/2 [id number] 06:43:00 Test Item Value Reference Range Interpretation Comments HIV-1 ANTIGEN WITH HIV 1\\T\\2 Nonreactive Nonreactive ANTIBODY (2) (BEAKER) (test code = 2586) Sales And Operations Trainee ID - PIAYA LHepatitis panel, [id number] 06:42:59 Test Item Value Reference Range Interpretation Comments Hep A IgM (test code = Nonreactive Nonreactive 26816-5) Hep B C IgM (test code = Nonreactive Nonreactive 72303-9) Hepatitis C Ab (test Nonreactive Nonreactive code = 30943-0) Hepatitis B surface Nonreactive Nonreactive antigen (test code = 5195-3) SUMEET (test code = SUMEET) Sales And Operations Trainee ID - PIAYA L Lab Interpretation (test Normal code = 81923-6) [facility], [id number] 06:42:59 Test Item Value Reference Range Interpretation Comments HEPATITIS A IGM ANTIBODY (BEAKER) Nonreactive Nonreactive (test code = 498) HEPATITIS B CORE IGM ANTIBODY Nonreactive Nonreactive (BEAKER) (test code = 645) HEPATITIS C ANTIBODY (BEAKER) Nonreactive Nonreactive (test code = 367) HEPATITIS B SURFACE ANTIGEN (2) Nonreactive Nonreactive (BEAKER) (test code = 2585) Sales And Operations Trainee ID - PIAYA L
[2022-08-08] MEDS ORDERED: FENTANYL CITR 100 MCG/2 ML ONE (00:48)
[2022-08-08] MEDS ORDERED: NA CHLORIDE 0.9% 500 ML ONE (00:48)
[2022-08-08] MEDS ORDERED: ONDANSETRON 4 MG/2 ML VIAL ONE (00:48)
[2022-08-08] MEDS ORDERED: NA CHLORIDE 0.9% 3,000 ML ONE (00:48)
[2022-08-08 01:02] LABS: Absolute Lymphocytes (CBC) 1.3 K/uL (0.7-4.9); Hematocrit 29.9 % (39.6-49.0); Lymphocytes % 8.3 % (15.3-44.8); MCV 80.1 fL (80-100); MPV 6.3 fL (7.6-11.3); RBC Red Blood Cell Count 3.73 M/uL (4.33-5.43)
[2022-08-08 01:03] LABS: Protime INR 1.45
[2022-08-08 01:14] LABS: Albumin 2.8 g/dL (3.4-5.0); Bilirubin Direct 0.1 mg/dL (0-0.2); Bilirubin Total 0.3 mg/dL (0.2-1.0); Potassium 3.4 mmol/L (3.5-5.1); Troponin High Sensitivity 3.9 pg/mL (<58.9)
[2022-08-08 01:18] LABS: Urine Blood Negative (Negative); Urine Glucose Negative (Negative); Urine Protein Negative (Negative); Urine Specific Gravity 1.015 (1.005-1.030)
[2022-08-08 01:19] LABS: Renal Epithelial <5 /HPF (None Seen); Urine Bacteria <20 /HPF (<20); Urine Mucus 1+ /HPF (None Seen); Urine RBC None Seen /HPF (None Seen)
[2022-08-08 01:39] LABS: SARS-COV-2 RT PCR NEGATIVE (NEGATIVE)
[2022-08-08] MEDS ORDERED: VANCOMYCIN 1 GM/VIAL ONE (01:49)
[2022-08-08] MEDS ORDERED: CEFEPIME 2 GM VIAL ONE (01:49)
[2022-08-08] MEDS ORDERED: VANCOMYCIN 500 MG/VIAL ONE ×2 (01:49→01:51)
[2022-08-08] MEDS ORDERED: NA CHLORIDE 0.9% 250 ML ONE (01:50)
[2022-08-08] MEDS ORDERED: NA CHLORIDE 0.9% 100 ML ONE (01:50)
[2022-08-08] MEDS ORDERED: METRONIDAZOLE 500mg IVPB 500 MG/100 ML BAG IV ONE (03:38)
--- NOTE | 2022-08-08 04:14 | ER ---
Nurse's Notes [facility] Name: Aidan East Age: 37 yrs Sex: Male : 1985 Arrival Date: 08/08/2022 Time: 00:15 Bed 6 Private MD: Diagnosis: Fever, unspecified;Severe sepsis without septic shock;Cutaneous abscess of buttock-7CMX 5 CM DEEP ISCHIAL , BONY DESTRUCTION;Anemia in other chronic diseases classified elsewhere;Malignant (primary) neoplasm, unspecified-testicular metastatic, pulmonary involvment Presentation: 08/08 00:38 Coronavirus screen: At this time, the client does not indicate any symptoms associated as6 with coronavirus-19. Ebola Screen: No symptoms or risks identified at this time. Risk Assessment: Do you want to hurt yourself or someone else? Patient reports no desire to harm self or others. Onset of symptoms was August 05, 2022. 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 Initial Sepsis Screen: Does the patient meet any 2 criteria? RR > 20 per min. HR > 90 bpm. Yes Does the patient have a suspected source of infection? No. Patient's initial sepsis screen is negative. Historical: - Allergies: 01:18 No Known Allergies; as6 - PMHx: 01:18 paraplegic; testicular cancer; as6 - PSHx: 01:18 T12 surgery; Testicle removed; as6 - Immunization history:: Client reports having NOT received the Covid vaccine. Flu vaccine is not up to date. - Social history:: Smoking status: Patient denies any tobacco usage or history of. Screenin:20 [facility] ED Fall Risk Assessment (Adult) Score/Fall Risk Level 0 - 2 = Low Risk. Abuse as6 screen: Denies threats or abuse. Denies injuries from another. Nutritional screening: No deficits noted. Tuberculosis screening: No symptoms or risk factors identified. Assessment: 00:30 General: Appears uncomfortable, ill, Behavior is calm, cooperative, Reports chills for as6 fever for feeling ill for fatigue for. Pain: Complains of pain in right flank. Neuro: Level of Consciousness is awake, alert, obeys commands, Oriented to person, place, time, situation. Cardiovascular: Capillary refill < 3 seconds Patient's skin is warm and dry. Rhythm is sinus tachycardia. Respiratory: Respiratory effort is even, unlabored, Respiratory pattern is regular, symmetrical, tachypnea. : Reports pain in right flank(s), uses condom cath. Derm: Decubitus located on left sacrum approximately 2.6 cm to 7.5 cm is stage III has macerated edges bed has granulation present. Vital Signs: 00:37 BP 114 / 75; Pulse 151; Resp 25 S; Temp 98.2(O); Pulse Ox 94% on R/A; Weight 116.57 kg as6 (R); Height 5 ft. 1 in. (154.94 cm) (R); Pain 9/10; 01:02 BP 108 / 62; Pulse 137; Resp 18 S; Pulse Ox 95% on R/A; aa9 01:18 BP 98 / 50; Pulse 135; Resp 32 S; Pulse Ox 93% on R/A; as6 01:56 BP 98 / 55; Pulse 126; Resp 15 S; Temp 100.0(O); Pulse Ox 96% on R/A; as6 02:25 BP 108 / 69; Pulse 120; Resp 17 S; Pulse Ox 95% on R/A; Pain 8/10; as6 03:20 BP 101 / 55; Pulse 111; Resp 17 S; Temp 97.5(O); Pulse Ox 96% on R/A; as6 03:40 BP 102 / 52; Pulse 108; Resp 20 S; Pulse Ox 96% on R/A; as6 04:00 BP 106 / 58; Pulse 112; Resp 19 S; Pulse Ox 96% on R/A; aa9 04:58 BP 105 / 61; Pulse 109; Resp 22 S; Pulse Ox 97% on R/A; as6 00:37 Body Mass Index 48.56 (116.57 kg, 154.94 cm) as6 ED Course: 00:15 Patient arrived in ED. la1 00:18 Yobany Lord MD is Attending Physician. uyen 00:20 Yobany Muse PA is PHCP. cp 00:31 Elia Jack, LANCE is Primary Nurse. as6 00:38 Arm band placed on. as6 00:39 Triage completed. as6 00:47 COVID-19/FLU A+B Sent. kd3 01:05 Tejada cath inserted, using sterile technique, 16 Fr., by va, balloon inflated, to as6 gravity drainage, urine specimen collected. returned clear yellow urine. Patient tolerated well. 01:21 Placed in gown. Bed in low position. Call light in reach. Side rails up X2. Adult w/ as6 patient. Client placed on continuous cardiac and pulse oximetry monitoring. NIBP monitoring applied. Warm blanket given. Pillow given. 01:25 Inserted saline lock: 20 gauge in right antecubital area, using aseptic technique. as6 Blood collected. 02:07 XRAY Chest (1 view) In Process Unspecified. EDMS 02:16 CT Chest, Abdomen, Pelvis - W/Contrast In Process Unspecified. EDMS 04:59 No provider procedures requiring assistance completed. Patient transferred, IV remains as6 in place. Administered Medications: 01:00 Drug: NS 0.9% (30 ml/kg) 30 ml/kg Route: IV; Rate: bolus; Site: right antecubital; as6 05:01 Follow up: Response: No adverse reaction; IV Status: Completed infusion; IV Intake: as6 3497.1ml 01:00 Drug: fentaNYL (PF) 25 mcg Route: IVP; Site: right antecubital; as6 04:59 Follow up: Response: No adverse reaction as6 01:00 Drug: Zofran (Ondansetron) 4 mg Route: IVP; Site: right antecubital; as6 05:00 Follow up: Response: No adverse reaction as6 02:00 Drug: Cefepime 2 grams Route: IVPB; Rate: 200 ml/hr; Infused Over: 30 mins; Site: right as6 antecubital; 05:00 Follow up: Response: No adverse reaction; IV Status: Completed infusion; IV Intake: as6 100ml 03:21 Drug: vancoMYCIN 1.5 grams Route: IVPB; Rate: calculated rate; Site: right antecubital; as6 05:00 Follow up: Response: No adverse reaction; IV Status: Completed infusion; IV Intake: as6 250ml 03:37 Drug: fentaNYL (PF) 25 mcg Route: IVP; Site: right antecubital; as6 04:59 Follow up: Response: No adverse reaction as6 03:37 Drug: Flagyl (metroNIDAZOLE) 500 mg Volume: 100 ml; Route: IVPB; Rate: 200 ml/hr; as6 Infused Over: 30 mins; Site: right antecubital; 05:00 Follow up: Response: No adverse reaction; IV Status: Completed infusion; IV Intake: as6 100ml Medication: 01:21 VIS not applicable for this client. as6 Intake: 05:00 IV: 250ml; Total: 250ml. as6 05:00 IV: 100ml; Total: 350ml. as6 05:00 IV: 100ml; Total: 450ml. as6 05:01 IV: 3497ml; Total: 3947ml. as6 Output: 04:58 Urine: 1500ml (Tejada); Total: 1500ml. as6 Outcome: 04:14 ER care complete, transfer ordered by MD. qiu 04:59 Transferred by ground EMS to [facility], Transfer form completed. as6 X-rays sent w/ patient. 04:59 Condition: stable 04:59 Instructed on the need for transfer. 05:01 Patient left the ED. as6 Signatures: Dispatcher [employer] EDMS Yobany Lord MD MD cha Attema, Lee, KEYING MACHINE OPERATOR-C KEYING MACHINE OPERATOR-Cla1 Yobany Muse PA PA cp Slawson, Ashby, RN RN as6 Virginia Moss RN RN kd3 Gely Stuart, RN RN aa9
--- NOTE | 2022-08-08 04:14 | EDPHYS ---
Physician Documentation [facility] Name: Aidan East Age: 37 yrs Sex: Male : 1985 Arrival Date: 08/08/2022 Time: 00:15 Bed 6 Private MD: ED Physician Yobany Lord HPI: 08/08 00:30 This 37 yrs old Male presents to ER via EMS with complaints of Fever. cp 00:30 The patient reports fever, that was measured at 101 degrees Fahrenheit. cp 00:30 Onset: The symptoms/episode began/occurred 2 day(s) ago. cp 00:30 Associated signs and symptoms: Pertinent positives: abdominal pain, chills, Pertinent cp negatives: cough, diarrhea, headache, runny nose, vomiting. Severity of symptoms: in the emergency department the symptoms are unchanged despite home interventions. Historical: - Allergies: 01:18 No Known Allergies; as6 - PMHx: 01:18 paraplegic; testicular cancer; as6 - PSHx: 01:18 T12 surgery; Testicle removed; as6 - Immunization history:: Client reports having NOT received the Covid vaccine. Flu vaccine is not up to date. - Social history:: Smoking status: Patient denies any tobacco usage or history of. ROS: 00:35 Constitutional: Positive for chills, Negative for fever. cp 00:35 Cardiovascular: Negative for chest pain, edema. cp 00:35 Eyes: Negative for injury, pain, redness, and discharge. cp 00:35 ENT: Negative for drainage from ear(s), ear pain, sore throat, difficulty swallowing, difficulty handling secretions. 00:35 Respiratory: Negative for cough, shortness of breath, wheezing. 00:35 Abdomen/GI: Negative for abdominal pain, nausea, vomiting, and diarrhea, constipation. 00:35 Back: Positive for flank pain, on the right. 00:35 Neuro: Negative for altered mental status, dizziness, weakness. 00:35 All other systems are negative. Exam: 00:40 Constitutional: The patient appears in no acute distress, alert, awake, cp non-diaphoretic, non-toxic, well developed, well nourished. 00:40 Head/Face: Normocephalic, atraumatic. cp 00:40 Eyes: Periorbital structures: appear normal, Conjunctiva: normal, no exudate, no injection, Sclera: no appreciated abnormality, Lids and lashes: appear normal, bilaterally. 00:40 ENT: External ear(s): are unremarkable, Nose: is normal, Mouth: Lips: moist, Oral mucosa: moist, Posterior pharynx: Airway: no evidence of obstruction, patent. 00:40 Neck: ROM/movement: is normal, is supple, without pain, no range of motions limitations, no meningismus. 00:40 Chest/axilla: Inspection: normal, Palpation: is normal, no crepitus, no tenderness. 00:40 Cardiovascular: Rate: tachycardic, Rhythm: regular, Edema: is not appreciated, JVD: is not appreciated. 00:40 Respiratory: the patient does not display signs of respiratory distress, Respirations: normal, no use of accessory muscles, no retractions, labored breathing, is not present, Breath sounds: are clear throughout, no decreased breath sounds, no stridor, no wheezing. 00:40 Abdomen/GI: Inspection: abdomen appears normal, Bowel sounds: active, all quadrants, Palpation: soft, in all quadrants, moderate abdominal tenderness, in the anterior aspect of right lateral abdomen and posterior aspect of right lateral abdomen, rebound tenderness, is not appreciated, involuntary guarding, is not appreciated. 00:40 Back: CVA tenderness, is absent. 00:40 Skin: cellulitis, that is moderate, on the buttocks, quarter size open wound left buttock w/o drainage. 00:40 Neuro: Orientation: to person, place \T\ time. Mentation: is normal, paraplegic. 00:47 ECG was reviewed by the Attending Physician. cp Vital Signs: 00:37 BP 114 / 75; Pulse 151; Resp 25 S; Temp 98.2(O); Pulse Ox 94% on R/A; Weight 116.57 kg as6 (R); Height 5 ft. 1 in. (154.94 cm) (R); Pain 9/10; 01:02 BP 108 / 62; Pulse 137; Resp 18 S; Pulse Ox 95% on R/A; aa9 01:18 BP 98 / 50; Pulse 135; Resp 32 S; Pulse Ox 93% on R/A; as6 01:56 BP 98 / 55; Pulse 126; Resp 15 S; Temp 100.0(O); Pulse Ox 96% on R/A; as6 02:25 BP 108 / 69; Pulse 120; Resp 17 S; Pulse Ox 95% on R/A; Pain 8/10; as6 03:20 BP 101 / 55; Pulse 111; Resp 17 S; Temp 97.5(O); Pulse Ox 96% on R/A; as6 03:40 BP 102 / 52; Pulse 108; Resp 20 S; Pulse Ox 96% on R/A; as6 04:00 BP 106 / 58; Pulse 112; Resp 19 S; Pulse Ox 96% on R/A; aa9 04:58 BP 105 / 61; Pulse 109; Resp 22 S; Pulse Ox 97% on R/A; as6 00:37 Body Mass Index 48.56 (116.57 kg, 154.94 cm) as6 MDM: 00:18 Patient medically screened. uyen 00:30 Differential diagnosis: viral Infection, bacterial infection, bronchitis, pneumonia cp UTI, gastroenteritis, meningitis, sepsis, osteomyelitis, cellulitis. 03:00 Data reviewed: vital signs, nurses notes, lab test result(s), EKG, radiologic studies, cp plain films. 03:00 I considered the following discharge prescriptions or medication management in the emergency department Medications were administered in the Emergency Department. See MAR. Care significantly affected by the following chronic conditions: paraplegia. Awaiting: CT scan results, will hand-off to DR Lord. 03:00 ED course: Patient qualifies for severe sepsis. A) source of infection is cellulitis. SIRS criteria: HR >90, WBC >12. C) observed BP >90. 08/08 00:23 Order name: Basic Metabolic Panel; Complete Time: 01:18 cp 08/08 01:18 Interpretation: Normal except: K 3.4; GLUC 125; CRE 0.64. 08/08 00:23 Order name: CBC with Diff; Complete Time: 01:18 cp 08/08 01:19 Interpretation: Normal except: WBC 15.40; RBC 3.73; HGB 9.7; HCT 29.9; MCH 25.9; PLT cp 819; RDW 17.4; MPV 6.3; MOISE% 79.5; LYM% 8.3; NEUT A 12.3; MNA 1.8. 08/08 00:23 Order name: LFT's; Complete Time: 01:18 cp / 01:19 Interpretation: Normal except: ALK 156; TP 9.0; ALB 2.8; GLOB 6.2; A/G 0.5. cp 02/ 00:23 Order name: Magnesium; Complete Time: 01:18 cp 08/08 00:23 Order name: PT-INR; Complete Time: 01:05 cp 08/08 00:23 Order name: Troponin HS; Complete Time: 01:18 cp 08/08 00:23 Order name: Lactate w/ 2H reflex if indic.; Complete Time: 01:18 cp 08/08 01:44 Interpretation: Reviewed. cp 08/08 00:23 Order name: COVID-19/FLU A+B; Complete Time: 01:40 cp 08/08 00:23 Order name: Procalcitonin; Complete Time: 01:43 cp 08/08 01:43 Interpretation: Procalcitonin < 0.05; Reviewed. cp 08/08 00:23 Order name: Urine Microscopic Only; Complete Time: 01:22 cp 08/08 01:41 Interpretation: Reviewed. cp 08/08 00:23 Order name: Blood Culture Adult (2) cp 08/08 00:50 Order name: NT PRO-BNP; Complete Time: 01:18 EDMS 08/08 01:18 Order name: Urine Dipstick-Ancillary; Complete Time: 01:22 EDMS 08/08 00:23 Order name: XRAY Chest (1 view); Complete Time: 01:45 cp 08/08 00:23 Order name: EKG; Complete Time: 00:24 cp 08/08 00:23 Order name: Cardiac monitoring; Complete Time: 00:37 cp 08/08 00:23 Order name: EKG - Nurse/Tech; Complete Time: 00:40 cp 08/08 00:23 Order name: IV Saline Lock; Complete Time: 00:37 cp 08/08 00:23 Order name: Labs collected and sent; Complete Time: 00:37 cp 08/08 00:23 Order name: O2 Per Protocol; Complete Time: 00:37 cp 08/08 00:23 Order name: O2 Sat Monitoring; Complete Time: 00:37 cp 08/08 01:22 Order name: CT Chest, Abdomen, Pelvis - W/Contrast; Complete Time: 01:45 cp 08/08 00:23 Order name: Cath; Complete Time: 01:17 cp 02 00:23 Order name: Urine Dipstick-Ancillary (obtain specimen); Complete Time: 01:17 cp EC:47 Rate is 143 beats/min. Rhythm is regular. CT interval is normal. QRS interval is cp normal. QT interval is normal. Interpreted by me. Reviewed by me. Administered Medications: 01:00 Drug: NS 0.9% (30 ml/kg) 30 ml/kg Route: IV; Rate: bolus; Site: right antecubital; as6 05:01 Follow up: Response: No adverse reaction; IV Status: Completed infusion; IV Intake: as6 3497.1ml 01:00 Drug: fentaNYL (PF) 25 mcg Route: IVP; Site: right antecubital; as6 04:59 Follow up: Response: No adverse reaction as6 01:00 Drug: Zofran (Ondansetron) 4 mg Route: IVP; Site: right antecubital; as6 05:00 Follow up: Response: No adverse reaction as6 02:00 Drug: Cefepime 2 grams Route: IVPB; Rate: 200 ml/hr; Infused Over: 30 mins; Site: right as6 antecubital; 05:00 Follow up: Response: No adverse reaction; IV Status: Completed infusion; IV Intake: as6 100ml 03:21 Drug: vancoMYCIN 1.5 grams Route: IVPB; Rate: calculated rate; Site: right antecubital; as6 05:00 Follow up: Response: No adverse reaction; IV Status: Completed infusion; IV Intake: as6 250ml 03:37 Drug: fentaNYL (PF) 25 mcg Route: IVP; Site: right antecubital; as6 04:59 Follow up: Response: No adverse reaction as6 03:37 Drug: Flagyl (metroNIDAZOLE) 500 mg Volume: 100 ml; Route: IVPB; Rate: 200 ml/hr; as6 Infused Over: 30 mins; Site: right antecubital; 05:00 Follow up: Response: No adverse reaction; IV Status: Completed infusion; IV Intake: as6 100ml Disposition Summary: 08/08/22 04:14 Transfer Ordered Transfer Location: [facility] uyen Reason: Higher level of care uyen Condition: Serious uyen Problem: new uyen Symptoms: have improved uyen Accepting Physician: [facility](08/08/22 05:01) as6 Diagnosis - Fever, unspecified uyen - Severe sepsis without septic shock uyen - Cutaneous abscess of buttock - 7CMX 5 CM DEEP ISCHIAL , BONY DESTRUCTION uyen - Anemia in other chronic diseases classified elsewhere uyen - Malignant (primary) neoplasm, unspecified - testicular metastatic, pulmonary uyen involvment Forms: - Medication Reconciliation Form uyen - SBAR form uyen Signatures: Dispatcher [employer] EDMS Yobany Lord MD MD cha Attema, Lee, BUSINESS ADMINISTRATOR-C BUSINESS ADMINISTRATOR-Cla1 Yobany Muse PA PA cp Elia Jack, RN RN as6 Corrections: (The following items were deleted from the chart) 00:49 00:26 PROBNP+C.LAB.BRZ ordered. EDNC EDMS 00:49 00:48 This 37 yrs old Male presents to ER via EMS with complaints of Fever. cp cp 00:49 00:25 This 37 yrs old Male presents to ER via EMS with complaints of Fever. cp cp 00:49 00:25 The patient reports fever, that was measured at 101 degrees Fahrenheit, cp cp 05:01 04:14 [facility] uyen as6 08/09 01:49 02 03:00 ED course: Patient qualifies for severe sepsis. A) source of infection is cp cellulitis. SIRS criteria: HR >90, WBC >12. cp
[2022-08-08 05:28] VITALS: TEMP 97.5
[2022-08-08 05:31] VITALS: BP 105/61; O2SAT 97
--- NOTE | 2022-08-08 13:15 | RAD REPORT ---
EXAM DESCRIPTION: CT - Chest Abdomen Pelvis W Cont - 08/08/2022 6:10 am ADDENDUM #1 The following addendum is being made to expand on the patient's clinical history, and does not change the findings or recommendations of the original report. 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 These findings were discussed with Richard Atwood NP on 08/08/2022 at 3: 13 AM central time. The pulmonary parenchymal nodules described in the report may be related to metastatic testicular cancer in light of the additional provided clinical history. Electronically signed by: Vanesa Silverman DO 08/08/2022 3:27 AM [facility] End of Addendum EXAM DESCRIPTION: 1. CT scan of the CHEST with intravenous contrast. 2. CT scan of the ABDOMEN AND PELVIS with intravenous contrast CLINICAL HISTORY: 37 years Male fever. TECHNIQUE: CT imaging of the chest, abdomen and pelvis with intravenous contrast administration. Sag ittal and coronal reconstructed images were performed. The CT study is performed according to ALARA ( as low as reasonably achievable) or ALARA/IMAGE GENTLY, with automatic adjustment of mA and/or kV acc ording to patient size. Performed on: 08/08/2022 at 2:03 AM COMPARISON: CT chest performed on 05/25/[address] abdomen and pelvis performed on 03/14/2022 FINDINGS: CHEST: Lungs: The lungs are well expanded. There are numerous bilateral pulmonary parenchymal nodules and a couple a cavitary lesion is best appreciated in the right upper lobe (series 402, image, 13, 18, 25 a nd 45. The largest nodule is a cavitating lesion in the left lower lobe which measures approximately 3.2 x 2.8 cm in cross-sectional diameter. The largest non cavitating nodule appears to be in the post erior right lower lobe on image 41 measures approximately 2.3 x 1.8 cm in cross-sectional diameter. T his has increased in size when compared to prior study. Many of the pulmonary nodules have decreased in size since the prior study and many are new or have increased in size. Findings are concerning for a diffuse infectious/inflammatory process. There is mild fibrosis and/or atelectasis in the dependen t lungs and lingula. There are no pleural effusions. There is no pneumothorax. The central airways ar e patent. Heart: The heart is normal in size. There is no pericardial effusion. Mediastinum: The mediastinum is unremarkable. The mediastinal vessels are normal in caliber and con tour. Bones: There has been prior posterior fusion of T11-L1 utilizing pedicle screws to stabilize a wedge compression fracture of T12. The indwelling hardware is intact without evidence to suggest hardware f ailure. Soft tissues: No focal soft tissue abnormalities are identified. An Geuhpt-g-[id number] catheter projects o yvette the anterior superior right chest wall. The tip of the catheter extends into the superior vena ca va. Lymphadenopathy: There has been significant decrease in size of the mediastinal and hilar lymphaden opathy when compared to the prior study. There is no evidence of axillary lymphadenopathy. ABDOMEN/PELVIS: Liver: The liver is enlarged and measures 22 cm in craniocaudal dimension. No focal hepatic abnormali ties are identified. Liver attenuation is within normal limits. Spleen: The spleen is normal in size, configuration and attenuation. Gallbladder and bile duct: The gallbladder is well distended and unremarkable. There is no biliary ductal dilatation. Pancreas: The pancreas is grossly normal in size and configuration. Adrenal Glands: The adrenal glands are normal in size and configuration. Kidneys: The kidneys are normal in size and configuration. There is no evidence of hydronephrosis. Th ere is no evidence of nephrolithiasis. No definite solid or cystic renal mass lesions are identified. Stomach: The stomach is grossly normal. There is no definite hiatal hernia. Bowel: The bowel gas pattern is non specific and non obstructive. Appendix: The appendix is normal. Free air: There is no evidence of free air. Free fluid: There is no evidence of free fluid. Vasculature: The aorta is normal in caliber and contour. The inferior vena cava is grossly unremarkab le. An inferior vena cava filter is present in stable position. Lymphadenopathy: There is retroperitoneal lymphadenopathy which has increased in size since the prior study. There are external iliac lymph nodes more prominent on the left. Bladder: The bladder is decompressed due to the presence of a Tejada catheter. Reproductive: The prostate gland is grossly within normal limits. Bones: Again demonstrated are remote postsurgical changes consistent with posterior fusion of T11-L1 to stabilize a wedge compression fracture of T12 resulting in a gibbus deformity. There are also microcomputer support specialist placido changes involving the left inferior pubic ramus secondary to a deep posterior left ischial decubi tus ulcer/abscess with a percutaneous fistulous tract. This suspected abscess measures approximately 7.1 x 5.4 cm in cross-sectional diameter. There is chronic sclerosis and fragmentation of the posteri or inferior left pubic ramus. There is partial ankylosis of the sacroiliac joints. Soft tissues: There is diffuse muscular atrophy involving the hips and pelvis. IMPRESSION: CT CHEST: 1. Numerous bilateral pulmonary parenchymal nodules and a couple of cavitary lesions as described a hilario. Many of the pulmonary nodules have decreased in size since the prior study and many are new or have increased in size. Findings are concerning for a diffuse infectious/inflammatory process. 2. Interval decrease in size of the mediastinal and hilar lymphadenopathy when compared to the prio r study. 3. Right IJ Egmyfp-p-Sjql catheter present and terminates in the superior vena cava. CT ABDOMEN AND PELVIS: 1. There is retroperitoneal lymphadenopathy which has increased in size since the prior study. Ther e are also external iliac chain lymph nodes, more prominent on the left. 2. Hepatomegaly. 3. Remote postsurgical changes consistent with posterior fusion of T11-L1 to stabilize a wedge comp ression fracture of T12 with associated gibbus deformity. 4. Deep posterior left ischial decubitus ulcer/abscess with a percutaneous fistulous tract. This reid spected abscess measures approximately 7.1 x 5.4 cm in cross-sectional diameter. There is chronic scl erosis and fragmentation of the posterior inferior left pubic ramus. Findings are similar when compar ed to the prior study. 5. Partial ankylosis of the sacroiliac joints. 6. Inferior vena cava filter in stable position. 7. Diffuse muscular atrophy involving the hips and pelvis. Electronically signed by: Vanesa Silverman DO 08/08/2022 3:06 AM MEAT CUTTER Due to temporary technical issues with the PACS/Fluency reporting system, reports are being signed by the in house radiologists without review as a courtesy to insure prompt reporting. The interpreting radiologist is fully responsible for the content of the report.
--- NOTE | 2022-08-08 13:16 | RAD REPORT ---
EXAM DESCRIPTION: RAD - Chest Single View - 08/08/2022 1:58 am CLINICAL HISTORY: FEVER COMPARISON: 05/25/2022. TECHNIQUE: XR CHEST 1 VIEW 08/08/2022 12:23 AM MERCHANDISE PROCESSOR FINDINGS: The heart is enlarged. There are multiple nodules throughout both lungs measuring up to 1. 7 cm. There may be small pleural effusions. There is no pneumothorax. There are no acute osseous find ings. Right chest port is in place with the catheter tip in the mid to upper SVC. IMPRESSION: Relatively little change with interval placement of right chest port. No convincing pneu monia. Electronically signed by: Danny Stiles MD 08/08/2022 2:07 AM MERCHANDISE PROCESSOR Due to temporary technical issues with the PACS/Fluency reporting system, reports are being signed by the in house radiologists without review as a courtesy to insure prompt reporting. The interpreting radiologist is fully responsible for the content of the report.
== END 2022-08-08 05:01 | disposition short-term general hospital (02) ==
LOC: ER 00:13
DX: A41.9 Sepsis, unspecified organism (principal); L02.31 Cutaneous abscess of buttock; R65.20 Severe sepsis without septic shock; D64.9 Anemia, unspecified; C62.90 Malignant neoplasm of unspecified testis, unspecified whether descended or undescended; C78.00 Secondary malignant neoplasm of unspecified lung; G82.20 Paraplegia, unspecified; Z20.822 Contact with and (suspected) exposure to COVID-19
CPT/HCPCS: 93005; 87040 ×2; 85025; 80048; 36415; 83735; 85610; 80076; 83605; 84484; 84145; 83880; 0240U; 71260; 74177; 71045; Q9967; J3010; J3370; J0692; J7050; J7040; J7030; J2405; 81003; 81015; 87205

== ENCOUNTER 2022-08-21 23:38 | Emergency (ER) | payer OTHER ==
--- OUTSIDE RECORDS SUMMARY | 2022-08-21 23:56 | XMS REPORT | Continuity of Care Document ---
:1985 Author Organization [facility] t Address [address] [place] [address] Care Team Providers Name Role Phone Gabriella Giles Primary Care Physician Zay CONNOR, Chad Yepez Attending Clinician TIM MORALEZ Attending Clinician Unavailable YUMI BRITO Attending Clinician Unavailable NAVEEN VICENTE Attending Clinician Unavailable Shannan Price MD Attending Clinician [phone] Bette Johnson MD Attending Clinician [phone] Naveen Vicente MD Attending Clinician SHANNAN PRICE Attending Clinician Unavailable JARAD RUIZ Attending Clinician Unavailable FRANKO OLIVA Attending Clinician Unavailable NAVEEN ORJAS Attending Clinician Unavailable Lazaro Garcia MD Attending Clinician Enid Butt MD Attending Clinician Pacheco Mccoy MD Attending Clinician Naveen Rojas DO Attending Clinician Efrain Fontenot MD Attending Clinician Norm King MD Attending Clinician Unavailable SENTHIL BOYD Attending Clinician Unavailable Priyanka CONNOR, Maurizio Eaton Attending Clinician Carol CONNOR, Beth Mary Attending Clinician [phone] Berto CONNOR, Amberly Scruggs Attending Clinician Merchant CONNOR, Jamel Attending Clinician Kristy CONNOR, Uriel Attending Clinician Keke CONNOR, Senthil Wong Attending Clinician [phone] Doctor Unassigned, [place] Attending Clinician Unavailable ALISE MUÑOZ RP Attending Clinician Unavailable Zulay SIN, Shruthi Attending Clinician Gabriella Giles Attending Clinician Sukhwinder CONNOR, Felipa Attending Clinician SHRUTHI HEARN Attending Clinician Unavailable Mary CONNOR, Johnathan Attending Clinician Rocael FOOD COUNTER ATTENDANT, Sid Garvey Attending Clinician [phone] Virtual, Surgeon Attending Clinician Unavailable Ruth Miller MD Attending Clinician Gus FOOD COUNTER ATTENDANT, Marianne Pozoil Attending Clinician Unavailable Marianne Mandel MD Attending Clinician Socorro CONNOR, Ami Attending Clinician EZEKIEL VOGEL Attending Clinician Unavailable Atilio LUCAS, Sarita Pascual Attending Clinician Unavailable VAL LANGE Attending Clinician Unavailable Phu Breaux DO Attending Clinician Val Lange MD Attending Clinician Elena Ralph RN Attending Clinician CORTEZ BLANCO Attending Clinician Unavailable Rufus White MD Attending Clinician Cortez Blanco MD Attending Clinician GABRIELLA PATEL Attending Clinician Unavailable Janneth CONNOR, Alise Rp Attending Clinician Eran Feliz MD Attending Clinician [facility] Attending Clinician Unavailable JOSE JUAN YA Attending Clinician Unavailable Tejada PAC, Joyce S Attending Clinician Jose Juan Ya MD Attending Clinician Lab, Ang - Db Attending Clinician Unavailable Cori SIN, Janessa Michael Attending Clinician Joseph CONNOR, Jarad Conner Attending Clinician JULIETTE DOWNING Attending Clinician Unavailable Juliette Downing MD Attending Clinician Tim Moralez DO Attending Clinician Sindy CONNOR, Chas Reyes Attending Clinician Yee Neff CRNA Attending Clinician Only, Adc Test Attending Clinician Unavailable Maurizio Carpenter MD Attending Clinician MAURIZIO CARPENTER Attending Clinician Unavailable 2, [facility] Attending Clinician Unavailable EVELINE WHITLEY Attending Clinician Unavailable HASMUKH GAONA Attending Clinician Unavailable Katt Vega LMSW Attending Clinician Yun Oliver MD Attending Clinician YUN OLIVER Attending Clinician Unavailable Padmaja Bradley Attending Clinician Unavailable PHU BREAUX Attending Clinician Unavailable Carlita Hope Attending Clinician GRAMM, ALICIA A Attending Clinician Unavailable Gramm SOAP DRIER OPERATOR, Alicia A Attending Clinician JACLYN PARKER Attending Clinician Unavailable Christie CONNOR, García Attending Clinician Indu Gambino MD Attending Clinician Jaclyn Parker MD Attending Clinician Po, [facility] Lab Main Attending Clinician Unavailable SALMA DE LA TORRE Attending Clinician Unavailable Salma De La Torre MD Attending Clinician 1, [facility] Attending Clinician Unavailable TIM MORALEZ Admitting Clinician Unavailable SHANNAN PRICEITROOCLLINS Admitting Clinician Unavailable EFRAIN FONTENOT Admitting Clinician Unavailable AMBERLY FRIAS Admitting Clinician Unavailable VAL LANGE Admitting Clinician Unavailable Val Lange MD Admitting Clinician CORTEZ BLANCO Admitting Clinician Unavailable Cortez Blanco MD Admitting Clinician JOYCE TEJADA Admitting Clinician Unavailable Naomy MENEZES Tim Admitting Clinician JULIETTE DOWNING Admitting Clinician Unavailable Juliette Downing MD Admitting Clinician EVELINE WHITLEY Admitting Clinician Unavailable YUN OLIVER Admitting Clinician Unavailable INDU GAMBINO Admitting Clinician Unavailable Payers Payer Name Policy Type Policy Number Effective Date Expiration Date Flavia francisco [facility] [id number] 2017 PLUS 00:00:00 COMMUNITY PLAN [id number] [facility] Problems Condition Condition Condition Status Onset Resolution Last Treating Co mments Source Name Details Category Date Date Treatment Clinician Date Decubitus Decubitus Disease Active [facility]: Medical 00 [place] Neutropeni Neutropeni Disease Active [facility] a, a, 1-18 [facility] unspecifie unspecifie 00:00: Me dical d type d type 00 [place] Malignant Malignant Disease Active 2021-[address] [facility] [...] nivers itis itis 2-05 ity of 00:00: [address] Osteomyeli Osteomyeli Disease Active U nivers tis tis 9-07 ity of 00:00: [address] Mass of [place] of Disease Active 2022-0 Overview: Univ ers right right 8-18 [place] ity of testicle testicle 00:00: g of this [place] 00 note Medical might be Branch different from the original. Added automatic ally from request for surgery [id number] History of History of Disease Active U nivers paraplegia paraplegia 1-13 it y of 00:00: [place] [facility] Infection Infection Disease Active Uni vers due to due to 1-11 ity of ESBL-produ ESBL[place]produ [place] 00 Medical [place] Br anch a coli a coli Pressure Pressure Disease Active 2020-07 Unive rs ulcer ulcer 2-27 ity of 00:00: [place] [facility] Pressure Pressure Disease Active 2020-07 Unive rs ulcer ulcer 2-27 ity of 00:00: [place] [facility] Epididymit Epididymit Disease Active 2020-[address] is is 0-11 [facility] 00:00: [address] Obesity Obesity Disease Active 2016-07 Univers 2-21 ity of 00:00: [place] [facility] Tobacco Tobacco Disease Active 2016-07 Univers abuse abuse 2-21 ity of 00:00: [place] [facility] HTN HTN Disease Active 2016-07 Univers (hypertens (hypertens 0-16 it y of ion) ion) 00:00: [place] [facility] Sepsis Sepsis Disease Active 2016-07 Univers 0-16 ity of 00:00: [place] [facility] Bacteremia Bacteremia Disease Active 2016-07 U nivers 0-16 ity of 00:00: [place] [facility] Ureteritis Ureteritis Disease Active U nivers 8-12 ity of 00:00: [place] [facility] UTI UTI Disease Active Univers (urinary (urinary 6-22 ity of tract tract 00:00: [place] infection) infection) 00 Vt dical Branch Fever Fever Disease Active Univers 6-22 ity of 00:00: [place] [facility] Leukocytos Leukocytos Disease Active U nivers is is 6-22 ity of 00:00: [place] [address] Medical Branch Allergies, Adverse Reactions, Alerts Allergy Allergy Status Severity Reaction(s) Onset Inactive Treating Comm ents Source Name Type Date Date Clinician NO KNOWN Drug Active Univers ALLERGIE Class ity of S [facility] NO KNOWN Allergy Active [facility] Family History Family Member Diagnosis Comments Start Date Stop Date Source Natural father No Significant Univer sity [facility] [place] [facility] Natural mother No Significant Univer s[facility] [place] [facility] Social History Social Habit Start Date Stop Date Quantity Comments Source History of tobacco 2022-02-20 Cigarette Smoker University of use 00:00:00 [place] [facility] History SDPR University o f Alcohol Frequency [place] [facility] History SDOH University o f Alcohol Std Drinks [place] [facility] History SDOH University o f Alcohol Binge [place] [facility] History SDOH [facility]-Med Medical [facility] History SDOH [facility] Housing Places Medical Ce nter Lived Exposure to 2022-07-14 2022-07-[address] [facility] SARS-CoV-2 (event) 00:00:00 20:48:00 Medica l Center Alcohol intake 2022-07-24 2022-07-24 Ex-drinker [facility] 00:00:00 00:00:00 (finding) Medical Center History SDOH 2022-06-27 2022-06-[address] [facility] Transport Med 00:00:00 00:00:[address] History [facility] 2022-06-27 2022-06-[address] [facility] Unable to 00:00:00 00:00:00 Medical Center Pay History [facility] 2022-06-27 2022-06-[address] [facility] Homeless 00:00:00 00:00:00 Medical Center Last Year Alcohol Comment 2022-04-19 2022-04-19 social Universit y of 00:00:00 00:00:00 [facility] Cigarettes smoked 2022-04-19 2022-04-19 Univers ity of current (pack per 00:00:00 00:00:00 [facility] edical ) - Reported Branch Cigarette 2022-04-19 2022-04-19 University of pack-years 00:00:00 00:00:00 [facility] Education 2022-04-19 2022-04-19 14 University of 00:00:00 00:00:00 [facility] Tobacco Comment 2022-03-14 2022-03-14 3 cigarettes Univers ity of 00:00:00 00:00:00 daily. [facility] Tobacco use and 2021-04-17 2021-04-17 Never used GENEVIEVE Veras [facility] exposure 00:00:00 00:00:00 Medical Center Sex [birth year] At [birth year] M GENEVIEVE Marie 00:00:00 00:00:00 Medical Center Smoking Status Start Date Stop Date Source Smokes tobacco daily 2022-04-19 00:00:00 [facility] Never smoker [facility] Med ical Center Medications Ordered Filled Start Stop Current Ordering Indication Dosage Frequency Signature Comments Components Source Medication Medication Date Date Medication? Clinician (SIG) Name Name amoxicillin 2022- Yes 1{tbl} Q.5D Take [address] -clavulanat 2-14 -16 tablet by Nora rand e 00:00: 23:59 mouth 2 Medical (AUGMENTIN) 00 :00 (two) Center 500-125 mg times per tablet daily for 30 days. polyethylen 2022- Yes 17g QD Take [address] [facility] glycol -18 09-16 by mouth [facility] (GLYCOLAX) 00:00: 23:59 daily for M edical 17 gram 00 :00 30 days. Center packet promethazin 2022- Yes 25mg Take [address] [facility] e 2-14 -24 tablet (25 [facility] (PHENERGAN) 00:00: 23:59 mg total) Medical 25 MG 00 :00 by mouth Center tablet every 6 (six) hours as needed for Nausea for up to 10 days. ondansetron 2022- Yes 8mg Take [address] (ZOFRAN) 8 -21 08-24 tablet (8 Jennifer es MG tablet 00:00: 23:59 mg total) Me dical 00 :00 by mouth 3 Center (three) times daily as needed for Nausea for up to 10 days. HYDROcodone 2022- Yes 2{tbl} Take [address] -acetaminop 2-14 -21 tablets by Dusty bueno (NORCO 00:00: 23:59 mouth Medic al 5-325) 00 :00 every 4 Center 5-325 mg (four) per tablet hours as needed for up to 7 days. Max Daily Amount: 12 tablets ondansetron 2022- No 4mg Take [address] [facility] (ZOFRAN) 4 2-14 02-14 tablet (4 Jennifer es MG tablet 00:00: 00:00 mg total) Me dical 00 :00 by mouth 3 Center (three) times daily as needed for Nausea for up to 10 days. doxycycline 2022- Yes 100mg Take 1 [...] (twelve) hours for 60 days. doxycycline 2022- No 100mg Take [address] (MONODOX) 07-27 capsule [facility] 100 MG 00:00: 00:00 (100 [...] mouth 2 (two) times daily. lactobacill 2022- No 1{capsu QD Take [address] us 07-1914 le} capsule by [facility] rhamnosus, 00:00: 00:00 mouth Medic al GG, 00 :00 daily for [place] ([facility] 30 days. ) 10 billion cell capsule doxycycline 2022- No 100mg Q.5D Take [address] (MONODOX) 07-19 capsule [facility] 100 MG 00:00: 00:00 (100 mg Medical capsule 00 :00 total) by Center mouth 2 (two) times daily for 30 days. lactobacill 2022- Yes 1{capsu QD Take [address] [facility] us 07-19-11 le} capsule by [facility] rhamnosus, 00:00: 23:59 mouth Medic al GG, 00 :00 daily for Center [facility] ) 10 billion cell capsule doxycycline 2022- Yes 100mg Q.5D Take [address] (MONODOX) 07-19 capsule [facility] 100 MG 00:00: 23:59 (100 mg Medical capsule 00 :00 total) by Center mouth 2 (two) times daily for 30 days. lactobacill 2022- Yes 1{capsu QD Take [address] us 07-19-11 le} capsule by [facility] rhamnosus, 00:00: 23:59 mouth Medic al GG, 00 :00 daily for [place] (CULTUREE 30 days. ) 10 billion cell capsule [...] al GG, 00 :00 daily for Center ([facility] 30 days. ) 10 billion cell capsule doxycycline 2022- Yes 100mg Q.5D Take [address] (MONODOX) 07-19 capsule [facility] 100 MG 00:00: 23:59 (100 mg Medical capsule 00 :00 total) by Center mouth 2 (two) times daily for 30 days. lactobacill 2022- Yes 1{capsu QD Take [address] us 07-19 le} capsule by Julio rhamnosus, 00:00: 23:59 mouth Medic al GG, 00 :00 daily for Center ([facility] 30 days. ) 10 billion cell [...] Diarrhea for up to 10 days. HYDROcodone 2022-0 2022- No 1{tbl} Take [address] -acetaminop 07-18 tablet by Nora bueno (NORCO 00:00: 23:59 mouth Medic al 10-325) 00 :00 every 6 Center 10-325 mg (six) per tablet hours as needed for Pain for up to 10 days. Max Daily Amount: 4 tablets loperamide 2022-0 2022- No 2mg Take [address] [facility] (IMODIUM) 2 07-18 capsule (2 L ukes mg capsule 00:00: 23:59 mg total) M edical 00 :00 by mouth 4 Center (four) times daily as needed for Diarrhea for up to 10 days. HYDROcodone 2022-0 2022- No 1{tbl} Take [address] -acetaminop 07-18 tablet by Nora bueno (NORCO 00:00: 23:59 mouth Medic al 10-325) 00 :00 every 6 Center 10-325 mg (six) per tablet hours as needed for Pain for up to 10 days. Max Daily Amount: 4 tablets loperamide 2022-0 2022- No 2mg Take [address] [facility] (IMODIUM) 2 07-18 capsule (2 L ukes mg capsule 00:00: 23:59 mg total) M edical 00 :00 by mouth 4 Center (four) times daily as needed for Diarrhea for up to 10 days. HYDROcodone 2022-0 2022- No 1{tbl} Take [address] -acetaminop 07-18 tablet by Noar bueno (NORCO 00:00: 23:59 mouth Medic al 10-325) 00 :00 every 6 Center 10-325 mg (six) per tablet hours as needed for Pain for up to 10 days. Max Daily Amount: 4 tablets loperamide 2022-0 2022- No 2mg Take [address] [facility] (IMODIUM) 2 07-18 capsule (2 L ukes mg capsule 00:00: 23:59 mg total) M edical 00 :00 by mouth 4 Center (four) times daily as needed for Diarrhea for up to 10 days. HYDROcodone 2022-2022- No 1{tbl} Take [address] [...] Nausea for up to 8 days. doxycycline 2022-0 2023- No 100mg Q.5D Take [address] (MONODOX) 07-18 capsule [facility] 100 MG 00:00: 00:00 (100 mg Medical capsule 00 :00 total) by Center mouth 2 (two) times daily for 30 days. allopurinoL 2022-0 2023- No 100mg Q.5D Take [address] (ZYLOPRIM) 07-18 tablet [facility] 100 MG 00:00: 00:00 (100 mg Medical tablet 00 :00 total) by Center mouth 2 (two) times daily. doxycycline 2022-0 2023- No 100mg Q.5D Take [address] (MONODOX) 07-18 capsule [facility] 100 MG 00:00: 00:00 (100 mg Medical capsule 00 :00 total) by Center mouth 2 (two) times daily for 30 days. allopurinoL 2022-0 2023- No 100mg Q.5D Take [address] (ZYLOPRIM) 07-18 tablet [facility] 100 MG 00:00: 00:00 (100 mg Medical tablet 00 :00 total) by Center mouth 2 (two) times daily. doxycycline 2022-0 2023- No 100mg Q.5D Take [address] (MONODOX) 07-18 capsule [facility] 100 MG 00:00: 00:00 (100 mg Medical capsule 00 :00 total) by Center mouth 2 (two) times daily for 30 days. allopurinoL 3-0 2023- No 100mg Q.5D Take [address] (ZYLOPRIM) 07-18 tablet [facility] 100 MG 00:00: 00:00 (100 mg Medical tablet 00 :00 total) by Center mouth 2 (two) times daily. doxycycline 3-0 2023- No 100mg Q.5D Take [address] (MONODOX) 07-18 capsule [facility] 100 MG 00:00: 00:00 (100 mg Medical capsule 00 :00 total) by Center mouth 2 (two) times daily for 30 days. allopurinoL 3-0 2023- No 100mg Q.5D Take 1 CH I [...] 40 mg 00 First dose Medical on Sat Branch 06/25/22 at 0900, Until Discontinu ed, Routine NaCl 0.9% 2021-07 Yes 1000mL at 125 Univ ers (NS) IV 2-19 mL/hr, IV ity of infusion 07:45: [place]fusion, [place] 1,000 mL 00 CONTINUOUS Medic al , Starting Branch on Sat06/25/22 at 0145, Until Discontinu ed, Routine morpHINE (2 2021-07 Yes 2mg 2 mg, Slow Univers mg/mL) 2-19 IV Push, ity of injection 2 06:33: Q4HPRN, [place] mg 12 Starting Medical on Sat Branch 06/25/22 at 0033, Until Discontinu ed, Routine, Pain (scale 7-10) ondansetron 2021-07 Yes 4mg 4 mg, Slow Univers (ZOFRAN 08-26 IV Push, ity of (PF)) 06:31: Q6HPRN, [place] injection 4 39 Starting Medi jd mg on Sat [place] 06/25/22 at 0031, Until Discontinu ed, Routine, Nausea and Vomiting (N/V) traMADoL 2021-07- Yes 50mg 50 mg, Univer s (ULTRAM) 08-26 Oral, ity of tablet 50 06:31: 06:30 Q8HPRN, [place] mg 32 :32 Starting Medical on Sat [place] 06/25/22 at 0031, Until Sat06/27/22 at 0030, Routine, Pain (scale 4-6) acetaminoph 2021-07 Yes 650mg 650 mg, Un gadiel en 08-26 Oral, ity of (TYLENOL) 06:31: Q6HPRN, [place] tablet 650 28 Starting Medic al mg on Sat [place] 06/25/22 at 0031, Until Discontinu ed, Routine, Pain (scale 1-3) busPIRone 2021-07 Yes 5mg 5 mg, Univers (BUSPAR) 08-26 Oral, ity of tablet 5 mg 06:29: BIDPRN, [place] as 37 Starting Medical on [facility] 06/25/22 at 0029, Until Discontinu ed, Routine, anxiety cefTRIAXone 2021-07- No 1000mg 1,000 mg, Univers (ROCEPHIN) 08-26 Slow IV ity o f injection 05:15: 16:24 Push, Q24H [place] 1,000 mg 00 :05 ABX, First Medic al dose on [facility] 06/24/22 at 2315, Until Discontinu ed, ISABELA<br&gt ;Reason for Anti-Infec tive: Empiric Therapy for Suspected Infection< br>Empiric Therapy Site: Urine
D uration of therapy: 72 hours NaCl 0.9% 2021-07- No 1000mL at 999 Uni vers (NS) bolus 08-26 mL/hr, ity of infusion 05:15: 06:15 1,000 mL, [place] as 1,000 mL 00 :00 [facility], [facility] dose, On [place] 06/24/22 at 2315, STAT ondansetron 2021-07 No 4mg 4 mg, Slow Univers (ZOFRAN 08-26 IV Push, ity of (PF)) 04:45: 04:32 ONCE, 1 [place] injection 4 00 :00 dose, On Medi jd mg [facility] 06/24/22 at 2245, ISABELA morpHINE (4 2021-07 No 4mg 4 mg, Slow Univers mg/mL) 08-26 IV Push, ity of injection 4 04:45: 04:32 ONCE, 1 [place] mg 00 :00 dose, On Medical [facility] 06/24/22 at 2245, STAT iopamidol 2021-07 No [id number] 140mL 140 mL, Univers (ISOVUE 08-26 Intravenou ity o f 370-500 mL) 03:45: 03:45 s, ONCE, 1 [place] injection 00 :00 dose, On Medica l 140 mL [facility] 06/24/22 at 2145, Routine ondansetron 2021-07 No 4mg 4 mg, Slow Univers (ZOFRAN 08-26 IV Push, ity of (PF)) 03:00: 02:46 ONCE, 1 [place] injection 4 00 :00 dose, On Medi jd mg [facility] 06/24/22 at 2100, Routine acetaminoph 2021-07 No 650mg 650 mg, U nivers en 08-26 Oral, ity of (TYLENOL) 02:30: 02:54 ONCE, 1 [place] tablet 650 00 :00 dose, On Medic al mg [facility] 06/24/22 at 2030, ISABELA amoxicillin 2021-07- No 1{tbl} Q.5D Take [address] -clavulanat 08-26 tablet by Nora russo 00:00: 00:00 mouth 2 Medical (AUGMENTIN) 00 :00 (two) [place] 875-125 mg times per tablet daily. amoxicillin 2021-07- No 1{tbl} Q.5D Take [address] -clavulanat 08-26 tablet by Nora rand e 00:00: 00:00 mouth 2 Medical (AUGMENTIN) 00 :00 (two) [place] 875-125 mg times per tablet daily. amoxicillin 2021-07- No 1{tbl} Q.5D Take [address] -clavulanat 2-19 - tablet by Nora kes e 00:00: 00:00 mouth 2 Medical (AUGMENTIN) 00 :00 (two) Center 875-125 mg times per tablet daily. amoxicillin 2021-07- No 1{tbl} Q.5D Take [address] -clavulanat 2-19 - tablet by Nora kes e 00:00: 00:00 mouth 2 Medical (AUGMENTIN) 00 :00 (two) Center 875-125 mg times per tablet daily. amoxicillin 2021-07- No 1{tbl} Q.5D Take [address] -clavulanat 2-19 - tablet by Nora kes e 00:00: 00:00 mouth 2 Medical (AUGMENTIN) 00 :00 (two) Center 875-125 mg times per tablet daily. amoxicillin 2021-07- Yes [id number] 1{tbl} Take 1 Univers -clavulanat 2-19 12-27 tablet by it y of e 00:00: 05:59 mouth in [place] (AUGMENTIN) 00 :00 the Medical 875-125 mg morning Branch per tablet and 1 tablet in the evening. Do all this for 7 days. amoxicillin 2021-07- Yes [id number] 1{tbl} Take 1 Univers -clavulanat 2-19 12-27 tablet by it y of e 00:00: 05:59 mouth in [place] (AUGMENTIN) 00 :00 the Medical 875-125 mg [...] Take [address] -clavulanat 2-19 12-26 tablet by Nora kes e 00:00: 23:59 mouth 2 Medical (AUGMENTIN) 00 :00 (two) Center 875-125 mg times per tablet daily. amoxicillin 2021-07- No 1{tbl} Q.5D Take [address] -clavulanat 08-26 tablet by Nora rand e 00:00: 23:59 mouth 2 Medical (AUGMENTIN) 00 :00 (two) Center 875-125 mg times per tablet daily. doxycycline 2021-07- Yes [id number] 100mg Take 1 Univers hyclate 100 08-25 [...] Routine, Pain (scale 7-10) levoFLOXaci 2021-07- Yes [id number] 750mg Take 1 Univers n 750 mg 08-15 tablet by ity o f tablet 00:00: 05:59 mouth [place] 00 :00 every 24 Medical ([facility]) hours for 5 days. levoFLOXaci 2021-07- Yes [id number] 750mg Take 1 Univers n 750 mg 08-15 tablet by ity o f tablet 00:00: 05:59 mouth [place] 00 :00 every 24 Medical ([facility]) hours for 5 days. morpHINE (4 2021-07- No 4mg 4 mg, Slow Univers mg/mL) 08-14 IV Push, ity of injection 4 07:41: 07:40 Q4HPRN, [place] mg 51 :51 Starting Medical on Sat Branch 06/13/22 at 0141, Until Sat06/14/22 at 0140, Routine, Pain (scale 7-10) cefTRIAXone 2021-07- Yes 1000mg 1,000 mg, Univers (ROCEPHIN) 08-14- IV ity of 1,000 mg in 05:00: 04:59 Piggyback, [place] NaCl 0.9% 00 :00 Q24H ABX, Medic al (NS) 50 mL 6 doses, Branc h MINI-BAG First dose on Sat06/12/22 at 2300, Last dose on Sat06/17/22 at 2300, Administer over 30 Minutes, 50 mL
Reas on for Anti-Infec tive: Documented Infection< br>Documen brook Infection Site: Urine
D uration of Therapy: 7 days enoxaparin 2021-07 Yes 40mg 40 mg, Unive rs (LOVENOX) 206 Subcutaneo ity of injection 23:00: [place], DAILY, [place] 40 mg 00 First dose Medical on [facility] 06/12/22 at 1700, Until Discontinu ed, Routine NaCl 0.9% 2021-07 No 1000mL at 125 Uni vers (NS) IV 08-13 12-07 mL/hr, IV ity of infusion 07:15: 20:01 Infusion, [place] 1,000 mL 00 :29 CONTINUOUS Medic al , Starting Branch on Sat06/12/22 at 0115, Until Sat06/13/22 at 1401, Routine ondansetron 2021-07 Yes 4mg 4 mg, Slow Univers (ZOFRAN 08-13 IV Push, ity of (PF)) 07:09: Q6HPRN, [place] injection 4 06 Starting Medi jd mg on [facility] 06/12/22 at 0109, Until Discontinu ed, Routine, Nausea and Vomiting (N/V) morpHINE (4 2021-07 No 4mg 4 mg, Slow Univers mg/mL) 08-13 12-07 IV Push, ity of injection 4 07:09: 07:08 Q4HPRN, [place] mg 03 :03 Starting Medical on Sat06/12/22 at 0109, Until Sat06/13/22 at 0108, Routine, Pain (scale 7-10) HYDROcodone 2021-07 No 1{tbl} 1 tablet, Univers -acetaminop 2 12-08 Oral, ity of hen (NORCO 07:09: 07:08 Q6HPRN, [place] 5) 5-325 mg 01 :01 Starting Medi jd tablet 1 on [facility] tablet 06/12/22 at 0109, Until Gita 06/14/22 at 0108, Routine, Pain (scale 4-6) acetaminoph 2021-07 Yes 650mg 650 mg, Un gadiel en 08-13 Oral, ity of (TYLENOL) 07:08: Q6HPR, [place] tablet 650 55 Starting Medic al mg on [facility] 06/12/22 at 0108, Until Discontinu ed, Routine, Pain (scale 1-3), Temp > 38.5 C busPIRone 2021-07 Yes 5mg 5 mg, Univers (BUSPAR) 2 Oral, ity of tablet 5 mg 07:06: BIDPRN, [place] 03 Starting Medical on [facility] 06/12/22 at 0106, Until Discontinu ed, Routine, anxiety NaCl 0.9% 2021-07- No 1000mL at 999 Uni vers (NS) bolus 08-13 mL/hr, ity of infusion 07:00: 07:11 1,000 mL, [place] 1,000 mL 00 :00 IV Medical Infusion, Branch ONCE, 1 dose, On Sat06/12/22 at 0100, STAT FENTanyl PF 2021-07- No 50ug 50 mcg, Un gadiel (SUBLIMAZE 08-13 Slow IV ity o f (PF)) 07:00: 06:04 Push, [place] injection 00 :00 ONCE, 1 Medical 50 mcg dose, On Branch Sat06/12/22 at 0100, Routine NaCl 0.9% 2021-07- No 1000mL at 999 Uni vers (NS) bolus 08-13 mL/hr, ity of infusion 04:45: 06:10 1,000 mL, [place] 1,000 mL 00 :00 IV Medical Infusion, Branch ONCE, 1 dose, On Sat06/11/22 at 2245, STAT cefTRIAXone 2021-07- No 1000mg 1,000 mg, Univers (ROCEPHIN) 08-13-06 IV ity of 1,000 mg in 04:45: 05:19 Piggyback, [place] NaCl 0.9% 00 :00 ONCE, 1 Medical (NS) 50 mL dose, On Bran h MINI-BAG Sat06/11/22 at 2245, Administer over 30 Minutes, 50 mL
Reas on for Anti-Infec tive: Documented Infection< br>Documen brook Infection Site: Urine<br&g t;Duration of Therapy: 7 days busPIRone 2021-07 Yes 5mg Q.5D Take [address] [facility] (BUSPAR) 5 1-30 by mouth 2 [facility] es MG tablet 00:00: (two) [facility] 00 times Center daily. busPIRone 2021-07 Yes 5mg Q.5D Take [address] [facility] (BUSPAR) 5 1-30 by mouth 2 [place] es MG tablet 00:00: ([facility]) [facility] 00 times Center daily. busPIRone 2021-07 Yes 5mg Q.5D Take [address] [facility] (BUSPAR) 5 1-30 by mouth 2 [place] es MG tablet 00:00: ([facility]) [facility] 00 times [place] daily. busPIRone 2021-07 Yes 5mg Q.5D Take [address] [facility] (BUSPAR) 5 1-30 by mouth 2 [place] es MG tablet 00:00: ([facility]) [facility] 00 times [place] daily. busPIRone 2021-07 Yes 5mg Q.5D Take [address] [facility] (BUSPAR) 5 1-30 by mouth 2 [place] es MG tablet 00:00: ([facility]) [facility] 00 times [place] daily. busPIRone 2021-07 Yes 5mg Q.5D Take [address] [facility] (BUSPAR) 5 1-30 by mouth 2 [place] es MG tablet 00:00: ([facility]) [facility] 00 times [place] daily. busPIRone 2021-07 Yes 5mg Q.5D Take [address] [facility] (BUSPAR) 5 1-30 by mouth 2 [place] es MG tablet 00:00: ([facility]) [facility] 00 times Center daily. busPIRone 2021-07 Yes 5mg Q.5D Take [address] [facility] (BUSPAR) 5 1-30 by mouth 2 Jennifer es MG tablet 00:00: ([facility]) [facility] 00 times [place] daily. diclofenac 2021-07 Yes [id number] Take 1 tab [facility] 75 mg EC 1-30 po daily ity of tablet 00:00: as needed [place] 00 for pain Medical not Branch relieved by tylenol. Take with food. busPIRone 5 2021-07 Yes [id number] 5mg Take 1 [facility] mg tablet 1-30 tablet by ity o f 00:00: mouth 2 [place] (two) Medical times Branch daily as needed (anxiety). diclofenac 2021-07 Yes [id number] Take 1 tab [facility] 75 mg EC 1-30 po daily ity of tablet 00:00: as needed [place] 00 for pain Medical not Branch relieved by tylenol. Take with food. busPIRone 5 2021-07 Yes [id number] 5mg Take 1 [facility] mg tablet 1-30 tablet by ity o f 00:00: mouth 2 [place] (two) Medical times Branch daily as needed (anxiety). diclofenac 2021-07 Yes [id number] Take 1 tab [facility] 75 mg EC 1-30 po daily ity of tablet 00:00: as needed [place] 00 for pain Medical not Branch relieved by tylenol. Take with food. busPIRone 2021-07 Yes [id number] 5mg Take 1 [facility] mg tablet 1-30 tablet by ity o f 00:00: mouth 2 [place] (two) Medical times Branch daily as needed (anxiety). diclofenac 2021-07 Yes [id number] Take 1 tab [facility] 75 mg EC 1-30 po daily ity of tablet 00:00: as needed [place] 00 for pain Medical not Branch relieved by tylenol. Take with food. busPIRone 2021-07 Yes [id number] 5mg Take 1 [facility] mg tablet 1-30 tablet by ity o f 00:00: mouth 2 (two) Medical times Branch daily as needed (anxiety). diclofenac 2021-07 Yes [id number] Take 1 tab [facility] 75 mg EC 1-30 po daily ity of tablet 00:00: as needed [place] 00 for pain Medical not Branch relieved by tylenol. Take with food. busPIRone 2021-07 Yes [id number] 5mg Take 1 [facility] mg tablet 1-30 tablet by ity o f 00:00: mouth 2 [place] 00 (two) Medical times Branch daily as needed (anxiety). diclofenac 2021-07 Yes [id number] Take 1 tab [facility] 75 mg EC 1-30 po daily ity of tablet 00:00: as needed [place] 00 for pain Medical not Branch relieved by tylenol. Take with food. busPIRone 5 2021-07 Yes [id number] 5mg Take 1 [facility] mg tablet 1-30 tablet by ity o f 00:00: mouth 2 [place] 00 (two) Medical times Branch daily as needed (anxiety). diclofenac 2021-07 Yes [id number] Take 1 tab [facility] 75 mg EC 1-30 po daily ity of tablet 00:00: as needed [place] 00 for pain Medical not Branch relieved by tylenol. Take with food. busPIRone 5 2021-07 Yes [id number] 5mg Take 1 [facility] mg tablet 1-30 tablet by ity o f 00:00: mouth 2 [place] 00 (two) Medical times Branch daily as needed (anxiety). diclofenac 2021-07 Yes [id number] Take 1 tab [facility] 75 mg EC 1-30 po daily ity of tablet 00:00: as needed [place] 00 for pain Medical not Branch relieved by tylenol. Take with food. busPIRone 5 2021-07 Yes [id number] 5mg Take 1 [facility] mg tablet 1-30 tablet by ity o f 00:00: mouth 2 [place] 00 (two) Medical times Branch daily as needed (anxiety). diclofenac 2021-07 Yes [id number] Take 1 tab [facility] 75 mg EC 1-30 po daily ity of tablet 00:00: as needed [place] 00 for pain Medical not Branch relieved by tylenol. Take with food. busPIRone 2021-07 Yes [id number] 5mg Take 1 [facility] mg tablet 1-30 tablet by ity o f 00:00: mouth 2 [place] 00 (two) Medical times Branch daily as needed (anxiety). diclofenac 2021-07 Yes [id number] Take 1 tab [facility] 75 mg EC 1-30 po daily ity of tablet 00:00: as needed [place] 00 for pain Medical not Branch relieved by tylenol. Take with food. busPIRone 2021-07 Yes [id number] 5mg Take 1 [facility] mg tablet 1-30 tablet by ity o f 00:00: mouth 2 [place] 00 (two) Medical times Branch daily as needed (anxiety). diclofenac 2021-07 Yes [id number] Take 1 tab [facility] 75 mg EC 1-30 po daily ity of tablet 00:00: as needed [place] 00 for pain Medical not Branch relieved by tylenol. Take with food. busPIRone 5 2021-07 Yes [id number] 5mg Take 1 [facility] mg tablet 1-30 tablet by ity o f 00:00: mouth 2 [place] 00 (two) Medical times Branch daily as needed (anxiety). diclofenac 2021-07 Yes [id number] Take 1 tab [facility] 75 mg EC 1-30 po daily ity of tablet 00:00: as needed [place] 00 for pain Medical not Branch relieved by tylenol. Take with food. busPIRone 5 2021-07 Yes [id number] 5mg Take 1 [facility] mg tablet 1-30 tablet by ity o f 00:00: mouth 2 [place] 00 (two) Medical times Branch daily as needed (anxiety). diclofenac 2021-07 Yes [id number] Take 1 tab [facility] 75 mg EC 1-30 po daily ity of tablet 00:00: as needed [place] 00 for pain Medical not Branch relieved by tylenol. Take with food. busPIRone 5 2021-07 Yes [id number] 5mg Take 1 [facility] mg tablet 1-30 tablet by ity o f 00:00: mouth 2 [place] 00 (two) Medical times Branch daily as needed (anxiety). diclofenac 2021-07 Yes [id number] Take 1 tab [facility] 75 mg EC 1-30 po daily ity of tablet 00:00: as needed [place] 00 for pain Medical not Branch relieved by tylenol. Take with food. busPIRone 2021-07 Yes [id number] 5mg Take 1 [facility] mg tablet 1-30 tablet by ity o f 00:00: mouth 2 [place] 00 (two) Medical times Branch daily as needed (anxiety). diclofenac 2021-07 Yes [id number] Take 1 tab [facility] 75 mg EC 1-30 po daily ity of tablet 00:00: as needed [place] 00 for pain Medical not Branch relieved by tylenol. Take with food. busPIRone 5 2021-07 Yes [id number] 5mg Take 1 [facility] mg tablet 1-30 tablet by ity o f 00:00: mouth 2 [place] 00 (two) Medical times Branch daily as needed (anxiety). diclofenac 2021-07 Yes [id number] Take 1 tab [facility] 75 mg EC 1-30 po daily ity of tablet 00:00: as needed [place] 00 for pain Medical not Branch relieved by tylenol. Take with food. busPIRone 5 2021-07 Yes [id number] 5mg Take 1 [facility] mg tablet 1-30 tablet by ity o f 00:00: mouth 2 [place] 00 (two) Medical times Branch daily as needed (anxiety). famotidine 2021-07 Yes TAKE 1 Unive rs 20 mg 1-18 TABLET BY ity of tablet 00:00: MOUTH [place] 00 EVERY 12 Medical HOURS FOR Branch 14 DAYS diclofenac 2021-07 Yes 75mg Take 75 mg U nivers 75 mg EC 1-18 by mouth ity of tablet 00:00: in the [place] 00 morning Medical and 75 mg Branch in the evening. famotidine 2021-07 Yes TAKE 1 Unive rs 20 mg 1-18 TABLET BY ity of tablet 00:00: MOUTH [place] 00 EVERY 12 Medical HOURS FOR Branch 14 DAYS diclofenac 2021-07 Yes 75mg Take 75 mg U nivers 75 mg EC 1-18 by mouth ity of tablet 00:00: in the [place] 00 morning Medical and 75 mg Branch in the evening. famotidine 2021-07 Yes TAKE 1 Unive rs 20 mg 1-18 TABLET BY ity of tablet 00:00: MOUTH [place] 00 EVERY 12 Medical HOURS FOR Branch 14 DAYS famotidine 2021-07 Yes TAKE 1 Unive rs 20 mg 1-18 TABLET BY ity of tablet 00:00: MOUTH [place] 00 EVERY 12 Medical HOURS FOR Branch 14 DAYS famotidine 2021-07 Yes TAKE 1 Unive rs 20 mg 1-18 TABLET BY ity of tablet 00:00: MOUTH [place] 00 EVERY 12 Medical HOURS FOR Branch 14 DAYS famotidine 2021-07 Yes TAKE 1 Unive rs 20 mg 1-18 TABLET BY ity of tablet 00:00: MOUTH [place] 00 EVERY 12 Medical HOURS FOR Branch 14 DAYS famotidine 2021-07- No TAKE 1 Univ ers 20 mg 1-18 12-06 TABLET BY ity of tablet 00:00: 00:00 MOUTH [place] 00 :00 EVERY 12 Medical HOURS FOR Branch 14 DAYS diclofenac 2021-07- No 75mg Take 75 mg [facility] 75 mg EC 1-18 11-30 by mouth ity of tablet 00:00: 00:00 in the [place] 00 :00 morning Medical and 75 mg Branch in the evening. diclofenac 2021-07 No 75mg Take 75 mg [facility] 75 mg EC 1-18 11-30 by mouth ity of tablet 00:00: 00:00 in the [place] 00 :00 morning Medical and 75 mg Branch in the evening. NaCl 0.9% 2021-07 No 30mL/kg at 999 Un gadiel (NS) bolus 0-28 10-28 mL/hr, ity of infusion 08:45: 09:50 3,498 mL [place] 3,498 mL 00 :00 (30 mL/kg Medica l ?116.6 Branch kg), IV Infusion, ONCE, 1 dose, On Sat05/04/22 at 0345, STAT iopamidol 2021-07- No [id number] 100mL 100 mL, Univers (ISOVUE 005-04 Intravenou ity o f 370-500 mL) 08:15: 08:15 s, ONCE, 1 [place] injection 00 :00 dose, On Medica l 100 mL Sat Branch 05/04/22 at 0315, Routine cefTRIAXone 2021-07- No 1000mg 1,000 mg, Univers (ROCEPHIN) 005-04 IV ity of 1,000 mg in 07:45: 08:29 Piggyback, [place] NaCl 0.9% 00 :00 ONCE, 1 Medical (NS) 50 mL dose, On Bran h MINI-BAG Sat05/04/22 at 0245, Administer over 30 Minutes, 50 mL
Reas on for Anti-Infec tive: Documented Infection< br>Documen brook Infection Site: Urine<br&g t;Duration of Therapy: Other (see Comments) ondansetron 2021-07- No 4mg 4 mg, Slow [facility] (ZOFRAN 0- IV Push, ity of (PF)) 06:45: 07:01 ONCE, 1 [place] injection 4 00 :00 dose, On Medi jd mg Sat Branch 05/04/22 at 0145, ISABELA morpHINE (4 [...] Indication s: acute pain ondansetron 2021-07 Yes [id number] 1 or 2 [facility] 4 mg tablet 0-28 tablets ity o f 00:00: every 6 [place] 00 hours as Medical needed for Branch nausea traMADoL 50 2021-07 Yes [id number] 50mg Take 1 Univ ers mg tablet 0-28 tablet by ity o f 00:00: mouth [place] 00 every 6 Medical (six) Branch hours as needed (pain). Indication s: acute pain ondansetron 2021-07 Yes [id number] 1 or 2 Univers 4 mg tablet 0-28 tablets ity o f 00:00: every 6 [place] 00 hours as Medical needed for Branch nausea traMADoL 50 2021-07 Yes [id number] 50mg Take 1 Univ ers mg tablet 0-28 tablet by ity o f 00:00: mouth [place] 00 every 6 Medical (six) Branch hours as needed (pain). Indication s: acute pain ondansetron 2021-07 Yes [id number] 1 or 2 Univers 4 mg tablet 0-28 tablets ity o f 00:00: every 6 [place] 00 hours as Medical needed for Branch nausea traMADoL 50 2021-07 Yes [id number] 50mg Take 1 Univ ers mg tablet 0-28 tablet by ity o f 00:00: mouth [place] 00 every 6 Medical (six) Branch hours as needed (pain). Indication s: acute pain ondansetron 2021-07 Yes [id number] 1 or 2 Univers 4 mg tablet 0-28 tablets ity o f 00:00: every 6 [place] 00 hours as Medical needed for Branch nausea traMADoL 50 2021-07 Yes [id number] 50mg Take 1 Univ ers mg tablet 0-28 tablet by ity o f 00:00: mouth [place] 00 every 6 Medical (six) Branch hours as needed (pain). Indication s: acute pain ondansetron 2021-07 Yes [id number] 1 or 2 [facility] 4 mg tablet 0-28 tablets ity o f 00:00: every 6 [place] 00 hours as Medical needed for Branch nausea traMADoL 50 2021-07 Yes [id number] 50mg Take 1 Univ ers mg tablet 0-28 tablet by ity o f 00:00: mouth [place] 00 every 6 Medical (six) Branch hours as needed (pain). Indication s: acute pain ondansetron 2021-07 Yes [id number] 1 or 2 Univers 4 mg tablet 0-28 tablets ity o f 00:00: every 6 [place] 00 hours as Medical needed for Branch nausea traMADoL 50 2021-07 Yes [id number] 50mg Take 1 Univ ers mg tablet 0-28 tablet by ity o f 00:00: mouth [place] 00 every 6 Medical (six) Branch hours as needed (pain). Indication s: acute pain ondansetron 2021-07 Yes [id number] 1 or 2 Univers 4 mg tablet 0-28 tablets ity o f 00:00: every 6 [place] 00 hours as Medical needed for Branch nausea traMADoL 50 2021-07 Yes [id number] 50mg Take 1 Univ ers mg tablet 0-28 tablet by ity o f 00:00: mouth [place] 00 every 6 Medical (six) Branch hours as needed (pain). Indication s: acute pain ondansetron 2021-07 Yes [id number] 1 or 2 [facility] 4 mg tablet 0-28 tablets ity o f 00:00: every 6 [place] 00 hours as Medical needed for Branch nausea traMADoL 50 2021-07 Yes [id number] 50mg Take 1 Univ ers mg tablet 0-28 tablet by ity o f 00:00: mouth [place] 00 every 6 Medical (six) Branch hours as needed (pain). Indication s: acute pain ondansetron 2021-07 Yes [id number] 1 or 2 Univers 4 mg tablet 0-28 tablets ity o f 00:00: every 6 [place] 00 hours as Medical needed for Branch nausea traMADoL 50 2021-07 Yes [id number] 50mg Take 1 Univ ers mg tablet 0-28 tablet by ity o f 00:00: mouth [place] 00 every 6 Medical (six) Branch hours as needed (pain). Indication s: acute pain ondansetron 2021-07 Yes [id number] 1 or 2 Univers 4 mg tablet 0-28 tablets ity o f 00:00: every 6 [place] 00 hours as Medical needed for Branch nausea traMADoL 50 2021-07 Yes [id number] 50mg Take 1 Univ ers mg tablet 0-28 tablet by ity o f 00:00: mouth [place] 00 every 6 Medical (six) Branch hours as needed (pain). Indication s: acute pain ondansetron 2021-07 Yes [id number] 1 or 2 Univers 4 mg tablet 0-28 tablets ity o f 00:00: every 6 [place] 00 hours as Medical needed for Branch nausea traMADoL 50 2021-07 Yes [id number] 50mg Take 1 Univ ers mg tablet 0-28 tablet by ity o f 00:00: mouth [place] 00 every 6 Medical (six) Branch hours as needed (pain). Indication s: acute pain ondansetron 2021-07 Yes [id number] 1 or 2 Univers 4 mg tablet 0-28 tablets ity o f 00:00: every 6 [place] 00 hours as Medical needed for Branch nausea traMADoL 50 2021-07 Yes [id number] 50mg Take 1 Univ ers mg tablet 0-28 tablet by ity o f 00:00: mouth [place] 00 every 6 Medical (six) Branch hours as needed (pain). Indication s: acute pain ondansetron 2021-07 Yes [id number] 1 or 2 [facility] 4 mg tablet 0-28 tablets ity o f 00:00: every 6 [place] 00 hours as Medical needed for Branch nausea traMADoL 50 2021-07 Yes [id number] 50mg Take 1 Univ ers mg tablet 0-28 tablet by ity o f 00:00: mouth [place] 00 every 6 Medical (six) Branch hours as needed (pain). Indication s: acute pain ondansetron 2021-07 Yes [id number] 1 or 2 [facility] 4 mg tablet 0-28 tablets ity o f 00:00: every 6 [place] 00 hours as Medical needed for Branch nausea traMADoL 50 2021-07 Yes [id number] 50mg Take 1 Univ ers mg tablet 0-28 tablet by ity o f 00:00: mouth [place] 00 every 6 Medical (six) Branch hours as needed (pain). Indication s: acute pain ondansetron 2021-07 Yes [id number] 1 or 2 Univers 4 mg tablet [...] Indication s: acute pain ondansetron 2021-07- No [id number] 1 or 2 Univers 4 mg tablet 0-28 12-06 tablets ity of 00:00: 00:00 every 6 [place] 00 :00 hours as Medical needed for Branch nausea cefdinir 2021-07- No [id number] 300mg Take 1 U nivers 300 mg 0-28 11-08 capsule by ity of capsule 00:00: 05:59 mouth [place] 00 :00 every 12 Medical (twelve) Branch hours for 10 days. cefdinir 2021-07- No [id number] 300mg Take 1 U nivers 300 mg 0-28 11-08 capsule by ity of capsule 00:00: 05:59 mouth [place] 00 :00 every 12 Medical (twelve) Branch hours for 10 days. cefdinir 2021-07- No [id number] 300mg Take 1 U nivers 300 mg 0-28 11-08 capsule by ity of capsule 00:00: 05:59 mouth [place] 00 :00 every 12 Medical (twelve) Branch hours for 10 days. cefdinir 2021-07- No [id number] 300mg Take 1 U nivers 300 mg 0-28 11-08 capsule by ity of capsule 00:00: 05:59 mouth [place] 00 :00 every 12 Medical (twelve) Branch hours for 10 days. cefdinir 2021-07- No [id number] 300mg Take 1 U nivers 300 mg 0-04 06-08 capsule by ity of capsule 00:00: 05:59 mouth [place] 00 :00 every 12 Medical (twelve) Branch hours for 10 days. cefdinir 2021-07- No [id number] 300mg Take 1 U nivers 300 mg 0-08 capsule by ity of capsule 00:00: 05:59 mouth [place] 00 :00 every 12 Medical (twelve) Branch hours for 10 days. ciprofloxac 2021-07 No 500mg 500 mg, U nivers in HCl 04-28 Oral, ity of (CIPRO) 23:00: 22:59 Q12HA2, 12 [place] as tablet 500 00 :00 doses, Medical mg First dose Branch on 04/22/22 at 1800, Last dose on 04/28/22 at 0600, ISABELA
Re ason for Anti-Infec tive: Documented Infection< br>Documen brook Infection Site: Blood
D uration of Therapy: 7 days KCL 2021-07- No 40meq 40 mEq, [facility] (KLOR-CON 0-16 -16 Oral, ity of M20) tablet 14:00: 15:03 [...] Routine, Pain (scale 4-6) sodium 2021-07 Yes [id number] Apply to Univers hypochlorit 0-16 [id number] area(s) 2 i ty of e 0.25% 00:00: (two) [place] solution 00 times Medical daily. Branch sodium 2021-07 Yes [id number] Apply to Univers hypochlorit 0-16 [id number] area(s) 2 i ty of e 0.25% 00:00: (two) [place] solution 00 times Medical daily. Branch sodium 2021-07 Yes [id number] Apply to Univers hypochlorit 0-16 [id number] area(s) 2 i ty of e 0.25% 00:00: (two) [place] solution 00 times Medical daily. Branch sodium 2021-07 Yes [id number] Apply to Univers hypochlorit 0-16 [id number] area(s) 2 i ty of e 0.25% 00:00: (two) [place] solution 00 times Medical daily. Branch sodium 2021-07 Yes [id number] Apply to Univers hypochlorit 0-16 [id number] area(s) 2 i ty of e 0.25% 00:00: (two) [place] solution 00 times Medical daily. Branch sodium 2021-07 Yes [id number] Apply to Univers hypochlorit 0-16 [id number] area(s) 2 i ty of e 0.25% 00:00: (two) [place] solution 00 times Medical daily. Branch sodium 2021-07 Yes [id number] Apply to Univers hypochlorit 0-16 [id number] area(s) 2 i ty of e 0.25% 00:00: (two) [place] solution 00 times Medical daily. Branch sodium 2021-07 Yes [id number] Apply to Univers hypochlorit 0-16 [id number] area(s) 2 i ty of e 0.25% 00:00: (two) [place] solution 00 times Medical daily. Branch sodium 2021-07 Yes [id number] Apply to Univers hypochlorit 0-16 [id number] area(s) 2 i ty of e 0.25% 00:00: (two) [place] solution 00 times Medical daily. Branch sodium 2021-07 Yes [id number] Apply to Univers hypochlorit 0-16 [id number] area(s) 2 i ty of e 0.25% 00:00: (two) [place] solution 00 times Medical daily. Branch sodium 2021-07 Yes [id number] Apply to Univers hypochlorit 0-16 [id number] area(s) 2 i ty of e 0.25% 00:00: (two) [place] solution 00 times Medical daily. Branch sodium 2021-07 Yes [id number] Apply to Univers hypochlorit 0-16 [id number] area(s) 2 i ty of e 0.25% 00:00: (two) [place] solution 00 times Medical daily. Branch sodium 2021-07 Yes [id number] Apply to Univers hypochlorit 0-16 [id number] area(s) 2 i ty of e 0.25% 00:00: (two) [place] solution 00 times Medical daily. Branch sodium 2021-07 Yes [id number] Apply to Univers hypochlorit 0-16 [id number] area(s) 2 i ty of e 0.25% 00:00: (two) [place] solution 00 times Medical daily. Branch sodium 2021-07 Yes [id number] Apply to Univers hypochlorit 0-16 [id number] area(s) 2 i ty of e 0.25% 00:00: (two) [place] solution 00 times Medical daily. Branch sodium 2021-07 Yes [id number] Apply to Univers hypochlorit 0-16 [id number] area(s) 2 i ty of e 0.25% 00:00: (two) [place] solution 00 times Medical daily. Branch sodium 2021-07 Yes [id number] Apply to Univers hypochlorit 0-16 [id number] area(s) 2 i ty of e 0.25% 00:00: (two) [place] solution 00 times Medical daily. Branch sodium 2021-07 Yes [id number] Apply to Univers hypochlorit 0-16 [id number] area(s) 2 i ty of e 0.25% 00:00: (two) [place] solution 00 times Medical daily. Branch sodium 2021-07 Yes [id number] Apply to Univers hypochlorit 0-16 [id number] area(s) 2 i ty of e 0.25% 00:00: (two) [place] solution 00 times Medical daily. Branch sodium 2021-07 Yes [id number] Apply to Univers hypochlorit 0-16 [id number] area(s) 2 i ty of e 0.25% 00:00: (two) [place] solution 00 times Medical daily. Branch sodium 2021-07 Yes [id number] Apply to Univers hypochlorit 0-16 [id number] area(s) 2 i ty of e 0.25% 00:00: (two) [place] solution 00 times Medical daily. Branch sodium 2021-07- No [id number] Apply to Univers hypochlorit 0-16 12-06 [id number] area(s) 2 ity of e 0.25% 00:00: 00:00 (two) [place] solution 00 :00 times Medical daily. [place] ciprofloxac 2021-07- No [id number] 500mg Take 1 Univers in HCl 500 0-16 10-24 tablet by ity of mg tablet 00:00: 04:59 mouth [place] 00 :00 every 12 Medical (twelve) Branch hours for 7 days. ciprofloxac 2021-07- No [id number] 500mg Take 1 Univers in HCl 500 0-16 10-24 tablet by ity of mg tablet 00:00: 04:59 mouth [place] 00 :00 every 12 Medical (twelve) Branch hours for 7 days. ciprofloxac 2021-07- No [id number] 500mg Take 1 Univers in HCl 500 0-16 10-24 tablet by ity of mg tablet 00:00: 04:59 mouth [place] 00 :00 every 12 Medical (twelve) Branch hours for 7 days. ceFEPIme 2021-07 No 2000mg 2,000 mg, U nivers (MAXIPIME) 0-14 10-16 IV ity of 2,000 mg in 21:00: 13:14 [place], [place] NaCl 0.9% 00 :32 Q8H ABX, [...] ity of 1,000 mg in 13:00: 13:29 [place], [place] NaCl 0.9% 00 :41 Q8H ABX, [...] No 1000mg 1,000 mg, U nivers (MAXIPIME) 0- 10-14 IV ity of 1,000 mg in 05:15: 05:51 [place], [place] NaCl 0.9% 00 :00 ONCE, 1 [...] On Sat04/20/22 at 0000, STAT vancomycin 2021-07- 15mg/kg 1,500 mg Univers (VANCOCIN) 0-14 15 (rounded ity of 1,500 mg in 04:30: 00:00 from 1,749 [place] NaCl 0.9% 00 :53 mg = 15 Medical (NS) 500 mL mg/kg Branch VIAL-MATE ?116.6 IV kg), IV piggyback Piggyback, Q12H ABX, 28 doses, First dose on [facility] 04/19/22 at 2330, Last dose on Sat05/03/22 at 1130, Administer over 90 Minutes, 500 mL
R ezio for Anti-Infec tive: Documented Infection< br>Documen brook Infection Site: Skin / Soft Tissue
Duration of Therapy: 14 days ALPRAZolam 2021-07 Yes .5mg 0.5 mg, Univ ers (XANAX) 0-14 Oral, ity of tablet 0.5 02:35: QHSPRN, [place] mg 13 Starting Medical on [facility] Branch 04/19/22 at 2135, Until Discontinu ed, Routine, Anxiety, Insomnia sodium 2021-07 Yes Topical, Univers hypochlorit 0-14 BID, First it y of e 0.25% 01:00: dose on [place] (DAKIN'S Sat Medical SOLUTION) 04/19/22 Branch solution at 2000, Until Discontinu ed, Routine ibuprofen 2021-07 Yes 400mg 400 mg, Univ ers (IBU) 0-14 Oral, ity of tablet 400 00:50: Q6HPRN, [place] mg 13 Starting Medical on [facility] Branch 04/19/22 at 1950, Until Discontinu ed, Routine, Temp > 38.5 C enoxaparin 2021-07 Yes 40mg 40 mg, Unive rs (LOVENOX) 0-13 Subcutaneo ity of injection 22:00: [place], [place]ILY, [place] 40 mg 00 First dose Medical on [facility] Branch 04/19/22 at 1700, Until Discontinu ed, Routine NaCl 0.9% 2021-07 Yes 1000mL at 125 Univ ers (NS) IV 0-13 mL/hr, IV ity of infusion 20:45: Infusion, [place] 1,000 mL 00 CONTINUOUS Medic al , Starting Branch on [facility] 04/19/22 at 1545, Until Discontinu ed, Routine ondansetron 2021-07 Yes 4mg 4 mg, Slow [facility] (ZOFRAN 0-13 IV Push, ity of (PF)) 20:34: Q6HPRN, [place] injection 4 03 Starting Medi jd mg on [facility] Branch 04/19/22 at 1534, Until Discontinu ed, Routine, Nausea and Vomiting (N/V) morpHINE (2 2021-07- No 4mg 4 mg, Slow [facility] mg/mL) 0-13 10-14 IV Push, ity of injection 4 20:34: 20:33 Q4HPRN, [place] mg 00 :00 Starting Medical on [facility] Branch 04/19/22 at 1534, Until 04/20/22 at 1533, Routine, Pain (scale 7-10) HYDROcodone 2021-07- No 1{tbl} 1 tablet, Univers -acetaminop 004-21 Oral, ity of hen (NORCO 20:33: 20:32 Q6HPRN, [place] as 5) 5-325 mg 59 :59 Starting Medi jd tablet 1 on [facility] Branch tablet 04/19/22 at 1533, Until 04/21/22 at 1532, Routine, Pain (scale 4-6) acetaminoph 2021-07 Yes 650mg 650 mg, Un gadiel en 0- Oral, ity of (TYLENOL) 20:33: Q6HPRN, [place] tablet 650 50 Starting Medic al mg on [facility] Branch 04/19/22 at 1533, Until Discontinu ed, Routine, Pain (scale 1-3), Temp > 38.5 C iopamidol 2021-07- No [id number] 75mL 75 mL, [facility] (ISOVUE 0-04-19 Intravenou ity o f 370-500 mL) 18:45: 18:45 s, ONCE, 1 [place] injection 00 :00 dose, On Medica l 75 mL [facility] Branch 04/19/22 at 1345, Routine ketorolac 2021-07- No 30mg 30 mg, Unive rs (TORADOL) 004-19 Slow IV ity of injection 16:00: 15:31 Push, [place] 30 mg 00 :00 ONCE, 1 Medical dose, On Branch [facility] 04/19/22 at 1100, Routine NaCl 0.9% 2021-07 No 30mL/kg at 999 Un gadiel (NS) bolus 004-19 mL/hr, ity of infusion 15:45: 17:28 3,498 mL [place] 3,498 mL 00 :00 (30 mL/kg Medica l ?116.6 Branch kg), IV Infusion, ONCE, 1 dose, On [facility] 04/19/22 at 1045, ISABELA ondansetron 2021-07- No 4mg 4 mg, Slow [facility] (ZOFRAN 04-19 IV Push, ity of (PF)) 15:30: 15:30 ONCE, 1 [place] injection 4 00 :00 dose, On Medi jd mg [facility] 04/19/22 at 1030, ISABELA morpHINE (4 2021-07 No 4mg 4 mg, Slow Univers mg/mL) 04-19 IV Push, ity of injection 4 15:00: 15:30 [place]CE, 1 [place] 00 :00 dose, On Medical [facility] 04/19/22 at 1000, STAT acetaminoph 2021-07 No 650mg 650 mg, U nivers en 04-19 Oral, ity of (TYLENOL) 15:00: 15:29 [place]CE[place] 650 00 :00 dose, On Medic al mg [facility] 04/19/22 at 1000, ISABELA cefTRIAXone 2021-07- No 1000mg 1,000 mg, Univers (ROCEPHIN) 04-19 IV ity of 1,000 mg in 15:00: 16:01 [facility], [place] NaCl 0.9% 00 :00 ONCE, 1 Medical (NS) 50 mL dose, On Branc h MINI-BAG [facility] 04/19/22 at 1000, Administer over 30 Minutes, 50 mL
Reas on for Anti-Infec tive: Empiric Therapy for Suspected Infection< br>Empiric Therapy Site: Urine
D uration of therapy: 72 hours multivit-ir 2021- No [id number] 1{tbl} Take 1 Univers on-FA-calci 15 - tablet by it y of um-mins 9 00:00: 00:00 mouth in [place] mg iron-400 00 :00 the Medical mcg tablet morning Branch for 30 days. sodium 2021- No [id number] Apply to U nivers hypochlorit 03-21-15 area(s) 2 it y of e 0.125 % 00:00: 04:59 (two) [place] ([facility] 00 :00 times Medical SOLUTION) daily for Branc h solution 30 days. zinc 2021-0 2021- No [id number] 50mg Take 1 Unive rs sulfate 50 03-21-15 capsule by it y of mg zinc 00:00: 04:59 mouth in [place] (220 mg) 00 :00 the Medical capsule morning Branch and 1 capsule at noon and 1 capsule in the evening. Do all this for 30 days. sodium 2021- No [id number] Apply to U nivers hypochlorit 03-21-15 area(s) 2 it y of e 0.125 % 00:00: 04:59 (two) [place] ([facility] 00 :00 times Medical SOLUTION) daily for Branc h solution 30 days. zinc 2021-0 2021- No [id number] 50mg Take 1 Unive rs sulfate 50 -20 04-15 capsule by it y of mg zinc 00:00: 04:59 mouth in [place] (220 mg) 00 :00 the Medical capsule morning Branch and 1 capsule at noon and 1 capsule in the evening. Do all this for 30 days. sodium 2021-0 2021- No [id number] Apply to U nivers hypochlorit 14 10-15 area(s) 2 it y of e 0.125 % 00:00: 04:59 (two) [place] ([facility] 00 :00 times Medical SOLUTION) daily for Branc h solution 30 days. zinc 2021-0 2021- No [id number] 50mg Take 1 Unive rs sulfate 50 9-14 10-15 capsule by it y of mg zinc 00:00: 04:59 mouth in [place] (220 mg) 00 :00 the Medical capsule morning Branch and 1 capsule at noon and 1 capsule in the evening. Do all this for 30 days. sodium 2021-0 2- No [id number] Apply to U nivers hypochlorit 9-14 10-15 area(s) 2 it y of e 0.125 % 00:00: 04:59 (two) [place] ([facility] 00 :00 times Medical SOLUTION) daily for Branc h solution 30 days. zinc 2021-0 2022- No [id number] 50mg Take 1 Unive rs sulfate 50 9-14 10-15 capsule by it y of mg zinc 00:00: 04:59 mouth in [place] (220 mg) 00 :00 the Medical capsule morning Branch and 1 capsule at noon and 1 capsule in the evening. Do all this for 30 days. sodium 2021-0 2021- No [id number] Apply to U nivers hypochlorit 9-14 10-15 area(s) 2 it y of e 0.125 % 00:00: 04:59 (two) [place] ([facility] 00 :00 times Medical SOLUTION) daily for Branc h solution 30 days. zinc 2021-0 2021- No [id number] 50mg Take 1 Unive rs sulfate 50 9-14 10-15 capsule by it y of mg zinc 00:00: :59 mouth in [place] (220 mg) 00 :00 the Medical capsule morning Branch and 1 capsule at noon and 1 capsule in the evening. Do all this for 30 days. sodium 2021-0 2021- No [id number] Apply to U nivers hypochlorit 9-14 10-15 area(s) 2 it y of e 0.125 % 00:00: 04:59 (two) [place] ([facility] 00 :00 times Medical SOLUTION) daily for Branc h solution 30 days. zinc 202-0 2022- No [id number] 50mg Take 1 Unive rs sulfate 50 9-14 10-15 capsule by it y of mg zinc 00:00: 04:59 mouth in [place] (220 mg) 00 :00 the Medical capsule morning Branch and 1 capsule at noon and 1 capsule in the evening. Do all this for 30 days. sodium 202-0 2022- No [id number] Apply to U nivers hypochlorit 9-14 10-15 area(s) 2 it y of e 0.125 % 00:00: 04:59 (two) [place] ([facility] 00 :00 times Medical SOLUTION) daily for Branc h solution 30 days. zinc 2022-0 2022- No [id number] 50mg Take 1 Unive rs sulfate 50 9-14 10-15 capsule by it y of mg zinc 00:00: 04:59 mouth in [place] (220 mg) 00 :00 the Medical capsule morning Branch and 1 capsule at noon and 1 capsule in the evening. Do all this for 30 days. sodium 2021-0 2022- No [id number] Apply to U nivers hypochlorit 9-14 10-15 area(s) 2 it y of e 0.125 % 00:00: :59 (two) [place] ([facility] 00 :00 times Medical SOLUTION) daily for Branc h solution 30 days. zinc 202-0 2022- No [id number] 50mg Take 1 Unive rs sulfate 50 9-14 10-15 capsule by it y of mg zinc 00:00: 04:59 mouth in [place] (220 mg) 00 :00 the Medical capsule morning Branch and 1 capsule at noon and 1 capsule in the evening. Do all this for 30 days. sodium 2021-0 2022- No [id number] Apply to U nivers hypochlorit 9-14 10-15 area(s) 2 it y of e 0.125 % 00:00: 04:59 (two) [place] ([facility] 00 :00 times Medical SOLUTION) daily for Branc h solution 30 days. zinc 202-0 2022- No [id number] 50mg Take 1 Unive rs sulfate 50 9-14 10-15 capsule by it y of mg zinc 00:00: 04:59 mouth in [place] (220 mg) 00 :00 the Medical capsule morning Branch and 1 capsule at noon and 1 capsule in the evening. Do all this for 30 days. sodium 202-0 2022- No [id number] Apply to U nivers hypochlorit 9-14 10-15 area(s) 2 it y of e 0.125 % 00:00: 04:59 (two) [place] ([facility] 00 :00 times Medical SOLUTION) daily for Branc h solution 30 days. zinc 2022-0 2022- No [id number] 50mg Take 1 Unive rs sulfate 50 9-14 10-15 capsule by it y of mg zinc 00:00: :59 mouth in [place] (220 mg) 00 :00 the Medical capsule morning Branch and 1 capsule at noon and 1 capsule in the evening. Do all this for 30 days. sodium 2021-0 2022- No [id number] Apply to U nivers hypochlorit 9-14 10-15 area(s) 2 it y of e 0.125 % 00:00: 04:59 (two) [place] ([facility] 00 :00 times Medical SOLUTION) daily for Branc h solution 30 days. zinc 2021-0 2021- No [id number] 50mg Take 1 Unive rs sulfate 50 9-14 10-15 capsule by it y of mg zinc 00:: :59 mouth in [place] (220 mg) 00 :00 the Medical capsule morning Branch and 1 capsule at noon and 1 capsule in the evening. Do all this for 30 days. sodium 2021-0 2021- No [id number] Apply to U nivers hypochlorit 9-14 10-15 area(s) 2 it y of e 0.125 % 00:00: :59 (two) [place] ([facility] 00 :00 times Medical SOLUTION) daily for Branc h solution 30 days. zinc 2021-0 2021- No [id number] 50mg Take 1 Unive rs sulfate 50 9-14 10-15 capsule by it y of mg zinc 00:: :59 mouth in [place] (220 mg) 00 :00 the Medical capsule morning Branch and 1 capsule at noon and 1 capsule in the evening. Do all this for 30 days. sodium 2021-0 2021- No [id number] Apply to U nivers hypochlorit 9-14 10-15 area(s) 2 it y of e 0.125 % 00:00: :59 (two) [place] ([facility] 00 :00 times Medical SOLUTION) daily for Branc h solution 30 days. zinc 202-0 2022- No [id number] 50mg Take 1 Unive rs sulfate 50 9-14 10-15 capsule by it y of mg zinc 00:00: 04:59 mouth in [place] (220 mg) 00 :00 the Medical capsule morning Branch and 1 capsule at noon and 1 capsule in the evening. Do all this for 30 days. sodium 2021-0 2- No [id number] Apply to U nivers hypochlorit 9-14 10-15 area(s) 2 it y of e 0.125 % 00:00: 04:59 (two) [place] ([facility] 00 :00 times Medical SOLUTION) daily for Branc h solution 30 days. zinc 2021-0 2022- No [id number] 50mg Take 1 Unive rs sulfate 50 9-14 10-15 capsule by it y of mg zinc 00:00: 04:59 mouth in [place] (220 mg) 00 :00 the Medical capsule morning Branch and 1 capsule at noon and 1 capsule in the evening. Do all this for 30 days. sodium 2021-0 2021- No [id number] Apply to U nivers hypochlorit 9-14 10-15 area(s) 2 it y of e 0.125 % 00:00: 04:59 (two) [place] ([facility] 00 :00 times Medical SOLUTION) daily for Branc h solution 30 days. zinc 2021-0 2021- No [id number] 50mg Take 1 Unive rs sulfate 50 9-14 10-15 capsule by it y of mg zinc 00:00: :59 mouth in [place] (220 mg) 00 :00 the Medical capsule morning Branch and 1 capsule at noon and 1 capsule in the evening. Do all this for 30 days. sodium 2021-0 2021- No [id number] Apply to U nivers hypochlorit 9-14 10-15 area(s) 2 it y of e 0.125 % 00:00: 04:59 (two) [place] ([facility] 00 :00 times Medical SOLUTION) daily for Branc h solution 30 days. zinc 202-0 2022- No [id number] 50mg Take 1 Unive rs sulfate 50 9-14 10-15 capsule by it y of mg zinc 00:00: 04:59 mouth in [place] (220 mg) 00 :00 the Medical capsule morning Branch and 1 capsule at noon and 1 capsule in the evening. Do all this for 30 days. sodium 202-0 2022- No [id number] Apply to U nivers hypochlorit 9-14 10-15 area(s) 2 it y of e 0.125 % 00:00: 04:59 (two) [place] ([facility] 00 :00 times Medical SOLUTION) daily for Branc h solution 30 days. zinc 2022-0 2022- No [id number] 50mg Take 1 Unive rs sulfate 50 9-14 10-15 capsule by it y of mg zinc 00:: 04:59 mouth in [place] (220 mg) 00 :00 the Medical capsule morning Branch and 1 capsule at noon and 1 capsule in the evening. Do all this for 30 days. zinc 2021-0 2022- No [id number] 50mg Take 1 Unive rs sulfate 50 9-14 10-13 capsule by it y of mg zinc 00:00: 00:00 mouth in [place] (220 mg) 00 :00 the Medical capsule morning Branch and 1 capsule at noon and 1 capsule in the evening. Do all this for 30 days. sodium 2021-0 2021- No [id number] Apply to U nivers hypochlorit 9-14 10-13 area(s) 2 it y of e 0.125 % 00:00: 00:00 (two) [place] ([facility] 00 :00 times Medical SOLUTION) daily for Branc h solution 30 days. zinc 2021-0 2021- No [id number] 50mg Take 1 Unive rs sulfate 50 9-14 10-13 capsule by it y of mg zinc 00:00: 00:00 mouth in [place] (220 mg) 00 :00 the Medical capsule morning Branch and 1 capsule at noon and 1 capsule in the evening. Do all this for 30 days. sodium 2021-0 2021- No [id number] Apply to U nivers hypochlorit 9-14 10-13 area(s) 2 it y of e 0.125 % 00:00: 00:00 (two) [place] ([facility] 00 :00 times Medical SOLUTION) daily for Branc h solution 30 days. zinc 2022-0 202- No [id number] 50mg Take 1 Unive rs sulfate 50 9-14 10-13 capsule by it y of mg zinc 00:00: 00:00 mouth in [place] (220 mg) 00 :00 the Medical capsule morning Branch and 1 capsule at noon and 1 capsule in the evening. Do all this for 30 days. sodium 2021- No [id number] Apply to U dagoberto hypochlorit 03-21 area(s) 2 it y of e 0.125 % 00:00: 00:00 (two) [place] ([facility] 00 :00 times Medical SOLUTION) daily for Branc h solution 30 days. zinc 2021- No [id number] 50mg Take 1 Unive rs sulfate 50 03-21 capsule by it y of mg zinc 00:00: 00:00 mouth in [place] (220 mg) 00 :00 the Medical capsule morning Branch and 1 capsule at noon and 1 capsule in the evening. Do all this for 30 days. sodium 2021- No [id number] Apply to U dagoberto hypochlorit 03-21 area(s) 2 it y of e 0.125 % 00:00: 00:00 (two) [place] ([facility] 00 :00 times Medical SOLUTION) daily for Branc h solution 30 days. sodium 2021- No [id number] Apply to U dagoberto hypochlorit 03-21 area(s) 2 it y of e 0.025% 00:00: 00:00 (two) [place] Soln 00 :00 times Medical solution daily for Branch 30 days. sulfamethox 2021- No [id number] 2{tbl} Take 2 Univers azole-trime 8-25 08-31 tablets by i ty of thoprim 00:00: 04:59 mouth in [place] (BACTRIM) 00 :00 the Medical 400-80 mg morning Branch per tablet and 2 tablets in the evening. Do all this for 5 days. collagenase 2021- No [id number] Apply to Univers 250 2-16 09-07 [id number] affected ity of unit/gram 00:00: 00:00 [place] oint[place] 00 :00 daily. Medical Branch ciprofloxac 2020-07- No 500mg Q.5D Take [address] in HCl 0-15 10-25 tablet [facility] (CIPRO) 500 00:00: 23:59 (500 mg Me dical MG tablet 00 :00 total) by Cente r mouth 2 (two) times daily for 10 days. Vital Signs Vital Name Observation Time Observation Value Comments Source WEIGHT 2022-08-20 07:58:00 116.348 kg HEIGHT 2022-08-16 16:00:00 185.2 cm WEIGHT 2022-08-16 16:00:00 114.6 kg WEIGHT 2022-08-09 06:00:00 116.7 kg WEIGHT 2022-08-08 06:15:00 113.4 kg WEIGHT 2022-08-20 07:58:00 116.348 kg HEIGHT 2022-08-16 16:00:00 185.2 cm WEIGHT 2022-08-16 16:00:00 114.6 kg WEIGHT 2022-08-09 06:00:00 116.7 kg WEIGHT 2022-08-08 06:15:00 113.4 kg WEIGHT 2022-08-20 07:58:00 116.348 kg HEIGHT 2022-08-16 16:00:00 185.2 cm WEIGHT 2022-08-16 16:00:00 114.6 kg WEIGHT 2022-08-09 06:00:00 116.7 kg WEIGHT 2022-08-08 06:15:00 113.4 kg HEIGHT 2022-07-24 20:50:00 185.4 cm WEIGHT [...] 18:22:00 147 mm[Hg] Univer sity of pressure [place] [facility] Diastolic blood 2022-06-25 18:22:00 89 mm[Hg] Unive rsity of pressure [place] [facility] Heart rate 2022-06-25 18:22:00 101 /min [facility] [place] [facility] Body temperature 2022-06-25 18:22:00 36.67 Emma [facility] ers[facility] [place] [facility] Respiratory rate 2022-06-25 18:22:00 18 /min Univ ers[facility] [place] [facility] Oxygen saturation in 2022-06-25 18:22:00 94 /min University of Arterial blood by [place] [employer] jd Pulse oximetry Branch Body weight 2022-06-25 09:17:00 116.983 kg [facility] [place] [facility] BMI 2022-06-25 09:17:00 34.03 kg/m2 [facility] [place] [facility] Body height 2022-06-25 05:22:00 185.4 cm [facility] [place] [facility] Systolic blood 2022-06-14 20:32:00 130 mm[Hg] Univer sity of pressure [place] [facility] Diastolic blood 2022-06-14 20:32:00 73 mm[Hg] Unive rsity of pressure [place] [facility] Heart rate 2022-06-14 20:32:00 103 /min [facility] [place] [facility] Body temperature 2022-06-14 20:32:00 36.89 Emma [facility] [place] [facility] Respiratory rate 2022-06-14 20:32:00 18 /min [facility] [place] [facility] Oxygen saturation in 2022-06-14 20:32:00 93 /min University of Arterial blood by [employer] Pulse oximetry Branch Body weight 2022-06-14 10:11:00 115.486 kg [facility] [place] [facility] BMI 2022-06-14 10:11:00 33.59 kg/m2 [facility] [place] [facility] Body height 2022-06-13 10:37:00 185.4 cm [facility] [place] [facility] Heart rate 2022-06-06 21:28:00 95 /min [facility] [place] [facility] Systolic blood 2022-06-06 21:03:00 121 mm[Hg] Univer sity of pressure [place] [facility] Diastolic blood 2022-06-06 21:03:00 87 mm[Hg] Unive rsity of pressure [place] [facility] Body temperature 2022-06-06 21:03:00 37.11 Emma [facility] [place] [facility] Body height 2022-06-06 21:03:00 185.4 cm [facility] [place] [facility] Body weight 2022-06-06 21:03:00 117.028 kg [facility] [place] [facility] BMI 2022-06-06 21:03:00 34.04 kg/m2 [facility] [place] [facility] Oxygen saturation in 2022-06-06 21:03:00 95 /min University of Arterial blood by [place] [employer] j[employer] Pulse oximetry Branch Systolic blood 2022-05-14 18:09:00 139 mm[Hg] Univer sity of pressure [place] [facility] Diastolic blood 2022-05-14 18:09:00 86 mm[Hg] Unive rsity of pressure [place] [facility] Heart rate 2022-05-14 18:09:00 97 /min [facility] [place] [facility] Body temperature 2022-05-14 18:09:00 35.94 Emma [facility] [place] [facility] Respiratory rate 2022-05-14 18:09:00 16 /min Univ [facility] [place] [facility] Body height 2022-05-14 18:09:00 185.4 cm [facility] [place] [facility] Body weight 2022-05-14 18:09:00 116.574 kg [facility] [place] [facility] BMI 2022-05-14 18:09:00 33.91 kg/m2 [facility] [place] [facility] Oxygen saturation in 2022-05-14 18:09:00 98 /min University of Arterial blood by [employer] Pulse oximetry Branch Systolic blood 2022-05-04 09:00:00 104 mm[Hg] Univer sity of pressure [place] [facility] Diastolic blood 2022-05-04 09:00:00 61 mm[Hg] Unive rsity of pressure [place] [facility] Respiratory rate 2022-05-04 09:00:00 25 /min Univ [facility] [place] [facility] Heart rate 2022-05-04 05:35:00 115 /min [facility] [place] [facility] Body temperature 2022-05-04 05:35:00 37.56 Emma [facility] [place] [facility] Body height 2022-05-04 05:35:00 185.4 cm [facility] [place] [facility] Body weight 2022-05-04 05:35:00 116.574 kg [facility] [place] [facility] BMI 2022-05-04 05:35:00 33.91 kg/m2 [facility] [place] [facility] Oxygen saturation in 2022-05-04 05:35:00 95 /min University of Arterial blood by [place] [employer] Pulse oximetry Branch Heart rate 2022-05-02 19:49:00 95 /min [facility] [place] [facility] Systolic blood 2022-05-02 19:23:00 129 mm[Hg] Univer sity of pressure [place] [facility] Diastolic blood 2022-05-02 19:23:00 84 mm[Hg] Unive rsity of pressure [place] [facility] Body temperature 2022-05-02 19:23:00 36.56 Emma [facility] [place] [facility] Body weight 2022-05-02 19:23:00 116.574 kg [facility] [place] [facility] BMI 2022-05-02 19:23:00 33.91 kg/m2 [facility] [place] [facility] Oxygen saturation in 2022-05-02 19:23:00 97 /min University of Arterial blood by [place] [employer] Pulse oximetry Branch Systolic blood 2022-04-22 20:13:00 141 mm[Hg] Univer sity of pressure [place] [facility] Diastolic blood 2022-04-22 20:13:00 88 mm[Hg] Unive rsity of pressure [place] [facility] Heart rate 2022-04-22 20:13:00 77 /min [facility] [place] [facility] Body temperature 2022-04-22 20:13:00 36.28 Emma [facility] [place] [facility] Respiratory rate 2022-04-22 20:13:00 18 /min Univ [facility] [place] [facility] Oxygen saturation in 2022-04-22 20:13:00 97 /min [facility] of Arterial blood by [place] Medi jd Pulse oximetry Branch Body weight 2022-04-21 09:00:00 120.974 kg [facility] [place] [facility] BMI 2022-04-21 09:00:00 35.19 kg/m2 [facility] [place] [facility] Body height 2022-04-19 23:48:00 185.4 cm [facility] [place] [facility] Systolic blood 2022-04-16 18:24:00 138 mm[Hg] Univer sity of pressure [place] [facility] Diastolic blood 2022-04-16 18:24:00 96 mm[Hg] Unive rsity of pressure [place] [facility] Heart rate 2022-04-16 18:23:00 98 /min [facility] [place] [facility] Body weight 2022-04-16 18:23:00 116.574 kg [facility] [place] [facility] BMI 2022-04-16 18:23:00 33.91 kg/m2 [facility] [place] [facility] Oxygen saturation in 2022-04-16 18:23:00 97 /min University of Arterial blood by [place] [employer] j[employer] Pulse oximetry Branch Systolic blood 2022-04-05 19:31:00 123 mm[Hg] Univer sity of pressure [place] [facility] Diastolic blood 2022-04-05 19:31:00 79 mm[Hg] Unive rsity of pressure [place] [facility] Heart rate 2022-04-05 19:31:00 110 /min [facility] [place] [facility] Body temperature 2022-04-05 19:31:00 36.5 Emma [facility] [place] [facility] Respiratory rate 2022-04-05 19:31:00 18 /min Univ [facility] [place] [facility] Body height 2022-04-05 19:31:00 185.4 cm [facility] [place] [facility] Body weight 2022-04-05 19:31:00 116.574 kg [facility] [place] [facility] BMI 2022-04-05 19:31:00 33.91 kg/m2 [facility] [place] [facility] Oxygen saturation in 2022-04-05 19:31:00 96 /min University of Arterial blood by [employer] Pulse oximetry Branch Systolic blood 2022-04-04 15:58:00 133 mm[Hg] Univer sity of pressure [place] [facility] Diastolic blood 2022-04-04 15:58:00 89 mm[Hg] Unive rsity of pressure [place] [facility] Heart rate 2022-04-04 15:58:00 87 /min [facility] [place] [facility] Body temperature 2022-04-04 15:58:00 36.67 Emma [facility] [place] [facility] Body height 2022-04-04 15:58:00 185.4 cm [facility] [place] [facility] Body weight 2022-04-04 15:58:00 116.574 kg [facility] [place] [facility] BMI 2022-04-04 15:58:00 33.91 kg/m2 [facility] [place] [facility] Oxygen saturation in 2022-04-04 15:58:00 95 /min University of Arterial blood by [place] [employer] Pulse oximetry Branch Systolic blood 2022-03-30 17:45:00 133 mm[Hg] Univer sity of pressure [place] [facility] [place] Diastolic blood 2022-03-30 17:45:00 83 mm[Hg] Unive rsity of [facility] Heart rate 2022-03-30 17:45:00 100 /min [facility] [place] [facility] Body temperature 2022-03-30 17:45:00 36.33 Emma [facility] [place] [facility] [place] Respiratory rate 2022-03-30 17:45:00 16 /min Univ [facility] [place] [facility] Body height 2022-03-30 17:45:00 185.4 cm [facility] [place] [facility] Body weight 2022-03-30 17:45:00 116.574 kg [facility] [place] [facility] BMI 2022-03-30 17:45:00 33.91 kg/m2 [facility] [place] [facility] Oxygen saturation in 2022-03-30 17:45:00 97 /min [facility] Arterial blood by [place] [employer] Pulse oximetry Branch HEIGHT 2021-04-18 08:11:00 188 cm WEIGHT 2021-04-18 08:11:00 113.399 kg HEIGHT 2021-04-18 08:11:00 188 cm WEIGHT 2021-04-18 08:11:00 113.399 kg Systolic blood 2022-08-21 11:32:00 110 mm[Hg] [facility] Diastolic blood 2022-08-21 11:32:00 70 mm[Hg] [facility] Heart rate 2022-08-21 11:32:00 90 /min [facility] Body temperature 2022-08-21 11:32:00 36.56 Emma [facility] Respiratory rate 2022-08-21 11:32:00 18 /min [facility] Oxygen saturation in 2022-08-21 11:32:00 95 /min [facility] Arterial blood by Medical Ce nter Pulse oximetry Body weight 2022-08-20 07:58:[address] [facility] BMI 2022-08-20 07:58:00 33.92 kg/m2 [facility] Body height 2022-08-16 16:00:[address] [facility] Body height 2022-08-08 14:40:[address] [facility] Body weight 2022-08-08 14:40:[address] [facility] BMI 2022-08-08 14:40:00 32.99 kg/m2 [facility] Systolic blood 2022-08-08 13:00:00 100 mm[Hg] [facility] Diastolic blood 2022-08-08 13:00:00 78 mm[Hg] [facility] Heart rate 2022-08-08 13:00:00 117 /min [facility] Respiratory rate 2022-08-08 13:00:00 20 /min [facility] Oxygen saturation in 2022-08-08 13:00:00 98 /min [facility] Arterial blood by Medical Ce nter Pulse oximetry Body temperature 2022-08-08 12:00:00 37.67 Emma [facility] Heart rate 2022-07-27 13:03:34 110 /min [facility] Respiratory rate 2022-07-27 13:03:34 17 /min [facility] Oxygen saturation in 2022-07-27 13:03:34 98 /min [facility] Arterial blood by Medical Ce nter Pulse oximetry Systolic blood 2022-07-27 13:02:45 108 mm[Hg] [facility] Diastolic blood 2022-07-27 13:02:45 79 mm[Hg] [facility] Body temperature 2022-07-27 07:48:46 36.83 Emma [facility] Body height 2022-07-24 20:50:[address] [facility] Body weight 2022-07-24 20:50:[address] [facility] BMI 2022-07-24 20:50:00 32.98 kg/m2 [facility] Heart rate 2022-07-13 07:58:35 117 /min [facility] Oxygen saturation in 2022-07-13 07:58:35 97 /min [facility] Arterial blood by Medical Ce nter Pulse oximetry Body temperature 2022-07-13 07:58:26 36.78 Emma [facility] Systolic blood 2022-07-13 07:57:00 110 mm[Hg] [facility] Diastolic blood 2022-07-13 07:57:00 66 mm[Hg] [facility] Respiratory rate 2022-07-13 04:31:00 19 /min [facility] Heart rate 2022-07-10 10:50:21 102 /min [facility] Respiratory rate 2022-07-10 10:50:21 18 /min [facility] Oxygen saturation in 2022-07-10 10:50:21 95 /min [facility] Arterial blood by Medical Ce nter Pulse oximetry Body temperature 2022-07-10 10:49:38 36.83 Emma [facility] Systolic blood 2022-07-10 10:49:30 114 mm[Hg] [facility] Diastolic blood 2022-07-10 10:49:30 73 mm[Hg] [facility] Systolic blood 2022-07-04 16:18:00 121 mm[Hg] [facility] Diastolic blood 2022-07-04 16:18:00 78 mm[Hg] [facility] Heart rate 2022-07-04 16:18:00 87 /min [facility] Body temperature 2022-07-04 16:18:00 36.44 Emma [facility] Respiratory rate 2022-07-04 16:18:00 17 /min [facility] Oxygen saturation in 2022-07-04 16:18:00 93 /min [facility] Arterial blood by Medical Ce nter Pulse oximetry Body height 2022-07-01 15:54:[address] [facility] Body weight 2022-07-01 15:54:[address] [facility] BMI 2022-07-01 15:54:00 34.04 kg/m2 [facility] Systolic blood 2022-06-26 12:32:00 136 mm[Hg] [facility] Diastolic blood 2022-06-26 12:32:00 97 mm[Hg] [facility] Heart rate 2022-06-26 12:32:00 106 /min [facility] Body temperature 2022-06-26 12:32:00 36.67 Emma [facility] Respiratory rate 2022-06-26 12:32:00 18 /min [facility] Body height 2022-06-26 12:32:[address] [facility] Body weight 2022-06-26 12:32:[address] [facility] BMI 2022-06-26 12:32:00 34.04 kg/m2 [facility] Oxygen saturation in 2022-06-26 12:32:00 93 /min [facility] Arterial blood by Medical Ce [facility]ter Pulse oximetry Systolic blood 2022-03-21 18:14:00 145 mm[Hg] [facility] Diastolic blood 2022-03-21 18:14:00 99 mm[Hg] [facility] Heart rate 2022-03-21 18:14:00 110 /min [facility] Body temperature 2022-03-21 18:14:00 36 [facility] 2022-03-21 18:14:00 18 /min [facility] O[facility] saturation in 2022-03-21 18:14:00 96 /min [facility] Arterial blood by [facility] Pulse oximetry Branch Body height 2022-03-14 16:48:00 185.4 cm [facility] Body weight 2022-03-14 16:48:00 116.484 kg [facility] BMI 2022-03-14 16:48:00 33.88 kg/m2 [facility] Systolic blood 2021-04-20 15:12:00 121 mm[Hg] [facility] Diastolic blood 2021-04-20 15:12:00 66 mm[Hg] [facility] Heart rate 2021-04-20 15:12:00 87 /min [facility] Body temperature 2021-04-20 15:12:00 35.72 Emma [facility] Respiratory rate 2021-04-20 15:12:00 18 /min [facility] Oxygen saturation in 2021-04-20 15:12:00 93 /min [facility] Arterial blood by Medical Ce [facility]ter Pulse oximetry Body height 2021-04-18 08:11:[address] [facility] Body weight 2021-04-18 08:11:[address] [facility] BMI 2021-04-18 08:11:00 32.10 kg/m2 [facility] Procedures Procedure Date / Time Performing Clinician Source Performed CBC W/PLT COUNT & AUTO 2022-08-21 04:35:00 Yifan Akers [facility] BASIC METABOLIC PANEL 2022-08-21 04:35:00 Yifan Akers [facility] MAGNESIUM 2022-08-21 04:35:00 OswaldYifan ramirez [facility] PHOSPHORUS 2022-08-21 04:35:00 Yifan Akers [facility] CBC W/PLT COUNT & AUTO 2022-08-21 04:35:00 Yifan Akers [facility] CBC W/PLT COUNT & AUTO 2022-08-20 04:12:00 Yifan Akers [facility] BASIC METABOLIC PANEL 2022-08-20 04:12:00 Yifan Akers [facility] MAGNESIUM 2022-08-20 04:12:00 Yifan Akers [facility] PHOSPHORUS 2022-08-20 04:12:00 Yifan Akers [facility] HEPATIC FUNCTION PANEL 2022-08-20 04:12:00 Pushpa Chapin [facility] CBC W/PLT COUNT & AUTO 2022-08-20 04:12:[address] [facility] CBC W/PLT COUNT & AUTO 2022-08-19 04:29:[address] [facility] BASIC METABOLIC PANEL 2022-08-19 04:29:00 Yifan Akers [facility] MAGNESIUM 2022-08-19 04:29:00 Yifan Akers [facility] PHOSPHORUS 2022-08-19 04:29:00 Yifan Akers [facility] CBC W/PLT COUNT & AUTO 2022-08-19 04:29:[address] [facility] CBC W/PLT COUNT & AUTO 2022-08-18 04:27:[address] [facility] BASIC METABOLIC PANEL 2022-08-18 04:27:00 Yifan Akers [facility] MAGNESIUM 2022-08-18 04:27:00 Yifan Akers [facility] PHOSPHORUS 2022-08-18 04:27:00 OswaldYifan ramirez [facility] CBC W/PLT COUNT & AUTO 2022-08-18 04:27:[address] [facility] CBC W/PLT COUNT & AUTO 2022-08-17 06:48:[address] [facility] BASIC METABOLIC PANEL 2022-08-17 06:48:00 OswaldYifan ramirez [facility] MAGNESIUM 2022-08-17 06:48:00 Yifan Akers [facility] PHOSPHORUS 2022-08-17 06:48:00 Yifan Akers [facility] CBC W/PLT COUNT & AUTO 2022-08-17 06:48:00 Yifan Akers [facility] LACTATE DEHYDROGENASE 2022-08-16 17:39:00 Sergio [facility] [place] URIC ACID 2022-08-16 17:39:00 Jagjit Hill [facility] ALPHA FETOPROTEIN (AFP), 2022-08-16 16:56:00 Jagjit Hill [facility] TUMOR MARKER Center SARS-COV2/RT-PCR ([facility] & 2022-08-16 06:58:00 Cony Orantes [facility] REF LABS) Center CBC W/PLT COUNT & AUTO 2022-08-16 04:05:00 Yifan Akers [facility] BASIC METABOLIC PANEL 2022-08-16 04:05:00 Yifan Akers [facility] MAGNESIUM 2022-08-16 04:05:00 Yifan Akers Anthony [facility] PHOSPHORUS 2022-08-16 04:05:00 [facility] HE[facility] FUNCTION PANEL 2022-08-16 04:05:00 Pacheco Lawrence C [facility] CBC W/PLT COUNT & AUTO 2022-08-16 04:05:00 Yifan Akers [facility] CBC W/PLT COUNT & AUTO 2022-08-15 04:05:00 OswaldYifan ramirez [facility] BASIC METABOLIC PANEL 2022-08-15 04:05:00 Yifan Akers [facility] MAGNESIUM 2022-08-15 04:05:00 OswladYifan ramirez [facility] PHOSPHORUS 2022-08-15 04:05:00 OswaldYifan ramirez [facility] CBC W/PLT COUNT & AUTO 2022-08-15 04:05:00 Yifan Akers [facility] CT 2022-08-14 11:25:00 Bette Johnson [facility] BIOPSY/ASPIRATION/INJECTIO [facility] Cente r [facility] CULTURE + SMEAR 2022-08-14 11:03:00 Bette Johnson [facility] (NON-SPUTUM) [facility] TISSUE EXAM 2022-08-14 11:03:00 [facility] [place] ANAEROBIC CULTURE 2022-08-14 11:02:00 [facility] FUNGUS CULTURE + SMEAR 2022-08-14 11:02:00 [facility] [place] SURGICALLY OBTAINED 2022-08-14 11:02:00 Bette Johnson [facility] CULT[facility] + [facility] BASIC METABOLIC PANEL 2022-08-14 04:26:00 Yifan Akers Anthony [facility] MAGNESIUM 2022-08-14 04:26:00 Yifan Akers Anthony [facility] PHOSPHORUS 2022-08-14 04:26:00 Oswald [facility] PROTHROMBIN TIME/INR 2022-08-14 04:26:00 [facility] [place] CBC W/PLT COUNT & AUTO 2022-08-14 04:25:00 Yifan Akers [facility] CBC W/PLT COUNT & AUTO 2022-08-14 04:25:00 Yifan Akers [facility] 2D ECHO W/ DOPPLER 2022-08-13 09:49:26 [facility]ita [facility] [place] CBC W/PLT COUNT & AUTO 2022-08-13 04:11:00 Yifan Akers Anthony [facility] BASIC METABOLIC PANEL 2022-08-13 04:11:00 Yifan Akers [facility] MAGNESIUM 2022-08-13 04:11:00 Yifan Akers [facility] PHOSPHORUS 2022-08-13 04:11:00 Yifan Akers [facility] PROTHROMBIN TIME/INR 2022-08-13 04:11:00 Alex Ndcorrie [facility] CBC W/PLT COUNT & AUTO 2022-08-13 04:11:[address] [facility] CBC W/PLT COUNT & AUTO 2022-08-12 05:01:[address] [facility] BASIC METABOLIC PANEL 2022-08-12 05:01:00 Yiafn Akers [facility] MAGNESIUM 2022-08-12 05:01:00 Yifan Akers [facility] PHOSPHORUS 2022-08-12 05:01:00 Yifan Akers [facility] CBC W/PLT COUNT & AUTO 2022-08-12 05:01:00 Yifan Akers [facility] BLOOD CULTURE 2022-08-11 05:53:00 [facility] 2022-08-11 05:46:00 Alex [facility] CBC W/PLT COUNT & AUTO 2022-08-11 05:45:[address] [facility] BASIC METABOLIC PANEL 2022-08-11 05:45:00 Yifan Akers [facility] MAGNESIUM 2022-08-11 05:45:00 Yifan Akers [facility] PHOSPHORUS 2022-08-11 05:45:00 OswaldYifan ramirez [facility] CBC W/PLT COUNT & AUTO 2022-08-11 05:45:[address] [facility] CBC W/PLT COUNT & AUTO 2022-08-10 04:53:[address] [facility] BASIC METABOLIC PANEL 2022-08-10 04:53:00 OswaldYifan ramirez [facility] MAGNESIUM 2022-08-10 04:53:00 Yifan Akers [facility] PHOSPHORUS 2022-08-10 04:53:00 [facility] CBC W/PLT COUNT & AUTO 2022-08-10 04:53:00 Yifan Akers [facility] DIFFERENTIAL [place] VANCOMYCIN LEVEL, TROUGH 2022-08-09 22:25:00 Didi Garcia [facility] MR PELVIS WITH & WITHOUT 2022-08-09 21:00:00 oCny Orantes [facility] IV CONTRAST Center VENOUS DOPPLER LEGS 2022-08-09 10:00:00 Cony Orantes [facility] SARS-COV2/RT-PCR ([facility] & 2022-08-09 09:47:00 Cony Orantes [facility] REF LABS) Center CBC W/PLT COUNT & AUTO 2022-08-09 04:31:00 Yifan Akers [facility] BASIC METABOLIC PANEL 2022-08-09 04:31:00 Yifan Akers Anthony [facility] MAGNESIUM 2022-08-09 04:31:00 Yifan Akers Anthony [facility] PHOSPHORUS 2022-08-09 04:31:00 Oswald [facility] HEPATIC FUNCTION PANEL 2022-08-09 04:31:00 Josselyn Donald [facility] CBC W/PLT COUNT & AUTO 2022-08-09 04:31:00 Yifan Akers [facility] XR CHEST 1 VIEW PORTABLE / 2022-08-08 16:00:00 Cony Orantes [facility] BEDSIDE Center POCT-GLUCOSE METER 2022-08-08 12:36:00 Shannan Price [facility] URINALYSIS W/ REFLEX URINE 2022-08-08 09:11:00 Cony Orantes [facility] CULTURE Center URINE CULTURE 2022-08-08 09:11:00 Cony Orantes [facility] BLOOD CULTURE 2022-08-08 08:37:00 Emeka Orantesimie [facility] BLOOD CULTURE 2022-08-08 08:37:00 Emeka Orantesimie [facility] IDENTIFICATION PANEL Center CBC W/PLT COUNT & AUTO 2022-08-08 07:24:00 Yifan Akers [facility] BASIC METABOLIC PANEL 2022-08-08 07:24:00 Yifan Akers [facility] MAGNESIUM 2022-08-08 07:24:00 [facility]US 2022-08-08 07:24:00 Oswald [facility] PROTHROMBIN TIME/INR 2022-08-08 07:24:00 Oswald [facility] APTT 2022-08-08 07:24:00 Oswald [facility] CBC W/PLT COUNT & AUTO 2022-08-08 07:24:00 Yifan Akers [facility] (CELLAVISION MANUAL DIFF) 2022-08-08 07:24:00 Oswald [facility] CALCIUM, IONIZED 2022-08-08 07:23:00 Oswald [facility] LACTIC ACID, VENOUS 2022-08-08 07:23:00 Oswald [facility] TYPE AND SCREEN, AUTOMATED 2022-08-08 07:23:00 Yifan Akers [facility] MAGNESIUM 2022-07-31 13:36:00 [facility] CBC W/AUTO DIFF WITH 2022-07-31 13:36:00 [facility] Medicine COMPREHENSIVE METABOLIC 2022-07-31 13:36:00 [facility] POCT-GLUCOSE METER 2022-07-27 08:17:00 Naveen Rojas [facility] CBC W/PLT COUNT & AUTO 2022-07-27 03:36:00 Norm King [facility] TYPE AND SCREEN, AUTOMATED 2022-07-27 03:36:00 Norm King [facility] CBC W/PLT COUNT & AUTO 2022-07-27 03:36:00 Norm King [facility] (CELLAVISION MANUAL DIFF) 2022-07-27 03:36:00 Norm King [facility] POCT-GLUCOSE METER 2022-07-26 07:54:00 Darius, [facility] CBC W/PLT COUNT & AUTO 2022-07-26 04:34:00 Darius, Ahmed Nasif C [facility] CBC W/PLT COUNT & AUTO 2022-07-26 04:34:00 Darius, Ahmed Nasif C [facility] (CELLAVISION MANUAL DIFF) 2022-07-26 04:34:00 Darius, Ahmed Nasi f [facility] BASIC METABOLIC PANEL 2022-07-26 03:26:00 Darius, med Susan [facility] MAGNESIUM 2022-07-26 03:26:00 Darius, med Nasif [facility] PHOSPHORUS 2022-07-26 03:26:00 Darius, [facility] VANCOMYCIN LEVEL, TROUGH 2022-07-25 21:39:00 Angela Ramos [facility] URINE CULTURE 2022-07-25 19:27:00 Angela Ramos [facility] POCT-GLUCOSE METER 2022-07-25 06:19:00 Enid Butt [facility] BASIC METABOLIC PANEL 2022-07-25 04:24:00 [facility] CBC W/PLT COUNT & AUTO 2022-07-25 04:24:[address] [facility] MAGNESIUM 2022-07-25 04:24:00 [facility] PHOSPHORUS 2022-07-25 04:24:00 [facility] HEPATIC FUNCTION PANEL 2022-07-25 04:24:00 [facility] CBC W/PLT COUNT & AUTO 2022-07-25 04:24:00 [facility] DIFFERENTIAL Center (CELLAVISION MANUAL DIFF) 2022-07-25 04:24:[address] [facility] CTA CHEST FOR PULMONARY 2022-07-25 03:38:00 Kim River [facility] EMBOLUS Center ED ECG INTERPRETATION 2022-07-25 01:09:15 Jose [facility] HIGH SENSITIVITY TROPONIN 2022-07-25 00:54:00 Jose [facility] URINALYSIS W/ REFLEX URINE 2022-07-24 22:40:00 Jose Lazaro [facility] CULTURE Center BLOOD CULTURE 2022-07-24 22:08:00 [facility] SARS-COV2/INFLUENZA/RSV 2022-07-24 21:49:00 Jose [facility] RT-PCR Center CBC W/PLT COUNT & AUTO 2022-07-24 21:48:00 Jose [facility] DIFFERENTIAL [place] LACTIC ACID, VENOUS 2022-07-24 21:48:00 [facility] COMPREHENSIVE METABOLIC 2022-07-24 21:48:00 Jose [facility] PANEL Center PROTHROMBIN TIME/INR 2022-07-24 21:48:00 [facility] APTT 2022-07-24 21:48:00 [facility] LACTATE DEHYDROGENASE 2022-07-24 21:48:00 [facility] URIC ACID 2022-07-24 21:48:00 [facility] PHOSPHORUS 2022-07-24 21:48:00 [facility] CBC W/PLT COUNT & AUTO 2022-07-24 21:48:00 Jose [facility] DIFFERENTIAL Center (CELLAVISION MANUAL DIFF) 2022-07-24 21:48:00 Jose, Lazaro [facility] BLOOD CULTURE 2022-07-24 21:47:00 Lazaro Garcia [facility] XR CHEST 1 VIEW PORTABLE / 2022-07-24 21:22:00 Lazaro Garcia [facility] Center ECG 12-LEAD 2022-07-24 20:59:35 Merchant, Jamel [facility] ECG 12-LEAD 2022-07-24 20:59:35 Unknown, Hl7 Doctor [facility] ECG 12-LEAD 2022-07-24 20:59:35 Unknown, Hl7 [facility] EKG-SCANNED 2022-07-24 00:00:00 Robert [facility] BASIC METABOLIC PANEL 2022-07-18 04:03:00 Clifford [facility] PHOSPHORUS 2022-07-18 04:03:00 [facility] 2022-07-18 04:03:00 [facility] CBC W/PLT COUNT & AUTO 2022-07-18 04:03:00 [facility]EL 2022-07-18 04:03:00 [facility] CBC W/PLT COUNT & AUTO 2022-07-18 04:03:00 [facility] (CELLAVISION MANUAL DIFF) 2022-07-18 04:03:00 Norm King [facility] BASIC METABOLIC PANEL 2022-07-17 04:20:00 Clifford [facility] PHOSPHORUS 2022-07-17 04:20:00 [facility]IC ACID 2022-07-17 04:20:00 Fernando [facility] CBC W/PLT COUNT & AUTO 2022-07-17 04:20:00 [facility] HEPATIC FUNCTION PANEL 2022-07-17 04:20:00 [facility] CBC W/PLT COUNT & AUTO 2022-07-17 04:20:00 [facility] SARS-COV2/RT-[facility] ([facility] & 2022-07-16 22:19:00 Jamel Pittman [facility] REF LABS) [place] SPUTUM CULTURE + GRAM 2022-07-16 15:23:00 Amilcar Main [facility] INSURANCE CORRESPONDENCE 2022-07-16 06:01:00 Doctor Unassigned, [facility] BASIC METABOLIC PANEL 2022-07-16 04:54:00 [facility] 2022-07-16 04:54:00 [facility] URIC ACID 2022-07-16 04:54:00 [facility] CBC W/PLT COUNT & AUTO 2022-07-16 04:54:00 [facility] HEPATIC FUNCTION PANEL 2022-07-16 04:54:00 [facility] CBC W/PLT COUNT & AUTO 2022-07-16 04:54:00 [facility] BASIC METABOLIC PANEL 2022-07-15 05:35:00 Clifford [facility] PHOSPHORUS 2022-07-15 05:35:00 [facility] URIC ACID 2022-07-15 05:35:00 [facility] CBC W/PLT COUNT & AUTO 2022-07-15 05:35:00 [facility] HEPATIC FUNCTION PANEL 2022-07-15 05:35:00 [facility] CBC W/PLT COUNT & AUTO 2022-07-15 05:35:00 [facility] MR PELVIS WITHOUT IV 2022-07-14 11:14:00 Naveen [facility]jas [facility] VANCOMYCIN LEVEL, TROUGH 2022-07-14 07:47:00 Warren Eden [facility] MRSA SCREEN 2022-07-14 05:16:00 Amilcar Main [facility] BASIC METABOLIC PANEL 2022-07-14 04:36:00 [facility] 2022-07-14 04:36:00 [facility]IC ACID 2022-07-14 04:36:00 Fernando [facility] CBC W/PLT COUNT & AUTO 2022-07-14 04:36:00 [facility] HEPATIC FUNCTION PANEL 2022-07-14 04:36:00 [facility] CBC W/PLT COUNT & AUTO 2022-07-14 04:36:00 [facility] BASIC METABOLIC PANEL 2022-07-13 04:41:00 [facility] CBC W/PLT COUNT & AUTO 2022-07-13 04:41:00 [facility] HEPATIC FUNCTION PANEL 2022-07-13 04:41:00 [facility] URIC ACID 2022-07-13 04:41:00 Fernando [facility] PHOSPHORUS 2022-07-13 04:41:00 Fernando [facility] CBC W/PLT COUNT & AUTO 2022-07-13 04:41:00 [facility] MAGNESIUM 2022-07-13 04:41:00 Eyad [facility] BASIC METABOLIC PANEL 2022-07-12 04:20:00 Clifford [facility] CBC W/PLT COUNT & AUTO 2022-07-12 04:20:[address] [facility] [place] HEPATIC FUNCTION PANEL 2022-07-12 04:20:00 [facility] URIC ACID 2022-07-12 04:20:00 [facility] 2022-07-12 04:20:00 Fernando [facility] CBC W/PLT COUNT & AUTO 2022-07-12 04:20:00 [facility] BLOOD CULTURE, ROUTINE 2022-07-11 22:47:00 Kranthi Rehman [facility] ISOLATOR [place] URINALYSIS W/ REFLEX URINE 2022-07-11 22:39:00 Kranthi Rehman [facility] CULTURE Center URINE CULTURE 2022-07-11 22:39:00 Kranthi Rehman [facility] BASIC METABOLIC PANEL 2022-07-11 05:40:00 Clifford [facility] CBC W/PLT COUNT & AUTO 2022-07-11 05:40:[address] [facility] [place] HEPATIC FUNCTION PANEL 2022-07-11 05:40:[address] [facility] HEPATITIS B SURFACE 2022-07-11 05:40:00 [facility] [place] HEPATITIS B SURFACE 2022-07-11 05:40:00 [facility] ANTIBODY [place] HEPATITIS C ANTIBODY 2022-07-11 05:40:00 [facility] B CORE ANTIBODY, 2022-07-11 05:40:00 Norm King [facility] TOTAL [place] URIC ACID 2022-07-11 05:40:00 Fernando [facility] PHOSPHORUS 2022-07-11 05:40:00 [facility] LACTATE DEHYDROGENASE 2022-07-11 05:40:00 [facility] [place] VANCOMYCIN LEVEL, TROUGH 2022-07-11 05:40:00 Swati River [facility] CBC W/PLT COUNT & AUTO 2022-07-11 05:40:[address] [facility] [place] CTA CHEST FOR PULMONARY 2022-07-11 05:04:00 Merchant [facility] EMBOLUS Center ECG 12-LEAD 2022-07-10 18:37:56 [facility] BASIC METABOLIC PANEL 2022-07-10 05:21:00 Clifford [facility] BLOOD CULTURE 2022-07-09 16:47:00 [facility] BLOOD CULTURE 2022-07-09 16:36:00 [facility] XR CHEST 1 VIEW PORTABLE / 2022-07-09 14:33:00 Zachery Pedersen [facility] XR CHEST 1 VIEW PORTABLE / 2022-07-09 12:44:00 Salome, Zachery Catherine [facility] SARS-COV2/RT-PCR ([facility] & 2022-07-09 11:44:00 [facility] REF LABS) [place] CT BIOPSY LUNG 2022-07-09 10:30:00 [facility] BIOPSY LUNG 2022-07-09 10:30:00 [facility] TISSUE EXAM 2022-07-09 10:28:00 [facility] BASIC METABOLIC PANEL 2022-07-09 03:39:00 [facility] CBC (HEMOGRAM ONLY) 2022-07-09 03:39:00 [facility] URINALYSIS W/ REFLEX URINE 2022-07-08 14:10:00 [facility] BASIC METABOLIC PANEL 2022-07-08 02:16:00 [facility] CBC (HEMOGRAM ONLY) 2022-07-08 02:16:00 [facility] PT/APTT 2022-07-08 02:16:00 [facility] BASIC METABOLIC PANEL 2022-07-07 05:46:00 [facility] PT/APTT 2022-07-07 05:46:00 [facility] CBC (HEMOGRAM ONLY) 2022-07-07 05:46:00 [facility] PROCEDURE, IN 2022-07-06 16:00:00 Virtual, Surgeon [facility] NON-OPERATING ROOM SETTING Cente r MR BRAIN WITH & WITHOUT IV 2022-07-06 12:13:00 [facility] POCT-GLUCOSE METER 2022-07-06 09:14:00 [facility], [facility] BASIC METABOLIC PANEL 2022-07-06 04:58:00 [facility] PT/APTT 2022-07-06 04:58:00 [facility] CBC (HEMOGRAM ONLY) 2022-07-06 04:58:00 [facility] SARS-COV2/RT-PCR ([facility] & 2022-07-05 13:02:00 [facility] REF LABS) [place] BASIC METABOLIC PANEL 2022-07-05 03:55:00 [facility] PT/APTT 2022-07-05 03:55:00 [facility] CBC (HEMOGRAM ONLY) 2022-07-05 03:55:00 [facility] B-TYPE NATRIURETIC FACTOR 2022-07-05 03:55:00 [facility] ([facility]NP) Center PROCEDURE, IN 2022-07-04 18:35:00 Virtual, Surgeon [facility] NON-OPERATING ROOM SETTING Cente r XR CHEST 1 VIEW PORTABLE / 2022-07-04 17:20:00 Ruth Miller [facility] BASIC METABOLIC PANEL 2022-07-04 04:07:00 [facility] CBC W/PLT COUNT & AUTO 2022-07-04 04:07:00 [facility] PROTHROMBIN TIME/INR 2022-07-04 04:07:00 Naveen Rojas [facility] CBC W/PLT COUNT & AUTO 2022-07-04 04:07:00 [facility] BASIC METABOLIC PANEL 2022-07-03 05:16:00 [facility] CBC W/PLT COUNT & AUTO 2022-07-03 05:16:00 [facility] CBC W/PLT COUNT & AUTO 2022-07-03 05:16:00 [facility] XR CHEST 1 VIEW PORTABLE / 2022-07-02 17:47:00 Socorro, C HI [facility] BEDSIDE [facility] [place] FLUORO NON-SPECIFIC UP 2022-07-02 17:45:00 Socorro, CH I [facility] TO [address] [facility] INSERTION,INTRAHEPATIC 2022-07-02 16:23:[address] [facility] PORTACATH [facility] ABORH, MANUAL 2022-07-02 10:34:00 Sharri Anderson [facility] ABORH, MANUAL 2022-07-02 10:19:00 Manisha Sorto [facility] FERRITIN 2022-07-02 10:18:00 [facility] IRON, TIBC, % SAT. 2022-07-02 10:18[facility]00 [facility] [place] BASIC METABOLIC PANEL 2022-07-02 05:45:00 [facility] CBC W/PLT COUNT & AUTO 2022-07-02 05:45:00 [facility] CBC W/PLT COUNT & AUTO 2022-07-02 05:45:00 [facility] BASIC METABOLIC PANEL 2022-07-01 04:27:00 [facility] CBC W/PLT COUNT & AUTO 2022-07-01 04:27:00 [facility] CBC W/PLT COUNT & AUTO 2022-07-01 04:27:00 [facility] BASIC METABOLIC PANEL 2022-06-30 05:37:00 [facility] CBC W/PLT COUNT & AUTO 2022-06-30 05:37:00 [facility] CBC W/PLT COUNT & AUTO 2022-06-30 05:37:00 [facility] BASIC METABOLIC PANEL 2022-06-29 03:52[facility]00 [facility]O 2022-06-29 03:52[facility]00 [facility] & AUTO 2022-06-29 03:52[facility] [facility] [facility]BD[facility]EN/PELVIS WITH IV 2022-06-28 16:53:00 Eyad [facility] CONTRAST [place] CT CHEST WITH IV CONTRAST 2022-06-28 16:53:[address] [facility] BASIC METABOLIC PANEL 2022-06-28 03:30:00 [facility] W/[facility]T COUNT & AUTO 2022-06-28 03:30:00 [facility] CBC W/[facility]T COUNT & AUTO 2022-06-28 03:30:00 [facility] ALPHA FETOPROTEIN (AFP), 2022-06-27 19:29:00 [facility] TUMOR MARKER [place] HCG, QUANTITATIVE, 2022-06-27 19:29:00 [facility] Center LACTATE DEHYDROGENASE 2022-06-27 19:29:00 [facility] ([facility]) [place] BASIC METABOLIC PANEL 2022-06-27 04:33:00 [facility] 2022-06-27 04:33[facility]00 [facility] & AUTO 2022-06-27 04:33[facility]00 [facility]INR 2022-06-27 [facility] AUTO 2022-06-27 04:33[facility]00 [facility] URINE [facility] 2022-06-26 13:10:00 Maurizio Mathew [facility] URINALYSIS W/ REFLEX URINE 2022-06-26 13:10:00 Maurizio Mathew Se [facility] C[facility] Center BLOOD CULTURE 2022-06-26 13:08:00 EmekapaoloMaurizio [facility] CBC W/PLT COUNT & AUTO 2022-06-26 13:02:00 EmekapaoloMaurizio [facility] DIFFERENTIAL Center CBC W/PLT COUNT & AUTO 2022-06-26 13:02:00 Maurizio Mathew [facility] DIFFERENTIAL Center SARS-COV2/INFLUENZA/RSV 2022-06-26 13:02:00 Maurizio Mathew [facility] RT-PCR Center BLOOD CULTURE 2022-06-26 13:02:00 Maurizio Mathew [facility] COMPREHENSIVE METABOLIC 2022-06-26 13:02:00 Maurizio Mathew [facility] PANEL Center PROTHROMBIN TIME/INR 2022-06-26 13:02:00 Maurizio Mathew [facility] HIGH SENSITIVITY TROPONIN 2022-06-26 13:02:00 Maurizio Mathew jimenez [facility] Center B-TYPE NATRIURETIC FACTOR 2022-06-26 13:02:00 Maurizio Mathew [facility] (BNP) [place] LACTIC ACID, VENOUS 2022-06-26 13:02:00 Maurizio Mathew [facility] ED ECG INTERPRETATION 2022-06-26 12:34:29 Maurizio Mathew [facility] XR CHEST 1 VIEW PORTABLE / 2022-06-26 12:32:00 Maurizio Mathew Se [facility] BEDSIDE Center ECG 12-LEAD 2022-06-26 12:30:54 Unknown, [facility] ECG 12-LEAD 2022-06-26 12:30:54 Unknown, [facility] ECG 12-LEAD 2022-06-26 12:30:54 Unknown, [facility] URINALYSIS 2022-06-25 03:41:00 Phu Breaux o [facility] CT ABDOMEN PELVIS W 2022-06-25 02:58:23 Phu Breaux [facility] Branch CT CHEST PULMONARY 2022-06-25 02:58:23 Phu Breaux [facility] ANGIOGRAM Medical Branch RAPID INFLUENZA A/B 2022-06-25 02:45:00 Phu Breaux [facility] COVID-19 (ID NOW RAPID 2022-06-25 02:45:00 Phu Breaux [facility] TESTING) Medical Branch LAB ONLY COVID 2022-06-25 02:45:00 Singer [facility] INTERPRETATION [facility] BLOOD CULTURE SCREEN 2022-06-25 02:07:00 Singer Phu [facility] TROPONIN I 2022-06-25 02:07:00 Singer [facility] COMP. METABOLIC PANEL 2022-06-25 02:07:00 Phu Breaux [facility] ([id number]) [facility] Branch CBC WITH DIFF 2022-06-25 02:07:00 Singer [facility] HB ECG ROUTINE & RHYTHM 2022-06-25 02:02:41 Phu Breaux [facility] STRIP [facility] Branch CONSENT/REFUSAL FOR 2022-06-25 01:53:26 Doctor Unassigned, [facility] DIAGNOSIS AND TREATMENT [place] [facility] BASIC METABOLIC PANEL (NA, 2022-06-14 12:23:00 Joyce Ott [facility] K, CL, CO2, GLUCOSE, BUN, Medica l Branch CREATININE, CA) CBC WITH DIFF 2022-06-14 12:23:00 Joyce Ott [facility] BASIC METABOLIC PANEL (NA, 2022-06-13 09:54:00 Ronald Patel [facility] K, CL, CO2, GLUCOSE, BUN, Medica l Branch CREATININE, CA) CBC WITH DIFF 2022-06-13 09:54:00 Ronald Patel [facility] BASIC METABOLIC PANEL (NA, 2022-06-12 10:41:00 Cortez Blanco [facility] K, CL, CO2, GLUCOSE, BUN, Medica l Branch CREATININE, CA) CBC WITH DIFF 2022-06-12 10:41:00 Cortez Blanco [facility] LACTIC ACID WHOLE BLOOD 2022-06-12 04:40:00 Rufus White [facility] BLOOD CULTURE SCREEN 2022-06-12 04:39:00 Rufus White [facility] BASIC METABOLIC PANEL (NA, 2022-06-12 04:37:00 Rufus White [facility] K, CL, CO2, GLUCOSE, BUN, Medica l Branch CREATININE, CA) CBC WITH DIFF 2022-06-12 04:37:00 Rufus White [facility] URINALYSIS 2022-06-12 04:37:00 Rufus White [facility] URINE CULTURE 2022-06-12 04:37:00 Rufus White [facility] AUTHORIZATION TO RELEASE 2022-06-07 06:01:00 Doctor Unassdeidra, [facility] PHI TO [facility] [place] [facility] [place] LACTIC ACID WHOLE BLOOD 2022-05-04 07:58:00 Joyce Tejada [facility] CT ABDOMEN PELVIS W 2022-05-04 07:53:24 Joyce Tejada [facility] CONTRAST [facility] URINALYSIS 2022-05-04 07:21:00 Joyce Tejada [facility] COMP. METABOLIC PANEL 2022-05-04 06:45:00 Joyce Tejada [facility] ([id number]) [facility] CBC WITH DIFF 2022-05-04 06:45:00 Joyce Te[facility]ada [facility] CONSENT/REFUSAL FOR 2022-05-04 05:28:53 Doctor Unassigned, [facility] DIAGNOSIS AND TREATMENT [place] [facility] URINE CULTURE 2022-05-02 20:05:00 Gabriella Patel [facility] MAGNESIUM 2022-04-22 08:55:00 Cortez Blanco [facility] BASIC METABOLIC PANEL (NA, 2022-04-22 08:55:00 Joyce Ott [facility] K, CL, CO2, GLUCOSE, BUN, Medica l Branch CREATININE, CA) CBC WITH DIFF 2022-04-22 08:55:00 Joyce Ott [facility] BLOOD CULTURE SCREEN 2022-04-21 19:53:00 Cortez Blanco [facility] BASIC METABOLIC PANEL (NA, 2022-04-21 09:50:00 Joyce Ott [facility] K, CL, CO2, GLUCOSE, BUN, Medica l Branch CREATININE, CA) CBC WITH DIFF 2022-04-21 09:50:00 [facility] (AUTOMATED) 2022-04-20 12:43:00 Cortez Blanco [facility] POCT GLUCOSE (AUTOMATED) 2022-04-20 09:29:00 Cortez Blanco [facility] BASIC METABOLIC PANEL (NA, 2022-04-20 09:03:00 Cortez Blanco [facility] K, CL, CO2, GLUCOSE, BUN, Medica l [place] CREATININE, CA) ALPHA FETOPROTEIN 2022-04-20 09:03:00 Amilcar Lawrence [facility] CBC WITH DIFF 2022-04-20 09:03:00 Cortez Blanco [facility] POCT GLUCOSE (AUTOMATED) 2022-04-20 00:38:00 Cortez Blanco [facility] LACTIC ACID WHOLE BLOOD 2022-04-19 18:51:00 Janessa Persaud [facility] CT ABDOMEN PELVIS W 2022-04-19 17:37:00 Janessa Persaud [facility] LACTIC ACID WHOLE BLOOD 2022-04-19 15:14:00 Janessa Persaud [facility] BLOOD CULTURE SCREEN 2022-04-19 15:12:00 Janessa Persaud [facility] COMP. METABOLIC PANEL 2022-04-19 15:12:00 Janessa Persaud [facility] ([id number]) [facility] CBC WITH DIFF 2022-04-19 15:12:00 Janessa Persaud [facility] URINALYSIS 2022-04-19 15:12:00 Janessa Persaud [facility] URINE CULTURE 2022-04-19 15:12:00 Janessa Persaud [facility] BLOOD CULTURE WORKUP 2022-04-19 15:12:00 Janessa Persaud [facility] GRAM NEGATIVE BLOOD 2022-04-19 15:12:00 Janessa Persaud [facility] PATHOGENS DNA [facility] PROBE-ANAEROBIC CONSENT/REFUSAL FOR 2022-04-19 14:38:43 Doctor Unassigned, [facility] DIAGNOSIS AND TREATMENT [place] [facility] CRITICAL CARE 2022-04-19 14:38:00 Janessa Persaud [facility] DME/SUPPLY JUSTIFICATION 2022-04-11 05:01:00 Doctor Unassigned, [facility] [place] [facility] [place] AUTHORIZATION FOR RELEASE 2022-03-30 05:01:00 Doctor Unassdeidra, [facility] Name [facility] [place] MAGNESIUM 2022-03-21 09:56:00 Perico Marsh [facility] CBC WITHOUT DIFF 2022-03-21 09:56:00 Perico Marsh [facility] BLOOD CULTURE SCREEN 2022-03-20 18:35:00 Perico Marsh [facility] BASIC METABOLIC PANEL (NA, 2022-03-20 09:51:00 Perico Marsh [facility] K, CL, CO2, GLUCOSE, BUN, Medica l Branch CREATININE, CA) MAGNESIUM 2022-03-20 09:51:00 Perico Marsh [facility] CBC WITHOUT DIFF 2022-03-20 09:51:00 Perico Marsh [facility] PREALBUMIN, SERUM 2022-03-20 09:51:00 Payton Munoz [facility] CT PELVIS W CONTRAST 2022-03-20 03:32:00 Perico Marsh [facility] BASIC METABOLIC PANEL (NA, 2022-03-17 09:08:00 Perico Marsh [facility] K, CL, CO2, GLUCOSE, BUN, Medica l Branch CREATININE, CA) MAGNESIUM 2022-03-17 09:08:00 BilPerico koo [facility] CBC WITHOUT DIFF 2022-03-17 09:08:00 Perico Marsh [facility] IR BIOPSY BONE DEEP WITH 2022 20:08:00 Herminia Razo [facility] FLUORO [facility] SURGICAL PATHOLOGY EXAM 2022 19:57:00 Yen Hogue [facility] IR DRAINAGE BY CATHETER 2022 19:50:00 Lennie [facility] PERITONEAL OR [facility] [place] RETROPERITONEAL BODY FLUID 2022 19:48:00 Lennie Chan [facility] CULTURE(AEROBIC/ANAEROBIC) [facility] COMP. METABOLIC PANEL 2022 10:23:[id number] [place] CBC WITH DIFF 2022 10:23:00 Rosie, [facility] MAGNESIUM 2022 10:23:[address] [facility] CT ABDOMEN PELVIS W 2022-03-15 13:49:58 Perico Marsh [facility] CBC WITH DIFF 2022-03-15 10:08:00 Perico Marsh [facility] BASIC METABOLIC PANEL (NA, 2022-03-15 10:08:00 Perico Marsh [facility] K, CL, CO2, GLUCOSE, BUN, [facility] CREATININE, CA) MAGNESIUM 2022-03-15 10:08:00 Perico Marsh [facility] HEPATIC FUNCTION PANEL 2022-03-15 10:08:00 Joanna, [facility] ([id number]) (ALB,T.PRO,[facility] T,BU/BC,ALT,AST,ALK PHOS) PREALBUMIN, SERUM 2022-03-15 10:08:00 Joanna, [facility] MR PELVIS W WO CONTRAST 2022-03-15 09:30:00 [facility] URINALYSIS 2022-03-14 22:50:00 Perico Marsh [facility] URINE CULTURE 2022-03-14 22:50:00 [facility] BLOOD CULTURE SCREEN 2022-03-14 22:49:00 BilPerico koo [facility] BLOOD CULTURE WORKUP 2022-03-14 22:49:00 BilPerico koo [facility] BLOOD CULTURE SCREEN 2022-03-14 22:48:00 BilPerico koo [facility] BLOOD CULTURE WORKUP 2022-03-14 22:48:00 BilPerico koo [facility] CBC WITH DIFF 2022-03-14 19:43:00 Perico Marsh [facility] BASIC METABOLIC PANEL (NA, 2022-03-14 19:43:00 Perico Marsh [facility] K, CL, CO2, GLUCOSE, BUN, Medica l Branch CREATININE, CA) SEDIMENTATION RATE 2022-03-14 19:43:00 Perico Marsh [facility] C-REACTIVE PROTEIN 2022-03-14 19:43:00 Perico Marsh [facility] HOSPITAL ADMISSION 2022-03-14 05:01:00 Doctor Unasana, [facility] [place] [facility] SURGICAL PATHOLOGY EXAM 2022-03-01 17:39:00 Juliette Downing [facility] INTUBATION 2022-03-01 17:05:00 Yee Neff [facility] RADICAL ORCHIECTOMY 2022-03-01 16:44:00 Juliette Downing [facility] DAY SURGERY - ADC 2022-03-01 05:01:00 Doctor Dagmar, [facility] [place] [facility] COVID-19 (ID NOW RAPID 2022-02-28 15:35:00 Juliette Downing [facility] TESTING) [facility] [place] LAB ONLY COVID 2022-02-28 15:35:00 Juliette Downing [facility] [place] INTERPRETATION [facility] CONSENT/REFUSAL FOR 2022-02-28 15:28:50 Doctor Dagmar, [facility] DIAGNOSIS AND TREATMENT [place] [facility] ASSIGNMENT OF BENEFITS 2022-02-28 15:28:29 Doctor Unassdeidra, [facility] Name [facility] LACTATE DEHYDROGENASE 2022-02-22 18:11:00 [facility] ALPHA FETOPROTEIN 2022-02-22 18:11:00 [facility] TOTAL BETA HCG ASSAY 2022-02-22 18:11:00 [facility] COMP. METABOLIC PANEL 2022-02-22 18:11:00 [facility] ([id number]) [facility] DISCLOSURE AND CONSENT, 2022-02-22 05:01:00 Doctor Unassigned, [facility] MEDICAL AND SURGICAL [place] [facility] PROCEDURES US SCROTUM AND CONTENTS 2022-02-17 00:06:00 [facility] URINE CULTURE 2022-02-12 21:19:00 [facility] DME/SUPPLY JUSTIFICATION 2022-02-12 05:01:00 Doctor Unassigned, [facility] [place] [facility] URINE CULTURE 2022-01-25 19:01:00 [facility] ECG 12-LEAD 2021-04-20 08:11:57 Unknown, [facility] ECG 12-LEAD 2021-04-20 08:11:57 Unknown, [facility] CBC W/PLT COUNT & AUTO 2021-04-20 05:25:00 Ruel Flores [facility] DIFFERENTIAL Center BASIC METABOLIC PANEL (7) 2021-04-20 05:25:00 Halina Flores [facility] CBC W/PLT COUNT & AUTO 2021-04-20 05:25:00 Ruel Flores [facility] DIFFERENTIAL Center CBC W/PLT COUNT & AUTO 2021-04-19 05:28:00 Ruel Flores [facility] DIFFERENTIAL [place] BASIC METABOLIC PANEL (7) 2021-04-19 05:28:00 Halina Flores [facility] CBC W/PLT COUNT & AUTO 2021-04-19 05:28:00 [facility] DIFFERENTIAL Center STD PANEL - CT/GC RNA 2021-04-18 10:18:00 Indu Gambino [facility] ALPHA FETOPROTEIN (AFP), 2021-04-18 10:17:00 Pushpa Jacobsen [facility] TUMOR MARKER [facility] CBC W/PLT COUNT & AUTO 2021-04-18 05:15:00 Ruel Flores [facility] DIFFERENTIAL Center COMPREHENSIVE METABOLIC 2021-04-18 05:15:00 Mark Ruel [facility] PANEL Center HC LAB HIV-1 AG W/HIV-1&2 2021-04-18 05:15:00 Halina Flores [facility] AB Center RPR 2021-04-18 05:15:00 Mark [facility] HEPATITIS PANEL, ACUTE 2021-04-18 05:15:00 Ruel Flores [facility] LACTATE DEHYDROGENASE 2021-04-18 05:15:00 [facility] HCG, QUANTITATIVE, 2021-04-18 05:15:00 Lonetree [facility] CBC W/PLT COUNT & AUTO 2021-04-18 05:15:00 Ruel Flores [facility] (CELLAVISION MANUAL DIFF) 2021-04-18 05:15:00 Halina Flores [facility] Plan of Care Planned Activity Planned Date Details Comments Source Future Scheduled 2023-07-[address] [facility] 00[facility] (12+) [code = Tobacco Cessation Counseling and Screening (12+)] Future Scheduled 2023-07-[address] [facility] 00:00:00 [facility] (12+) [code = Tobacco Cessation Counseling and Screening (12+)] Future Scheduled 2023-07-[address] [facility] 00:00:00 [facility] (12+) [code = Tobacco Cessation Counseling and Screening (12+)] Future Scheduled 2023-07-[address] [facility] 00:00:00 [facility] (12+) [code = Tobacco Cessation Counseling and Screening (12+)] Future Scheduled 2023-07-[address] [facility] 00:00:00 [facility] (12+) [code = Tobacco Cessation Counseling and Screening (12+)] Future Scheduled 2023-06-[address] [facility] 00:00:00 [facility] (12+) [code = Tobacco Cessation Counseling and Screening (12+)] Future Scheduled 2023-06-[address] [facility] 00:00:00 [facility] (12+) [code = Tobacco Cessation Counseling and Screening (12+)] Future Scheduled 2023-06-[address] [facility] 00:00:00 [facility] (12+) [code = Tobacco Cessation Counseling and Screening (12+)] Future Scheduled 2022-07-[address] [facility] 00:00:00 (12+) [code = Medical Center DEPRESSION SCREENING (12+)] Future Scheduled 2022-07-[address] [facility] 00:00:00 (12+) [code = Medical Center DEPRESSION SCREENING (12+)] Future Scheduled 2022-07-[address] [facility] 00:00:00 (12+) [code = Medical Center DEPRESSION SCREENING (12+)] Future Scheduled 2022-07-[address] [facility] 00:00:00 (12+) [code = Medical Center DEPRESSION SCREENING (12+)] Future Scheduled 2022-07-[address] [facility] 00:00:00 (12+) [code = Medical Center DEPRESSION SCREENING (12+)] Future Scheduled 2022-07-[address] [facility] 00:00:00 (12+) [code = Medical Center DEPRESSION SCREENING (12+)] Future Scheduled 2022-07-[address] [facility] 00:00:00 (12+) [code = Medical Center DEPRESSION SCREENING (12+)] Future Scheduled 2022-04-[address] [facility] 00:00:00 [facility] Screening (12+) [code = Tobacco Cessation Counseling and Screening (12+)] Future Scheduled 2022-04-[address] [facility] 00:00:00 [facility] Screening (12+) [code = Tobacco Cessation Counseling and Screening (12+)] Future Scheduled 2022-04-[address] [facility] 00:00:00 [facility] Screening (12+) [code = Tobacco Cessation Counseling and Screening (12+)] Future Scheduled 2022-03-08 INFLUENZA VACCINE (#1) [facility]00 [code = INFLUENZA Medical Ce nter VACCINE (#1)] Future Scheduled 2022-03-08 INFLUENZA VACCINE (#1) [facility]:00:00 [code = INFLUENZA Medical Ce nter VACCINE (#1)] Future Scheduled 2022-03-08 INFLUENZA VACCINE (#1) [facility] 00:00:00 [code = INFLUENZA Medical Ce nter VACCINE (#1)] Future Scheduled 2022-03-08 INFLUENZA VACCINE (#1) [facility] 00:00:00 [code = INFLUENZA Medical Ce nter VACCINE (#1)] Future Scheduled 2022-03-08 INFLUENZA VACCINE (#1) [facility] 00:00:00 [code = INFLUENZA Medical Ce nter VACCINE (#1)] Future Scheduled 2022-03-08 INFLUENZA VACCINE (#1) [facility] 00:00:00 [code = INFLUENZA Medical Ce nter VACCINE (#1)] Future Scheduled 2022-03-08 INFLUENZA VACCINE (#1) [facility] 00:00:00 [code = INFLUENZA Medical Ce nter VACCINE (#1)] Future Scheduled 2022-03-08 INFLUENZA VACCINE (#1) [facility] 00:00:00 [code = INFLUENZA Medical Ce nter VACCINE (#1)] Future Scheduled 2022-03-08 INFLUENZA VACCINE (#1) [facility] 00:00:00 [code = INFLUENZA Medical Ce nter VACCINE (#1)] Future Scheduled 2022-03-08 INFLUENZA VACCINE (#1) [facility] 00:00:00 [code = INFLUENZA Medical Ce nter VACCINE (#1)] Future Scheduled 2022-03-08 INFLUENZA VACCINE (#1) [facility] 00:00:00 [code = INFLUENZA Medical Ce nter VACCINE (#1)] Future Scheduled 2022-03-08 INFLUENZA VACCINE (#1) [facility] 00:00:00 [code = INFLUENZA Medical Ce nter VACCINE (#1)] Future Scheduled 2022-03-08 INFLUENZA VACCINE (#1) [facility] 00:00:00 [code = INFLUENZA Medical Ce nter VACCINE (#1)] Future Scheduled 2021-07-[address] [facility] 00:00:00 (12+) [code = Medical Center DEPRESSION SCREENING (12+)] Future Scheduled 2021-07-[address] [facility] 00:00:00 (12+) [code = Medical Center DEPRESSION SCREENING (12+)] Future Scheduled 2021-07-[address] [facility] 00:00:00 (12+) [code = Medical Center DEPRESSION SCREENING (12+)] Future Scheduled 2021-07-[address] [facility] 00:00:00 (12+) [code = Medical Center DEPRESSION SCREENING (12+)] Future Scheduled 2021-07-[address] [facility] 00:00:00 (12+) [code = Medical Center DEPRESSION SCREENING (12+)] Future Scheduled 2021-07-[address] [facility] 00:00:00 (12+) [code = Medical Center DEPRESSION SCREENING (12+)] Future Scheduled [address] [facility]:00 (procedure) [code = [facility] Center [id number]] Future Scheduled [address] [facility] 00:00:00 (procedure) [code = [facility] [id number]] Future Scheduled [address] [facility] 00:00:00 (procedure) [code = Medical Center [id number]] Future Scheduled [address] [facility] 00:00:00 (procedure) [code = [facility] [id number]] Future Scheduled [address] [facility] 00:00:00 (procedure) [code = [facility] [id number]] Future Scheduled [address] [facility] 00:00:00 (procedure) [code = [facility] [id number]] Future Scheduled [address] [facility] 00:00:00 (procedure) [code = [facility] [id number]] Future Scheduled [address] [facility] 00:00:00 (procedure) [code = [facility] [id number]] Future Scheduled [address] [facility] 00:00:00 (procedure) [code = [facility] [id number]] Future Scheduled [address] [facility] 00:00:00 (procedure) [code = [facility] 33016642] Future Scheduled [address] [facility] 00:[facility]:00 (procedure) [code = [facility] 74874912] Future Scheduled [address] [facility] 00:00:00 (procedure) [code = [facility] [id number]] Future Scheduled [address] [facility] 00:00:00 (procedure) [code = [facility] 86364944] Future Scheduled 2004 DTAP/TDAP/TD VACCINES CH I [...] DTAP/TDAP/TD VACCINES (1 - Tdap)] Future Scheduled [address] [facility] 00:00:00 0-64 YRS (1 - PCV) Medical C enter [code = PNEUMOCOCCAL VACCINE 0-64 YRS (1 - PCV)] Future Scheduled [address] [facility] Test 00:00:00 0-64 YRS (1 - PCV) Medical C enter [code = PNEUMOCOCCAL VACCINE 0-64 YRS (1 - PCV)] Future Scheduled [address] [facility] 00:00:00 0-64 YRS (1 - PCV) Medical C enter [code = PNEUMOCOCCAL VACCINE 0-64 YRS (1 - PCV)] Future Scheduled [address] [facility] Test 00:00:00 0-64 YRS (1 - PCV) Medical C enter [code = PNEUMOCOCCAL VACCINE 0-64 YRS (1 - PCV)] Future Scheduled [address] [facility] Test 00:00:00 0-64 YRS (1 - PCV) Medical C enter [code = PNEUMOCOCCAL VACCINE 0-64 YRS (1 - PCV)] Future Scheduled [address] [facility] Test 00:00:00 0-64 YRS (1 - PCV) Medical C enter [code = PNEUMOCOCCAL VACCINE 0-64 YRS (1 - PCV)] Future Scheduled [address] [facility] 00:00:00 0-64 YRS (1 - PCV) Medical C enter [code = PNEUMOCOCCAL VACCINE 0-64 YRS (1 - PCV)] Future Scheduled [address] [facility] 00:00:00 0-64 YRS (1 - PCV) Medical C enter [code = PNEUMOCOCCAL VACCINE 0-64 YRS (1 - PCV)] Future Scheduled 1985 COVID-19 VACCINE (#1) CH [...] = COVID-[address] VACCINE (#1)] Medication 2022-08-22 senna-docusate [facility] 00:00:00 (SENOKOT S) 8.6-50 mg [facility]ica [facility] Center per tablet [code = 271786] Medication 2022-08-[address] [facility] 00:00:00 (PROTONIX) [address] tablet [code = 277480] Encounters Start End Encounter Admission Attending Care Care Encounter Source Date/Time Date/Time Type Type Clinicians Facility Department ID [facility]22-[facility] [id number] 00:00:00 Encounter [facility] 2022-03-14 Inpatient U [facility]OMY [facility] [id number] Univers 11:55:00 TIM phipps [facility] 2022-08-08 2022-08-21 Inpatient ER VICENTEMARIEL [facility] [id number] SLE 06:12:00 14:13:00 NAVEEN 2022-08-08 2022-08-21 [facility] Shannan Price [facility] [id number] [facility] 06:12:00 14:13:00 Encounter Bette Johnson Naveen [facility] 2022-08-06 2022-08-06 Outpatient R JOSEPH [facility] [id number] Univers 13:00:00 13:00:00 JARAD phipps [facility] 2022-07-31 2022-07-31 Outpatient HAZEL BRUNODANICA [facility] [id number] [facility] 11:58:02 14:24:59 Ruth 2022-07-24 2022-07-27 Inpatient ER EYAD NAVEEN [facility] Emergency 20 [id number] SLE 20:58:00 14:21:00 2022-07-24 2022[facility]07[facility] [id number] 20:58:00 14:21:00 Encounter Enid Butt, [facility] Medical RojasNaveen castellano [facility] er Efrain Fontenot 2022-07-24 2022-07-27 [facility] [id number] 20:58:00 14:21:00 [facility] er Efrain Fontenot 2022-07-24 2022-07-[address] [facility] [id number] 00:00:00 00:00:00 Only [facility] 2022-07-24 2022-07-24 Travel [facility] [id number] [facility] 00:[facility]:00 00:00:00 [facility] 2022-07-24 2022-07-[address] [facility] [id number] 00:00:00 00:00:00 Only [facility] 2022-07-24 2022-07-24 Travel [facility] [id number] [facility] 00:[facility]:00 00:00:00 [facility] 2022-07-19 2022-07-[address] [facility] [id number] 00:00:00 00:00:00 Only [facility] 2022-07-19 2022-07-[address] [facility] [id number] 00:00:00 00:00:00 Only [facility] 2022-06-26 2022-07-18 Inpatient ER [facility] Emergency [id number] [facility] 12:22:00 13:33:00 SENTHIL 2022-06-26 2022-07-18 [facility] Maurizio [facility] [id number] 12:22:00 13:33:00 Encounter Beth Medina, [facility], [facility], [facility], [facility], Senthil [facility] 2022-06-26 2022-07-18 [facility] [id number] 12:22:00 13:33:00 Encounter Beth Medina [facility], [facility], [facility], [facility], [facility], Senthil [facility] 2022-07-16 2022-07-16 Orders Doctor GARIBAY 1.2.840.114 [id number] Univers 00:00:00 00:00:00 Only Unassigned, ANJU 350.1.13.10 ity [facility] 4.2.7.2.686 Tamir as [id number] [address] 2022-07-13 2022-07-13 Outpatient R ALISE MUÑOZ [facility] [id number] Univers 10:40:00 10:40:00 ity of [facility] 2022-07-12 2022-07-12 Telephone Shruthi Hearn 1.2.840.114 [id number] Univers 00:00:00 00:00:00 Y HEALTH 350.1.13.10 i ty [place] [id number] [address] 2022-07-11 2022-07-11 Telephone Jorge [facility] 1.2.255.170 [id number] Univers 00:00:00 00:00:00 Gabriella A HEALTH 350.1.13.10 i ty of [place] 4.2.7.2.686 Tamir as BIRGETTE?BLEA [id number] Vt dical [address] MEDICAL OFFICE BUILDING 2022-07-07 2022-07-[address] [facility] [id number] 00:00:00 00:00:00 [facility] 2022-07-07 2022-07-[address] [facility] [id number] 00:00:00 00:00:00 ion [facility] 2022-07-06 2022-07-[address] [facility] [id number] 10:50:00 12:43:00 Event Rocael [facility] 2022-07-06 2022-07-[address] [facility] [id number] 10:50:00 12:43:00 Event Rocael [facility] 2022-07-06 2022-07-06 Outpatient ALISE RAUSCH [facility] [id number] Univers 10:00:00 10:00:00 ity of [facility] 2022-07-06 2022-07-06 [facility] [id number] 08:00:00 08:37:00 Surgeon [facility] 2022-07-06 2022-07-06 [facility] [id number] 08:00:00 08:37:00 [facility] 2022-07-05 2022-07-05 Telephone Shruthi Hearn [facility] 1.2.840.114 [id number] Univers 00:00:00 00:00:00 Y HEALTH 350.1.13.10 i [place] [id number] [address] 2022-07-04 2022-07-04 Anesthesia Ruth Miller [facility] [id number] 16:23:00 16:23:00 Event [facility] 2022-07-04 2022-07-04 Anesthesia Ruth Miller [facility] [id number] 16:23:00 16:23:00 Event [facility] 2022-07-04 2022-07-04 Surgery [facility] [id number] 15:30:00 16:07:00 [facility] 2022-07-04 2022-07-04 Surgery [facility] [id number] 15:30:00 16:07:00 [facility] 2022-07-04 2022-07-04 Telephone Shruthi Hearn [facility] 1.2.840.114 [id number] Univers 00:00:00 00:00:00 Y HEALTH 350.1.13.10 i [place] [id number] [address] 2022-07-02 2022-07-[address] [facility] [id number] 16:38:00 18:50:00 [facility] 2022-07-02 2022-07-[address] [facility] [id number] 16:38:00 18:50:00 [facility] 2022-07-02 2022-07-[address] [facility] [id number] 16:30:00 18:01:00 [facility] 2022-07-02 2022-07-[address] [facility] [id number] 16:30:00 18:01:00 [facility] 2022-06-26 2022-06-26 [facility] [id number] [facility] 12:22:00 23:59:00 [facility] 2022-06-26 2022-06-26 Outpatient VOGEL, [facility] [id number] [facility] 09:41:48 15:01:20 EZEKIEL [facility] 2022-06-26 2022-06-26 Outpatient [facility] [id number] [facility] 12:22:00 12:22:00 [facility] 2022-06-26 2022-06-26 [facility]patient [facility] [id number] [facility] 00:00:00 12:21:00 [facility] 2022-06-26 2022-06-26 Transition BijalLESLY reynoldsAnatoly 1.2.840.114 [id number] Univers 00:00:00 00:00:00 of Care Sarita FRANKLIN 350.1.13.10 i ty luis VASQUEZ 4.2.7.2.686 Purnima costello [id number] [facility] [address] 2022-06-26 2022-06-26 Travel [facility] [id number] [facility] 00:00:00 00:00:00 [facility] 2022-06-26 2022-06-[address] [facility] [id number] 00:00:00 00:00:00 Only [facility] 2022-06-26 2022-06-26 Travel [facility] [id number] [facility] 00:00:00 00:00:00 [facility] 2022-06-26 2022-06-[address] [facility] [id number] 00:00:00 00:00:00 Only [facility] 2022-06-24 2022-06-25 Inpatient X DAYTON LANGEMB ERIN [id number] Univers 19:55:00 18:38:00 VAL phipps [facility] 2022-06-24 2022-06-25 [facility] Phu Breaux [facility] 1.2.840.1 14 [id number] Univers 19:55:00 18:38:00 Encounter Val LangeSERVANDO 350.1.13.10 ity of [facility] 4.2.7.2.[place] [id number] [facility] [address] 2022-06-15 2022-06-15 Transition OSVALDO Ralph 1.2.840.114 [id number] Univers 00:00:00 00:00:00 of Care Elena FRANKLIN 350.1.13.10 i ty of [place] [id number] [facility] [address] 2022-06-11 2022-06-14 Inpatient X [facility] [id number] Univers 22:14:00 17:27:00 CORTEZ phipps [facility] 2022-06-11 2022-06-14 [facility] Rufus White [facility] 1.2.840.11 [id number] Univers 22:14:00 17:27:00 Encounter Cortez Blanco EVON 350.1.13.10 ity [facility] 4.2.7.2.686 [place] [id number] [address] 2022-06-14 2022-06-14 Outpatient R JORGE [facility] [id number] Univers 11:00:00 11:00:00 GABRIELLA ity [facility] 2022-06-13 2022-06-13 [facility] 1.2.265.291 [id number] Univers 00:00:00 00:00:00 Gabriella Rose [facility] 350.1.13.10 i ty of [place] 4.2.7.2.686 Tamir as BRIGETTE?BLEA [id number] Vt benito[address] MEDICAL OFFICE BUILDING 2022-06-07 2022-06-07 Orders Doctor GARIBAY 1.2.840.114 [id number] Univers 00:00:00 00:00:00 Only Unassigned, ANJU 350.1.13.10 ity of [place] [facility] 4.2.7.2.686 Tamir as [id number] [address] 2022-06-07 2022-06-07 Telephone [facility] 1.2.784.280 [id number] Univers 00:00:00 00:00:00 Gabriella Rose HEALTH 350.1.13.10 i ty of [place] 4.2.7.2.686 Tamir as BRIGETTE?BLEA [id number] [address] MEDICAL OFFICE [facility] 2022-06-06 2022-06-06 Outpatient [facility] [id number] Univers 15:00:00 15:38:26 GABRIELLA ity [facility] 2022-06-06 2022-06-06 Office [facility] 1.2.840.114 [id number] Univers 15:00:00 15:38:26 Visit Gabriella Rose HEALTH 350.1.13.10 i ty of [place] 4.2.7.2.686 Tamir as BRIGETTE?BLEA [id number] [address] MEDICAL OFFICE [facility] 2022-06-06 2022-06-06 Telephone Alise MuñozIT 1.2.840.114 [id number] Univers 00:00:00 00:00:00 Rp Y HEALTH 350.1.13.10 i ty [place] [id number] [address] 2022-06-05 2022-06-05 Telephone [facility] 1.2.408.266 [id number] Univers 00:00:00 00:00:00 Gabriella A HEALTH 350.1.13.10 i ty of [place] 4.2.7.2.686 Tamir as BRIGETTE?BLEA [id number] [address] MEDICAL OFFICE [facility] 2022-05-24 2022-05-24 Multidisci CHAS Feliz 1.2.840.114 [id number] Univers 00:00:00 00:00:00 plinary Eran ANJU 350.1.13.10 it y of [facility] 4.2.7.2.686 [place] [id number] [facility] [address] 2022-05-23 2022-05-23 Case Shruthi Hearn [facility] 1.2.840.114 [id number] Univers 00:00:00 00:00:00 Management Y HEALTH 350.1.13.10 it[place] [id number] [address] 2022-05-16 2022-05-16 Outpatient R DARYL [facility] [id number] Univers 10:30:00 10:30:00 YUMI celisy o f [facility] 2022-05-14 2022-05-14 Health Practice Manager [facility] 1.2.840.114 [id number] Univers 13:30:00 13:45:00 Visit Alise Muñoz Rp Y HEALTH 350.1.13.10 ity of [place] [id number] [facility] [address] 2022-05-14 2022-05-14 Outpatient R ALISE MUÑOZ [facility] [id number] Univers 11:40:00 12:46:49 ity of [facility] 2022-05-14 2022-05-14 Office Alise Muñoz 1.2.840.114 [id number] Univers 11:40:00 12:46:49 Visit Rp H 350.1.13.10 it y of BUILDING 4.2.7.2.686 Tamir as [id number] [address] 2022-05-14 2022-05-14 Case Shruthi Hearn 1.2.840.114 [id number] Univers 00:00:00 00:00:00 Management H 350.1.13.10 ity of BUILDING 4.2.7.2.686 Tamir as [id number] [address] 2022-05-04 2022-05-04 Emergency Wilfredo YA [facility] ERT [id number] Univers 00:39:00 04:59:00 JOSE JUAN ity of [facility] 2022-05-04 2022-05-04 Emergency TejadaJoyce scott [facility] 1.2.840.1 14 [id number] Univers 00:39:00 04:59:00 Bhakti Naalehu EVON 350.1.13.10 ity of [facility] 4.2.7.2.686 [place] [id number] [facility] [address] 2022-05-02 2022-05-02 Health Practice Manager Lab, Ang - Db [facility] 1.2.840.1 14 [id number] Univers 14:45:00 15:00:00 Visit JorgeGabriella vasques [facility] 350.1.13.10 ity of [facility] 4.2.7.2.686 Tamir as BRIGETTE?BLEA [id number] [facility] [address] MEDICAL OFFICE [facility] 2022-05-02 2022-05-02 [facility] [id number] Univers 14:00:00 14:47:36 [facility] 2022-05-02 2022-05-02 Office [facility] 1.2.840.114 [id number] Univers 14:00:00 14:47:36 Visit Gabriella Rose [facility] 350.1.13.10 i ty of [facility] 4.2.7.2.686 Tamir as BRIGETTE?BLEA [id number] [facility] 044 [facility] OFFICE [facility] 2022-04-27 2022-04-27 [facility] [id number] Univers 11:00:00 11:00:00 [facility]A [facility] 2022-04-24 2022-04-24 Transition OSVALDO Ralph 1.2.840.114 [id number] Univers 00:00:00 00:00:00 of Care Elena FRANKLIN 350.1.13.10 i ty of [place] [id number] [facility] [address] 2022-04-24 2022-04-24 Telephone Shruthi Hearn 1.2.840.114 [id number] Univers 00:00:00 00:00:00 H 350.1.13.10 it y of [facility] 4.2.7.2.686 Tamir as [id number] [facility] [address] 2022-04-19 2022-04-22 Inpatient X TATE [facility] ERIN [id number] Univers 09:48:00 16:30:00 CORTEZ moise [facility] 2022-04-19 2022-04-22 [facility] Janessa Persaud [facility] 1.2.840. 114 [id number] Univers 09:48:00 16:30:00 Encounter Cortez Blanco EVON 350.1.13.10 ity of [place] 4.2.7.2.[place] [id number] [facility] [address] 2022-04-19 2022-04-19 Telephone Alise Muñoz 1.2.840.114 [id number] Univers 00:00:00 00:00:00 Rp H 350.1.13.10 it y of [facility] 4.2.7.2.686 Tamir as [id number] [facility] [address] 2022-04-16 2022-04-16 [facility] [id number] Univers 13:00:00 14:00:58 JARAD [facility] 2022-04-16 2022-04-16 Office [facility] 1.2.840.114 [id number] Univers 13:00:00 14:00:58 Visit Jarad RENEE 350.1.13.10 ity of [place].2.[place] [facility] [id number] Vt dical [facility] [address] [facility] 2022-04-11 2022-04-11 Orders Doctor CHAS 1.2.840.114 [id number] Univers 00:00:00 00:00:00 Only Unassigned, ANJU 350.1.13.10 ity of [place] [facility] 4.2.7.2.686 Tamir as [id number] [facility] [address] 2022-04-05 2022-04-05 [facility] [id number] Univers 13:45:00 14:11:53 JULIETTE [facility] 2022-04-05 2022-04-05 Office [facility] 1.2.840.114 [id number] Univers 13:45:00 14:11:53 Visit Juliette RENEE 350.1.13.10 i ty of [place].7.2.[place] [id number] Vt dical JOSEPH 204 [facility] 2022-04-04 2022-04-04 Health Practice Manager Lab, Ang - Db [facility] 1.2.840.1 14 [id number] Univers 11:30:00 11:45:00 Visit Gabriella Patel HEALTH 350.1.13.10 ity of [facility] 4.2.7.2.686 Tamir as BRIGETTE?BLEA [id number] Vt martha ALTENZIN [address] MEDICAL OFFICE [facility] 2022-04-04 2022-04-04 Outpatient R JORGE [facility] [id number] Univers 11:00:00 11:18:52 GABRIELLA ity of [facility] 2022-04-04 2022-04-04 Office Jorge [facility] 1.2.840.114 [id number] Univers 11:00:00 11:18:52 Visit Gabriella Rose [facility] 350.1.13.10 i ty of [place] 4.2.7.2.686 Tamir as BRIGETTE?BLEA 523.8666056 Vt benitohayes MELENDEZ [address] MEDICAL OFFICE [facility] 2022-03-30 2022-03-30 Outpatient R ALISE MUÑOZ [facility] [id number] Univers 12:00:00 13:49:33 ity of [facility] 2022-03-30 2022-03-30 Office Alise Muñoz 1.2.840.114 [id number] Univers 12:00:00 13:49:33 Visit Rp H 350.1.13.10 it y of [facility] 4.2.7.2.686 Tamir as [id number] [facility] [address] 2022-03-30 2022-03-30 Orders Doctor GARIBAY 1.2.840.114 [id number] Univers 00:00:00 00:00:00 Only Unassigned, ANJU 350.1.13.10 ity of [place] [facility] 4.2.7.2.686 Tamir as [id number] [facility] [address] 2022-03-28 2022-03-28 Telephone [facility] 1.2.840.114 [id number] Univers 00:00:00 00:00:00 Juliette RENEE 350.1.13.10 i ty of [place] 4.2.7.2.686 Purnima costello PROFESSIO 443.6773002 Vt dical NAL [address] BUILDING 2022-03-22 2022-03-22 Transition Ralph, 1.2.840.0 [id number] Univers 00:00:00 00:00:00 of Care Elena Reyes 11089.1.1 ity of 3.104.2.7 [place] .3.508891 Medica l .[address] 2022-03-14 2022-03-21 [facility] [id number] Univers 11:55:00 15:30:00 TIM phipps [facility] 2022-03-14 2022-03-21 Hospital Naomy, 1.2.840.9 [id number] Univers 11:55:00 15:30:00 Encounter Tim 40334.1.1 it y of 3.104.2.7 [place] .3.728583 Medica l .[address] [place] 2022-03-14 2022-03-14 Travel 1.2.840.1 1.2.047.954 [id number] Univers 00:00:00 00:00:00 27453.1.1 350.1.13.10 ity of 3.104.2.7 4[place]7.3.698 [place] .3.568354 084.8 Medica l .[address] [place] 2022-03-09 2022-03-09 Telephone Emil, 1.2.840.1 [id number] Univers 00:00:00 00:00:00 Juliette 95333.1.1 ity of 3.104.2.7 [place] .3.778960 Medica l .[address] [place] 2022-03-05 2022-03-05 Outpatient R JOSEPH [facility] [id number] Univers 13:00:00 13:00:00 JARAD phipps [facility] 2022-03-01 2022-03-01 Outpatient R [facility] [id number] Univers 08:43:00 14:19:00 JULIETTE ity of [facility] 2022-03-01 2022-03-01 [facility] 1.2.204.549 [id number] Univers 08:43:00 14:19:00 [facility] 350.1.13.10 ity of [facility] 4.2.7.2.686 [place] SUR[place]ICAL [id number] [facility] CENTER [address] 2022-03-01 2022-03-01 [facility] 1.2.840.2 [id number] Univers 08:43:00 14:19:00 Encounter Juliette 06239.1.1 it y of 3.104.2.7 [place] .3.067308 Medica l .8 Branch 2022-03-01 2022-03-01 Anesthesia Chas Callahan 1.2.840.8 [id number] Univers 12:00:00 13:03:00 Event Yee Neff T 10499.1.1 ity of 3.104.2.7 [place] .3.164362 Medica l .8 Branch 2022-03-01 2022-03-01 Surgery [facility] 1.2.840.114 [id number] Univers 11:15:00 12:55:00 Juliette STOCKTON 350.1.13.10 i ty [facility] 4.2.[place] [id number] [facility] CENTER [address] 2022-03-01 2022-03-01 Surgery [facility] 1.2.840.6 [id number] Univers 11:15:00 12:55:00 Juliette 05299.1.1 ity of 3.104.2.7 [place] .3.602821 Medica l .8 Branch 2022-03-01 2022-03-01 Telephone [facility] 1.2.840.114 [id number] Univers 00:00:00 00:00:[facility]1.13.10 it y of [facility] 4.2.7.2.686 [facility] - [phone] Med ical MDA [address] 2022-03-01 2022-03-01 Telephone Emil 1.2.840.3 [id number] Univers 00:00:00 00:00:00 Juliette 38896.1.1 ity of 3.104.2.7 [place] .3.149184 Medica l .8 Branch 2022-02-28 2022-02-28 Laboratory Only, Adc Test [facility] 1.2.840. 114 [id number] Univers 10:15:00 10:30:00 Only Maurizio Carpenter 350.1.13.10 ity of [place] 4.2.7.2.686 [facility] [id number] [facility] [address] [place] 2022-02-28 2022-02-28 Laboratory Maurizio Carpenter 1.2.840.9 [id number] Univers 10:15:00 10:30:00 Only Only, Adc Test 37817.1.1 ity of 3.104.2.7 [place] .3.882976 Medica l .8 Branch 2022-02-28 2022-02-28 Outpatient R KALLIE, [facility] [id number] Univers 10:15:00 10:15:00 MAURIZIO ity of [facility] 2022-02-23 2022-02-23 Travel 1.2.840.1 1.2.253.389 [id number] Univers 00:00:00 00:00:00 26312.1.1 350.1.13.10 ity of 3.104.2.7 4.2.7.3.698 [place] .3.562407 084.8 Medica l .8 Branch 2022-02-22 2022-02-22 Health Practice Manager 2, Adc Lab [facility] 1.2.840.114 [id number] Univers 13:15:00 13:30:00 Visit Juliette Downing 350.1.13.10 ity of [place] 4.2.7.2.686 [id number] [facility] 2022-02-22 2022-02-22 Health Practice Manager Juliette Downing 1.2.840.5 [id number] Univers 13:15:00 13:30:00 Visit 2, [facility] Lab 69204.1.1 i ty of 3.104.2.7 [place] .3.461362 Medica l .[address] [place] 2022-02-22 2022-02-22 [facility] [id number] Univers 13:15:00 13:15:00 JULIETTE ity of [facility] 2022-02-22 2022-02-22 Office [facility] [facility] 1.2.840.114 [id number] Univers 12:30:00 12:51:57 Visit [facility] 350.1.13.10 i ty of [facility] [place].2.[place] [phone] Vt dical NAL 204 [facility] 2022-02-22 2022-02-22 Outpatient [facility] [id number] Univers 12:30:00 12:51:57 JULIETTE ity of [facility] 2022-02-22 2022-02-22 Office Emil, 1.2.840.1 [id number] Univers 12:30:00 12:51:57 Visit [facility] 59750.1.1 ity of 3.104.2.7 [place] .3.308794 Medica l .8 [place] 2022-02-22 2022-02-22 Travel 1.2.840.1 1.2.225.380 [id number] 0771 Univers 00:00:00 00:00:00 65318.1.1 350.1.13.10 ity of 3.104.2.7 4.[place].3.698 [place] .3.981126 084.8 Medica l .8 [place] 2022-02-20 2022-02-20 Telephone [facility] 1.2.840.114 [id number] Univers 00:00:00 00:00:00 [facility] HEALTH 350.1.13.10 it y of [place].2.[place] CENTER - [phone] [facility] [address] 2022-02-20 2022-02-20 Telephone [facility], 1.2.840.3 [id number] Univers 00:00:00 00:00:00 Juliette 96826.1.1 ity of 3.104.2.7 [place] .3.481388 Medica l .8 [place] 2022-02-16 2022-02-16 Outpatient R [facility] [id number] Univers 18:01:45 23:59:00 EVELINE ity of [facility] 2022-02-16 2022-02-16 [facility] 1.2.840.114 [id number] Univers 18:01:45 23:59:00 Encounter Eveline RENEE 350.1.13.10 ity of [place] 4.2.7.2.686 [facility] [place] [phone] [facility] 806 [place] 2022-02-16 2022-02-16 [facility], 1.2.840.8 [id number] Univers 18:01:45 23:59:00 Encounter Eveline 19841.1.1 ity of 3.104.2.7 [place] .3.463572 Medica l .8 [place] 2022-02-12 2022-02-12 [facility] [id number] Univers 14:30:00 15:25:46 JULIETTE ity [facility] 2022-02-12 2022-02-12 Office [facility] 1.2.840.114 [id number] Univers 14:30:00 15:25:46 Visit Juliette RENEE 350.1.13.10 i ty of [place] 4.2.7.2.686 [facility] [phone] Vt dical NAL [address] [facility] 2022-02-12 2022-02-12 Office Emil, 1.2.840.3 [id number] Univers 14:30:00 15:25:46 Visit Juliette 33211.1.1 ity of 3.104.2.7 [place] .3.878195 Medica l .8 [place] 2022-02-12 2022-02-12 Hospital Kley, 1.2.840.4 [id number] Univers 10:00:00 10:00:00 Encounter Eveline 81097.1.1 ity of 3.104.2.7 [place] .3.300632 Medica l .8 [place] 2022-02-12 2022-02-12 Travel 1.2.840.1 1.2.538.108 [id number] 0715 Univers 00:00:00 00:00:00 08108.1.1 350.1.13.10 ity of 3.104.2.7 4.[place].7.3.698 [place] .3.352852 084.8 Medica l .8 [place] 2022-02-06 2022-02-06 [facility] [id number] Univers 09:30:00 09:30:00 YUMI phipps o f [facility] 2022-01-25 2022-01-25 [facility] [id number] Univers 13:30:00 14:06:47 [facility]22-[facility]-25 2022-01-25 Office [facility] 1.2.840.114 [id number] Univers 13:30:00 14:06:47 Visit [facility] 350.1.13.10 ity [facility] 4.2.7.2.686 Tamir as BRIGETTE?BLEA [phone] [address] MEDICAL OFFICE [facility] 2022-01-25 2022-01-25 Outpatient [facility] [id number] Univers 13:30:00 14:06:47 EVELINE ity [facility] [place] [facility] 2022-01-25 2022-01-25 Office [facility] 1.2.840.114 [id number] Univers 13:30:00 14:06:47 Visit [facility] 350.1.13.10 ity [facility] 4.2.7.2.686 Tamir as BRIGETTE?BLEA [phone] [address] OFFICE [facility] 2022-01-25 2022-01-25 Outpatient [facility] [id number] Univers 13:30:00 14:06:47 EVELINE ity of [facility] 2022-01-25 2022-01-25 Office Gutierrez, 1.2.840.9 [id number] Univers 13:30:00 14:06:47 Visit Eveline 48011.1.1 it y of 3.104.2.7 [place] .3.258325 Medica l .8 [place] 2022-01-25 2022-01-25 Travel 1.2.840.1 1.2.720.835 [id number] 8503 Univers 00:00:00 00:00:00 84497.1.1 350.1.13.10 ity of 3.104.2.7 4.2.7.3.698 [place] .3.382526 084.8 Medica l [address] [place] [address] 2022-01-24 2022-01-24 [facility]phone [facility] 1.2.106.811 1139 1947 Univers 00:00:00 00:00:00 Gabriella A HEALTH 350.1.13.10 i ty of [place] 4.2.7.2.686 Tamir as BRIGETTE?BLEA [id number] [address] OFFICE [facility] 2022-01-24 2022-01-24 Telephone Jorge, 1.2.840.2 [id number] Univers 00:00:00 00:00:00 Gabriella A 69764.1.1 ity of 3.104.2.7 [place] .3.304121 [facility] [address] 2022-01-22 2022-01-22 Outpatient Je GAONA, [facility] [id number] Univers 09:30:00 09:30:00 HASMUKH ity of [facility] 2021-12-25 2021-12-25 [facility] 1.2.472.147 [id number] Univers 00:00:00 00:00:00 Gabriella A HEALTH 350.1.13.10 i ty of [place] 4.2.7.2.686 Tamir as BRIGETTE?BLEA [phone] [address] MEDICAL OFFICE [facility] 2021-12-252021-12-25 Telephone Jorge, 1.2.840.6 [id number] 91100 Univers 00:00:00 00:00:00 Gabriella Rose 17233.1.1 ity of 3.104.2.7 [place] .3.759710 Medica l .8 [place] 2021-12-01 2021-12-01 Orders Doctor CHAS 1.2.840.114 [id number] Univers 00:00:00 00:00:00 Only Unassigned, ANJU 350.1.13.10 ity of [place] [facility] 4.2.7.2.686 Tamir as [phone] [facility] 009 [place] 2021-11-20 2021-11-20 Telephone Jorge, [facility] 1.2.072.019 [id number] [id number] Univers 00:00:00 00:00:00 Gabriella Rose HEALTH 350.1.13.10 i ty [facility] 4.2.7.2.686 Tamir as BRIGETTE?BLEA [phone] Vt dical KNEY [address] [place] MEDICAL OFFICE [facility] 2021-11-14 2021-11-14 Patient Gary, [facility] 1.2.840.114 [id number] Univers 00:00:00 00:00:00 Outreach Katt RENEE 350.1.13.10 ity of [facility] 4.2.7.2.686 [place] [phone] Vt dical NAL 201 [facility] 2021-11-14 2021-11-14 Patient Gary [facility] 1.2.840.114 [id number] Univers 00:00:00 00:00:00 Outreach Kattrose RENEE 350.1.13.10 ity of [place] 4.2.7.2.686 [place] [id number] Vt dical NAL 201 [facility] 2021-11-13 2021-11-13 Health Practice Manager 2, Adc Lab [facility] 1.2.840.114 [id number] Univers 15:15:00 15:30:00 Visit Jarad Ruiz 350.1.13.1 0 ity of [place] 4.2.7.2.[place] [phone] Vt dical NAL 353 [facility] 2021-11-13 2021-11-13 Outpatient [facility] [id number] Univers 13:30:00 15:02:36 JARAD [facility] 2021-11-13 2021-11-13 [facility] 1.2.840.114 [id number] Univers 13:30:00 15:02:36 Visit Jarad RENEE 350.1.13.10 ity [facility] 4.2.7.2.[place] [phone] Vt dical NAL 201 [facility] 2021-11-13 2021-11-13 Outpatient [facility] [id number] Univers 13:30:00 15:02:36 JARAD [facility] 2021-11-02 2021-11-02 [facility] 1.2.232.956 [id number] 0813 Univers 15:00:00 15:30:00 Visit Yun RENEE 350.1.13.10 i ty of [facility] 4.2.7.2.686 [place] [phone] [facility] 188 [facility] 2021-11-02 2021-11-02 [facility] [id number] Univers 15:00:00 15:00:00 YUN [facility] 2021-11-02 2021-11-02 [facility] [id number] Univers 15:00:00 15:00:00 YUN [facility] 2021-11-02 2021-11-02 [facility] [id number] Univers 10:30:00 10:30:00 YUN [facility] 2021-10-26 2021-10-26 [facility] [id number] Univers 12:30:00 12:30:00 [facility] 2021-10-18 2021-10-18 [facility] 1.2.780.763 [id number] Univers 00:00:00 00:00:00 [facility] 350.1.13.10 i ty of [place] 4.2.7.2.686 Tamir as BRIGETTE?BLEA [phone] Vt martha NAQVI [address] [place] MEDICAL OFFICE [facility] 2021-10-10 2021-10-10 [facility] [id number] Univers 15:30:00 15:30:00 YUN phipps [facility] [place] [facility] 2021-10-04 2021-10-04 Orders Doctor CHAS 1.2.840.114 [id number] Univers 00:00:00 00:00:00 Only Unassigned, ANJU 350.1.13.10 ity of [facility] 4.2.7.2.686 Tamir as [phone] [address] 2021-10-02 2021-10-02 Telephone [facility] 1.2.840.114 [id number] Univers 00:00:00 00:00:00 Jarad RENEE 350.1.13.10 ity [facility] 4.2.[place].2.[place] [id number] Vt dical NAL 201 [facility] 2021-09-18 2021-09-18 Outpatient R [facility] [id number] Univers 15:30:00 16:39:06 JARAD phipps [facility] 2021-09-18 2021-09-18 Office [facility] 1.2.840.114 [id number] Univers 15:30:00 16:39:06 Visit Jarad RENEE 350.1.13.10 ity [facility] 4.2.7.2.[place] [phone] Vt dichayes NAL 201 [facility] 2021-09-14 2021-09-14 [facility] [id number] Univers 11:00:00 11:00:00 YUN phipps [facility] 2021-09-04 2021-09-04 Outpatient Je [facility] [id number] Univers 13:30:00 13:30:00 JARAD susy [facility] 2021-08-22 2021-08-22 Telephone [facility] 1.2.840.114 [id number] Univers 00:00:00 00:00:00 Yun RENEE 350.1.13.10 i ty of [facility] 4.2.7.2.686 [place] [phone] Vt martha RUIZ 188 [facility] 2021-08-21 2021-08-21 Orders Doctor CHAS 1.2.840.114 [id number] Univers 00:00:00 00:00:00 Only Unassigned, ANJU 350.1.13.10 ity of [place] [facility] 4.2.7.2.686 Tamir as [phone] [address] 2021-08-18 2021-08-18 Telephone Jorge, [facility] 1.2.774.430 [id number] 0301 Univers 00:00:00 00:00:00 Gabriella [facility] 350.1.13.10 i ty of [place] 4.2.7.2.686 Tamir as BRIGETTE?BLEA [phone] Vt benitohayes NAQVI [address] [place] MEDICAL OFFICE [facility] 2021-08-17 2021-08-17 Outpatient Je [facility]IVER [facility] [id number] Univers 10:30:00 11:15:44 YUN phipps [facility] 2021-08-17 2021-08-17 Office [facility] 1.2.366.783 [id number] Univers 10:30:00 11:15:44 Visit Yun EVON 350.1.13.10 i ty of [facility] 4.2.7.2.686 [place] [phone] Vt martha RUIZ 188 [facility] 2021-08-17 2021-08-17 Outpatient Je OLIVER [facility] [id number] Univers 10:30:00 11:15:44 YUN phipps [facility] 2021-08-15 2021-08-15 Outpatient Je OLIVER [facility] [id number] Univers 14:45:00 14:45:00 YUN phipps [facility] 2021-08-15 2021-08-15 Outpatient Je OLIVER [facility] [id number] Univers 14:45:00 14:45:00 YUN phipps [facility] 2021-08-15 2021-08-15 Outpatient Je OLIVER [facility] [id number] Univers 14:45:00 14:45:00 YUN susy [facility] 2021-08-10 2021-08-10 Hospital Aaron Oliverel [facility] 1.2.840. 114 [id number] Univers 10:00:00 23:59:00 Encounter Mirna Padmaja A [facility] 350.1.13.10 ity of [place] 4.2.7.2.686 [place] [phone] [facility] [address] ([facility]) 2021-08-10 2021-08-10 Out[facility] [id number] Univers 08:00:00 23:59:00 [facility] 2021-08-10 2021-08-10 [facility] [id number] Univers 08:00:00 23:59:00 [facility] 2021-08-09 2021-08-09 Emergency X [facility] ERT [id number] Univers 13:33:00 18:09:00 PHU phipps [facility] 2021-08-09 2021-08-09 Emergency [facility] 1.2.655.058 [id number] Univers 13:33:00 18:09:00 Phutulio FLEMINGSERVANDO 350.1.13.10 i ty of [place] 4.2.7.2.686 [place] [phone] [facility] [address] 2021-08-09 2021-08-09 Patient Sonido CHAS 1.2.045.704 [id number] Univers 00:00:00 00:00:00 Outreach Yun SORTOY 350.1.13.10 i ty of [facility] 4.2.7.2.686 Tamir as [phone] [facility] [address] 2021-08-08 2021-08-08 Telephone Sonido [facility] 1.2.840.114 [id number] Univers 00:00:00 00:00:00 Yun EVON 350.1.13.10 i ty of [place] 4.2.7.2.686 [place] [facility] [phone] [facility] [address] BUILDING 2021-08-07 2021-08-07 Outpatient R JOSEPH [facility] [id number] Univers 13:00:00 13:00:00 JARAD phipps [facility] 2021-08-07 2021-08-07 Outpatient R JOSEPH [facility] [id number] Univers 13:00:00 13:00:00 JARAD phipps [facility] 2021-07-25 2021-07-25 Telephone [facility] 1.2.840.114 [id number] Univers 00:00:00 00:00:00 Yun [place] 350.1.13.10 i ty [place].2.[place] [id number] [address] 2021-07-21 2021-07-21 [facility] 1.2.840.114 [id number] Univers 15:30:00 16:28:05 Visit Gabriella A HEALTH 350.1.13.10 i ty of [facility] 4.2.7.2.686 Tamir as BRIGETTE?BLEA [phone] [address] OFFICE [facility] 2021-07-21 2021-07-21 [facility] [id number] Univers 15:30:00 16:28:05 GABRIELLA phipps [facility] 2021-07-21 2021-07-21 [facility] [id number] Univers 15:30:00 15:30:00 GABRIELLA phipps [facility] 2021-07-21 2021-07-21 Telephone [facility] 1.2.840.114 [id number] Univers 00:00:00 00:00:00 Yun EV[place] 350.1.13.10 i ty of [place].2.[place] [id number] [address] 2021-07-20 2021-07-20 Office [facility] 1.2.840.114 [id number] Univers 13:30:00 14:00:00 Visit Gabriella A HEALTH 350.1.13.10 i ty of [place] 4.2.7.2.686 Tamir as BRIGETTE?BLEA [id number] Vt martha MELENDEZEY [address] [place] MEDICAL OFFICE BUILDING 2021-07-20 2021-07-20 Outpatient R JORGE [facility] [id number] Univers 13:30:00 13:30:00 GABRIELLA phipps [facility] 2021-07-20 2021-07-20 [facility] [id number] Univers 13:30:00 13:30:00 GABRIELLA phipps [facility] 2021-07-18 2021-07-18 Office [facility] 1.2.054.523 [id number] Univers 16:30:00 16:54:16 Visit Yun EVON 350.1.13.10 i ty of [place] 4.2.7.2.686 [place] [phone] Vt [facility] 188 [facility] 2021-07-18 2021-07-18 [facility] [id number] Univers 16:30:00 16:54:16 YUN phipps [facility] 2021-07-18 2021-07-18 [facility] [id number] Univers 16:30:00 16:54:16 YUN [facility] 2021-07-18 2021-07-18 [facility] [id number] Univers 16:30:00 16:30:00 YUN susy [facility] 2021-07-18 2021-07-18 Orders Doctor GARIBAY 1.2.840.114 [id number] Univers 00:00:00 00:00:00 Only Unassigned, ANJU 350.1.13.10 ity of [place] [facility] 4.2.7.2.686 Tamir as [id number] [facility] [address] 2021-07-07 2021-07-07 Transition OSVALDO [facility] 1.2.840.114 [id number] Univers 00:00:00 00:00:00 of Care Sarita FRANKLIN 350.1.13.10 i ty of [place] 4[place]2.7.2.686 [place] [id number] [facility] [address] 2021-07-03 2021-07-06 Inpatient X TATE, [facility] ERIN [id number] Univers 00:36:00 16:08:00 CORTEZ phipps [facility] 2021-07-03 2021-07-06 [facility] Carlita Thomas [facility] 1.2.840.1 14 [id number] Univers 00:36:00 16:08:00 Encounter Cortez Blanco EV[place] 350.1.13.10 ity of [place] 4.2.7.2.686 [place] [phone] [facility] [address] [place] 2021-07-03 2021-07-06 Inpatient X TATE, [facility] ERIN [id number] Univers 00:36:00 16:08:00 CORTEZ phipps [facility] 2021-06-07 2021-06-07 [facility] [id number] Univers 16:00:00 16:00:00 ALICIA moise [facility] 2021-05-25 2021-05-25 Telephone [facility] 1..317.357 [id number] Univers 00:00:00 00:00:00 Alicia RENEE 350.1.13.10 ity [facility] 4.2.7.2.686 [place] [facility] [phone] Vt dical NAL [address] [place] [address] 2021-05-22 2021-05-22 Outpatient [facility] [id number] Univers 14:30:00 14:30:00 ALICIA moise [facility] 2021-04-26 2021-04-26 Office [facility] 1..840.114 [id number] Univers 11:31:12 12:29:11 Visit Alicia Renee 350.1.13.10 ity of [place].7.2.[place] [phone] Vt dical nal [address] [place] [address] 2021-04-26 2021-04-26 Out[facility] [id number] Univers 11:30:00 11:30:00 ALICIA phipps [facility] 2021-04-26 2021-04-26 Orders Doctor GARIBAY 1.2.840.114 [id number] Univers 00:00:00 00:00:00 Only Unassigned, ANJU 350.1.13.10 ity of [facility] 4.2.7.2.686 Tamir as [id number] [address] 2021-04-20 2021-04-20 Outpatient [facility] [id number] [facility] 00:00:00 23:59:00 Sissy russo of Medicin e 2021-04-17 2021-04-20 Inpatient ER MARIEL [facility] [id number] SLE 12:53:00 17:18:00 JACLYN 2021-04-17 2021-04-20 Hospital ER García Soriano [facility] [id number] [facility] 12:53:00 17:18:00 Encounter Indu Gambino [facility] 2021-04-20 2021-04-[address] [facility] [id number] 00:00:00 00:00:00 Only [facility] 2021-04-17 2021-04-17 Travel [facility] [id number] [facility] 00:00:00 00:00:00 [facility] 2021-04-03 2021-04-03 Outpatient R MIRNA, [facility] [id number] Univers 16:00:00 16:00:00 ALICIA moise [facility] 2021-03-22 2021-03-22 Outpatient R MIRNA, [facility] [id number] Univers 15:30:00 15:30:00 ALICIA moise [facility] 2020-09-16 2020-09-16 Telephone [facility] 1.2.951.022 [id number] Univers 00:00:00 00:00:00 Alicia Renee 350.1.13.10 ity [facility] 4.2.7.2.686 Purnima s [place] [phone] [address] 2020-09-16 2020-09-16 Telephone Gramm, [facility] 1.2.044.443 [id number] Univers 00:00:00 00:00:00 Alicia A Perley 350.1.13.10 ity of [place] [phone] Vt dical nal 204 [facility] 2020-09-12 2020-09-12 Lesley Marie [facility] 1.2.195.093 [id number] Univers 00:00:00 00:00:00 Alicia [place] 350.1.13.10 ity of [place].2.[place] [phone] Vt dical nal 204 [facility] 2020-09-08 2020-09-08 Health Practice Manager Jeanette, Adc Lab Main [facility] 1.2.8 40.114 [id number] Univers 13:20:27 13:35:27 Visit Mirna Aliciasukhjinder [place] 350.1.13.10 ity of [place] 4.2.7.2.[place] [phone] Vt dical [facility] 353 [facility] 2020-09-08 2020-09-08 Outpatient R MIRNA [facility] [id number] Univers 13:15:00 13:15:00 ALICIA ity of [facility] 2020-09-08 2020-09-08 Case [facility] 1.2.840.114 [id number] Univers 00:00:00 00:00:00 Management Alicia [place] 350.1.13.10 ity of [place].2.[place] [phone] Vt dical nal 204 [facility] 2020-07-26 2020-07-26 Outpatient Je [facility] [id number] Univers 13:00:00 13:00:00 BILAL ity of [facility] 2020-07-14 2020-07-14 Office [facility] 1.2.840.114 [id number] Univers 14:29:58 15:43:06 Visit [facility] 350.1.13.10 it y of [place] 4[place]2.7.2.686 [place] [phone] [facility] Primary & [address] [facility] 2020-07-14 2020-07-14 Outpatient Je DE LA TORRE [facility] [id number] Univers 15:00:00 15:00:00 BILAL ity [facility] 2020-07-14 2020-07-14 Orders Doctor CHAS 1.2.840.114 [id number] Univers 00:00:00 00:00:00 Only Unassigned, ANJU 350.1.13.10 ity of [place] [facility] 4.2.7.2.686 Tamir as [id number] [address] 2019-10-07 2019-10-07 Outpatient [facility] [id number] Univers 13:00:00 13:00:00 BILAL ity [facility] 2019-10-02 2019-10-02 Telephone [facility] 1.2.256.624 [id number] Univers 00:00:00 00:00:00 Alicia Renee 350.1.13.10 ity of [place].2.[place] [phone] [address] 2019-08-06 2019-08-06 Orders Doctor CHAS 1.2.840.114 [id number] Univers 00:00:00 00:00:00 Only Unassigned, ANJU 350.1.13.10 ity of [place] [facility] 4.2.7.2.686 Tamir as [id number] [address] 2019-08-05 2019-08-05 Office [facility] 1.2.840.114 [id number] [employer] 10:18:25 10:52:03 Visit Alicia Renee 350.1.13.10 [place] [phone] [address] 2019-03-05 2019-03-05 Telephone [facility] [id number] [employer] 00:00:00 00:00:00 Alicia Renee 350.1.13.10 [place] [phone] [address] 2019-03-03 2019-03-03 Health Practice Manager 1, Adc Lab [facility] 1.2.840.114 [id number] Univers 12:49:09 13:04:09 Visit Alicia Marie Rose Renee 350.1.13.10 [place] [phone] [facility] [address] 2019-03-03 2019-03-03 Orders Doctor CHAS 1.2.840.114 [id number] Univers 00:00:00 00:00:00 Only Unassigned, ANJU 350.1.13.10 ity of [facility] 4.2.7.2.686 Tamir as [phone] [facility] [address] 2019-02-11 2019-02-11 Telephone [facility] [id number] [employer] 00:00:00 00:00:00 Alicia Rose Evon 350.1.13.10 [place] [phone] [address] 2019-02-06 2019-02-06 [facility] 1.2.840.114 [id number] Univers 09:35:16 10:21:45 Visit Alicia Rose Evon 350.1.13.10 [place] [phone] [address] 2019-02-06 2019-02-06 Orders Doctor CHAS 1.2.840.114 [id number] [employer] 00:00:00 00:00:00 Only Unassigned, ANJU 350.1.13.10 ity of [facility] 4.2.7.2.686 Tamir as [phone] [address] Results Test Description Test Time Test Comments Results Result Comments Source MAGNESIUM 2022-08-21 06:18:45 Test Item Value Reference Range Interpretation Comme nts MAGNESIUM (BEAKER) (test code = 627) 2.3 mg/dL 1.6-2.6 Regulator Tester ID - [id number] 06:18:45 Test Item Value Reference Range Interpretation Comments PHOSPHORUS (BEAKER) (test code = 3.3 mg/dL 2.3-4.7 604) Regulator Tester ID - MARCOBASIC METABOLIC [id number] 06:18:44 Test Item Value Reference Range Interpretation Comments SODIUM (BEAKER) 132 meq/L 136-145 L (test code = 381) POTASSIUM 4.5 meq/L 3.5-5.1 (BEAKER) (test code = 379) CHLORIDE (BEAKER) 104 meq/L 98-107 (test code = 382) CO2 (BEAKER) 21 meq/L 22-29 L (test code = 355) BLOOD UREA 11 mg/dL 7-21 NITROGEN (BEAKER) (test code = 354) CREATININE 0.62 mg/dL 0.57-1.25 (BEAKER) (test code = 358) GLUCOSE RANDOM 117 mg/dL 70-105 H (BEAKER) (test code = 652) CALCIUM (BEAKER) 8.4 mg/dL 8.4-10.2 (test code = 697) EGFR [...] not appl icable for dialysis patien ts Regulator Tester ID - MARCOCBC W/PLT COUNT & AUTO [id number] 05:40:58 Test Item Value Reference Range Interpretation Comments WHITE BLOOD CELL COUNT (BEAKER) 8.7 K/ L 3.5-10.5 (test code = 775) RED BLOOD CELL COUNT (BEAKER) 3.31 M/ L 4.63-6.08 L (test code = 761) HEMOGLOBIN (BEAKER) (test code = 8.7 GM/DL 13.7-17.5 L 410) HEMATOCRIT (BEAKER) (test code = 28.6 % 40.1-51.0 L 411) MEAN CORPUSCULAR VOLUME (BEAKER) 86 fL 79-92 (test code = 753) MEAN CORPUSCULAR HEMOGLOBIN 26.3 pg 25.7-32.2 (BEAKER) (test code = 751) MEAN CORPUSCULAR HEMOGLOBIN CONC 30.4 GM/DL 32.3-36.5 L (BEAKER) (test code = 752) RED CELL DISTRIBUTION WIDTH 20.4 % 11.6-14.4 H (BEAKER) (test code = 412) PLATELET COUNT (BEAKER) (test 422 K/CU MM 150-450 code = 756) MEAN PLATELET VOLUME (BEAKER) 8.7 fL 9.4-12.4 L (test code = 754) NUCLEATED RED BLOOD CELLS 0 /100 WBC 0-0 (BEAKER) (test code = 413) NEUTROPHILS RELATIVE PERCENT 93 % (BEAKER) (test code = 429) LYMPHOCYTES RELATIVE PERCENT 5 % (BEAKER) (test code = 430) MONOCYTES RELATIVE PERCENT 1 % (BEAKER) (test code = 431) EOSINOPHILS RELATIVE PERCENT 0 % (BEAKER) (test code = 432) BASOPHILS RELATIVE PERCENT 0 % (BEAKER) (test code = 437) NEUTROPHILS ABSOLUTE COUNT 8.07 K/ L 1.78-5.38 H (BEAKER) (test code = 670) LYMPHOCYTES ABSOLUTE COUNT 0.47 K/ L 1.32-3.57 L (BEAKER) (test code = 414) MONOCYTES ABSOLUTE COUNT (BEAKER) 0.06 K/ L 0.30-0.82 L (test code = 415) EOSINOPHILS ABSOLUTE COUNT 0.00 K/ L 0.04-0.54 L (BEAKER) (test code = 416) BASOPHILS ABSOLUTE COUNT (BEAKER) 0.01 K/ L 0.01-0.08 (test code = 417) IMMATURE GRANULOCYTES-RELATIVE 0.60 % 0.00-1.00 PERCENT (BEAKER) (test code = 2801) ANAEROBIC [id number] 10:02:12 Test Item Value Reference Range Interpretation Comments CULTURE (BEAKER) (test No anaerobes isolated code = 1095) [id number] 06:14:00 Test Item Value Reference Range Interpretation Comments PHOSPHORUS (BEAKER) (test code = 2.9 mg/dL 2.3-4.7 604) Regulator Tester ID - PIAYA LHEPATIC FUNCTION [id number] 06:14:00 Test Item Value Reference Range Interpretation Comments TOTAL PROTEIN (BEAKER) (test code = 7.2 gm/dL 6.0-8.3 770) ALBUMIN (BEAKER) (test code = 1145) 3.3 g/dL 3.5-5.0 L BILIRUBIN TOTAL (BEAKER) (test code 0.2 mg/dL 0.2-1.2 = 377) BILIRUBIN DIRECT (BEAKER) (test 0.1 mg/dL 0.1-0.5 code = 706) ALKALINE PHOSPHATASE (BEAKER) (test 89 U/L 40-150 code = 346) AST (SGOT) (BEAKER) (test code = 20 U/L 5-34 353) ALT (SGPT) (BEAKER) (test code = 19 U/L 6-55 347) Regulator Tester ID - PB [id number] 06:13:59 Test Item Value Reference Range Interpretation Comments MAGNESIUM (BEAKER) (test code = 2.1 mg/dL 1.6-2.6 627) Regulator Tester ID - PINOE LBASIC METABOLIC [id number] 06:13:59 Test Item Value Reference Range Interpretation Comments SODIUM (BEAKER) 138 meq/L 136-145 (test code = 381) POTASSIUM 4.3 meq/L 3.5-5.1 (BEAKER) (test code = 379) CHLORIDE (BEAKER) 109 meq/L 98-107 H (test code = 382) CO2 (BEAKER) 22 meq/L 22-29 (test code = 355) BLOOD UREA 11 mg/dL 7-21 NITROGEN (BEAKER) (test code = 354) CREATININE 0.53 mg/dL 0.57-1.25 L (BEAKER) (test code = 358) GLUCOSE RANDOM 109 mg/dL 70-105 H (BEAKER) (test code = 652) CALCIUM (BEAKER) 8.7 mg/dL 8.4-10.2 (test code = 697) EGFR (BEAKER) 130 Interpretatio n of eGFR (test code = [...] not appl icable for dialysis patien ts Regulator Tester ID - PIAYA LCBC W/PLT COUNT & AUTO [id number] 05:45:13 Test Item Value Reference Range Interpretation Comments WHITE BLOOD CELL COUNT (BEAKER) 8.8 K/ L 3.5-10.5 (test code = 775) RED BLOOD CELL COUNT (BEAKER) 3.54 M/ L 4.63-6.08 L (test code = 761) HEMOGLOBIN (BEAKER) (test code = 9.1 GM/DL 13.7-17.5 L 410) HEMATOCRIT (BEAKER) (test code = 30.8 % 40.1-51.0 L 411) MEAN CORPUSCULAR VOLUME (BEAKER) 87 fL 79-92 (test code = 753) MEAN CORPUSCULAR HEMOGLOBIN 25.7 pg 25.7-32.2 (BEAKER) (test code = 751) MEAN CORPUSCULAR HEMOGLOBIN CONC 29.5 GM/DL 32.3-36.5 L (BEAKER) (test code = 752) RED CELL DISTRIBUTION WIDTH 20.9 % 11.6-14.4 H (BEAKER) (test code = 412) PLATELET COUNT (BEAKER) (test 502 K/CU MM 150-450 H code = 756) [...] (test code = 437) NEUTROPHILS ABSOLUTE COUNT 8.02 K/ L 1.78-5.38 H (BEAKER) (test code = 670) LYMPHOCYTES ABSOLUTE COUNT 0.60 K/ L 1.32-3.57 L (BEAKER) (test code = 414) MONOCYTES ABSOLUTE COUNT (BEAKER) 0.17 K/ L 0.30-0.82 L (test code = 415) EOSINOPHILS ABSOLUTE COUNT 0.00 K/ L 0.04-0.54 L (BEAKER) (test code = 416) BASOPHILS ABSOLUTE COUNT (BEAKER) 0.00 K/ L 0.01-0.08 L (test code = 417) IMMATURE GRANULOCYTES-RELATIVE 0.30 % 0.00-1.00 PERCENT (BEAKER) (test code = 2801) [id number] 05:08:55 Test Item Value Reference Range Interpretation Comments MAGNESIUM (BEAKER) (test code = 1.8 mg/dL 1.6-2.6 627) Regulator Tester ID - PIAYA [id number] 05:08:55 Test Item Value Reference Range Interpretation Comments PHOSPHORUS (BEAKER) (test code = 3.0 mg/dL 2.3-4.7 604) Regulator Tester ID - PIAYA LBASIC METABOLIC [id number] 05:08:54 Test Item Value Reference Range Interpretation Comments SODIUM (BEAKER) 136 meq/L 136-145 (test code = 381) POTASSIUM 4.0 meq/L 3.5-5.1 (BEAKER) (test code = 379) CHLORIDE (BEAKER) 108 meq/L 98-107 H (test code = 382) CO2 (BEAKER) 22 meq/L 22-29 (test code = 355) BLOOD UREA 12 mg/dL 7-21 NITROGEN (BEAKER) (test code = 354) CREATININE 0.51 mg/dL 0.57-1.25 L (BEAKER) (test code = 358) GLUCOSE RANDOM 135 mg/dL 70-105 H (BEAKER) (test code = 652) CALCIUM (BEAKER) 8.6 mg/dL 8.4-10.2 (test code = 697) EGFR (BEAKER) 131 Interpretatio n of eGFR (test code = mL/min/1.73 values Stage De scription 1092) sq m Result G1 Norm al or high >=90 G2 Mildly decreased 60-89 [...] not appl icable for dialysis patien ts Regulator Tester ID - PIAYA LCBC W/PLT COUNT & AUTO [id number] 04:50:29 Test Item Value Reference Range Interpretation Comments WHITE BLOOD CELL COUNT (BEAKER) 11.1 K/ L 3.5-10.5 H (test code = 775) RED BLOOD CELL COUNT (BEAKER) 3.30 M/ L 4.63-6.08 L (test code = 761) HEMOGLOBIN (BEAKER) (test code = 8.8 GM/DL 13.7-17.5 L 410) HEMATOCRIT (BEAKER) (test code = 28.6 % 40.1-51.0 L 411) MEAN CORPUSCULAR VOLUME (BEAKER) 87 fL 79-92 (test code = 753) MEAN CORPUSCULAR HEMOGLOBIN 26.7 pg 25.7-32.2 (BEAKER) (test code = 751) MEAN CORPUSCULAR HEMOGLOBIN CONC 30.8 GM/DL 32.3-36.5 L (BEAKER) (test code = 752) RED CELL DISTRIBUTION WIDTH 21.0 % 11.6-14.4 H (BEAKER) (test code = 412) PLATELET COUNT (BEAKER) (test 463 K/CU MM 150-450 H code = 756) MEAN PLATELET VOLUME (BEAKER) 8.4 fL 9.4-12.4 L (test code = 754) NUCLEATED RED BLOOD CELLS 0 /100 WBC 0-0 (BEAKER) (test code = 413) NEUTROPHILS RELATIVE PERCENT 91 % (BEAKER) (test code = 429) LYMPHOCYTES RELATIVE PERCENT 5 % (BEAKER) (test code = 430) MONOCYTES RELATIVE PERCENT 4 % (BEAKER) (test code = 431) EOSINOPHILS RELATIVE PERCENT 0 % (BEAKER) (test code = 432) BASOPHILS RELATIVE PERCENT 0 % (BEAKER) (test code = 437) NEUTROPHILS ABSOLUTE COUNT 10.14 K/ L 1.78-5.38 H (BEAKER) (test code = 670) LYMPHOCYTES ABSOLUTE COUNT 0.50 K/ L 1.32-3.57 L (BEAKER) (test code = 414) MONOCYTES ABSOLUTE COUNT (BEAKER) 0.40 K/ L 0.30-0.82 (test code = 415) EOSINOPHILS ABSOLUTE COUNT 0.00 K/ L 0.04-0.54 L (BEAKER) (test code = 416) BASOPHILS ABSOLUTE COUNT (BEAKER) 0.01 K/ L 0.01-0.08 (test code = 417) IMMATURE GRANULOCYTES-RELATIVE 0.50 % 0.00-1.00 PERCENT (BEAKER) (test code = 2801) [id number] 05:05:18 Test Item Value Reference Range Interpretation Comments PHOSPHORUS (BEAKER) (test code = 3.1 mg/dL 2.3-4.7 604) Regulator Tester ID - PB LBASIC METABOLIC [id number] 05:05:17 Test Item Value Reference Range Interpretation Comments SODIUM (BEAKER) 141 meq/L 136-145 (test code = 381) POTASSIUM 3.8 meq/L 3.5-5.1 (BEAKER) (test code = 379) CHLORIDE (BEAKER) 109 meq/L 98-107 H (test code = 382) CO2 (BEAKER) 24 meq/L 22-29 (test code = 355) BLOOD UREA 9 mg/dL 7-21 NITROGEN (BEAKER) (test code = 354) CREATININE 0.62 mg/dL 0.57-1.25 (BEAKER) (test code = 358) GLUCOSE RANDOM 129 mg/dL 70-105 H (BEAKER) (test code = [...] not appl icable for dialysis patien ts Regulator Tester ID - PINOE [id number] 05:05:17 Test Item Value Reference Range Interpretation Comments MAGNESIUM (BEAKER) (test code = 2.1 mg/dL 1.6-2.6 627) Regulator Tester ID - PIAYA LCBC W/PLT COUNT & AUTO [id number] 04:46:34 Test Item Value Reference Range Interpretation Comments WHITE BLOOD CELL COUNT (BEAKER) 19.3 K/ L 3.5-10.5 H (test code = 775) RED BLOOD CELL COUNT (BEAKER) 3.62 M/ L 4.63-6.08 L (test code = 761) HEMOGLOBIN (BEAKER) (test code = 9.5 GM/DL 13.7-17.5 L 410) HEMATOCRIT (BEAKER) (test code = 31.3 % 40.1-51.0 L 411) MEAN CORPUSCULAR VOLUME (BEAKER) 87 fL 79-92 (test code = 753) MEAN CORPUSCULAR HEMOGLOBIN 26.2 pg 25.7-32.2 (BEAKER) (test code = 751) MEAN CORPUSCULAR HEMOGLOBIN CONC 30.4 GM/DL 32.3-36.5 L (BEAKER) (test code = 752) RED CELL DISTRIBUTION WIDTH 20.7 % 11.6-14.4 H (BEAKER) (test code = 412) PLATELET COUNT (BEAKER) (test 523 K/CU MM 150-450 H code = 756) MEAN PLATELET VOLUME (BEAKER) 8.2 fL 9.4-12.4 L (test code = 754) NUCLEATED RED BLOOD CELLS 0 /100 WBC 0-0 (BEAKER) (test code = 413) NEUTROPHILS RELATIVE PERCENT 93 % (BEAKER) (test code = 429) LYMPHOCYTES RELATIVE PERCENT 4 % (BEAKER) (test code = 430) MONOCYTES RELATIVE PERCENT 2 % (BEAKER) (test code = 431) EOSINOPHILS RELATIVE PERCENT 0 % (BEAKER) (test code = 432) BASOPHILS RELATIVE PERCENT 0 % (BEAKER) (test code = 437) NEUTROPHILS ABSOLUTE COUNT 17.99 K/ L 1.78-5.38 H (BEAKER) (test code = 670) LYMPHOCYTES ABSOLUTE COUNT 0.73 K/ L 1.32-3.57 L (BEAKER) (test code = 414) MONOCYTES ABSOLUTE COUNT (BEAKER) 0.40 K/ L 0.30-0.82 (test code = 415) EOSINOPHILS ABSOLUTE COUNT 0.00 K/ L 0.04-0.54 L (BEAKER) (test code = 416) BASOPHILS ABSOLUTE COUNT (BEAKER) 0.02 K/ L 0.01-0.08 (test code = 417) IMMATURE GRANULOCYTES-RELATIVE 0.60 % 0.00-1.00 PERCENT (BEAKER) (test code = 2801) TISSUE [id number] 12:06:53Surgical Pathology Report Case: [id number] Authorizing Provider: Bette Johnson MD Collected:08/14/2022 11:03 AM Ordering Location: [address] Received: 08/14/2022 11:54 AM SERVICE Pathologist: Eliot Ho MD Specimen: Ischium, Left, BX ISCHIUM, LEFT, BIOPSY: - MINUTE FRAGMENT OF BONE WITH REPARATIVE CHANGES (see comment) Signing Pathologist Direct Phone Line: [phone] signed by Eliot Ho MD on 08/17/2022 at 12:06 PMNo significant acute inflammation is appreciated. No obvious malignancy is seen. Please correlate with microbiology cultures. INTRADEPARTMENTAL CONSULT: The case has been reviewed by Dr. Jayshree Willoughby MD who agrees with the above interpretation. [id number] year old male with concerns for osteomyelitis presenting to IR for left ischial bone biopsy for infectious work up.A. Ischium, Left.Received in formalin labeled with the patient's name, medical record number and "ischium, left" is a yellow-white bone core measuring 0.5 cm in length and 0.2cm in diameter that is entirely submitted in A1, following decalcification.JUSTICE Perry, JOLIE ([facility])cmMicroscopic assessment substantiates the above diagnosis. [facility], Department of Pathology, [address] [place] [address], [facility], [facility], [address] [place] [address], [facility], Department of [facility], [address] [place] [address], [id number] 2022-08-17 07:40:22 Test Item Value Reference Range Interpretation Comments PHOSPHORUS (BEAKER) (test code = 3.3 mg/dL 2.3-4.7 604) Regulator Tester ID - CHUCKOBASIC METABOLIC [id number] 07:40:21 Test Item Value Reference Range Interpretation Comments SODIUM (BEAKER) 139 meq/L 136-145 (test code = 381) POTASSIUM 4.5 meq/L 3.5-5.1 (BEAKER) (test code = 379) CHLORIDE (BEAKER) 107 meq/L 98-107 (test code = 382) CO2 (BEAKER) 27 meq/L 22-29 (test code = 355) BLOOD UREA 6 mg/dL 7-21 L NITROGEN (BEAKER) (test code = 354) CREATININE 0.62 mg/dL 0.57-1.25 (BEAKER) (test code = 358) GLUCOSE RANDOM 141 mg/dL 70-105 H (BEAKER) (test code = 652) CALCIUM (BEAKER) 10.0 mg/dL 8.4-10.2 (test code = 697) EGFR [...] not appl icable for dialysis patien ts Regulator Tester ID - [id number] 07:40:21 Test Item Value Reference Range Interpretation Comments MAGNESIUM (BEAKER) (test code = 2.5 mg/dL 1.6-2.6 627) Regulator Tester ID - CHUCKOCBC W/PLT COUNT & AUTO [id number] 07:22:59 Test Item Value Reference Range Interpretation Comments WHITE BLOOD CELL COUNT (BEAKER) 11.9 K/ L 3.5-10.5 H (test code = 775) RED BLOOD CELL COUNT (BEAKER) 4.04 M/ L 4.63-6.08 L (test code = 761) HEMOGLOBIN (BEAKER) (test code = 10.6 GM/DL 13.7-17.5 L 410) HEMATOCRIT (BEAKER) (test code = 35.1 % 40.1-51.0 L 411) MEAN CORPUSCULAR VOLUME (BEAKER) 87 fL 79-92 (test code = 753) MEAN CORPUSCULAR HEMOGLOBIN 26.2 pg 25.7-32.2 (BEAKER) (test code = 751) MEAN CORPUSCULAR HEMOGLOBIN CONC 30.2 GM/DL 32.3-36.5 L (BEAKER) (test code = 752) RED CELL DISTRIBUTION WIDTH 20.7 % 11.6-14.4 H (BEAKER) (test code = 412) PLATELET COUNT (BEAKER) (test 583 K/CU MM 150-450 H code = 756) MEAN PLATELET VOLUME (BEAKER) 8.2 fL 9.4-12.4 L (test code = 754) NUCLEATED RED BLOOD CELLS 0 /100 WBC 0-0 (BEAKER) (test code = 413) NEUTROPHILS RELATIVE PERCENT 94 % (BEAKER) (test code = 429) LYMPHOCYTES RELATIVE PERCENT 5 % (BEAKER) (test code = 430) MONOCYTES RELATIVE PERCENT 1 % (BEAKER) (test code = 431) EOSINOPHILS RELATIVE PERCENT 0 % (BEAKER) (test code = 432) BASOPHILS RELATIVE PERCENT 0 % (BEAKER) (test code = 437) NEUTROPHILS ABSOLUTE COUNT 11.11 K/ L 1.78-5.38 H (BEAKER) (test code = 670) LYMPHOCYTES ABSOLUTE COUNT 0.56 K/ L 1.32-3.57 L (BEAKER) (test code = 414) MONOCYTES ABSOLUTE COUNT (BEAKER) 0.11 K/ L 0.30-0.82 L (test code = 415) EOSINOPHILS ABSOLUTE COUNT 0.01 K/ L 0.04-0.54 L (BEAKER) (test code = 416) BASOPHILS ABSOLUTE COUNT (BEAKER) 0.01 K/ L 0.01-0.08 (test code = 417) IMMATURE GRANULOCYTES-RELATIVE 0.50 % 0.00-1.00 PERCENT (BEAKER) (test code = 2801) LACTATE DEHYDROGENASE (LDH)2022-08-16 18:42:41 Test Item Value Reference Range Interpretation Comments LACTATE DEHYDROGENASE 399 U/L 125-220 H Specim en slightly (BEAKER) (test code = hemoly zed 635) Regulator Tester ID - ADMINURIC [id number] 18:42:26 Test Item Value Reference Range Interpretation Comments URIC ACID (BEAKER) 3.9 mg/dL 2.6-7.2 Specimen slightly (test code = 773) hemolyzed Regulator Tester ID - ADMINALPHA FETOPROTEIN (AFP), TUMOR [id number] 18:06:59 Test Item Value Reference Range Interpretation Comments ALPHA-FETOPROTEIN (BEAKER) (test 5.8 ng/mL <10.0 code = 1094) Regulator Tester ID - BSSURGICALLY OBTAINED CULTURE + GRAM [id number] 16:40:56 Test Item Value Reference Range Interpretation Comments CULTURE (BEAKER) (test code No growth = 1095) GRAM STAIN RESULT (BEAKER) No WBCs (test code = 1123) GRAM STAIN RESULT (BEAKER) No organisms seen (test code = 62940) HEPATIC FUNCTION [id number] 09:52:09 Test Item Value Reference Range Interpretation Comments TOTAL PROTEIN (BEAKER) (test code = 8.1 gm/dL 6.0-8.3 770) ALBUMIN (BEAKER) (test code = 1145) 3.4 g/dL 3.5-5.0 L BILIRUBIN TOTAL (BEAKER) (test code 0.2 mg/dL 0.2-1.2 = 377) BILIRUBIN DIRECT (BEAKER) (test 0.1 mg/dL 0.1-0.5 code = 706) ALKALINE PHOSPHATASE (BEAKER) (test 118 U/L 40-150 code = 346) AST (SGOT) (BEAKER) (test code = 15 U/L 5-34 353) ALT (SGPT) (BEAKER) (test code = 10 U/L 6-55 347) Regulator Tester ID - ADMINSARS-CoV2/RT-PCR (Asymptomatic ONLY)2022-08-16 08:43:55 Test Item Value Reference Interpretation Comments Range SARS-COV2/RT-PCR Negative Negative The SARS-Co V-2 (test code = target nucleic 51498-5) acids are not detected in thi s [...] revoked sooner. Fact Sheet for Healthcare Providers: https://www.[employer]/Documents/Xp ert%20Xpress%20SAR S%20CoV-2/Fact%20S heets/302-3802%20S ARS-COV-2%20HEALTH CARE%20PROVIDERS%2 0FACT%20SHEET.pdf Fact Sheet for Healthcare Patients: https://www.[employer]/Documents/Xp ert%20Xpress%20SAR S%20CoV-2/Fact%20S heets/302-3801%20S ARS-COV-2%20PATIEN T%20FACT%20SHEET.p df Lab Interpretation Normal (test code = 01901-7) [facility])2022-08-16 08:43:55 Test Item Value Reference Range Interpretation Comments SARS-COV2/RT-PCR Negative Negative The SARS-Co V-2 target (test code = nucleic acids a re not 7777741) detected in thi s specimen. Negative result [...] revoked sooner. Fact Sheet for Healthcare Providers: https://www.AMENDIA m/Documents/Xpert%20Xpress%20SARS%20CoV-2/Fact%20Sheets/3023802%93HQJG-QKV-9%20 HEALTHCARE%20PROVIDERS%20FACT%20SHEET.pdf Fact Sheet for Healthcare Patients: https://www.[employer]/Documents/Xpert%20Xp ress%20SARS%20CoV-2/Fact%20Sheets/3023801%51YRAU-ORS-2%20PATIENT%20FACT%20SHEET .pdfBLOOD [id number] 07:00:18 Test Item Value Reference Range Interpretation Comments CULTURE (BEAKER) (test No growth in 5 days code = 1095) BLOOD [id number] 07:00:18 Test Item Value Reference Range Interpretation Comments CULTURE (BEAKER) (test No growth in 5 days code = 1095) [id number] 04:49:24 Test Item Value Reference Range Interpretation Comments MAGNESIUM (BEAKER) (test code = 1.9 mg/dL 1.6-2.6 627) Regulator Tester ID - [id number] 04:49:24 Test Item Value Reference Range Interpretation Comments PHOSPHORUS (BEAKER) (test code = 4.0 mg/dL 2.3-4.7 604) Regulator Tester ID - MARCOBASIC METABOLIC [id number] 04:49:23 Test Item Value Reference Range Interpretation Comments SODIUM (BEAKER) 137 meq/L 136-145 (test code = 381) POTASSIUM 3.9 meq/L [...] (BEAKER) (test code = 652) CALCIUM (BEAKER) 9.4 mg/dL 8.4-10.2 (test code = 697) EGFR [...] not appl icable for dialysis patien ts Regulator Tester ID - MARCOCBC W/PLT COUNT & AUTO [id number] 04:21:06 Test Item Value Reference Range Interpretation Comments WHITE BLOOD CELL COUNT (BEAKER) 12.2 K/ L 3.5-10.5 H (test code = 775) RED BLOOD CELL COUNT (BEAKER) 3.98 M/ L 4.63-6.08 L (test code = 761) HEMOGLOBIN (BEAKER) (test code = 10.1 GM/DL 13.7-17.5 L 410) HEMATOCRIT (BEAKER) (test code = 33.3 % 40.1-51.0 L 411) MEAN CORPUSCULAR VOLUME (BEAKER) 84 fL 79-92 (test code = 753) MEAN CORPUSCULAR HEMOGLOBIN 25.4 pg 25.7-32.2 L (BEAKER) (test code = 751) MEAN CORPUSCULAR HEMOGLOBIN CONC 30.3 GM/DL 32.3-36.5 L (BEAKER) (test code = 752) RED CELL DISTRIBUTION WIDTH 20.6 % 11.6-14.4 H (BEAKER) (test code = 412) PLATELET COUNT (BEAKER) (test 592 K/CU MM 150-450 H code = 756) MEAN PLATELET VOLUME (BEAKER) 8.2 fL 9.4-12.4 L (test code = 754) NUCLEATED RED BLOOD CELLS 0 /100 WBC 0-0 (BEAKER) (test code = 413) NEUTROPHILS RELATIVE PERCENT 76 % (BEAKER) (test code = 429) LYMPHOCYTES RELATIVE PERCENT 12 % (BEAKER) (test code = 430) MONOCYTES RELATIVE PERCENT 8 % (BEAKER) (test code = 431) EOSINOPHILS RELATIVE PERCENT 3 % (BEAKER) (test code = 432) BASOPHILS RELATIVE PERCENT 0 % (BEAKER) (test code = 437) NEUTROPHILS ABSOLUTE COUNT 9.23 K/ L 1.78-5.38 H (BEAKER) (test code = 670) LYMPHOCYTES ABSOLUTE COUNT 1.51 K/ L 1.32-3.57 (BEAKER) (test code = 414) MONOCYTES ABSOLUTE COUNT (BEAKER) 0.91 K/ L 0.30-0.82 H (test code = 415) EOSINOPHILS ABSOLUTE COUNT 0.41 K/ L 0.04-0.54 (BEAKER) (test code = 416) BASOPHILS ABSOLUTE COUNT (BEAKER) 0.03 K/ L 0.01-0.08 (test code = 417) IMMATURE GRANULOCYTES-RELATIVE 0.50 % 0.00-1.00 PERCENT (BEAKER) (test code = 2801) [id number] 06:03:04 Test Item Value Reference Range Interpretation Comments PHOSPHORUS (BEAKER) (test code = 4.1 mg/dL 2.3-4.7 604) Regulator Tester ID - YARED GBASIC METABOLIC [id number] 06:03:03 Test Item Value Reference Range Interpretation Comments SODIUM (BEAKER) 139 meq/L 136-145 (test code = 381) POTASSIUM 3.7 meq/L 3.5-5.1 (BEAKER) (test code = 379) CHLORIDE (BEAKER) 107 meq/L 98-107 (test code = 382) CO2 [...] not appl icable for dialysis patien ts Regulator Tester ID - YARED [id number] 06:03:03 Test Item Value Reference Range Interpretation Comments MAGNESIUM (BEAKER) (test code = 1.9 mg/dL 1.6-2.6 627) Regulator Tester ID - YARED GCBC W/PLT COUNT & AUTO [id number] 05:43:44 Test Item Value Reference Range Interpretation Comments WHITE BLOOD CELL COUNT (BEAKER) 9.3 K/ L 3.5-10.5 (test code = 775) RED BLOOD CELL COUNT (BEAKER) 3.60 M/ L 4.63-6.08 L (test code = 761) HEMOGLOBIN (BEAKER) (test code = 9.4 GM/DL 13.7-17.5 L 410) HEMATOCRIT (BEAKER) (test code = 30.3 % 40.1-51.0 L 411) MEAN CORPUSCULAR VOLUME (BEAKER) 84 fL 79-92 (test code = 753) MEAN CORPUSCULAR HEMOGLOBIN 26.1 pg 25.7-32.2 (BEAKER) (test code = 751) MEAN CORPUSCULAR HEMOGLOBIN CONC 31.0 GM/DL 32.3-36.5 L (BEAKER) (test code = 752) RED CELL DISTRIBUTION WIDTH 20.1 % 11.6-14.4 H (BEAKER) (test code = 412) PLATELET COUNT (BEAKER) (test 596 K/CU MM 150-450 H code = 756) [...] (test code = 431) EOSINOPHILS RELATIVE PERCENT 4 % (BEAKER) (test code = 432) BASOPHILS RELATIVE PERCENT 0 % (BEAKER) (test code = 437) NEUTROPHILS ABSOLUTE COUNT 6.49 K/ L 1.78-5.38 H (BEAKER) (test code = 670) LYMPHOCYTES ABSOLUTE COUNT 1.52 K/ L 1.32-3.57 (BEAKER) (test code = 414) MONOCYTES ABSOLUTE COUNT (BEAKER) 0.85 K/ L 0.30-0.82 H (test code = 415) EOSINOPHILS ABSOLUTE COUNT 0.34 K/ L 0.04-0.54 (BEAKER) (test code = 416) BASOPHILS ABSOLUTE COUNT (BEAKER) 0.04 K/ L 0.01-0.08 (test code = 417) IMMATURE GRANULOCYTES-RELATIVE 1.00 % 0.00-1.00 PERCENT (BEAKER) (test code = 2801) CT, BIOPSY, [id number] 13:51:00Please send samples for bacterial cultures (aerobic, anerobic), fungal cultures and AFB cultures. Reason for exam:->bone biopsy - left ischium [facility] : 1985 Sex: MFINAL REPORT CT, BIOPSY, BONE, INTERVENTIONAL CONSULT HISTORY: bone biopsy - leftischium COMPARISON: None MODALITY: CT, CT fluoroscopy APPROACH: LEFT dorsal percutaneous CONSENT: Informed written consent was obtained from the patient. SEDATION: Moderate sedation was administered, including a total of 1 mg of Versed and 20 mcg of fentanyl. Continuous monitoring was performed by the operating physician and radiology nursing throughout the procedure. Procedure time spent during conscious sedation: 30 minutes. LOCAL ANESTHESIA: 10 cc 2% lidocaine local TECHNIQUE: The patient was placed in the prone position in the CT scanner. Focal sclerosis from chronic osteomyelitis identified inthe left ischial bone. A safe window to the sclerotic region of the LEFT ischial bone was localized using CT and CT fluoroscopy. This exam was performed according to our departmental dose optimization program which includes automated exposure control, adjustment of the mA and/or kV according to patient's size and/or use of iterative reconstructive technique. After the usual sterile preparation and application of local anesthesia, using a dorsal percutaneous approach, an On- control Powered 11 gauge 15 cm access - 13 gauge 19 cm biopsy system was advanced into the LEFT ischium using CT guidance. A 2 cm core biopsy sample was obtained. A small portion was placed in formalin for pathology and the restwas placed in a sterile tube for infectious disease workup. DISPOSITION: The patient tolerated the procedure well, without immediate complications. The patient left CT in stable condition. IMPRESSION: Technically successful CT guided bone biopsy of the sclerotic left ischium. Signed: Zachery Pedersen Verified Date/Time: 08/14/2022 13:51:10 Reading Location: [facility] B1 [id number] Ortho Consult Reading Room E lectronically signed by: ZACHERY PEDERSEN MD on 08/14/2022 01:51 PM2D Echo W/Doppler(CW/PW/Color)2022-08-14 10:14:34Ejection FractionSLEH ECHO HEARTLAB MKCKESSON [facility] METABOLIC [id number] 05:41:32 Test Item Value Reference Range Interpretation Comments SODIUM (BEAKER) 138 meq/L 136-145 (test code = 381) POTASSIUM 3.7 meq/L 3.5-5.1 (BEAKER) (test code = 379) CHLORIDE (BEAKER) 105 meq/L 98-107 (test code = 382) CO2 (BEAKER) 24 meq/L 22-29 (test code = 355) BLOOD UREA 5 mg/dL 7-21 L NITROGEN (BEAKER) (test code = 354) CREATININE 0.55 mg/dL 0.57-1.25 L (BEAKER) (test code = 358) GLUCOSE RANDOM 106 mg/dL 70-105 H (BEAKER) (test code = [...] not appl icable for dialysis patien ts Regulator Tester ID - [id number] 05:41:32 Test Item Value Reference Range Interpretation Comments MAGNESIUM (BEAKER) (test code = 1.9 mg/dL 1.6-2.6 627) Regulator Tester ID - [id number] 05:41:32 Test Item Value Reference Range Interpretation Comments PHOSPHORUS (BEAKER) (test code = 4.1 mg/dL 2.3-4.7 604) Regulator Tester ID - MARCOCBC W/PLT COUNT & AUTO [id number] 05:36:41 Test Item Value Reference Range Interpretation Comments WHITE BLOOD CELL COUNT (BEAKER) 9.9 K/ L 3.5-10.5 (test code = 775) RED BLOOD CELL COUNT (BEAKER) 3.65 M/ L 4.63-6.08 L (test code = 761) HEMOGLOBIN (BEAKER) (test code = 9.5 GM/DL 13.7-17.5 L 410) HEMATOCRIT (BEAKER) (test code = 30.6 % 40.1-51.0 L 411) MEAN CORPUSCULAR VOLUME (BEAKER) 84 fL 79-92 (test code = 753) MEAN CORPUSCULAR HEMOGLOBIN 26.0 pg 25.7-32.2 (BEAKER) (test code = 751) MEAN CORPUSCULAR HEMOGLOBIN CONC 31.0 GM/DL 32.3-36.5 L (BEAKER) (test code = 752) RED CELL DISTRIBUTION WIDTH 19.9 % 11.6-14.4 H (BEAKER) (test code = 412) PLATELET COUNT (BEAKER) (test 654 K/CU MM 150-450 H code = 756) [...] (test code = 431) EOSINOPHILS RELATIVE PERCENT 4 % (BEAKER) (test code = 432) BASOPHILS RELATIVE PERCENT 1 % (BEAKER) (test code = 437) NEUTROPHILS ABSOLUTE COUNT 7.11 K/ L 1.78-5.38 H (BEAKER) (test code = 670) LYMPHOCYTES ABSOLUTE COUNT 1.43 K/ L 1.32-3.57 (BEAKER) (test code = 414) MONOCYTES ABSOLUTE COUNT (BEAKER) 0.83 K/ L 0.30-0.82 H (test code = 415) EOSINOPHILS ABSOLUTE COUNT 0.34 K/ L 0.04-0.54 (BEAKER) (test code = 416) BASOPHILS ABSOLUTE COUNT (BEAKER) 0.05 K/ L 0.01-0.08 (test code = 417) IMMATURE GRANULOCYTES-RELATIVE 0.90 % 0.00-1.00 PERCENT (BEAKER) (test code = 2801) PROTHROMBIN [id number] 05:35:49 Test Item Value Reference Range Interpretation Comments PROTIME (BEAKER) (test code = 15.0 seconds 11.9-14.2 H 759) INR (BEAKER) (test code = 370) 1.25 <=5.90 RECOMMENDED COUMADIN/WARFARIN INR THERAPY RANGESSTANDARD DOSE: 2.0 - 3.0 Includes: PROPHYLAXIS for venous thrombosis, systemic embolization; TREATMENT for venous thrombosis and/or pulmonary embolus.HIGH RISK: Target INR is 2.5-3.5 for patients with mechanical heart valves.BLOOD [id number] 11:43:19 Test Item Value Reference Range Interpretation Comments CULTURE (BEAKER) A From Anaero bic Bottle (test code = Only Viridans 1095) Streptococcus GRAM STAIN From anaerobic RESULT (BEAKER) bottle only: gram (test code = positive cocci in 1123) chains The specimen volume collected for this blood culture was below the optimum (10 mL per bottle or 20 mL total). Use of lower volumes may adversely affect recovery and/or detection times of some organisms.BLOOD [id number] 10:06:53 Test Item Value Reference Range Interpretation Comments CULTURE (BEAKER) (test No growth in 5 days code = 1095) BASIC METABOLIC [id number] 05:16:26 Test Item Value Reference Range Interpretation Comments SODIUM (BEAKER) 137 meq/L 136-145 (test code = 381) POTASSIUM 4.0 meq/L 3.5-5.1 (BEAKER) (test code = 379) CHLORIDE (BEAKER) 104 meq/L 98-107 (test code = 382) CO2 (BEAKER) 21 meq/L 22-29 L (test code = 355) BLOOD UREA 5 mg/dL 7-21 L NITROGEN (BEAKER) (test code = 354) CREATININE 0.57 mg/dL 0.57-1.25 (BEAKER) (test code = 358) GLUCOSE RANDOM 100 mg/dL 70-105 (BEAKER) (test code = 652) CALCIUM (BEAKER) 9.4 mg/dL 8.4-10.2 (test code = 697) EGFR [...] not appl icable for dialysis patien ts Regulator Tester ID - PB [id number] 05:16:26 Test Item Value Reference Range Interpretation Comments MAGNESIUM (BEAKER) (test code = 1.9 mg/dL 1.6-2.6 627) Regulator Tester ID - PB [id number] 05:16:26 Test Item Value Reference Range Interpretation Comments PHOSPHORUS (BEAKER) (test code = 4.3 mg/dL 2.3-4.7 604) Regulator Tester ID - PB LCBC W/PLT COUNT & AUTO [id number] 04:42:20 Test Item Value Reference Range Interpretation Comments WHITE BLOOD CELL COUNT (BEAKER) 10.8 K/ L 3.5-10.5 H (test code = 775) RED BLOOD CELL COUNT (BEAKER) 3.72 M/ L 4.63-6.08 L (test code = 761) HEMOGLOBIN (BEAKER) (test code = 9.6 GM/DL 13.7-17.5 L 410) HEMATOCRIT (BEAKER) (test code = 31.8 % 40.1-51.0 L 411) MEAN CORPUSCULAR VOLUME (BEAKER) 86 fL 79-92 (test code = 753) MEAN CORPUSCULAR HEMOGLOBIN 25.8 pg 25.7-32.2 (BEAKER) (test code = 751) MEAN CORPUSCULAR HEMOGLOBIN CONC 30.2 GM/DL 32.3-36.5 L (BEAKER) (test code = 752) RED CELL DISTRIBUTION WIDTH 19.6 % 11.6-14.4 H (BEAKER) (test code = 412) PLATELET COUNT (BEAKER) (test 681 K/CU MM 150-450 H code = 756) [...] (test code = 431) EOSINOPHILS RELATIVE PERCENT 3 % (BEAKER) (test code = 432) BASOPHILS RELATIVE PERCENT 1 % (BEAKER) (test code = 437) NEUTROPHILS ABSOLUTE COUNT 7.58 K/ L 1.78-5.38 H (BEAKER) (test code = 670) LYMPHOCYTES ABSOLUTE COUNT 1.79 K/ L 1.32-3.57 (BEAKER) (test code = 414) MONOCYTES ABSOLUTE COUNT (BEAKER) 0.99 K/ L 0.30-0.82 H (test code = 415) EOSINOPHILS ABSOLUTE COUNT 0.31 K/ L 0.04-0.54 (BEAKER) (test code = 416) BASOPHILS ABSOLUTE COUNT (BEAKER) 0.05 K/ L 0.01-0.08 (test code = 417) IMMATURE GRANULOCYTES-RELATIVE 1.10 % 0.00-1.00 H PERCENT (BEAKER) (test code = 2801) PROTHROMBIN [id number] 04:38:14 Test Item Value Reference Range Interpretation Comments PROTIME (BEAKER) (test code = 15.1 seconds 11.9-14.2 H 759) INR (BEAKER) (test code = 370) 1.22 <=5.90 RECOMMENDED COUMADIN/WARFARIN INR THERAPY RANGESSTANDARD DOSE: 2.0 - 3.0 Includes: PROPHYLAXIS for venous thrombosis, systemic embolization; TREATMENT for venous thrombosis and/or pulmonary embolus.HIGH RISK: Target INR is 2.5-3.5 for patients with mechanical heart valves.BASIC METABOLIC [id number] 06:36:09 Test Item Value Reference Range Interpretation Comments [...] (BEAKER) (test code = 358) GLUCOSE RANDOM 106 mg/dL 70-105 H (BEAKER) (test code = [...] not appl icable for dialysis patien ts Regulator Tester ID Joe AMBRIZ [id number] 06:36:09 Test Item Value Reference Range Interpretation Comments MAGNESIUM (BEAKER) (test code = 1.9 mg/dL 1.6-2.6 627) Regulator Tester ID - PB [id number] 06:36:09 Test Item Value Reference Range Interpretation Comments PHOSPHORUS (BEAKER) (test code = 4.1 mg/dL 2.3-4.7 604) Regulator Tester ID - PB LCBC W/PLT COUNT & AUTO [id number] 05:55:45 Test Item Value Reference Range Interpretation Comments WHITE BLOOD CELL COUNT (BEAKER) 8.9 K/ L 3.5-10.5 (test code = 775) RED BLOOD CELL COUNT (BEAKER) 3.26 M/ L 4.63-6.08 L (test code = 761) HEMOGLOBIN (BEAKER) (test code = 8.4 GM/DL 13.7-17.5 L 410) HEMATOCRIT (BEAKER) (test code = 27.3 % 40.1-51.0 L 411) MEAN CORPUSCULAR VOLUME (BEAKER) 84 fL 79-92 (test code = 753) MEAN CORPUSCULAR HEMOGLOBIN 25.8 pg 25.7-32.2 (BEAKER) (test code = 751) MEAN CORPUSCULAR HEMOGLOBIN CONC 30.8 GM/DL 32.3-36.5 L (BEAKER) (test code = 752) RED CELL DISTRIBUTION WIDTH 18.6 % 11.6-14.4 H (BEAKER) (test code = 412) PLATELET COUNT (BEAKER) (test 642 K/CU MM 150-450 H code = 756) MEAN PLATELET VOLUME (BEAKER) 8.2 fL 9.4-12.4 L (test code = 754) NUCLEATED RED BLOOD CELLS 0 /100 WBC 0-0 (BEAKER) (test code = 413) NEUTROPHILS RELATIVE PERCENT 69 % (BEAKER) (test code = 429) LYMPHOCYTES RELATIVE PERCENT 17 % (BEAKER) (test code = 430) MONOCYTES RELATIVE PERCENT 10 % (BEAKER) (test code = 431) EOSINOPHILS RELATIVE PERCENT 3 % (BEAKER) (test code = 432) BASOPHILS RELATIVE PERCENT 0 % (BEAKER) (test code = 437) NEUTROPHILS ABSOLUTE COUNT 6.15 K/ L 1.78-5.38 H (BEAKER) (test code = 670) LYMPHOCYTES ABSOLUTE COUNT 1.53 K/ L 1.32-3.57 (BEAKER) (test code = 414) MONOCYTES ABSOLUTE COUNT (BEAKER) 0.89 K/ L 0.30-0.82 H (test code = 415) EOSINOPHILS ABSOLUTE COUNT 0.25 K/ L 0.04-0.54 (BEAKER) (test code = 416) BASOPHILS ABSOLUTE COUNT (BEAKER) 0.04 K/ L 0.01-0.08 (test code = 417) IMMATURE GRANULOCYTES-RELATIVE 0.60 % 0.00-1.00 PERCENT (BEAKER) (test code = 2801) [id number] 06:35:12 Test Item Value Reference Range Interpretation Comments MAGNESIUM (BEAKER) 1.8 mg/dL 1.6-2.6 Specimen slightly (test code = 627) hemolyzed Regulator Tester ID - PIAYA [id number] 06:35:12 Test Item Value Reference Range Interpretation Comments PHOSPHORUS (BEAKER) 3.4 mg/dL 2.3-4.7 Specimen slightly (test code = 604) hemolyzed Regulator Tester ID - PIAYA LBASIC METABOLIC [id number] 06:35:12 Test Item Value Reference Range Interpretation Comments SODIUM (BEAKER) 135 meq/L 136-145 L (test code = 381) POTASSIUM 4.0 meq/L 3.5-5.1 Specimen slight ly (BEAKER) (test hemolyzed code = 379) CHLORIDE (BEAKER) 104 meq/L 98-107 (test code = 382) CO2 (BEAKER) 24 meq/L 22-29 (test code = 355) BLOOD UREA 5 mg/dL 7-21 L NITROGEN (BEAKER) (test code = 354) CREATININE 0.54 mg/dL 0.57-1.25 L Specimen slight ly (BEAKER) (test hemolyzed code = 358) GLUCOSE RANDOM 96 mg/dL 70-105 (BEAKER) (test code = 652) [...] not appl icable for dialysis patien ts Regulator Tester ID - PIAYA LCBC W/PLT COUNT & AUTO [id number] 06:23:54 Test Item Value Reference Range Interpretation Comments WHITE BLOOD CELL COUNT (BEAKER) 10.2 K/ L 3.5-10.5 (test code = 775) RED BLOOD CELL COUNT (BEAKER) 3.28 M/ L 4.63-6.08 L (test code = [...] code = 752) RED CELL DISTRIBUTION WIDTH 18.5 % 11.6-14.4 H (BEAKER) (test code = 412) PLATELET COUNT (BEAKER) (test 646 K/CU MM 150-450 H code = 756) MEAN PLATELET VOLUME (BEAKER) 8.8 fL 9.4-12.4 L (test code = 754) NUCLEATED RED BLOOD CELLS 0 /100 WBC 0-0 (BEAKER) (test code = 413) NEUTROPHILS RELATIVE PERCENT 76 % (BEAKER) (test code = 429) LYMPHOCYTES RELATIVE PERCENT 12 % (BEAKER) (test code = 430) MONOCYTES RELATIVE PERCENT 9 % (BEAKER) (test code = 431) EOSINOPHILS RELATIVE PERCENT 2 % (BEAKER) (test code = 432) BASOPHILS RELATIVE PERCENT 0 % (BEAKER) (test code = 437) NEUTROPHILS ABSOLUTE COUNT 7.68 K/ L 1.78-5.38 H (BEAKER) (test code = 670) LYMPHOCYTES ABSOLUTE COUNT 1.23 K/ L 1.32-3.57 L (BEAKER) (test code = 414) MONOCYTES ABSOLUTE COUNT (BEAKER) 0.94 K/ L 0.30-0.82 H (test code = 415) EOSINOPHILS ABSOLUTE COUNT 0.21 K/ L 0.04-0.54 (BEAKER) (test code = 416) BASOPHILS ABSOLUTE COUNT (BEAKER) 0.03 K/ L 0.01-0.08 (test code = 417) IMMATURE GRANULOCYTES-RELATIVE 0.70 % 0.00-1.00 PERCENT (BEAKER) (test code = 2801) MR, PELVIS, [id number] 16:54:00Unlisted Reason for Exam - Click Yes and Enter Reason Below->No [facility] : 1985 Sex: MFINAL REPORT MRI pelvis with and without contrast. INDICATION: Osteomyelitis suspected, pelvis, no prior imaging COMPARISON: MRI dated July 14, 2022, and CT dated June 28, 2022TECHNIQUE: Multiplanar multisequence MRI examination of the pelvis was performed with and without intravenous gadolinium. FINDINGS: A deep left-sided buttock region decubitus ulcer is again seen, measur ing up to 6.5 cm in depth, extending to the ischial tuberosity. No organized, drainable fluid collection is identified. There is cortical erosion, mild marrow edema as well as reactive sclerosis and periosteal reaction at the left ischial tuberosity, compatible with chronic osteomyelitis, not significantly changed from the prior exam. Elsewhere, marrow signal is normal. No fracture or malalignment. No significant hip joint effusion. Symphysis pubis is congruent. In the pelvis, bladder is decompressed with Tejada catheter, and appears mildly trabeculated. Prostate and seminal vesicles are unremarkable. No ascites. A few mildly enlarged external iliac lymph nodes are probably reactive. IMPRESSION: Chronic osteomyelitis of left tissue tuberosity, without significant interval change. Signed: Mikayla Gordon Verified Date/Time: 08/10/2022 16:54:14 Reading Location: [address] Ortho Consult ReadingRoom BLOOD CULTURE IDENTIFICATION PANEL 2022-08-10 13:28:40 Test Item Value Reference Interpretation Comments Range LISTERIA MONOCYTOGENES Not detected Not detected (test code = 8851199) STAPHYLOCOCCUS (test Not detected Not detected code = 0016228) STAPHYLOCOCCUS AUREUS Not detected Not detected (test code = 7140724) STREPTOCOCCUS (test Detected Not detected A First li ne therapy: code = 7091674) VancomycinDe -escalat e based on susceptibilitie s Reference Range : Not Detected STREPTOCOCCUS Not detected Not detected AGALACTIAE (GROUP B) (test code = 2638497) STREPTOCOCCUS Not detected Not detected PNEUMONIAE (test code = 4334764) STREPTOCOCCUS PYOGENES Not detected Not detected (GROUP A) (test code = 1968163) ACINETOBACTER BAUMANNII Not detected Not detected (test code = 0570212) HAEMOPHILUS INFLUENZAE Not detected Not detected (test code = 7722173) NEISSERIA MENINGITIDIS Not detected Not detected (test code = 9467547) ENTEROBACTERIACEAE Not detected Not detected (test code = 0032811) ENTEROBACTER CLOACOE Not detected Not detected COMPLEX (test code = 5597916) KLEBSIELLA OXYTOCA Not detected Not detected (test code = 6998920) KLEBSIELLA PNEUMONIAE Not detected Not detected (test code = 1650) PROTEUS (test code = Not detected Not detected 6632381) SERRATIA MARCESCENS Not detected Not detected (test code = 3624574) ADÁN ALBICANS (test Not detected Not detected code = 8236397) ADÁN GLABRATA (test Not detected Not detected code = 9221477) ADÁN KRUSEI (test Not detected Not detected code = 3648163) ADÁN PARAPSILOSIS Not detected Not detected (test code = 3061698) ADÁN TROPICALIS Not detected Not detected (BKR) (test code = 0651755) ESCHERICHIA COLI (test Not detected Not detected code = 7067176) METHICILLIN-RESISTANCE GENE (test code = 6146266) VANCOMYCIN-RESISTANCE GENE (test code = 5044140) CARBAPENEM-RESISTANCE GENE (test code = 1463503) ENTEROCOCCUS-BEAKER Not detected Not detected (test code = 4101286) PSEUDOMONAS Not detected Not detected AERUGINOSA-BEAKER (test code = 1921281) Other bacteria and resistance markers not targeted by this PCR panel cannot be excluded; therefore clinical correlation and follow up of serology, culture results, and other molecular studies is required. The results are not intended to be used as the sole means for clinical diagnosis or patient management decisions. This sample was tested at the [facility] using the [employer] Blood Culture ID Panel. It is FDA cleared and has been verified and approved by the [facility] for clinical use. This laboratory is CLIA-certified and College ofAmerican Pathologists (CAP)-accredited to perform high complexity testing.BASIC METABOLIC [id number] 06:14:25 Test Item Value Reference Range Interpretation Comments SODIUM (BEAKER) 136 meq/L 136-145 (test code = 381) POTASSIUM 3.7 meq/L 3.5-5.1 (BEAKER) (test code = 379) CHLORIDE (BEAKER) 104 meq/L 98-107 (test code = 382) CO2 (BEAKER) 24 meq/L 22-29 (test code = 355) BLOOD UREA 4 mg/dL 7-21 L NITROGEN (BEAKER) (test code = 354) CREATININE 0.55 mg/dL 0.57-1.25 L (BEAKER) (test code = 358) GLUCOSE RANDOM 96 mg/dL 70-105 (BEAKER) (test code = 652) [...] not appl icable for dialysis patien ts Regulator Tester ID - PB [id number] 06:14:25 Test Item Value Reference Range Interpretation Comments MAGNESIUM (BEAKER) (test code = 1.8 mg/dL 1.6-2.6 627) Regulator Tester ID - PB [id number] 06:14:25 Test Item Value Reference Range Interpretation Comments PHOSPHORUS (BEAKER) (test code = 3.5 mg/dL 2.3-4.7 604) Regulator Tester ID - PB LCBC W/PLT COUNT & AUTO [id number] 05:21:58 Test Item Value Reference Range Interpretation Comments WHITE BLOOD CELL COUNT (BEAKER) 8.8 K/ L 3.5-10.5 (test code = 775) RED BLOOD CELL COUNT (BEAKER) 2.95 M/ L 4.63-6.08 L (test code = 761) HEMOGLOBIN (BEAKER) (test code = 7.7 GM/DL 13.7-17.5 L 410) HEMATOCRIT (BEAKER) (test code = 24.3 % 40.1-51.0 L 411) MEAN CORPUSCULAR VOLUME (BEAKER) 82 fL 79-92 (test code = 753) MEAN CORPUSCULAR HEMOGLOBIN 26.1 pg 25.7-32.2 (BEAKER) (test code = 751) MEAN CORPUSCULAR HEMOGLOBIN CONC 31.7 GM/DL 32.3-36.5 L (BEAKER) (test code = 752) RED CELL DISTRIBUTION WIDTH 18.0 % 11.6-14.4 H (BEAKER) (test code = 412) PLATELET COUNT (BEAKER) (test 590 K/CU MM 150-450 H code = 756) MEAN PLATELET VOLUME (BEAKER) 8.2 fL 9.4-12.4 L (test code = 754) NUCLEATED RED BLOOD CELLS 0 /100 WBC 0-0 (BEAKER) (test code = 413) NEUTROPHILS RELATIVE PERCENT 72 % (BEAKER) (test code = 429) LYMPHOCYTES RELATIVE PERCENT 13 % (BEAKER) (test code = 430) MONOCYTES RELATIVE PERCENT 12 % (BEAKER) (test code = 431) EOSINOPHILS RELATIVE PERCENT 2 % (BEAKER) (test code = 432) BASOPHILS RELATIVE PERCENT 1 % (BEAKER) (test code = 437) NEUTROPHILS ABSOLUTE COUNT 6.29 K/ L 1.78-5.38 H (BEAKER) (test code = 670) LYMPHOCYTES ABSOLUTE COUNT 1.16 K/ L 1.32-3.57 L (BEAKER) (test code = 414) MONOCYTES ABSOLUTE COUNT (BEAKER) 1.09 K/ L 0.30-0.82 H (test code = 415) EOSINOPHILS ABSOLUTE COUNT 0.16 K/ L 0.04-0.54 (BEAKER) (test code = 416) BASOPHILS ABSOLUTE COUNT (BEAKER) 0.04 K/ L 0.01-0.08 (test code = 417) IMMATURE GRANULOCYTES-RELATIVE 0.30 % 0.00-1.00 PERCENT (BEAKER) (test code = 2801) VANCOMYCIN LEVEL, [id number] 22:59:34 Test Item Value Reference Range Interpretation Comments VANCOMYCIN TROUGH (BEAKER) (test 12.0 ug/mL 10.0-20.0 code = 522) Regulator Tester ID - PIAYA LVenous doppler legs [id number] 12:40:08Ejection FractionSLEH ECHO HEARTLAB MKCKESSON CPACSCHI [facility] CenterUrine [id number] 12:17:24 Test Item Value Reference Range Interpretation Comments Result (test code = 6463-4) No growth [facility])2022-08-09 11:38:45 Test Item Value Reference Range Interpretation Comments SARS-COV2/RT-PCR Negative Negative The SARS-Co V-2 target (test code = nucleic acids a re not 2047545) detected in thi s specimen. Negative result [...] revoked sooner. Fact Sheet for Healthcare Providers: https://www.[employer].DevHD m/Documents/Xpert%20Xpress%20SARS%20CoV-2/Fact%20Sheets/962-9647%95IEBZ-ROB-7%20 HEALTHCARE%20PROVIDERS%20FACT%20SHEET.pdf Fact Sheet for Healthcare Patients: https://www.[employer]/Documents/Xpert%20Xp ress%20SARS%20CoV-2/Fact%20Sheets/601-5842%07FMJL-CIJ-1%20PATIENT%20FACT%20SHEET .pdfHEPATIC FUNCTION [id number] 10:52:40 Test Item Value Reference Range Interpretation Comments TOTAL PROTEIN (BEAKER) (test code = 7.3 gm/dL 6.0-8.3 770) ALBUMIN (BEAKER) (test code = 1145) 3.0 g/dL 3.5-5.0 L BILIRUBIN TOTAL (BEAKER) (test code 0.2 mg/dL 0.2-1.2 = 377) BILIRUBIN DIRECT (BEAKER) (test 0.1 mg/dL 0.1-0.5 code = 706) ALKALINE PHOSPHATASE (BEAKER) (test 129 U/L 40-150 code = 346) AST (SGOT) (BEAKER) (test code = 20 U/L 5-34 353) ALT (SGPT) (BEAKER) (test code = 18 U/L 6-55 347) Regulator Tester ID - GIOVANNY [id number] 05:52:03 Test Item Value Reference Range Interpretation Comments PHOSPHORUS (BEAKER) (test code = 3.3 mg/dL 2.3-4.7 604) Regulator Tester ID - BSBASIC METABOLIC [id number] 05:52:02 Test Item Value Reference Range Interpretation Comments SODIUM (BEAKER) 135 meq/L 136-145 L (test code = 381) POTASSIUM 3.7 meq/L 3.5-5.1 (BEAKER) (test code = 379) CHLORIDE (BEAKER) 104 meq/L 98-107 (test code = 382) CO2 (BEAKER) 21 meq/L 22-29 L (test code = 355) BLOOD UREA 5 mg/dL 7-21 L NITROGEN (BEAKER) (test code = 354) CREATININE 0.59 mg/dL 0.57-1.25 (BEAKER) (test code = 358) GLUCOSE RANDOM 100 mg/dL 70-105 (BEAKER) (test code = 652) CALCIUM (BEAKER) 8.3 mg/dL 8.4-10.2 L (test code = 697) EGFR (BEAKER) 126 [...] not appl icable for dialysis patien ts Regulator Tester ID - [id number] 05:52:02 Test Item Value Reference Range Interpretation Comments MAGNESIUM (BEAKER) (test code = 1.8 mg/dL 1.6-2.6 627) Regulator Tester ID - BSCBC W/PLT COUNT & AUTO [id number] 04:49:07 Test Item Value Reference Range Interpretation Comments WHITE BLOOD CELL COUNT (BEAKER) 9.7 K/ L 3.5-10.5 (test code = 775) RED BLOOD CELL COUNT (BEAKER) 3.00 M/ L 4.63-6.08 L (test code = [...] code = 752) RED CELL DISTRIBUTION WIDTH 18.0 % 11.6-14.4 H (BEAKER) (test code = 412) PLATELET COUNT (BEAKER) (test 620 K/CU MM 150-450 H code = 756) MEAN PLATELET VOLUME (BEAKER) 8.2 fL 9.4-12.4 L (test code = 754) NUCLEATED RED BLOOD CELLS 0 /100 WBC 0-0 (BEAKER) (test code = 413) NEUTROPHILS RELATIVE PERCENT 71 % (BEAKER) (test code = 429) LYMPHOCYTES RELATIVE PERCENT 12 % (BEAKER) (test code = 430) MONOCYTES RELATIVE PERCENT 15 % (BEAKER) (test code = 431) EOSINOPHILS RELATIVE PERCENT 1 % (BEAKER) (test code = 432) BASOPHILS RELATIVE PERCENT 0 % (BEAKER) (test code = 437) NEUTROPHILS ABSOLUTE COUNT 6.87 K/ L 1.78-5.38 H (BEAKER) (test code = 670) LYMPHOCYTES ABSOLUTE COUNT 1.21 K/ L 1.32-3.57 L (BEAKER) (test code = 414) MONOCYTES ABSOLUTE COUNT (BEAKER) 1.45 K/ L 0.30-0.82 H (test code = 415) EOSINOPHILS ABSOLUTE COUNT 0.09 K/ L 0.04-0.54 (BEAKER) (test code = 416) BASOPHILS ABSOLUTE COUNT (BEAKER) 0.04 K/ L 0.01-0.08 (test code = 417) IMMATURE GRANULOCYTES-RELATIVE 0.70 % 0.00-1.00 PERCENT (BEAKER) (test code = 2801) RAD, CHEST, 1 VIEW, NON [id number] 16:13:00Reason for exam:- >baselineShould this be performed at the bedside?->Yes [facility] 1985 Sex: MFINAL REPORT TECHNIQUE: Frontal view of the chest. INDICATION: baseline. COMPARISON: 07/24/2022. FINDINGS: LINES/TUBES: Right IJ power port with catheter tip over the mid SVC. HEART AND MEDIASTINUM: Cardiomediastinal contour is stable. LUNGS: Numerous bilateral nodular densities of varying sizes are again noted. A few of these nodules appear decreased in prominence compared to the pr ior examination. No pulmonary edema. PLEURA: No pneumothorax. No significant pleural effusion. SOFT TISSUES AND BONES: Unremarkable. IMPRESSION: 1. Numerous bilateral nodular densities compatible with metastatic disease, as before. Some of these nodules particularly on the left appear slightly decreased in prominence/size. It is difficult to discern whether this represents differences in technique orclinical response. Signed: Mitch Segovia [facility] Verified Date/Time: 08/08/2022 16:13:07 POC-Glucose [id number] 12:48:00 Test Item Value Reference Range Interpretation Comments POC-Glucose Meter (test 85 mg/dL 70-110 : TE STED AT [facility] code = 1538) [address] [facility], 770 30: Regulator Tester/Techni kain ID = [id number] for Lorna, Marlene Lab Interpretation (test Normal code = 84227-6) [facility] [id number] 12:48:00 Test Item Value Reference Range Interpretation Comments POC-Glucose Meter (test 85 mg/dL 70-110 : TE STED AT [facility] code = 1538) [address] [facility], 770 30: Regulator Tester/Techni kain ID = [id number] for Lorna, Marlene Lab Interpretation (test Normal code = 31474-3) [facility]-GLUCOSE [id number] 12:48:00 Test Item Value Reference Range Interpretation Comments POC-GLUCOSE METER 85 mg/dL 70-110 : TESTED A T [facility] 6720 (BEAKER) (test code = [facility], 1538) [address]: Regulator Tester/Techni kain ID = [id number] for Marlene Reagan Urinalysis w/Microscopic + Reflex to [id number] 10:28:30 Test Item Value Reference Range Interpretation Comments Color, UA (test code Yellow = 5778-6) Clarity, UA (test Hazy code = 5767-9) Specific [place], UA 1.028 1.001-1.035 (test code = 5811-5) pH, UA (test code = 6.5 5.0-8.0 5803-2) Protein, UA (test 10 mg/dL Negative A code = 04116-9) Glucose, UA (test Negative Negative code = 365) Ketones, UA (test Negative Negative code = 2514-8) Bilirubin, UA (test Negative Negative code = 87723-6) Blood, UA (test code Negative Negative = 69527-8) Nitrite, UA (test Negative Negative code = 5802-4) Leukocytes, UA (test Large Negative A code = 5799-2) Urobilinogen, UA 0.2 0.2-1.0 (test code = 12001-0) RBC, UA (test code = 8 See_Comment [Autom ated 04345-7) message] The system which generated this result transmitted reference range : /HPF. The reference range was not used to interpret this result as normal/abnormal . WBC, UA (test code = 251 See_Comment [Autom ated 5821-4) message] The system which generated this result transmitted reference range : /HPF. The reference range was not used to interpret this result as normal/abnormal . Bacteria, UA (test Occasional code = 34698-4) Mucus (test code = Rare 8247-9) Specimen Source (test code = 2795) SUMEET (test code = SUMEET) Regulator Tester ID - [auto]Regulator Tester ID - tech Lab Interpretation Abnormal (test code = 62552-8) [facility] Reflex to Culture 2022-08-08 10:28:30 Test Item Value Reference Range Interpretation Comments Color, UA (test code Yellow = 5778-6) Clarity, UA (test Hazy code = 5767-9) Specific [place], UA 1.028 1.001-1.035 (test code = 5811-5) pH, UA (test code = 6.5 5.0-8.0 5803-2) Protein, UA (test 10 mg/dL Negative A code = 47179-3) Glucose, UA (test Negative Negative code = 365) Ketones, UA (test Negative Negative code = 2514-8) Bilirubin, UA (test Negative Negative code = 92716-7) Blood, UA (test code Negative Negative = 41108-1) Nitrite, UA (test Negative Negative code = 5802-4) Leukocytes, UA (test Large Negative A code = 5799-2) Urobilinogen, UA 0.2 0.2-1.0 (test code = 60352-5) RBC, UA (test code = 8 See_Comment [Autom ated 66733-0) message] The system which generated this result transmitted reference range : /HPF. The reference range was not used to interpret this result as normal/abnormal . WBC, UA (test code = 251 See_Comment [Autom ated 5821-4) message] The system which generated this result transmitted reference range : /HPF. The reference range was not used to interpret this result as normal/abnormal . Bacteria, UA (test Occasional code = 89196-0) Mucus (test code = Rare 8247-9) Specimen Source (test code = 2795) SUMEET (test code = SUMEET) Regulator Tester ID - [auto]Regulator Tester ID - tech Lab Interpretation Abnormal (test code = 41079-3) [facility] URINE [id number] 10:28:30 Test Item Value Reference Range Interpretation Comments COLOR (BEAKER) (test code = 470) Yellow CLARITY (BEAKER) (test code = 469) Hazy SPECIFIC GRAVITY UA (BEAKER) (test 1.028 1.001-1.035 code = 468) PH UA (BEAKER) (test code = 467) 6.5 5.0-8.0 PROTEIN UA (BEAKER) (test code = 10 mg/dL Negative A 464) GLUCOSE UA (BEAKER) [...] RBC UA (BEAKER) (test code = 519) 8 /HPF WBC UA (BEAKER) (test code = 520) 251 /HPF BACTERIA (BEAKER) (test code = Occasional 517) MUCUS (BEAKER) (test code = 1574) Rare SOURCE(BEAKER) (test code = 2795) Regulator Tester ID - [auto]Regulator Tester ID - techCBC W/PLT COUNT & AUTO DIFFERENTIAL 2022-08-08 09:51:10 Test Item Value Reference Range Interpretation Comments WHITE BLOOD CELL COUNT (BEAKER) 13.1 K/ L 3.5-10.5 H (test code = 775) RED BLOOD CELL COUNT (BEAKER) 3.11 M/ L 4.63-6.08 L (test code = 761) HEMOGLOBIN (BEAKER) (test code = 8.1 GM/DL 13.7-17.5 L 410) HEMATOCRIT (BEAKER) (test code = 25.4 % 40.1-51.0 L 411) MEAN CORPUSCULAR VOLUME (BEAKER) 82 fL 79-92 (test code = 753) MEAN CORPUSCULAR HEMOGLOBIN 26.0 pg 25.7-32.2 (BEAKER) (test code = 751) MEAN CORPUSCULAR HEMOGLOBIN CONC 31.9 GM/DL 32.3-36.5 L (BEAKER) (test code = 752) RED CELL DISTRIBUTION WIDTH 18.4 % 11.6-14.4 H (BEAKER) (test code = 412) PLATELET COUNT (BEAKER) (test 606 K/CU MM 150-450 H code = 756) MEAN PLATELET VOLUME (BEAKER) 8.3 fL 9.4-12.4 L (test code = 754) NUCLEATED RED BLOOD CELLS 0 /100 WBC 0-0 (BEAKER) (test code = 413) (CELLAVISION MANUAL DIFF)2022-08-08 09:51:10 Test Item Value Reference Range Interpretation Comments NEUTROPHILS - REL 80 % (CELLAVISION)(BEAKER) (test code = 2816) LYMPHOCYTES - REL 8 % (CELLAVISION)(BEAKER) (test code = 2817) MONOCYTES - REL 10 % (CELLAVISION)(BEAKER) (test code = 2818) BANDS - REL (CELLAVISION)(BEAKER) 2 % 0-10 (test code = 2826) NEUTROPHILS - ABS 10.48 K/ul 1.78-5.38 H (CELLAVISION)(BEAKER) (test code = 2830) LYMPHOCYTES - ABS 1.05 K/ul 1.32-3.57 L (CELLAVISION)(BEAKER) (test code = 2831) MONOCYTES - ABS 1.31 K/uL 0.30-0.82 H (CELLAVISION)(BEAKER) (test code = 2832) BANDS - ABS (CELLAVISION)(BEAKER) 0.26 K/uL 0.00-0.80 (test code = 2840) TOTAL COUNTED (BEAKER) (test code 100 = 1351) WBC MORPHOLOGY (BEAKER) (test Normal code = 487) PLT MORPHOLOGY (BEAKER) (test Normal code = 486) ANISOCYTOSIS (BEAKER) (test code 2+ moderate = 961) MICROCYTES (BEAKER) (test code = 2+ moderate 965) ARTIFACT (CELLAVISION)(BEAKER) Present (test code = 3432) PLATELET CONCENTRATION Increased (CELLAVISION)(BEAKER) (test code = 3438) Regulator Tester ID - Enid OverholtUser comments: Slide comments:[id number] 07:56:14 Test Item Value Reference Range Interpretation Comments PARTIAL THROMBOPLASTIN TIME 36.4 seconds 22.5-36.0 H (BEAKER) (test code = 760) PROTHROMBIN TIME/[id number] 07:55:32 Test Item Value Reference Range Interpretation Comments PROTIME (BEAKER) 16.4 seconds 11.9-14.2 H (test code = 759) INR (BEAKER) (test 1.41 See_Comment [Automat ed message] code = 370) The system 3D [employer] II generated this result transmitted ref erence range: <=5.90. The reference range was not used to int erpret this result as normal/abnormal . RECOMMENDED COUMADIN/WARFARIN INR THERAPY RANGESSTANDARD DOSE: 2.0 - 3.0 Includes: PROPHYLAXIS for venous thrombosis, systemic embolization; TREATMENT for venous thrombosis and/or pulmonary embolus.HIGH RISK: Target INR is 2.5-3.5 for patients with mechanical heart valves.LACTIC ACID, [id number] 07:50:51 Test Item Value Reference Range Interpretation Comments LACTATE BLOOD VENOUS 0.92 mmol/L 0.50-2.20 Specime n slightly (2) (BEAKER) (test hemolyzed code = 0612) Regulator Tester ID - MITCHBASIC METABOLIC [id number] 07:45:51 Test Item Value Reference Range Interpretation Comments SODIUM (BEAKER) 140 meq/L 136-145 (test code = 381) POTASSIUM 3.9 meq/L 3.5-5.1 (BEAKER) (test code = 379) CHLORIDE (BEAKER) 109 meq/L 98-107 H (test code = 382) CO2 (BEAKER) 23 meq/L 22-29 (test code = 355) BLOOD UREA 5 mg/dL 7-21 L NITROGEN (BEAKER) (test code = 354) CREATININE 0.56 mg/dL 0.57-1.25 L (BEAKER) (test code = 358) GLUCOSE RANDOM 107 mg/dL 70-105 H (BEAKER) (test code = 652) CALCIUM (BEAKER) 8.5 mg/dL 8.4-10.2 (test code = 697) EGFR (BEAKER) 128 Interpretatio n of eGFR (test code = [...] not appl icable for dialysis patien ts Regulator Tester ID - [id number] 07:45:51 Test Item Value Reference Range Interpretation Comments MAGNESIUM (BEAKER) (test code = 1.9 mg/dL 1.6-2.6 627) Regulator Tester ID - [id number] 07:45:51 Test Item Value Reference Range Interpretation Comments PHOSPHORUS (BEAKER) (test code = 3.5 mg/dL 2.3-4.7 604) Regulator Tester ID - BSCALCIUM, [id number] 07:39:28 Test Item Value Reference Range Interpretation Comments CALCIUM IONIZED (BEAKER) (test 1.15 mmol/L 1.12-1.27 code = 698) PH, BLOOD (BEAKER) (test code = 7.38 1810) BLOOD [id number] 23:00:54 Test Item Value Reference Range Interpretation Comments CULTURE (BEAKER) (test No growth in 5 days code = 1095) BLOOD [id number] 23:00:54 Test Item Value Reference Range Interpretation Comments CULTURE (BEAKER) (test No growth in 5 days code = 1095) The specimen volume collected for this blood culture was below the optimum (10 mL per bottle or 20 mL total). Use of lower volumes may adversely affect recovery and/or detection times of some organisms.Urine [id number] 09:39:06 Test Item Value Reference Range Interpretation Comments Result (test code = 10-19,000 col/mL A 6463-4) Adán albicans Lab Interpretation (test Abnormal code = 85844-9) [facility] [id number] 09:39:06 Test Item Value Reference Range Interpretation Comments Result (test code = 10-19,000 col/mL A 6463-4) Adán albicans Lab Interpretation (test Abnormal code = 40369-7) [facility] [id number] 09:39:06 Test Item Value Reference Range Interpretation Comments Result (test code = 10-19,000 col/mL A 6463-4) Adán albicans Lab Interpretation (test Abnormal code = 03320-6) [facility] [id number] 09:39:06 Test Item Value Reference Range Interpretation Comments Result (test code = 10-19,000 col/mL A 6463-4) Adán albicans Lab Interpretation (test Abnormal code = 88128-0) [facility] [id number] 09:39:06 Test Item Value Reference Range Interpretation Comments CULTURE (BEAKER) (test A 10-19 ,000 col/mL Adán code = 1095) albicans POC-Glucose [id number] 08:29:07 Test Item Value Reference Range Interpretation Comments POC-Glucose Meter (test 94 mg/dL 70-110 : TE STED AT [facility] code = 1538) [address] [place] [address], 770 30: Regulator Tester/Techni kain ID = [id number] for Flowers, Alici a Lab Interpretation (test Normal code = 99074-3) [facility]Glucose [id number] 08:29:07 Test Item Value Reference Range Interpretation Comments POC-Glucose Meter (test 94 mg/dL 70-110 : TE STED AT [facility] code = 1538) [address] [facility], 770 30: Regulator Tester/Techni kain ID = [id number] for Flowers, Alici a Lab Interpretation (test Normal code = 15909-7) [facility]Glucose [id number] 08:29:07 Test Item Value Reference Range Interpretation Comments POC-Glucose Meter (test 94 mg/dL 70-110 : TE STED AT [facility] code = 1538) [address] [facility] [place] [address]: Regulator Tester/Techni kani ID = [id number] for Caren Flowers Lab Interpretation (test Normal code = 87763-4) [facility] HospitalPOCT-GLUCOSE [id number] 08:29:07 Test Item Value Reference Range Interpretation Comments POC-GLUCOSE METER 94 mg/dL 70-110 : TESTED A T [facility] [address] (BEAKER) (test code = TABBY Wooten [facility], 1538) [address]: Regulator Tester/Techni kain ID = [id number] for Briseyda Pepe (CELLAVISION MANUAL DIFF)2022-07-27 06:49:08 Test Item Value [...] CONCENTRATION Adequate (CELLAVISION)(BEAKER) (test code = 3438) Regulator Tester ID - namnguyenUser comments: Slide comments:CBC W/PLT COUNT & AUTO [id number] 06:49:07 Test Item Value Reference Range Interpretation [...] 0-0 (BEAKER) (test code = 413) POCT-GLUCOSE [id number] 08:07:16 Test Item Value Reference Range Interpretation Comments POC-GLUCOSE METER 91 mg/dL 70-110 : TESTED Rose Moreno [facility] 6720 (BEAKER) (test code = TABBY [place], 1538) [address]: Regulator Tester/Techni kain ID = [id number] for NINI SIMMONSL (CELLAVISION MANUAL DIFF)2022-07-26 07:01:58 Test Item Value [...] CONCENTRATION Decreased (CELLAVISION)(BEAKER) (test code = 3438) Regulator Tester ID - Maine Mckenna comments: Slide comments:CBC W/PLT COUNT & AUTO [id number] 07:01:57 Test Item Value Reference Range Interpretation [...] WBC 0-0 (BEAKER) (test code = 413) [id number] 03:56:45 Test Item Value Reference Range Interpretation Comments MAGNESIUM (BEAKER) 1.8 mg/dL 1.6-2.6 Specimen slightly (test code = 627) hemolyzed Regulator Tester ID - YARED [id number] 03:56:45 Test Item Value Reference Range Interpretation Comments PHOSPHORUS (BEAKER) 2.4 mg/dL 2.3-4.7 Specimen slightly (test code = 604) hemolyzed Regulator Tester ID - YARED GBASIC METABOLIC [id number] 03:56:45 Test Item Value Reference Range Interpretation [...] not appl icable for dialysis patien ts Regulator Tester ID - YARED GVANCOMYCIN LEVEL, [id number] 21:58:17 Test Item Value Reference Range Interpretation Comments VANCOMYCIN TROUGH (BEAKER) (test 12.3 ug/mL 10.0-20.0 code = 522) Regulator Tester ID - BSPOCT-GLUCOSE [id number] 06:31:40 Test Item Value Reference Range Interpretation Comments POC-GLUCOSE METER 115 mg/dL 70-110 H : TESTED A T [facility] 67[address] (BEAKER) (test code = TABBY Wooten [facility], 1538) [address]: Regulator Tester/Techni kain ID = [id number] for Cl Gabriele donovan (CELLAVISION MANUAL DIFF)2022-07-25 [...] CONCENTRATION Decreased (CELLAVISION)(BEAKER) (test code = 3438) Regulator Tester ID - [id number] ID - Chau comments: Slide comments:CBC W/PLT COUNT & AUTO [id number] 06:09:54 Test Item Value Reference Range Interpretation [...] CT, CHEST WITH IV CONTRAST- PE TEST [id number] 05:32:00Unlisted Reason for Exam - Click Yes and Enter Reason Below->No [facility] : 1985 Sex: MFINAL REPORT EXAMINATION: CT, [...] interval of only 14 days.Signed: Karlee Little Verified Date/Time: 07/25/2022 05:32:35 [id number] 04:52:12 Test Item Value Reference Range Interpretation Comments PHOSPHORUS (BEAKER) (test code = 1.6 mg/dL 2.3-4.7 L 604) Regulator Tester ID - KRISTINA WHEPATIC FUNCTION [id number] 04:52:12 Test Item Value Reference Range Interpretation [...] (test code = 31 U/L 6-55 347) Regulator Tester ID - KRISTINA WBASIC METABOLIC [id number] 04:52:11 Test Item Value Reference Range Interpretation [...] not appl icable for dialysis patien ts Regulator Tester ID Joe ACEVEDO [id number] 04:52:11 Test Item Value Reference Range Interpretation Comments MAGNESIUM (BEAKER) (test code = 1.5 mg/dL 1.6-2.6 L 627) Regulator Tester ID Joe ACEVEDO [id number] 03:26:15 Test Item Value Reference Range Interpretation Comments PHOSPHORUS (BEAKER) (test code = 1.4 mg/dL 2.3-4.7 LL 604) Regulator Tester ID - KRISTINA WURIC [id number] 03:00:17 Test Item Value Reference Range Interpretation Comments URIC ACID (BEAKER) (test code = 2.6 mg/dL 2.6-7.2 773) Regulator Tester ID Joe ACEVEDO WLACTATE DEHYDROGENASE (LDH)2022-07-25 03:00:17 Test Item Value Reference Range Interpretation Comments LACTATE DEHYDROGENASE (BEAKER) (test 373 U/L 125-220 H code = 635) Regulator Tester ID - KRISTINA WHIGH SENSITIVITY TROPONIN [id number] 02:31:44 Test Item Value Reference Range Interpretation Comments HIGH SENSITIVITY < pg/ml See_Comment [Automated message] TROPONIN I (test code = The system which 3930267) generated this result transmitted ref erence range: <=53. Th e reference range was not used to interpr et this result as normal/abnormal . The High-Sensitivity Troponin I assay is performed on Siemens Morning Tec IM Analyzer. Results of this assay should [...] CONCENTRATION Adequate (CELLAVISION)(BEAKER) (test code = 3438) Regulator Tester ID - [id number] ID - [id number] ID - Obed Fermincarmitaximena Reva comments: Slide comments:CBC W/PLT COUNT & AUTO [id number] 00:46:39 Test Item Value Reference Range Interpretation [...] = 413) Urinalysis w/Microscopic + Reflex to [id number] 23:49:44 Test Item Value Reference Range Interpretation Comments Color, UA (test code Dark Yellow = 5778-6) Clarity, UA (test Slightly Hazy code = 5767-9) Specific [place], UA 1.020 1.001-1.035 (test code = 5811-5) pH, UA (test code = 7.0 5.0-8.0 5803-2) Protein, UA (test 30 mg/dL negative A code = 66392-2) Glucose, UA (test Negative Negative code = 365) Ketones, UA (test Negative negative code = 2514-8) Bilirubin, UA (test Negative Negative code = 16917-3) Blood, UA (test code Trace Negative A = 04391-8) Nitrite, UA (test Negative Negative code = 5802-4) Leukocytes, UA (test Negative Negative code = 5799-2) Urobilinogen, UA 0.2 (test code = 74500-1) RBC, UA (test code = 9 See_Comment [Autom ated 26947-5) message] The system which generated this result [...] . Bacteria, UA (test Rare code = 38255-7) Mucus (test code = Rare 8247-9) Squam Epithel, UA 5 See_Comment [Automate d (test code = 87002-1) messag e] The system which generated this result transmitted reference range : /HPF. The reference range was not used to interpret this result as normal/abnormal . Crystals, Urine (test Occasional None Seen A code = 09657-3) Specimen Source (test code = 2795) SUMEET (test code = SUMEET) Regulator Tester ID - tech Lab Interpretation Abnormal (test code = 98076-7) [facility] Reflex to Culture 2022-07-24 23:49:44 Test Item Value Reference Range Interpretation Comments Color, UA (test code Dark Yellow = 5778-6) Clarity, UA (test Slightly Hazy code = 5767-9) Specific [place], UA 1.020 1.001-1.035 (test code = 5811-5) pH, UA (test code = 7.0 5.0-8.0 5803-2) Protein, UA (test 30 mg/dL negative A code = 09184-0) Glucose, UA (test Negative Negative code = 365) Ketones, UA (test Negative negative code = 2514-8) Bilirubin, UA (test Negative Negative code = 43194-8) Blood, UA (test code Trace Negative A = 40820-1) Nitrite, UA (test Negative Negative code = 5802-4) Leukocytes, UA (test Negative Negative code = 5799-2) Urobilinogen, UA 0.2 (test code = 06631-5) RBC, UA (test code = 9 See_Comment [Autom ated 94228-3) message] The system which generated this result [...] . Bacteria, UA (test Rare code = 15914-0) Mucus (test code = Rare 8247-9) Squam Epithel, UA 5 See_Comment [Automate d (test code = 17290-3) messag e] The system which generated this result transmitted reference range : /HPF. The reference range was not used to interpret this result as normal/abnormal . Crystals, Urine (test Occasional None Seen A code = 66886-7) Specimen Source (test code = 2795) SUMEET (test code = SUMEET) Regulator Tester ID - tech Lab Interpretation Abnormal (test code = 52120-3) [facility]/Microscopic + Reflex to Culture 2022-07-24 23:49:44 Test Item Value Reference Range Interpretation Comments Color, UA (test code Dark Yellow = 5778-6) Clarity, UA (test Slightly Hazy code = 5767-9) Specific [place], UA 1.020 1.001-1.035 (test code = 5811-5) pH, UA (test code = 7.0 5.0-8.0 5803-2) Protein, UA (test 30 mg/dL negative A code = 91265-6) Glucose, UA (test Negative Negative code = 365) Ketones, UA (test Negative negative code = 2514-8) Bilirubin, UA (test Negative Negative code = 69570-4) Blood, UA (test code Trace Negative A = 15888-0) Nitrite, UA (test Negative Negative code = 5802-4) Leukocytes, UA (test Negative Negative code = 5799-2) Urobilinogen, UA 0.2 (test code = 47181-4) RBC, UA (test code = 9 See_Comment [Autom ated 82525-8) message] The system which generated this result [...] . Bacteria, UA (test Rare code = 02470-5) Mucus (test code = Rare 8247-9) Squam Epithel, UA 5 See_Comment [Automate d (test code = 23106-4) messag e] The system which generated this result transmitted reference range : /HPF. The reference range was not used to interpret this result as normal/abnormal . Crystals, Urine (test Occasional None Seen A code = 77952-8) Specimen Source (test code = 2795) SUMEET (test code = SUMEET) Regulator Tester ID - tech Lab Interpretation Abnormal (test code = 53358-3) [facility] URINE [id number] 23:49:44 Test Item Value Reference Range Interpretation [...] code = 1521) SOURCE(BEAKER) (test code = 2795) Regulator Tester ID - techSARS-CoV2/Influenza/RSV RT-PCR (Symptomatic ONLY)2022-07-24 22:41:59 Test Item Value Reference Interpretation Comments Range SARS-COV2/RT-PCR Negative Negative The SARS-Co V-2 (test code = target nucleic 16035-4) acids are not detected in thi s [...] om SARS-CoV-2 in a nasopharyngeal swab specimen [facility] from individual s suspected of COVID-19 by the ir healthcare provider. Influenza A RT-PCR Negative Negative The Flu A target (test code = [place] 39273-1) not detected in this specimen. Influenza B RT-PCR Negative Negative The Flu B target (test code = [place] 30317-4) not detected in this specimen. RSV by RT-PCR (test Negative Negative The RSV target code = 11819-0) nucleic acid s are not detected in [...] the Act. Fact Sheet for Healthcare Providers:https://w [employer]/Docu ments/Xpert%20Xpres s%20SARS%20CoV-2/Fa ct%20Sheets/302-390 2%16RLIH-TZY-5%20HE ALTHCARE%20PROVIDER S%20FACT%20SHEET.pd f Fact Sheet for Healthcare Patients:https://ww [employer]/Docum ents/Xpert%20Xpress %20SARS%20Cov-2/Fac t%20Sheets/302-3801 %67IYKF-SBE-5%20PAT IENT%20FACT%20SHEET .pdf Lab Interpretation Normal (test code = 02805-0) [facility]Symptomatic ONLY) 2022-07-24 22:41:59 Test Item Value Reference Interpretation Comments Range SARS-COV2/RT-PCR Negative Negative The SARS-Co V-2 (test code = target nucleic 66240-8) acids are not detected in thi s [...] (test code = [place] 13259-9) not detected in this specimen. Influenza B RT-PCR Negative Negative The Flu B target (test code = [place] re 53487-3) not detected in this specimen. RSV by RT-PCR (test Negative Negative The RSV target code = 72111-3) nucleic acid s are not detected in [...] SARS-CoV-2/Flu/RSV by their healthcare provider. Results from [facility] Xpert Xpress SARS-CoV-2/Flu/RSV test should be correlated [...] the Act. Fact Sheet for Healthcare Providers:https://w [employer]/Docu ments/Xpert%20Xpres s%20SARS%20CoV-2/Fa ct%20Sheets/302-390 2%42UFWN-HUW-0%20HE ALTHCARE%20PROVIDER S%20FACT%20SHEET.pd f Fact Sheet for Healthcare Patients:https://[employer]/Docum ents/Xpert%20Xpress %20SARS%20Cov-2/Fac t%20Sheets/302-3801 %67UCMZ-OPZ-4%20PAT IENT%20FACT%20SHEET .pdf Lab Interpretation Normal (test code = 68241-2) [facility]V [facility] (Symptomatic ONLY) 2022-07-24 22:41:59 Test Item Value Reference Interpretation Comments Range SARS-COV2/RT-PCR Negative Negative The SARS-Co V-2 (test code = target nucleic 77853-0) acids are not detected in thi s [...] (test code = [place] [address]-1) not detected in this specimen. Influenza B RT-PCR Negative Negative The Flu B target (test code = [place] 75899-7) not detected in this specimen. RSV by RT-PCR (test Negative Negative The RSV target code = 64843-4) nucleic acid s are not detected in [...] SARS-CoV-2/Flu/RSV by their healthcare provider. Results from [facility] Xpert Xpress SARS-CoV-2/Flu/RSV test should be correlated [...] the Act. Fact Sheet for Healthcare Providers:https://w ww[employer]/Docu ments/Xpert%20Xpres s%20SARS%20CoV-2/Fa ct%20Sheets/302-390 2%26JHAB-IWR-2%20HE ALTHCARE%20PROVIDER S%20FACT%20SHEET.pd f Fact Sheet for Healthcare Patients:https://[employer] w[employer]/Docum ents/Xpert%20Xpress %20SARS%20Cov-2/Fac t%20Sheets/302-3801 %45PEMQ-JUV-3%20PAT IENT%20FACT%20SHEET .pdf Lab Interpretation Normal (test code = 34126-4) [facility]V [facility] (Symptomatic ONLY) 2022-07-24 22:41:59 Test Item Value Reference Interpretation Comments Range SARS-COV2/RT-PCR Negative Negative The SARS-Co V-2 (test code = target nucleic 95278-0) acids are not detected in thi s [...] (test code = [place] [address]-6) not detected in this specimen. Influenza B RT-PCR Negative Negative The Flu B target (test code = nucleic [place] re 14369-5) not detected in this specimen. RSV by RT-PCR (test Negative Negative The RSV target code = 29331-2) nucleic acid s are not detected in [...] SARS-CoV-2/Flu/RSV by their healthcare provider. Results from [facility] Xpert Xpress SARS-CoV-2/Flu/RSV test should be correlated [...] the Act. Fact Sheet for Healthcare Providers:https://w [employer]/Docu ments/Xpert%20Xpres s%20SARS%20CoV-2/Fa ct%20Sheets/302-390 2%91WYBM-OFR-7%20HE ALTHCARE%20PROVIDER S%20FACT%20SHEET.pd f Fact Sheet for Healthcare Patients:https://[employer]/Docum ents/Xpert%20Xpress %20SARS%20Cov-2/Fac t%20Sheets/302-3801 %30QJKP-GIS-5%20PAT IENT%20FACT%20SHEET .pdf Lab Interpretation Normal (test code = 46236-8) [facility] (Symptomatic ONLY) 2022-07-24 22:41:59 Test Item Value Reference Interpretation Comments Range SARS-COV2/RT-PCR Negative Negative The SARS-Co V-2 (test code = target nucleic 16029-6) acids are not detected in thi s [...] (test code = [place] re 50829-6) not detected in this specimen. Influenza B RT-PCR Negative Negative The Flu B target (test code = nucleic acids a re 55532-0) not detected in this specimen. RSV by RT-PCR (test Negative Negative The RSV target code = 75943-2) nucleic acid s are not detected in [...] of the Act. Fact Sheet for Healthcare Providers:https://[employer]/Docu ments/Xpert%20Xpres s%20SARS%20CoV-2/Fa ct%20Sheets/302-390 2%11DHBS-ZMQ-9%20HE ALTHCARE%20PROVIDER S%20FACT%20SHEET.pd f Fact Sheet for Healthcare Patients:https://[employer]/Docum ents/Xpert%20Xpress %20SARS%20Cov-2/Fac t%20Sheets/302-3801 %98DHDZ-NCJ-7%20PAT IENT%20FACT%20SHEET .pdf Lab Interpretation Normal (test code = 27928-4) [facility]FLUENZA/RSV [id number] 22:41:59 Test Item Value Reference Range Interpretation Comments SARS-COV2/RT-PCR Negative Negative The SARS-Co V-2 target (test code = nucleic acids a re not 5363939) detected in thi s specimen. Negat leonardo [...] individuals emperatriz pected of COVID-19 by the [facility] ide. INFLUENZA A RT-PCR Negative Negative The Flu A target nucleic (test code = acids are not d etected in 19100811) this specimen. INFLUENZA B RT-PCR Negative Negative The Flu B target nucleic (test code = acids are not d etected in 19100812) this specimen. RSV RT-PCR (test Negative Negative The RSV tar get nucleic code = 7608072) acids are no t detected in this [...] Xpress SARS-CoV-2/Flu/RSV by their healthcareprovider. Results from [facility] Xpert Xpress SARS-CoV-2/Flu/RSV test should be correlated [...] of the Act.Fact Sheet for Healthcare Providers:https ://www.[employer]/Documents/Xpert%20Xpress%20SARS%20CoV-2/Fact%20Sheets/302-390 2%09YBID-AIJ-7%20HEALTHCARE%20PROVIDERS%20FACT%20SHEET.pdfFact Sheet for Healthcare Patients:https://www.KISS[employer]/Docum ents/Xpert%20Xpress%20SARS%20Cov-2/Fact%20Sheets/302-3801%99ORCV-AWT-3%20PATIENT %20FACT%20SHEET.pdfCOMPREHENSIVE METABOLIC [id number] 22:16:49 Test Item Value Reference Range Interpretation [...] high >=90 G2 Mildly decreased 60-89 G3a Mild ly to moderately 45-5 9 G3b Moderately to [...] not appl icable for dialysis patien ts Regulator Tester ID - BSLACTIC ACID, [id number] 22:15:29 Test Item Value Reference Range Interpretation Comments LACTATE BLOOD VENOUS (2) (BEAKER) 1.62 mmol/L 0.50-2.20 (test code = 2872) Regulator Tester ID - [id number] 22:08:09 Test Item Value Reference Range Interpretation Comments PARTIAL THROMBOPLASTIN TIME 35.1 seconds 22.5-36.0 (BEAKER) (test code = 760) PROTHROMBIN TIME/[id number] 22:07:28 Test Item Value Reference Range Interpretation Comments PROTIME (BEAKER) 16.1 seconds 11.9-14.2 H (test code = 759) INR (BEAKER) (test 1.37 See_Comment [Automat ed message] code = 370) The system 3D F[employer]URE VISION II generated this result transmitted ref erence range: <=5.90. The reference range was not used to int erpret this result as normal/abnormal . RECOMMENDED COUMADIN/WARFARIN INR THERAPY RANGESSTANDARD DOSE: 2.0 - 3.0 Includes: PROPHYLAXIS for venous thrombosis, systemic embolization; TREATMENT for venous thrombosis and/or pulmonary embolus.HIGH RISK: Target INR is 2.5-3.5 for patients with mechanical heart valves.RAD, CHEST, 1 VIEW, NON [id number] 22:05:00Reason for exam:->FEVERReason for exam:->NAUSEAShould this be performed at the bedside?->Yes [facility] 1985 Sex: MFINAL [...] 07/24/2022 10:05 PMCBC W/PLT COUNT & AUTO [id number] 07:53:20 Test Item Value Reference Range Interpretation [...] CONCENTRATION Increased (CELLAVISION)(BEAKER) (test code = 3438) Regulator Tester ID - giovanny Mojica comments: Slide comments:URIC [id number] 04:52:45 Test Item Value Reference Range Interpretation Comments URIC ACID (BEAKER) (test code = 1.7 mg/dL 2.6-7.2 L 773) Regulator Tester ID - YARED [id number] 04:52:16 Test Item Value Reference Range Interpretation Comments PHOSPHORUS (BEAKER) (test code = 2.5 mg/dL 2.3-4.7 604) Regulator Tester ID - YARED GHEPATIC FUNCTION [id number] 04:52:16 Test Item Value Reference Range Interpretation [...] (test code = 14 U/L 6-55 347) Regulator Tester ID - YARED GBASIC METABOLIC [id number] 04:52:15 Test Item Value Reference Range Interpretation [...] not appl icable for dialysis patien ts Regulator Tester ID - YARED GHEPATIC FUNCTION [id number] 05:41:39 Test Item Value Reference Range Interpretation [...] (test code = 14 U/L 6-55 347) Regulator Tester ID - PB [id number] 05:41:38 Test Item Value Reference Range Interpretation Comments PHOSPHORUS (BEAKER) (test code = 2.8 mg/dL 2.3-4.7 604) Regulator Tester ID - PB LURIC [id number] 05:41:38 Test Item Value Reference Range Interpretation Comments URIC ACID (BEAKER) (test code = 2.3 mg/dL 2.6-7.2 L 773) Regulator Tester ID - PB LBASIC METABOLIC [id number] 05:41:37 Test Item Value Reference Range Interpretation [...] not appl icable for dialysis patien ts Regulator Tester ID - PIAYA LCBC W/PLT COUNT & AUTO [id number] 05:13:44 Test Item Value Reference Range Interpretation [...] SARS-Co V-2 (test code = target nucleic 32406-7) acids are not detected in thi s [...] revoked sooner. Fact Sheet for Healthcare Providers: https://www.[employer]/Documents/Xp ert%20Xpress%20SAR S%20CoV-2/Fact%20S heets/867-0985%20S ARS-COV-2%20HEALTH CARE%20PROVIDERS%2 0FACT%20SHEET.pdf Fact Sheet for Healthcare Patients: https://www.[employer]/Documents/Xp ert%20Xpress%20SAR S%20CoV-2/Fact%20S heets/302-3801%20S ARS-COV-2%20PATIEN T%20FACT%20SHEET.p df Lab Interpretation Normal (test code = 65093-6) [facility]16 23:26:07 Test Item Value Reference Interpretation Comments Range SARS-COV2/RT-PCR Negative Negative The SARS-Co V-2 (test code = target nucleic 46489-1) acids are not detected in thi s [...] revoked sooner. Fact Sheet for Healthcare Providers: https://www.[employer]/Documents/Xp ert%20Xpress%20SAR S%20CoV-2/Fact%20S heets/302-3802%20S ARS-COV-2%20HEALTH CARE%20PROVIDERS%2 0FACT%20SHEET.pdf Fact Sheet for Healthcare Patients: https://www.[employer]/Documents/Xp ert%20Xpress%20SAR S%20CoV-2/Fact%20S heets/302-3801%20S ARS-COV-2%20PATIEN T%20FACT%20SHEET.p df Lab Interpretation Normal (test code = 28571-3) [facility]2022-07-16 23:26:07 Test Item Value Reference Interpretation Comments Range SARS-COV2/RT-PCR Negative Negative The SARS-Co V-2 (test code = target nucleic 66838-1) acids are not detected in thi s [...] revoked sooner. Fact Sheet for Healthcare Providers: https://www.[employer]/Documents/Xp ert%20Xpress%20SAR S%20CoV-2/Fact%20S heets/302-3802%20S ARS-COV-2%20HEALTH CARE%20PROVIDERS%2 0FACT%20SHEET.pdf Fact Sheet for Healthcare Patients: https://www.[employer]/Documents/Xp ert%20Xpress%20SAR S%20CoV-2/Fact%20S heets/302-3801%20S ARS-COV-2%20PATIEN T%20FACT%20SHEET.p df Lab Interpretation Normal (test code = 77987-8) [facility]2022-07-16 23:26:07 Test Item Value Reference Interpretation Comments Range SARS-COV2/RT-PCR Negative Negative The SARS-Co V-2 (test code = target nucleic 50333-4) acids are not detected in thi s [...] revoked sooner. Fact Sheet for Healthcare Providers: https://www.[employer]/Documents/Xp ert%20Xpress%20SAR S%20CoV-2/Fact%20S heets/302-6542%20S ARS-COV-2%20HEALTH CARE%20PROVIDERS%2 0FACT%20SHEET.pdf Fact Sheet for Healthcare Patients: https://www.[employer]/Documents/Xp ert%20Xpress%20SAR S%20CoV-2/Fact%20S heets/3023801%20S ARS-COV-2%20PATIEN T%20FACT%20SHEET.p df Lab Interpretation Normal (test code = 64378-9) [facility])2022-07-16 23:26:07 Test Item Value Reference Range Interpretation Comments SARS-COV2/RT-PCR Negative Negative The SARS-Co V-2 target (test code = nucleic acids a re not 4049387) detected in thi s specimen. Negative result [...] revoked sooner. Fact Sheet for Healthcare Providers: https://www.Fanitics.co m/Documents/Xpert%20Xpress%20SARS%20CoV-2/Fact%20Sheets/302-7192%99DIOC-TNB-1%20 HEALTHCARE%20PROVIDERS%20FACT%20SHEET.pdf Fact Sheet for Healthcare Patients: https://www.KISSmetrics/Documents/Xpert%20Xp ress%20SARS%20CoV-2/Fact%20Sheets/3023801%91OTII-EXQ-2%20PATIENT%20FACT%20SHEET .pdfSputum Culture + Gram [id number] 21:52:47 Test Item Value Reference Range Interpretation Comments Result (test code = Oropharyngeal 6463-4) contamination, specimen rejected. Recollect requested. Gram Stain Result 3+ gram variable rods (test code = 1123) [facility] Culture + Gram [id number] 21:52:47 Test Item Value Reference Range Interpretation Comments Result (test code = Oropharyngeal 6463-4) contamination, specimen rejected. Recollect requested. Gram Stain Result 3+ gram variable rods (test code = 1123) [facility] Culture + Gram [id number] 21:52:47 Test Item Value Reference Range Interpretation Comments Result (test code = Oropharyngeal 6463-4) contamination, specimen rejected. Recollect requested. Gram Stain Result 3+ gram variable rods (test code = 1123) [facility] Culture + Gram [id number] 21:52:47 Test Item Value Reference Range Interpretation Comments Result (test code = Oropharyngeal 6463-4) contamination, specimen rejected. Recollect requested. Gram Stain Result 3+ gram variable rods (test code = 1123) [facility] Culture + Gram [id number] 21:52:47 Test Item Value Reference Range Interpretation Comments Result (test code = Oropharyngeal 6463-4) contamination, specimen rejected. Recollect requested. Gram Stain Result 3+ gram variable rods (test code = 1123) [facility] CULTURE + GRAM [id number] 21:52:47 Test Item Value Reference Range Interpretation Comments CULTURE (BEAKER) Oropharyngeal (test code = 1095) contamination, specimen rejected. Recollect requested. GRAM STAIN RESULT <1+ WBCs (BEAKER) (test code = 1123) GRAM STAIN RESULT >25/LPF epithelial cells (BEAKER) (test code = 15631) GRAM STAIN RESULT 3+ gram positive cocci in (BEAKER) (test code pairs and clusters = 30762) GRAM STAIN RESULT 1+ yeast (BEAKER) (test code = 587976) GRAM STAIN RESULT 3+ gram variable rods (BEAKER) (test code = 072277) MR, PELVIS, WITHOUT [id number] 10:39:00Unlisted Reason for Exam - Click Yes and Enter Reason Below->No [facility] 1985 Sex: [...] decubitus ulcer, no drainable fluid collection Signed: Mikayla Gordon Verified Date/Time: 07/16/2022 10:39:44 Reading Location: [facility] B1 C013X Ortho Consult Reading Room MR [id number] 10:00:43 Test Item Value Reference Range Interpretation Comments Result (test code = 6463-4) No [facility] [id number] 10:00:43 Test Item Value Reference Range Interpretation Comments Result (test code = 6463-4) No [facility] [id number] 10:00:43 Test Item Value Reference Range Interpretation Comments Result (test code = 6463-4) No [facility] [id number] 10:00:43 Test Item Value Reference Range Interpretation Comments Result (test code = 6463-4) No [facility] [id number] 10:00:43 Test Item Value Reference Range Interpretation Comments Result (test code = 6463-4) No [facility] [id number] 10:00:43 Test Item Value Reference Range Interpretation Comments CULTURE (BEAKER) (test code No MRSA isolated = 1095) [id number] 05:30:09 Test Item Value Reference Range Interpretation Comments PHOSPHORUS (BEAKER) (test code = 2.9 mg/dL 2.3-4.7 604) Regulator Tester ID - MARCOURIC [id number] 05:30:09 Test Item Value Reference Range Interpretation Comments URIC ACID (BEAKER) (test code = 2.9 mg/dL 2.6-7.2 773) Regulator Tester ID - MARCOHEPATIC FUNCTION [id number] 05:30:09 Test Item Value Reference Range Interpretation [...] (test code = 16 U/L 6-55 347) Regulator Tester ID - MARCOBASIC METABOLIC [id number] 05:30:08 Test Item Value Reference Range Interpretation [...] not appl icable for dialysis patien ts Regulator Tester ID - MARCOCBC W/PLT COUNT & AUTO [id number] 05:14:04 Test Item Value Reference Range Interpretation [...] (BEAKER) (test code = 2801) HEPATIC FUNCTION [id number] 06:46:19 Test Item Value Reference Range Interpretation [...] (test code = 18 U/L 6-55 347) Regulator Tester ID - PB LBASIC METABOLIC [id number] 06:46:18 Test Item Value Reference Range Interpretation [...] high >=90 G2 Mildly decreased 60-89 G3a Mild ly to moderately 45-5 9 G3b Moderately to [...] not appl icable for dialysis patien ts Regulator Tester ID - PB [id number] 06:46:18 Test Item Value Reference Range Interpretation Comments PHOSPHORUS (BEAKER) (test code = 2.8 mg/dL 2.3-4.7 604) Regulator Tester ID - SURJITNOE LURIC [id number] 06:46:18 Test Item Value Reference Range Interpretation Comments URIC ACID (BEAKER) (test code = 2.9 mg/dL 2.6-7.2 773) Regulator Tester ID - PB LCBC W/PLT COUNT & AUTO [id number] 06:22:27 Test Item Value Reference Range Interpretation [...] PERCENT (BEAKER) (test code = 2801) BLOOD [id number] 18:00:54 Test Item Value Reference Range Interpretation Comments CULTURE (BEAKER) (test No growth in 5 days code = 1095) BLOOD [id number] 18:00:53 Test Item Value Reference Range Interpretation Comments CULTURE (BEAKER) (test No growth in 5 days code = 1095) BLOOD CULTURE, ROUTINE [id number] 13:35:06 Test Item Value Reference Range Interpretation Comments CULTURE (BEAKER) (test code = 1095) No growth VANCOMYCIN LEVEL, [id number] 09:17:30 Test Item Value Reference Range Interpretation Comments VANCOMYCIN TROUGH (BEAKER) (test 13.6 ug/mL 10.0-20.0 code = 522) Regulator Tester ID - MARCOURIC [id number] 05:30:07 Test Item Value Reference Range Interpretation Comments URIC ACID (BEAKER) (test code = 3.5 mg/dL 2.6-7.2 773) Regulator Tester ID - PB LHEPATIC FUNCTION [id number] 05:30:07 Test Item Value Reference Range Interpretation [...] (test code = 21 U/L 6-55 347) Regulator Tester ID - SURJITNOE LBASIC METABOLIC [id number] 05:30:06 Test Item Value Reference Range Interpretation [...] not appl icable for dialysis patien ts Regulator Tester ID - PINOE [id number] 05:30:06 Test Item Value Reference Range Interpretation Comments PHOSPHORUS (BEAKER) (test code = 3.0 mg/dL 2.3-4.7 604) Regulator Tester ID - PB LCBC W/PLT COUNT & AUTO [id number] 05:29:51 Test Item Value Reference Range Interpretation [...] 0.00-1.00 PERCENT (BEAKER) (test code = 2801) [id number] 11:42:41 Test Item Value Reference Range Interpretation Comments MAGNESIUM (BEAKER) (test code = 2.0 mg/dL 1.6-2.6 627) Regulator Tester ID - [id number] 05:38:07 Test Item Value Reference Range Interpretation Comments PHOSPHORUS (BEAKER) (test code = 3.4 mg/dL 2.3-4.7 604) Regulator Tester ID - ADMINURIC [id number] 05:38:07 Test Item Value Reference Range Interpretation Comments URIC ACID (BEAKER) (test code = 5.5 mg/dL 2.6-7.2 773) Regulator Tester ID - ADMINHEPATIC FUNCTION [id number] 05:38:07 Test Item Value Reference Range Interpretation [...] (test code = 25 U/L 6-55 347) Regulator Tester ID - ADMINBASIC METABOLIC [id number] 05:38:06 Test Item Value Reference Range Interpretation [...] not as accur ate as Creatinine Em penace in predicting glom erular filtration rate . Estimated GFR is not appl icable for dialysis patien ts Regulator Tester ID - ADMINCBC W/PLT COUNT & AUTO [id number] 05:28:25 Test Item Value Reference Range Interpretation [...] 0.00-1.00 PERCENT (BEAKER) (test code = 2801) [id number] 05:23:00 Test Item Value Reference Range Interpretation Comments PHOSPHORUS (BEAKER) (test code = 3.7 mg/dL 2.3-4.7 604) Regulator Tester ID - MARCOURIC [id number] 05:23:00 Test Item Value Reference Range Interpretation Comments URIC ACID (BEAKER) (test code = 6.6 mg/dL 2.6-7.2 773) Regulator Tester ID - MARCOHEPATIC FUNCTION [id number] 05:23:00 Test Item Value Reference Range Interpretation [...] (test code = 29 U/L 6-55 347) Regulator Tester ID - MARCOBASIC METABOLIC [id number] 05:22:59 Test Item Value Reference Range Interpretation [...] not appl icable for dialysis patien ts Regulator Tester ID - MARCOCBC W/PLT COUNT & AUTO [id number] 04:54:47 Test Item Value Reference Range Interpretation [...] = 2801) Urinalysis w/Microscopic + Reflex to [id number] 00:52:51 Test Item Value Reference Range Interpretation Comments Color, UA (test code Yellow = 5778-6) Clarity, UA (test Cloudy code = 5767-9) Specific [place], UA 1.026 1.001-1.035 (test code = 5811-5) pH, UA (test code = 6.0 5.0-8.0 5803-2) Protein, UA (test 70 mg/dL Negative A code = 70866-7) Glucose, UA (test Negative Negative code = 365) Ketones, UA (test Negative Negative code = 2514-8) Bilirubin, UA (test Negative Negative code = 20606-4) Blood, UA (test code Small Negative A = 64712-2) Nitrite, UA (test Negative Negative code = 5802-4) Leukocytes, UA (test Large Negative A code = 5799-2) Urobilinogen, UA 0.2 0.2-1.0 (test code = 81272-5) RBC, UA (test code = 33 See_Comment [Autom ated 83161-8) message] The system which generated this result [...] 20 See_Comment [Automate d (test code = 87493-6) messag e] The system which generated this result transmit brook reference range : /HPF. The reference range was not used to interpret this result as normal/abnormal . Hyaline Casts, UA 5 See_Comment [Automate d (test code = 42150-5) messag e] The system which generated this result transmit brook reference range : /LPF. The reference range was not used to interpret this result as normal/abnormal . Crystals, Urine (test Few None Seen A code = 60465-7) Yeast (test code = Rare 35861-6) Specimen Source (test code = 2795) SUMEET (test code = SUMEET) Regulator Tester ID - [auto]Regulator Tester ID - tech Lab Interpretation Abnormal (test code = 45471-4) [facility] [id number] 00:52:51 Test Item Value Reference Range Interpretation [...] 1585) Rare SOURCE(BEAKER) (test code = 2795) Regulator Tester ID - [auto]Regulator Tester ID - techTisjhoan [id number] 16:58:06 Test Item Value Reference Range Interpretation Comments Case Report (test code = Surgical Pathology 104) Report Case: [id number] Authorizing Provider: Jamel Pittman MD Collected: 07/09/2022 10:28 AM Ordering Location: [address] Received: 07/10/2022 08:03 AM Service Pathologist: Kerry Cooper MD Specimen: Lung, Right DIAGNOSIS (test code = v4agxLTzSDVyq1wgGQDdg 3220) GFuZzEwMzNcZnRuYmpcdW MxIHtccnRmMVxlcGljOTY hQxdtyhRsMSUrqTSnU5Ma fbrjHWtvWV0jGS8nsWdzv MKfwOPoCNRfQoKeg4pve8 21bZAwm2rfOPPNhmxorHd 4aIafG93ml1D8UetxJ25g pHEzLSY7XLFnVPAygPShE ARwMOT1WIUepVHvH6eeZF CuPM2eqkhiQOssDJklEZO zpRT6OMBfxRBnP6IgTFWk RCvbTVAizxi3DdOdFj3tx GVyeTcyMFxwYXJkXHBsYW dwOKQeYmXcLX1jTDXVVvu gUklHSFQsIENUIEdVSURF RCBORUVETEUgQklPUFNZO olfHIOdAW3dDT6HXBGWIZ BOZUItD5UMFHQZUAgXWCV FDZfjLLESU5VvNKVGFGRO LZyZEW1GMYtzCN7IMxfDT iPXAWIIWeWBHx3PSPSigJ KcyWffhsBnKOulx8UyIUv mARWxOC7djRpyRDFlSY3m UKGmA0aklW4kkoc3HwKhA ZDrNyN2JHFxfdX9Ajh7HB OxWIswz5bar6FcLVHsCRn 0tFvvKeVgAQBsp8kanxWy ZmNoYXJzZXQwIEFyaWFsO 245h0vvj5tzuxSzwKD1IF WhXQB0JYnexoJzaeI5HNw adKNzEkQ3RSetpuRgJIpj hxQkigDzIjj7ZCHkU032C RL4lLbuf3akRFT1PFOyUW NsZfVzGo2neANzR183IVE uWHNORWQpdNi1MNZyqiGk grLlbLIZn706Y849j0qfF JQpvcDasDlIlthrm3joP6 19XHBhcGVydzEyMjQwXHB nzHWcoET7JAOgDN0pobhz UAylYUmtPIRzxgU0WTYyy LZlH4QaPUPuXL3hdaswQJ B5PTjxLNVbDUW6WxHaGVM nq6Yxoud1SuFhbc1nwy90 MJT6v6SfuLlcZUL5XOD8R vCjSg5ytYKsBNIgHU6yDu CheEUqJHIpaf77cWatPJy yGKK8BDCxkdMei3Sgw0pz UfSkgaLsY0rhC6HzGATnP OHaVPFfNlFeloHgq6Dnv0 DfvKHvjEt7p5kdRJSlEQD yvBuxy0rpRHC2CVAnsZNp C0owyU1oCIAlJA5uyjadj 7knGGhlGXfnDFXqrSM5ry P6WSYyyKAzG0QbzJ5uABX jKOujMNXgiht9MwUjRe3j dGVyeTcyMFxzYmtwYWdlX HBnbmNvbnRccGduZGVjXH BsYWluXHBsYWluXGYwXGZ zMjRccWxcbGFuZzEwMzNc aGljaFxmMVxkYmNoXGYxX XvcA1ggYnKrPcOwGtn1RP NegNVqJSTeErp1RPOlcGD wVKNZvTxqrP2pLHPobYbo kD8otEU1CVDstpOqwNANc Z4oULJKqH6kIuC3ZHFmIr g1EGQ3ZkBwbPWysF9= COMMENT (test code = r9jtbFYlONZxpPA9AhJgN 3359) IIom5bxt5QjtVOzlDJgGU aqgZDhivPjlh61gLQ9qH5 7DX6cSYSmGrV0YHNgnbZ7 Ody1HYFyHNAwcBBwN528u 1fmu7gwwjPhjJK2oNqrND XwefkzRgB3KAbvCIJmddu mSGr4SQahLBSfdUY0EGRi rNLsI6XjRVFnVL8odps7K EN1EGibMJJqYgI7MAJoyX PeNPValOtpSQsix341ZNI 8HqEqDWUqnnWezOiiyI3n ZnMyMCBQZXIgRXBpYywgc VZ7bHUnkVK6WKVrPAqlX4 6rb3OjDNnimCqlsBn5XCT nB2WvwBCsNJfqFYL4dB2c ZDgkyYzzFE9fgchpamPqX WVyYZQ8l8jiWSHtUcUhy4 0dr47aoqUwGxHUeOX7k4e xQ8awNFkgjAvvqRznWAB5 cG7mFGujguXdi52dlJudO WwoCnNiOS70iSZ1BOSqS9 jauyP1hOIrFLJuiIAiuw8 cNT9hOMBbzJ2qZX06WF2c G6Ced9ixIlAKqY2bxfIlO RilwrPgzTFxxqYkl6LmnT c7ICF4aROoDD3NBPArKDx uA0ChGKUhowAbrvApLLUr duSnl3m1kJFQXaYeNS0vB EGDHg7dYbDFUDOnTXbxRF MvGNhkJU83BX5wIV18gT0 ujiOlJZ2mSULrxjazo5He i24gZCbqGNPdKS8vj5i5n P16jWNnhpFqjJVyiMwuhG EsIHdoaWNoIGlzIGZhdm9 eJRPzyY8wFuVqsgWmV7Gk omHeFS13VXReaGxlBNXnN ZCmy6VgpT7ur3t0TZVbTH BizQ13jg6ayo1xwZveWOD 8gGUwxwLlHZPwEKLaTf60 UOIraEYnax6jfKEcBLJdt ylnUEGnKMDKEuPWeb1cS3 21LVEpvdJ0znRwWVCevk0 = CPT Code(s) (test code = b5mdqZNvPXEpvRL1YaGcA 3357) TZzb9bis6UmyGJjwSFhCT jvpVRbudBjwz30bPO9fO7 0LO6cZBDzExP2NUNykwO0 Rlx0ZIJdAKRoiCHjK521w 8usf3bjciPceRC0gZfsAQ GmcifyXoT7KXesYACvrib wNKo6JDozIQCbpPB7UTSz xBMdZ7OiKKSzCE9geqm5R GJ1NDyjQMDfAaY6PFDjqI OpTZEldUuyUCizo419FJO 5NaYiBWJepqWkzKinfF4p GnByZYH7SMXyKLlnEDMqI TlmOQXzmVHeEOb9LsUmLG NccGFyfQ== CLINICAL HISTORY (test b9ylgMUoFDTnrHK7RlNgR code = 3356) OXyv4ngh4LvmQUhdRKfQF zcbGHvnxNfmd98fGB3gV8 4RH6sXMOvPuZ5ERAxcuH1 Ufi1UJYxBNErxQYgO144q 7gyz5cesbJxbQO8oXefLW PtcurtGdQ9PQxpTOOltyz tNPb8DQgmHMGfvQH3HNWq xRAcA7XhOINtCC9vcia0H TC1RTlrLSYvJkO3AEWslM TtKVKrrKlbSNebx931TIB 4AoCbDCAurnEalAommC3t MvRiCOSnJdP1Yt7lRK44T HIdOI9hSOZgKMpcOG7ypd FzPF17xN9gIKuwmEgkYDg 6DT8faJDeLOS5cV5jifLx jDOcYMNru8Boe4ItPWOsj bFsyL9zXSZ7NxLOcGlcUR TBXKUiRHCkdAtcGLSjr9D ca0a1xBAiiMRvrM1yGMfe J2TeD3prn24rIMSuKJU0o 2iaBFIrXtZ3oP7stqAzg1 6ol75jpcNzFbueOBF0 GROSS DESCRIPTION (test n6mjoPXlAIAtvRAZVIHgQ code = [id number]) 5qbtrUvJOQzrPPlL7Lrjl gcAFkoVQ5bJI7ylTefdKC geEGqBG6TCNSaTgKjEBEb cGVydzEyMjQwXHBhcGVya EQ8CHTiHV5rjrtgQDuaBE jlYKSjmgZ6YYPrkYXiZ3O rFFGkAF5nzjlzFQC0JZnq eF6qhuIYWwqfPk9mySRdv HtcZjFcZmNoYXJzZXQwXG RenGekHHDlQSj8dS4KQtk lT47xv5H1Dve2NFDtEHFj J7BtKP9lCORntCNbR01ZH ernXZQ0IHPNPstiMPZuCE 1Hk8zuOLJgoPDrTUJ6LNx nuNFuEMWwPDJuRXn0YHHg CEtmfNAvMC9hmTtuNkaly Okpv1SkwQKvXSftYGUlIJ SbJQirBTYpAK0NEfFcWOP oTZO9BRHeZQr9VDm5UO9N YsZfOOMfCBu1OKR4WXVcB Lx4XZkfKI9ZRMC7CDb4Ev T0QvM1GKU7AZNnWIZwLuE cXGYgQXJpYWwgXFxmbCBc SX9eeVhnzOLahjCXYpWOm L1cSDBCfRkbkN2fvGBhBD 5OZHGgjENYDVF7ON8zWSF NClxsdHJwYXJcbGluMFxy qT0hXX4JKXk3goWvWSGfO NzrddYuUVUuU0GeueVvST krAIPady1meIgbJSsqVsX kWSAhf9g0yNC2cBJqaMG9 fWQktBzdEjYuMW1siJCtC H0kBNmjGYgohtFuc1JlJN 78dSXppkGnbaUzKQB4IfX eDKojZZUloV1gGSReaVhb iXOdSEFtCC66qKPrcQqgE DwwXGaat3vroNAev01cdB O2zIGcmQOmL32tNXXxcvC zJ4vaNmBlLvHvHE9oKGJf UOdoLJdtful0bKOuoTHtu ZZ7ZFYspT1fxB68bfFfek AYYV4IBs4blWLqUE8HPFS ljxKJWuIaQDnqGKNfT1Mc uZ3cOA7NMlokBTUcYYFTU 2EtH51mlVBvFA7MHWJidi ANClxjZjBcZnMyMiANClx wbGFpblxlcGljTmVzdERv ZjKqoMgqwG99XSDrjCZkT IE7NR6eOIZvfmjwNRUnUH QnPSN3OTeogZ00sLKdELS oOGMwhZXvkE4HPKMcCUP1 QGspiG38aMOjSJ7ZMIQqX QW2GKWiiQHiBHM6TF2rdB 0KfQ== INTRAOPERATIVE s3zsmUJdTVKjyDA0AtHcL CONSULTATION (test code TTeq6fcx8PihDHzoOXeXP = [id number]) hwrPOcllMyzo44tCJ9gK8 9OV9zLLNaJhI8HMXjspY9 Mho8YHXhWEZljVLtW619x 6ima7kpreDmrJM6hPzxVG JzrodcNrF8DJknXHGufzn nXXi3AGwxGTEncLT5YERv kTMiR2PaVPCnCB3hcro6P NG1OGukFAEgKhO7UUKbaH HaNYTymZzlREflo266TKI 7DeVzPKZfzwG0KDzmGTDc B4UmR9IkFWwsIWA9YPPdJ SBcXHQgMSBcXGZsIFxcbm R9s3hfVORpnJHjQAS9RCn caWQgNTEwMDIgXFxkYiBP SlLaEvD3OhQgYLt1YxD1A Xr2TBZSKpVgMzBuTxM9BH b1ABLuHEl5BMe1VQoIKrB 2SFV8BHD8JCdcIHMfBZKp FCk8IPXvIIgcrCFnQIKiU EAuGTejNUxkL15xnTwixN 4oObXtMSHASmYWrB1jZEY ZbBvtjV9zzYRxPSDuCkAk CBEVUjElWY12DqavIRZfT CAgLSBBREVRVUFURVxwYX JkDPSpURZAT4DEVCtRPSM QW7YvZJTIBCeGRZ2VXBRR EZoOPJyaLQz2SSSBOTFwD R7tYg8iBKQpSUTVMXz8JZ AgsWAnQFA4ZE1pyCgtOQB fU6PxP8GsvlZ2YWXkxh7= MICROSCOPIC DESCRIPTION m6kmtOOlZMApjBS9PpKuF (test code = 3371) CTwy3bxf8NkpAVjvTYkOI qzhGCeyiNfea77lQV3kW3 8JK3uPHNnTyG7EGEbvzJ1 Ofr8LZCoAFChzHFlK436d 4scn8kshdHrnTL6dKzjYT GaxmnlSqT3HHizZXHlkvu gVSq6FThrWHNfzWL7GVKz oNPuE3VgDUHtGA5ztts9M AO5FAgnSFGtZiL3GMMfvF TzMURbzZnbTVfdn978HYC 9NmDjRONpvcDbvDzajX0b LwCzOCHDEEBdt1DtJRBwG HBhclxwYXJkXHBhcn0= SPECIAL STUDIES (test l0wnuZYpBVZafBQ6VfSiM code = 3376) HLqe6xib5LveYOreMQzNW abbLEoqoUxgt26sYP5tO1 5BY5uJLKvSsJ1IXYpsrY7 Vnd0NUDtAKMxaOPaJ590O WFzQYQddTyqyul7pB13IK WzaN0zjFMvUKfimbDdMZb oemNtsfYmSin5NQU0nTuv QLMlvzqnZiQ5MOpfTFGar ahtHDa3GZoiGNZztNO5CJ BcdQEuN0FaFZUqYF0csbq 4CJY1OQesZEWnSjF9DLGo zUCjIYJduIftLPrzd599G WE8DrOrGWThasOrhEhdgZ 5cZjFcZnMyMlxjZjEgVGh gTXacrJEmqPDwcSY2fS4s UV8uMXNchHFdF9RqCWMlg jLqbIShNQV4hWJusFRoMR 5bCHksqNKcz1cid3GjE4w rpDakvBX2GA0nMMKoIXDe OYwsw1RtvF2fXgiuGDFot EAbHHXpcqTwg1nfL0slLH PyOGI8IV1uzvBkHqBzDR3 zvS17x9Qub57lv37lxE7i xKEoutEkB24usVOjyZMnl 4VcCRMvceJjaAF2SCBoNJ jmtxtld4u4sUM2mOEjsFR pqNW2cTTbsNOsZNOPhYSm TFUum074cj0yLPBwjBJgv uLwpZ1hGPbfwasfrWYnYN 8tTPXxWJIgOFGgAD44skP bIE0fzLSgq5knprQprDMc n7CmnMY5YULbfXQxsafgP t4gRY47MEObBKrpwT7ivR GxmtHpAR8nMV6cX6H8mTC iKHVgavFlu4vjNDrjHL1l YXZhaWxhYmxlIGFyZSBld fBboHX1CAQrnVNdGAOfrJ YiJBkhlHZqw8ler9SqQ3p vwVxqnMY7LQNoJ9cgeRJs lXU8TQR3uP4rAYtrbaMlQ IIqq8CqAVWwPPBiEbN7lT 8bNMS3QfBMlAkbWFC8NoD 8EDjjRKKgEL5fPJtnYAsg I1AxkRDdXIBOBDDmq0goA 4zfSDXpr9BvkE3xfTL6qO IaLUDkgLV4YSLmUWX0XAr vcGVkIGFuZCBpdHMgcGVy Bu3mcHMsX2CcM3ahfjTti YJbtZG5qPAgIWpyowGqCS X3HYGxjP0jVT2eSNYhqLV bGZ2oeIKeJICsICVyENOr OACxh6JjHRKfiq75RHPcC xodwFmgAVOeWb1dOw8wKT FzgyDjURX1QnNUHX0butx aaMKalAipvm8nNMqsRKIX EKKbQSImGRP8ZOIyzF6xI OG9cLR2CUE2T8srT5lxRZ GmicXfPN6xXLAkcXLifbE bYRywYC4fmJJcQMQlp1Mi bnjlOXCiELB4KBM8BLqfY TJxNDTsGv0uCGOmnO4zJ3 SuNKL9bmXhf1YbMtYLhZU hdN67lCUbhz96WLQvBWPw V8SaSGQwNMBvSKblmlRfn BwkMWBlz15seFSyuwKjn7 HocdCbUACoU9ttDFMquLS fpYGrz3GrhQ7cyIYxcxFo XUC2rDUsFSRioA6xKQBpy ZobFOFgaQ0qZ0GiYKncXi 7vSIRluvqdHR1wdt13GL7 jyeGnBI3lykOnHZ35gbSr JzKjHHk2PFhCFFeIZQq7B SBhcyBxdWFsaWZpZWQgdG 5gpPWzKe6fxPMmyWlmJUQ lwSNySFxzsXocN4rubtbi SUjgdHGlw3RriO8fqLA2K SQ8gJ3nBylkNVV3 [facility] [id number] 16:58:06 Test Item Value Reference Range Interpretation Comments Case Report (test code = Surgical Pathology 104) Report Case: [id number] Authorizing Provider: Jamel Pittman MD Collected: 07/09/2022 10:28 AM Ordering Location: [address] Received: 07/10/2022 08:03 AM Service Pathologist: Kerry Cooper MD Specimen: Lung, Right DIAGNOSIS (test code = p0ihmVKcRODyq1knDQQfj 3220) GFuZzEwMzNcZnRuYmpcdW MxIHtccnRmMVxlcGljOTY sMmadehEdZTQheFAiS4Ti bgrgJUpkPM2yNW5gkAjvx JTpwBRkWRKpJcZpq8ewd4 55nGPfj5edIIPKpottzBh 7bJirF44lb7H6LyznE84e kILcRZH5BUSuBLDglPMeV XTdNTD1HNRlmLUhZ9aiDW DjEP8shzqxJGqkFVfwSCO etMO8MZSccHHgL1FxUETi KEctSOEkjwh1QjHcBx3hw GVyeTcyMFxwYXJkXHBsYW voMNHmOjMeXL1hTWJCBso gUklHSFQsIENUIEdVSURF RCBORUVETEUgQklPUFNZO luyWKJeZA9fAJ2CLLHWCS RQXFTjN8LUFTSITCmUPIJ IMCeaUCEXU3MvGRLBNGMJ BElLIB1ZXZpfLU8PSxeEM tUZIYAPMxHQZs9CDWAqoT WcoJxidqYxXRjbn8FmKHg nASTwNK7nhEfqQFGvVH7m IKTzK7pqxC9duua7VrOdF AUhCkV5UWGuhlF5Vko0TA YmHYhin6qpm6WqKCGkHBm 0uPerRvRsMKLkd9wagzIo ZmNoYXJzZXQwIEFyaWFsO 805m4fcr6hldbNcbMC8VK YiTGI9MFbackLzbrT4IJd bbOCiVhQ6CRngfpUpWImp vzCsjoNeHmt0KGNyA067T JY3mMboa2xfUSD2IHEpQN BbByKeKe6nmAPyA798AZI sPTDTGGXaxSz1EGUuofVh mgXrmPGOw392L218y7cjT GAxzyBkiVeLselyy5ppC3 19XHBhcGVydzEyMjQwXHB yiVHspDV3VYAzBY4kgdgu NYsgLKjbQPShduK6TCIvh EOsZ6FyCYKlOC4wybnbXY T3HPrwLSMnHAU0JeAyDOT cc4Unsmu2HgZetd9heb30 JIQ8f3PwsEvbXDZ6EQO8S hHxUe2zmMUwXWQuYN2tUh QdtDOsTUTtxg44oSafSTr nZJB5JWRzbjEgh9Rqb4jy JaYdkiBnF0vbC0QlMFTbL SJsLXBuIiTludKvs1Kab8 EgmYWasXb3e5qsZOZyCZW siYhjn0jdLDE8NMWdzYWn P7cllJ6pDSWbXB3cjtvjt 0ftCClvOGdhLFOitHY1tu X5CRWzfRBeF5ZfaO3bYAN rJKatYMMnrkg7YjOmEr2g dGVyeTcyMFxzYmtwYWdlX HBnbmNvbnRccGduZGVjXH BsYWluXHBsYWluXGYwXGZ zMjRccWxcbGFuZzEwMzNc aGljaFxmMVxkYmNoXGYxX AgoP3jdSqXsCuBhJql4TZ VhwNNjNVCnCqa7HGKxfGH nQKUBjQidfQ8dOIBvtAfp bS7cnYX7SIWgbzAolDDWb I4wLMWQsM4eEmE6APNxVp e1ERU4AyAjbVPqjA3= COMMENT (test code = h2cgzIIbHGFymDF7QuAzU 3359) IKlj9uwh6QgqWKxhVXcMO ttoQDsixAswh26eLP6eA4 6GE7nPHZuLcA0TJKzqkV1 Irw8MIWuQLZptNGwT790q 7mio9unoxXlxIE0wMnlKU GmxjcmWoS4UJptHNIahpr qABp9IUuoVNLzpSM1IYQb zDEvZ8WjRXOyHD7lllk8L HA0SZjaIPMgTaP1YCXttG ZbWFChmRtfOApzv433VWD 5JvWzPVUoecEpeEvlgR2d ZnMyMCBQZXIgRXBpYywgc NU6jDAcsUP1UPKfSUhjM1 5bc2AdNXioqSbjsVt7NUX aR6IvgHUnITljHTU5eH0k YOnjfLwdYI1jfktftwAdI PArVVB5x4lwUIAmHvOns4 2at56gduKrGfQErKU0s8r iK1neNPrbkZrbwAjhELS6 kD3gRZnnugEyx83sjXrmB IjqTpUyYT60vBH2FARgZ6 qtmfR2tLUdULChlUTzfn6 qJW3eQQNghI6bZI88DX4j K4Dwa9odYjPGlG4mddNdO EyfkqQczGXimkWww7AdvD n8GTY6fLHtCB3CRIEsLQn lC6JtMWTeqiTdlgLoUDDc qiTvn2a7vPVQGpMrPZ0xN WMGLz0sQuKZPQCaTCyuOI WgUYgjIV84ZU2kKU66hF3 ryjFmDT9iHHHpmjvzj2Ag h96mPFvkJGEdXG5wz6y2l J01yLVxscZxxREmkQxzwM EsIHdoaWNoIGlzIGZhdm9 yXNScpF4wSeKljaPwK0Au kzAyFY25ZEZnsXdjQMUfL UBlp0DbxF7mb2z7GIAjNH XcsA31cg1pfs9bqDqtFFT 9nEQtkuSkHHTnRTPmIu62 YANmzPHhpy6sdKFpMJPum lmkZMPbUGLVRfQLkh2rV9 47RLZdrnP1uzVnVFZyod7 = CPT Code(s) (test code = h3dfpUVnATVdoWH0VjSgL 3357) VUnd4djh4XdsXLweXVkOA ulgXTdeuHybb13wEX6oM5 6ZI6jCZYwMlX5BNSgqeD5 Fzk4ZNIpWYHmeCRoA037j 6zhr7mcrrFhqAR5dWusKF HzsqmkDiG0GMbfDBCkbln lJLf8WVfoUPEkkQQ8HRXn cNNyY5VuAMFiXO8zuto8R MS2ZMvlZQEyDlR4QVNleH PmNQEfzLwmLIvjm429YOW 5TjWrFILsteWalNcuqS3x JlOjVGS7LCAeRAxbPSKrQ FvtKBVncPQuZKv1KiUyVY NccGFyfQ== CLINICAL HISTORY (test x9dyeCXkYHJuiOD4WyGzE code = 3356) ZPyd9hrq1MetSRdgEAmZT nibPKiqgAilz84fVG1lP8 7YC3dFKTsIzS7KAPhtcZ5 Pry8XWEdUXWuiGKiF183y 2uaw1qofdZkhIA8dXolCH AwlwukYvC5RDykHJNjvsj sWJo3LHmbFMLbqOJ6LTSi cVVjE0QaOBQxAW0vady6P FP3GYzsLRCuNoA7UHSlaJ IzJTZwxDekGMjlt704YWK 7QeOaYBVigqSxdWoraI9c EqGvLZLoJmK1Ob2fWL13O WFqEH9gIBGyDAclUG2zhf ZcBC69gC1mHEhgvUflQCq 3NT1psUMqHQU5tA7fyxNj jBOxRFAxr9Szz7YkDCAux hBevL6hEOV1BtLGgBsgSF KTFEDcNCAepSvtYIRku9O tx1m9rTHcwFSwtU8uKQts Y3GgG2nos20kNTRgZMY3w 9ccSQHyBnR9nR0zlmGej3 5dd71hmdKdItriNGM7 GROSS DESCRIPTION (test y6kphANnZMMlfOIFKOMiE code = [id number]) 8qfjkMcLBRijWQlT5Yhhj zxULfzMF1dEN9rzZvctCX duAKcHJ7UJZJuIbZnOHIy cGVydzEyMjQwXHBhcGVya HY2LFBcCB6rtgsbUAlmUA jkSBCczoD2GBUlyJAbZ4P dYSOaDS2wvrmmQCU2ODzm yM7nhoOFZazbBt0rbEXpl HtcZjFcZmNoYXJzZXQwXG YtqIgyXVYhOSg8pC5LCjn wX19yv1P1Fkr5LZKtLEVi G7UuZZ0lPONygWBuV15BZ ervRPG2HOYADvyoUPSqXB 2Ny7jjBLHbrJJeHMX0RJp qzCTsPGCdHXEgRDw1VPMf UEnbwXEaHU4tzWffGtwhy Jsbx3ZwpRDtQPiwBENoCF YaDSfuHOFdRP5GRaFgZGL kFTP7MDKeSEg0LOb8DT8S ZbNbMDLpKPs7MTY5DUSdM Bd9PAbhCN6EYPB2SRa5Bf I9HvK5SHL4OPElWKGcZsP cXGYgQXJpYWwgXFxmbCBc UX6xrUgjbZYxjlXEAsGKv M4lHZXPaYovqV1pnEXiUA 3EQYLvwRSDDPG1FQ0dCVN NClxsdHJwYXJcbGluMFxy sG8zST4QRKd4lqKdGJPcN ZgrrwSyXBDhF0BijdXxKG pxUWVdna6ovQimWItmXyJ mWVAba0q6yKO4yGKmpNS4 pFDjkMmlKqZjIM4pjMYqU M9lNLdnWWlmxqAlr6QjVV 75pJUxzlQkheBkJMN1CcQ lWDnfZILcwN5zFPSnsJif oCUyCGBeXT98rUUvoJfsK PdkFRxvs5lcyVXbe98vuL N9fFFybXMeR42qBAGepwG hU5ryHsLzAbHiUD0yTEUq YOhyQVkutsa7pBCxzYGcm KN8LWQxdK8jrW55uvMwit DKYK7XXe3hcVEkVY1GHFR bbrJPCsPvBKiiESQzV6Ha vL7qPT1JQfbuMAAeXLZUB 0NiN10gtRYaBG1QLPRcic ANClxjZjBcZnMyMiANClx wbGFpblxlcGljTmVzdERv AgXtqMbiwD93TAKyfXEsW LA9SO8pNDNtjanuLVQlKP SoAEM1KVijfO23rSIcDZA xMEHxqPIobW6NMLWdIYR0 RMvvyY66kUDmRN5NKWQdF OG0KHWvbTSzSZT5BU1weB 0KfQ== INTRAOPERATIVE m2iofOAcUILprPP0EdLcY CONSULTATION (test code YAem0ifv9XoeYVfyWQoMO = [id number]) ikeKZmyuUvxy28tBD1pP5 6BD3kQYBbAdY5WWYpsuN1 Rck3BPZhQDLfeGNcQ156u 7mtz0dkaoOswKK1mBbuML PiwbejYsP3RXwkEOWvxkg oQUk5HPcjCJJpfRP2HJAv dVJsX9GcRHNvBB8bway1D KF0WAarYXWdViQ1SWAeoF JiMVExyEqpFRtrs560MIF 2YqOlYVLjzjM5DRlwHWWb B3GxL9LjYJffTMY4VWEvK SBcXHQgMSBcXGZsIFxcbm D5a6nnOCQsjMAoQZT7IVu caWQgNTEwMDIgXFxkYiBP LiInOaL8GvSbVHb5DhA7W Xw1CEFVQrKoOuOcFbP1TM s0WYEcHHj7VFa4JOfLPkP 1RJK4LNJ7GWyoCYMfMPBu IPj1IWHsFCeucJFcCJNwC UUeGJpkYPlkH23nsEjphZ 8gRnYyNGGQKjYZrR0hJPY EdPrpeI0haJQePZNeSiAn WJUFZvGmZG02LhcjDUEjN CAgLSBBREVRVUFURVxwYX DtDUNvSAKJO7QBTFrCHOI YK6RyKDKOKJqWLH6JCNMC OMtCFAgeATy9CXBRTMIlA J2bJt1nCTPjEMPREHc3YO AmvHLpLFU9LQ7ohKfqZDE nY9TpP5QzsqS8XUSjve4= MICROSCOPIC DESCRIPTION n0qvmDNrHXYatKL9ZtKeH (test code = 3371) QUxy4qwf3ClaLAsmGRzBI vsaRDnlhMdfl06iGU2cC9 3FA7tDYHwUqK4VIOieeD8 Asw4UVUuUCMppXDuP662d 5tre9ihxpBzzPK6wEdlKI LfhvlrTcZ3KXpyTPGjgpe gEMf0MHroXEMkoIH1BJCi yIDyG5KxGIGkTI2sjne6V VL9IWrhZDHeDvU1DINqhA IeCBNjlNqnMMzym018VER 3WzXrTLGiniLyuShfzM7t TzBxILRXDQZyy2OlKUEpB HBhclxwYXJkXHBhcn0= SPECIAL STUDIES (test f6lecRYzMWMycFP5YaKwE code = 3376) LVof5zox3FyxYVfxDEjOG blvOQmpdYqum10lJU6tT3 9EH4kWSFsLdE5FEYaknJ8 Kas5KRQmFFHhvLExP519L UHuWYBuiGtjhlh1zP89CZ QwfE8ctBJuOHpuazSqCOw ucjOiefXnTyg3QOQ3fQkd JPEolczaJmH3EBhjKVKau lpsAWn8BTovXYUdeVG3VT DniGJmT2QuPFOkYD7hvlc 8EUN6UKumDWJpGeY4KXMu gXXdMSWzoBrrXXwot608O PU1UeHvNNHfbyDsyMiauI 5cZjFcZnMyMlxjZjEgVGh cJHybtMBexVUnuLB0hR6s UZ5zRXKngBIuP3WmRYSrw cYneFWaLJU5qXRpiCNvRA 0dYQoblJEgm4bda5NsW1f gdYevnNR9JM5fUZIpRBHn UOcks7BuwD7kYzhmWCIrm IPoOUEclzMdg5kwW0nlIJ ZnEMV6UN0woeChZxAhNE1 hwG69b8Hri28kf25szX1p rNFhljJnC15gcINtvIKuy 5ZnCZJvhxQxbSU1MWQhRI naoiuns8b7jQJ2gQPjvNA poLG2uTQlgLDqCZYHdOQk ZRFuz008ox3iKGDpzSJjp sNrhD0nFWuzwaulxTUaGP 3kDVIsWGKrLCTlWY69ioH xWO6weRKzf0mowlRihWJa g3XhwMX1QOZbrAQvwhsaU e1dMT59FBKgRCowkG3erI QzbnUyDY9eIT5eL3D2eGQ yGKUkoyRdv5ryMFxiBU4z YXZhaWxhYmxlIGFyZSBld cNnrNC8LWUkoFRlHZMsqI NlVSvntWZfu9erw0WwO7c ucPkluJA7ZZZaI3epgFNq eTE2GVA0gE1vEUddpqMbY PDln2OrSFThJEPnSxW0oW 1mLXT6NcZFkWtaLZU8UmC 1JZyeIKPkCX7wDTrjLZwk J3CtsQHpEEDJAJMew0keH 6quLJPkx9XxpY6guLW1lD VoIWRzrIV6WFAzRPT6NCs vcGVkIGFuZCBpdHMgcGVy Uv2fyZUnC0YoQ8mwljKgk KGmwZL8qGGwEHzmdgBvEH O5BVAukN8rZP8nMXKtbDB tJA2jdIGbQVGfRCAkNVDy YEMxd8QtDPQzsv14SUIiL tegbFzqNQMjZv7gRp8eMI ZqrqInVMJ2FdUKBX0ldas wkEVqtMsekh0zNGybAOGF ZMHkAWZgGPR4EPXenE6dS IT9kAU1BYG9V9irI9ugVB CutjLrRU9aEZIusPGzloE yQTzsTA3azRAqDKEkq0Vz jwzvGIHcPZJ7VJT8QYodU IWdDREjSp4bEHKaqG4iX3 NwETJ4ubBre5OwGtYYvSH jnR72jBJwfn66FUQzSQTm D7UhPYSqELKlSRptgzPsc KkeDUJuw55fiGTdweMbn5 IrltLhCNVyX0azFAHmqZF pzPGfx7GffE1buGJsbiOu EOM7xDRnNPZjyE2jOXEsd ZouCAJahO6nJ0CgNHlhHh 2yNOZgfijxFT0yzz14ZK6 lcbMsDD5epwScXS51mkNx RwQeOFu2ZCeVCOaSXZv8G SBhcyBxdWFsaWZpZWQgdG 7vvTWsXq9vxLGbbVsvFAZ dpQWoDVgoeXleA1ztrdnn UPrdrMWus2XwxK3iyJZ3O UK7iT2oEyhdZAO9 [facility] [id number] 16:58:06 Test Item Value Reference Range Interpretation Comments Case Report (test code = Surgical Pathology 104) Report Case: [id number] Authorizing Provider: Jamel Pittman MD Collected: 07/09/2022 10:28 AM Ordering Location: [address] Received: 07/10/2022 08:03 AM Service Pathologist: Kerry Cooper MD Specimen: Lung, Right DIAGNOSIS (test code = c1bypZDtQKYbz7wfYRMpe 3220) GFuZzEwMzNcZnRuYmpcdW MxIHtccnRmMVxlcGljOTY pSnilzxNgFSJajQViZ1Rq qrvjYEjxXG4bOY3nuRrzr FDzaCDyEMTyOeIxl8tdz9 38pTPeh5bhFCYDggvngUa 0uFelA38fv6I8BhdwJ40y oZLsHTJ6AIGbPHKnjNRpY EZhKLZ3DHTosTZlP9pwVS SxMV4dyfeaRBibAEnpHAN yrIH4NXFymHNeI6WyEQQc OWvqHFRekpq6YaJyFt1bz GVyeTcyMFxwYXJkXHBsYW spIIMkNeCvYL1hITKFNsy gUklHSFQsIENUIEdVSURF RCBORUVETEUgQklPUFNZO aazRJLxCB9cRB7SKUVCKG ZPQTDkM2LEVHIIJMgKIJK BIRnkXYHAM7PyULZUKJWY JVtHFP2SHEdvOM9DWzoBV dEZXJNNDrFEUy6GOMRpbE XbbOpjxjOxNYqyz0KyBXu lYUUeUF6gcMwwYFUvCG5j DMTrR2ymaF3rilt5EmBeV RDdNiU6ZRBqlnZ8Guz9BA JkAEqvj3zrd4TaRAUnJYt 2hKmsRsAfYWRco3tlngEc ZmNoYXJzZXQwIEFyaWFsO 638i4eds7gjrzHopRN3JH WlJSM3SOwslpYsihT4NRp uwFVlJfJ0BTjlbdWfXDos iyCihgTeTra5DEJqZ131N RH2dIiuk8fpVIL7FPTsAY KvIiTnOn4bkKLbP194XAE sEIZJWKCwaKm9KOJcixAt jsPovMCLa273R399v1gxB XKrlvHkaAaPtzfsn8pdJ6 19XHBhcGVydzEyMjQwXHB lgLPsfPM4BHShRG2behhh EZjwEQvnRMGxslQ9CXYmf IIlC8UwAFMkMX8ipeeiOG J8KTchMQBkISQ2FmXgZTE dp0Sizwf3SlCcor0pfw28 YBD2g9XmxLmfRXM2YAQ5M wQvQy2ieHWeGKAjPW0dPk NfeRNtKZLfzk77iTtjNRh wJHL0OYWvwiNvl1Ikp0ln TsUiirWkI3esH4FsNZJpE IBsNTLeGjBdabTrd8Qnh2 GapYZqdBb7d2mgQEDkXMV igDlme4sjVHF8NRZplLEj S5zklB1fZKItKR0sgkesh 4jcYLzoAKktYJZfeBG3hb Y7ULVwjMVgZ0QqoH1fSRK tZQefURIeivo9AhGyDy5q dGVyeTcyMFxzYmtwYWdlX HBnbmNvbnRccGduZGVjXH BsYWluXHBsYWluXGYwXGZ zMjRccWxcbGFuZzEwMzNc aGljaFxmMVxkYmNoXGYxX TkiD3qcFiSxVjTjMfs5MJ CeyJLlCMDcShr9ENDqrDV bBJHZrSmrwD2gPJFhpSjv uB8fsAO7IBIaqmXjdRYVg N5rDBJZcH8tSbR3QUTiLh s6VIW0PgAhmUQvtU1= COMMENT (test code = h1xwgKStXFMmaSV1InWhB 7992) AIyw8yae7LwuTFlsOEnTV wdtCIhkiWpao32jWM7mR9 4UC9cDILtXpV4IOVyyxG4 Sna3QQPaAEDgwLYxI220y 4ebb0quydChcVU5yFmjRK MigwhnRcO9VMxtXQXnwrx mKQg1RUiqXSUgcAM1LPKy iKFpQ1FkLOKuTU4nsks0L FD4AYksFLVdVtZ3HQJgfC HiSUWvmAvoHItcq582EEI 2WyJqDRHasyTurYsjeZ8q ZnMyMCBQZXIgRXBpYywgc XX1eXWaoIK3ZTRdNIygX1 7mj9FcLMqybHntaQa5TVN oM3QguXPpVLauASQ8kA5y OFqpgWcrQB0etokzbcDvN YVlVQJ4q3ueYXLpToFrk5 5pk97nsoPuNfQHhYK3d8l qQ6ilJJiygNvmlOftOGS5 vU7yAZdlugXbo38suVmzR XftRaHmZV84lKL9KEGmP1 xiwkR3uTJwRVIhgVRkdc9 xIM3wLKYykV2dIO69YK1v S0Yew0xuMdLLjU8upaZxU SlgdtEqdIJixePch1PrnN l3BXH4wWGbQS8RSHQdOVl vW2IuZZUlctLbpiTbWRMq omVph4r9bELHCsUlWX5gE ZBRNb4nSeAXWOFbOKqyWI LnVDitKC39NK4nXI06mZ8 tjaHyBG9rWQAeyuqss4Dp p99cNNhlIDJqPI5ih8v8c W78zIIqyoCbaCEajNhazT EsIHdoaWNoIGlzIGZhdm9 qOMOsdD2aZsUebaLcX6Aa qpQkUY86PMOlyNfoPHFkB XDeq4NizW6mz3f9FACxTC JgoV10tk6xtp7gjLtjXHN 0tDZvouUzBIFmKWXuKu45 KURcwKOdku5fhNGfVNUfz pztWKLbTGKVTcAGad0nO4 50ATLvcpY4ziJqRLWwxk5 = CPT Code(s) (test code = v6bjzMQhWUQyaBS4WqKcG 3357) YBti4ufc7ViiYHodHAvXW vrnYZktoQdng88zJI4vV8 5MY6tBGYlKhI0UGUwpfC8 Tcc8HYItZMRbhBBlN790n 0ixz6jfmvOngEK5mWgbFO AgotmdToB9TCqsKJZukja qBDg3GDhxZOXjsLV1QBTo xHGpK0QzDQCaMI5tzpy9G BV5LBsjFFBjVqJ1PMAiiB NdCCNyoMrdNFzhd458TPZ 1InYkSIMcxvDueBfznK1y JrJtJBI7KTPxIBibONSqF ZcsSBIllWFsHMj1UzWoGG NccGFyfQ== CLINICAL HISTORY (test d8xejHNvOXVbeRS8QwOyH code = 3356) EOvd2cvg1RfxOUfdSVhJE vzwGXklxBwft09cEY3kE4 1EF1xFNJqAzJ7RFTukcW9 Llz0AJMcHKMhvQFeK755r 4vnc1zmztHssXI9uEibZC NzblogGkN0ZUowCYVtemx cIJy4IGcqEMEqsRJ5WNIk eGXfQ3CqQMAnLB1xzwh0I XG8KBaeSFZvYxR6NEBocJ NcNBDjoPpzNVnxy183RAM 4FuBtYCNozdNjeOhepV1i FhHxQMAqJoS4My5kWQ25X SEcEP1jSINmKWcqWS9jgv SeKJ23aC4kIIajxRerHWl 9NX2puTDuLFE0wY7oziVg nITuSYPoo3Ean5RkBWCso tBeoI1gWLH3KxFLyCuuYX FRFFSqXQXvzBpxBNGwv1Z hj8s8uKYobJQpiA3zERga W9LlG2czv36sPZCaMRP8h 2lyGQInEwV7lG6ukuOmz9 0pm41wjdEyQaotFJN2 GROSS DESCRIPTION (test r7tsjPZmSNKxcAMAIEUkS code = [id number]) 7wyjsDqIESmaLLyB4Hdja wuOGvsUO7nKE3lhIaqqDY ngCCyJX1XHRXbLiImGHZh cGVydzEyMjQwXHBhcGVya UD3EFHuPN6vcsubVQrwRE uqPUGpvoL5CRRjyTUrA6C mJEXxQU6bskyyDLZ8PWyy cN4lzdSCOkuvLc5dpRGub HtcZjFcZmNoYXJzZXQwXG AkmJibAJHkZIh8fB7QImw pX86ae9I1Oay6FTTgPQLu E6HiHW1mSLNzsJNmQ77GM jgwHKW7PZVTZepzUROmZL 6Ex4gtQCKupDIfCHW5RBe rbJReGRHoVUCyXBv2OCNv VKjmhIEvGS9rfXbuFycyf Ppxd2HkkQAhIQsmPSQdUP TxZCttCCNiJT3GKyNeRUK vFDQ9MCOwPUt8RAt6VX6I OyDzALMgOLz0SII2VBAcA Oc6XVpgVS3GERU4TZt1Nt N7HlR1WUC1HDHcGOBcDxU cXGYgQXJpYWwgXFxmbCBc KT1cuLnprXJxxeDOPlHRr V9tQTZPeJtquE9xhTXiIF 6KFRDazSBBEVQ2OV9uMAI NClxsdHJwYXJcbGluMFxy aJ8eJT6EUQj9wjSqYAKnD VagxwRfVYDsH1CmyvBnXY bcPQGtqw1gsCtkVWvnCvZ gJYZtp8c0rZK2rCOgfMZ7 wFHkqVvuTgZtCY8qmFXpU D3sFDplQGmkbyVcv1VcOO 65lGIgjaWwkhSzDLP5PcU jVSndTUUykL7zVHOqjCgw lLCiPFIhBF01fWVhiZgdK DdtIXlqh2ooiULca78jbY J4jOYcvVIcP14tVJMlnkS pP4yyDlOhLuWoTH5aNXKw NNxbTQbpqir3mPTlnDOqu QO3PNYarR5smU19kxQzzp JWAP3ZHt0xgZWzKR7UOBH cxsISZdTfJLxjSHAbC9Zb tZ4wXH6ILthdNDXzMGFNU 4BiP93ggGQiCX1NZVThle ANClxjZjBcZnMyMiANClx wbGFpblxlcGljTmVzdERv JfSlbDgswX08FMKreVZyU FL9DQ8qQJVjchikRTYrQE ZuFBZ1RPplkZ30qARrTYX jZCXqdYHbmW5KBMKmEER5 NWhbxJ95rLTyVM6NUTAqK IA1YAUviVZrBDF7GR6ngA 0KfQ== INTRAOPERATIVE a1uenMTzJEOixWA2DiFfA CONSULTATION (test code HXcw8hpu6McrUJabXBxMA = [id number]) rorRLsjjIyos29hWM2dE5 5SN8fDFAsDsQ4PTXoxqB6 Mdm9FCQeJDPupEKfV599o 5ejz9vknuNfmKF1kRccCB IprjeoBnP1LBlrVVCpwgn cRRv4CCjgOOWbeRQ9DKJi eNDkQ5PgTWXxFJ0jtcw1C IR2CFcuMSFfThR4KGXteL WxUFZumFxeXTvou229DHX 3FrJgCNMudlC2UJnaJHJa D5ZpU9QzYQliVXZ0GFJoS SBcXHQgMSBcXGZsIFxcbm H4y2znDROqhWSoDDD0SQt caWQgNTEwMDIgXFxkYiBP EuUxPmZ2ZqNxXRf6YgU8A Uz0ICOOPjZoJyJoHjZ3QW s5JFBsBJx6LWq4SYgBTbP 5ROB6EDF8QSgmWPPdIVJk SGy8QHIiKAzebUNrAYXuK RWvEOkaFIonJ20voJljuO 5pPjTfNBDSIbQKlX4vZOA AwXbjyE7nxVPzQBEjEnSq FMKGIxElSL36ClbdDHXeC CAgLSBBREVRVUFURVxwYX BzPVKhHBPJM3HKCUvBEAJ CY1WrMFQXVVuFBZ9RKYWN XTaIOFpxAGn1MISWRNFtZ Q9hDm0sKXTbFWRKTGw3CG ZekNTuRCA5IC9gkTwiFOD kH4DeT2GlezR4BXYthb5= MICROSCOPIC DESCRIPTION i9jbjPJqXHMhzRE6HoEfC (test code = 3371) GPyw1gci3KinMFegLWfKN lcvYWbhtNhke10fFO8bX8 8YO1mOBDfQqK6JHDqvjR7 Kfi7ZMWhNCQvhMQsH827i 5jfc4lavwCwjLE5sAdkYD ImeujqWxC5OIkuOULpcde aLWt9LCjfSJJynAR5STRu kHEtX3CuRUOgPR4ulba8G ZJ8EVmwIKNyCaI5XMTsuP FxSKWtaApsMYwes662LKS 8XrMwAAXrszNhzBrpbN0q KvTmRFVYJAHud1BjQYQrG HBhclxwYXJkXHBhcn0= SPECIAL STUDIES (test d6xuzQEuLBMdzNP4JtRuQ code = 3376) CHii5ykn4SwfKNquMIuVH buwTEokuCnqj65pJD3fG5 6EU4sDCStHnX0NNSoriJ5 Oby1CVFdWAWnoSAuQ173T HZcABLpfCgryvj7pY35KP ZhsD3lpBFlVGbgndXyXKn ejvQvjoBbOms4YGX5zMty IYNolzjgDzX4PDltJNYnd hblXWy9NJbmZNVezWR1HE JxsLYxF6ZsNWEnWS9jtap 9TFA9NXqeVZGoBoR6XWJv jYYsKVVebOccOIjpb538N JC1ZxMaPVMdujAbaHrowT 5cZjFcZnMyMlxjZjEgVGh uBHdeeSRhiVEemGG8pF8j RD4mPKNzqLNiL2HnHDEad aGmyIWyLWA0kBKouYOpHN 9qRBhiqYMkp3zfs2PbR4t joHebbBW1CA5lSCTyHQCx HFisj1UdtY8mCphuWTXfj QAtFTPfexHco6wlO2keQT DvXRG4LV5snyIwRoOxSX1 hoI98y3Hgs02vx38vqP2y hUVavoNnR48yzMAokPWgs 6XjEYRcabFdnCS5APYzOO jnyveyg3h5mIS7sKBljZB upLO8yNKwfKMjOIOPrQTo UVFjh124wn5kLJJklEPgk ePonL4cEVwzjztpfOPsAI 0yWDAgCBPeMFZkBJ78hiI cDA1imPNja8wpkwIarUYm w0YncGA4NTRdrPSzqeffN s5eKK36BFSuANhybX4ojZ YxmcThEA1bJW4cA8Y0gFV zVXJdgrNhw0uzGAhfIG0f YXZhaWxhYmxlIGFyZSBld gEhhIQ6TFLnhUSbYUTzcX GzKQwuqFDri8gim7GdY7j jkUrylUD9GTYwC7zqwPHj qFA4BSA2zH3fAAubpmBcG LLvf1TyCTMaKQTrIbR8wO 6mGEN8XtUOpBoxDGH0MuV 6SWymHLUsQB3zRBcrLNsw R3DexMJtSGQAGFMil2haS 1hdTDKun1NpaI0lePD2tX QtGFZsoBY9LLRjVGP0XMj vcGVkIGFuZCBpdHMgcGVy Zi9yyRUjP2HqR6xzsyKoz GDcoRO3kCSfHWotvfDxWB Y0BICtdL4uAS0wHFLguPU lKG7wlQAkOFWiHEAcYXWf RBQqv0AyLQZdks48MHRdQ zkylXyjZHYjHw3pZy5eXH SfeyCuLII2FqXZCM5ktbu mrORyzYmdrn8rCPpeJZGZ MFZwQNGfQEP5ACXmqZ0qT AA4hPT4FEG9M2rvP6eaMD CjrpKfCV1wMEUsxJAnteI sJYnbUS1hvJLnMLExn1Mh emvxXXUpJOA6EUE8PJlaW IAqEXAwGf9qCMDxuI8fY8 DwYVW1awTwx4EvSfYRxUP kpV09nLZmcf04XEWrVUWq B9NmMRBeTCTaDUvdvtUjn QqgECPdr44reFSwawKdd2 HbdzWzYIVrH9ktQSVgzJE otVOdw2GcaR5ojGBfywAh HJH5tUKnMFVcbP4vFGIgf BrnVRKtnN1nN1SjEHoeZr 8cTEStcntaTO6wbl82ZE0 zxtRqWX3mloHeBQ15xdMw RuJuCSu6BRwKKQqGLBj4Y SBhcyBxdWFsaWZpZWQgdG 7neBPsWv9exSAwjKnwXUJ soWJrMBlodBbhG2dsexqo JGfcxMKbe8CqkU1ccEE9C BP3dB8iGtfiXMD3 [id number] 16:58:06 Test Item Value Reference Range Interpretation Comments Case Report (test code = Surgical Pathology 104) Report Case: [id number] Authorizing Provider: Jamel Pittman MD Collected: 07/09/2022 10:28 AM Ordering Location: [address] Received: 07/10/2022 08:03 AM Service Pathologist: Kerry Cooper MD Specimen: Lung, Right DIAGNOSIS (test code = [id number] 3220) GFuZzEwMzNcZnRuYmpcdW MxIHtccnRmMVxlcGljOTY nWgvbqmXgZIZjrNYxJ7Bn nzcfVIdoLM3mRU3dmCybj TAxdNTmRZAiGvQig0ebx0 87eVWtc6zhOZQZqznikMa 0hUdrG72wx1L7BewcJ87d uYMrJCU6WTAcQJSmbLVhO ORvRTU9GGQxsFXfK7cbUP ImFW0ucggkPSgwZBhdMTP yvHN4MOPumHXcJ3SoLUOb SZrmZLJixws4XjGeRb5hk GVyeTcyMFxwYXJkXHBsYW vdWCZaEjScKF9cMCXTAsb gUklHSFQsIENUIEdVSURF RCBORUVETEUgQklPUFNZO rbeFWFmDQ7cBX3XJZXDJX DDNHRqL4ZPPCQCIUzMKSZ PVDbcVIEHE4ZxKGAPPXQQ JRnUIB4TPMqhSK2MIwoPB dWHSOYWWfVWTf7LVVQulL JrrKpqxrIjEKrqn5TgLKn tRFSoMT6kfBstDUDfGT9m WXOsO8odaO1annx3HlNyT THhFeP0UOBdthS9Tfd5TR UwHWwck0dfx1JtEWTtYWu 7sMubWtWnZGIvi2xelyUb ZmNoYXJzZXQwIEFyaWFsO 684g0mza0eniqKozLJ7FJ LqLUB5WCsnerFgthY9LXw xmEOfEhT1BTvkbhHbIRap tyPpylVzWrt8MKGlD222W ZI3pCste6nuUTL1YSDcEY ChZrNxYp8fuVKiJ697HPM qXGBTUHFkoXy3OHKrhwIt yqVxsDTHa213B690g2eeZ PUzbzTsoDbSrxemz3luW1 19XHBhcGVydzEyMjQwXHB pgVZmuGO4VZLjRF0xbzbi BXokPNlzCEYlfqS7BXGda WSeY2MiQFTjCS3vldgmXC C1YGhlCLPtYGS6IcOpGCU ag3Zhbvx4FvCpah0dmh94 WXC6y6NrdPxrTQU2VXQ3W tOxRa7vcWWeHVFaJR7iSj CsqOHwXUDcmz27sZukFXe zJCN5XYCeixJmp4Xnj3bc VrKjsbOdX1yzX8GwAVZiU QKsZRZbFsIdtpBmw1Eaz5 BuoDGjdGv1r6nfVLQiVZP njAgvv1qoURZ3ZVKluMNv W7zcoW8vVLIaWH9gluuqi 9ytPUvvCUsjJGNdyTT4ev W4CTVilTYeJ1WvfE8yWRO fLNaaFOIxbsv3IfIbTm5c dGVyeTcyMFxzYmtwYWdlX HBnbmNvbnRccGduZGVjXH BsYWluXHBsYWluXGYwXGZ zMjRccWxcbGFuZzEwMzNc aGljaFxmMVxkYmNoXGYxX KshA7joJbHiDoTrBor9OV VxkGIjAYYnTqc0EEIdcZE mJPJUxIfduR3mTRSzwOvx hH7poPM6FHBkdgOqdPJEw R3bIPNEiA1pDpE1VZMdDe o9XTF1ImXniOWnlP6= COMMENT (test code = s7jpdMXdJVXhxAV3TwVuB 3359) PQfm0hqn6XxcTFvySZqAU gukGYfpjJodl40ePQ2aZ7 0SR8iGBVdBeV2VVGmeqG2 Nlb1UUEtBQKquPSfJ860m 9znd0xxjgAxoTZ2gLxjPW PimhxoCiZ8WMjdUYHohxg sSBs1BGlxSJKreLO5TCXq hGNjE1EtKNGsXO6vnwt8L LE2WBdkFJOtVuT0PEFfnB MeRZPhvPutCMuwu243LUL 0ZeRoKQCpuqHwiMyndL9h ZnMyMCBQZXIgRXBpYywgc UF1dYMszMC4BSQpZNquN1 2bo5DxNCpnlQjfoGk9BZC rU2RnoKReCKxjGUZ3eK9i LYplyLwvCQ6iulknziKzX NNeUGL2r8vcGQKlRqAoi1 0iv32zioVvOlWFbPX0l7e fS9kmBEuawOhfsSgqTJL4 cK5eDDbgmeOrp42paIvgN ZvqObWtBU18dHK6LESgH2 ecesU4kTHpFMFrfTNnak1 cDU0aVQQjkB7sCH21WK6o Q1Rdt6xaOgSYrP7vuiKjK QocnvJgxXCpwrNhh5UycV t7KAQ7yKLiWQ3OKPExUFm sZ5LoKOGcseWwykOcWFUv hqPgw2p8bMOPDaVfKD6rZ XVGCq3xGmENOTHqBNgxZX MxGJwrYU88IL7cNM43mJ5 mbtYlNN8yHBHfrqvoy2Wk j10qSLnjKKSfUS9vz4k5t F92mLCihnIjcJOszJlwmE EsIHdoaWNoIGlzIGZhdm9 oPEFttJ5rCyZahwOcI2Px zwAyWK48PXKsjAmkRSJcZ QPwb0UhuR7sy2o4ISOuQB KsjX76bz8xvj1guXsvNPM 9qDZpkuWoCSEaDHHmYr26 IOHpdLQflr2ayOKiTDHpa dwzXJJrBYYVUiRXol9cB8 08CJUswbF2tyJzQEUogu7 = CPT Code(s) (test code = j2nxyNUxCRAtvFZ4KvJaN 3357) PMnc1gpr0WcqCGxiIHcFI ctwAYplwJdve85bGX2cT4 7LF4oPZXmWiM2EINazpP8 Ree1YZXiQGZxpGDeK214c 3mpp9ddusLocTA4yBgdOH GwregnAeI4BQqsEMPevqp rAWq7BByiUJNouBA5NUWs zZYsC0SwUBReCU4yoex2H HK9FBpeVVIvYhL2DENzpD WyXHNptHidUAfgv718JHU 4HcRyPIUysdVkdOildA5e UxEpIHM4MIBlDCltPJUnJ VdvHSZovGEtOSv2XeHuLY NccGFyfQ== CLINICAL HISTORY (test j5wihZUsQAGgeWK6UbJbD code = 3356) YHgu2uxt0QimQIxcIHhQC lgkGIlreWjwa04lOY9iP1 2YQ2tOEWkQwI9TZLryaV1 Uyc1VDBfWDUnlTLcI906z 9ash8ytecHoiXJ3rHxiRF ZwigohOjN5CNsxFMItkxq oGBb3WPcoZGHeaIW8GAJu tJFpX7ZfZMBfPT5vzjc4K OK9WMqeYUOaNvM9LXWlrL SxADCufBuoMJdjk168ZYO 9BgGbPMSgvbSvyQevqK3p OtHmUWBqQzD5Cn8sNH21O IEwBQ9qRLUuYFhbDB4ysr ShPY79rO0zJCiqyEtfDSq 9FF8qeQGmEEW8wF0zvlMu iUWsVHPgw1Mbq2AdYUDlq lNliF9fKMK5HgQUeBieXW QGQQQhAQNcpUskUOFko7F vb8z0tSIovKOkvT4uTVsb E9MhD2yzd87eOZKrBBU7z 4wmEKEvJqY5oQ0csbWpp0 9li58oyvEfXrjbAAH6 GROSS DESCRIPTION (test c7ntfESzOSSbuSFGBBHsL code = 5963418770) 9dttwFfFYByyNNpW1Xzha auFSqkGB3sJZ0lmUjodFH doBZjKK6INYSgSqDnRYPj cGVydzEyMjQwXHBhcGVya WU5EQIaXA4dbftkFEtrJA ssHMVeycN2TTFwgZCtF4Y jMDWnKH5jjaijTFZ8BObb rD4foiJTGgogZs0bfFRls HtcZjFcZmNoYXJzZXQwXG VssElhZERuCLz8kX8LZyn jG66yg5R9Bqf8OLSaKYBe E2LmXY4kTUZlhQIxJ36FX jffBQG2UYUEQynjXLWdGC 7Eu5fpWZGmfJVtIKA1HTr zaBDeVCDtWXBcZKi5HIOb YLpxmQIdUU0rkZzkFtaud Rhyt7ZbnNZxJJawKQXdPJ VhWWrgDYRdVZ9RRrTjSOP fLEQ2FHHyECp7XIn0KQ9I UhVvPYFsLPv7EOW8RMXaF Uo9HCdpTM2YANC8YAv6Gn E7SuD8BTC2KKSiAYAoRhW cXGYgQXJpYWwgXFxmbCBc KU2xrTdtzZYgdsCXTwLCl U0cSICLxBvzxF0waRDaDH 1PZQDunSINLTR2DW4rJNT NClxsdHJwYXJcbGluMFxy hA6oYC2QZSg3wmFuNOOmQ IahaeLhYGQqJ2YbdrZyDL mvMMSvay0gzWmmCJgoVoV vUICnk9x4hSY2bAElvSJ3 uTYitXftSbYsPS9raQUaM U0sILyhLHpducJsq3HdUD 06gYHuysXasmMuNXA8WwW dUMcgCYRxlX9cKXHlkVfh zEUyNROtWT02vUDfgUkrC PngDBqnw8lcyNKti39nzM R6rGAlfHTkC75gNEVuekP jL9orQrTpWfWiUZ6dJJYp PIgbJBlgkrg5wFLitCYjk QU2NIPenM0bwF75ovNfqh ADDI7HKn4xuPYeXY9HTOI fwvIKRyMvHIdfQNToU5Fw vP7iZY8CKjiiXSPjUPZCD 3UmU22zeYTcUE9GPJMtpo ANClxjZjBcZnMyMiANClx wbGFpblxlcGljTmVzdERv CxVoxSknuA67ATJsyUCuH AB2XQ6jKCWwsrykTYAnNM CcSXA5VQrncK91jOVrSVR sWUYjvROjiH0YBUCsJSF5 VGameC63kFIlIF3IVCAjJ RC9XBIjfJGjHIB0SL4snE 0KfQ== INTRAOPERATIVE h2skoNEgVXYxjZP7EoKiM CONSULTATION (test code VNzp6lcm3YelAUchJBrPF = [id number]) mkwAKwlbJliq20qHT4jY4 7XK5iCGWlOwC3OWFckuY3 Mnv5MOKxSJWocBOuN767k 4qvd6cvvaPuyYY7mSeqPL FlxgpjIaX0IIsmJIDzpcw dCWr5HLwfAHQbzWX9KSGn qHUeJ7YwOPCtHI8llmi5L NG5RLjwFBNkKsE2AOMnlU ZnYUWscIltEQsqu693CQM 1UqVlOKUxhfU8KBojBHUg G6MqW5CiYXduAAC9GUJtV SBcXHQgMSBcXGZsIFxcbm P7z2sxEPChzUOgHKJ3WDk caWQgNTEwMDIgXFxkYiBP GuZpVbV9PwHwYTe4AhO2S Uw1AAEARpQwXiNiRuN2DU n1NXPoGDs0MWi2COxLGyY 0HXI3SKO7TQjzEPMyPFRs ZGm9COCvMTwwuGArETMvS FBzJZifEVrhB90ruWsuaK 8lKgFdONDMCnOVeW0bAIY CbKrhuK9mxFByANRsWrWn XEMGBaCmOT05XzboTOLpH CAgLSBBREVRVUFURVxwYX WhWYIrWWQGM4SDOYlYQAD TE3JlZOYTHWsVPF9BJAMD FSfBUTnmDRz3NTTKYURlC C4rJg6uOEXzMXVUVXn6YL BkpCQoFNT7VK3fpSzlWBR iQ0YwJ2HvfqH1CYLczh9= MICROSCOPIC DESCRIPTION u9xbuNBpXHJivUU4OxHoC (test code = 3371) YEds3pgh5KutYYvsCDaNV souYSooaYqqb22mNS0xM6 5JJ8hNCWnFmN2NYXvtuN1 Bdq2SBRsXDOswFVwH626t 5zjn5jixwGmuEL5rZkyME BdxihhGgU6RMzqOXVmyan mITx6MXqtPVRrgGX9IGLf iNUeU3UgVVPcAX5uiev9L TU6NVrhFBYxNfS9CJYrmD RlRSMaaXqfDFbom794WYQ 6XyUnLHGuxtUosVrdaR9p WaHkMHYFBFYxf2GbCBNeF HBhclxwYXJkXHBhcn0= SPECIAL STUDIES (test m5kjvLVaGUResMP1RcMqB code = 3376) WKyw0kuo8GrtNMwkTRyWT twgVKwuxLaqk39hSH0oM8 8MP3mTLHzMrI0ZTEvxcH6 Wdf2TQRoIGSezBQdL867V EFcWIMsiTxczvl6oI55XO AvpB4tsBZsHYmrpkNpCVp tvtJmamTjWqy2IMZ9mWtf YPImpvozGgP3KKsoITQkc cesWEw7BPzuRGHjcLK1IN YliSSlV0AbUXEkOA8ndxy 8KGN9ZMfgZJOpEkX9DYXs rFHuWNHhgKhqLNirz650G EI3KtTvHDKnbmTxzCjtkR 5cZjFcZnMyMlxjZjEgVGh rVHixbTMonXNzsNC3pU5o PF1pSCSywSDfS6JdUYLok pUvuRHnNZY6qMJamRDeEP 8sQHmwcEUsz4uyz9CeR4x qoXjcoDZ6SI5vHCQmUIDj QRows5CniJ7pLnjdTFGdy ZQtDPSaybDuw3bdY3neTV GsHFC2GO7nsnBdQeScXQ1 knU05z8Yhi31dn71jdE1u eJMxlmHyE21msYDxpMQcq 9TiZDMiyvSmsSF2VFDxTT oiwioqv0u8dRW7sNOocLG ouWO6oTWliZRcCLBSsOKu VOOix979bc9uVBJglQZhb hFvxZ6aVRlfbyvjuITjWC 3mKKSoJMCePPHnGT58reS vIK6ekXFqq6tnlfSxgMWq i3SktWA5NNAjtIIaidatP g5rOY95KTYnHDcaiO1woQ BfccNdEU3mGA2lF2A7zDX xBIVvtyZnc3glXLeiML4s YXZhaWxhYmxlIGFyZSBld lDwkEE1UWJwdOAjFPPweL HqZIkmzCByt2mte9XwJ3s mgLwubEB5GEOoC7tnnTPn nSI4MTH4qC7yAJnwpvOfB PGiq7JfDYEhBQKjHnM4jS 5rPBW1YqRXyVzyXGU6WtO 5VJdtNHMdRT4eQBteQIbp X1SesRUtUWKBIAGfh1edI 0phLWIpt3DqcL7jeNZ1gO HsVEMqcOZ0OTKoBIJ0FCf vcGVkIGFuZCBpdHMgcGVy Ys1bvXSgD9JvQ8wmrzBdt USkxEK8kLPjZRwmreTjNO A8QXIbnB3gIV4dILEirTK nOQ4riBKaHRMaJJRyCZYk VPVxa1SkOZCbhb08YZBsK kkioXenRPHlQn3oVj8xOV JglaIcXGI8OaNAJB8mqpf pcAYjgBxsoa9dCUrbLTOS JNIyLLYiWTT8PYKheI9sO ZP9pIG1JBJ5D4vwH6tmJJ IadtXeYN3jEVExwGPhrnA jVEjdMR5qoIIcEYCbg7Rh pquiJIVvFBD0QFC2XCisH GNqNSWhVj1yBGEpqM1jY1 YmPBR9stUij5WjDwOStYF zmK82mRPltr53NFZcMHMf G5BnQLIuKOKzTDmrkwXql OozWJSxr57umZIroyXgy9 YeahSeOQHvW4dxQMJscQE joURng3EtpI7bpRAvoqEj GJL3iHUkTAUfoT4oVZElr VwiTUAbtY9jI8NoMEpjYv 2hXLOzwqxjQB8nwm48EQ2 pawJtHM7oamWtFQ85jyLi CjLjUPk2PCjHVEsJVGb2U SBhcyBxdWFsaWZpZWQgdG 3icGLgFj7qzXQxzFiwRMS jaRDdNVvaqRgmI0wafjzm XPhnwUGof9RnjQ8wjYJ4L WO1yT4hHvaxFOO9 [facility] [id number] 16:58:06 Test Item Value Reference Range Interpretation Comments Case Report (test code = Surgical Pathology 104) Report Case: [id number] Authorizing Provider: Jamel Pittman MD Collected: 07/09/2022 10:28 AM Ordering Location: [address] Received: 07/10/2022 08:03 AM Service Pathologist: Kerry Cooper MD Specimen: Lung, Right DIAGNOSIS (test code = o6oylPNcOFIoz6qjZALuv 3220) GFuZzEwMzNcZnRuYmpcdW MxIHtccnRmMVxlcGljOTY nZufrfnYjJJFtaLDnK5Vb mkhvRRxjJZ2yYR0rvJamr CDwuZNvOMYpIwZzt3wtb3 96jGCoc0jnDSUAwkvbqUb 8bWcaR61vj7Y1JxuhO89s eNXoZND1MBWiWTZrwXDjS EHjCXK7MLHdmQYqZ5vrKS DwAX3bkhqnYNdlPJwtHSA hnHC0KRRabSDtJ6QcSXHl VUsgMCChcyt7LaDhBe6kr GVyeTcyMFxwYXJkXHBsYW mbZICkIgVqDV9aLFUJZph gUklHSFQsIENUIEdVSURF RCBORUVETEUgQklPUFNZO nmpHAInIA2hLH6EPEQXRI RIUBPxW0OBQEMHYBxWWNW EIOmsRICBU7KqHNAOVGYO ROiXSZ4YSMzxVO6USegXC kMESFQPJmPCNz0DCTVelP TlvCcygsFmJDium4FnMTd lRTRaLU7frJkuZSVrRR4m WYQlP2vmiA7cknl2FhVhM UTlHxC8ALWjtaU4Yqe8IH IxVKezb8mgw9GoPDHuXFr 5eLquIaHbPAMaf2huwrJj ZmNoYXJzZXQwIEFyaWFsO 686d4zsh9eeqmEqrZY6FU LdXOB9IMvxryWjokD1DNu qnFKdTqZ8WTtmobGlJGmc kjExozNjCvg5LPUmW341S QK6sDijm1apOEA4RJXqKX NyWyUzWk6ieOYoW848ASC wWBOCKHSywKt5QZByiqGv myXgfHZUq217U895g9sfD TQfydGlgFtCxaoss4kkV5 19XHBhcGVydzEyMjQwXHB azULbcFO4YGHeRI7iuwji RDflULxwVSAidkV1GIHkl VIlV9VjHILzUY1ntlpxHP I2GXnsEIWyCYF8VjYoQSH xd1Wjgkg8TiOfmu5yax97 GPG2h1KqtUckLUQ4LZX3V uHmUy4xtATcXZIuEF2qMs OcdLYxJNPbwk32lYboXEe iCVY9NNRmroAfm8Wua5vr FnQsaoYoX9hkE0JuSDNvP DVhLBWyWxXuuiQrb3Sfe5 BvyHKepCt1l7luWUJmWRA dnVmxu3haQAO9QWQqdDEf N6cjkT0xORPxUQ2oszelh 0xlLCvwTGlvLZKklZU8py N5NQGnfITcX9IsnR1yBZS nFLcpVIHjcfm6CwHuId5b dGVyeTcyMFxzYmtwYWdlX HBnbmNvbnRccGduZGVjXH BsYWluXHBsYWluXGYwXGZ zMjRccWxcbGFuZzEwMzNc aGljaFxmMVxkYmNoXGYxX MdtN7knGmKkDsHuLxx0BZ SbdQCfDDPoUph3WUCoqPK gQBXZuDoymD7wYWNkyRdo qQ9khMK3MERcwnVnvDBBm A1kWTQUmW6hDaT4WMQnUb u6FOR0GtBhlRTcoJ4= COMMENT (test code = y2gfqKMlNJXxeBJ8YpBbJ 3359) RTyp0pvg0OkzPUdfJVwOP ovnUQqkgGadx27aRP0yT3 6NJ1iZGHyFkG5MZHrefL8 Jss2WKEoEHQwmFUmH210j 3qfd0oueaRzaHX5uXeiUT AcemkhZeA9NTcwEQNgsuq bIEr8FFndFJJqfPB2DFAp yDPfU7WlYSKbIT9foql1H XN5YOdeJSRaYvL0NRKsyX PhQGZchXtvMKxmn990VPM 0FuDpCRFisvIorBwxxC2j ZnMyMCBQZXIgRXBpYywgc ZR2kWFhvSU3KWFrITmkP1 3vd1KxWIpbpEuxvPb5JYK sB5XumLLiKExkAZR2eS6z GAukfVlnHC8sajclzbZsV EUzMJO4y3pwPVRyAiKki6 3si65olpIpReKRgGI0q5c cE5rnRMfecMsaqCsuQOX2 zQ1wPHyjocNql19ywTfeL FpqQdGfVV47iTX1EBQfO0 mngxH3zRGlBWIisFTtor7 bNF5mWVYddW0oZY43DU1m J6Smx0vlGjVYgM4jkfMnW SpggmLloXYtfiIci4UffU t9JQI0mLUaYM6CNTEjGGg hO9KcYMOjfwEnztCnCFQp uiIcp2z0rIFTEbCySZ3pX KJVZd7hLzERTUGkQKlnQA VsSKmcMK28QF7tGG82dO9 vytOnWT5tLOKxyawsa6Dv g93fLPyeIUMdKV0xp0p3s G36rUEgrpGyeQPsaCwoaD EsIHdoaWNoIGlzIGZhdm9 wBOZxdG6pReLguyMuE3Hd igPwVJ15WUHnnHeqLRQoQ OKvi8CyhN9mg4m5UGTaWK RszJ15gl5hek4ueFgsEJL 9yUBzpxNzRQCeXYQrOq87 FXNodKZvkj2coUYjIACbu czyRHJzUMALJlGBjw1wH4 43FGOjlmZ6cbQaSWIrxl1 = CPT Code(s) (test code = d6odrWBaKYFqeLG5NjIuI 3357) RNqr6end8OlcYQfvXJbVR snwJTpjzFxyi14cUI1qT6 1QL7nAQAxVgR1QDTaigS5 Eah1RGMzZBScsFMrS570u 3qsp5lxvbLnuHH5xMhqYI CnbuetJpV0XMqrWXFykjw vLJp8MRwpGOKtxGJ4HBRx vONkF9BrIRQfYX1nabj9H RN0FYjaVCPfXxA1WGYpdT XqCCRkpAmaDLyzx917KME 6ZqAdIUZlkbIdxXcwrV1r RhJoXSI4INBvPGktLDWoP EafFZBvjTPvHFo1LeNtIO NccGFyfQ== CLINICAL HISTORY (test e3qwrMEkRBYekAA9YxOhP code = 3356) WLzw9xhl2UaiOPfcXXsEN qzfFKktaLfzd71kQT9pR3 9PO1uSEIhBhD2TNQchmE6 Ukn8NNXpZKQrsVDaN705q 9sxc2iopjCweFO5uGoyOE MvozuaXsQ3XLsjIQKtnat hFEg3IAxmKLUsqGR8RMSd rIRpA9IcZVLiGN1feqm2F MA6MOkoOTRsTbI4EABqiD IfGOKyxXaoDDcam572NRL 0UkOkZDHiveDasEtpuX8c SuKwZIWyOxQ7Bl0jKO79B ARfFK9sGDGvCZlnRK3nvj SpHT93xP2yYSnfbNuoIAl 1OU8ljONcQRK0xM5vmyYm nBYeSFWom5Yxo5WmHWCla cQrlR9mHAO9YbEJrXjoTG PKCHQbJJCjqUjuPIDey4X ey3t8oNZgiOJofB3iSBcl P1JrO8alf63eJHUvHXX9y 0wkPDPkMwZ2aP3afwRit6 5bj16bdaIpWphhXGU2 GROSS DESCRIPTION (test t9uacXMdQDEzyDLLYLZnP code = [id number]) 5ilfsTnLTSciHSkQ4Qmlg rwBZwgYA6tSL3bdUigoUV xkQKyUE2WTVHtMmZqQVDc cGVydzEyMjQwXHBhcGVya RL0MNEuZJ6ebmgxRFuvAZ qsGDFgdhQ2CEOleWLqG1H uXOZcPK7foktkMIZ4XWxz xS2mvuSLIpgtNy9oaHNkv HtcZjFcZmNoYXJzZXQwXG MvbFamWLTfPVp1fK0ZQbd oE00xv6I3Zhn5KYQcUAGr P0QdLS4rXRCptSBfX34JJ wujEWS4RZOYWqwbVWNgQU 9Jb2obFRStmQQzSGO6HGs crALpNJVdSZDfALm7EMEw TGdnaLIpRI5cgIejPcxmw Ffda4QwzSJrOMwjQAGjTR ExAAqqOXQiLM4SMdFxKUW nIZZ7WHUpWKf6XSu4OZ8Z JpWtCZBaSHt7QPA3NHGuA Lw6WOkqMO8VOIB5BXh8Sf Y6NoN9KEN5EBUeNVWeGcR cXGYgQXJpYWwgXFxmbCBc PE4qyEbveVJhnzRKXvUHp A0fYVFTkDuxbZ3yaCIqHA 4QYHBwlEYBKWC4GP8yOCP NClxsdHJwYXJcbGluMFxy cP1nMF1JYUh9ysYkCKLlF VucddKcYZLiU9DoedHoJG asUTYhmw4ciAszSFxnOkP yTSKuj7k1lYG0pADgyGA2 bSNvsZhnVsAiIY4reTFaJ D9aFNluLZoowkExq5TmSF 28tBDerqIsyeRiUZL5EgE gXLtiBUIhzO7pUZQgtZpx wDPdDSFkIU78jFXkyNwvL WwcUYgqa1ymaIMba68ppC N2jMUydNVrW37cIRZjygP mL6svQzKtGyNcFD1oXHVr TTkxEBkcuvd2oVWrfJQxe EZ0BDOljP3qhK51vcPuki TGVI0ZSb8pnTOnME4VREX naxMNHwKtUCqjZKRvO9Zy gA5hGI3EEnnlOCJnPNHCR 7YoG09djAPiVE3MMLEjdt ANClxjZjBcZnMyMiANClx wbGFpblxlcGljTmVzdERv IdLxsJzwaX50KAXdwYHcA OX4KT3nHIBxdvagUNZpNQ YjOYL8GGabbB13sMFpPMG kRGYdlJTkjE2NOJFpXRX2 UFvzuG33eVImXC7UBUEqD LV1WINxkLRoKCK8DA0zzL 0KfQ== INTRAOPERATIVE k7gzuMYzXDZlhHP6LoEqU CONSULTATION (test code RYdg2kib4OtpZVbdUBtVV = [id number]) swhOEnhmTdzr47iPW9cG8 7MR3pUGTaIfJ0TTFansA8 Ovx0ZXHnTWWdhHJtK951r 7rbc7zdpvPczPT4oTczKL RddmezWlT8SVzwPNVqydm sSQu1ZKxeEDWxpUF1QJOe pHBrE8OkQZYtRB0jupz1H UC6BLauSPDmHsQ6LPJbgQ NcKLBmgQglKYsbq549KXQ 5GtMvDQXmpuJ7TOzkWAIl A6OyC8YuBTykBZP3WDSnC SBcXHQgMSBcXGZsIFxcbm C6d9lpHGMpnNAiMAW2MGr caWQgNTEwMDIgXFxkYiBP HsMmOpD1WlWaHAj0VjT3Q Nk5UJTDImKcDbPtBgT4MM n0XTLgLVh1CUf4CYxRHiE 7QRJ2RTG5BNsfMXIoAMXs YAe2VKChDQxcaPQiVSKhF EJzJYafRCtjT40ksFskvG 7xIsQlWAEPIrYRwA3oVLV BgPfqfZ3azVOfBMCwHrEz YICRFiNxHX06KaxlTVDfE CAgLSBBREVRVUFURVxwYX EcSUUrYDASR0MZIGbFRMJ HP2TxNIBUEDnBHZ2TQRQD KLpTETswTXm0WOGKHGRgR R9qBr4sCKZmGKSBGTm5BM IrbNSwIDM2JB1coQagNTR bY4KfT6RujaM6CFUkhm8= MICROSCOPIC DESCRIPTION i3vsxRDnPUUoiGR3QaGyM (test code = 3371) TGhd9sbh2UemSHuqDWpES ykxVNsczKvbp47zKQ3iG4 5VP7rVEYqAuD0AUZykkF3 Jfu9DHGlQXWonYVgJ914c 4pez8vagpNcjIP7oNkcGA CyyaupCuE3NKztRRBqxga rRAu4MMokQLMfqJE1TAXw fNOnO7ZdXFHmXI1kgrq2O SZ6QSzeLMPyWpY7HUZzuK XyIZGppJzbOXuvt694HIE 2JhGnMNTyhkObzYjorF4v RcWxLUAHUOJir3JhCCInF HBhclxwYXJkXHBhcn0= SPECIAL STUDIES (test o6rkmITwSMVwjQV9WxCuC code = 3376) TVao0czy8EccPOmbYUxDY lhrKXtmwBoyp25mZW8nH4 9XT9aXBWzOfW1WGXprlB2 Tla9UXMjDRLnyWOtJ826F ITySXUshBnvqnj5bQ22TB TtrP7guWLaZKxzfxXwCLh xymDmufQgKye4KXC4rSqn ATMxxhbnCaG5RFlcPUIac tknHYb5NRykNJIywDC1AG RaqCWbV7QsPZWaZS1mayp 1LFX0FOaaBCLuYoI8ZRCx nJLnCIIxnFmqYNoav890F OG7YsSoEWTajwAfpNgvoL 5cZjFcZnMyMlxjZjEgVGh qZBcayFWjzRIynIC2sD5x AO4cCEWjlQBaW7QpDVDdy lMvvHSmFKT3vSCaoIEkWJ 5rVIhfsKVco5pya2MmP1a ljCiqiCJ9DQ3lPMJzJNTx BIaug4ZsqH1vFjkrAFPhm GQkSUWztnEfx4ciE4cfBH LkRRO4DU1hktDiDqQrEE3 eyF50t8Eqw91sk63bvK1p oEAovsVoE71qtRNooWWqe 3BwPSPdhcPdfPH0SJEwMW aicqwpv4p7cSB7kWGirME aoRB6vLFpcUCuOOFSrRGb WINol413wd0wPOLstKEqk bXagM2lPDvrpuofsVGhRS 7uPGNmJDFlLVPaPU84jxC gKL1mgSOex8riitIwkDRa z4YtlSL9EBYlaAPmmumxJ m0eTI31GPIiWYwrtH7msI LvnxQnFB8rJE2bE8O0pAX yRPVoztNvi8wsOUuuZT9r YXZhaWxhYmxlIGFyZSBld iFioWA9EMXynNFbHVLwqM PaFCdwlIOnb9axe6FsJ8g kxGudtQW3PCHzJ6ipmXVm qVO5IEU8kA5xMFfoewKaQ ZJdm7TiHNLpBLJnGtG6iA 3hYEH9SuBZdZaoUIE1JhA 0KTfoOHFtQU5yWLawOYxf T0TlhAFeFXXAVMRte9duC 2qaXHBqy9GmnF4wpAJ4gJ GaRVByvIV1KWYzAHW1MPc vcGVkIGFuZCBpdHMgcGVy Di3maNJwY4OpY3qwlaWty XShfHJ3rGQkFQnjtnYtNQ Q2VYVvdF2fNB2qQSStkCI jLZ2tpTRmKREiUZLzBTDv MPJav0MpIGWwrz35ZAZdP pbloDqpQAWgOe1cCx8eDD QohnLxLGM8BkMCGU7ygkg mjOSluPjduf1hRLvdXXOP DOZeTWGyKSF4NLUjeP0gS IB5sTS5BAA7B1qhE1qtPR NrueSwXS6qYHCrfCBtmsG lJXsxMW8aoMUiFTRjh4Ai muquFJAbSJA4NQM9PCxmN NVqJARlQd4yOQWozZ6cQ2 XtTFU1shPas8AcArGUgCA jnM62fSUffn62NUNhNBKb Z1UjTEGfXILfSVzzdbWtn YqwMMSvj27aiUDxlhPjm5 CakzXxVFNoH1tgGNKryZW vuLTep1SeiP8gjZKyheNj DNN5tTZcAXAlwQ4rUKJpe BgzDQIdoW6bE7LwRAvoLs 5jTZYmydxzUR7kja69FH8 izgToYH1qykPoYY87jtKw IaBcMFo7DCoFWPkPLQm3T SBhcyBxdWFsaWZpZWQgdG 4axZGgGs6xiJLkdKnoIAX uuHIyIOabcYecH9mdyfiu XCjmbBAuk8RhcI5dwVU4C FM6bO4fCkbuHFI8 [facility] [id number] 16:58:06Surgical Pathology Report Case: [id number] Authorizing Provider: Jamel Pittman MD Collected: 07/09/2022 10:28 AM Ordering Location: [address] Received: 07/10/2022 08:03 AM Service Pathologist: Kerry Cooper MD Specimen: Lung, Right A. LUNG, RIGHT, CT GUIDED NEEDLE BIOPSY: - METASTATIC GERM CELL CELL TUMOR, PREDOMINANTLY EMBRYONAL CARCINOMA Signing Pathologist Direct Phone Line: [phone] signed by Kerry Cooper MD on 07/11/2022 [...] immunoprofile supports the above diagnosis.IDC: Dr. Case lyons.[id number] y.o. 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 Lung, Right.Received in formalin labeled with the patient's name, medical record number and "lung, right" are multiple ny-white soft tissue cores ranging 0.1-0.3 cm in length submitted intoto in A1-A2.JUSTICE Perry PA ([facility])quality assurance nurse. Lung, Right.PASS# 1- 5: - ADEQUATE - [...] evaluated Immunohistochemistry technical testing was performed at [facility], Pathology Laboratory where it was developed and [...] testing.CT, CHEST WITH IV CONTRAST- PE TEST [id number] 07:21:00Unlisted Reason for Exam - Click Yes and Enter Reason Below->No[facility] : 1985 Sex: MFINAL REPORT [...] No thoracic aortic aneurysm or dissection. No pulmonary arterial filling defect. Patent central airways. No pleural effusion or pneumothorax. Extensive bilateral pulmonary metastases have progressed. Interval development of a dependent consolidation within the left lower lobe. No significant findings in the partially imaged abdomen. No aggressive osseous lesion. Impression: 1. No evidence of pulmonary embolus.2. Extensive bilateral pulmonary metastases have progressed from 06/28/2022. Mild progression of mediastinal and bilateral hilar lymphadenopathy.3. Interval development of a dependent consolidation within the left lower lobe. Clinical correlation required to exclude pneumonia. Signed: Matt Patel MDReport Verified Date/Time: 07/11/2022 07:21:37 LACTATE DEHYDROGENASE (LDH) 2022-07-11 06:53:39 Test Item Value Reference Range Interpretation Comments LACTATE DEHYDROGENASE (BEAKER) (test 1140 U/L 125-220 H code = 635) Regulator Tester ID - YARED [id number] 06:53:38 Test Item Value Reference Range Interpretation Comments PHOSPHORUS (BEAKER) (test code = 3.1 mg/dL 2.3-4.7 604) Regulator Tester ID - YARED GURIC [id number] 06:53:38 Test Item Value Reference Range Interpretation Comments URIC ACID (BEAKER) (test code = 6.3 mg/dL 2.6-7.2 773) Regulator Tester ID - YARED GHEPATIC FUNCTION [id number] 06:53:38 Test Item Value Reference Range Interpretation [...] (test code = 28 U/L 6-55 347) Regulator Tester ID - YARED GBASIC METABOLIC [id number] 06:53:37 Test Item Value Reference Range Interpretation [...] not appl icable for dialysis patien ts Regulator Tester ID - YARED GHEPATITIS B CORE ANTIBODY, [id number] 06:51:15 Test Item Value Reference Range Interpretation Comments HEPATITIS B CORE TOTAL ANTIBODY Nonreactive Nonreactive (BEAKER) (test code = 497) Regulator Tester ID - BSHEPATITIS C [id number] 06:51:14 Test Item Value Reference Range Interpretation Comments HEPATITIS C ANTIBODY (BEAKER) Nonreactive Nonreactive (test code = 367) Regulator Tester ID - BSHEPATITIS B SURFACE [id number] 06:51:09 Test Item Value Reference Range Interpretation Comments HEPATITIS B SURFACE ANTIBODY 246.7 mIU/mL <8.0 H (BEAKER) (test code = 647) Regulator Tester ID - BSHEPATITIS B SURFACE [id number] 06:51:08 Test Item Value Reference Range Interpretation Comments HEPATITIS B SURFACE ANTIGEN (2) Nonreactive Nonreactive (BEAKER) (test code = 2581) Specimen is considered negative for HBsAg.VANCOMYCIN LEVEL, [id number] 06:26:36 Test Item Value Reference Range Interpretation Comments VANCOMYCIN TROUGH (BEAKER) (test 12.8 ug/mL 10.0-20.0 code = 522) Regulator Tester ID - BSCBC W/PLT COUNT & AUTO [id number] 06:08:41 Test Item Value Reference Range Interpretation [...] (BEAKER) (test code = 2801) BASIC METABOLIC [id number] 06:19:54 Test Item Value Reference Range Interpretation [...] 358) GLUCOSE RANDOM 113 mg/dL 70-105 H (BEAKER) (test code = [...] not appl icable for dialysis patien ts Regulator Tester ID - BSCT, BIOPSY, [id number] 19:29:00Reason for exam:->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 Severe and extensive pulmonary metastases. Signed: [facility] Verified Date/Time: 07/09/2022 19:29:10 RAD, CHEST, 1 VIEW, NON [id number] 17:27:00Reason for exam:->s/p right lung biopsyShould this be performed at the bedside?->Yes [facility] : 1985 Sex: MFINAL REPORT RAD, CHEST, 1 VIEW, NON DEPT INDICATION: s/p right lung biopsy COMPARISON: Prior day's exam FINDINGS: Portable frontal view of the chest. IMPRESSION: Support Lines: Port-A-Cath tip overlies the SVC Lungs and pleura: Bilateral metastases are redemonstrated. No superimposed airspace disease or pneumonia. No significant pneumothorax. Heart and mediastinum: Normal contours. Additional findings: None. Signed: Gonzalez Del Real MDReport Verified Date/Time: 07/09/2022 17:27:04 RAD, CHEST, 1 VIEW, NON [id number] 16:59:00Reason for exam:->2nd cxr post lung biopsyShould this be performed at the bedside?->Yes [facility] : 1985 Sex: MFINAL REPORT RAD, CHEST, 1 VIEW, NON DEPT INDICATION: 2nd cxr post lung biopsy COMPARISON: Prior day's exam FINDINGS: Portable frontal view of the chest. IMPRESSION: Support Lines: Port-A-Cath tip overlies the SVC Lungs and pleura: Bilateral metastases are redemonstrated. No superimposed airspace disease or pneumonia. No significant pneumothorax. Heart and mediastinum: Normal contours. Additional findings: None. Signed: Gonzalez Del Realepmanasa Verified Date/Time: 07/09/2022 16:59:14 SARS-CoV2/RT-PCR (Asymptomatic ONLY) 2022-07-09 13:21:39 Test Item Value Reference Interpretation Comments Range SARS-COV2/RT-PCR Negative Negative The SARS-Co V-2 (test code = target nucleic 82958-5) acids are not detected in thi s [...] om SARS-CoV-2 in a nasopharyngeal swab [facility] s suspected of COVID-19 [...] revoked sooner. Fact Sheet for Healthcare Providers: https://www.[employer]/Documents/Xp ert%20Xpress%20SAR S%20CoV-2/Fact%20S heets/302-3802%20S ARS-COV-2%20HEALTH CARE%20PROVIDERS%2 0FACT%20SHEET.pdf Fact Sheet for Healthcare Patients: https://www.[employer]/Documents/Xp ert%20Xpress%20SAR S%20CoV-2/Fact%20S heets/302-3801%20S ARS-COV-2%20PATIEN T%20FACT%20SHEET.p df Lab Interpretation Normal (test code = 42889-3) [facility]2022-07-09 13:21:39 Test Item Value Reference Interpretation Comments Range SARS-COV2/RT-PCR Negative Negative The SARS-Co V-2 (test code = target nucleic 37969-9) acids are not detected in thi s [...] revoked sooner. Fact Sheet for Healthcare Providers: https://www.[employer]/Documents/Xp ert%20Xpress%20SAR S%20CoV-2/Fact%20S heets/302-3802%20S ARS-COV-2%20HEALTH CARE%20PROVIDERS%2 0FACT%20SHEET.pdf Fact Sheet for Healthcare Patients: https://www.[employer]/Documents/Xp ert%20Xpress%20SAR S%20CoV-2/Fact%20S heets/302-3801%20S ARS-COV-2%20PATIEN T%20FACT%20SHEET.p df Lab Interpretation Normal (test code = 75667-1) [facility])2022-07-09 13:21:39 Test Item Value Reference Range Interpretation Comments SARS-COV2/RT-PCR Negative Negative The SARS-Co V-2 target (test code = nucleic acids a re not 4121971) detected in thi s specimen. Negative result [...] revoked sooner. Fact Sheet for Healthcare Providers: https://www.AMENDIA m/Documents/Xpert%20Xpress%20SARS%20CoV-2/Fact%20Sheets/302-3802%50HFVU-DYP-3%20 HEALTHCARE%20PROVIDERS%20FACT%20SHEET.pdf Fact Sheet for Healthcare Patients: https://www.[employer]/Documents/Xpert%20Xp ress%20SARS%20CoV-2/Fact%20Sheets/302-3801%83RYDB-XNX-3%20PATIENT%20FACT%20SHEET .pdfBAP[facility] METABOLIC [id number] 04:41:10 Test Item Value Reference Range Interpretation [...] not appl icable for dialysis patien ts Regulator Tester ID - GIOVANNY BCBC (HEMOGRAM ONLY)2022-07-09 04:02:23 [...] = 413) Urinalysis w/Microscopic + Reflex to [id number] 15:11:47 Test Item Value Reference Range Interpretation Comments Color, UA (test code Yellow = 5778-6) Clarity, UA (test Clear code = 5767-9) Specific [place], UA 1.018 1.001-1.035 (test code = 5811-5) pH, UA (test code = 8.0 5.0-8.0 5803-2) Protein, UA (test 100 mg/dL Negative A code = 95801-2) Glucose, UA (test Negative Negative code = 365) Ketones, UA (test Negative Negative code = 2514-8) Bilirubin, UA (test Negative Negative code = 73674-1) Blood, UA (test code Moderate Negative A = 18072-6) Nitrite, UA (test Negative Negative code = 5802-4) Leukocytes, UA (test Negative Negative code = 5799-2) Urobilinogen, UA 0.2 0.2-1.0 (test code = 83219-7) RBC, UA (test code = 10 See_Comment [Autom ated 96540-3) message] The system which generated this result [...] 5 See_Comment [Automate d (test code = 25150-9) messag e] The system which generated this result transmit brook reference range : /HPF. The reference range was not used to interpret this result as normal/abnormal . Specimen Source (test code = 2795) SUMEET (test code = SUMEET) Regulator Tester ID - [auto] Lab Interpretation Abnormal (test code = 82565-2) [facility] [id number] 15:11:47 Test Item Value Reference Range Interpretation [...] = 516) SOURCE(BEAKER) (test code = 2795) Regulator Tester ID - [auto]BASIC METABOLIC [id number] 02:53:38 Test Item Value Reference Range Interpretation [...] not appl icable for dialysis patien ts Regulator Tester ID - PIAYA LCBC (HEMOGRAM ONLY)2022-07-08 02:35:29 [...] WBC 0-0 (BEAKER) (test code = 413) [id number] 02:33:56 Test Item Value Reference Range Interpretation [...] for patients with mechanical heart valves.BASIC METABOLIC [id number] 06:31:06 Test Item Value Reference Range Interpretation [...] not appl icable for dialysis patien ts Regulator Tester ID - MARCOCBC (HEMOGRAM ONLY)2022-07-07 06:21:12 Test [...] WBC 0-0 (BEAKER) (test code = 413) PT/[id number] 06:20:27 Test Item Value Reference Range Interpretation Comments PROTIME (BEAKER) (test 15.1 seconds 11.9-14.2 H code = 759) INR (BEAKER) (test 1.21 See_Comment [Automat ed code = 370) message] The [employer] stem which generated this result transmitted reference range : <=5.90. The reference range was not used to interpret this result as normal/abnormal . PARTIAL THROMBOPLASTIN 37.2 seconds 22.5-36.0 H TIME (VIBHA) (test code = 760) RECOMMENDED COUMADIN/WARFARIN INR THERAPY RANGESSTANDARD DOSE: 2.0 - 3.0 Includes: PROPHYLAXIS for venous thrombosis, systemic embolization; TREATMENT for venous thrombosis and/or pulmonary embolus.HIGH RISK: Target INR is 2.5-3.5 for patients with mechanical heart valves.MR, BRAIN, [id number] 16:00:00With anesthesia Unlisted Reason for Exam - Click Yes and Enter Reason Below->No [facility] 1985 Sex: [...] None. IMPRESSION: No enhancing intraparenchymal metastases. Signed: Gonzalez Del Real MDReport Verified Date/Time: 07/06/2022 16:00:17 POC-Glucose [id number] 09:27:22 Test Item Value Reference Range Interpretation Comments POC-Glucose Meter (test 116 mg/dL 70-110 H : TE STED AT [facility] code = 1538) [address] [facility], 770 30: Regulator Tester/Techni kain ID = [id number] for JANET MOORE Lab Interpretation (test Abnormal code = 70194-0) [facility] [id number] 09:27:22 Test Item Value Reference Range Interpretation Comments POC-Glucose Meter (test 116 mg/dL 70-110 H : TE STED AT [facility] code = 1538) [address] [facility], 770 30: Regulator Tester/Techni kain ID = [id number] for JANET MOORE Lab Interpretation (test Abnormal code = 56213-2) [facility]-GLUCOSE [id number] 09:27:22 Test Item Value Reference Range Interpretation Comments POC-GLUCOSE METER 116 mg/dL 70-110 H : TESTED A T [facility] [address] (BEAKER) (test code = [facility] Je [facility], 1538) [address]: Regulator Tester/Techni kain ID = [id number] for JANET ROSE BASIC METABOLIC [id number] 05:51:57 Test Item Value Reference Range Interpretation [...] not appl icable for dialysis patien ts Regulator Tester ID - MARCOPT/[id number] 05:27:33 Test Item Value Reference Range Interpretation [...] 0-0 (BEAKER) (test code = 413) SARS-COV2/RT-PCR ([facility])2022-07-05 14:20:23 Test Item Value Reference Range Interpretation Comments SARS-COV2/RT-PCR Negative Negative The SARS-Co V-2 target (test code = nucleic acids a re not 3089837) detected in thi s specimen. Negative result [...] revoked sooner. Fact Sheet for Healthcare Providers: https://www.cepheid.co m/Documents/Xpert%20Xpress%20SARS%20CoV-2/Fact%20Sheets/302-5602%05UQTT-HTB-9%20 HEALTHCARE%20PROVIDERS%20FACT%20SHEET.pdf Fact Sheet for Healthcare Patients: https://www.KISS[employer]/Documents/Xpert%20Xp ress%20SARS%20CoV-2/Fact%20Sheets/302-3801%02CAHH-DVZ-0%20PATIENT%20FACT%20SHEET .pdfBASIC METABOLIC [id number] 04:42:20 Test Item Value Reference Range Interpretation [...] not appl icable for dialysis patien ts Regulator Tester ID - YARED GB-TYPE NATRIURETIC FACTOR (BNP)2022-07-05 04:36:02 Test Item Value Reference Range Interpretation Comments B-TYPE NATRIURETIC PEPTIDE (BEAKER) 12 pg/mL 0-100 (test code = 700) Regulator Tester ID - BSCBC (HEMOGRAM ONLY)2022-07-05 04:35:15 Test [...] WBC 0-0 (BEAKER) (test code = 413) PT/[id number] 04:28:54 Test Item Value Reference Range Interpretation [...] mechanical heart valves.RAD, CHEST, 1 VIEW, NON [id number] 18:33:00Reason for exam:->desaturationShould this be performed at the bedside?->YesGENEVIEVE [facility] : 1985 Sex: [...] airspace consolidation. Unchanged bilateral pulmonary metastases. Signed: Frederick Frazier MD Report Verified Date/Time: 07/04/2022 18:33:48 BASI METABOLIC [id number] 05:51:36 Test Item Value Reference Range Interpretation [...] not appl icable for dialysis patien ts Regulator Tester ID - KRISTINA WPROTHROMBIN TIME/[id number] 05:40:12 Test Item Value Reference Range Interpretation Comments PROTIME (BEAKER) 15.2 seconds 11.9-14.2 H (test code = 759) INR (BEAKER) (test 1.27 See_Comment [Automat ed message] code = 370) The system [employer] generated this result transmitted ref erence range: <=5.90. The reference range was not used to int erpret this result as normal/abnormal . RECOMMENDED COUMADIN/WARFARIN INR THERAPY RANGESSTANDARD DOSE: 2.0 - 3.0 Includes: PROPHYLAXIS for venous thrombosis, systemic embolization; TREATMENT for venous thrombosis and/or pulmonary embolus.HIGH RISK: Target INR is 2.5-3.5 for patients with mechanical heart valves.CBC W/PLT COUNT & AUTO [id number] 05:31:27 Test Item Value Reference Range Interpretation [...] (BEAKER) (test code = 2801) BASIC METABOLIC [id number] 06:35:44 Test Item Value Reference Range Interpretation [...] not appl icable for dialysis patien ts Regulator Tester ID - PIAYA LCBC W/PLT COUNT & AUTO [id number] 05:49:18 Test Item Value Reference Range Interpretation [...] = 2801) RAD, CHEST, 1 VIEW, NON [id number] 19:25:00Reason for exam:->[facility] : 1985 Sex: MFINAL REPORT [...] metastasis. No pneumothorax. No large effusion. Signed: Mikayla Gordon MDReport Verified Date/Time: 07/02/2022 19:25:12 Reading Location: [facility] C013X Ortho Consult Reading Room FL, FLUORO, NON- SPECIFIC, UP TO 1 [id number] 17:45:00Reason for exam:->Need port placement for treatment of testicular cancer [facility] : 1985 Sex: MAn imaging unit was utilized for this procedure. No radiologist interpretation was requested. Refer to the EMRfor findings. Refer to PACS for any patient radiation dose information.[id number] 11:21:39 Test Item Value Reference Range Interpretation Comments FERRITIN (BEAKER) (test code = 217.42 ng/mL 5.00-275.00 361) Regulator Tester ID - albertina Ramirez, TIBC, % SAT. (WITHOUT FERRITIN)2022-07-02 11:00:36 Test Item Value Reference Range Interpretation Comments IRON (BEAKER) (test code = 547) 15.0 ug/dL 40.0-160.0 L TOTAL IRON BINDING CAPACITY 210 ug/dL 250-450 L (BEAKER) (test code = 769) IRON % SATURATION (2) (BEAKER) 7 % 20-55 L (test code = 3105) Regulator Tester ID Joe eng wBASIC METABOLIC [id number] 06:32:35 Test Item Value Reference Range Interpretation [...] not appl icable for dialysis patien ts Regulator Tester ID Joe ACEVEDO WCBC W/PLT COUNT & AUTO [id number] 06:18:50 Test Item Value Reference Range Interpretation [...] PERCENT (BEAKER) (test code = 2801) BLOOD [id number] 15:01:58 Test Item Value Reference Range Interpretation Comments CULTURE (BEAKER) (test No growth in 5 days code = 1095) The specimen volume collected for this blood culture was below the optimum (10 mL per bottle or 20 mL total). Use of lower volumes may adversely affect recovery and/or detection times of some organisms.BLOOD [id number] 15:01:58 Test Item Value Reference Range Interpretation Comments CULTURE (BEAKER) (test No growth in 5 days code = 1095) BASIC METABOLIC [id number] 06:26:58 Test Item Value Reference Range Interpretation [...] not appl icable for dialysis patien ts Regulator Tester ID - PIAYA LCBC W/PLT COUNT & AUTO [id number] 05:39:06 Test Item Value Reference Range Interpretation [...] (BEAKER) (test code = 2801) BASIC METABOLIC [id number] 07:06:17 Test Item Value Reference Range Interpretation [...] De scription 1092) sq m Result G1 Rfancine l or high >=90 G2 Mildly decreased [...] not appl icable for dialysis patien ts Regulator Tester ID - PIAYA LCBC W/PLT COUNT & AUTO [id number] 06:25:33 Test Item Value Reference Range Interpretation [...] (BEAKER) (test code = 2801) BASIC METABOLIC [id number] 05:39:31 Test Item Value Reference Range Interpretation [...] not appl icable for dialysis patien ts Regulator Tester ID - PIAYA LCBC W/PLT COUNT & AUTO [id number] 05:03:48 Test Item Value Reference Range Interpretation [...] PERCENT (BEAKER) (test code = 2801) CT, [id number] 17:18:00Unlisted Reason for Exam - Click Yes and Enter Reason Below->NoProtocol Please Specify:->Standard ProtocolWill this procedure require oral contrast?->No [facility] 1985 Sex: MFINAL REPORT [...] process. Please correlate clinically. Signed: Jorje Santos [facility] Verified Date/Time: 06/28/2022 17:18:11 Reading Location: [facility] B1 C013Y CT Body Reading Room CT, CHEST, WITH [id number] 17:18:00 Unlisted Reason for Exam - Click Yes and Enter Reason Below->No [facility] : 1985 Sex: MFINAL REPORT [...] process. Please correlate clinically. Signed: Jorje Santos Verified Date/Time: 06/28/2022 17:18:11 Reading Location: [facility] C013Y CT Body Reading Room Urine [id number] 11:13:57 Test Item Value Reference Range Interpretation Comments Result (test code = 6463-4) [facility] [id number] 11:13:57 Test Item Value Reference Range Interpretation Comments Result (test code = 6463-4) No growth [facility] [id number] 11:13:57 Test Item Value Reference Range Interpretation Comments Result (test code = 6463-4) No growth [facility] [id number] 07:08:03 Test Item Value Reference Range Interpretation [...] not appl icable for dialysis patien ts Regulator Tester ID - BSCBC W/PLT COUNT & AUTO [id number] 05:07:24 Test Item Value Reference Range Interpretation [...] code = 2801) ALPHA FETOPROTEIN (AFP), TUMOR [id number] 20:38:58 Test Item Value Reference Range Interpretation Comments ALPHA-FETOPROTEIN (BEAKER) (test 20.9 ng/mL <10.0 H code = 1094) Regulator Tester ID - BSHCG, QUANTITATIVE, [id number] 20:38:57 Test Item Value Reference Range Interpretation Comments GONADOTROPIN, CHORIONIC (HCG) QUANT 1 mIU/mL (BEAKER) (test code = 649) Non- Females: <10 mIU/mL Females: Gestation Age Reference Range(mIU/mL) 0.2-1 Week 5-50 1-2 Weeks 50-500 2-3 Weeks 100-5,000 3-4 Weeks 500-10,000 4-5 Weeks 1,000-50,000 5-6 Weeks 10,000-100,000 6-8 Weeks 15,000- 200,000 2-3 Months 10,000-100,000 Regulator Tester ID - BSLACTATE DEHYDROGENASE (LDH) 2022-06-27 20:14:18 Test Item Value Reference Range Interpretation Comments LACTATE DEHYDROGENASE (BEAKER) (test 959 U/L 125-220 H code = 635) Regulator Tester ID - BSBASIC METABOLIC [id number] 06:01:24 Test Item Value Reference Range Interpretation [...] not appl icable for dialysis patien ts Regulator Tester ID - YARED [id number] 06:01:24 Test Item Value Reference Range Interpretation Comments MAGNESIUM (BEAKER) (test code = 2.1 mg/dL 1.6-2.6 627) Regulator Tester ID - YARED GPROTHROMBIN TIME/[id number] 05:57:59 Test Item Value Reference Range Interpretation Comments PROTIME (BEAKER) 15.8 seconds 11.9-14.2 H (test code = 759) INR (BEAKER) (test 1.34 See_Comment [Automat ed message] code = 370) The system 3D FUTURE VISION II generated this result transmitted ref erence range: <=5.90. The reference range was not used to int erpret this result as normal/abnormal . RECOMMENDED COUMADIN/WARFARIN INR THERAPY RANGESSTANDARD DOSE: 2.0 - 3.0 Includes: PROPHYLAXIS for venous thrombosis, systemic embolization; TREATMENT for venous thrombosis and/or pulmonary embolus.HIGH RISK: Target INR is 2.5-3.5 for patients with mechanical heart valves.CBC W/PLT COUNT & AUTO [id number] 05:42:05 Test Item Value Reference Range Interpretation [...] SARS-Co V-2 (test code = target nucleic 47048-9) acids are not detected in thi s [...] (test code = [place] [address]269-4) not detected in this specimen. Influenza B RT-PCR Negative Negative The Flu B target (test code = [place] [address]-0) not detected in this specimen. RSV by RT-PCR (test Negative Negative The RSV target code = 95168-8) nucleic acid s are not detected in [...] SARS-CoV-2/Flu/RSV by their healthcare provider. Results from [facility] Xpert Xpress SARS-CoV-2/Flu/RSV test should be correlated [...] the Act. Fact Sheet for Healthcare Providers:https://w [employer]/Docu ments/Xpert%20Xpres s%20SARS%20CoV-2/Fa ct%20Sheets/302-390 2%17VGCJ-POC-5%20HE ALTHCARE%20PROVIDER S%20FACT%20SHEET.pd f Fact Sheet for Healthcare Patients:https://[employer]/Docum ents/Xpert%20Xpress %20SARS%20Cov-2/Fac t%20Sheets/302-3801 %68IFHF-EYN-2%20PAT IENT%20FACT%20SHEET .pdf Lab Interpretation Normal (test code = 18279-9) [facility] (Symptomatic ONLY) 2022-06-26 15:40:09 Test Item Value Reference Interpretation Comments Range SARS-COV2/RT-PCR Negative Negative The SARS-Co V-2 (test code = target nucleic 29976-4) acids are not detected in thi s [...] om SARS-CoV-2 in a nasopharyngeal swab specimen [facility] from individual s suspected of COVID-19 by the ir healthcare provider. Influenza A RT-PCR Negative Negative The Flu A target (test code = [place] [address]-9) not detected in this specimen. Influenza B RT-PCR Negative Negative The Flu B target (test code = [place] [address]-5) not detected in this specimen. RSV by RT-PCR (test Negative Negative The RSV target code = 40958-6) nucleic acid s are not detected in [...] the Act. Fact Sheet for Healthcare Providers:https://w ww.[employer]/Docu ments/Xpert%20Xpres s%20SARS%20CoV-2/Fa ct%20Sheets/302-390 2%58ILNN-SSA-7%20HE ALTHCARE%20PROVIDER S%20FACT%20SHEET.pd f Fact Sheet for Healthcare Patients:https://maria teresa w.[employer]/Docum ents/Xpert%20Xpress %20SARS%20Cov-2/Fac t%20Sheets/302-3801 %46OKNC-EQN-9%20PAT IENT%20FACT%20SHEET .pdf Lab Interpretation Normal (test code = 07799-6) [facility] (Symptomatic ONLY) 2022-06-26 15:40:09 Test Item Value Reference Interpretation Comments Range SARS-COV2/RT-PCR Negative Negative The SARS-Co V-2 (test code = target nucleic 35982-9) acids are not detected in thi s [...] om SARS-CoV-2 in a [facility] from individual s suspected of COVID-19 by the ir healthcare provider. Influenza A RT-PCR Negative Negative The Flu A target (test code = [place] [address]-6) not detected in this specimen. Influenza B RT-PCR Negative Negative The Flu B target (test code = [place] 45224-3) not detected in this specimen. RSV by RT-PCR (test Negative Negative The RSV target code = 92729-0) nucleic acid s are not detected in [...] SARS-CoV-2/Flu/RSV by their healthcare provider. Results from [facility] Xpert Xpress SARS-CoV-2/Flu/RSV test should be correlated [...] the Act. Fact Sheet for Healthcare Providers:https://w [employer]/Docu ments/Xpert%20Xpres s%20SARS%20CoV-2/Fa ct%20Sheets/302-390 2%83BGQG-DQL-9%20HE ALTHCARE%20PROVIDER S%20FACT%20SHEET.pd f Fact Sheet for Healthcare Patients:https://ww [employer]/Docum ents/Xpert%20Xpress %20SARS%20Cov-2/Fac t%20Sheets/302-3801 %76KCLW-ZHG-8%20PAT IENT%20FACT%20SHEET .pdf Lab Interpretation Normal (test code = 15698-4) [facility]FLUENZA/RSV [id number] 15:40:09 Test Item Value Reference Range Interpretation Comments SARS-COV2/RT-PCR Negative Negative The SARS-Co V-2 target (test code = nucleic acids a re not 1643810) detected in thi s specimen. Negat leonardo [...] individuals emperatriz pected of COVID-19 by the community health systems. INFLUENZA A RT-PCR Negative Negative The Flu A target nucleic (test code = acids are not d etected in 1883037) this specimen. INFLUENZA B RT-PCR Negative Negative The Flu B target nucleic (test code = acids are not d etected in 8108280) this specimen. RSV RT-PCR (test Negative Negative The RSV tar get nucleic code = 0225852) acids are no t detected in this [...] of the Act.Fact Sheet for Healthcare Providers:https ://www.[employer]/Documents/Xpert%20Xpress%20SARS%20CoV-2/Fact%20Sheets/302-390 2%29RBFA-AYB-7%20HEALTHCARE%20PROVIDERS%20FACT%20SHEET.pdfFact Sheet for Healthcare Patients:https://www.[employer]/Docum ents/Xpert%20Xpress%20SARS%20Cov-2/Fact%20Sheets/302-3801%24UQRC-EOX-7%20PATIENT %20FACT%20SHEET.pdfB-TYPE NATRIURETIC FACTOR (BNP)2022-06-26 14:06:23 Test Item Value Reference Range Interpretation Comments B-TYPE NATRIURETIC PEPTIDE (SANTIAKER) < pg/mL 0-100 (test code = 700) Regulator Tester ID - GIOVANNY BHIGH SENSITIVITY TROPONIN [id number] 13:51:07 Test Item Value Reference Range Interpretation Comments HIGH SENSITIVITY < pg/ml See_Comment [Automated message] TROPONIN I (test code = The system which 1613168) generated this result transmitted ref erence range: <=35. Th e reference range was not used to interpr et this result as normal/abnormal . Regulator Tester ID - GIOVANNY BThe LABEL SEWER STAT High Sensitivity Troponin-I results should be used in conjunction with other diagnostic information such as ECG, clinical observations and information, and patient symptoms to aid in the diagnosis of [place].COMPREHENSIVE METABOLIC [id number] 13:44:50 Test Item Value Reference Range Interpretation [...] St age Description sq m Result G1 Norm al or high >=90 G2 Mildly decreased 60-89 [...] not appl icable for dialysis patien ts Regulator Tester ID - GIOVANNY BUrinalysis w/Microscopic + Reflex to [id number] 13:44:21 Test Item Value Reference Range Interpretation Comments Color, UA (test code Light Yellow = 5778-6) Clarity, UA (test Hazy code = 5767-9) Specific [place], UA 1.010 1.001-1.035 (test code = 5811-5) pH, UA (test code = 7.0 5.0-8.0 5803-2) Protein, UA (test Negative Negative code = 14867-1) Glucose, UA (test Negative Negative code = 365) Ketones, UA (test Negative Negative code = 2514-8) Bilirubin, UA (test Negative Negative code = 85450-6) Blood, UA (test code Negative Negative = 58364-2) Nitrite, UA (test Negative Negative code = 5802-4) Leukocytes, UA (test Large Negative A code = 5799-2) Urobilinogen, UA 0.2 0.2-1.0 (test code = 93287-0) RBC, UA (test code = 7 See_Comment [Autom ated 99376-1) message] The system which generated this result [...] 2 See_Comment [Automate d (test code = 57451-9) messag e] The system which generated this result transmit brook reference range : /HPF. The reference range was not used to interpret this result as normal/abnormal . Specimen Source (test code = 2795) SUMEET (test code = SUMEET) Regulator Tester ID - [auto]Regulator Tester ID - tech Lab Interpretation Abnormal (test code = 17071-3) [facility] [id number] 13:44:21 Test Item Value Reference Range Interpretation [...] = 516) SOURCE(BEAKER) (test code = 2795) Regulator Tester ID - [auto]Regulator Tester ID - techPROTHROMBIN TIME/[id number] 13:34:27 Test Item Value Reference Range Interpretation Comments PROTIME (BEAKER) 15.2 seconds 11.9-14.2 H (test code = 759) INR (BEAKER) (test 1.22 See_Comment [Automat ed message] code = 370) The system 3D FUTURE VISION II generated this result transmitted ref erence range: <=5.90. The reference range was not used to int erpret this result as normal/abnormal . RECOMMENDED COUMADIN/WARFARIN INR THERAPY RANGESSTANDARD DOSE: 2.0 - 3.0 Includes: PROPHYLAXIS for venous thrombosis, systemic embolization; TREATMENT for venous thrombosis and/or pulmonary embolus.HIGH RISK: Target INR is 2.5-3.5 for patients with mechanical heart valves.LACTIC ACID, [id number] 13:33:05 Test Item Value Reference Range Interpretation Comments LACTATE BLOOD VENOUS 0.96 mmol/L 0.50-2.20 Specime n slightly (2) (BEAKER) (test hemolyzed code = 4372) Regulator Tester ID - GIOVANNY BCBC W/PLT COUNT & AUTO [id number] 13:27:53 Test Item Value Reference Range Interpretation [...] = 2801) RAD, CHEST, 1 VIEW, NON [id number] 13:07:00Reason for exam:->Shortness of breathShould this be performed at the bedside?->Yes [facility] 1985 Sex: [...] on 06/26/2022 1:05 PM. Signed: Darrius Richardson MDReport Verified Date/Time: 06/26/2022 13:07:00 ECG/EKG [id number] 12:34:29 Test Item Value Reference Range Interpretation [...] criteria. Lab Interpretation Abnormal (test code = 46071-5) [facility] [id number] 12:34:29 Test Item Value Reference Range Interpretation [...] criteria. Lab Interpretation Abnormal (test code = 59141-8) [facility] [id number] 12:34:29 Test Item Value Reference Range Interpretation [...] criteria. Lab Interpretation Abnormal (test code = 78693-3) [facility] (NA, K, CL, CO2, GLUCOSE, BUN, CREATININE, CA)2022-06-13 12:39:24 Test Item Value Reference Range Interpretation Comments NA (test code = 138 mmol/L 135-145 3197468082) K (test code = 3.8 mmol/L 3.5-5.0 4175810142) CL (test code = 106 mmol/L 98-108 2097498915) CO2 TOTAL (test code = 24 mmol/L 23-31 2178212768) AGAP (test code = 2-16 3593848476) BUN (test code = 3 mg/dL 7-23 L 0643575344) GLUCOSE (test code = 114 mg/dL 70-110 H 7061842297) CREATININE (test code = 0.50 mg/dL 0.60-1.25 L 1625199103) CALCIUM (test code = 8.8 mg/dL 8.6-10.6 9339531256) eGFR (test code = mL/min/1.73m2 8164889075) SUMEET (test code = SUMEET) Association of [...] tests). Lab Interpretation Abnormal (test code = 68364-4) [facility] WITH [id number] 10:36:11 Test Item Value Reference Range Interpretation [...] RDW-SD (test code = 44.1 fL 38.5-51.6 08691-6) RDW-CV (test code = 14.1 % 12.1-15.4 788-0) PLT (test code = See_Comment H [Automated 777-3) message] The sy stem which generated this result transmitted reference range : 150 - 328 10*3/ ?L. The reference r khadijah was not used to interpret this result as normal/abnormal . MPV (test code = 8.6 fL 9.8-13.0 L 14968-6) NRBC/100 WBC (test See_Comment [Automat ed code = 1599898754) message] The system which generated this result transmitted reference range : 0.0 - 10.0 /100 WBCs. The refer ence range was not u sed to interpret th is result as normal/abnormal . NRBC x10^3 (test code See_Comment [Auto mated = 9681948679) message] The s ystem which generated this result transmitted reference range : 10*3/?L. The reference range was not used to interpret this result as normal/abnormal . GRAN MAT (NEUT) % 75.9 % (test code = 770-8) IMM GRAN % (test code 0.40 % = 3364690071) LYMPH % (test code = 14.9 % 736-9) MONO % (test code = 7.1 % 5905-5) EOS % (test code = 1.4 % 713-8) BASO % (test code = 0.3 % 706-2) GRAN MAT x10^3(ANC) 8.97 10*3/uL 1.99-6.95 H (test code = 2156193177) IMM GRAN x10^3 (test 0.05 10*3/uL 0.00-0.06 code = 8609162510) LYMPH x10^3 (test code 1.76 10*3/uL 1.09-3.23 = 731-0) MONO x10^3 (test code 0.84 10*3/uL 0.36-1.02 = 742-7) EOS x10^3 (test code = 0.16 10*3/uL 0.06-0.53 711-2) BASO x10^3 (test code 0.03 10*3/uL 0.01-0.09 = 704-7) Lab Interpretation Abnormal (test code = 00790-5) [facility] METABOLIC PANEL (NA, K, CL, CO2, GLUCOSE, BUN, CREATININE, CA)2022-06-12 11:51:51 Test Item Value Reference Range Interpretation Comments NA (test code = 137 mmol/L 135-145 3622788689) K (test code = 3.7 mmol/L 3.5-5.0 6596057336) CL (test code = 106 mmol/L 98-108 3929299674) CO2 TOTAL (test code = 26 mmol/L 23-31 7578298539) AGAP (test code = 2-16 0191207517) BUN (test code = 8 mg/dL 7-23 6450968625) GLUCOSE (test code = 111 mg/dL 70-110 H 2559487983) CREATININE (test code = 0.60 mg/dL 0.60-1.25 6657007377) CALCIUM (test code = 8.6 mg/dL 8.6-10.6 3638478734) eGFR (test code = mL/min/1.73m2 1957110503) SUMEET (test code = SUMEET) Association of [...] tests). Lab Interpretation Abnormal (test code = 60014-2) [facility] WITH [id number] 10:58:09 Test Item Value Reference Range Interpretation Comments WBC (test code = See_Comment H [Automated 7613-2) message] The sy stem which generated this result transmitted reference range : 4.20 - 10.70 10*3/?L. The reference range was not used to interpret this result as normal/abnormal . RBC (test code = See_Comment L [Automated 709-8) message] The sy stem which generated this [...] RDW-SD (test code = 44.3 fL 38.5-51.6 11314-9) RDW-CV (test code = 14.1 % 12.1-15.4 788-0) PLT (test code = See_Comment H [Automated 777-3) message] The sy stem which generated this result transmitted reference range : 150 - 328 10*3/ ?L. The reference r khadijah was not used to interpret this result as normal/abnormal . MPV (test code = 8.5 fL 9.8-13.0 L 83491-7) NRBC/100 WBC (test See_Comment [Automat ed code = 9112692731) message] The system which generated this result transmitted reference range : 0.0 - 10.0 /100 WBCs. The refer ence range was not u sed to interpret th is result as normal/abnormal . NRBC x10^3 (test code See_Comment [Auto mated = 5167116344) message] The s ystem which generated this result transmitted reference range : 10*3/?L. The reference range was not used to interpret this result as normal/abnormal . GRAN MAT (NEUT) % 71.9 % (test code = 770-8) IMM GRAN % (test code 0.20 % = 7556135074) LYMPH % (test code = 17.7 % 736-9) MONO % (test code = 8.7 % 5905-5) EOS % (test code = 1.3 % 713-8) BASO % (test code = 0.2 % 706-2) GRAN MAT x10^3(ANC) 8.93 10*3/uL 1.99-6.95 H (test code = 4729580463) IMM GRAN x10^3 (test 0.03 10*3/uL 0.00-0.06 code = 2310297151) LYMPH x10^3 (test code 2.20 10*3/uL 1.09-3.23 = 731-0) MONO x10^3 (test code 1.08 10*3/uL 0.36-1.02 H = 742-7) EOS x10^3 (test code = 0.16 10*3/uL 0.06-0.53 711-2) BASO x10^3 (test code 0.03 10*3/uL 0.01-0.09 = 704-7) Lab Interpretation Abnormal (test code = 89213-3) [facility] METABOLIC PANEL (NA, K, CL, CO2, GLUCOSE, BUN, CREATININE, CA)2022-06-12 05:04:00 Test Item Value Reference Range Interpretation Comments NA (test code = 134 mmol/L 135-145 L 3395155738) K (test code = 4.3 mmol/L 3.5-5.0 5951149166) CL (test code = 101 mmol/L 98-108 1985694245) CO2 TOTAL (test code = 23 mmol/L 23-31 2508910015) AGAP (test code = 2-16 8311151521) BUN (test code = 12 mg/dL 7-23 1642540075) GLUCOSE (test code = 118 mg/dL 70-110 H 3430947161) CREATININE (test code = 0.67 mg/dL 0.60-1.25 5174710075) CALCIUM (test code = 9.5 mg/dL 8.6-10.6 6632831207) eGFR (test code = mL/min/1.73m2 2200198736) SUMEET (test code = SUMEET) Association of [...] tests). Lab Interpretation Abnormal (test code = 50733-0) [facility] WITH [id number] 04:49:21 Test Item Value Reference Range Interpretation Comments WBC (test code = See_Comment H [Automated 6390-2) message] The system which generated this result transmit brook reference range : 4.20 - 10.70 10*3/?L. The reference range was not used to interpret this result as normal/abnormal . RBC (test code = See_Comment [Automated 999-8) message] The system which generated this result [...] RDW-SD (test code = 43.4 fL 38.5-51.6 03432-3) RDW-CV (test code = 14.0 % 12.1-15.4 788-0) PLT (test code = See_Comment H [Automated 777-3) message] The system which generated this result transmit brook reference range : 150 - 328 10*3/ ?L. The reference range was not u sed to interpret th is result as normal/abnormal . MPV (test code = 8.3 fL 9.8-13.0 L 58107-1) NRBC/100 WBC (test See_Comment [Automat ed code = 2233608062) message] The system which generated this result transmit brook reference range : 0.0 - 10.0 /100 WBCs. The reference range was not used to interpret this result as normal/abnormal . NRBC x10^3 (test code See_Comment [Auto mated = 7030736582) message] The system which generated this result transmit brook reference range : 10*3/?L. The reference range was not used to interpret this result as normal/abnormal . GRAN MAT (NEUT) % 78.4 % (test code = 770-8) IMM GRAN % (test code 0.60 % = 4384332894) LYMPH % (test code = 12.8 % 736-9) MONO % (test code = 6.8 % 5905-5) EOS % (test code = 1.0 % 713-8) BASO % (test code = 0.4 % 706-2) GRAN MAT x10^3(ANC) 12.66 10*3/uL 1.99-6.95 H (test code = 5854990659) IMM GRAN x10^3 (test 0.10 10*3/uL 0.00-0.06 H code = 1433367472) LYMPH x10^3 (test code 2.07 10*3/uL 1.09-3.23 = 731-0) MONO x10^3 (test code 1.10 10*3/uL 0.36-1.02 H = 742-7) EOS x10^3 (test code = 0.16 10*3/uL 0.06-0.53 711-2) BASO x10^3 (test code 0.06 10*3/uL 0.01-0.09 = 704-7) Lab Interpretation Abnormal (test code = 17697-5) [facility] METABOLIC PANEL (NA, K, CL, CO2, GLUCOSE, BUN, CREATININE, CA)2022-04-21 11:08:33 Test Item Value Reference Range Interpretation Comments NA (test code = 142 mmol/L 135-145 2514114467) K (test code = 3.5 mmol/L 3.5-5 4677699918) CL (test code = 106 mmol/L 98-108 3644872033) CO2 TOTAL (test code = 27 mmol/L 23-31 9810470453) AGAP (test code = 2-16 5988608748) BUN (test code = 7 mg/dL 7-23 2346760056) GLUCOSE (test code = 120 mg/dL 70-110 H [id number]) CREATININE (test code = 0.52 mg/dL 0.6-1.25 L 2237344926) CALCIUM (test code = 8.6 mg/dL 8.6-10.6 1547881173) eGFR (test code = mL/min/1.73m2 6071070376) SUMEET (test code = SUMEET) Association of [...] tests). Lab Interpretation Abnormal (test code = 73709-1) [facility] WITH [id number] 10:21:47 Test Item Value Reference Range Interpretation [...] RDW-SD (test code = 47.8 fL 38.5-51.6 45275-6) RDW-CV (test code = 14.9 % 12.1-15.4 788-0) PLT (test code = See_Comment H [Automated 777-3) message] The sy stem which generated this result transmitted reference range : 150 - 328 10*3/ ?L. The reference r khadijah was not used to interpret this result as normal/abnormal . MPV (test code = 8.7 fL 9.8-13 L 08975-9) NRBC/100 WBC (test See_Comment [Automat ed code = 1554597576) message] The system which generated this result transmitted reference range : 0.0 - 10.0 /100 WBCs. The refer ence range was not u sed to interpret th is result as normal/abnormal . NRBC x10^3 (test code See_Comment [Auto mated = 4268168171) message] The s ystem which generated this result transmitted reference range : 10*3/?L. The reference range was not used to interpret this result as normal/abnormal . GRAN MAT (NEUT) % 68.6 % (test code = 770-8) IMM GRAN % (test code 0.50 % = 4347419207) LYMPH % (test code = 17.6 % 736-9) MONO % (test code = 11.3 % 5905-5) EOS % (test code = 1.8 % 713-8) BASO % (test code = 0.2 % 706-2) GRAN MAT x10^3(ANC) 8.05 10*3/uL 1.99-6.95 H (test code = 4711171619) IMM GRAN x10^3 (test 0.06 10*3/uL 0-0.06 code = 3923497387) LYMPH x10^3 (test code 2.06 10*3/uL 1.09-3.23 = 731-0) MONO x10^3 (test code 1.32 10*3/uL 0.36-1.02 H = 742-7) EOS x10^3 (test code = 0.21 10*3/uL 0.06-0.53 711-2) BASO x10^3 (test code 0.01-0.09 = 704-7) Lab Interpretation Abnormal (test code = 08845-2) [facility] GLUCOSE (AUTOMATED)2022-04-20 12:58:10 Test Item Value Reference Range Interpretation Comments POCT GLU (test code = 6659353452) 111 mg/dL 70-110 H Lab Interpretation (test code = Abnormal 21262-8) [facility] GLUCOSE (AUTOMATED)2022-04-20 09:45:13 Test Item Value Reference Range Interpretation Comments POCT GLU (test code = 6095386107) 91 mg/dL 70-110 Lab Interpretation (test code = Normal 36989-3) [facility] GLUCOSE (AUTOMATED)2022-04-20 01:57:06 Test Item Value Reference Range Interpretation Comments POCT GLU (test code = 9440658009) 139 mg/dL 70-110 H Lab Interpretation (test code = Abnormal 59214-1) [facility] [id number] 18:58:04 Test Item Value Reference Range Interpretation Comments LACTIC ACID (test code = 1.19 mmol/L 0.5-2.2 7181557401) Lab Interpretation (test code = Normal 49264-5) [facility] [id number] 15:21:49 Test Item Value Reference Range Interpretation Comments LACTIC ACID (test code = 2.43 mmol/L 0.5-2.2 H 5939244562) Lab Interpretation (test code = Abnormal 02488-1) [facility] [id number] 19:13:33 Test Item Value Reference Range Interpretation Comments Blood Culture Workup No organisms (test code = 600-7) isolated Lab Interpretation (test Normal code = 69715-7) [facility] [id number] 23:01:39 Test Item Value Reference Range Interpretation Comments Blood Culture-Aerobic No organisms No growth Previo us (test code = 77274-3) isolated prelim inary verified result was Culture [...] Culture-Anaerobic isolated preliminar y (test code = 26148-9) verifi ed result was Culture In Progress [...] CDT Lab Interpretation Normal (test code = 40567-0) [facility] (59679)2022 11:10:10 Test Item Value Reference Range Interpretation Comments NA (test code = 137 mmol/L 135-145 6723237540) K (test code = 4.0 mmol/L 3.5-5 9308524864) CL (test code = 107 mmol/L 98-108 3220262542) CO2 TOTAL (test code = 27 mmol/L 23-31 2012659175) AGAP (test code = 2-16 3769336461) BUN (test code = 8 mg/dL 7-23 7824797795) GLUCOSE (test code = 102 mg/dL 70-110 6271493489) CREATININE (test code = 0.58 mg/dL 0.6-1.25 L 4062859836) TOTAL BILI (test code = 0.2 mg/dL 0.1-1.3 9116933935) CALCIUM (test code = 8.4 mg/dL 8.6-10.6 L 8661412808) T PROTEIN (test code = 7.7 g/dL 6.3-8.2 4086892974) ALBUMIN (test code = 4.0 g/dL 3.5-5 6206365199) ALK PHOS (test code = 137 U/L 34-122 H 4484688063) ALTv (test code = 17 U/L 5-50 1742-6) AST(SGOT) (test code = 22 U/L 13-40 2198670174) eGFR (test code = mL/min/1.73m2 0110549900) SUMEET (test code = SUMEET) Association of [...] tests). Lab Interpretation Abnormal (test code = 85427-2) [facility] WITH [id number] 10:41:06 Test Item Value Reference Range Interpretation Comments WBC (test code = See_Comment [Automated 2790-2) message] The sy stem which generated this [...] RDW-SD (test code = 44.7 fL 38.5-51.6 59753-2) RDW-CV (test code = 14.5 % 12.1-15.4 788-0) PLT (test code = See_Comment H [Automated 777-3) message] The sy stem which generated this result transmitted reference range : 150 - 328 10*3/ ?L. The reference r khadijah was not used to interpret this result as normal/abnormal . MPV (test code = 8.7 fL 9.8-13 L 66094-3) NRBC/100 WBC (test See_Comment [Automat ed code = 1854940094) message] The system which generated this result transmitted reference range : 0.0 - 10.0 /100 WBCs. The refer ence range was not u sed to interpret th is result as normal/abnormal . NRBC x10^3 (test code See_Comment [Auto mated = 3027333458) message] The s ystem which generated this result transmitted reference range : 10*3/?L. The reference range was not used to interpret this result as normal/abnormal . GRAN MAT (NEUT) % 56.8 % (test code = 770-8) IMM GRAN % (test code 0.40 % = 3010286823) LYMPH % (test code = 33.5 % 736-9) MONO % (test code = 6.2 % 5905-5) EOS % (test code = 2.8 % 713-8) BASO % (test code = 0.3 % 706-2) GRAN MAT x10^3(ANC) 5.06 10*3/uL 1.99-6.95 (test code = 1005322482) IMM GRAN x10^3 (test 0.04 10*3/uL 0-0.06 code = 6867387412) LYMPH x10^3 (test code 2.99 10*3/uL 1.09-3.23 = 731-0) MONO x10^3 (test code 0.55 10*3/uL 0.36-1.02 = 742-7) EOS x10^3 (test code = 0.25 10*3/uL 0.06-0.53 711-2) BASO x10^3 (test code 0.03 10*3/uL 0.01-0.09 = 704-7) Lab Interpretation Abnormal (test code = 29227-0) [facility] (75614[facility] (ALB,T.PRO,BILI T,BU/BC,ALT,AST,ALK PHOS)2022-03-15 11:20:14 Test Item Value Reference Range Interpretation Comments TOTAL BILI (test code = 3485885040) 0.3 mg/dL 0.1-1.1 BILI UNCON (test code = 7294291446) 0.1 mg/dL 0.1-1.1 BILI CONJ (test code = 4871979863) 0.0 mg/dL 0-0.3 T PROTEIN (test code = 1916473905) 7.9 g/dL 6.3-8.2 ALBUMIN (test code = 2842868824) 4.1 g/dL 3.5-5 ALK PHOS (test code = 2890798953) 149 U/L 34-122 H ALTv (test code = 1742-6) 19 U/L 5-50 AST(SGOT) (test code = 9689067849) 31 U/L 13-40 Lab Interpretation (test code = Abnormal 58422-9) [facility] [id number] 19:20:42 Test Item Value Reference Interpretation Comments Range C. trachomatis NOT DETECTED RNA, TMA (test code = 1384738) N. gonorrhoeae NOT DETECTED REFERENCE RA NGE: NOT RNA, TMA (test DETECTED Meth odology: code = 1654897) Transcriptio n Mediated Amplification ( TMA)to detect RNA. The analytical perf ormance characteristics of thisassay, when used to test SurePat h(TM) specimens haveb een determined by [employer]. Th e modificationsha ve not been cleared or approved by the FDA. This assayhas b een validated pursu ant to the [place] regula tions andis used for clinical purpos es. For additional information, pl ease refer tohttps://educa tion.[employer]. sciencebite/faq /JMM650(This li nk is being provided for informational/e ducatio nal purposes on ly.) SUMEET (test code = Performing Lab SUMEET) *[employer]D[facility] [employer] [facility] [address] [place] [address] Phoebe Dumont MD [facility] Metabolic [id number] 07:12:27 Test Item Value Reference Range Interpretation Comments Sodium (test code = 137 meq/L 812-899 6173-2) Potassium (test code = 3.7 meq/L 3.5-5.1 2823-3) Chloride (test code = 105 meq/L 98-107 5-0) CO2 (test code = 22 meq/L 22-29 2027-9) BUN (test code = 6 mg/dL 7-21 L 3094-0) Creatinine (test code 0.65 mg/dL 0.57-1.25 = 2160-0) Glucose (test code = 102 mg/dL 70-105 2345-7) Calcium (test code = 9.1 mg/dL 8.4-10.2 22950-4) EGFR (test code = 139 mL/min/1.73 [place] [address]-0) NOT ACCURATE CREATININE CLEARANCE IN PREDICTING GLOMERULAR FILTRATION RATE . ESTIMATED GFR I S NOT APPLICABLE FOR DIALYSIS PATIENTS. SUMEET (test code = SUMEET) Regulator Tester ID - YARED G Lab Interpretation Abnormal (test code = 69355-8) [facility] METABOLIC [id number] 07:12:27 Test Item Value Reference Range Interpretation [...] S NOT APPLICABLE FOR DIALYSIS PATIEN TS. Regulator Tester ID - YARED GCBC with platelet count + automated [id number] 05:35:22 Test Item Value Reference Range Interpretation Comments WBC (test code = 6690-2) 9.0 See_Comment [A utomated message] The system [employer] generated this result transmitted ref erence range: 3.5 - 10 .5 K/L. The refe rence range was not u sed to interpret this result as normal/abnor mal. RBC (test code = 789-8) 4.53 See_Comment L [Au tomated message] The system [employer] generated this result transmitted ref erence range: 4.63 - 6 .08 M/L. The refe rence range was not u sed to interpret this result as normal/abnor mal. MCHC (test code = 786-4) 32.7 See_Comment L [A utomated message] The system [employer] generated this result transmitted ref erence range: [...] See_Comment [Aut omated message] 777-3) The system [employer] generated this result transmitted ref erence range: 150 - 45 0 K/CU MM. The referen ce range was not u sed to interpret this result as normal/abnor mal. MPV (test code = 8.6 fL 9.4-12.4 L 25701-2) nRBC (test code = 413) 0 See_Comment [Aut omated message] The system [employer] generated this result transmitted ref erence range: [...] H [Aut omated message] 670) The system [employer] generated this result transmitted ref erence range: 1.78 - 5 .38 K/L. The refe rence range was not u sed to interpret this result as normal/abnor mal. # Lymphs (test code = 1.84 See_Comment [Auto mated message] 414) The system [employer] generated this result transmitted ref erence range: 1.32 - 3 .57 K/L. The refe rence range was not u sed to interpret this result as normal/abnor mal. # Monos (test code = 0.64 See_Comment [Autom ated message] 415) The system [employer] generated this result transmitted ref erence range: 0.30 - 0 .82 K/L. The refe rence range was not u sed to interpret this result as normal/abnor mal. # Eos (test code = 416) 0.21 See_Comment [Au tomated message] The system [employer] generated this result transmitted ref erence range: 0.04 - 0 .54 K/L. The refe rence range was not u sed to interpret this result as normal/abnor mal. # Baso (test code = 417) 0.03 See_Comment [A utomated message] The system [employer] generated this result transmitted ref erence range: 0.01 - 0 .08 K/L. The refe rence range was not u sed to interpret this result as normal/abnor mal. Immature 0 % 0-1 Granulocytes-Relative (test code = 2801) Lab Interpretation (test Abnormal code = 33744-5) [facility] W/PLT COUNT & AUTO [id number] 05:35:22 Test Item Value Reference Range Interpretation [...] (BEAKER) (test code = 2801) BASIC METABOLIC [id number] 06:57:58 Test Item Value Reference Range Interpretation [...] S NOT APPLICABLE FOR DIALYSIS PATIEN TS. Regulator Tester ID - PIAYA LCBC W/PLT COUNT & AUTO [id number] 05:40:05 Test Item Value Reference Range Interpretation [...] 0-1 PERCENT (BEAKER) (test code = 2801) [id number] 14:40:12 Test Item Value Reference Range Interpretation Comments RPR (test code = 81042-8) Nonreactive Nonreactive Lab Interpretation (test code = Normal 44809-4) [facility]12 Test Item Value Reference Range Interpretation Comments RPR SCREEN (BEAKER) (test code = Nonreactive Nonreactive 420) Lactate dehydrogenase (LDH)2021-04-18 12:27:24 Test Item Value Reference Range Interpretation Comments LDH (test code = 2532-0) 219 U/L 125-220 SUMEET (test code = SUMEET) Regulator Tester ID Joe TERA [place] Lab Interpretation (test Normal code = 00636-6) [facility] (LDH)2021-04-18 12:27:24 Test Item Value Reference Range Interpretation Comments LACTATE DEHYDROGENASE (BEAKER) (test 219 U/L 125-220 code = 635) Regulator Tester ID Joe HALEY FAlpha fetoprotein (AFP), tumor [id number] 11:20:09 Test Item Value Reference Range Interpretation Comments Alpha-Fetoprotein <2.0 See_Comment [Automate d (test code = 1834-1) message ] The system which generated this result transmit brook reference range : <10.0 ng/mL. Th e reference range was not used to interpret this result as normal/abnormal . SUMEET (test code = SUMEET) Regulator Tester ID Joe TERA F Lab Interpretation Normal (test code = 13633-8) [facility] (AFP), TUMOR [id number] 11:20:09 Test Item Value Reference Range Interpretation Comments ALPHA-FETOPROTEIN (BEAKER) (test code < ng/mL <10.0 = 1094) Regulator Tester ID Joe HALEY FhCG, quantitative, [id number] 09:46:47 Test Item Value Reference Range Interpretation Comments hCG Quant (test code 5 mIU/mL = 42417-8) SUMEET (test code = SUMEET) Non- Females: <10 mIU/mL Females: Gestation Age Reference Range(mIU/mL) 0.2-1 Week 5-50 1-2 Weeks 50-500 2-3 Weeks 100-5,000 3-4 Weeks 500-10,000 4-5 Weeks 1,000-50,000 5-6 Weeks 10,000-100,000 6-8 Weeks 15,000-200,000 2-3 Months 10,000-100,000 Regulator Tester ID - TERA [place] [facility], QUANTITATIVE, [id number] 09:46:47 Test Item Value Reference Range Interpretation Comments GONADOTROPIN, CHORIONIC (HCG) QUANT 5 mIU/mL (BEAKER) (test code = 649) Non- Females: <10 mIU/mL Females: Gestation Age Reference Range(mIU/mL) 0.2-1 Week 5-50 1-2 Weeks 50-500 2-3 Weeks 100-5,000 3-4 Weeks 500-10,000 4-5 Weeks 1,000-50,000 5-6 Weeks 10,000-100,000 6-8 Weeks 15,000- 200,000 2-3 Months 10,000-100,000 Regulator Tester ID Joe HALEY FComprehensive metabolic [id number] 08:04:37 Test Item Value Reference Range Interpretation Comments Protein, Total (test 7.2 See_Comment [Autom ated code = 2885-2) message] The system which generated this result transmitted reference range : 6.0 - 8.3 gm/dL . The reference range was not used to interpr et this result as normal/abnormal . Albumin (test code = 3.3 g/dL 3.5-5.0 L 98021-6) Alkaline Phosphatase 122 U/L 40-150 (test code = 6768-6) Total Bilirubin (test 0.8 mg/dL 0.2-1.2 code = 1975-2) Sodium (test code = 137 meq/L 887-706 9548-2) Potassium (test code 3.7 meq/L 3.5-5.1 = 2823-3) Chloride (test code = 108 meq/L 98-107 H 2075-0) CO2 (test code = 21 meq/L 22-29 L 8-9) BUN (test code = 6 mg/dL 7-21 L 3094-0) Creatinine (test code 0.62 mg/dL 0.57-1.25 = 2160-0) Glucose (test code = 120 mg/dL 70-105 H 2345-7) Calcium (test code = 8.9 mg/dL 8.4-10.2 20603-4) AST (test code = 14 U/L 5-34 1920-8) ALT (test code = 13 U/L 6-55 1742-6) EGFR (test code = 147 mL/min/1.[place] [address]-3) NOT ACCURATE CREATININE CLEARANCE IN PREDICTING GLOMERULAR FILTRATION RATE . ESTIMATED GFR I S NOT APPLICABLE FOR DIALYSIS PATIENTS. SUMEET (test code = SUMEET) Regulator Tester ID - YARED GOperator ID - TERA [place] Lab Interpretation Abnormal (test code = 29811-6) [facility] [id number] 08:04:37 Test Item Value Reference Range Interpretation [...] S NOT APPLICABLE FOR DIALYSIS PATIEN TS. Regulator Tester ID - YARED WOODperator ID - TERA FManual [id number] 07:20:32 Test Item Value Reference Range Interpretation [...] = 3438) SUMEET (test code = SUMEET) Regulator Tester ID - giovanny Yunior comments: Slide comments: Lab Interpretation (test Abnormal code = 33643-1) [facility](CELLAVISION MANUAL DIFF)2021-04-18 07:20:32 Test Item Value [...] CONCENTRATION Adequate (CELLAVISION)(BEAKER) (test code = 3438) Regulator Tester ID - giovanny Mojica comments: Slide comments:CBC W/PLT COUNT & AUTO [id number] 07:20:30 Test Item Value Reference Range Interpretation [...] code = 413) HIV-1 Antigen with HIV-1/2 [id number] 06:43:00 Test Item Value Reference Range Interpretation Comments HIV-1 Antigen with HIV Nonreactive Nonreactive 1&2 Antibody (test code = 03238-5) SUMEET (test code = SUMEET) Regulator Tester ID - PIAYA L Lab Interpretation (test Normal code = 31990-2) [facility] ANTIGEN WITH HIV-1/2 [id number] 06:43:00 Test Item Value Reference Range Interpretation Comments HIV-1 ANTIGEN WITH HIV 1\\T\\2 Nonreactive Nonreactive ANTIBODY (2) (BEAKER) (test code = 2586) Regulator Tester ID - PINOE LHepatitis panel, [id number] 06:42:59 Test Item Value Reference Range Interpretation Comments Hep A IgM (test code = Nonreactive Nonreactive 56285-7) Hep B C IgM (test code = Nonreactive Nonreactive 71236-3) Hepatitis C Ab (test Nonreactive Nonreactive code = 50475-3) Hepatitis B surface Nonreactive Nonreactive antigen (test code = 5195-3) SUMEET (test code = SUMEET) Regulator Tester ID - PIAYA L Lab Interpretation (test Normal code = 62332-3) [facility], [id number] 06:42:59 Test Item Value Reference Range Interpretation Comments HEPATITIS A IGM ANTIBODY (BEAKER) Nonreactive Nonreactive (test code = 498) HEPATITIS B CORE IGM ANTIBODY Nonreactive Nonreactive (BEAKER) (test code = 645) HEPATITIS C ANTIBODY (BEAKER) Nonreactive Nonreactive (test code = 367) HEPATITIS B SURFACE ANTIGEN (2) Nonreactive Nonreactive (BEAKER) (test code = 2585) Regulator Tester ID - PIAYA L
[2022-08-22] MEDS ORDERED: BISACODYL 10 MG RECTAL SUPP ONE (01:08)
[2022-08-22] MEDS ORDERED: ONDANSETRON 4 MG/2 ML VIAL ONE ×2 (01:09→03:23)
[2022-08-22] MEDS ORDERED: NA CHLORIDE 0.9% 2,000 ML ONE (01:09)
[2022-08-22] MEDS ORDERED: FAMOTIDINE 20 MG/2 ML VIAL IV ONE (01:09)
[2022-08-22] MEDS ORDERED: MORPHINE 4 MG/ML SYR ONE (01:09)
[2022-08-22] MEDS ORDERED: LACTULOSE 20 GM/30 ML UCUP ONE (01:10)
[2022-08-22 01:48] LABS: Absolute Lymphocytes (CBC) 1.1 K/uL (0.7-4.9); Hematocrit 32.4 % (39.6-49.0); Lymphocytes % 4.2 % (15.3-44.8); MCV 81.1 fL (80-100); MPV 6.6 fL (7.6-11.3)
[2022-08-22 01:55] LABS: Urine Blood Trace-lysed (Negative); Urine Glucose Negative (Negative); Urine Protein Trace (Negative); Urine pH 6.5 (5.0-7.0)
[2022-08-22 01:57] LABS: Albumin 3.4 g/dL (3.4-5.0); Bilirubin Total 0.6 mg/dL (0.2-1.0)
[2022-08-22] MEDS ORDERED: CEFTRIAXONE 1000 MG/VIAL ONE (02:45)
[2022-08-22] MEDS ORDERED: NA CHLORIDE 0.9% 50 ML ONE (02:45)
[2022-08-22 02:47] LABS: Renal Epithelial <5 /HPF (None Seen); Transitional Epithelial <5 /HPF (None Seen); Urine Bacteria None Seen /HPF (<20); Urine RBC <5 /HPF (None Seen); Urine WBC Clump Rare /HPF (None Seen)
[2022-08-22 02:50] LABS: Anisocytosis 1+; Blood Morphology Comment NOTED (NOT SEEN); Hypochromasia 1+; Platelet Estimate ADEQ
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
--- NOTE | 2022-08-22 03:08 | EDPHYS ---
Physician Documentation [facility] Name: Aidan East Age: 37 yrs Sex: Male : 1985 Arrival Date: 08/22/2022 Time: 00:00 Bed 25 Private MD: SAVI Physician Yobany Lord HPI: 08/22 00:53 This 37 yrs old Male presents to ER via Wheelchair with complaints of uyen Abdominal Pain. 00:53 The patient presents with abdominal pain in the lower abdomen, in the left lower uyen quadrant, abdominal distention in the upper abdomen, in the lower abdomen. Onset: The symptoms/episode began/occurred 1 day(s) ago. The symptoms do not radiate. Associated signs and symptoms: none. Modifying factors: The symptoms are alleviated by nothing, the symptoms are aggravated by nothing. Severity of pain: At its worst the pain was moderate in the emergency department the pain is unchanged. The patient has experienced similar episodes in the past, several times. Historical: - Allergies: 00:02 No Known Allergies; kl - Home Meds: 00:02 Phenergan Oral [Active]; Zofran Oral [Active]; [place] 5-325 mg Oral tab [Active]; kl senekot [Active]; Augmentin Oral [Active]; - PMHx: 00:02 paraplegic; testicular cancer; UTI; kl - PSHx: 00:02 T12 surgery; Testicle removed; kl - Immunization history:: Adult Immunizations not up to date. - Social history:: Smoking status: Patient/guardian denies using tobacco. - Family history:: not pertinent. ROS: 00:53 Constitutional: Negative for fever, chills, and weight loss, Eyes: Negative for injury, uyen pain, redness, and discharge, ENT: Negative for injury, pain, and discharge, Neck: Negative for injury, pain, and swelling, Cardiovascular: Negative for chest pain, palpitations, and edema, Respiratory: Negative for shortness of breath, cough, wheezing, and pleuritic chest pain, Back: Negative for injury and pain, : Negative for injury, bleeding, discharge, and swelling, MS/Extremity: Negative for injury and deformity, Skin: Negative for injury, rash, and discoloration, Neuro: Negative for headache, weakness, numbness, tingling, and seizure, Psych: Negative for depression, anxiety, suicide ideation, homicidal ideation, and hallucinations, Allergy/Immunology: Negative for hives, rash, and allergies, Endocrine: Negative for neck swelling, polydipsia, polyuria, polyphagia, and marked weight changes, Hematologic/Lymphatic: Negative for swollen nodes, abnormal bleeding, and unusual bruising. 00:53 Abdomen/GI: Positive for abdominal pain, constipation, abdominal distension, of the left lower quadrant. Exam: 00:53 Constitutional: This is a well developed, well nourished patient who is awake, alert, uyen and in no acute distress. Head/Face: Normocephalic, atraumatic. Eyes: Pupils equal round and reactive to light, extra-ocular motions intact. Lids and lashes normal. Conjunctiva and sclera are non-icteric and not injected. Cornea within normal limits. Periorbital areas with no swelling, redness, or edema. ENT: Nares patent. No nasal discharge, no septal abnormalities noted. Tympanic membranes are normal and external auditory canals are clear. Oropharynx with no redness, swelling, or masses, exudates, or evidence of obstruction, uvula midline. Mucous membranes moist. Neck: Trachea midline, no thyromegaly or masses palpated, and no cervical lymphadenopathy. Supple, full range of motion without nuchal rigidity, or vertebral point tenderness. No Meningismus. Chest/axilla: Normal chest wall appearance and motion. Nontender with no deformity. No lesions are appreciated. Cardiovascular: Regular rate and rhythm with a normal S1 and S2. No gallops, murmurs, or rubs. Normal PMI, no JVD. No pulse deficits. Respiratory: Lungs have equal breath sounds bilaterally, clear to auscultation and percussion. No rales, rhonchi or wheezes noted. No increased work of breathing, no retractions or nasal flaring. Abdomen/GI: Soft, non-tender, with normal bowel sounds. No distension or tympany. No guarding or rebound. No evidence of tenderness throughout. Back: No spinal tenderness. No costovertebral tenderness. Full range of motion. Male : Normal genitalia with no discharge or lesions. Skin: Warm, dry with normal turgor. Normal color with no rashes, no lesions, and no evidence of cellulitis. MS/ Extremity: Pulses equal, no cyanosis. Neurovascular intact. Full, normal range of motion. Neuro: Awake and alert, GCS 15, oriented to person, place, time, and situation. Cranial nerves II-XII grossly intact. Motor strength 5/5 in all extremities. Sensory grossly intact. Cerebellar exam normal. Normal gait. Psych: Awake, alert, with orientation to person, place and time. Behavior, mood, and affect are within normal limits. Vital Signs: 00:09 Temp 98.8(TE); kl 00:54 BP 139 / 81; Pulse 112; Resp 20 S; Temp 97.9; Pulse Ox 97% on R/A; Weight 116.12 kg; ha1 Height 6 ft. 1 in. (185.42 cm); Pain 10/10; 01:50 BP 106 / 73; Pulse 112; Resp 20 S; Pulse Ox 98% on R/A; ha1 02:30 BP 108 / 74; Pulse 110; Resp 20 S; Pulse Ox 96% on R/A; ha1 03:30 BP 116 / 74; Pulse 105; Resp 20 S; Pulse Ox 96% on R/A; ha1 03:50 BP 110 / 70; Pulse 102; Resp 16 S; Pulse Ox 94% on R/A; ha1 04:00 BP 114 / 68; Pulse 103; Resp 18 S; Pulse Ox 94% on R/A; ha1 04:15 BP 121 / 64; Pulse 104; Resp 18 S; Pulse Ox 95% on R/A; ha1 05:00 BP 121 / 86; Pulse 98; Resp 20 S; Pulse Ox 95% on R/A; ha1 00:54 Body Mass Index 33.77 (116.12 kg, 185.42 cm) [facility] MDM: 00:01 Patient medically screened. uyen 00:56 Differential diagnosis: appendicitis, bowel obstruction, Cholelithiasis, uyen diverticulitis, gastritis, Mesenteric ischemia or infarction, non-specific abd pain, pancreatitis, Peptic Ulcer Disease, Prostatitis, Pyelonephritis, Ureterolithiasis, urinary tract infection. Data reviewed: vital signs, nurses notes, lab test result(s), radiologic studies, CT scan. Consideration of Admission/Observation Patient was admitted/placed on observation. Escalation of care including admission/observation considered. I considered the following discharge prescriptions or medication management in the emergency department Medications were administered in the Emergency Department. See MAR. Care significantly affected by the following chronic conditions: paraplegic, testicular cancer, uti. 08/22 00:02 Order name: CBC with Diff [facility] 08/22 00:02 Order name: CMP [facility] 08/22 00:02 Order name: Lipase [facility] 08/22 00:02 Order name: Urine Microscopic Only [facility] 08/22 01:52 Order name: CBC with Automated Diff; Complete Time: 03:04 [facility] 08/22 01:55 Order name: Urine Dipstick-Ancillary; Complete Time: 03:04 [facility] 08/22 01:57 Order name: Urine Culture [facility] 08/22 01:58 Order name: Comprehensive Metabolic Panel; Complete Time: 03:04 [facility] 08/22 01:58 Order name: Lipase; Complete Time: 03:04 [facility] 08/22 02:50 Order name: Manual Differential; Complete Time: 03:04 [facility] 08/22 02:50 Order name: Urine Microscopic Only; Complete Time: 03:04 [facility] 08/22 03:57 Order name: SARS RAPID [facility] 08/22 04:54 Order name: SARS-COV-2 Antigen Rapid; Complete Time: 05:09 [facility] 08/22 00:02 Order name: IV Saline Lock; Complete Time: 02:02 [facility] 08/22 00:02 Order name: Labs collected and sent; Complete Time: 02:02 [facility] 08/22 00:53 Order name: CT Abd/Pelvis - PO and IV Contrast [facility] 08/22 00:02 Order name: Urine Dipstick-Ancillary (obtain specimen); Complete Time: 02:02 [facility] Administered Medications: 01:20 Drug: NS 0.9% 1000 ml Route: IV; Rate: 1 bolus; Site: right antecubital; 1 02:58 Follow up: Response: No adverse reaction; IV Status: Completed infusion; IV Intake: ha1 1000ml 01:20 Drug: NS 0.9% 1000 ml Route: IV; Rate: 125 ml/hr; Site: right antecubital; ha1 01:21 Drug: Zofran (Ondansetron) 4 mg Route: IVP; Site: right antecubital; ha1 01:50 Follow up: Response: No adverse reaction ha1 01:25 Drug: morphine 4 mg Route: IVP; Infused Over: 4 mins; Site: right antecubital; ha1 01:50 Follow up: Response: No adverse reaction; Pain is decreased; RASS: Alert and Calm (0) ha1 01:28 Drug: Pepcid (famotidine) 20 mg Route: IVP; Site: right antecubital; ha1 02:00 Follow up: Response: No adverse reaction ha1 01:30 Drug: Lactulose 60 grams Volume: 45 ml; Route: PO; ha1 02:00 Follow up: Response: No adverse reaction ha1 01:30 Drug: Dulcolax (bisacodyl) Suppository 10 mg Route: [place]; ha1 02:00 Follow up: Response: No adverse reaction ha1 02:20 Drug: Rocephin (cefTRIAXone) 1 grams Route: IV; Rate: per protocol; Site: right ha1 antecubital; 02:50 Follow up: Response: No adverse reaction; IV Status: Completed infusion; IV Intake: [id number] 03:25 Drug: Zofran (Ondansetron) 4 mg Route: IVP; Site: right antecubital; ha1 04:50 Follow up: Response: No adverse reaction; Nausea is decreased ha1 03:30 Drug: Zosyn (piperacillin-tazobactam) 3.375 grams Route: IVPB; Infused Over: 60 mins; ha1 Site: right antecubital; 03:50 Follow up: Response: No adverse reaction ha1 03:33 Drug: Dilaudid (HYDROmorphone) 1 mg Route: IVP; Site: right antecubital; ha1 03:50 Follow up: Response: No adverse reaction; Pain is decreased; RASS: Alert and Calm (0) ha1 03:40 Drug: Potassium Effervescent Tablet 50 mEq Route: PO; ha1 03:50 Follow up: Response: No adverse reaction ha1 05:33 Drug: Augmentin (Amoxicillin-Clavulanate) 875 mg Route: PO; ha1 05:45 Follow up: Response: No adverse reaction ha1 Disposition Summary: 08/22/22 05:27 Discharge Ordered Location: Home uyen Problem: new(08/22/22 05:27) uyen Symptoms: have improved(08/22/22 05:27) uyen Condition: Stable(08/22/22 05:27) uyen Diagnosis - Elevated white blood cell count - SECONDARY TO NEULASTA(08/22/22 05:27) uyen - Pressure ulcer of sacral region, stage 4 - STABLE(08/22/22 05:27) uyen - Constipation uyen - Hypokalemia(08/22/22 05:27) uyen - Abdominal tenderness - LEFT LOWER QUADRANT(08/22/22 05:27) uyen - Paraplegia(08/22/22 05:27) uyen - UTI/ Urinary tract infection, site not specified(08/22/22 05:27) uyen - Abnormal findings on diagnostic imaging of other specified body structures - uyen BILATERAL NUMEROUS PULMONARY NODULES WELL CAVITARY LESION IN LEFT LOWER LOBE Followup: uyen - With: Private Physician - When: 2 - 3 days - Reason: Recheck today's complaints, Continuance of care, Re-evaluation by your physician Discharge Instructions: - Discharge Summary Sheet uyen - Abdominal Pain, Adult uyen - Potassium Content of Foods uyen - Urinary Tract Infection, Adult uyen - Urinary Tract Infection, Adult, [id number] uyen - Abdominal Pain, Adult, [id number] uyen - Hypokalemia uyen Forms: - Medication Reconciliation Form uyen - Thank You Letter uyen - Antibiotic Education uyen - Prescription Opioid Use uyen Prescriptions: - Augmentin 875-125 mg Oral Tablet - take 1 tablet by ORAL route every 12 hours for 10 days; 20 tablet; Refills: 0, uyen Product Selection Permitted - Colace 100 mg Oral Capsule - take 1 tablet by ORAL route every 12 hours; 20 tablet; Refills: 0, Product uyen Selection Permitted - Zofran 4 mg Oral Tablet - take 1 tablet by ORAL route every 12 hours As needed; 20 tablet; Refills: 0, uyen Product Selection Permitted - Lactulose 10 gram/15 mL Oral Solution - take 30 milliliters by ORAL route once daily; 300 milliliter; Refills: 0, uyen Product Selection Permitted Signatures: Dispatcher [employer] Zuleyma Barajas RN RN kl Anderson, Corey, MD MD cha Ayala, Heidy, RN RN ha1 Corrections: (The following items were deleted from the chart) 03:08 03:07 to [facility] uyen uyen 03:08 03:07 [facility] uyen uyen 03:08 03:08 to [facility] uyen uyen 05: 03:07 Higher level of care uyen uyen 05: 03:07 Stable uyen uyen : 03:07 new uyen uyen 03:07 have improved uyen uyen 05:23 03:07 UTI/ Urinary tract infection, site not specified uyen uyen 05: 03:07 Abdominal tenderness uyen uyen : 03:07 Elevated white blood cell count uyen qiu : 03:07 Paraplegia uyen uyen 03:07 Pressure ulcer of sacral region, stage 4 uyen uyen 03:08 [facility] uyen uyen : 03:08 to [facility] uyen uyen 05: 03:08 Hypokalemia [facility]
[2022-08-22] MEDS ORDERED: HYDROMORPHONE HCL 0.5 MG/0.5 ML INJ ONE (03:22)
[2022-08-22] MEDS ORDERED: PIPERACIL/TAZO 3.375 GM VIAL IV ONE (03:23)
[2022-08-22] MEDS ORDERED: POTASSIUM 25 MEQ EFFERV TAB ONE (03:23)
[2022-08-22] MEDS ORDERED: NA CHLORIDE 0.9% 100 ML ONE (03:24)
[2022-08-22 04:54] LABS: SARS-CoV-2 Antigen Rapid Res Negative (Negative)
[2022-08-22] MEDS ORDERED: AMOX/K CLAV 875 MG TAB ONE (05:38)
[2022-08-22 05:56] VITALS: TEMP 97.9
[2022-08-22 06:03] VITALS: O2SAT 95
[2022-08-22 06:04] VITALS: BP 121/86
--- NOTE | 2022-08-22 15:47 | RAD REPORT ---
EXAM DESCRIPTION: CT - Abdomen Pelvis W Contrast - 08/22/2022 5:31 am CLINICAL HISTORY: 37 years Male ABDOMINAL DISTENTION, history of stage IV testicular cancer, paraple gic, chronic osteomyelitis TECHNIQUE: Axial CT imaging of the abdomen and pelvis was performed following the administration of intravenous contrast.. Oral contrast was not administered. Sagittal and coronal reconstructed image s were then performed. The CT study is performed according to ALARA (as low as reasonably achievabl e) or ALARA/IMAGE GENTLY, with automatic adjustment of mA and/or kV according to patient size. Performed on: 08/22/2022 at 3:04 AM. COMPARISON: CT abdomen and pelvis performed on 08/08/2022 FINDINGS: Lung bases: Again demonstrated are numerous bilateral pulmonary parenchymal nodules as wel l as a cavitary lesion in the lateral left lower lobe consistent with either metastatic disease or a diffuse infectious or inflammatory process. Liver: Liver measures approximately 21 cm in craniocaudal dimension. No focal hepatic abnormalities are identified. Liver attenuation is within normal limits. The hepatic and portal veins are patent. Spleen: The spleen is normal in size, configuration and attenuation. Gallbladder and bile duct: The gallbladder is well distended and unremarkable. There is no biliary ductal dilatation. Pancreas: The pancreas is grossly normal in size and configuration. Adrenal Glands: The adrenal glands are normal in size and configuration. Kidneys: The kidneys are normal in size and configuration. There is no evidence of hydronephrosis. Th ere is no evidence of nephrolithiasis. No definite solid or cystic renal mass lesions are identified. Stomach: The stomach is grossly normal. There is no definite hiatal hernia. Bowel: The bowel gas pattern is non specific and non obstructive. There is moderate fecal residue sca ttered throughout the colon. Appendix: The appendix is normal. Free air: There is no evidence of free air. Free fluid: There is no evidence of free fluid. Vasculature: The aorta is normal in caliber and contour. The inferior vena cava is grossly unremarkab le. And inferior vena cava filter is present in stable position. Lymphadenopathy: There is grossly stable retroperitoneal lymphadenopathy. There is also grossly stabl e left external iliac chain lymphadenopathy. Bladder: The bladder is well distended and smooth in contour. Reproductive: The prostate gland is grossly within normal limits. Bones: No acute osseous abnormalities are identified. There are remote postsurgical changes of thorac olumbar spine from T11 through L1 performed for stabilization of a burst fracture of T12. There is no evidence to suggest hardware failure. 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 Also note d are chronic changes involving the left inferior pubic ramus secondary to a deep posterior left isch ial decubitus ulcer/abscess with a percutaneous fistulous tract with surrounding soft tissue thickeni ng. There is chronic sclerosis and fragmentation of the posterior inferior left pubic ramus. There is partial ankylosis of the sacroiliac joints. Soft tissues: There is diffuse muscular atrophy involving the muscles of the hips and pelvis includin g the psoas muscles. There is mild subcutaneous emphysema along the left lower anterior abdominal wal l which may be related to medication injection IMPRESSION: 1. Again demonstrated are numerous bilateral pulmonary parenchymal nodules as well as a cavitary lesion in the lateral left lower lobe consistent with either metastatic disease or a diffu se infectious or inflammatory process. 2. Grossly stable retroperitoneal and left external iliac chain lymphadenopathy. 3. Chronic stable changes involving the left inferior pubic ramus secondary to a deep posterior lef t ischial decubitus ulcer/abscess with a percutaneous fistulous tract with surrounding soft tissue th ickening. There is chronic sclerosis and fragmentation of the posterior inferior left pubic ramus. 4. Remote postsurgical changes of the thoracolumbar spine from T11 through L1 performed for stabili zation of a burst fracture of T12. 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 5. Diffuse muscular atrophy involving the muscles of the hips and pelvis including the psoas muscle s. 6. Moderate fecal residue scattered throughout the colon. There are no findings on this examination to explain new abdominal distention 7. Hepatomegaly. 8. Inferior vena cava filter in stable position. Electronically signed by: Vanesa Silverman DO 08/22/2022 4:04 AM [employer] Due to temporary technical issues with the PACS/Fluency reporting system, reports are being signed by the in house radiologists without review as a courtesy to insure prompt reporting. The interpreting radiologist is fully responsible for the content of the report.
== END 2022-08-22 05:51 | disposition home or self-care (01) ==
LOC: ER 23:38
DX: K59.00 Constipation, unspecified (principal); N39.0 Urinary tract infection, site not specified; E87.6 Hypokalemia; D72.829 Elevated white blood cell count, unspecified; R93.89 Abnormal findings on diagnostic imaging of other specified body structures; L89.154 Pressure ulcer of sacral region, stage 4; G82.20 Paraplegia, unspecified; Z20.822 Contact with and (suspected) exposure to COVID-19; Z85.47 Personal history of malignant neoplasm of testis
CPT/HCPCS: 36415; 74177; 80053; 81003; 81015; 83690; 85025; 87086; 87088; 87811; J1170; J2405; J2543; J7030; Q9967